=== PATIENT | male | born 1945 | race Caucasian/White ===

== ENCOUNTER → 2017-04-14 09:03 | Outpatient (CLI) | payer MEDICARE, SELFPAY ==
[2017-04-14 15:55] LABS: T3 Total - Triiodothyronine 0.78 ng/mL (0.6-1.81)
[2017-04-14 15:56] LABS: Ferritin 54 ng/mL (26-388); Iron 58 ug/dL (65-175); T4 Free Direct 1.14 ng/dL (0.76-1.46); Thyroid Stim Hormone (TSH) 1.95 uIU/mL (0.358-3.74)
== END ==
PROVIDERS: Family Provider Family Medicine; PCP Family Medicine; Visit Provider Family Medicine
DX: E03.9 Hypothyroidism, unspecified (principal); D64.9 Anemia, unspecified
CPT/HCPCS: 36415; 82728; 83540; 84439; 84443; 84480

== ENCOUNTER → 2017-04-21 09:16 | Outpatient (CLI) | payer MEDICARE, SELFPAY ==
--- NOTE | 2017-04-21 09:22 | RAD_ITS ---
STUDY: X-RAY - ABDOMEN/PELVIS REASON FOR EXAM: Male, 71 years old. COLITIS, HX T4 PARAPLEGIC TECHNIQUE: Single AP view of the abdomen / pelvis. COMPARISON: None. FINDINGS: Normal visualized lung bases. There is a moderate amount of colonic fecal material. There is no demonstrated free abdominal air. Large amount of stool in the rectal vault can suggest constipation. The visualized liver, spleen and kidneys are grossly normal in size and morphology. Normal soft tissue structures. Normal visualized osseous structures. RAD/Abdomen Single View IMPRESSION: CONSTIPATION Electronically Signed: Prince Reveles MD at 16:48 EDT , Service support ,
== END ==
PROVIDERS: Family Provider Family Medicine; PCP Family Medicine; Visit Provider Family Medicine
DX: K52.9 Noninfective gastroenteritis and colitis, unspecified (principal)
CPT/HCPCS: 74018

== ENCOUNTER → 2017-05-12 15:45 | Outpatient (CLI) | payer MEDICARE, SELFPAY ==
--- NOTE | 2017-05-12 15:50 | RAD_ITS ---
STUDY: X-RAY - ABDOMEN/PELVIS REASON FOR EXAM: Male, 71 years old. Worsening constipation. Paraplegic. TECHNIQUE: Single AP view of the abdomen / pelvis. COMPARISON: 04/21/2017. FINDINGS: Normal visualized lung bases. There is no definite bowel obstruction, but there is prominent diffuse fecal retention and increasing air and fecal material throughout all bowel loops. No definitely distended loops of bowel. There is no demonstrated free abdominal air. The visualized liver, spleen and kidneys are grossly normal in size and morphology. Normal soft tissue structures. There are diffuse degenerative changes of the visualized lumbar spine. Marked deformities throughout the hips and pubic bones. These are stable. RAD/Abdomen Single View IMPRESSION: Increasing bowel gas and fecal material throughout the GI tract. Electronically Signed: Kalin Curry MD at 11:00 EDT , Service support ,
== END ==
PROVIDERS: Family Provider Family Medicine; PCP Family Medicine; Visit Provider Family Medicine
DX: K59.00 Constipation, unspecified (principal)
CPT/HCPCS: 74018

== ENCOUNTER → 2017-06-05 08:32 | Outpatient (CLI) | payer MEDICARE, SELFPAY ==
[2017-06-05 09:54] LABS: Mean Corp Hgb Conc 32.4 g/gl (32-36); Mean Corpuscular Hgb 28.4 pg (27.0-32.0); Mean Corpuscular Volume 87.5 fL (80-94); Mean Platelet Vol. 9.4 fl (6.2-12.0); Platelet Count 226 K/mm3 (150-450); RBC Distribution Width SD 44.1 fl (35.1-43.9); Red Blood Count 4.23 M/mm3 (4.6-6.2); White Blood Count 6.4 K/mm3 (4.4-11.0)
[2017-06-05 10:00] LABS: Scan Indicated on CBC? Y/N NO
[2017-06-05 10:24] LABS: Hemoglobin A1c 9.2 % (4.2-6.3)
== END ==
PROVIDERS: Family Provider Family Medicine; PCP Family Medicine; Visit Provider Surgery
DX: E11.8 Type 2 diabetes mellitus with unspecified complications (principal); K92.1 Melena
CPT/HCPCS: 36415; 83036; 85027

== ENCOUNTER 2017-06-18 09:10 | Observation (INO) | payer MEDICARE, SELFPAY ==
[2017-06-18 10:09] VITALS: BMI 22.4
[2017-06-18 10:15] VITALS: BP 102/63; PULSE 65; RESP 16; TEMP 36.5; O2SAT 97
[2017-06-18 11:15] LABS: Bedside Glucose 181 mg/dL (70-110)
[2017-06-18 11:28] LABS: Hematocrit 34.7 % (40-54); Hemoglobin 11.6 g/dl (13.0-16.5); Mean Corp Hgb Conc 33.4 g/gl (32-36); Mean Corpuscular Hgb 28.9 pg (27.0-32.0); Mean Corpuscular Volume 86.3 fL (80-94); Mean Platelet Vol. 9.2 fl (6.2-12.0); Platelet Count 200 K/mm3 (150-450); RBC Distribution Width CV 13.7 % (11.6-14.6); RBC Distribution Width SD 42.3 fl (35.1-43.9); Red Blood Count 4.02 M/mm3 (4.6-6.2); Scan Indicated on CBC? Y/N NO; White Blood Count 7.4 K/mm3 (4.4-11.0)
[2017-06-18] MEDS: Electrolyte Solution/Peg's 4000 ML PO (12:16)
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
--- NOTE | 2017-06-18 14:27 | NURSING ---
wound photo: sacrum
--- NOTE | 2017-06-18 14:28 | NURSING ---
wound photo: francesco-rectal area
--- NOTE | 2017-06-18 14:28 | NURSING ---
wound photo: left lateral ankle
[2017-06-18 14:35] VITALS: BP 129/65; PULSE 83; RESP 16; TEMP 36.6; O2SAT 98
[2017-06-18 15:55] LABS: Bedside Glucose 158 mg/dL (70-110)
[2017-06-18 20:27] VITALS: BP 153/66; PULSE 84; RESP 18; TEMP 36.6; O2SAT 100
[2017-06-18 20:50] VITALS: BP 153/66; PULSE 84
[2017-06-18] MEDS: Metoprolol Tartrate 25 MG Tablet PO (20:50)
[2017-06-18] MEDS: Pravastatin 40 MG Tablet PO (20:51)
[2017-06-18 23:16] LABS: Bedside Glucose 156 mg/dL (70-110)
[2017-06-19] VITALS (11 sets, daily range): BP systolic 117–135; BP diastolic 54–78; PULSE 82–106; RESP 16–18; TEMP 36.6–37.3; O2SAT 97–100
--- NOTE | 2017-06-19 | GASB_PTH ---
PATIENT: LUIS CEDILLO LOC: MS3 U#:[id number] AGE/SX: 71/M [place]OM: [facility] [place]18/[address]: Dr. Katherin Isidro MD : 1945 BED: 1 DIS: 06/20/2017 SPEC #: [id number] RECD: 06/19/17 15:00 STATUS: ACE JHONY #: [id number] CLIFFORD: 06/19/17 00:[address]: Katherin Isidro DEPT: SURGICAL PATHOLOGY RECD BY: Thaddeus Khan ENTERED: 06/19/17 15:01 SP TYPE: Gastric Bx OTHR DR: Dr. Angelina Caceres DO Tissues: A - Gastric mucous membrane B - Gastric mucous membrane Procedures: Special Stain Group II Surgery Specimen Level IV Alcian Blue/PAS (control) HEADER OPERATION: EGD PRE-OP DIAGNOSIS: GERD, epigastric pain, chronic diarrhea TISSUE SUBMITTED: A ? Antral biopsy for histo and H. pylori, B ? GE junction biopsy MICROSCOPIC DIAGNOSIS A. Antral biopsy: Mild gastritis. B. GE junction, biopsy: Fragment of gastric mucosa with mild chronic inflammation. Negative for intestinal metaplasia (goblet cell metaplasia). SJ:eda 06/20/17 COMMENT A. The results of immunohistochemistry for Helicobacter pylori will be reported separately ([id number]). B. Alcian blue/PAS stain with matched control is used in the evaluation of the specimen. MICROSCOPIC DESCRIPTION Slides are reviewed. A. The specimen shows fragments of gastric mucosa with chronic inflammatory cell infiltrates in the lamina propria consisting of lymphocytes and plasma cells, consistent with mild chronic gastritis. GROSS DESCRIPTION A - Received in fixative is one container labeled with the patient's name and designated antral biopsy. The specimen consists of one irregular fragment of light duncan soft tissue that measures 0.6 x 0.3 x 0.1 cm. The specimen is totally submitted in one cassette. B - Received in fixative is one container labeled with the patient's name and designated GE junction. The specimen consists of one irregular fragment of light duncan soft tissue that measures 0.5 x 0.3 x 0.1 cm. The specimen is totally submitted in one cassette. / AM:eda 06/19/17 TC:3 CPT: 93475 x2, 59580
--- NOTE | 2017-06-19 | IMM_PTH ---
PATIENT: LUIS CEDILLO LOC: MS3 U#:[id number] AGE/SX: 71/M ROOM: [facility] RE06/18/[address]: Dr. Katherin Isidro MD : 1945 BED: 1 DIS: 06/20/2017 SPEC #: [id number] RECD: 06/20/17 10:40 STATUS: ACE REQ #: [id number] CLIFFORD: 06/19/17 00:[address]: Katherin Isidro DEPT: IMMUNOHISTOCHEMISTRY RECD BY: Evie Engel ENTERED: 06/20/17 10:41 SP TYPE: IMMUNO OTHR DR: Dr. Angelian Caceres, DO Tissues: A - Stomach, NOS Procedures: H Pylori (initial) PHYSICIAN & INSTITUTION [place] [address] SPECIMEN INFORMATION: Tissue Source: A ? Antral biopsy Clinical Info: GERD, epigastric pain, chronic diarrhea Specimen Number: [id number] CPT code: 28812 METHODOLOGY: Deparaffinized sections of prefer/formalin-fixed tissue or PAP/DQ stained slides are incubated with monoclonal/polyclonal antibodies/oligonucleotide probes. Localization is made via biotin free immunoperoxidase method. Appropriate controls are performed and reacted as expected. Results on target cell population are indicated in the following table: RESULTS: ANTIBODY / CLONE RESULT Block A H Pylori (polyclonal) negative These tests were developed and their performance characteristics determined by [facility]. They may not have been cleared or approved by the U.S. Food and Drug Administration. The FDA has determined that such clearance or approval is not necessary. INTERPRETATION: A. Antral biopsy: Negative for Helicobacter pylori organisms. SJ:eda 06/23/17
[2017-06-19] MEDS: 0.9% NaCl Peripheral Flush Adult/Peds IV ×2 (02:40→20:08)
[2017-06-19] MEDS: Bisacodyl 5 MG Tablet 10 MG PO ×2 (02:41→08:39)
[2017-06-19] MEDS: Magnesium Citrate 300 ML 150 ML PO (03:45)
--- NOTE | 2017-06-19 05:38 | EKG12_ITS ---
Test Reason : AM EKG Blood Pressure : / mmHG Vent. Rate : 095 BPM Atrial Rate : 095 BPM P-R Int : 146 ms QRS Dur : 074 ms QT Int : 330 ms P-R-T Axes : 083 017 077 degrees QTc Int : 414 ms Normal sinus rhythm Nonspecific T wave abnormality Abnormal ECG When compared with ECG of 20-NOV-2016 06:18, No significant change was found Confirmed by EROS ALFONSO, PRABHA ([id number]), science editor JAIDEN KRISHNAMURTHY ([id number]) on 06/27/2017 3:02:12 PM Referred By: Katherin Isidro Confirmed By:PRABHA COONEY MD
[2017-06-19 06:45] LABS: Anion Gap 11 (5-15); BUN 27 mg/dL (7-18); Calcium,Total 8.2 mg/dL (8.5-10.1); Chloride 112 mmol/L (98-107); Creatinine, Serum 0.61 mg/dL (0.70-1.30); EST Glomerular Filtration Rate 137 mL/min (>60); Est Glom Filt Rate - Afr Amer 165 mL/min (>60); Estimated Creatinine Clearance 67.09 ml/min; Glucose 170 mg/dL (74-106); Potassium 4.3 mmol/L (3.5-5.1); Sodium Level 139 mmol/L (136-145)
[2017-06-19 06:48] LABS: International Normalized Ratio 1.1; Prothrombin Time (Protime)PT. 13.8 SECONDS (11.7-14.9)
[2017-06-19 06:49] LABS: Absolute Lymphocyte Count 1.06 X10^3/ul (0.83-4.51); Absolute Neutrophil Count 7.3 X10^3/uL (2.0-7.7); Basophil# 0.01 X10^3/uL; Basophil% 0.1 % (0-1); Eosinophil# 0.09 X10^3/uL; Hematocrit 33.9 % (40-54); Hemoglobin 11.1 g/dl (13.0-16.5); Lymphocyte # 1.06 X10^3/ul (4.0); Lymphocyte % 11.6 % (19-41); Mean Corp Hgb Conc 32.7 g/gl (32-36); Mean Corpuscular Hgb 28.5 pg (27.0-32.0); Mean Corpuscular Volume 87.1 fL (80-94); Mean Platelet Vol. 9.1 fl (6.2-12.0); Monocyte% 7.6 % (0-10); Neutrophil % 79.6 % (47-70); Partial Thromboplast Time 32.6 Seconds (24.1-36.2); Platelet Count 196 K/mm3 (150-450); RBC Distribution Width CV 13.9 % (11.6-14.6); RBC Distribution Width SD 43.1 fl (35.1-43.9); Red Blood Count 3.89 M/mm3 (4.6-6.2); White Blood Count 9.2 K/mm3 (4.4-11.0)
[2017-06-19] MEDS: Levothyroxine 25 MCG TABLET PO (06:52)
[2017-06-19 06:54] LABS: POSITIVE COUNT NO; POSITIVE DIFFERENTIAL NO; POSITIVE MORPHOLOGY NO
[2017-06-19 07:06] LABS: AST(SGOT) 8 U/L (15-37); Alanine Aminotransfer ALT/SGPT 11 U/L (16-61); Albumin, Serum 2.6 g/dL (3.2-5.0); Alkaline Phosphatase 89 U/L (45-117); Bilirubin, Direct 0.07 mg/dL (0.00-0.30); Globulin 3.5 g/dL (2.2-4.2); Protein, Total 6.1 g/dL (6.4-8.2)
[2017-06-19 07:06] LABS: Bedside Glucose 172 mg/dL (70-110)
[2017-06-19] MEDS: Pantoprazole Sodium 40 MG Tablet PO (07:54)
[2017-06-19] MEDS: Metoprolol Tartrate 25 MG Tablet PO (07:54)
[2017-06-19 11:05] LABS: Bedside Glucose 220 mg/dL (70-110)
--- NOTE | 2017-06-19 11:44 | NURSING ---
Report called to Jessa PEDROZA.
--- NOTE | 2017-06-19 13:57 | PCM.OPRPT ---
Report of Operation Date of Procedure: 06/19/17 Pre-Operative Diagnosis: GERD, Epigastric pain, chronic diarrhea Post-Operative Diagnosis: Gastritis/GERD, incomplete colonoscopy due to poor prep only able to get to the sigmoid with very poor visibility Surgery/Procedure Performed:: EGD with biopsy, flexible sigmoidoscopy Type of Anesthesia:: MAC Anesthesiologist: Sampson Faith Specimen's removed: 1. Antrum 2. GE junction Estimated Blood Loss (mL): Minimal Description of Procedure: Procedure: EGD with biopsy After obtaining informed consent, the endoscope was passed under direct visualization. Throughout the procedure, patient's blood pressure, pulse, oxygen saturations were monitored continuously by anesthesia. The endoscope was introduced through the mouth and advanced to the 2nd part of the duodenum. The upper GI endoscopy was accomplished without difficulty. Patient tolerated procedure well. Findings: Small hiatal hernia was present. Erythematous mucosa found gastric body and antrum. There is also mucosal change at the GE junction biopsy with cold forceps was taken of this area as well Biopsies were taken with cold biopsy for histology. Estimated blood loss was minimal. The duodenum was normal. Impression: 1. Small hiatal hernia 2. Erythematous mucosa in the body and antrum. Biopsied. 3. Normal examined duodenum Recommendations: -Await biopsies -Continue PPI -Will start Carafate 1 g p.o. 4 times daily once he finishes his repeat bowel prep for his colonoscopy Procedure: Flexible sigmoidoscopy After reviewing the risks benefits, the patient was deemed in satisfactory condition to undergo procedure. After obtaining informed consent, the scope was passed under direct visualization. Throughout the procedure, the patient's blood pressure pulse and position saturations were monitored continuously anesthesia. The colonoscope was introduced through the anus there is still solid stool as well as thick brown liquid stool. The patient tolerated procedure well. Quality of bowel prep was poor unable to complete colonoscopy. Findings: The perianal and digital rectal exam internal hemorrhoids due to lack sphincter due to his paraplegia There is solid stool as well as thick brown/duncan liquid stool unable to visualize well and only able to get to the proximal sigmoid colon. Impression: 1. Poor prep need to repeat colonoscopy after reprepping Recommendations: Will give the patient Dulcolax and magnesium citrate to reprepped and see if he is having clear stools at that time if not will continue the bowel prep.
[2017-06-19] MEDS: Bisacodyl 5 MG Tablet 20 MG PO (14:36)
[2017-06-19] MEDS: Magnesium Citrate 300 ML PO (16:36)
[2017-06-19 16:45] LABS: Bedside Glucose 134 mg/dL (70-110)
[2017-06-19] MEDS: Ondansetron 4 MG/2 ML Vial IV (20:08)
[2017-06-19 22:11] LABS: Bedside Glucose 153 mg/dL (70-110)
[2017-06-20] VITALS (11 sets, daily range): BP systolic 115–153; BP diastolic 53–80; PULSE 82–110; RESP 14–20; TEMP 36.6–37.3; O2SAT 97–100; BMI 22.4
--- NOTE | 2017-06-20 | COLBX_PTH ---
PATIENT: LUIS CEDILLO LOC: MS3 U#:[id number] AGE/SX: 71/M ROOM: [facility] [place] RE06/18/[address]: Dr. Katherin Isidro MD : 1945 BED: 1 DIS: 06/20/2017 SPEC #: [id number] RECD: 06/20/17 14:36 STATUS: ACE REDenzel #: [id number] CLIFFORD: 06/20/17 00:[address]: Katherin Isidro DEPT: SURGICAL PATHOLOGY RECD BY: Thaddeus Khan ENTERED: 06/20/17 14:38 SP TYPE: COLON BX PAIGE DR: Dr. Angelina Caceres DO Tissues: A - Descending colon B - Sigmoid colon biopsy C - Sigmoid colon biopsy D - Rectum, NOS Procedures: Surgery Specimen Level IV HEADER OPERATION: Colonoscopy PRE-OP DIAGNOSIS: Diarrhea TISSUE SUBMITTED: A ? Descending colon biopsy at 50 cm, B ? Sigmoid colon biopsy, C ? Distal sigmoid colon biopsy at 20 cm, D ? Rectal biopsy MICROSCOPIC DIAGNOSIS A. Descending colon at 50 cm, biopsy: Fragments of colonic mucosa, no pathologic diagnosis. B. Sigmoid colon, biopsy: Fragment of colonic mucosa, no pathologic diagnosis. C. Distal sigmoid colon at 20 cm, biopsy: Fragments of colonic mucosa, no pathologic diagnosis. D. Rectal biopsy: Fragments of colonic mucosa, no pathologic diagnosis. SJ:eda 06/23/17 MICROSCOPIC DESCRIPTION Slides are reviewed. GROSS DESCRIPTION A - Received in fixative is one container labeled with the patient's name and designated descending colon biopsy. The specimen consists of two irregular fragments of light duncan soft tissue that in aggregate measure 0.3 x 0.2 x 0.1 cm. The specimen is totally submitted in one cassette. B - Received in fixative is one container labeled with the patient's name and designated sigmoid colon biopsy. The specimen consists of one irregular fragment of light duncan soft tissue that measures 0.6 x 0.3 x 0.1 cm. The specimen is totally submitted in one cassette. C - Received in fixative is one container labeled with the patient's name and designated distal sigmoid. The specimen consists of two irregular fragments of light duncan soft tissue that in aggregate measure 0.5 x 0.5 x 0.2 cm. The specimen is totally submitted in one cassette. D - Received in fixative is one container labeled with the patient's name and designated rectal biopsy. The specimen consists of one irregular fragment of light duncan soft tissue that measures 0.3 x 0.2 x 0.1 cm. The specimen is totally submitted in one cassette. / AM:eda 06/20/17 TC:4 CPT: 34275 x4
--- NOTE | 2017-06-20 00:50 | NURSING ---
This RN notified primary RN that patient started having bile vomit of at least 200mls+. Stool remains watery graining brown color. Patient stated he felt dizzy and didnt feel right, sweaty, BG was 148 when checked. PRN zofran not available to give until 0200.
--- NOTE | 2017-06-20 00:52 | NURSING ---
Patient states that since he vomitied he does feel better.
[2017-06-20 01:00] LABS: Bedside Glucose 148 mg/dL (70-110)
--- NOTE | 2017-06-20 01:14 | NURSING ---
Made aware by SOO & YOVANY Moctezuma that pt became light-headed and sweaty. Blood sugar was checked and came back at 148. Pt then vomited around 200ml of bile. Pt states feels much better after he vomited & does not need any nausea meds at this time. Pt was cleaned up and repositioned in bed. Will continue to monitor.
[2017-06-20] MEDS: Ondansetron 4 MG/2 ML Vial IV (04:02)
[2017-06-20] MEDS: 0.9% NaCl Peripheral Flush Adult/Peds IV (04:02)
--- NOTE | 2017-06-20 04:10 | NURSING ---
Pt had another episode of getting sweaty and then vomited about 100ml of green bile. denies dizziness this time. Pt states feels better, Zofran was given. Denies abd pain. Abd soft, bowel sounds present. Will make MD aware. INJECTION MOLDING ENGINEER states stools are still liquid brown.
--- NOTE | 2017-06-20 05:30 | NURSING ---
Soap suds enema given per MD orders.
[2017-06-20 06:46] LABS: Anion Gap 11 (5-15); BUN 24 mg/dL (7-18); BUN/Creat Ratio 38.2 RATIO (10-20); Calcium,Total 8.3 mg/dL (8.5-10.1); Chloride 113 mmol/L (98-107); Creatinine, Serum 0.63 mg/dL (0.70-1.30); EST Glomerular Filtration Rate 133 mL/min (>60); Est Glom Filt Rate - Afr Amer 161 mL/min (>60); Estimated Creatinine Clearance 67.09 ml/min; Glucose 158 mg/dL (74-106); Potassium 5.3 mmol/L (3.5-5.1); Sodium Level 140 mmol/L (136-145)
[2017-06-20 07:04] LABS: Magnesium 2.4 mg/dL (1.6-2.6)
[2017-06-20] MEDS: 0.9% Normal Saline 1,000 ML 125 ML IV (07:25)
--- NOTE | 2017-06-20 07:51 | NURSING ---
Pt is scheduled for a repeat colonoscopy today since prep was not effective enough yesterday. will monitor wounds. difficult to keep areas clean d/t prep.
--- NOTE | 2017-06-20 08:04 | NURSING ---
called report to Julio C PEDROZA.
[2017-06-20 09:02] LABS: Potassium 5.2 mmol/L (3.5-5.1)
--- NOTE | 2017-06-20 09:09 | PCM.PN.SRG ---
Subjective: +n/v with the bowel prep, stool is liquid yellow - Physical Exam General: Alert, Oriented x3, Cooperative, No apparent distress Lungs: Normal air movement Cardiovascular: Regular rate Abdomen: Soft, Non Tender, Distended - mild, Hernia - ventral hernia- reducible, - - no guarding/rebound, urostomy pink Vital Signs Temp Pulse Resp BP Pulse Ox 98.1 F 94 14 137/60 H 100 06/20/17 08:38 06/20/17 08:38 06/20/17 08:38 06/20/17 08:38 06/20/17 08:38 Oxygen Delivery Method Room Air Weight: 158 lb 15.253 oz Body Mass Index (BMI) 22.4 Intake and Output for Last 24 Hours 06/18/17 06/19/17 06/20/17 23:59 23:59 23:59 Intake Total 3050 / 3050 4323 / 4323 2044 / 2044 Output Total 700 / 700 1900 / 1900 1000 / 1000 Balance 2350 / 2350 2423 / 2423 1044 / 1044 Laboratory Tests Past 24 Hrs 06/20/17 06/20/17 06/20/17 06:16 06:20 08:05 Sodium 140 Potassium 5.3 H 5.2 H Chloride 113 H Carbon Dioxide 16.0 L Anion Gap 11 BUN 24 H Creatinine 0.63 L Estim Creat Clear Calc 67.09 Est GFR (MDRD) Af Amer 161 Est GFR (MDRD) Non-Af 133 BUN/Creatinine Ratio 38.2 H Glucose 158 H Calcium 8.3 L Magnesium 2.4 POC Glucose 06/20/17 06/19/17 06/19/17 00:47 22:00 16:34 POC Glucose 148 H 153 H 134 H 06/19/17 10:58 POC Glucose 220 H Medical Necessity - Tobacco Use Smoking Status: Never smoker Assessment/Plan 71-year-old male with GERD and chronic diarrhea 1.. Pt had some n/v with the additional bowel prep yesterday, but stool is yellow liquid currently. Plan for colonoscopy today. due to pt chronic diarrhea will take random biopsies to look for etiology of diarrhea, but EGD did show gastritis which could also cause diarrhea- await biopsies. Katherin Isidro M.D. Pager: [phone] [facility] [address] [place] [address], [facility], [address] [place] [address] Office: [phone]
--- NOTE | 2017-06-20 09:13 | PN.SURG_ITS ---
Subjective: +n/v with the bowel prep, stool is liquid yellow - Physical Exam General: Alert, Oriented x3, Cooperative, No apparent distress Lungs: Normal air movement Cardiovascular: Regular rate Abdomen: Soft, Non Tender, Distended - mild, Hernia - ventral hernia- reducible , - - no guarding/rebound, urostomy pink Vital Signs Temp Pulse Resp BP Pulse Ox 98.1 F 94 14 137/60 H 100 06/20/17 08:38 06/20/17 08:38 06/20/17 08:38 06/20/17 08:38 06/20/17 08:38 Oxygen Delivery Method Room Air Weight: 158 lb 15.253 oz Body Mass Index (BMI) 22.4 Intake and Output for Last 24 Hours 06/18/17 06/19/17 06/20/17 23:59 23:59 23:59 Intake Total 3050 / 3050 4323 / 4323 2044 / 2044 Output Total 700 / 700 1900 / 1900 1000 / 1000 Balance 2350 / 2350 2423 / 2423 1044 / 1044 Laboratory Tests Past 24 Hrs 06/20/17 06/20/17 06/20/17 06:16 06:20 08:05 Sodium 140 Potassium 5.3 H 5.2 H Chloride 113 H Carbon Dioxide 16.0 L Anion Gap 11 BUN 24 H Creatinine 0.63 L Estim Creat Clear Calc 67.09 Est GFR (MDRD) Af Amer 161 Est GFR (MDRD) Non-Af 133 BUN/Creatinine Ratio 38.2 H Glucose 158 H Calcium 8.3 L Magnesium 2.4 POC Glucose 06/20/17 06/19/17 06/19/17 00:47 22:00 16:34 POC Glucose 148 H 153 H 134 H 06/19/17 10:58 POC Glucose 220 H Medical Necessity - Tobacco Use Smoking Status: Never smoker Assessment/Plan 71-year-old male with GERD and chronic diarrhea 1.. Pt had some n/v with the additional bowel prep yesterday, but stool is yellow liquid currently. Plan for colonoscopy today. due to pt chronic diarrhea will take random biopsies to look for etiology of diarrhea, but EGD did show gastritis which could also cause diarrhea- await biopsies. Katherin Isidro M.D. Pager: [phone] [facility] [address] [place] [address], [facility], [address] [place] [address] Office: [phone]
--- NOTE | 2017-06-20 10:47 | OP.PCM_ITS ---
Report of Operation Date of Procedure: 06/20/17 Pre-Operative Diagnosis: chronic diarrhea Post-Operative Diagnosis: incomplete colonoscopy due to poor prep only able to get to the sigmoid with very poor visibility- random biopsies taken of descending/sigmoid/rectum Surgery/Procedure Performed:: flexible sigmoidoscopy with biopsy Type of Anesthesia:: MAC Anesthesiologist: Kaden Jiménez Specimen's removed: 1. Descending colon, 2. Sigmoid colon, 3. Distal sigmoid colon, 4. Rectum Estimated Blood Loss (mL): Minimal Description of Procedure: Procedure: Repeat flexible sigmoidoscopy with biopsies After reviewing the risks benefits, the patient was deemed in satisfactory condition to undergo procedure. After obtaining informed consent, the scope was passed under direct visualization. Throughout the procedure, the patient's blood pressure pulse and position saturations were monitored continuously anesthesia. The colonoscope was introduced through the anus and advanced to the descending colon unable to proceed further due to solid stool with fibrous material. The tong of the sigmoid and descending colon also were kicked with fibrous material that was unable to be removed even with syringe irrigation. Quality of the prep was poor. The patient tolerated procedure well. Findings: The perianal and digital rectal exam revealed internal hemorrhoids and pressure ulcers in his upper gluteal cleft as well as the base of his scrotum. Due to poor prep and solid fibrous stool along with fibrous material caked on the colonic mucosa unable to be removed with syringe irrigation there was poor visibility. Did attempt to wash off some of the mucosa and take random biopsies of the descending, sigmoid, distal sigmoid colon, rectum due to patient 's chronic diarrhea Retroflexed view of the distal rectum and anal verge revealed internal hemorrhoids. Impression: 1. Poor visibility due to prep, random biopsies were taken of the descending, sigmoid, distal sigmoid colon and rectum 2. The distal rectal and anal verge revealed internal hemorrhoids. 3. Pressure ulcers will refer patient to wound center Recommendations: Await biopsies were also have patient start Carafate for his gastritis to see if that makes any difference for his chronic diarrhea but as evidenced by his colonoscopy prep he does not just have chronic diarrhea as he may also have a factor of slow motility. Patient is unable to tolerate the repeat prep yesterday patient will need a repeat colonoscopy in the future would likely be required to be on clears for at least a week prior to trying any prep. He initially was on clears for a day and had GoLSTUARTLY, 4 Dulcolax tabs and half a bottle of mag citrate which still had a poor prep then the following day he was still on clears and had 4 more Dulcolax tabs and a bottle of mag citrate and was unable to tolerate any other prep due to nausea and vomiting. On exam he still had solid fibrous stool. Did discuss with patient that due to his issues with diarrhea unable unable to keep the area clean and his pressure ulcers he may require diverting colostomy. Patient is agreeable to see colorectal surgeon to have this done as he has had multiple abdominal surgeries and also has a urostomy currently in place. He was interested in seeing anyone who specializes with paraplegia as to if his colon motility could be related to that. Will check at [facility]. - Complications none
--- NOTE | 2017-06-20 10:48 | PCM.DC.GS ---
Discharge Diet: Light diet - advance as tolerated Discharge Activity: Return to Normal Activity Allergies/Adverse Reactions: Allergies codeine Adverse Reaction (Verified 05/28/17 13:10) heavy sweats prednisone Adverse Reaction (Verified 05/28/17 13:10) headache, heavy sweats Medications to take at Discharge Metformin HCl 1,000 mg PO BID 05/26/14 Ascorbic Acid [C-1000] 1,000 mg PO DAILY 01/02/15 Glimepiride [Amaryl] 4 mg PO DAILY 01/02/15 Levothyroxine [Synthroid] 25 mcg PO DAILY 01/02/15 Metoprolol Tartrate [Lopressor (beta jose)] 25 mg PO BID 01/02/15 Cholecalciferol (Vitamin D3) [Vitamin D3] 1,000 unit PO DAILY 04/05/16 colestipol 1 gram tablet 1 g PO ONCE 05/28/17 omeprazole 40 mg capsule,delayed release 40 mg PO QDAY 05/28/17 pravastatin 10 mg tablet 40 mg PO QHS tab 05/28/17 zinc 50 mg tablet 50 mg PO QDAY 05/28/17 Ferrous Gluconate [Iron] 236 mg PO DAILY 06/18/17 Sucralfate [Carafate] 1 gm PO 4X/DAY #120 tab 06/20/17 The following prescriptions were given: Sucralfate [Carafate] 1 gm PO 4X/DAY #120 tab Primary Care Physician: Angelina Caceres DO [Primary Care Provider] - Please follow up with your Primary Care Physician in: wound care Proposed Discharge Date: 06/20/17
--- NOTE | 2017-06-20 11:01 | DS.PCM_ITS ---
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 Patient was admitted for bowel prep for a EGD and colonoscopy due to GERD epigastric pain and chronic diarrhea. When he was admitted the nurses did note that he had pressure wounds to his sacrum as well as his left lower extremity laterally. Wound care was consulted however due to his diarrhea for the prep is difficult to keep dressings on his sacrum currently. Patient initially underwent a bowel prep with GoLYTELY, 4 Dulcolax and half bottle of mag citrate however that was insufficient and he still had solid stool was in able to visualize his colon and was only able to get to his sigmoid colon. Patient again was kept on clears and attempted to be reprepped with 4 Dulcolax and mag citrate however he did have nausea and vomiting was unable to tolerate anymore and he did have a soapsuds enema as well as a tap water enema however on exam he still had solid fibrous stool along with fibrous debris caking his sigmoid and descending colon unable to proceed any further with the exam he did get random biopsies done of this area with hopes of getting etiology for his chronic diarrhea. However due to needing to different preps he obviously does not just have chronic diarrhea he may have colonic motility issue related with his paraplegia. On discharge will have patient set up with wound care and hopefully some additional home health as he only has someone come see him once a week which is currently does not appear to be sufficient. And he has not seen the wound center in about a year. She is also interested in talking with colorectal surgeon at [facility]-- or [facility] depending on when he can get in--about the possibility of having diverting her permanent colostomy as this is currently not been manageable for him as well as allowing the wounds to heal. Discharge Diet: Light diet - advance as tolerated Discharge Activity: Return to Normal Activity Home Medications: Medications to take at Discharge Metformin HCl 1,000 mg PO BID 05/26/14 Ascorbic Acid [C-1000] 1,000 mg PO DAILY 01/02/15 Glimepiride [Amaryl] 4 mg PO DAILY 01/02/15 Levothyroxine [Synthroid] 25 mcg PO DAILY 01/02/15 Metoprolol Tartrate [Lopressor (beta jose)] 25 mg PO BID 01/02/15 Cholecalciferol (Vitamin D3) [Vitamin D3] 1,000 unit PO DAILY 04/05/16 colestipol 1 gram tablet 1 g PO ONCE 05/28/17 omeprazole 40 mg capsule,delayed release 40 mg PO QDAY 05/28/17 pravastatin 10 mg tablet 40 mg PO QHS tab 05/28/17 zinc 50 mg tablet 50 mg PO QDAY 05/28/17 Ferrous Gluconate [Iron] 236 mg PO DAILY 06/18/17 Sucralfate [Carafate] 1 gm PO 4X/DAY #120 tab 06/20/17 Following Prescrptions Were Given to Patient: Sucralfate [Carafate] 1 gm PO 4X/DAY #120 tab Primary Care Physician: Angelina Caceres DO [Primary Care Provider] - Please follow up with your Primary Care Physician in: wound care Medical Necessity - Tobacco Use Smoking Status: Never smoker Meaningful Use Info Meaningful Use Diagnoses (Choose all that apply): None applicable
--- NOTE | 2017-06-20 11:26 | CASEMGMT ---
YOVANY LUNA received update from Dr. Gunter that patient is requiring more assistance. YOVANY LUNA discussed discharge needs. Patient states that he has aides that assist with care but was agreeable to [facility] to assist and monitor wound care. Patient prefers [facility], referral sent and awaiting call back. YOVANY LUNA will continue to follow this patient and plan for a safe discharge.
[2017-06-20] MEDS: Pantoprazole Sodium 40 MG Tablet PO (11:34)
[2017-06-20] MEDS: Metoprolol Tartrate 25 MG Tablet PO (11:34)
[2017-06-20 12:05] LABS: Bedside Glucose 163 mg/dL (70-110)
[2017-06-20 13:15] LABS: Bedside Glucose 154 mg/dL (70-110)
== END 2017-06-20 15:22 | disposition home health service (06) ==
PROVIDERS: Anesthesiology; Admitting Provider Surgery; Family Provider Family Medicine; PCP Family Medicine; Visit Provider Surgery
PROC: 0DJD8ZZ Inspection of Lower Intestinal Tract, Via Natural or Artificial Opening Endoscopic (ICD-10-PCS; CPT 45378; principal; 2017-06-19 12:55)
DX: K52.9 Noninfective gastroenteritis and colitis, unspecified (principal); G82.20 Paraplegia, unspecified; Z89.611 Acquired absence of right leg above knee; E78.5 Hyperlipidemia, unspecified; K29.70 Gastritis, unspecified, without bleeding; K21.9 Gastro-esophageal reflux disease without esophagitis; R10.13 Epigastric pain; K44.9 Diaphragmatic hernia without obstruction or gangrene; K64.8 Other hemorrhoids; L89.159 Pressure ulcer of sacral region, unspecified stage; L89.899 Pressure ulcer of other site, unspecified stage; K43.9 Ventral hernia without obstruction or gangrene; R11.2 Nausea with vomiting, unspecified; E11.22 Type 2 diabetes mellitus with diabetic chronic kidney disease; I12.9 Hypertensive chronic kidney disease with stage 1 through stage 4 chronic kidney disease, or unspecified chronic kidney disease; N18.9 Chronic kidney disease, unspecified
CPT/HCPCS: 43239; 45330; 45331; 36415; 80048; 80076; 82962; 83036; 83735; 84132; 85025; 85027; 85610; 85730; 88305; 88313; 88342; 93005; 96361; 96374; 96376; 99218; J7030; J7120; A4216; G0378; G0379; J2405

== ENCOUNTER 2017-07-09 10:30 | Outpatient (RCR) | payer MEDICARE, SELFPAY ==
[2017-07-02 09:32] VITALS: BP 135/71; PULSE 98; RESP 18; TEMP 36.4; BMI 22.6
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
[2017-07-09 10:42] VITALS: BP 124/74; PULSE 95; RESP 16; TEMP 36.2; BMI 22.6
--- NOTE | 2017-07-09 13:31 | PCM.WC.PN ---
(1) Pressure ulcer of sacral region, stage 3 Status: Acute Current Visit: Yes Code(s): L89.153 - Pressure ulcer of sacral region, stage 3 (2) Diabetes mellitus Status: Chronic Current Visit: Yes Qualifiers: Code(s): E11.9 - Type 2 diabetes mellitus without complications (3) Paraplegia Status: Chronic Current Visit: Yes Code(s): G82.20 - Paraplegia, unspecified (4) Pressure ulcer of buttock Status: Resolved Current Visit: No (5) Pressure ulcer of perianal region Status: Resolved Current Visit: Yes Code(s): L89.159 - Pressure ulcer of sacral region, unspecified stage (6) Scrotal ulcer Status: Acute Current Visit: Yes Code(s): N50.89 - Other specified disorders of the male genital organs Type of Wound Date of Service: 07/09/17 Chief Complaint: Pressure ulcer to the perineal region History of Wound: Mr. Small is a 71yo with past medical history of diabetes mellitus type 2 and paraplegia who presents here with decubitus ulcer. He has been seen here several locations due to similar ulcers. Said episode was said to started about 2-3 weeks ago during an period of diarrhea. He is managed by his home health in his to foam applied to the wound daily without significant improvement. He feels well otherwise and denies chills, fever, nausea or vomiting. Progress of Wound: Mr Small presents with worsening perineal and new scrotal ulcers. He has had significant diarrhea and due to his debility/ paralysis without help, was sitting in his fecal content for an extended period of time. He also has a new left ankle wound which per patient has been present for weeks but was covered with a band aid on hospital discharge. He denies any known history of trauma. - Physical Exam Vital Signs Temp Pulse Resp BP 97.1 F L 95 16 124/74 H 07/09/17 10:42 07/09/17 10:42 07/09/17 10:42 07/09/17 10:42 General: Alert, Oriented x3, Cooperative, No apparent distress HEENT: Atraumatic, Normocephalic Oral: Moist Mucosa Neck: Supple Lungs: Normal air movement Abdomen: Non Tender Extremities: No cyanosis Skin: Ulcer/ Wound Wound Measurements and Assessment WC - Nurse 1 - General Ulcer Measurement Start: 07/02/17 09:32 Freq: Status: Active Protocol: Activity Type Activity Date Activity User E-Sign Co-Sign Detail Recorded Client Recorded Date Recorded By Document 07/09/17 10:42 JARRED [id number] 07/09/17 11:12 JARRED 07/09/17 10:42 Wound Center Nurse 1 [Ulcer Assessment] #10 LEFT LATERAL MALEOLLUS -Combined with other wound No -Current Size (cm) - Length 2.9 -Current Size (cm) - Width 2.0 -Current Size (cm) - Depth 0.2 -Total Square Cm 5.80 -Date of Last Picture (Recall this 07/09/17 field) -Photo Taken Yes -Epithelialization None Present -Tunneling No -Undermining/Tunneling No -Circular Undermining No -Classification - Thickness Full Thickness without Exposed Support Structure -Exudate Amt Medium (34-66%) -Exudate Type Serosanguineous -Wound Margin Distinct, Outline Attached -Granulation Amt None Present (0 %) -Granulation Quality N/A -Slough/Fibrin Yes -Necrosis Amt Small (1-33%) -Necrotic Tissue Type Adherent Slough -Structure Exposed None/Limited to Skin Breakdown -Texture (Rachel-wound Skin Appearance) Friable -Moisture (Rachel-wound Skin Appearance Maceration ) -Color (Rachel-wound Skin Appearance) No Abnormality -Temperature (Rachel-wound Skin Cool/Cold Appearance) -Tenderness on Palpation (Rachel-wound No Skin Appearance) -Ulcer Cleansing Rinsed/ Irrigated with Saline -Foul Odor after Cleansing No #9 RACHEL-ANAL -Current Size (cm) - Length 3.4 -Current Size (cm) - Width 4.4 -Current Size (cm) - Depth 0.1 -Total Square Cm 14.96 -Date of Last Picture (Recall this 07/02/17 field) -Photo Taken No -Epithelialization None Present -Tunneling No -Undermining/Tunneling No -Circular Undermining No -Classification - Thickness Full Thickness without Exposed Support Structure -Classification - Pressure Ulcer Stage 1 -Exudate Amt Medium (34-66%) -Exudate Type Serous -Wound Margin Distinct, Outline Attached -Granulation Amt None Present (0 %) -Granulation Quality N/A -Slough/Fibrin Yes -Necrosis Amt None Present (0 %) -Necrotic Tissue Type Adherent Slough -Structure Exposed None/Limited to Skin Breakdown -Texture (Rachel-wound Skin Appearance) No Abnormality -Moisture (Rachel-wound Skin Appearance No Abnormality ) -Color (Rachel-wound Skin Appearance) No Abnormality -Temperature (Rachel-wound Skin No Abnormality Appearance) (Pt Warm) -Tenderness on Palpation (Rachel-wound No Skin Appearance) -Ulcer Cleansing Rinsed/ Irrigated with Saline -Foul Odor after Cleansing No #8 SACRUM -Combined with other wound No -Current Size (cm) - Length 2.0 -Current Size (cm) - Width 0.9 -Current Size (cm) - Depth 0.3 -Total Square Cm 1.80 -Date of Last Picture (Recall this 07/02/17 field) -Photo Taken No -Epithelialization Small 1-33% -Tunneling No -Undermining/Tunneling No -Circular Undermining No -Classification - Thickness Full Thickness without Exposed Support Structure -Classification - Pressure Ulcer Stage 1 -Exudate Amt Small (1-33%) -Exudate Type Serosanguineous -Wound Margin Distinct, Outline Attached -Granulation Amt None Present (0 %) -Granulation Quality N/A -Slough/Fibrin Yes -Necrosis Amt None Present (0 %) -Necrotic Tissue Type Adherent Slough -Structure Exposed N/A -Texture (Rachel-wound Skin Appearance) No Abnormality -Moisture (Rachel-wound Skin Appearance No Abnormality ) -Color (Rachel-wound Skin Appearance) No Abnormality -Temperature (Rachel-wound Skin No Abnormality Appearance) (Pt Warm) -Tenderness on Palpation (Rachel-wound No Skin Appearance) -Ulcer Cleansing Rinsed/ Irrigated with Saline -Foul Odor after Cleansing No [Edema Assessment] -Lower Limb Edema Present No WC - Nurse 2 - General Ulcer CM Notes Start: 07/02/17 09:32 Freq: Status: Active Protocol: Activity Type Activity Date Activity User E-Sign Co-Sign Detail Recorded Client Recorded Date Recorded By Document 07/09/17 12:11 DV [id number] 07/09/17 12:19 DV 07/09/17 12:11 Wound Center Nurse 2 [Procedure/Treatment] #10 LEFT LATERAL MALEOLLUS -Time 12:13 -Correct Patient Yes -Correct Side, Site, Position Yes -Correct Procedure Yes -Procedure Performed Yes -Type of Procedure Debridement -Clinical Debridement Subcutaneous -Post Debridement Size (cm) - Length 2.8 -Post Debridement Size (cm) - Width 2.0 -Post Debridement Size (cm) - Depth 0.1 -Total Square Cm 5.60 -Wound/Ulcer Outcome Not Healed -Ulcer Cleansing Rinsed/ Irrigated with Saline -Foul Odor after Cleansing No -Bioengineered Tissue No -Bleeding Controlled with Pressure -Treatment Response Procedure Tolerated Well #9 RACHEL-ANAL -Time 12:15 -Correct Patient Yes -Correct Side, Site, Position Yes -Correct Procedure Yes -Procedure Performed Yes -Type of Procedure Debridement -Clinical Debridement Subcutaneous -Post Debridement Size (cm) - Length 3.5 -Post Debridement Size (cm) - Width 4.6 -Post Debridement Size (cm) - Depth 0.1 -Total Square Cm 16.10 -Wound/Ulcer Outcome Not Healed -Ulcer Cleansing Rinsed/ Irrigated with Saline -Foul Odor after Cleansing No -Bioengineered Tissue No -Bleeding Controlled with Pressure -Treatment Response Procedure Tolerated Well #8 SACRUM -Time 12:15 -Correct Patient Yes -Correct Side, Site, Position Yes -Correct Procedure Yes -Procedure Performed Yes -Type of Procedure Debridement -Clinical Debridement Subcutaneous -Post Debridement Size (cm) - Length 2.1 -Post Debridement Size (cm) - Width 0.8 -Post Debridement Size (cm) - Depth 0.8 -Total Square Cm 1.68 -Wound/Ulcer Outcome Not Healed -Ulcer Cleansing Rinsed/ Irrigated with Saline -Foul Odor after Cleansing No -Bioengineered Tissue No -Bleeding Controlled with Pressure -Treatment Response Procedure Tolerated Well [See Physician Procedure note for Specifics] Pain Scale: 0-10 Numeric [Pain] -Is Patient Pain Free? Yes Neurological: Cranial nerves II-XII grossly intact Psych/Mental Status: Normal Affect Debridement Note Post-Debridement Measurements/Treatment WC - Nurse 2 - General Ulcer CM Notes Start: 07/02/17 09:32 Freq: Status: Active Protocol: Activity Type Activity Date Activity User E-Sign Co-Sign Detail Recorded Client Recorded Date Recorded By Document 07/02/17 10:43 DV [id number] 07/02/17 10:55 DV Document 07/09/17 12:11 DV [id number] 07/09/17 12:19 DV 07/02/17 07/09/17 10:43 12:11 Wound Center Nurse 2 #10 LEFT LATERAL MALEOLLUS -Time 12:13 -Correct Patient Yes -Correct Side, Site, Position Yes -Correct Procedure Yes -Procedure Performed Yes -Type of Procedure Debridement -Clinical Debridement Subcutaneous -Post Debridement Size (cm) - Length 2.8 -Post Debridement Size (cm) - Width 2.0 -Post Debridement Size (cm) - Depth 0.1 -Total Square Cm 5.60 -Wound/Ulcer Outcome Not Healed -Ulcer Cleansing Rinsed/ Irrigated with Saline -Foul Odor after Cleansing No -Bioengineered Tissue No -Bleeding Controlled with Pressure -Treatment Response Procedure Tolerated Well #9 RACHEL-ANAL -Time 10:49 12:15 -Correct Patient Yes Yes -Correct Side, Site, Position Yes Yes -Correct Procedure Yes Yes -Procedure Performed Yes Yes -Type of Procedure Debridement Debridement -Clinical Debridement Subcutaneous Subcutaneous -Post Debridement Size (cm) - Length 1.9 3.5 -Post Debridement Size (cm) - Width 1.6 4.6 -Post Debridement Size (cm) - Depth 0.1 0.1 -Total Square Cm 3.04 16.10 -Wound/Ulcer Outcome Not Healed Not Healed -Ulcer Cleansing Rinsed/ Rinsed/ Irrigated with Irrigated with Saline Saline -Foul Odor after Cleansing No No -Bioengineered Tissue No No -Bleeding Controlled with Pressure Pressure -Treatment Response Procedure Procedure Tolerated Well Tolerated Well #8 SACRUM -Time 10:48 12:15 -Correct Patient Yes Yes -Correct Side, Site, Position Yes Yes -Correct Procedure Yes Yes -Procedure Performed Yes Yes -Type of Procedure Debridement Debridement -Clinical Debridement Subcutaneous Subcutaneous -Post Debridement Size (cm) - Length 2.4 2.1 -Post Debridement Size (cm) - Width 0.9 0.8 -Post Debridement Size (cm) - Depth 0.7 0.8 -Total Square Cm 2.16 1.68 -Wound/Ulcer Outcome Not Healed Not Healed -Ulcer Cleansing Rinsed/ Rinsed/ Irrigated with Irrigated with Saline Saline -Foul Odor after Cleansing No No -Bioengineered Tissue No No -Bleeding Controlled with Pressure Pressure -Treatment Response Procedure Procedure Tolerated Well Tolerated Well Pain Scale: 0-10 Numeric Is Patient Pain Free? Yes Yes Wound debrided: Left ankle ulcer Wound Grade/Stage: Stage II Type of Debridement: Excisional debridement Depth: Down to and including healthy tissue, in the subcutaneous layer Percentage of wound debrided: 100 Instrument Used: 5mm curette Tissue Removed: Biofilm and devitalized tissue Severity: Fat Layer Exposed Amount of bleeding with debridement: Mild Bleeding Controlled with: Pressure Patient tolerated procedure well - Additional Wound Wound debrided: Sacral Ulcer Wound Grade/Stage: Stage II Type of Debridement: Excisional debridement Anesthesia Used: 4% Lidocaine Solution Depth: Down to and including healthy tissue, in the subcutaneous layer Percentage of wound debrided: 100 Instrument Used: 5mm curette Tissue Removed: Slough and devitalized tissue Severity: Fat Layer Exposed Amount of bleeding with debridement: Mild Bleeding Controlled with: Pressure Patient tolerated procedure: Patient tolerated procedure well - Additional Wound Wound debrided: Perineal ulcer Wound Grade/Stage: Stage III Type of Debridement: Excisional debridement Anesthesia Used: 4% Lidocaine Solution Depth: Down to and including healthy tissue, in the subcutaneous layer Percentage of wound debrided: 100 Instrument Used: 5mm curette Tissue Removed: Slough, Biofilm and devitalized tissue Severity: Fat Layer Exposed Amount of bleeding with debridement: Mild Bleeding Controlled with: Pressure Patient tolerated procedure: Patient tolerated procedure well Assessment/Plan Active Problems Pressure ulcer of sacral region, stage 3 (Acute) Scrotal ulcer (Acute) Paraplegia (Chronic) Diabetes mellitus (Chronic) Assessment: Stage III pressure ulcer ( Sacrum ). Stage III pressure ulcer ( perineal ). Scrotal Ulcer. Left ankle Ulcer. Paraplegia. Type II DM Plan: Mr. Small presents new scrotal and left ankle ulcers. He has had problems with diarrhea and has not been able to care for himself due to his paralysis. He has home helath come in infrequently and so icreased contact of the wound with fecal matter. Significant worsening of the perineal ulcer in the past week. Debridement done as documented above. Procedure was well tolerated. Started on Abx per culture/ sensitivity. Apply Callie daily to all but the scrotal ulcer with adaptic overtop. Santyl to scrotal ulcer. Change daily. Zinc oxide cream to the periwound area. Gel cushions and low loss air mattress. Reposition often. Patient states that he is willing to get a private aide o help with his wound care than go in a NH. He was encouraged to. Optimal blood sugar control is encouraged. Patient is advised to follow up with his PCP closely to monitor. He will be a good candidate for a skin sub considering also his good response in the past however, will hold off until there is no significant risk of infection or contamination. Follow up in 1 week. This note was generated with [employer] software. It may contain incorrect words, spelling, and punctuation that were not noted in checking the note before signing.
== END 2017-07-10 23:59 ==
LOC: WC 10:30
PROVIDERS: Family Provider Family Medicine; PCP Family Medicine; Visit Provider Internal Medicine
DX: L89.153 Pressure ulcer of sacral region, stage 3 (principal); L89.892 Pressure ulcer of other site, stage 2; L97.322 Non-pressure chronic ulcer of left ankle with fat layer exposed; N50.89 Other specified disorders of the male genital organs; E11.9 Type 2 diabetes mellitus without complications; G82.20 Paraplegia, unspecified; E78.00 Pure hypercholesterolemia, unspecified; I10 Essential (primary) hypertension; E03.9 Hypothyroidism, unspecified
CPT/HCPCS: 11042; 11045; 87070; 87075; 87077; 87186; 87205; 99213; G0463

== ENCOUNTER 2017-07-30 10:30 | Outpatient (RCR) | payer MEDICARE, SELFPAY ==
[2017-07-11 01:08] VITALS: BP 124/74; PULSE 95; RESP 16; TEMP 36.2
[2017-07-23 11:12] VITALS: BP 156/70; PULSE 77; RESP 16; TEMP 36.3
--- NOTE | 2017-07-23 19:07 | PCM.WC.PN ---
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 Small is a 71yo with past medical history of diabetes mellitus type 2 and paraplegia who presents here with decubitus ulcer. He has been seen here several locations due to similar ulcers. Said episode was said to started about 2-3 weeks ago during an period of diarrhea. He is managed by his home health in his to foam applied to the wound daily without significant improvement. He feels well otherwise and denies chills, fever, nausea or vomiting. Progress of Wound: Stable. No new complaints at this time. - Physical Exam Vital Signs Temp Pulse Resp BP 97.3 F L 77 16 156/70 H 07/23/17 11:12 07/23/17 11:12 07/23/17 11:12 07/23/17 11:12 General: Alert, Oriented x3, Cooperative, No apparent distress HEENT: Atraumatic, TM's Clear Oral: Moist Mucosa Neck: Supple Abdomen: Non Tender Skin: Ulcer/ Wound Wound Measurements and Assessment WC - Nurse 1 - General Ulcer Measurement Start: 07/23/17 11:12 Freq: Status: Active Protocol: Activity Type Activity Date Activity User E-Sign Co-Sign Detail Recorded Client Recorded Date Recorded By Document 07/23/17 11:12 JARRED [id number] 07/23/17 11:29 07/23/17 11:12 Wound Center Nurse 1 [Ulcer Assessment] #11 SCROTUM- POSTERIOR -Combined with other wound No -Current Size (cm) - Length 6.5 -Current Size (cm) - Width 4.0 -Current Size (cm) - Depth 0.1 -Total Square Cm 26.00 -Photo Taken No -Tunneling No -Undermining/Tunneling No -Circular Undermining No -Exudate Amt Small (1-33%) -Exudate Type Serosanguineous -Wound Margin Distinct, Outline Attached -Granulation Amt Small (1-33%) -Granulation Quality Pale [place] -Slough/Fibrin Yes -Necrosis Amt None Present (0 %) -Necrotic Tissue Type Adherent Slough -Structure Exposed None/Limited to Skin Breakdown -Texture (Rachel-wound Skin Appearance) No Abnormality -Moisture (Rachel-wound Skin Appearance No Abnormality ) -Color (Rachel-wound Skin Appearance) No Abnormality -Temperature (Rachel-wound Skin No Abnormality Appearance) (Pt Warm) -Tenderness on Palpation (Rachel-wound No Skin Appearance) -Ulcer Cleansing barrier cream cloth -Foul Odor after Cleansing No #10 LEFT LATERAL MALEOLLUS -Combined with other wound No -Current Size (cm) - Length 2.5 -Current Size (cm) - Width 1.8 -Current Size (cm) - Depth 0.1 -Total Square Cm 4.50 -Date of Last Picture (Recall this 07/09/17 field) -Photo Taken No -Epithelialization None Present -Tunneling No -Undermining/Tunneling No -Circular Undermining No -Exudate Amt Small (1-33%) -Exudate Type Serosanguineous -Wound Margin Distinct, Outline Attached -Granulation Amt None Present (0 %) -Necrosis Amt Large (67-100%) -Necrotic Tissue Type Eschar -Structure Exposed N/A -Texture (Rachel-wound Skin Appearance) No Abnormality -Moisture (Rachel-wound Skin Appearance No Abnormality ) -Color (Rachel-wound Skin Appearance) No Abnormality -Temperature (Rachel-wound Skin No Abnormality Appearance) (Pt Warm) -Tenderness on Palpation (Rachel-wound No Skin Appearance) -Ulcer Cleansing Rinsed/ Irrigated with Saline -Foul Odor after Cleansing No #9 RACHEL-ANAL -Current Size (cm) - Length 2.0 -Current Size (cm) - Width 2.7 -Current Size (cm) - Depth 0.1 -Total Square Cm 5.40 -Photo Taken No -Epithelialization Small 1-33% -Tunneling No -Undermining/Tunneling No -Circular Undermining No -Classification - Thickness Full Thickness without Exposed Support Structure -Classification - Pressure Ulcer Stage 1 -Exudate Amt Small (1-33%) -Exudate Type Serosanguineous -Wound Margin Distinct, Outline Attached -Granulation Amt Small (1-33%) -Granulation Quality Pale [place] -Slough/Fibrin Yes -Necrosis Amt None Present (0 %) -Necrotic Tissue Type Adherent Slough -Structure Exposed None/Limited to Skin Breakdown -Texture (Rachel-wound Skin Appearance) No Abnormality -Moisture (Rachel-wound Skin Appearance No Abnormality ) -Color (Rachel-wound Skin Appearance) No Abnormality -Temperature (Rachel-wound Skin No Abnormality Appearance) (Pt Warm) -Tenderness on Palpation (Rachel-wound No Skin Appearance) -Ulcer Cleansing barrier cream cloth -Foul Odor after Cleansing No #8 SACRUM -Combined with other wound No -Current Size (cm) - Length 2.0 -Current Size (cm) - Width 0.8 -Current Size (cm) - Depth 0.3 -Total Square Cm 1.60 -Photo Taken No -Epithelialization None Present -Tunneling No -Undermining/Tunneling No -Circular Undermining No -Classification - Thickness Full Thickness without Exposed Support Structure -Classification - Pressure Ulcer Stage 2 -Change in Wound Grade/Stage Yes Query Text:If change please identify the Stage/Grade in the comment (ie. S2 G3) -Exudate Amt Small (1-33%) -Exudate Type Serosanguineous -Wound Margin Distinct, Outline Attached -Granulation Amt None Present (0 %) -Granulation Quality N/A -Slough/Fibrin Yes -Necrosis Amt None Present (0 %) -Necrotic Tissue Type Adherent Slough -Structure Exposed N/A -Texture (Rachel-wound Skin Appearance) No Abnormality -Moisture (Rachel-wound Skin Appearance No Abnormality ) -Color (Rachel-wound Skin Appearance) No Abnormality -Temperature (Rachel-wound Skin No Abnormality Appearance) (Pt Warm) -Tenderness on Palpation (Rachel-wound No Skin Appearance) -Ulcer Cleansing barrier cream cloth -Foul Odor after Cleansing No WC - Nurse 2 - General Ulcer CM Notes Start: 07/23/17 11:12 Freq: Status: Active Protocol: Activity Type Activity Date Activity User E-Sign Co-Sign Detail Recorded Client Recorded Date Recorded By Document 07/23/17 12:03 DV [id number] 07/23/17 12:23 DV 07/23/17 12:03 Wound Center Nurse 2 [Procedure/Treatment] #13 Right Buttock -Time 12:19 -Correct Patient Yes -Correct Side, Site, Position Yes -Correct Procedure Yes -Procedure Performed Yes -Type of Procedure Debridement -Clinical Debridement Subcutaneous -Post Debridement Size (cm) - Length 1.5 -Post Debridement Size (cm) - Width 0.6 -Post Debridement Size (cm) - Depth 0.1 -Total Square Cm 0.90 -Wound/Ulcer Outcome Not Healed -Ulcer Cleansing Rinsed/ Irrigated with Saline -Foul Odor after Cleansing No -Bioengineered Tissue No -Bleeding Controlled with Pressure -Treatment Response Procedure Tolerated Well #12 Left buttock -Time 12:18 -Correct Patient Yes -Procedure Performed No -Post Debridement Size (cm) - Length 0 -Post Debridement Size (cm) - Width 0 -Post Debridement Size (cm) - Depth 0 -Total Square Cm 0 -Wound/Ulcer Outcome Healed- Epithelialized #11 SCROTUM- POSTERIOR -Time 12:09 -Correct Patient Yes -Correct Side, Site, Position Yes -Correct Procedure Yes -Procedure Performed Yes -Type of Procedure Debridement -Clinical Debridement Subcutaneous -Post Debridement Size (cm) - Length 7.5 -Post Debridement Size (cm) - Width 2.8 -Post Debridement Size (cm) - Depth 0.2 -Total Square Cm 21.00 -Wound/Ulcer Outcome Not Healed -Ulcer Cleansing Rinsed/ Irrigated with Saline -Bleeding Controlled with Pressure -Treatment Response Procedure Tolerated Well #10 LEFT LATERAL MALEOLLUS -Time 12:11 -Correct Patient Yes -Correct Side, Site, Position Yes -Correct Procedure Yes -Procedure Performed Yes -Type of Procedure Debridement -Clinical Debridement Subcutaneous -Post Debridement Size (cm) - Length 2.5 -Post Debridement Size (cm) - Width 2.1 -Post Debridement Size (cm) - Depth 0.2 -Total Square Cm 5.25 -Wound/Ulcer Outcome Not Healed -Ulcer Cleansing Rinsed/ Irrigated with Saline -Foul Odor after Cleansing No -Bioengineered Tissue No -Bleeding Controlled with Pressure -Treatment Response Procedure Tolerated Well #9 RACHEL-ANAL -Time 12:13 -Correct Patient Yes -Correct Side, Site, Position Yes -Correct Procedure Yes -Procedure Performed Yes -Type of Procedure Debridement -Clinical Debridement Subcutaneous -Post Debridement Size (cm) - Length 2.0 -Post Debridement Size (cm) - Width 2.5 -Post Debridement Size (cm) - Depth 0.1 -Total Square Cm 5.00 -Wound/Ulcer Outcome Not Healed -Ulcer Cleansing Rinsed/ Irrigated with Saline -Foul Odor after Cleansing No -Bioengineered Tissue No -Bleeding Controlled with Pressure -Treatment Response Procedure Tolerated Well #8 SACRUM -Time 12:14 -Correct Patient Yes -Correct Side, Site, Position Yes -Correct Procedure Yes -Procedure Performed Yes -Type of Procedure Debridement -Clinical Debridement Subcutaneous -Post Debridement Size (cm) - Length 1.5 -Post Debridement Size (cm) - Width 1.3 -Post Debridement Size (cm) - Depth 0.4 -Total Square Cm 1.95 -Wound/Ulcer Outcome Not Healed -Ulcer Cleansing Rinsed/ Irrigated with Saline -Foul Odor after Cleansing No -Bioengineered Tissue No -Bleeding Controlled with Pressure -Treatment Response Procedure Tolerated Well [See Physician Procedure note for Specifics] Pain Scale: 0-10 Numeric [Pain] -Is Patient Pain Free? Yes Neurological: Cranial nerves II-XII grossly intact Psych/Mental Status: Normal Affect Debridement Note Post-Debridement Measurements/Treatment WC - Nurse 2 - General Ulcer CM Notes Start: 07/23/17 11:12 Freq: Status: Active Protocol: Activity Type Activity Date Activity User E-Sign Co-Sign Detail Recorded Client Recorded Date Recorded By Document 07/23/17 12:03 DV [id number] 07/23/17 12:23 DV 07/23/17 12:03 Wound Center Nurse 2 #13 Right Buttock -Time 12:19 -Correct Patient Yes -Correct Side, Site, Position Yes -Correct Procedure Yes -Procedure Performed Yes -Type of Procedure Debridement -Clinical Debridement Subcutaneous -Post Debridement Size (cm) - Length 1.5 -Post Debridement Size (cm) - Width 0.6 -Post Debridement Size (cm) - Depth 0.1 -Total Square Cm 0.90 -Wound/Ulcer Outcome Not Healed -Ulcer Cleansing Rinsed/ Irrigated with Saline -Foul Odor after Cleansing No -Bioengineered Tissue No -Bleeding Controlled with Pressure -Treatment Response Procedure Tolerated Well #12 Left buttock -Time 12:18 -Correct Patient Yes -Procedure Performed No -Post Debridement Size (cm) - Length 0 -Post Debridement Size (cm) - Width 0 -Post Debridement Size (cm) - Depth 0 -Total Square Cm 0 -Wound/Ulcer Outcome Healed- Epithelialized #11 SCROTUM- POSTERIOR -Time 12:09 -Correct Patient Yes -Correct Side, Site, Position Yes -Correct Procedure Yes -Procedure Performed Yes -Type of Procedure Debridement -Clinical Debridement Subcutaneous -Post Debridement Size (cm) - Length 7.5 -Post Debridement Size (cm) - Width 2.8 -Post Debridement Size (cm) - Depth 0.2 -Total Square Cm 21.00 -Wound/Ulcer Outcome Not Healed -Ulcer Cleansing Rinsed/ Irrigated with Saline -Bleeding Controlled with Pressure -Treatment Response Procedure Tolerated Well #10 LEFT LATERAL MALEOLLUS -Time 12:11 -Correct Patient Yes -Correct Side, Site, Position Yes -Correct Procedure Yes -Procedure Performed Yes -Type of Procedure Debridement -Clinical Debridement Subcutaneous -Post Debridement Size (cm) - Length 2.5 -Post Debridement Size (cm) - Width 2.1 -Post Debridement Size (cm) - Depth 0.2 -Total Square Cm 5.25 -Wound/Ulcer Outcome Not Healed -Ulcer Cleansing Rinsed/ Irrigated with Saline -Foul Odor after Cleansing No -Bioengineered Tissue No -Bleeding Controlled with Pressure -Treatment Response Procedure Tolerated Well #9 RACHEL-ANAL -Time 12:13 -Correct Patient Yes -Correct Side, Site, Position Yes -Correct Procedure Yes -Procedure Performed Yes -Type of Procedure Debridement -Clinical Debridement Subcutaneous -Post Debridement Size (cm) - Length 2.0 -Post Debridement Size (cm) - Width 2.5 -Post Debridement Size (cm) - Depth 0.1 -Total Square Cm 5.00 -Wound/Ulcer Outcome Not Healed -Ulcer Cleansing Rinsed/ Irrigated with Saline -Foul Odor after Cleansing No -Bioengineered Tissue No -Bleeding Controlled with Pressure -Treatment Response Procedure Tolerated Well #8 SACRUM -Time 12:14 -Correct Patient Yes -Correct Side, Site, Position Yes -Correct Procedure Yes -Procedure Performed Yes -Type of Procedure Debridement -Clinical Debridement Subcutaneous -Post Debridement Size (cm) - Length 1.5 -Post Debridement Size (cm) - Width 1.3 -Post Debridement Size (cm) - Depth 0.4 -Total Square Cm 1.95 -Wound/Ulcer Outcome Not Healed -Ulcer Cleansing Rinsed/ Irrigated with Saline -Foul Odor after Cleansing No -Bioengineered Tissue No -Bleeding Controlled with Pressure -Treatment Response Procedure Tolerated Well Pain Scale: 0-10 Numeric Is Patient Pain Free? Yes Wound debrided: Left ankle Wound Grade/Stage: Stage III Type of Debridement: Excisional debridement Anesthesia Used: 4% Lidocaine Solution Depth: Down to and including healthy tissue, in the subcutaneous layer Percentage of wound debrided: 100 Instrument Used: 5mm curette, #15 blade, Forceps Tissue Removed: Eschar/Necrotic tissue, slough Severity: Fat Layer Exposed Amount of bleeding with debridement: Mild Bleeding Controlled with: Pressure Patient tolerated procedure well - Additional Wound Wound debrided: Sacral ulcer Wound Grade/Stage: Stage III Type of Debridement: Excisional debridement Anesthesia Used: 4% Lidocaine Solution Depth: Down to and including healthy tissue, in the subcutaneous layer Percentage of wound debrided: 100 Instrument Used: 5mm curette Tissue Removed: Slough and devitalized tissue Severity: Fat Layer Exposed Amount of bleeding with debridement: Mild Bleeding Controlled with: Pressure Patient tolerated procedure: Patient tolerated procedure well - Additional Wound Wound debrided: Right Buttock Wound Grade/Stage: Stage II Type of Debridement: Excisional debridement Anesthesia Used: 4% Lidocaine Solution Depth: Down to and including healthy tissue, in the subcutaneous layer Percentage of wound debrided: 100 Instrument Used: 5mm curette Tissue Removed: Slough and devitalized tissue Severity: Fat Layer Exposed Amount of bleeding with debridement: Mild Bleeding Controlled with: Pressure Patient tolerated procedure: Patient tolerated procedure well - Additional Wound Wound debrided: Perineal ulcer Wound Grade/Stage: StageII Type of Debridement: Excisional debridement Anesthesia Used: 4% Lidocaine Solution Depth: Down to and including healthy tissue, in the subcutaneous layer Percentage of wound debrided: 100 Instrument Used: 5mm curette Tissue Removed: Slough and devitalized tissue Severity: Fat Layer Exposed Amount of bleeding with debridement: Mild Bleeding Controlled with: Pressure Patient tolerated procedure: Patient tolerated procedure well - Additional Wound Wound debrided: Scrotal ulcer Wound Grade/Stage: Stage III Type of Debridement: Excisional debridement Anesthesia Used: 4% Lidocaine Solution Depth: Down to and including healthy tissue, in the subcutaneous layer Percentage of wound debrided: 100 Instrument Used: 5mm curette Tissue Removed: Slough and devitalized tissue Severity: Fat Layer Exposed Amount of bleeding with debridement: Mild Bleeding Controlled with: Pressure Patient tolerated procedure: Patient tolerated procedure well Assessment/Plan Active Problems Pressure ulcer of sacral region, stage 3 (Acute) Scrotal ulcer (Acute) 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 Stage III pressure ulcer ( perineal ). Scrotal Ulcer. Left ankle Ulcer. Paraplegia. Type II DM Plan: Currently resides in a custodial until bowel movements are better. Recently started on Metamucil to help with that. Some improvement noted in the ulcers. Debridement done as documented above. Procedure was well tolerated. Continue Santyl to scrotal and left ankle ulcers and Callie to all other ulcers. Zinc oxide cream to the periwound area. Gel cushions and low loss air mattress. Reposition often. Optimal blood sugar control encouraged. He will be a good candidate for a skin sub considering also his good response in the past however, will hold off until there is no significant risk of infection or contamination. Follow up in 1 week. This note was generated with [employer] dictation software. It may contain incorrect words, spelling, and punctuation that were not noted in checking the note before signing.
[2017-07-30 10:41] VITALS: BP 139/60; PULSE 78; RESP 16; TEMP 36.6
--- NOTE | 2017-07-30 12:44 | PCM.WC.PN ---
(1) Pressure ulcer of sacral region, stage 3 Status: Acute Current Visit: Yes Code(s): L89.153 - Pressure ulcer of sacral region, stage 3 (2) Scrotal ulcer Status: Acute Current Visit: Yes Code(s): N50.89 - Other specified disorders of the male genital organs (3) Paraplegia Status: Chronic Current Visit: Yes Code(s): G82.20 - Paraplegia, unspecified (4) Pressure ulcer of buttock Status: Resolved Current Visit: Yes (5) Pressure ulcer of perianal region Status: Resolved Current Visit: Yes Code(s): L89.159 - Pressure ulcer of sacral region, unspecified stage (6) 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 Status: Acute Current Visit: Yes Code(s): L97.322 - Non-pressure chronic ulcer of left ankle with fat layer exposed Type of Wound Date of Service: 07/30/17 Chief Complaint: Pressure ulcer to the perineal region History of Wound: Mr. Small is a 71yo with past medical history of diabetes mellitus type 2 and paraplegia who presents here with decubitus ulcer. He has been seen here several locations due to similar ulcers. Said episode was said to started about 2-3 weeks ago during an period of diarrhea. He is managed by his home health in his to foam applied to the wound daily without significant improvement. He feels well otherwise and denies chills, fever, nausea or vomiting. Progress of Wound: Stable. No new complaints at this time. - Physical Exam Vital Signs Temp Pulse Resp BP 97.8 F 78 16 139/60 H 07/30/17 10:41 07/30/17 10:41 07/30/17 10:41 07/30/17 10:41 General: Alert, Oriented x3, Cooperative, No apparent distress HEENT: Atraumatic Oral: Moist Mucosa Neck: Supple Lungs: Normal air movement Extremities: No cyanosis Skin: Ulcer/ Wound Wound Measurements and Assessment WC - Nurse 1 - General Ulcer Measurement Start: 07/23/17 11:12 Freq: Status: Active Protocol: Activity Type Activity Date Activity User E-Sign Co-Sign Detail Recorded Client Recorded Date Recorded By Document 07/30/17 10:41 [facility] [id number] 07/30/17 11:06 [facility] 07/30/17 10:41 Wound Center Nurse 1 [Ulcer Assessment] #13 Right Buttock -Combined with other wound No -Current Size (cm) - Length 1.1 -Current Size (cm) - Width 0.4 -Current Size (cm) - Depth 0.1 -Total Square Cm 0.44 -Photo Taken No -Epithelialization Small 1-33% -Tunneling No -Undermining/Tunneling No -Circular Undermining No -Exudate Amt Small (1-33%) -Exudate Type Serosanguineous -Wound Margin Distinct, Outline Attached -Granulation Amt Small (1-33%) -Granulation Quality Red -Slough/Fibrin Yes -Necrosis Amt Medium (34-66%) -Necrotic Tissue Type Adherent Slough -Structure Exposed None/Limited to Skin Breakdown -Texture (Rachel-wound Skin Appearance) Scarring -Moisture (Rachel-wound Skin Appearance Assessed ) -Color (Rachel-wound Skin Appearance) Assessed -Temperature (Rachel-wound Skin No Abnormality Appearance) (Pt Warm) -Tenderness on Palpation (Rachel-wound No Skin Appearance) -Ulcer Cleansing Wound Cleanser -Foul Odor after Cleansing No -Anesthetic Used 4% Lidocaine Solution #11 SCROTUM- POSTERIOR -Combined with other wound No -Current Size (cm) - Length 5.8 -Current Size (cm) - Width 3.8 -Current Size (cm) - Depth 0.2 -Total Square Cm 22.04 -Photo Taken No -Epithelialization None Present -Tunneling No -Undermining/Tunneling No -Circular Undermining No -Exudate Amt Small (1-33%) -Exudate Type Serosanguineous -Wound Margin Distinct, Outline Attached -Granulation Amt Large (67-100%) -Granulation Quality [employer] -Slough/Fibrin No -Necrosis Amt Small (1-33%) -Necrotic Tissue Type Adherent Slough -Structure Exposed None/Limited to Skin Breakdown -Texture (Rachel-wound Skin Appearance) Scarring -Moisture (Rachel-wound Skin Appearance Assessed ) -Color (Rachel-wound Skin Appearance) Assessed -Temperature (Rachel-wound Skin No Abnormality Appearance) (Pt Warm) -Tenderness on Palpation (Rachel-wound No Skin Appearance) -Ulcer Cleansing Wound Cleanser -Foul Odor after Cleansing No -Anesthetic Used 4% Lidocaine Solution #10 LEFT LATERAL MALEOLLUS -Combined with other wound No -Current Size (cm) - Length 2.3 -Current Size (cm) - Width 2 -Current Size (cm) - Depth 0.2 -Total Square Cm 4.6 -Photo Taken No -Epithelialization None Present -Tunneling No -Undermining/Tunneling No -Circular Undermining No -Exudate Amt Small (1-33%) -Exudate Type Serosanguineous -Wound Margin Distinct, Outline Attached -Granulation Amt Small (1-33%) -Granulation Quality Red -Slough/Fibrin Yes -Necrosis Amt Large (67-100%) -Necrotic Tissue Type Adherent Slough -Structure Exposed N/A -Texture (Rachel-wound Skin Appearance) Scarring -Moisture (Rachel-wound Skin Appearance Dry/Scaly ) -Color (Rachel-wound Skin Appearance) Erythema -Temperature (Rachel-wound Skin No Abnormality Appearance) (Pt Warm) -Tenderness on Palpation (Rachel-wound No Skin Appearance) -Ulcer Cleansing Rinsed/ Irrigated with Saline -Foul Odor after Cleansing No -Anesthetic Used 4% Lidocaine Solution #9 RACHEL-ANAL -Combined with other wound No -Current Size (cm) - Length 1.8 -Current Size (cm) - Width 2.9 -Current Size (cm) - Depth 0.1 -Total Square Cm 5.22 -Photo Taken No -Epithelialization Small 1-33% -Tunneling No -Undermining/Tunneling No -Circular Undermining No -Exudate Amt Small (1-33%) -Exudate Type Serosanguineous -Wound Margin Distinct, Outline Attached -Granulation Amt Large (67-100%) -Granulation Quality [employer] -Slough/Fibrin Yes -Necrosis Amt Small (1-33%) -Necrotic Tissue Type Adherent Slough -Structure Exposed None/Limited to Skin Breakdown -Texture (Rachel-wound Skin Appearance) Scarring -Moisture (Rachel-wound Skin Appearance Assessed ) -Color (Rachel-wound Skin Appearance) Assessed -Temperature (Rachel-wound Skin No Abnormality Appearance) (Pt Warm) -Tenderness on Palpation (Rachel-wound No Skin Appearance) -Ulcer Cleansing Wound Cleanser -Foul Odor after Cleansing No -Anesthetic Used 4% Lidocaine Solution #8 SACRUM -Combined with other wound No -Current Size (cm) - Length 1.3 -Current Size (cm) - Width 0.8 -Current Size (cm) - Depth 0.3 -Total Square Cm 1.04 -Photo Taken No -Epithelialization None Present -Tunneling No -Undermining/Tunneling No -Circular Undermining No -Exudate Amt Small (1-33%) -Exudate Type Serosanguineous -Wound Margin Distinct, Outline Attached -Granulation Amt Small (1-33%) -Granulation Quality [employer] Red -Slough/Fibrin Yes -Necrosis Amt Large (67-100%) -Necrotic Tissue Type Adherent Slough -Structure Exposed N/A -Texture (Rachel-wound Skin Appearance) Scarring -Moisture (Rachel-wound Skin Appearance Assessed ) -Color (Rachel-wound Skin Appearance) Assessed -Temperature (Rachel-wound Skin No Abnormality Appearance) (Pt Warm) -Tenderness on Palpation (Rachel-wound No Skin Appearance) -Ulcer Cleansing Wound Cleanser -Foul Odor after Cleansing No -Anesthetic Used 4% Lidocaine Solution WC - Nurse 2 - General Ulcer CM Notes Start: 07/23/17 11:12 Freq: Status: Active Protocol: Activity Type Activity Date Activity User E-Sign Co-Sign Detail Recorded Client Recorded Date Recorded By Document 07/30/17 11:18 [id number] 07/30/17 11:33 07/30/17 11:18 Wound Center Nurse 2 [Procedure/Treatment] #13 Right Buttock -Time 11:18 -Correct Patient Yes -Correct Side, Site, Position Yes -Correct Procedure Yes -Procedure Performed Yes -Type of Procedure Debridement -Clinical Debridement Subcutaneous -Post Debridement Size (cm) - Length 0.6 -Post Debridement Size (cm) - Width 0.1 -Post Debridement Size (cm) - Depth 0.1 -Total Square Cm 0.06 -Wound/Ulcer Outcome Not Healed -Ulcer Cleansing Rinsed/ Irrigated with Saline -Foul Odor after Cleansing No -Bioengineered Tissue No -Bleeding Controlled with Pressure -Treatment Response Procedure Tolerated Well #11 SCROTUM- POSTERIOR -Time 11:29 -Correct Patient Yes -Correct Side, Site, Position Yes -Correct Procedure Yes -Procedure Performed Yes -Type of Procedure Debridement -Clinical Debridement Subcutaneous -Post Debridement Size (cm) - Length 6.0 -Post Debridement Size (cm) - Width 3.0 -Post Debridement Size (cm) - Depth 0.1 -Total Square Cm 18.00 -Wound/Ulcer Outcome Not Healed -Ulcer Cleansing Rinsed/ Irrigated with Saline -Foul Odor after Cleansing No -Bioengineered Tissue No -Bleeding Controlled with Pressure -Treatment Response Procedure Tolerated Well #10 LEFT LATERAL MALEOLLUS -Time 11:20 -Correct Patient Yes -Correct Side, Site, Position Yes -Correct Procedure Yes -Procedure Performed Yes -Type of Procedure Debridement -Clinical Debridement Subcutaneous -Post Debridement Size (cm) - Length 2.5 -Post Debridement Size (cm) - Width 2.5 -Post Debridement Size (cm) - Depth 0.1 -Total Square Cm 6.25 -Wound/Ulcer Outcome Not Healed -Ulcer Cleansing Rinsed/ Irrigated with Saline -Foul Odor after Cleansing No -Bioengineered Tissue No -Bleeding Controlled with Pressure -Treatment Response Procedure Tolerated Well #9 RACHEL-ANAL -Time 11:30 -Correct Patient Yes -Correct Side, Site, Position Yes -Correct Procedure Yes -Procedure Performed Yes -Type of Procedure Debridement -Clinical Debridement Subcutaneous -Post Debridement Size (cm) - Length 2.0 -Post Debridement Size (cm) - Width 1.7 -Post Debridement Size (cm) - Depth 0.1 -Total Square Cm 3.40 -Wound/Ulcer Outcome Not Healed -Ulcer Cleansing Rinsed/ Irrigated with Saline -Foul Odor after Cleansing No -Bioengineered Tissue No -Bleeding Controlled with Pressure -Treatment Response Procedure Tolerated Well #8 SACRUM -Time 11:30 -Correct Patient Yes -Correct Side, Site, Position Yes -Correct Procedure Yes -Procedure Performed Yes -Type of Procedure Debridement -Clinical Debridement Subcutaneous -Post Debridement Size (cm) - Length 1.1 -Post Debridement Size (cm) - Width 0.9 -Post Debridement Size (cm) - Depth 0.3 -Total Square Cm 0.99 -Wound/Ulcer Outcome Not Healed -Ulcer Cleansing Rinsed/ Irrigated with Saline -Foul Odor after Cleansing No -Bioengineered Tissue No -Bleeding Controlled with Pressure -Treatment Response Procedure Tolerated Well [See Physician Procedure note for Specifics] Pain Scale: 0-10 Numeric [Pain] -Is Patient Pain Free? Yes Musculoskeletal: No Muscle Wasting Neurological: Cranial nerves II-XII grossly intact Psych/Mental Status: Normal Affect Debridement Note Post-Debridement Measurements/Treatment WC - Nurse 2 - General Ulcer CM Notes Start: 07/23/17 11:12 Freq: Status: Active Protocol: Activity Type Activity Date Activity User E-Sign Co-Sign Detail Recorded Client Recorded Date Recorded By Document 07/23/17 12:03 DV [id number] 07/23/17 12:23 DV Document 07/30/17 11:18 CS [id number] 07/30/17 11:33 CS 07/23/17 07/30/17 12:03 11:18 Wound Center Nurse 2 #13 Right Buttock -Time 12:19 11:18 -Correct Patient Yes Yes -Correct Side, Site, Position Yes Yes -Correct Procedure Yes Yes -Procedure Performed Yes Yes -Type of Procedure Debridement Debridement -Clinical Debridement Subcutaneous Subcutaneous -Post Debridement Size (cm) - Length 1.5 0.6 -Post Debridement Size (cm) - Width 0.6 0.1 -Post Debridement Size (cm) - Depth 0.1 0.1 -Total Square Cm 0.90 0.06 -Wound/Ulcer Outcome Not Healed Not Healed -Ulcer Cleansing Rinsed/ Rinsed/ Irrigated with Irrigated with Saline Saline -Foul Odor after Cleansing No No -Bioengineered Tissue No No -Bleeding Controlled with Pressure Pressure -Treatment Response Procedure Procedure Tolerated Well Tolerated Well #12 Left buttock -Time 12:18 -Correct Patient Yes -Procedure Performed No -Post Debridement Size (cm) - Length 0 -Post Debridement Size (cm) - Width 0 -Post Debridement Size (cm) - Depth 0 -Total Square Cm 0 -Wound/Ulcer Outcome Healed- Epithelialized #11 SCROTUM- POSTERIOR -Time 12:09 11:29 -Correct Patient Yes Yes -Correct Side, Site, Position Yes Yes -Correct Procedure Yes Yes -Procedure Performed Yes Yes -Type of Procedure Debridement Debridement -Clinical Debridement Subcutaneous Subcutaneous -Post Debridement Size (cm) - Length 7.5 6.0 -Post Debridement Size (cm) - Width 2.8 3.0 -Post Debridement Size (cm) - Depth 0.2 0.1 -Total Square Cm 21.00 18.00 -Wound/Ulcer Outcome Not Healed Not Healed -Ulcer Cleansing Rinsed/ Rinsed/ Irrigated with Irrigated with Saline Saline -Foul Odor after Cleansing No -Bioengineered Tissue No -Bleeding Controlled with Pressure Pressure -Treatment Response Procedure Procedure Tolerated Well Tolerated Well #10 LEFT LATERAL MALEOLLUS -Time 12:11 11:20 -Correct Patient Yes Yes -Correct Side, Site, Position Yes Yes -Correct Procedure Yes Yes -Procedure Performed Yes Yes -Type of Procedure Debridement Debridement -Clinical Debridement Subcutaneous Subcutaneous -Post Debridement Size (cm) - Length 2.5 2.5 -Post Debridement Size (cm) - Width 2.1 2.5 -Post Debridement Size (cm) - Depth 0.2 0.1 -Total Square Cm 5.25 6.25 -Wound/Ulcer Outcome Not Healed Not Healed -Ulcer Cleansing Rinsed/ Rinsed/ Irrigated with Irrigated with Saline Saline -Foul Odor after Cleansing No No -Bioengineered Tissue No No -Bleeding Controlled with Pressure Pressure -Treatment Response Procedure Procedure Tolerated Well Tolerated Well #9 RACHEL-ANAL -Time 12:13 11:30 -Correct Patient Yes Yes -Correct Side, Site, Position Yes Yes -Correct Procedure Yes Yes -Procedure Performed Yes Yes -Type of Procedure Debridement Debridement -Clinical Debridement Subcutaneous Subcutaneous -Post Debridement Size (cm) - Length 2.0 2.0 -Post Debridement Size (cm) - Width 2.5 1.7 -Post Debridement Size (cm) - Depth 0.1 0.1 -Total Square Cm 5.00 3.40 -Wound/Ulcer Outcome Not Healed Not Healed -Ulcer Cleansing Rinsed/ Rinsed/ Irrigated with Irrigated with Saline Saline -Foul Odor after Cleansing No No -Bioengineered Tissue No No -Bleeding Controlled with Pressure Pressure -Treatment Response Procedure Procedure Tolerated Well Tolerated Well #8 SACRUM -Time 12:14 11:30 -Correct Patient Yes Yes -Correct Side, Site, Position Yes Yes -Correct Procedure Yes Yes -Procedure Performed Yes Yes -Type of Procedure Debridement Debridement -Clinical Debridement Subcutaneous Subcutaneous -Post Debridement Size (cm) - Length 1.5 1.1 -Post Debridement Size (cm) - Width 1.3 0.9 -Post Debridement Size (cm) - Depth 0.4 0.3 -Total Square Cm 1.95 0.99 -Wound/Ulcer Outcome Not Healed Not Healed -Ulcer Cleansing Rinsed/ Rinsed/ Irrigated with Irrigated with Saline Saline -Foul Odor after Cleansing No No -Bioengineered Tissue No No -Bleeding Controlled with Pressure Pressure -Treatment Response Procedure Procedure Tolerated Well Tolerated Well Pain Scale: 0-10 Numeric Is Patient Pain Free? Yes Yes Wound debrided: Left lateral ankle Wound Grade/Stage: Stage III Type of Debridement: Excisional debridement Anesthesia Used: 4% Lidocaine Solution Depth: Down to and including healthy tissue, in the subcutaneous layer Percentage of wound debrided: 100 Instrument Used: 5mm curette Tissue Removed: SLough and devitalized tissue Severity: Fat Layer Exposed Amount of bleeding with debridement: Mild Bleeding Controlled with: Pressure Patient tolerated procedure well - Additional Wound Wound debrided: Sacral Ulcer Wound Grade/Stage: Stage III Type of Debridement: Excisional debridement Anesthesia Used: 4% Lidocaine Solution Depth: Down to and including healthy tissue, in the subcutaneous layer Percentage of wound debrided: 100 Instrument Used: 5mm curette Tissue Removed: Slough and devitalized tissue Severity: Fat Layer Exposed Amount of bleeding with debridement: Mild Bleeding Controlled with: Pressure Patient tolerated procedure: Patient tolerated procedure well - Additional Wound Wound debrided: Perineal ulcer Wound Grade/Stage: Stage II Type of Debridement: Excisional debridement Anesthesia Used: 4% Lidocaine Solution Depth: Down to and including healthy tissue, in the subcutaneous layer Percentage of wound debrided: 100 Instrument Used: 5mm curette Tissue Removed: Slough adn devitalized tisue Severity: Fat Layer Exposed Amount of bleeding with debridement: Mild Bleeding Controlled with: Pressure - Additional Wound Wound debrided: Left Buttock ( superior ) Wound Grade/Stage: Stage II Type of Debridement: Excisional debridement Anesthesia Used: 4% Lidocaine Solution Depth: Down to and including healthy tissue, in the subcutaneous layer Percentage of wound debrided: 100 Instrument Used: 5mm curette Tissue Removed: slough and devitalized tissue Severity: Fat Layer Exposed Amount of bleeding with debridement: Mild Bleeding Controlled with: Pressure Patient tolerated procedure: Patient tolerated procedure well - Additional Wound Wound debrided: Scrotal ulcer Wound Grade/Stage: Stage III Type of Debridement: Excisional debridement Anesthesia Used: 4% Lidocaine Solution Depth: Down to and including healthy tissue, in the subcutaneous layer Instrument Used: 5mm curette Tissue Removed: Slough and devitalized tissue Severity: Fat Layer Exposed Amount of bleeding with debridement: Mild Bleeding Controlled with: Pressure Patient tolerated procedure: Patient tolerated procedure well Assessment/Plan Active Problems Pressure ulcer of sacral region, stage 3 (Acute) Scrotal ulcer (Acute) 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 Stage III pressure ulcer ( perineal ). Scrotal Ulcer. Left ankle Ulcer. Paraplegia. Type II DM Plan: Decubitus and scrotal ulcers with some improvement however, left ankel ulcer did not show any. Debridement done as documented above. Procedure was well tolerated. Continue Santyl to left ankle ulcers and Callie to all other ulcers. Zinc oxide cream to the periwound area. Left heel with a stage 1 ulcer. Strongly advised on adquate pressure support and off loading. Gel cushions and low loss air mattress. Reposition often. Optimal blood sugar control encouraged. He will be a good candidate for a skin sub considering also his good response in the past however, will hold off until there is no significant risk of infection or contamination. Follow up in 2 weeks. This note was generated with [employer] dictation software. It may contain incorrect words, spelling, and punctuation that were not noted in checking the note before signing.
== END 2017-08-09 23:59 ==
LOC: WC 10:30
PROVIDERS: Family Provider Family Medicine; PCP Family Medicine; Visit Provider Internal Medicine
DX: E11.622 Type 2 diabetes mellitus with other skin ulcer (principal); L89.153 Pressure ulcer of sacral region, stage 3; L89.312 Pressure ulcer of right buttock, stage 2; L89.892 Pressure ulcer of other site, stage 2; L97.322 Non-pressure chronic ulcer of left ankle with fat layer exposed; G82.20 Paraplegia, unspecified; N50.89 Other specified disorders of the male genital organs
CPT/HCPCS: 11042; 11045

== ENCOUNTER 2017-08-21 11:00 | Outpatient (RCR) | payer MEDICARE, SELFPAY ==
[2017-08-10 00:57] VITALS: BP 139/60; PULSE 78; RESP 16; TEMP 36.6
[2017-08-14 11:33] VITALS: BP 155/79; PULSE 84; RESP 16; TEMP 36.5
--- NOTE | 2017-08-14 12:37 | PN.PCM_ITS ---
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 Status: Acute Current Visit: Yes Code(s): L97.322 - Non-pressure chronic ulcer of left ankle with fat layer exposed (2) Pressure ulcer of sacral region, stage 3 Status: Acute Current Visit: Yes Code(s): L89.153 - Pressure ulcer of sacral region, stage 3 (3) Scrotal ulcer Status: Acute Current Visit: Yes Code(s): N50.89 - Other specified disorders of the male genital organs (4) Diabetes mellitus Status: Chronic Current Visit: Yes Qualifiers: Code(s): E11.9 - Type 2 diabetes mellitus without complications (5) Paraplegia Status: Chronic Current Visit: Yes Code(s): G82.20 - Paraplegia, unspecified (6) Pressure ulcer of buttock Status: Resolved Current Visit: Yes (7) Pressure ulcer of perianal region Status: Resolved Current Visit: Yes Code(s): L89.159 - Pressure ulcer of sacral region, unspecified stage Type of Wound Date of Service: 08/14/17 Chief Complaint: Pressure ulcer to the perineal region History of Wound: Mr. Small is a 71yo with past medical history of diabetes mellitus type 2 and paraplegia who presents here with decubitus ulcer. He has been seen here several locations due to similar ulcers. Said episode was said to started about 2-3 weeks ago during an period of diarrhea. He is managed by his home health in his to foam applied to the wound daily without significant improvement. He feels well otherwise and denies chills, fever, nausea or vomiting. Progress of Wound: Stable. No new complaints at this time. - Physical Exam Vital Signs Temp Pulse Resp BP 97.7 F L 84 16 155/79 H 08/14/17 11:33 08/14/17 11:33 08/14/17 11:33 08/14/17 11:33 General: Alert, Oriented x3, Cooperative, No apparent distress HEENT: Atraumatic Oral: Moist Mucosa Neck: Supple Lungs: Normal air movement Abdomen: Non Tender Extremities: No cyanosis Skin: Ulcer/ Wound Wound Measurements and Assessment WC - Nurse 1 - General Ulcer Measurement Start: 08/14/17 11:33 Freq: Status: Active Protocol: Activity Type Activity Date Activity User E-Sign Co-Sign Detail Recorded Client Recorded Date Recorded By Document 08/14/17 11:33 [id number] 08/14/17 11:52 08/14/17 11:33 Wound Center Nurse 1 [Ulcer Assessment] #13 Right Buttock -Combined with other wound No -Current Size (cm) - Length 0 -Current Size (cm) - Width 0 -Current Size (cm) - Depth 0 -Total Square Cm 0 -Photo Taken Yes -Epithelialization Large 67-100% #11 SCROTUM- POSTERIOR -Combined with other wound No -Current Size (cm) - Length 1.5 -Current Size (cm) - Width 4.5 -Current Size (cm) - Depth 0.1 -Total Square Cm 6.75 -Photo Taken No -Epithelialization Small 1-33% -Tunneling No -Undermining/Tunneling No -Circular Undermining No -Exudate Amt Small (1-33%) -Exudate Type Serosanguineous -Wound Margin Flat & Intact -Granulation Amt Medium (34-66%) -Granulation Quality Red -Slough/Fibrin Yes -Necrosis Amt Large (67-100%) -Necrotic Tissue Type Adherent Slough -Structure Exposed N/A -Texture (Rachel-wound Skin Appearance) Assessed Scarring -Moisture (Rachel-wound Skin Appearance Assessed ) Dry/Scaly -Color (Rachel-wound Skin Appearance) Assessed -Temperature (Rachel-wound Skin No Abnormality Appearance) (Pt Warm) -Tenderness on Palpation (Rachel-wound No Skin Appearance) -Ulcer Cleansing Rinsed/ Irrigated with Saline -Foul Odor after Cleansing No -Anesthetic Used 5% Lidocaine Gel #10 LEFT LATERAL MALEOLLUS -Combined with other wound No -Current Size (cm) - Length 2.2 -Current Size (cm) - Width 2.0 -Current Size (cm) - Depth 0.2 -Total Square Cm 4.40 -Photo Taken No -Epithelialization Small 1-33% -Tunneling No -Undermining/Tunneling No -Circular Undermining No -Exudate Amt Small (1-33%) -Exudate Type Serosanguineous -Wound Margin Flat & Intact -Granulation Amt Small (1-33%) -Granulation Quality Red -Slough/Fibrin Yes -Necrosis Amt Large (67-100%) -Necrotic Tissue Type Adherent Slough -Structure Exposed N/A -Texture (Rachel-wound Skin Appearance) Assessed -Moisture (Rachel-wound Skin Appearance Assessed ) Dry/Scaly -Color (Rachel-wound Skin Appearance) Assessed -Temperature (Rachel-wound Skin No Abnormality Appearance) (Pt Warm) -Tenderness on Palpation (Rachel-wound No Skin Appearance) -Ulcer Cleansing Wound Cleanser -Foul Odor after Cleansing No -Anesthetic Used 5% Lidocaine Gel #9 RACHEL-ANAL -Combined with other wound No -Current Size (cm) - Length 1.0 -Current Size (cm) - Width 1.8 -Current Size (cm) - Depth 0.1 -Total Square Cm 1.80 -Photo Taken No -Epithelialization Medium 34-66% -Tunneling No -Undermining/Tunneling No -Circular Undermining No -Exudate Amt Small (1-33%) -Exudate Type Serosanguineous -Wound Margin Flat & Intact -Granulation Amt Medium (34-66%) -Granulation Quality [place] -Slough/Fibrin Yes -Necrosis Amt Small (1-33%) -Necrotic Tissue Type Adherent Slough -Structure Exposed N/A -Texture (Rachel-wound Skin Appearance) Assessed Scarring -Moisture (Rachel-wound Skin Appearance Assessed ) Dry/Scaly -Color (Rachel-wound Skin Appearance) Assessed -Temperature (Rachel-wound Skin No Abnormality Appearance) (Pt Warm) -Tenderness on Palpation (Rachel-wound No Skin Appearance) -Ulcer Cleansing Wound Cleanser -Foul Odor after Cleansing No -Anesthetic Used 5% Lidocaine Gel #8 SACRUM -Combined with other wound No -Current Size (cm) - Length 1.0 -Current Size (cm) - Width 0.8 -Current Size (cm) - Depth 0.2 -Total Square Cm 0.80 -Photo Taken No -Epithelialization Small 1-33% -Tunneling No -Undermining/Tunneling No -Circular Undermining No -Exudate Amt Small (1-33%) -Exudate Type Serosanguineous -Wound Margin Flat & Intact -Granulation Amt Medium (34-66%) -Granulation Quality Red -Slough/Fibrin Yes -Necrosis Amt Medium (34-66%) -Necrotic Tissue Type Adherent Slough -Structure Exposed N/A -Texture (Rachel-wound Skin Appearance) Assessed Scarring -Moisture (Rachel-wound Skin Appearance Assessed ) Dry/Scaly -Color (Rachel-wound Skin Appearance) Assessed -Temperature (Rachel-wound Skin No Abnormality Appearance) (Pt Warm) -Tenderness on Palpation (Rachel-wound No Skin Appearance) -Ulcer Cleansing Wound Cleanser -Foul Odor after Cleansing No -Anesthetic Used 5% Lidocaine Gel [Edema Assessment] -Lower Limb Edema Present NA WC - Nurse 2 - General Ulcer CM Notes Start: 08/14/17 11:33 Freq: Status: Active Protocol: Activity Type Activity Date Activity User E-Sign Co-Sign Detail Recorded Client Recorded Date Recorded By Document 08/14/17 12:20 JARRED [id number] 08/14/17 12:26 JARRED 08/14/17 12:20 Wound Center Nurse 2 [Procedure/Treatment] #13 Right Buttock -Time 12:20 -Correct Patient Yes -Correct Side, Site, Position Yes -Correct Procedure Yes -Procedure Performed No -Post Debridement Size (cm) - Length 0 -Post Debridement Size (cm) - Width 0 -Post Debridement Size (cm) - Depth 0 -Total Square Cm 0 -Wound/Ulcer Outcome Healed- Epithelialized #11 SCROTUM- POSTERIOR -Time 12:22 -Correct Patient Yes -Correct Side, Site, Position Yes -Correct Procedure Yes -Procedure Performed Yes -Type of Procedure Debridement -Clinical Debridement Subcutaneous -Post Debridement Size (cm) - Length 5.5 -Post Debridement Size (cm) - Width 2.3 -Post Debridement Size (cm) - Depth 0.1 -Total Square Cm 12.65 -Wound/Ulcer Outcome Not Healed -Ulcer Cleansing Rinsed/ Irrigated with Saline -Foul Odor after Cleansing No -Bioengineered Tissue No -Bleeding Controlled with NA -Treatment Response Procedure Tolerated Well #10 LEFT LATERAL MALEOLLUS -Time 12:23 -Correct Patient Yes -Correct Side, Site, Position Yes -Correct Procedure Yes -Procedure Performed Yes -Type of Procedure Debridement -Clinical Debridement Subcutaneous -Post Debridement Size (cm) - Length 1.8 -Post Debridement Size (cm) - Width 1.8 -Post Debridement Size (cm) - Depth 0.3 -Total Square Cm 3.24 -Wound/Ulcer Outcome Not Healed -Ulcer Cleansing Rinsed/ Irrigated with Saline -Foul Odor after Cleansing No -Bioengineered Tissue No -Bleeding Controlled with NA -Treatment Response Procedure Tolerated Well #9 RACHEL-ANAL -Time 12:24 -Correct Patient Yes -Correct Side, Site, Position Yes -Correct Procedure Yes -Procedure Performed Yes -Type of Procedure Debridement -Clinical Debridement Subcutaneous -Post Debridement Size (cm) - Length 1.0 -Post Debridement Size (cm) - Width 2.5 -Post Debridement Size (cm) - Depth 0.1 -Total Square Cm 2.50 -Wound/Ulcer Outcome Not Healed -Ulcer Cleansing Rinsed/ Irrigated with Saline -Foul Odor after Cleansing No -Bioengineered Tissue No -Bleeding Controlled with NA -Treatment Response Procedure Tolerated Well #8 SACRUM -Time 12:25 -Correct Patient Yes -Correct Side, Site, Position Yes -Correct Procedure Yes -Procedure Performed Yes -Type of Procedure Debridement -Clinical Debridement Subcutaneous -Post Debridement Size (cm) - Length 0.7 -Post Debridement Size (cm) - Width 0.6 -Post Debridement Size (cm) - Depth 0.1 -Total Square Cm 0.42 -Wound/Ulcer Outcome Not Healed -Ulcer Cleansing Rinsed/ Irrigated with Saline -Foul Odor after Cleansing No -Bioengineered Tissue No -Bleeding Controlled with NA -Treatment Response Procedure Tolerated Well [See Physician Procedure note for Specifics] Neurological: Cranial nerves II-XII grossly intact Psych/Mental Status: Normal Affect Debridement Note Post-Debridement Measurements/Treatment WC - Nurse 2 - General Ulcer CM Notes Start: 08/14/17 11:33 Freq: Status: Active Protocol: Activity Type Activity Date Activity User E-Sign Co-Sign Detail Recorded Client Recorded Date Recorded By Document 08/14/17 12:20 JARRED [id number] 08/14/17 12:26 JARRED 08/14/17 12:20 Wound Center Nurse 2 #13 Right Buttock -Time 12:20 -Correct Patient Yes -Correct Side, Site, Position Yes -Correct Procedure Yes -Procedure Performed No -Post Debridement Size (cm) - Length 0 -Post Debridement Size (cm) - Width 0 -Post Debridement Size (cm) - Depth 0 -Total Square Cm 0 -Wound/Ulcer Outcome Healed- Epithelialized #11 SCROTUM- POSTERIOR -Time 12:22 -Correct Patient Yes -Correct Side, Site, Position Yes -Correct Procedure Yes -Procedure Performed Yes -Type of Procedure Debridement -Clinical Debridement Subcutaneous -Post Debridement Size (cm) - Length 5.5 -Post Debridement Size (cm) - Width 2.3 -Post Debridement Size (cm) - Depth 0.1 -Total Square Cm 12.65 -Wound/Ulcer Outcome Not Healed -Ulcer Cleansing Rinsed/ Irrigated with Saline -Foul Odor after Cleansing No -Bioengineered Tissue No -Bleeding Controlled with NA -Treatment Response Procedure Tolerated Well #10 LEFT LATERAL MALEOLLUS -Time 12:23 -Correct Patient Yes -Correct Side, Site, Position Yes -Correct Procedure Yes -Procedure Performed Yes -Type of Procedure Debridement -Clinical Debridement Subcutaneous -Post Debridement Size (cm) - Length 1.8 -Post Debridement Size (cm) - Width 1.8 -Post Debridement Size (cm) - Depth 0.3 -Total Square Cm 3.24 -Wound/Ulcer Outcome Not Healed -Ulcer Cleansing Rinsed/ Irrigated with Saline -Foul Odor after Cleansing No -Bioengineered Tissue No -Bleeding Controlled with NA -Treatment Response Procedure Tolerated Well #9 RACHEL-ANAL -Time 12:24 -Correct Patient Yes -Correct Side, Site, Position Yes -Correct Procedure Yes -Procedure Performed Yes -Type of Procedure Debridement -Clinical Debridement Subcutaneous -Post Debridement Size (cm) - Length 1.0 -Post Debridement Size (cm) - Width 2.5 -Post Debridement Size (cm) - Depth 0.1 -Total Square Cm 2.50 -Wound/Ulcer Outcome Not Healed -Ulcer Cleansing Rinsed/ Irrigated with Saline -Foul Odor after Cleansing No -Bioengineered Tissue No -Bleeding Controlled with NA -Treatment Response Procedure Tolerated Well #8 SACRUM -Time 12:25 -Correct Patient Yes -Correct Side, Site, Position Yes -Correct Procedure Yes -Procedure Performed Yes -Type of Procedure Debridement -Clinical Debridement Subcutaneous -Post Debridement Size (cm) - Length 0.7 -Post Debridement Size (cm) - Width 0.6 -Post Debridement Size (cm) - Depth 0.1 -Total Square Cm 0.42 -Wound/Ulcer Outcome Not Healed -Ulcer Cleansing Rinsed/ Irrigated with Saline -Foul Odor after Cleansing No -Bioengineered Tissue No -Bleeding Controlled with NA -Treatment Response Procedure Tolerated Well Wound debrided: Coccygeal Wound Grade/Stage: Stage III Type of Debridement: Excisional debridement Anesthesia Used: 4% Lidocaine Solution Depth: Down to and including healthy tissue, in the subcutaneous layer Percentage of wound debrided: 100 Instrument Used: 5mm curette Tissue Removed: Slough and devitalized tissue Severity: Fat Layer Exposed Amount of bleeding with debridement: Mild Bleeding Controlled with: Pressure Patient tolerated procedure well - Additional Wound Wound debrided: Perineal Wound Grade/Stage: Stage II Type of Debridement: Excisional debridement Anesthesia Used: 4% Lidocaine Solution Depth: Down to and including healthy tissue, in the subcutaneous layer Percentage of wound debrided: 100 Instrument Used: 5mm curette Tissue Removed: Slough and devitalized tissue Severity: Fat Layer Exposed Amount of bleeding with debridement: Mild Bleeding Controlled with: Pressure Patient tolerated procedure: Patient tolerated procedure well - Additional Wound Wound debrided: Scrotal ulcer Wound Grade/Stage: Stage III Type of Debridement: Excisional debridement Anesthesia Used: 4% Lidocaine Solution Depth: Down to and including healthy tissue, in the subcutaneous layer Percentage of wound debrided: 100 Instrument Used: 5mm curette Tissue Removed: Slough and devitalized tissue Severity: Fat Layer Exposed Amount of bleeding with debridement: Mild Bleeding Controlled with: Pressure Patient tolerated procedure: Patient tolerated procedure well - Additional Wound Wound debrided: Left ankle. 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 Stage III pressure ulcer ( perineal ). Scrotal Ulcer. Left ankle Ulcer. Paraplegia. Type II DM Plan: Stable ulcers. No new complaints at this time. Debridement done as documented above. Procedure was well tolerated. Continue Santyl to left ankle ulcers and Callie to all other ulcers. Zinc oxide cream to the periwound area. Continue adquate pressure support and off loading of left heel. Gel cushions and low loss air mattress. Reposition often. Optimal blood sugar control encouraged. He will be a good candidate for a skin sub considering also his good response in the past. Follow up in 1 week. This note was generated with [employer] software. It may contain incorrect words, spelling, and punctuation that were not noted in checking the note before signing.
== END 2017-09-09 23:59 ==
LOC: WC 11:00
PROVIDERS: Family Provider Family Medicine; PCP Family Medicine; Visit Provider Internal Medicine
DX: E11.622 Type 2 diabetes mellitus with other skin ulcer (principal); G82.20 Paraplegia, unspecified; L89.153 Pressure ulcer of sacral region, stage 3; L89.893 Pressure ulcer of other site, stage 3; L97.322 Non-pressure chronic ulcer of left ankle with fat layer exposed; N50.89 Other specified disorders of the male genital organs
CPT/HCPCS: 11042

== ENCOUNTER 2017-08-21 11:01 | Inpatient (IN) | payer MEDICARE, SELFPAY ==
[2017-08-21] VITALS (22 sets, daily range): BP systolic 69–126; BP diastolic 40–90; PULSE 83–125; RESP 12–86; TEMP 36.8; O2SAT 95–100; BMI 22.6; BMI 22.7
--- NOTE | 2017-08-21 11:22 | CT_ITS ---
STUDY: CT ABDOMEN AND PELVIS WITHOUT CONTRAST REASON FOR EXAM: Male, 71 years old. Abdominal distention. RADIATION DOSAGE (If Supplied By Facility): CTDIvol = ( 16.93 ) mGy, DLP = ( 917.80 ) mGycm TECHNIQUE: Transaxial images were obtained from the dome of the diaphragm to the symphysis pubis without oral contrast, and without intravenous contrast. Sagittal and coronal images were reconstructed. Individualized dose optimization techniques were used for this CT. COMPARISON: November 25, 2016 FINDINGS: The visualized lung bases are unremarkable. The visualized portions of the heart are within normal limits. Normal liver. There are gallstones within a contracted gallbladder. Normal spleen. Normal pancreas. Normal bilateral adrenal glands. Normal right kidney. There is significant stable left renal atrophy. There is stable left-sided hydroureteronephrosis. There are stable left renal cysts present as well. Normal visualized stomach. Normal small intestine. There is a large amount of stool within the descending and sigmoid colon as well as within the rectum. There is non-visualization of the appendix. There is diffuse atherosclerotic calcification of the abdominal aorta, without a demonstrated aneurysm. Normal inferior vena cava. Normal retroperitoneum. The urinary bladder is not visualized. There are surgical clips within the pelvis. There is an ostomy within the lower abdomen right of midline. The bones are diffusely demineralized. There are degenerative changes of the lumbar spine. There is soft tissue fullness dorsal to the coccyx which is stable.. CT/Abdomen/Pelvis without Cont IMPRESSION: Large amount of stool throughout the descending and sigmoid colon as well as the rectum. Stable left-sided hydronephrosis associated with stable renal atrophy. Atherosclerosis. Cholelithiasis. Electronically Signed: Mimi Romero MD at 12:16 EDT Tel , Service support ,
--- NOTE | 2017-08-21 11:26 | ED.VISSUMM ---
- ER Visit Summary Date of Service: 08/21/17 Chief Complaint: Abdominal pain History of Present Illness: The patient is a 71 M who is a paraplegic status post trauma in the right leg amputee presents with abdominal pain and nausea. He has had some chronic diarrhea over the past few months but the pain started yesterday, his abdomen has distended more. No fever or chills. He has an ileostomy in his urine output has been similar. Most of his pain is diffusely throughout the abdomen, it is crampy. Physical Examination: Patient does appear in distress. He is tachycardic. His heart and lungs are clear. He has abdominal distention, decreased bowel sounds and diffuse tenderness without any guarding or rebound. Ileostomy site is clean dry and intact. Emergency Department Course and Treatment: Patient is found to have constipation on his CT, he also has a urinary tract infection. He is quite in a lot of pain requiring multiple doses of opiate analgesics, he has gluteal ulcers which do not appear infected but I am worried about them getting infected especially with the amount of diarrhea, the diarrhea is likely secondary to the constipation and the only stool but is able to come out. He will need treatment but he lives by himself and is quite weak and cannot care for himself. I will admit him for further workup. Antibiotics were given for the urinary tract infection Disposition: Admit to the hospital in stable condition Impression: Constipation Gluteal ulcer Urinary tract infection This note was generated with [employer] dictation software. It may contain incorrect words, spelling, and punctuation that were not noted in review of the chart prior to signing ED Disposition - Plan for ED Patient: Chief Complaint: Abd Pain Referrals: Angelina Caceres DO [Primary Care Provider] -
--- NOTE | 2017-08-21 11:30 | ED.RN ---
LACTIC 3.3 PER LAB, RN AND MD NOTIFIED
[2017-08-21] MEDS: 0.9% Normal Saline 1,000 ML 1000 ML IV (11:36)
[2017-08-21] MEDS: Morphine 4 MG/ML Syringe IV (11:37)
[2017-08-21] MEDS: Ondansetron 4 MG/2 ML Vial IV ×4 (11:38→23:54)
[2017-08-21 11:55] LABS: Mucous, Urine 0 SEEN /hpf (<or=2+)
[2017-08-21 11:58] LABS: Color, Urine Yellow (Yellow); Glucose, Dipstick Normal (Normal); Ketone-Dipstick 5 mg/dl (Negative); Leukocyte Esterase-Dipstick 500 /ul (Negative); Nitrite-Dipstick Negative (Negative); Occult Blood-Urine 50 /ul (Negative); Protein-Dipstick 30 mg/dl (Negative); Urine Bilirubin Dipstick 1 mg/dL (Negative); Urine Clarity Sl. Cloudy (Clear); Urine Urobilinogen 4 mg/dl (Normal); Urine pH 6.5 (5.0 - 8.0)
[2017-08-21 12:04] LABS: Bacteria 2+ /hpf (None Seen); Red Blood Cells-Urine 0-5 SEEN /hpf (0-5); Squamous Epithelial Cells - UA 0-5 SEEN /hpf (0-5); White Blood Cells 25-50 SEEN /hpf (0-5)
[2017-08-21 12:06] LABS: ALB/GLOB Ratio 0.7 RATIO (0.9-2.4); AST(SGOT) 9 U/L (15-37); Alanine Aminotransfer ALT/SGPT 18 U/L (16-61); Albumin, Serum 2.5 g/dL (3.2-5.0); Alkaline Phosphatase 140 U/L (45-117); Anion Gap 13 (5-15); BUN 32 mg/dL (7-18); BUN/Creat Ratio 32.6 RATIO (10-20); Calcium,Total 7.8 mg/dL (8.5-10.1); Chloride 107 mmol/L (98-107); Creatinine, Serum 0.98 mg/dL (0.70-1.30); EST Glomerular Filtration Rate 79 mL/min (>60); Est Glom Filt Rate - Afr Amer 96 mL/min (>60); Estimated Creatinine Clearance 68.05 ml/min; Globulin 3.8 g/dL (2.2-4.2); Glucose 254 mg/dL (74-106); Lipase 82 U/L (73-393); Potassium 4.9 mmol/L (3.5-5.1); Protein, Total 6.3 g/dL (6.4-8.2); Sodium Level 139 mmol/L (136-145)
[2017-08-21 12:15] LABS: Lactic Acid 3.3 mmol/L (0.4-2.0)
[2017-08-21] MEDS: HYDROmorphone 1 MG/ML Syringe IV (13:05)
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
[2017-08-21] MEDS: 0.9% Normal Saline 1,000 ML 999 ML IV ×2 (14:23→18:30)
[2017-08-21] MEDS: 0.9% Normal Saline 1,000 ML 75 ML IV (15:20)
[2017-08-21 15:35] LABS: Reflex Lactate? Y
--- NOTE | 2017-08-21 15:49 | NURSING ---
wound photo: left heel
--- NOTE | 2017-08-21 15:50 | NURSING ---
wound photo: left lateral malleolus
--- NOTE | 2017-08-21 15:51 | NURSING ---
wound photo: francesco-anal
--- NOTE | 2017-08-21 15:51 | NURSING ---
wound photo: scrotum
--- NOTE | 2017-08-21 15:52 | NURSING ---
wound photo: sacrum
--- NOTE | 2017-08-21 16:07 | PCA ---
Placed call to [employer] regarding pt low air loss mattress, spoke with Caty who placed the call out for deliver. Confirmation number [id number]
[2017-08-21] MEDS: Ibuprofen 600 MG Tablet PO (17:46)
[2017-08-21] MEDS: Dicyclomine 10 MG Capsule PO (17:47)
[2017-08-21] MEDS: Sucralfate 1 GM Tablet PO (17:48)
--- NOTE | 2017-08-21 17:48 | PCA ---
[employer] inventory representative here to deliver pt mattress.
[2017-08-21 18:15] LABS: Bedside Glucose 129 mg/dL (70-110)
--- NOTE | 2017-08-21 18:20 | PCM.PN.BLA ---
Progress Note Lactic acid of 3.3 noted. Continue ceftriaxone for complicated cystitis IV fluid bolus and maintenance IV fluids. Urine culture and blood culture pending.
[2017-08-21 18:23] LABS: Lactic Acid 7.5 mmol/L (0.4-2.0)
--- NOTE | 2017-08-21 20:00 | NURSING ---
Patient's b/p returned to being low and repeat lactic acid was >7. Doctor notified by YOVANY Travis and ordered for patient to be sent to ICU. YOVANY Travis called report and patient was transported by Thaddeus and this RN to ICU directly. Patient's family with him- notified them of same prior to transport.
--- NOTE | 2017-08-21 20:02 | PCM.RX.CS ---
Consult Pharmacy has been consulted to manage selected antiobiotic: Vancomycin Type of Consult: New start Suspected Infection: Skin/Soft tissue Prior Doses of Antibiotics Received/Current Regimen: MEROPENEM 1GM Q8H METRONIDAZOLE 500MG Q8H Labs: Sodium 139 mmol/L (136-145) 08/21/17 11:30 Potassium 4.9 mmol/L (3.5-5.1) 08/21/17 11:30 Chloride 107 mmol/L (98-107) 08/21/17 11:30 Carbon Dioxide 19.0 mmol/L (21.0-32.0) L 08/21/17 11:30 Anion Gap 13 (5-15) 08/21/17 11:30 BUN 32 mg/dL (7-18) H 08/21/17 11:30 Creatinine 0.98 mg/dL (0.70-1.30) 08/21/17 11:30 Est GFR (MDRD) Af Amer 96 mL/min (>60) 08/21/17 11:30 Est GFR (MDRD) Non-Af 79 mL/min (>60) 08/21/17 11:30 BUN/Creatinine Ratio 32.6 RATIO (10-20) H 08/21/17 11:30 Glucose 254 mg/dL (74-106) H 08/21/17 11:30 Weight used for dosin lb 13.616 oz Estimated Creatinine Clearance: 68 ML/MIN Goal Trough: 10-15 mcg/mL Pharmacy Plan for Drug Dosing: Pharmacy Service will continue to monitor and adjust dosing as required. Follow-Up Labs: Trough Vancomycin Labs to be done on [date and time ordered]: 08/23 0900
[2017-08-21 20:09] LABS: Absolute Lymphocyte Count 0.74 X10^3/ul (0.83-4.51); Absolute Neutrophil Count 8.2 X10^3/uL (2.0-7.7); Basophil# 0.01 X10^3/uL; Basophil% 0.1 % (0-1); Eosinophil# 0.03 X10^3/uL; Eosinophils% 0.3 % (0-5); Hematocrit 35.5 % (40-54); Hemoglobin 10.3 g/dl (13.0-16.5); Lymphocyte # 0.74 X10^3/ul (4.0); Lymphocyte % 7.6 % (19-41); Mean Corpuscular Hgb 26.3 pg (27.0-32.0); Mean Corpuscular Volume 90.8 fL (80-94); Mean Platelet Vol. 9.5 fl (6.2-12.0); Monocyte# 0.67 X10^3/uL; Monocyte% 6.9 % (0-10); Neutrophil # 8.21 X10^3/uL (2.7-7.7); Neutrophil % 84.9 % (47-70); Platelet Count 205 K/mm3 (150-450); RBC Distribution Width CV 15.8 % (11.6-14.6); RBC Distribution Width SD 52.1 fl (35.1-43.9); Red Blood Count 3.91 M/mm3 (4.6-6.2); White Blood Count 9.7 K/mm3 (4.4-11.0)
[2017-08-21 20:12] LABS: POSITIVE COUNT NO; POSITIVE DIFFERENTIAL NO; POSITIVE MORPHOLOGY NO
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
--- NOTE | 2017-08-21 20:38 | PCM.OPRPT ---
Problem List (1) Abdominal pain Status: Acute Qualifiers: Abdominal location: right lower quadrant Qualified Code(s): R10.31 - Right lower quadrant pain (2) Septic shock Status: Acute Report of Operation Date of Procedure: 08/21/17 Pre-Operative Diagnosis: Need for central venous access for pressor support Post-Operative Diagnosis: Same Surgery/Procedure Performed:: Right IJ ultrasound-guided central line placement Description of Procedure: After informed consent was obtained the patient was placed in Trendelenburg position and his head was facing left. The right neck was prepped and draped in the usual sterile fashion. Ultrasound was used to localize the right internal jugular vein. Next using a 16-gauge needle the right IJ was punctured and dark venous blood was aspirated. A guidewire was placed through this without resistance. Next an 11 blade scalpel was used to make a small tatum over the needle and the needle was removed. A dilator was placed over the guidewire and then removed. The central line was then placed over the guidewire and the guidewire was removed. A cap was placed over this port on the central line and blood was drawn back. The blood was nonpulsatile and dark. Next all 3 ports were tested and blood drawn back and flushed with saline. The central line was then sutured to the skin with 3-0 silk suture provided in the kit. A chlorhexidine dressing was then applied. Chest x-ray will be obtained. The patient tolerated the procedure well. Grafts/Implants Used: Triple-lumen central line
--- NOTE | 2017-08-21 20:45 | RAD_ITS ---
STUDY: X-RAY CHEST REASON FOR EXAM: Male, 71 years old. Central line placement TECHNIQUE: Single AP portable view of the chest. COMPARISON: 11/20/2016 FINDINGS: Right IJ central venous catheter with tip in the mid SVC. No pneumothorax The lungs are clear and expanded. There is no demonstrated pleural abnormality. Normal size heart. Normal mediastinum and galdino. Normal visualized pulmonary arteries. Normal visualized aortic arch and descending thoracic aorta. Normal visualized thoracic spine. Normal visualized ribs, clavicles, and shoulders. There is no demonstrated abnormality of the visualized soft tissue structures of the upper abdomen. RAD/CXR for Line Placement IMPRESSION: No acute finding Electronically Signed: Barber Gupta DO at 21:01 EDT Tel , Service support ,
[2017-08-21] MEDS: Vancomycin IV 1,000 MG/200 ML BAG 200 MG IV (21:30)
[2017-08-21] MEDS: Menthol/Lanolin/Calamine/Znox 113 GM Tube 1 APPLIC TOPICAL (21:33)
--- NOTE | 2017-08-21 23:07 | PCM.PN.BLA ---
Progress Note Septic Shock follow up Note: Patient continues to have hypotension with systolic blood pressure in the 70s-80s and map in 50s. Patient was transferred to the ICU. Lactic acid increased from 3.3 to 7.8. The patient is alert and oriented S1, S2 present. No murmur, gallops or rubs. Lungs are clear to auscultate Abdomen nondistended, tender at left lower quadrants. Assessment and plan Septic shock Likely etiology of his septic shock is not clear at this time. Differential diagnoses include septic shock due to complicated cystitis, wound infection, C-diff, bacteremia or other. Patient was was evaluated by surgery due to his abdominal pain. However patient has no abdominal distention and his abdomen is soft at this time. Indeed he had multiple large stools. Presently patient is not a surgical candidate at this time. However we will keep patient n.p.o. for now. Patient has received 30 mL's per kilogram of IV fluids per septic protocol The patient is started on broad-spectrum antibiotics: vancomycin, meropenem and Flagyl. Levophed started. Repeat lactate until less than 2. Blood cultures are pending C. difficile test ordered Wound cultures ordered [employer] consult.
--- NOTE | 2017-08-21 23:18 | PN_ITS ---
Progress Note Septic Shock follow up Note: Patient continues to have hypotension with systolic blood pressure in the 70s- 80s and map in 50s. Patient was transferred to the ICU. Lactic acid increased from 3.3 to 7.8. The patient is alert and oriented S1, S2 present. No murmur, gallops or rubs. Lungs are clear to auscultate Abdomen nondistended, tender at left lower quadrants. Assessment and plan Septic shock Likely etiology of his septic shock is not clear at this time. Differential diagnoses include septic shock due to complicated cystitis, wound infection, C-diff, bacteremia or other. Patient was was evaluated by surgery due to his abdominal pain. However patient has no abdominal distention and his abdomen is soft at this time. Indeed he had multiple large stools. Presently patient is not a surgical candidate at this time. However we will keep patient n.p.o. for now. Patient has received 30 mL's per kilogram of IV fluids per septic protocol The patient is started on broad-spectrum antibiotics: vancomycin, meropenem and Flagyl. Levophed started. Repeat lactate until less than 2. Blood cultures are pending C. difficile test ordered Wound cultures ordered Lean Manager consult.
[2017-08-22] VITALS (70 sets, daily range): BP systolic 70–143; BP diastolic 37–97; PULSE 103–123; RESP 15–25; TEMP 36.3–36.9; O2SAT 97–100
[2017-08-22 00:02] LABS: International Normalized Ratio 1.8; Partial Thromboplast Time 34.3 Seconds (24.1-36.2); Prothrombin Time (Protime)PT. 20.5 SECONDS (11.7-14.9)
[2017-08-22 00:06] LABS: Bedside Glucose 125 mg/dL (70-110)
[2017-08-22 00:35] LABS: M R Staph aureus DNA By PCR POSITIVE (Negative); Probe Check PASS
[2017-08-22 00:48] LABS: Lactic Acid 8.3 mmol/L (0.4-2.0)
[2017-08-22 04:06] LABS: Reflex Lactate? Y
[2017-08-22 04:37] LABS: Absolute Lymphocyte Count 1.21 X10^3/ul (0.83-4.51); Absolute Neutrophil Count 12.9 X10^3/uL (2.0-7.7); Basophil# 0.01 X10^3/uL; Basophil% 0.1 % (0-1); Hemoglobin 10.9 g/dl (13.0-16.5); Lymphocyte # 1.21 X10^3/ul (4.0); Lymphocyte % 7.9 % (19-41); Mean Corp Hgb Conc 29.5 g/gl (32-36); Mean Corpuscular Hgb 26.8 pg (27.0-32.0); Mean Corpuscular Volume 90.9 fL (80-94); Mean Platelet Vol. 9.5 fl (6.2-12.0); Monocyte# 1.18 X10^3/uL; Monocyte% 7.7 % (0-10); Neutrophil # 12.89 X10^3/uL (2.7-7.7); Neutrophil % 84.1 % (47-70); Platelet Count 290 K/mm3 (150-450); RBC Distribution Width CV 15.8 % (11.6-14.6); RBC Distribution Width SD 52.8 fl (35.1-43.9); Red Blood Count 4.07 M/mm3 (4.6-6.2); White Blood Count 15.3 K/mm3 (4.4-11.0)
[2017-08-22 04:40] LABS: Differential Indicated SCAN CRITERIA MET; POSITIVE COUNT NO; POSITIVE DIFFERENTIAL NO; POSITIVE MORPHOLOGY YES
[2017-08-22 04:45] LABS: Anion Gap 22 (5-15); BUN 41 mg/dL (7-18); BUN/Creat Ratio 29.3 RATIO (10-20); Calcium,Total 6.3 mg/dL (8.5-10.1); Chloride 114 mmol/L (98-107); EST Glomerular Filtration Rate 53 mL/min (>60); Est Glom Filt Rate - Afr Amer 64 mL/min (>60); Estimated Creatinine Clearance 47.59 ml/min; Glucose 157 mg/dL (74-106); Potassium 5.5 mmol/L (3.5-5.1); Sodium Level 144 mmol/L (136-145)
[2017-08-22 04:47] LABS: Lactic Acid 6.5 mmol/L (0.4-2.0)
[2017-08-22 04:52] LABS: Differential Comment SCANNED
--- NOTE | 2017-08-22 05:24 | PCA ---
Patients weight is off this a.m. patient is now on a speciality bed. new weight not obtained after placed on new bed.
[2017-08-22 05:31] LABS: Bedside Glucose 137 mg/dL (70-110)
[2017-08-22] MEDS: CHLORHEXIDINE GLUC 2% CLOTH 1 EACH TOWELETTE TOPICAL (06:07)
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
[2017-08-22 07:51] LABS: Allen Test POS; Base Excess -25 mmol/L (-2 to +2); Blood Gas Specimen Type ART; O2 Delivery Device Room Air; PO2 115 mmHG (75-100); SITE R Radial; SO2 97 % (95-99); Time Given 634; Total Carbon Dioxide < 5 mmol/L; pCO2 11.8 mmHg (35-45); pH 7.14 (7.35-7.45)
[2017-08-22 07:56] LABS: Reflex Lactate? Y
--- NOTE | 2017-08-22 07:58 | PCM.PN.SRG ---
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 He had another large bowel movement overnight. He is having no nausea or vomiting. He does say he is having some chills. - Physical Exam General: Alert, Oriented x3, Cooperative HEENT: Atraumatic Neck: No JVD Lungs: Normal air movement Cardiovascular: Regular rate, Regular Rhythm Abdomen: Soft, Non Tender, Non-Distended, - - Stoma is pink with urine output. Skin: No rashes Neurological: Cranial nerves II-XII grossly intact Psych/Mental Status: Normal Affect Vital Signs Temp Pulse Resp BP Pulse Ox 97.9 F 111 H 17 143/55 H 100 08/22/17 04:00 08/22/17 07:00 08/22/17 07:00 08/22/17 07:15 08/22/17 07:00 Oxygen Delivery Method Room Air Weight: 207 lb 0.225 oz Body Mass Index (BMI) 22.6 Intake and Output for Last 24 Hours 08/20/17 08/21/17 08/22/17 23:59 23:59 23:59 Intake Total 2704.5 / 2704.5 Output Total 300 / 300 Balance 2404.5 / 2404.5 Microbiology Past 72 Hours 08/21/17 19:30 C. difficile DNA Amplification - Final Stool Laboratory Tests Past 24 Hrs 08/21/17 08/21/17 08/21/17 15:48 17:34 19:05 WBC 9.7 RBC 3.91 L Hgb 10.3 L Hct 35.5 L MCV 90.8 MCH 26.3 L MCHC 29.0 L RDW 15.8 H RDW Differential 52.1 H Plt Count 205 MPV 9.5 Immature Gran % (Auto) 0.200 Neut % (Auto) 84.9 H Lymph % (Auto) 7.6 L [place] % (Auto) 6.9 Eos % (Auto) 0.3 Baso % (Auto) 0.1 Absolute Neuts (auto) 8.2 H Absolute Lymphs (auto) 0.74 L Total Counted Not Reportable Differential Comment PT INR APTT Specimen Type Sample Site pH Bicarbonate Actual POC Total CO2 Base Excess O2 Saturation ABG pCO2 ABG pO2 Darrius Test O2 Delivery Device Blood Gas Notified Whom Blood Gas Notified Time Sodium Potassium Chloride Carbon Dioxide Anion Gap BUN Creatinine Estim Creat Clear Calc Est GFR (MDRD) Af Amer Est GFR (MDRD) Non-Af BUN/Creatinine Ratio Glucose Lactic Acid Cancelled 7.5 H* Calcium MRSA (PCR) 08/21/17 08/21/17 08/21/17 19:30 23:45 23:55 WBC RBC Hgb Hct MCV MCH MCHC RDW RDW Differential Plt Count MPV Immature Gran % (Auto) Neut % (Auto) Lymph % (Auto) [place] % (Auto) Eos % (Auto) Baso % (Auto) Absolute Neuts (auto) Absolute Lymphs (auto) Total Counted Differential Comment PT 20.5 H INR 1.8 APTT 34.3 Specimen Type Sample Site pH Bicarbonate Actual POC Total CO2 Base Excess O2 Saturation ABG pCO2 ABG pO2 Darrius Test O2 Delivery Device Blood Gas Notified Whom Blood Gas Notified Time Sodium Potassium Chloride Carbon Dioxide Anion Gap BUN Creatinine Estim Creat Clear Calc Est GFR (MDRD) Af Amer Est GFR (MDRD) Non-Af BUN/Creatinine Ratio Glucose Lactic Acid 8.3 H* Calcium MRSA (PCR) POSITIVE H 08/22/17 08/22/17 08/22/17 03:50 03:50 03:50 WBC 15.3 H RBC 4.07 L Hgb 10.9 L Hct 37.0 L MCV 90.9 MCH 26.8 L MCHC 29.5 L RDW 15.8 H RDW Differential 52.8 H Plt Count 290 MPV 9.5 Immature Gran % (Auto) 0.200 Neut % (Auto) 84.1 H Lymph % (Auto) 7.9 L [place] % (Auto) 7.7 Eos % (Auto) 0.0 Baso % (Auto) 0.1 Absolute Neuts (auto) 12.9 H Absolute Lymphs (auto) 1.21 Total Counted Not Reportable Differential Comment SCANNED PT INR APTT Specimen Type Sample Site pH Bicarbonate Actual POC Total CO2 Base Excess O2 Saturation ABG pCO2 ABG pO2 Darrius Test O2 Delivery Device Blood Gas Notified Whom Blood Gas Notified Time Sodium 144 Potassium 5.5 H Chloride 114 H Carbon Dioxide 8.0 L* Anion Gap 22 H BUN 41 H Creatinine 1.40 H Estim Creat Clear Calc 47.59 Est GFR (MDRD) Af Amer 64 Est GFR (MDRD) Non-Af 53 L BUN/Creatinine Ratio 29.3 H Glucose 157 H Lactic Acid 6.5 H* Calcium 6.3 L* MRSA (PCR) 08/22/17 06:36 WBC RBC Hgb Hct MCV MCH MCHC RDW RDW Differential Plt Count MPV Immature Gran % (Auto) Neut % (Auto) Lymph % (Auto) [place] % (Auto) Eos % (Auto) Baso % (Auto) Absolute Neuts (auto) Absolute Lymphs (auto) Total Counted Differential Comment PT INR APTT Specimen Type ART Sample Site R Radial pH 7.14 L* Bicarbonate Actual 4.0 L POC Total CO2 < 5 Base Excess -25 L O2 Saturation 97 ABG pCO2 11.8 L* ABG pO2 115 H Darirus Test POS O2 Delivery Device Room Air Blood Gas Notified Whom ICU Blood Gas Notified Time 634 Sodium Potassium Chloride Carbon Dioxide Anion Gap BUN Creatinine Estim Creat Clear Calc Est GFR (MDRD) Af Amer Est GFR (MDRD) Non-Af BUN/Creatinine Ratio Glucose Lactic Acid Calcium MRSA (PCR) POC Glucose 08/22/17 08/21/17 08/21/17 05:12 23:57 18:11 POC Glucose 137 H 125 H 129 H Medical Necessity - Tobacco Use Smoking Status: Never smoker Assessment/Plan All Active Problems Abdominal pain (Acute) History of right above knee amputation (Acute) Septic shock (Acute) Pressure ulcer of sacral region, stage 3 (Acute) Scrotal ulcer (Acute) 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 The patient is having sepsis and his lactic acid is starting to improve. His pressor requirements have gone up. His abdominal pain has resolved and I would suspect that if this was coming from his abdomen he would at least have some abdominal pain as he did have abdominal pain yesterday that has resolved. His abdomen is soft, nontender, nondistended and his CT was normal besides fecal load. He is having several bowel movements since then. 2. Continue broad-spectrum antibiotics and pressor support. Blood cultures pending. If things change CT can be repeated but there are currently no surgical indications or signs or symptoms pointing to the abdomen. Nikolai Anguiano MD Pager: [facility] [address] [place] [address], [address] [place] [phone] Office:
--- NOTE | 2017-08-22 08:01 | PN.SURG_ITS ---
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 He had another large bowel movement overnight. He is having no nausea or vomiting. He does say he is having some chills. - Physical Exam General: Alert, Oriented x3, Cooperative HEENT: Atraumatic Neck: No JVD Lungs: Normal air movement Cardiovascular: Regular rate, Regular Rhythm Abdomen: Soft, Non Tender, Non-Distended, - - Stoma is pink with urine output. Skin: No rashes Neurological: Cranial nerves II-XII grossly intact Psych/Mental Status: Normal Affect Vital Signs Temp Pulse Resp BP Pulse Ox 97.9 F 111 H 17 143/55 H 100 08/22/17 04:00 08/22/17 07:00 08/22/17 07:00 08/22/17 07:15 08/22/17 07:00 Oxygen Delivery Method Room Air Weight: 207 lb 0.225 oz Body Mass Index (BMI) 22.6 Intake and Output for Last 24 Hours 08/20/17 08/21/17 08/22/17 23:59 23:59 23:59 Intake Total 2704.5 / 2704.5 Output Total 300 / 300 Balance 2404.5 / 2404.5 Microbiology Past 72 Hours 08/21/17 19:30 C. difficile DNA Amplification - Final Stool Laboratory Tests Past 24 Hrs 08/21/17 08/21/17 08/21/17 15:48 17:34 19:05 WBC 9.7 RBC 3.91 L Hgb 10.3 L Hct 35.5 L MCV 90.8 MCH 26.3 L MCHC 29.0 L RDW 15.8 H RDW Differential 52.1 H Plt Count 205 MPV 9.5 Immature Gran % (Auto) 0.200 Neut % (Auto) 84.9 H Lymph % (Auto) 7.6 L Douglas % (Auto) 6.9 Eos % (Auto) 0.3 Baso % (Auto) 0.1 Absolute Neuts (auto) 8.2 H Absolute Lymphs (auto) 0.74 L Total Counted Not Reportable Differential Comment PT INR APTT Specimen Type Sample Site pH Bicarbonate Actual POC Total CO2 Base Excess O2 Saturation ABG pCO2 ABG pO2 Darrius Test O2 Delivery Device Blood Gas Notified Whom Blood Gas Notified Time Sodium Potassium Chloride Carbon Dioxide Anion Gap BUN Creatinine Estim Creat Clear Calc Est GFR (MDRD) Af Amer Est GFR (MDRD) Non-Af BUN/Creatinine Ratio Glucose Lactic Acid Cancelled 7.5 H* Calcium MRSA (PCR) 08/21/17 08/21/17 08/21/17 19:30 23:45 23:55 WBC RBC Hgb Hct MCV MCH MCHC RDW RDW Differential Plt Count MPV Immature Gran % (Auto) Neut % (Auto) Lymph % (Auto) Douglas % (Auto) Eos % (Auto) Baso % (Auto) Absolute Neuts (auto) Absolute Lymphs (auto) Total Counted Differential Comment PT 20.5 H INR 1.8 APTT 34.3 Specimen Type Sample Site pH Bicarbonate Actual POC Total CO2 Base Excess O2 Saturation ABG pCO2 ABG pO2 Darrius Test O2 Delivery Device Blood Gas Notified Whom Blood Gas Notified Time Sodium Potassium Chloride Carbon Dioxide Anion Gap BUN Creatinine Estim Creat Clear Calc Est GFR (MDRD) Af Amer Est GFR (MDRD) Non-Af BUN/Creatinine Ratio Glucose Lactic Acid 8.3 H* Calcium MRSA (PCR) POSITIVE H 08/22/17 08/22/17 08/22/17 03:50 03:50 03:50 WBC 15.3 H RBC 4.07 L Hgb 10.9 L Hct 37.0 L MCV 90.9 MCH 26.8 L MCHC 29.5 L RDW 15.8 H RDW Differential 52.8 H Plt Count 290 MPV 9.5 Immature Gran % (Auto) 0.200 Neut % (Auto) 84.1 H Lymph % (Auto) 7.9 L Douglas % (Auto) 7.7 Eos % (Auto) 0.0 Baso % (Auto) 0.1 Absolute Neuts (auto) 12.9 H Absolute Lymphs (auto) 1.21 Total Counted Not Reportable Differential Comment SCANNED PT INR APTT Specimen Type Sample Site pH Bicarbonate Actual POC Total CO2 Base Excess O2 Saturation ABG pCO2 ABG pO2 Darrius Test O2 Delivery Device Blood Gas Notified Whom Blood Gas Notified Time Sodium 144 Potassium 5.5 H Chloride 114 H Carbon Dioxide 8.0 L* Anion Gap 22 H BUN 41 H Creatinine 1.40 H Estim Creat Clear Calc 47.59 Est GFR (MDRD) Af Amer 64 Est GFR (MDRD) Non-Af 53 L BUN/Creatinine Ratio 29.3 H Glucose 157 H Lactic Acid 6.5 H* Calcium 6.3 L* MRSA (PCR) 08/22/17 06:36 WBC RBC Hgb Hct MCV MCH MCHC RDW RDW Differential Plt Count MPV Immature Gran % (Auto) Neut % (Auto) Lymph % (Auto) Douglas % (Auto) Eos % (Auto) Baso % (Auto) Absolute Neuts (auto) Absolute Lymphs (auto) Total Counted Differential Comment PT INR APTT Specimen Type ART Sample Site R Radial pH 7.14 L* Bicarbonate Actual 4.0 L POC Total CO2 < 5 Base Excess -25 L O2 Saturation 97 ABG pCO2 11.8 L* ABG pO2 115 H Darrius Test POS O2 Delivery Device Room Air Blood Gas Notified Whom ICU Blood Gas Notified Time 634 Sodium Potassium Chloride Carbon Dioxide Anion Gap BUN Creatinine Estim Creat Clear Calc Est GFR (MDRD) Af Amer Est GFR (MDRD) Non-Af BUN/Creatinine Ratio Glucose Lactic Acid Calcium MRSA (PCR) POC Glucose 08/22/17 08/21/17 08/21/17 05:12 23:57 18:11 POC Glucose 137 H 125 H 129 H Medical Necessity - Tobacco Use Smoking Status: Never smoker Assessment/Plan All Active Problems Abdominal pain (Acute) History of right above knee amputation (Acute) Septic shock (Acute) Pressure ulcer of sacral region, stage 3 (Acute) Scrotal ulcer (Acute) 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 The patient is having sepsis and his lactic acid is starting to improve. His pressor requirements have gone up. His abdominal pain has resolved and I would suspect that if this was coming from his abdomen he would at least have some abdominal pain as he did have abdominal pain yesterday that has resolved. His abdomen is soft, nontender, nondistended and his CT was normal besides fecal load. He is having several bowel movements since then. 2. Continue broad-spectrum antibiotics and pressor support. Blood cultures pending. If things change CT can be repeated but there are currently no surgical indications or signs or symptoms pointing to the abdomen. Nikolai Anguiano MD Pager: [facility] [address] [place] [address], [address] [place] [phone] Office:
[2017-08-22] MEDS: Ondansetron 4 MG/2 ML Vial IV ×2 (08:40→18:16)
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
[2017-08-22] MEDS: Menthol/Lanolin/Calamine/Znox 113 GM Tube 1 APPLIC TOPICAL ×2 (10:24→21:52)
[2017-08-22] MEDS: Enoxaparin 40 MG/0.4 ML Syringe SC (10:25)
[2017-08-22] MEDS: Vancomycin IV 500 MG/100 ML BAG 100 MG IV ×2 (10:29→21:52)
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
[2017-08-22 11:18] LABS: Lactic Acid 5.6 mmol/L (0.4-2.0)
[2017-08-22 11:50] LABS: Bedside Glucose 122 mg/dL (70-110)
[2017-08-22] MEDS: Lactated Ringers 1,000 ML 999 ML IV (13:33)
--- NOTE | 2017-08-22 16:57 | CHAPLAIN ---
Type of Pastoral Visit _x__ Initial Visit ___ Follow-up Visit ___ On-call Visit ___ General Patient Visit ___ Spiritual Assessment ___ Family Conference ___ Bereavement ___ Rapid Response ___ Code Blue ___ Other (describe below) Pastoral Care Referral From _x__ Patient ___ Family ___ Nurse ___ Physician ___ Surveillance Sensor Officer ___ Home Management Supervisor ___ Other (describe below) Sacrament/Intervention ___ Active listening ___ Anointing ___ Religious ___ Bereavement ___ Communion ___ Love exploration ___ ___ Life review ___ Prayer ___ Reconciliation ___ Sacrament of Sick _x__ Supportive presence ___ Wedding ___ Other (describe below) Pastoral Comments patient was asleep; family members at bedside; offered support and future care as desired
[2017-08-22 18:21] LABS: Bedside Glucose 93 mg/dL (70-110)
[2017-08-23] VITALS (44 sets, daily range): BP systolic 89–159; BP diastolic 35–70; PULSE 105–154; RESP 15–29; TEMP 36.6–36.9; O2SAT 21–100
[2017-08-23] LABS: Bedside Glucose 107 mg/dL (70-110)
[2017-08-23 04:19] LABS: Hematocrit 30.6 % (40-54); Hemoglobin 9.8 g/dl (13.0-16.5); Mean Corpuscular Hgb 27.1 pg (27.0-32.0); Mean Corpuscular Volume 84.5 fL (80-94); Mean Platelet Vol. 8.9 fl (6.2-12.0); Platelet Count 271 K/mm3 (150-450); RBC Distribution Width CV 15.7 % (11.6-14.6); RBC Distribution Width SD 47.6 fl (35.1-43.9); Red Blood Count 3.62 M/mm3 (4.6-6.2); White Blood Count 7.5 K/mm3 (4.4-11.0)
[2017-08-23 04:20] LABS: POSITIVE COUNT NO; POSITIVE DIFFERENTIAL NO; POSITIVE MORPHOLOGY YES
[2017-08-23 04:31] LABS: ALB/GLOB Ratio 0.6 RATIO (0.9-2.4); AST(SGOT) 11 U/L (15-37); Alanine Aminotransfer ALT/SGPT 14 U/L (16-61); Albumin, Serum 1.7 g/dL (3.2-5.0); Alkaline Phosphatase 158 U/L (45-117); Anion Gap 16 (5-15); BUN 57 mg/dL (7-18); BUN/Creat Ratio 28.8 RATIO (10-20); Calcium,Total 6.6 mg/dL (8.5-10.1); Chloride 116 mmol/L (98-107); Creatinine, Serum 1.98 mg/dL (0.70-1.30); EST Glomerular Filtration Rate 35 mL/min (>60); Est Glom Filt Rate - Afr Amer 43 mL/min (>60); Estimated Creatinine Clearance 34.31 ml/min; Globulin 2.9 g/dL (2.2-4.2); Glucose 119 mg/dL (74-106); Potassium 4.6 mmol/L (3.5-5.1); Protein, Total 4.6 g/dL (6.4-8.2); Sodium Level 144 mmol/L (136-145)
[2017-08-23 04:43] LABS: Lactic Acid 1.4 mmol/L (0.4-2.0)
[2017-08-23] MEDS: CHLORHEXIDINE GLUC 2% CLOTH 1 EACH TOWELETTE TOPICAL (05:20)
[2017-08-23 05:23] LABS: Differential Indicated MANUAL DIFF
[2017-08-23 05:24] LABS: Lymphocyte 12 % (19-41); Metamyelocyte 1 % (0-1); Neutrophil-Band 28 % (0-5); Neutrophil-Segmented 52 % (47-70); Total Cells Counted 100 (MANUAL DIFF)
[2017-08-23 05:26] LABS: Burr Cells 2+; Differential Comment SCANNED; Monocyte 7 % (0-10); Tear Drop Cell RARE
[2017-08-23 05:28] LABS: Platelet Estimate ADEQUATE (ADEQ)
[2017-08-23 05:36] LABS: Bedside Glucose 109 mg/dL (70-110)
--- NOTE | 2017-08-23 06:25 | PN_ITS ---
Subjective: Patient did well overnight. Patient continues to have dry heaves and bowel movements. No significant diarrhea has been reported. Patient denies any pain at this time. Patient has been on Levophed overnight to maintain adequate blood pressures. Nursing did report a spontaneous SVT of approximately 160 that resolved without intervention. General: Alert, Oriented x3, Cooperative, No apparent distress, - - Speaking in full sentences. HEENT: Atraumatic, PERRLA, EOMI, Normocephalic, - - No scleral icterus or injection noted. Oral: Moist Mucosa, No Gingival or Mucosal Lesions/ Ulcerations Neck: Supple, No JVD, No Nodes, Trachea Midline, - - IJ is clean, dry and intact. Lungs: No rhonchi, No wheeze, No rales, Diminished, - - Symmetric expansion. No dullness to percussion. Cardiovascular: Normal S1, Normal S2, No murmurs, No rub noted, No Gallop, Tachycardic Abdomen: Bowel Sounds Present, Soft, Distended, Obese, - - No guarding or rebound noted. Extremities: No clubbing, No cyanosis, Edema, Peripheral Pulses Normal Skin: - - No significant change from previous Musculoskeletal: No Tenderness to Palpation of Joints or Extremities Lymphatic: No Cervical, Supraclavicular, or Inguinal Adenopathy Neurological: Neuro grossly intact - No change from previous Psych/Mental Status: Normal Affect, Appropriate Vital Signs Temp Pulse Resp BP Pulse Ox 36.9 C 115 H 19 H 115/47 L 99 08/23/17 04:00 08/23/17 06:00 08/23/17 06:00 08/23/17 06:00 08/23/17 06:00 Oxygen Delivery Method Room Air Weight: 94.4 kg Body Mass Index (BMI) 22.6 Intake and Output for Last 24 Hours 08/21/17 08/22/17 08/23/17 23:59 23:59 23:59 Intake Total 4020.5 / 4020.5 208.1 / 208.1 Output Total 525 / 525 175 / 175 Balance 3495.5 / 3495.5 33.1 / 33.1 Labs (Last 48 Hours) 08/21/17 08/21/17 08/21/17 15:48 17:34 18:11 WBC RBC Hgb Hct MCV MCH MCHC RDW RDW Differential Plt Count MPV Immature Gran % (Auto) Neut % (Auto) Lymph % (Auto) [place] % (Auto) Eos % (Auto) Baso % (Auto) Absolute Neuts (auto) Absolute Lymphs (auto) Total Counted Neutrophils % (Manual) Band Neutrophils % Lymphocytes % (Manual) Monocytes % (Manual) Metamyelocytes % Differential Comment Diff Path Review Platelet Estimate Tear Drop Cells [place] Cells PT INR APTT Specimen Type Sample Site pH Bicarbonate Actual POC Total CO2 Base Excess O2 Saturation ABG pCO2 ABG pO2 Darrius Test O2 Delivery Device Blood Gas Notified Whom Blood Gas Notified Time Sodium Potassium Chloride Carbon Dioxide Anion Gap BUN Creatinine Estim Creat Clear Calc Est GFR (MDRD) Af Amer Est GFR (MDRD) Non-Af BUN/Creatinine Ratio Glucose Lactic Acid Cancelled 7.5 H* Calcium Total Bilirubin AST ALT Alkaline Phosphatase Total Protein Albumin Globulin Albumin/Globulin Ratio MRSA (PCR) POC Glucose 129 H 08/21/17 08/21/17 08/21/17 19:05 19:30 23:45 WBC 9.7 RBC 3.91 L Hgb 10.3 L Hct 35.5 L MCV 90.8 MCH 26.3 L MCHC 29.0 L RDW 15.8 H RDW Differential 52.1 H Plt Count 205 MPV 9.5 Immature Gran % (Auto) 0.200 Neut % (Auto) 84.9 H Lymph % (Auto) 7.6 L [place] % (Auto) 6.9 Eos % (Auto) 0.3 Baso % (Auto) 0.1 Absolute Neuts (auto) 8.2 H Absolute Lymphs (auto) 0.74 L Total Counted Not Reportable Neutrophils % (Manual) Band Neutrophils % Lymphocytes % (Manual) Monocytes % (Manual) Metamyelocytes % Differential Comment Diff Path Review Platelet Estimate Tear Drop Cells [place] Cells PT 20.5 H INR 1.8 APTT 34.3 Specimen Type Sample Site pH Bicarbonate Actual POC Total CO2 Base Excess O2 Saturation ABG pCO2 ABG pO2 Darrius Test O2 Delivery Device Blood Gas Notified Whom Blood Gas Notified Time Sodium Potassium Chloride Carbon Dioxide Anion Gap BUN Creatinine Estim Creat Clear Calc Est GFR (MDRD) Af Amer Est GFR (MDRD) Non-Af BUN/Creatinine Ratio Glucose Lactic Acid Calcium Total Bilirubin AST ALT Alkaline Phosphatase Total Protein Albumin Globulin Albumin/Globulin Ratio MRSA (PCR) POSITIVE H POC Glucose 08/21/17 08/21/17 08/22/17 23:55 23:57 03:50 WBC 15.3 H RBC 4.07 L Hgb 10.9 L Hct 37.0 L MCV 90.9 MCH 26.8 L MCHC 29.5 L RDW 15.8 H RDW Differential 52.8 H Plt Count 290 MPV 9.5 Immature Gran % (Auto) 0.200 Neut % (Auto) 84.1 H Lymph % (Auto) 7.9 L [place] % (Auto) 7.7 Eos % (Auto) 0.0 Baso % (Auto) 0.1 Absolute Neuts (auto) 12.9 H Absolute Lymphs (auto) 1.21 Total Counted Not Reportable Neutrophils % (Manual) Band Neutrophils % Lymphocytes % (Manual) Monocytes % (Manual) Metamyelocytes % Differential Comment SCANNED Diff Path Review Platelet Estimate Tear Drop Cells [place] Cells PT INR APTT Specimen Type Sample Site pH Bicarbonate Actual POC Total CO2 Base Excess O2 Saturation ABG pCO2 ABG pO2 Darrius Test O2 Delivery Device Blood Gas Notified Whom Blood Gas Notified Time Sodium Potassium Chloride Carbon Dioxide Anion Gap BUN Creatinine Estim Creat Clear Calc Est GFR (MDRD) Af Amer Est GFR (MDRD) Non-Af BUN/Creatinine Ratio Glucose Lactic Acid 8.3 H* Calcium Total Bilirubin AST ALT Alkaline Phosphatase Total Protein Albumin Globulin Albumin/Globulin Ratio MRSA (PCR) POC Glucose 125 H 08/22/17 08/22/17 08/22/17 03:50 03:50 05:12 WBC RBC Hgb Hct MCV MCH MCHC RDW RDW Differential Plt Count MPV Immature Gran % (Auto) Neut % (Auto) Lymph % (Auto) [place] % (Auto) Eos % (Auto) Baso % (Auto) Absolute Neuts (auto) Absolute Lymphs (auto) Total Counted Neutrophils % (Manual) Band Neutrophils % Lymphocytes % (Manual) Monocytes % (Manual) Metamyelocytes % Differential Comment Diff Path Review Platelet Estimate Tear Drop Cells [place] Cells PT INR APTT Specimen Type Sample Site pH Bicarbonate Actual POC Total CO2 Base Excess O2 Saturation ABG pCO2 ABG pO2 Darrius Test O2 Delivery Device Blood Gas Notified Whom Blood Gas Notified Time Sodium 144 Potassium 5.5 H Chloride 114 H Carbon Dioxide 8.0 L* Anion Gap 22 H BUN 41 H Creatinine 1.40 H Estim Creat Clear Calc 47.59 Est GFR (MDRD) Af Amer 64 Est GFR (MDRD) Non-Af 53 L BUN/Creatinine Ratio 29.3 H Glucose 157 H Lactic Acid 6.5 H* Calcium 6.3 L* Total Bilirubin AST ALT Alkaline Phosphatase Total Protein Albumin Globulin Albumin/Globulin Ratio MRSA (PCR) POC Glucose 137 H 08/22/17 08/22/17 08/22/17 06:36 10:40 11:48 WBC RBC Hgb Hct MCV MCH MCHC RDW RDW Differential Plt Count MPV Immature Gran % (Auto) Neut % (Auto) Lymph % (Auto) [place] % (Auto) Eos % (Auto) Baso % (Auto) Absolute Neuts (auto) Absolute Lymphs (auto) Total Counted Neutrophils % (Manual) Band Neutrophils % Lymphocytes % (Manual) Monocytes % (Manual) Metamyelocytes % Differential Comment Diff Path Review Platelet Estimate Tear Drop Cells [place] Cells PT INR APTT Specimen Type ART Sample Site R Radial pH 7.14 L* Bicarbonate Actual 4.0 L POC Total CO2 < 5 Base Excess -25 L O2 Saturation 97 ABG pCO2 11.8 L* ABG pO2 115 H Darrius Test POS O2 Delivery Device Room Air Blood Gas Notified Whom ICU MD Blood Gas Notified Time 634 Sodium Potassium Chloride Carbon Dioxide Anion Gap BUN Creatinine Estim Creat Clear Calc Est GFR (MDRD) Af Amer Est GFR (MDRD) Non-Af BUN/Creatinine Ratio Glucose Lactic Acid 5.6 H* Calcium Total Bilirubin AST ALT Alkaline Phosphatase Total Protein Albumin Globulin Albumin/Globulin Ratio MRSA (PCR) POC Glucose 122 H 08/22/17 08/22/17 08/23/17 18:14 23:51 04:00 WBC 7.5 RBC 3.62 L Hgb 9.8 L Hct 30.6 L MCV 84.5 MCH 27.1 MCHC 32.0 RDW 15.7 H RDW Differential 47.6 H Plt Count 271 MPV 8.9 Immature Gran % (Auto) HOSPICE PATIENT CARE SECRETARY Neut % (Auto) HOSPICE PATIENT CARE SECRETARY Lymph % (Auto) HOSPICE PATIENT CARE SECRETARY [place] % (Auto) HOSPICE PATIENT CARE SECRETARY Eos % (Auto) HOSPICE PATIENT CARE SECRETARY Baso % (Auto) HOSPICE PATIENT CARE SECRETARY Absolute Neuts (auto) 6.0 Absolute Lymphs (auto) 0.90 Total Counted 100 Neutrophils % (Manual) 52 Band Neutrophils % 28 H Lymphocytes % (Manual) 12 L Monocytes % (Manual) 7 Metamyelocytes % 1 Differential Comment SCANNED Diff Path Review May foll Platelet Estimate ADEQUATE Tear Drop Cells RARE [place] Cells 2+ PT INR APTT Specimen Type Sample Site pH Bicarbonate Actual POC Total CO2 Base Excess O2 Saturation ABG pCO2 ABG pO2 Darrius Test O2 Delivery Device Blood Gas Notified Whom Blood Gas Notified Time Sodium Potassium Chloride Carbon Dioxide Anion Gap BUN Creatinine Estim Creat Clear Calc Est GFR (MDRD) Af Amer Est GFR (MDRD) Non-Af BUN/Creatinine Ratio Glucose Lactic Acid Calcium Total Bilirubin AST ALT Alkaline Phosphatase Total Protein Albumin Globulin Albumin/Globulin Ratio MRSA (PCR) POC Glucose 93 107 08/23/17 08/23/17 08/23/17 04:00 04:00 05:16 WBC RBC Hgb Hct MCV MCH MCHC RDW RDW Differential Plt Count MPV Immature Gran % (Auto) Neut % (Auto) Lymph % (Auto) [place] % (Auto) Eos % (Auto) Baso % (Auto) Absolute Neuts (auto) Absolute Lymphs (auto) Total Counted Neutrophils % (Manual) Band Neutrophils % Lymphocytes % (Manual) Monocytes % (Manual) Metamyelocytes % Differential Comment Diff Path Review Platelet Estimate Tear Drop Cells [place] Cells PT INR APTT Specimen Type Sample Site pH Bicarbonate Actual POC Total CO2 Base Excess O2 Saturation ABG pCO2 ABG pO2 Darrius Test O2 Delivery Device Blood Gas Notified Whom Blood Gas Notified Time Sodium 144 Potassium 4.6 Chloride 116 H Carbon Dioxide 12.0 L Anion Gap 16 H BUN 57 H Creatinine 1.98 H Estim Creat Clear Calc 34.31 Est GFR (MDRD) Af Amer 43 L Est GFR (MDRD) Non-Af 35 L BUN/Creatinine Ratio 28.8 H Glucose 119 H Lactic Acid 1.4 Calcium 6.6 L Total Bilirubin 0.30 AST 11 L ALT 14 L Alkaline Phosphatase 158 H Total Protein 4.6 L Albumin 1.7 L Globulin 2.9 Albumin/Globulin Ratio 0.6 L MRSA (PCR) POC Glucose 109 Microbiology 08/21/17 23:00 Wound - Buttock Gram Stain - Final 08/21/17 23:00 Wound - Buttock Wound Culture - Preliminary GNR 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 difficile DNA Amplification - Final Medical Necessity - Tobacco Use Smoking Status: Never smoker Assessment/Plan All Active Problems Abdominal pain (Acute) History of right above knee amputation (Acute) Septic shock (Acute) Pressure ulcer of sacral region, stage 3 (Acute) Scrotal ulcer (Acute) 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 (Acute) Complicated UTI (urinary tract infection) (Acute) Constipation (Acute) Pressure ulcer of perianal region (Resolved) Pressure ulcer of buttock (Resolved) UTI (urinary tract infection) (Acute) RECOMMENDATIONS: 1. Wean pressors as tolerated 2. Continue current antibiotics until cultures resulted 3. Fluid boluses as necessary 4. Titrate Levophed to keep map greater than 65 5. Consult wound team 6. BiPAP rescue if shows respiratory muscle fatigue IMPRESSIONS: 1. Suspected septic shock of unclear etiology Unclear source of septic shock at this time. Patient is growing a gram- negative selwyn on wound culture. This is likely the source of patient's decompensation. Levophed has stabilized. Patient does not have a leukocytosis , but significant bandemia is noted. Patient remains on room air. Will continue to wean Levophed as tolerated to avoid complications with SVT. Wound team following. 2. Severe lactic acidosis/anion gap metabolic acidosis Patient with significant lactic acidosis that appears to be improving with the use of pressor agents. Patient's respiratory status has significantly improved compared to previous. Bicarbonate is improving along with anion gap. Lactate was within normal limits at this time. Patient does have some increase in creatinine and may be developing a non-anion gap metabolic acidosis from renal failure. Will need to watch closely. 3. Constipation Patient did present with Lomotil and constipation. Unclear if patient had issues with bowel ischemia secondary to constipation. Patient is having bowel movements at this time. Lomotil is been discontinued. Continue to monitor closely. 4. Acute kidney injury/hyperkalemia/hypocalcemia Likely secondary to septic shock. Patient's creatinine is not very impressive as an individual value, but given paraplegia, baseline creatinine is approximately 0.6. Patient did receive a fluid bolus yesterday secondary to decreased urine output with some response. We will continue to bolus with fluids if necessary. P.o. intake per surgery. Corrected calcium is acceptable at this time. 5. Diabetes mellitus type 2/hypothyroidism/T4 paraplegia/poor history Complicates care, management, recovery and prognosis. Blood sugars well controlled on current regimen. TIME: 35 minutes of critical care time spent addressing patient's septic shock, acute kidney injury, review of all data and collaboration with care team. (5: 30 AM to 6:30 AM) Code Visit [id number]: [id number] Critical care first hour
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
--- NOTE | 2017-08-23 08:53 | PCM.PN.SRG ---
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5 F 106 H 17 119/63 99 08/23/17 04:00 08/23/17 08:00 08/23/17 08:00 08/23/17 08:00 08/23/17 08:00 Oxygen Delivery Method Room Air Weight: 208 lb 1.862 oz Body Mass Index (BMI) 22.6 Intake and Output for Last 24 Hours 08/21/17 08/22/17 08/23/17 23:59 23:59 23:59 Intake Total 4020.5 / 4020.5 208.1 / 208.1 Output Total 525 / 525 175 / 175 Balance 3495.5 / 3495.5 33.1 / 33.1 Microbiology Past 72 Hours 08/21/17 23:00 Gram Stain - Final Wound - Buttock Wound Culture - Preliminary GNR lactose coat repair inspector 08/21/17 19:30 C. difficile DNA Amplification - Final Stool Laboratory Tests Past 24 Hrs 08/22/17 08/23/17 08/23/17 10:40 04:00 04:00 WBC 7.5 RBC 3.62 L Hgb 9.8 L Hct 30.6 L MCV 84.5 MCH 27.1 MCHC 32.0 RDW 15.7 H RDW Differential 47.6 H Plt Count 271 MPV 8.9 Immature Gran % (Auto) HULL GRINDER Neut % (Auto) HULL GRINDER Lymph % (Auto) HULL GRINDER [facility] % (Auto) HULL GRINDER Eos % (Auto) HULL GRINDER Baso % (Auto) HULL GRINDER Absolute Neuts (auto) 6.0 Absolute Lymphs (auto) 0.90 Total Counted 100 Neutrophils % (Manual) 52 Band Neutrophils % 28 H Lymphocytes % (Manual) 12 L Monocytes % (Manual) 7 Metamyelocytes % 1 Differential Comment SCANNED Diff Path Review May foll Platelet Estimate ADEQUATE Tear Drop Cells RARE Tiffanie Cells 2+ Sodium 144 Potassium 4.6 Chloride 116 H Carbon Dioxide 12.0 L Anion Gap 16 H BUN 57 H Creatinine 1.98 H Estim Creat Clear Calc 34.31 Est GFR (MDRD) Af Amer 43 L Est GFR (MDRD) Non-Af 35 L BUN/Creatinine Ratio 28.8 H Glucose 119 H Lactic Acid 5.6 H* Calcium 6.6 L Total Bilirubin 0.30 AST 11 L ALT 14 L Alkaline Phosphatase 158 H Total Protein 4.6 L Albumin 1.7 L Globulin 2.9 Albumin/Globulin Ratio 0.6 L 08/23/17 04:00 WBC RBC Hgb Hct MCV MCH MCHC RDW RDW Differential Plt Count MPV Immature Gran % (Auto) Neut % (Auto) Lymph % (Auto) [facility] % (Auto) Eos % (Auto) Baso % (Auto) Absolute Neuts (auto) Absolute Lymphs (auto) Total Counted Neutrophils % (Manual) Band Neutrophils % Lymphocytes % (Manual) Monocytes % (Manual) Metamyelocytes % Differential Comment Diff Path Review Platelet Estimate Tear Drop Cells [place] Cells Sodium Potassium Chloride Carbon Dioxide Anion Gap BUN Creatinine Estim Creat Clear Calc Est GFR (MDRD) Af Amer Est GFR (MDRD) Non-Af BUN/Creatinine Ratio Glucose Lactic Acid 1.4 Calcium Total Bilirubin AST ALT Alkaline Phosphatase Total Protein Albumin Globulin Albumin/Globulin Ratio POC Glucose 08/23/17 08/22/17 08/22/17 05:16 23:51 18:14 POC Glucose 109 107 93 08/22/17 11:48 POC Glucose 122 H Medical Necessity - Tobacco Use Smoking Status: Never smoker Assessment/Plan All Active Problems Abdominal pain (Acute) History of right above knee amputation (Acute) Septic shock (Acute) Pressure ulcer of sacral region, stage 3 (Acute) Scrotal ulcer (Acute) 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 The patient is having sepsis and his lactic acid is within normal limits. His pressor requirements have stabilized/decreased slightly. His abdomen is soft, nontender, nondistended. He has had several bowel movements since the increased fecal load on CT abdomen pelvis and the pain has subsided, do not think that his abdomen is a source of his sepsis. 2. Continue broad-spectrum antibiotics and pressor support per pain medicine physician. Blood cultures pending. If things change CT can be repeated but there are currently no surgical indications or signs or symptoms pointing to the abdomen. Katherin Isidro M.D. Pager: [phone] [facility] [address] [place] [address], [address] [place] [address] Office: [phone]
--- NOTE | 2017-08-23 08:56 | PN.SURG_ITS ---
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5 F 106 H 17 119/63 99 08/23/17 04:00 08/23/17 08:00 08/23/17 08:00 08/23/17 08:00 08/23/17 08:00 Oxygen Delivery Method Room Air Weight: 208 lb 1.862 oz Body Mass Index (BMI) 22.6 Intake and Output for Last 24 Hours 08/21/17 08/22/17 08/23/17 23:59 23:59 23:59 Intake Total 4020.5 / 4020.5 208.1 / 208.1 Output Total 525 / 525 175 / 175 Balance 3495.5 / 3495.5 33.1 / 33.1 Microbiology Past 72 Hours 08/21/17 23:00 Gram Stain - Final Wound - Buttock Wound Culture - Preliminary GNR lactose public health technician 08/21/17 19:30 C. difficile DNA Amplification - Final Stool Laboratory Tests Past 24 Hrs 08/22/17 08/23/17 08/23/17 10:40 04:00 04:00 WBC 7.5 RBC 3.62 L Hgb 9.8 L Hct 30.6 L MCV 84.5 MCH 27.1 MCHC 32.0 RDW 15.7 H RDW Differential 47.6 H Plt Count 271 MPV 8.9 Immature Gran % (Auto) PRINCIPAL SOFTWARE ENGINEER Neut % (Auto) PRINCIPAL SOFTWARE ENGINEER Lymph % (Auto) PRINCIPAL SOFTWARE ENGINEER Lamb % (Auto) PRINCIPAL SOFTWARE ENGINEER Eos % (Auto) PRINCIPAL SOFTWARE ENGINEER Baso % (Auto) PRINCIPAL SOFTWARE ENGINEER Absolute Neuts (auto) 6.0 Absolute Lymphs (auto) 0.90 Total Counted 100 Neutrophils % (Manual) 52 Band Neutrophils % 28 H Lymphocytes % (Manual) 12 L Monocytes % (Manual) 7 Metamyelocytes % 1 Differential Comment SCANNED Diff Path Review May foll Platelet Estimate ADEQUATE Tear Drop Cells RARE Tiffanie Cells 2+ Sodium 144 Potassium 4.6 Chloride 116 H Carbon Dioxide 12.0 L Anion Gap 16 H BUN 57 H Creatinine 1.98 H Estim Creat Clear Calc 34.31 Est GFR (MDRD) Af Amer 43 L Est GFR (MDRD) Non-Af 35 L BUN/Creatinine Ratio 28.8 H Glucose 119 H Lactic Acid 5.6 H* Calcium 6.6 L Total Bilirubin 0.30 AST 11 L ALT 14 L Alkaline Phosphatase 158 H Total Protein 4.6 L Albumin 1.7 L Globulin 2.9 Albumin/Globulin Ratio 0.6 L 08/23/17 04:00 WBC RBC Hgb Hct MCV MCH MCHC RDW RDW Differential Plt Count MPV Immature Gran % (Auto) Neut % (Auto) Lymph % (Auto) Lamb % (Auto) Eos % (Auto) Baso % (Auto) Absolute Neuts (auto) Absolute Lymphs (auto) Total Counted Neutrophils % (Manual) Band Neutrophils % Lymphocytes % (Manual) Monocytes % (Manual) Metamyelocytes % Differential Comment Diff Path Review Platelet Estimate Tear Drop Cells [place] Cells Sodium Potassium Chloride Carbon Dioxide Anion Gap BUN Creatinine Estim Creat Clear Calc Est GFR (MDRD) Af Amer Est GFR (MDRD) Non-Af BUN/Creatinine Ratio Glucose Lactic Acid 1.4 Calcium Total Bilirubin AST ALT Alkaline Phosphatase Total Protein Albumin Globulin Albumin/Globulin Ratio POC Glucose 08/23/17 08/22/17 08/22/17 05:16 23:51 18:14 POC Glucose 109 107 93 08/22/17 11:48 POC Glucose 122 H Medical Necessity - Tobacco Use Smoking Status: Never smoker Assessment/Plan All Active Problems Abdominal pain (Acute) History of right above knee amputation (Acute) Septic shock (Acute) Pressure ulcer of sacral region, stage 3 (Acute) Scrotal ulcer (Acute) 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 The patient is having sepsis and his lactic acid is within normal limits. His pressor requirements have stabilized/decreased slightly. His abdomen is soft, nontender, nondistended. He has had several bowel movements since the increased fecal load on CT abdomen pelvis and the pain has subsided, do not think that his abdomen is a source of his sepsis. 2. Continue broad-spectrum antibiotics and pressor support per acid correction hand. Blood cultures pending. If things change CT can be repeated but there are currently no surgical indications or signs or symptoms pointing to the abdomen. Katherin Isidro M.D. Pager: [phone] [facility] [address] [place] [address], [address] [place] [address] Office: [phone]
[2017-08-23] MEDS: 0.9% Normal Saline 1,000 ML 100 ML IV (09:47)
[2017-08-23] MEDS: Vancomycin IV 500 MG/100 ML BAG 100 MG IV (09:48)
[2017-08-23] MEDS: Menthol/Lanolin/Calamine/Znox 113 GM Tube 1 APPLIC TOPICAL ×2 (09:49→21:19)
--- NOTE | 2017-08-23 10:02 | US_ITS ---
STUDY: RENAL ULTRASOUND - LIMITED REASON FOR EXAM: Male, 71 years old. Acute renal failure TECHNIQUE: Transverse and longitudinal imaging of the kidneys was performed using real-time ultrasound. COMPARISON: CT abdomen and pelvis dated August 21, 2017; renal ultrasound dated June 10, 2011 FINDINGS: RIGHT KIDNEY: The right kidney is normal in location. The right kidney measures 13.2 x 5.8 x 6.4 cm. The renal cortex is normal in appearance. The renal cortex measures 6.9 mm (obtained in the sagittal plane mid pole from the capsule to the pyramid- normal is greater than or equal to 6 mm). There is at least one cyst shown in the upper pole of the right kidney measuring 1.4 cm. There is no dilatation of the collecting system. LEFT KIDNEY: The left kidney is normal in location. The left kidney measures 9.8 x 5.3 x 5.0 cm. There is cortical thinning. The renal cortex measures 4.9 mm (obtained in the sagittal plane mid pole from the capsule to the pyramid- normal is greater than or equal to 6 mm). At least three cysts are shown in the left kidney measuring up to 2.7 cm in size. There is mild dilatation of the collecting system. US/Kidney and Bladder IMPRESSION: There is atrophy of the left kidney with hydronephrosis, as demonstrated on the recent CT. The right kidney is normal in size and echogenicity without hydronephrosis. Electronically Signed: Bell Kapoor MD at 20:08 EDT Tel Direct: [phone], Service support ,
--- NOTE | 2017-08-23 10:32 | CASEMGMT ---
SW participated in ICU rounds this morning, it is anticipated pt will stay in ICU today. Pt is sleeping at present, SW will attempt to speak w/pt later today. ARELI Ward, PSYCHIATRIC ARNP
--- NOTE | 2017-08-23 10:58 | CASEMGMT ---
Addendum entered by Radha Heath 08/23/17 11:16: RN spoke w/physician, she will come up to speak w/pt and daughter, RN let pt and daughter know. If needed, pt is okay w/being transferred to another hospital. SW will continue to follow. ARELI Ward, BORDER PATROL OFFICER Original Note: Pt's daughter Ivone is here now, pt is awake, alert and oriented. As per Ivone and pt, pt had been home just since last Friday(08/15) from [facility]. As per pt, he was at [facility] for about 7 weeks. Daughter and pt state pt was doing okay and all felt pt was okay to return home. Pt has home care and private hire aides, pt's has dementia as per daughter and lives in assisted living. Daughter states she does believe she is POA, though pt is alert and oriented. Pt asked about a gastro doctor coming to see him. SW explained does not know about this, will ask RN. RN is paging physician about it. If SNF needed, [facility] states pt was okay w/[facility], but would rather go home if possible. SW explained will continue to follow for potential skilled nursing placement and support to pt and daughter. ARELI Ward, BORDER PATROL OFFICER
[2017-08-23 12:21] LABS: Bedside Glucose 146 mg/dL (70-110)
--- NOTE | 2017-08-23 12:28 | CASEMGMT ---
In-Network Tertiary Care Facilities: [facility]
--- NOTE | 2017-08-23 13:18 | PCM.PN.BLA ---
Progress Note Information given to me by nursing staff to speak to patient's daughter, Ivone Warren [phone], who had expressed frustration about the current state of her father and especially with regards to the chronicity of his abdominal discomfort and constipation since November 2016. I called the patient at 1:20 PM, left a voice message.
--- NOTE | 2017-08-23 14:16 | PCM.RX.CS ---
Consult Pharmacy has been consulted to manage selected antiobiotic: Vancomycin Type of Consult: Follow-up Suspected Infection: Skin/Soft tissue Prior Doses of Antibiotics Received/Current Regimen: patient currently on vancomycin 500mg iv q12h Labs: Sodium 144 mmol/L (136-145) 08/23/17 04:00 Potassium 4.6 mmol/L (3.5-5.1) 08/23/17 04:00 Chloride 116 mmol/L (98-107) H 08/23/17 04:00 Carbon Dioxide 12.0 mmol/L (21.0-32.0) L 08/23/17 04:00 Anion Gap 16 (5-15) H 08/23/17 04:00 BUN 57 mg/dL (7-18) H 08/23/17 04:00 Creatinine 1.98 mg/dL (0.70-1.30) H 08/23/17 04:00 Est GFR (MDRD) Af Amer 43 mL/min (>60) L 08/23/17 04:00 Est GFR (MDRD) Non-Af 35 mL/min (>60) L 08/23/17 04:00 BUN/Creatinine Ratio 28.8 RATIO (10-20) H 08/23/17 04:00 Glucose 119 mg/dL (74-106) H 08/23/17 04:00 Vancomycin Trough 22.0 ug/mL (5.0-15.0) H 08/23/17 09:30 Microbiology: Microbiology 08/21/17 23:00 Wound - Buttock Gram Stain - Final 08/21/17 23:00 Wound - Buttock Wound Culture - Preliminary GNR lactose jewel hole driller Gram negative selwyn Alpha hemolytic organism 08/21/17 19:30 Urine, Catheterized Urine Culture - Preliminary Culture exhibits no growth. 08/21/17 19:30 Stool C. difficile DNA Amplification - Final Weight used for dosin.6 kg Estimated Creatinine Clearance: 34 ml/min Goal Trough: 10-15 mcg/mL Pharmacy Plan for Drug Dosing: Patient's vancomycin trough 08.23.14 @0930 was 22 (goal 10-15) Renal status has changed from Cr 0.98 to 1.98. Will hold vancomycin till random level gotten in AM on 08.24.17. Will review and determine dosage and freq at that time. Pharmacy Service will continue to monitor and adjust dosing as required. Follow-Up Labs: Trough Vancomycin - 7.15.18 @4925
--- NOTE | 2017-08-23 14:27 | PHA.PHARE_ITS ---
Consult Pharmacy has been consulted to manage selected antiobiotic: Vancomycin Type of Consult: Follow-up Suspected Infection: Skin/Soft tissue Prior Doses of Antibiotics Received/Current Regimen: patient currently on vancomycin 500mg iv q12h Labs: Sodium 144 mmol/L (136-145) 08/23/17 04:00 Potassium 4.6 mmol/L (3.5-5.1) 08/23/17 04:00 Chloride 116 mmol/L (98-107) H 08/23/17 04:00 Carbon Dioxide 12.0 mmol/L (21.0-32.0) L 08/23/17 04:00 Anion Gap 16 (5-15) H 08/23/17 04:00 BUN 57 mg/dL (7-18) H 08/23/17 04:00 Creatinine 1.98 mg/dL (0.70-1.30) H 08/23/17 04:00 Est GFR (MDRD) Af Amer 43 mL/min (>60) L 08/23/17 04:00 Est GFR (MDRD) Non-Af 35 mL/min (>60) L 08/23/17 04:00 BUN/Creatinine Ratio 28.8 RATIO (10-20) H 08/23/17 04:00 Glucose 119 mg/dL (74-106) H 08/23/17 04:00 Vancomycin Trough 22.0 ug/mL (5.0-15.0) H 08/23/17 09:30 Microbiology: Microbiology 08/21/17 23:00 Wound - Buttock Gram Stain - Final 08/21/17 23:00 Wound - Buttock Wound Culture - Preliminary GNR lactose lead tank mechanic Gram negative selwyn Alpha hemolytic organism 08/21/17 19:30 Urine, Catheterized Urine Culture - Preliminary Culture exhibits no growth. 08/21/17 19:30 Stool C. difficile DNA Amplification - Final Weight used for dosin.6 kg Estimated Creatinine Clearance: 34 ml/min Goal Trough: 10-15 mcg/mL Pharmacy Plan for Drug Dosing: Patient's vancomycin trough 08.23.14 @0930 was 22 (goal 10-15) Renal status has changed from Cr 0.98 to 1.98. Will hold vancomycin till random level gotten in AM on 08.24.17. Will review and determine dosage and freq at that time. Pharmacy Service will continue to monitor and adjust dosing as required. Follow-Up Labs: Trough Vancomycin - 7.15.18 @8013
[2017-08-23 17:46] LABS: Bedside Glucose 116 mg/dL (70-110)
[2017-08-23] MEDS: Pravastatin 40 MG Tablet PO (21:19)
[2017-08-23] MEDS: Sucralfate 1 GM Tablet PO (21:19)
[2017-08-23] MEDS: Adenosine 6 MG/2 ML Syringe IV (21:54)
[2017-08-23] MEDS: 0.9% NaCl Peripheral Flush Adult/Peds IV (21:54)
--- NOTE | 2017-08-23 22:34 | EKG12_ITS ---
Test Reason : SVT Blood Pressure : / mmHG Vent. Rate : 101 BPM Atrial Rate : 101 BPM P-R Int : 122 ms QRS Dur : 074 ms QT Int : 324 ms P-R-T Axes : 059 005 048 degrees QTc Int : 420 ms Sinus tachycardia Otherwise normal ECG When compared with ECG of 23-AUG-2017 21:37, MANUAL COMPARISON REQUIRED, DATA IS UNCONFIRMED Confirmed by EROS ALFONSO, PRABHA ([id number]), senior technical editor JAIDEN KRISHNAMURTHY ([id number]) on 08/26/2017 3:08:17 PM Referred By: SATHISH Confirmed By:PRABHA COONEY MD
--- NOTE | 2017-08-23 22:34 | EKG12_ITS ---
Test Reason : SVT Blood Pressure : / mmHG Vent. Rate : 153 BPM Atrial Rate : 038 BPM P-R Int : 000 ms QRS Dur : 070 ms QT Int : 336 ms P-R-T Axes : 000 -12 082 degrees QTc Int : 536 ms Supraventricular tachycardia Low voltage QRS Inferior infarct , age undetermined Abnormal ECG When compared with ECG of 19-JUN-2017 05:58, Vent. rate has increased BY 58 BPM Inferior infarct is now Present Confirmed by EROS ALFONSO, PRABHA ([id number]), social media editor JAIDEN KRISHNAMURTHY ([id number]) on 08/26/2017 3:08:25 PM Referred By: KIKI Confirmed By:PRABHA COONEY MD
[2017-08-24] VITALS (34 sets, daily range): BP systolic 77–124; BP diastolic 45–67; PULSE 91–148; RESP 14–28; TEMP 36.2–36.9; O2SAT 95–100
[2017-08-24 00:46] LABS: Bedside Glucose 143 mg/dL (70-110)
[2017-08-24 04:11] LABS: Absolute Neutrophil Count 4.7 X10^3/uL (2.0-7.7); Basophil# 0.01 X10^3/uL; Basophil% 0.2 % (0-1); Differential Indicated SCAN CRITERIA MET; Eosinophil# 0.04 X10^3/uL; Eosinophils% 0.7 % (0-5); Hematocrit 27.5 % (40-54); Hemoglobin 8.8 g/dl (13.0-16.5); Lymphocyte % 11.8 % (19-41); Mean Corpuscular Hgb 26.8 pg (27.0-32.0); Mean Corpuscular Volume 83.8 fL (80-94); Monocyte# 0.49 X10^3/uL; Monocyte% 8.2 % (0-10); Neutrophil % 78.9 % (47-70); POSITIVE COUNT NO; POSITIVE DIFFERENTIAL NO; POSITIVE MORPHOLOGY YES; Platelet Count 195 K/mm3 (150-450); RBC Distribution Width CV 16.2 % (11.6-14.6); RBC Distribution Width SD 49.7 fl (35.1-43.9); Red Blood Count 3.28 M/mm3 (4.6-6.2)
[2017-08-24 04:28] LABS: Anion Gap 14 (5-15); BUN 60 mg/dL (7-18); BUN/Creat Ratio 26.5 RATIO (10-20); Calcium,Total 6.2 mg/dL (8.5-10.1); Chloride 116 mmol/L (98-107); Creatinine, Serum 2.26 mg/dL (0.70-1.30); EST Glomerular Filtration Rate 30 mL/min (>60); Est Glom Filt Rate - Afr Amer 37 mL/min (>60); Estimated Creatinine Clearance 30.06 ml/min; Glucose 151 mg/dL (74-106); Potassium 3.5 mmol/L (3.5-5.1); Sodium Level 143 mmol/L (136-145)
[2017-08-24 04:42] LABS: Phosphorus 4.6 mg/dL (2.5-4.9)
[2017-08-24 04:43] LABS: Magnesium 1.7 mg/dL (1.6-2.6)
[2017-08-24] MEDS: 0.9% NaCl Peripheral Flush Adult/Peds IV ×2 (05:12→06:29)
[2017-08-24 05:16] LABS: Differential Comment SCANNED
[2017-08-24 05:20] LABS: Bedside Glucose 145 mg/dL (70-110)
--- NOTE | 2017-08-24 05:44 | ECHOD_ITS ---
Reason For Study: ARRYTHMIA Procedure This was a 2D Doppler, Color Flow transthoracic echocardiogram. Exam performed portable in patient room. Left Ventricle Normal LV size. Left ventricular systolic function is normal. The estimated ejection fraction is 65 %. Transmitral diastolic flow velocities suggest mild (stage 1) diastolic dysfunction (reversed pattern). No regional wall motion abnormalities noted. Right Ventricle Normal RV size. Normal systolic function. Atria Normal left atrium. Normal right atrium. Mitral Valve Normal mitral valve. Tricuspid Valve Normal tricuspid valve. Mild tricuspid valve insufficiency. Pulmonary artery systolic pressure is 20 mmHg. Aortic Valve Normal aortic valve. Trisinus/trileaflet aortic valve. Pulmonic Valve Normal pulmonic valve. Great Vessels Normal aortic root. The pulmonary artery is normal size. Normal inferior vena cava. Pericardium/Pleural No pericardial effusion. MMode/2D Measurements & Calculations LVIDd: 4.4 cm IVSd: 1.1 cm Ao root diam: 3.8 cm LVIDs: 2.8 cm LVPWd: 1.0 cm LA dimension: 2.9 cm RVDd: 3.0 cm FS: 35.8 % LAV(MOD-sp4): 26.7 ml LVAd ap4: 30.2 cm2 SV(MOD-sp4): 57.1 ml EDV(MOD-sp4): 98.7 ml EDV(sp4-el): 104.3 ml LVAs ap4: 17.0 cm2 ESV(MOD-sp4): 41.6 ml ESV(sp4-el): 41.5 ml EF(MOD-sp4): 57.9 % EF(sp4-el): 60.2 % SV(sp4-el): 62.8 ml LA A4 area: 11.9 cm2 RA A4 area: 12.3 cm2 Time Measurements MV dec time: 0.22 sec Doppler Measurements & Calculations MV E max cliff: 70.4 cm/sec Lat Peak E' Cliff: 7.6 cm/sec Med Peak E' Cliff: 6.4 cm/sec MV A max cliff: 92.5 cm/sec E/E' lat: 9.2 E/E' med: 11.0 MV E/A: 0.76 Ao V2 max: 121.0 cm/sec LV V1 max: 109.7 cm/sec PA V2 max: 110.4 cm/sec Ao max P.9 mmHg LV V1 max P.8 mmHg TR max cliff: 211.6 cm/sec TR max P.9 mmHg Interpretation Summary Normal LV size. Left ventricular systolic function is normal. The estimated ejection fraction is 65 %. Transmitral diastolic flow velocities suggest mild (stage 1) diastolic dysfunction (reversed pattern). Mild tricuspid valve insufficiency. Ordering Physician: Yoav Alexandre Referring Physician: NANCY FOX Performed By: Meghan Rico RDCS
--- NOTE | 2017-08-24 06:16 | PCM.PN.INT ---
Subjective: Patient with issues overnight. Patient had been able to come down on Levophed, but episodes of SVT were noted. Patient was given 6 mg of adenosine and there was some concern for a flutter with 2-1 block. This was monitored until patient had to go back on Levophed therapy. Patient was then placed on amiodarone with some improvement. Patient reports improvement in nausea. Patient continues to have decreased urine output per nursing. No obvious signs of blood loss are reported. Patient remains on a clear diet per surgery recommendations. General: Alert, Oriented x3, Cooperative, No apparent distress, - - Speaking in full sentences. HEENT: Atraumatic, PERRLA, EOMI, Normocephalic, - - No scleral icterus or injection noted. Oral: Moist Mucosa, No Gingival or Mucosal Lesions/ Ulcerations Neck: Supple, No JVD, No Nodes, Trachea Midline Lungs: No rhonchi, No wheeze, No rales, Diminished, - - Symmetric expansion. No dullness to percussion. Cardiovascular: Normal S1, Normal S2, No murmurs, No rub noted, No Gallop, Tachycardic Abdomen: Bowel Sounds Present, Soft, Non Tender, Distended - Slightly, Obese Extremities: No clubbing, No cyanosis, No edema Skin: - - No significant change compared to previous Musculoskeletal: No Tenderness to Palpation of Joints or Extremities Lymphatic: No Cervical, Supraclavicular, or Inguinal Adenopathy Neurological: - - No significant change compared to previous. T4 paraplegia Psych/Mental Status: Normal Affect, Appropriate Vital Signs Temp Pulse Resp BP Pulse Ox 36.7 C 107 H 19 H 119/48 L 95 08/24/17 00:00 08/24/17 06:00 08/24/17 06:00 08/24/17 06:00 08/24/17 06:00 Oxygen Delivery Method Room Air Weight: 95.9 kg Body Mass Index (BMI) 22.6 Intake and Output for Last 24 Hours 08/22/17 08/23/17 08/24/17 23:59 23:59 23:59 Intake Total 4020.5 / 4020.5 2932.1 / 2932.1 205.5 / 205.5 Output Total 525 / 525 800 / 800 150 / 150 Balance 3495.5 / 3495.5 2132.1 / 2132.1 55.5 / 55.5 Labs (Last 48 Hours) 08/22/17 08/22/17 08/22/17 06:36 10:40 11:48 WBC RBC Hgb Hct MCV MCH MCHC RDW RDW Differential Plt Count MPV Immature Gran % (Auto) Neut % (Auto) Lymph % (Auto) [place] % (Auto) Eos % (Auto) Baso % (Auto) Absolute Neuts (auto) Absolute Lymphs (auto) Total Counted Neutrophils % (Manual) Band Neutrophils % Lymphocytes % (Manual) Monocytes % (Manual) Metamyelocytes % Differential Comment Diff Path Review Platelet Estimate Tear Drop Cells [place] Cells Specimen Type ART Sample Site R Radial pH 7.14 L* Bicarbonate Actual 4.0 L POC Total CO2 < 5 Base Excess -25 L O2 Saturation 97 ABG pCO2 11.8 L* ABG pO2 115 H Darrius Test POS O2 Delivery Device Room Air Blood Gas Notified Whom ICU MD Blood Gas Notified Time 634 Sodium Potassium Chloride Carbon Dioxide Anion Gap BUN Creatinine Estim Creat Clear Calc Est GFR (MDRD) Af Amer Est GFR (MDRD) Non-Af BUN/Creatinine Ratio Glucose Lactic Acid 5.6 H* Calcium Phosphorus Magnesium Total Bilirubin AST ALT Alkaline Phosphatase Troponin I Total Protein Albumin Globulin Albumin/Globulin Ratio Vancomycin Trough POC Glucose 122 H 08/22/17 08/22/17 08/23/17 18:14 23:51 04:00 WBC 7.5 RBC 3.62 L Hgb 9.8 L Hct 30.6 L MCV 84.5 MCH 27.1 MCHC 32.0 RDW 15.7 H RDW Differential 47.6 H Plt Count 271 MPV 8.9 Immature Gran % (Auto) DIE HOLDER Neut % (Auto) DIE HOLDER Lymph % (Auto) DIE HOLDER [place] % (Auto) DIE HOLDER Eos % (Auto) DIE HOLDER Baso % (Auto) DIE HOLDER Absolute Neuts (auto) 6.0 Absolute Lymphs (auto) 0.90 Total Counted 100 Neutrophils % (Manual) 52 Band Neutrophils % 28 H Lymphocytes % (Manual) 12 L Monocytes % (Manual) 7 Metamyelocytes % 1 Differential Comment SCANNED Diff Path Review May foll Platelet Estimate ADEQUATE Tear Drop Cells RARE [place] Cells 2+ Specimen Type Sample Site pH Bicarbonate Actual POC Total CO2 Base Excess O2 Saturation ABG pCO2 ABG pO2 Darrius Test O2 Delivery Device Blood Gas Notified Whom Blood Gas Notified Time Sodium Potassium Chloride Carbon Dioxide Anion Gap BUN Creatinine Estim Creat Clear Calc Est GFR (MDRD) Af Amer Est GFR (MDRD) Non-Af BUN/Creatinine Ratio Glucose Lactic Acid Calcium Phosphorus Magnesium Total Bilirubin AST ALT Alkaline Phosphatase Troponin I Total Protein Albumin Globulin Albumin/Globulin Ratio Vancomycin Trough POC Glucose 93 107 08/23/17 08/23/17 08/23/17 04:00 04:00 05:16 WBC RBC Hgb Hct MCV MCH MCHC RDW RDW Differential Plt Count MPV Immature Gran % (Auto) Neut % (Auto) Lymph % (Auto) [place] % (Auto) Eos % (Auto) Baso % (Auto) Absolute Neuts (auto) Absolute Lymphs (auto) Total Counted Neutrophils % (Manual) Band Neutrophils % Lymphocytes % (Manual) Monocytes % (Manual) Metamyelocytes % Differential Comment Diff Path Review Platelet Estimate Tear Drop Cells [place] Cells Specimen Type Sample Site pH Bicarbonate Actual POC Total CO2 Base Excess O2 Saturation ABG pCO2 ABG pO2 Darrius Test O2 Delivery Device Blood Gas Notified Whom Blood Gas Notified Time Sodium 144 Potassium 4.6 Chloride 116 H Carbon Dioxide 12.0 L Anion Gap 16 H BUN 57 H Creatinine 1.98 H Estim Creat Clear Calc 34.31 Est GFR (MDRD) Af Amer 43 L Est GFR (MDRD) Non-Af 35 L BUN/Creatinine Ratio 28.8 H Glucose 119 H Lactic Acid 1.4 Calcium 6.6 L Phosphorus Magnesium Total Bilirubin 0.30 AST 11 L ALT 14 L Alkaline Phosphatase 158 H Troponin I Total Protein 4.6 L Albumin 1.7 L Globulin 2.9 Albumin/Globulin Ratio 0.6 L Vancomycin Trough POC Glucose 109 08/23/17 08/23/17 08/23/17 09:30 12:18 17:24 WBC RBC Hgb Hct MCV MCH MCHC RDW RDW Differential Plt Count MPV Immature Gran % (Auto) Neut % (Auto) Lymph % (Auto) [place] % (Auto) Eos % (Auto) Baso % (Auto) Absolute Neuts (auto) Absolute Lymphs (auto) Total Counted Neutrophils % (Manual) Band Neutrophils % Lymphocytes % (Manual) Monocytes % (Manual) Metamyelocytes % Differential Comment Diff Path Review Platelet Estimate Tear Drop Cells [place] Cells Specimen Type Sample Site pH Bicarbonate Actual POC Total CO2 Base Excess O2 Saturation ABG pCO2 ABG pO2 Darrius Test O2 Delivery Device Blood Gas Notified Whom Blood Gas Notified Time Sodium Potassium Chloride Carbon Dioxide Anion Gap BUN Creatinine Estim Creat Clear Calc Est GFR (MDRD) Af Amer Est GFR (MDRD) Non-Af BUN/Creatinine Ratio Glucose Lactic Acid Calcium Phosphorus Magnesium Total Bilirubin AST ALT Alkaline Phosphatase Troponin I Total Protein Albumin Globulin Albumin/Globulin Ratio Vancomycin Trough 22.0 H POC Glucose 146 H 116 H 08/24/17 08/24/17 08/24/17 00:36 00:40 03:40 WBC RBC Hgb Hct MCV MCH MCHC RDW RDW Differential Plt Count MPV Immature Gran % (Auto) Neut % (Auto) Lymph % (Auto) [place] % (Auto) Eos % (Auto) Baso % (Auto) Absolute Neuts (auto) Absolute Lymphs (auto) Total Counted Neutrophils % (Manual) Band Neutrophils % Lymphocytes % (Manual) Monocytes % (Manual) Metamyelocytes % Differential Comment Diff Path Review Platelet Estimate Tear Drop Cells [place] Cells Specimen Type Sample Site pH Bicarbonate Actual POC Total CO2 Base Excess O2 Saturation ABG pCO2 ABG pO2 Darrius Test O2 Delivery Device Blood Gas Notified Whom Blood Gas Notified Time Sodium Potassium Chloride Carbon Dioxide Anion Gap BUN Creatinine Estim Creat Clear Calc Est GFR (MDRD) Af Amer Est GFR (MDRD) Non-Af BUN/Creatinine Ratio Glucose Lactic Acid Calcium Phosphorus Magnesium 1.7 Total Bilirubin AST ALT Alkaline Phosphatase Troponin I 0.018 < 0.015 Total Protein Albumin Globulin Albumin/Globulin Ratio Vancomycin Trough POC Glucose 143 H 08/24/17 08/24/17 08/24/17 03:45 03:45 03:45 WBC 6.0 RBC 3.28 L Hgb 8.8 L Hct 27.5 L MCV 83.8 MCH 26.8 L MCHC 32.0 RDW 16.2 H RDW Differential 49.7 H Plt Count 195 MPV 9.0 Immature Gran % (Auto) 0.200 Neut % (Auto) 78.9 H Lymph % (Auto) 11.8 L [place] % (Auto) 8.2 Eos % (Auto) 0.7 Baso % (Auto) 0.2 Absolute Neuts (auto) 4.7 Absolute Lymphs (auto) 0.70 L Total Counted Not Reportable Neutrophils % (Manual) Band Neutrophils % Lymphocytes % (Manual) Monocytes % (Manual) Metamyelocytes % Differential Comment SCANNED Diff Path Review Platelet Estimate Tear Drop Cells [place] Cells Specimen Type Sample Site pH Bicarbonate Actual POC Total CO2 Base Excess O2 Saturation ABG pCO2 ABG pO2 Darrius Test O2 Delivery Device Blood Gas Notified Whom Blood Gas Notified Time Sodium 143 Potassium 3.5 Chloride 116 H Carbon Dioxide 13.0 L Anion Gap 14 BUN 60 H Creatinine 2.26 H Estim Creat Clear Calc 30.06 Est GFR (MDRD) Af Amer 37 L Est GFR (MDRD) Non-Af 30 L BUN/Creatinine Ratio 26.5 H Glucose 151 H Lactic Acid Calcium 6.2 L* Phosphorus 4.6 Magnesium Total Bilirubin AST ALT Alkaline Phosphatase Troponin I Total Protein Albumin Globulin Albumin/Globulin Ratio Vancomycin Trough POC Glucose 08/24/17 08/24/17 05:09 06:40 WBC RBC Hgb Hct MCV MCH MCHC RDW RDW Differential Plt Count MPV Immature Gran % (Auto) Neut % (Auto) Lymph % (Auto) [place] % (Auto) Eos % (Auto) Baso % (Auto) Absolute Neuts (auto) Absolute Lymphs (auto) Total Counted Neutrophils % (Manual) Band Neutrophils % Lymphocytes % (Manual) Monocytes % (Manual) Metamyelocytes % Differential Comment Diff Path Review Platelet Estimate Tear Drop Cells [place] Cells Specimen Type Sample Site pH Bicarbonate Actual POC Total CO2 Base Excess O2 Saturation ABG pCO2 ABG pO2 Darrius Test O2 Delivery Device Blood Gas Notified Whom Blood Gas Notified Time Sodium Potassium Chloride Carbon Dioxide Anion Gap BUN Creatinine Estim Creat Clear Calc Est GFR (MDRD) Af Amer Est GFR (MDRD) Non-Af BUN/Creatinine Ratio Glucose Lactic Acid Calcium Phosphorus Magnesium Cancelled Total Bilirubin AST ALT Alkaline Phosphatase Troponin I Cancelled Total Protein Albumin Globulin Albumin/Globulin Ratio Vancomycin Trough POC Glucose 145 H Microbiology 08/21/17 23:00 Wound - Buttock Gram Stain - Final 08/21/17 23:00 Wound - Buttock Wound Culture - Preliminary GNR lactose dinkey operator slate Gram negative selwyn Alpha hemolytic organism 08/21/17 19:30 Urine, Catheterized Urine Culture - Preliminary Culture exhibits no growth. Clinical Impression(s) from Imaging Studies Renal Ultrasound 08/23/17 10:02 IMPRESSION: There is atrophy of the left kidney with hydronephrosis, as demonstrated on the recent CT. The right kidney is normal in size and echogenicity without hydronephrosis. 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 Wean pressors as tolerated 2. Continue current antibiotics until cultures resulted 3. Fluid boluses as necessary 4. Titrate Levophed to keep map greater than 65 5. Consult wound team 6. Cardiology consultation 7. Possible renal consultation IMPRESSIONS: 1. Suspected septic shock secondary to gram-negative wound infection Patient's wound culture is growing a gram-negative selwyn. This is likely the source of patient's decompensation. Patient was off of Levophed therapy for a short time overnight. However, SVT appears to be problematic leading to reinitiation of low-dose. Will attempt to give a fluid bolus. Patient is currently on amiodarone. 2. Severe lactic acidosis/anion gap metabolic acidosis Patient with significant lactic acidosis that appears to be improving with the use of pressor agents. Patient's respiratory status has significantly improved compared to previous. Lactates have normalized. Patient does not have any anion gap at this time, but renal function continues to worsen. 3. Constipation Patient did present with Lomotil and constipation. Unclear if patient had issues with bowel ischemia secondary to constipation. Patient is having liquid bowel movements at this time. Surgery is currently following. Continue to monitor closely. 4. Acute kidney injury/hyperkalemia/hypocalcemia Likely secondary to septic shock versus contrast induced nephropathy. Patient's creatinine is not very impressive as an individual value, but given paraplegia, baseline creatinine is approximately 0.6. Patient did receive a fluid bolus yesterday secondary to decreased urine output with some response. We will continue to bolus with fluids if necessary. P.o. intake per surgery. Patient did receive a CT of the abdomen with contrast will hypotensive to evaluate for possible GI source. 5. Diabetes mellitus type 2/hypothyroidism/T4 paraplegia/poor history Complicates care, management, recovery and prognosis. Blood sugars well controlled on current regimen. 6. Paroxysmal SVT Patient has been in sinus tachycardia most of the time. However, periodic episodes of SVT with rates in the 150s have been noted. Clinical concern for a flutter with 2-1 block. Will obtain an echocardiogram and a cardiology consult. Patient currently on amiodarone, but it is unclear if this needs to be continued. Electrolytes are unremarkable when corrected for albumin. Troponin series was negative. TIME: 33 minutes of critical care time spent addressing patient's septic shock, acute kidney injury, review of all data and collaboration with care team. (5:30 AM to 6:30 AM) Code Visit [id number]: [id number] Critical care first hour
--- NOTE | 2017-08-24 06:26 | PN_ITS ---
Subjective: Patient with issues overnight. Patient had been able to come down on Levophed, but episodes of SVT were noted. Patient was given 6 mg of adenosine and there was some concern for a flutter with 2-1 block. This was monitored until patient had to go back on Levophed therapy. Patient was then placed on amiodarone with some improvement. Patient reports improvement in nausea. Patient continues to have decreased urine output per nursing. No obvious signs of blood loss are reported. Patient remains on a clear diet per surgery recommendations. General: Alert, Oriented x3, Cooperative, No apparent distress, - - Speaking in full sentences. HEENT: Atraumatic, PERRLA, EOMI, Normocephalic, - - No scleral icterus or injection noted. Oral: Moist Mucosa, No Gingival or Mucosal Lesions/ Ulcerations Neck: Supple, No JVD, No Nodes, Trachea Midline Lungs: No rhonchi, No wheeze, No rales, Diminished, - - Symmetric expansion. No dullness to percussion. Cardiovascular: Normal S1, Normal S2, No murmurs, No rub noted, No Gallop, Tachycardic Abdomen: Bowel Sounds Present, Soft, Non Tender, Distended - Slightly, Obese Extremities: No clubbing, No cyanosis, No edema Skin: - - No significant change compared to previous Musculoskeletal: No Tenderness to Palpation of Joints or Extremities Lymphatic: No Cervical, Supraclavicular, or Inguinal Adenopathy Neurological: - - No significant change compared to previous. T4 paraplegia Psych/Mental Status: Normal Affect, Appropriate Vital Signs Temp Pulse Resp BP Pulse Ox 36.7 C 107 H 19 H 119/48 L 95 08/24/17 00:00 08/24/17 06:00 08/24/17 06:00 08/24/17 06:00 08/24/17 06:00 Oxygen Delivery Method Room Air Weight: 95.9 kg Body Mass Index (BMI) 22.6 Intake and Output for Last 24 Hours 08/22/17 08/23/17 08/24/17 23:59 23:59 23:59 Intake Total 4020.5 / 4020.5 2932.1 / 2932.1 205.5 / 205.5 Output Total 525 / 525 800 / 800 150 / 150 Balance 3495.5 / 3495.5 2132.1 / 2132.1 55.5 / 55.5 Labs (Last 48 Hours) 08/22/17 08/22/17 08/22/17 06:36 10:40 11:48 WBC RBC Hgb Hct MCV MCH MCHC RDW RDW Differential Plt Count MPV Immature Gran % (Auto) Neut % (Auto) Lymph % (Auto) [place] % (Auto) Eos % (Auto) Baso % (Auto) Absolute Neuts (auto) Absolute Lymphs (auto) Total Counted Neutrophils % (Manual) Band Neutrophils % Lymphocytes % (Manual) Monocytes % (Manual) Metamyelocytes % Differential Comment Diff Path Review Platelet Estimate Tear Drop Cells [place] Cells Specimen Type ART Sample Site R Radial pH 7.14 L* Bicarbonate Actual 4.0 L POC Total CO2 < 5 Base Excess -25 L O2 Saturation 97 ABG pCO2 11.8 L* ABG pO2 115 H Darrius Test POS O2 Delivery Device Room Air Blood Gas Notified Whom ICU MD Blood Gas Notified Time 634 Sodium Potassium Chloride Carbon Dioxide Anion Gap BUN Creatinine Estim Creat Clear Calc Est GFR (MDRD) Af Amer Est GFR (MDRD) Non-Af BUN/Creatinine Ratio Glucose Lactic Acid 5.6 H* Calcium Phosphorus Magnesium Total Bilirubin AST ALT Alkaline Phosphatase Troponin I Total Protein Albumin Globulin Albumin/Globulin Ratio Vancomycin Trough POC Glucose 122 H 08/22/17 08/22/17 08/23/17 18:14 23:51 04:00 WBC 7.5 RBC 3.62 L Hgb 9.8 L Hct 30.6 L MCV 84.5 MCH 27.1 MCHC 32.0 RDW 15.7 H RDW Differential 47.6 H Plt Count 271 MPV 8.9 Immature Gran % (Auto) [employer]IEF [employer]UTION ARCHITECT Neut % (Auto) CHIEF SOLUTION ARCHITECT Lymph % (Auto) CHIEF SOLUTION ARCHITECT [place] % (Auto) CHIEF SOLUTION ARCHITECT Eos % (Auto) CHIEF SOLUTION ARCHITECT Baso % (Auto) CHIEF SOLUTION ARCHITECT Absolute Neuts (auto) 6.0 Absolute Lymphs (auto) 0.90 Total Counted 100 Neutrophils % (Manual) 52 Band Neutrophils % 28 H Lymphocytes % (Manual) 12 L Monocytes % (Manual) 7 Metamyelocytes % 1 Differential Comment SCANNED Diff Path Review May foll Platelet Estimate ADEQUATE Tear Drop Cells RARE [place] Cells 2+ Specimen Type Sample Site pH Bicarbonate Actual POC Total CO2 Base Excess O2 Saturation ABG pCO2 ABG pO2 Darrius Test O2 Delivery Device Blood Gas Notified Whom Blood Gas Notified Time Sodium Potassium Chloride Carbon Dioxide Anion Gap BUN Creatinine Estim Creat Clear Calc Est GFR (MDRD) Af Amer Est GFR (MDRD) Non-Af BUN/Creatinine Ratio Glucose Lactic Acid Calcium Phosphorus Magnesium Total Bilirubin AST ALT Alkaline Phosphatase Troponin I Total Protein Albumin Globulin Albumin/Globulin Ratio Vancomycin Trough POC Glucose 93 107 08/23/17 08/23/17 08/23/17 04:00 04:00 05:16 WBC RBC Hgb Hct MCV MCH MCHC RDW RDW Differential Plt Count MPV Immature Gran % (Auto) Neut % (Auto) Lymph % (Auto) [place] % (Auto) Eos % (Auto) Baso % (Auto) Absolute Neuts (auto) Absolute Lymphs (auto) Total Counted Neutrophils % (Manual) Band Neutrophils % Lymphocytes % (Manual) Monocytes % (Manual) Metamyelocytes % Differential Comment Diff Path Review Platelet Estimate Tear Drop Cells [place] Cells Specimen Type Sample Site pH Bicarbonate Actual POC Total CO2 Base Excess O2 Saturation ABG pCO2 ABG pO2 Darrius Test O2 Delivery Device Blood Gas Notified Whom Blood Gas Notified Time Sodium 144 Potassium 4.6 Chloride 116 H Carbon Dioxide 12.0 L Anion Gap 16 H BUN 57 H Creatinine 1.98 H Estim Creat Clear Calc 34.31 Est GFR (MDRD) Af Amer 43 L Est GFR (MDRD) Non-Af 35 L BUN/Creatinine Ratio 28.8 H Glucose 119 H Lactic Acid 1.4 Calcium 6.6 L Phosphorus Magnesium Total Bilirubin 0.30 AST 11 L ALT 14 L Alkaline Phosphatase 158 H Troponin I Total Protein 4.6 L Albumin 1.7 L Globulin 2.9 Albumin/Globulin Ratio 0.6 L Vancomycin Trough POC Glucose 109 08/23/17 08/23/17 08/23/17 09:30 12:18 17:24 WBC RBC Hgb Hct MCV MCH MCHC RDW RDW Differential Plt Count MPV Immature Gran % (Auto) Neut % (Auto) Lymph % (Auto) [place] % (Auto) Eos % (Auto) Baso % (Auto) Absolute Neuts (auto) Absolute Lymphs (auto) Total Counted Neutrophils % (Manual) Band Neutrophils % Lymphocytes % (Manual) Monocytes % (Manual) Metamyelocytes % Differential Comment Diff Path Review Platelet Estimate Tear Drop Cells [place] Cells Specimen Type Sample Site pH Bicarbonate Actual POC Total CO2 Base Excess O2 Saturation ABG pCO2 ABG pO2 Darrius Test O2 Delivery Device Blood Gas Notified Whom Blood Gas Notified Time Sodium Potassium Chloride Carbon Dioxide Anion Gap BUN Creatinine Estim Creat Clear Calc Est GFR (MDRD) Af Amer Est GFR (MDRD) Non-Af BUN/Creatinine Ratio Glucose Lactic Acid Calcium Phosphorus Magnesium Total Bilirubin AST ALT Alkaline Phosphatase Troponin I Total Protein Albumin Globulin Albumin/Globulin Ratio Vancomycin Trough 22.0 H POC Glucose 146 H 116 H 08/24/17 08/24/17 08/24/17 00:36 00:40 03:40 WBC RBC Hgb Hct MCV MCH MCHC RDW RDW Differential Plt Count MPV Immature Gran % (Auto) Neut % (Auto) Lymph % (Auto) [place] % (Auto) Eos % (Auto) Baso % (Auto) Absolute Neuts (auto) Absolute Lymphs (auto) Total Counted Neutrophils % (Manual) Band Neutrophils % Lymphocytes % (Manual) Monocytes % (Manual) Metamyelocytes % Differential Comment Diff Path Review Platelet Estimate Tear Drop Cells [place] Cells Specimen Type Sample Site pH Bicarbonate Actual POC Total CO2 Base Excess O2 Saturation ABG pCO2 ABG pO2 Darrius Test O2 Delivery Device Blood Gas Notified Whom Blood Gas Notified Time Sodium Potassium Chloride Carbon Dioxide Anion Gap BUN Creatinine Estim Creat Clear Calc Est GFR (MDRD) Af Amer Est GFR (MDRD) Non-Af BUN/Creatinine Ratio Glucose Lactic Acid Calcium Phosphorus Magnesium 1.7 Total Bilirubin AST ALT Alkaline Phosphatase Troponin I 0.018 < 0.015 Total Protein Albumin Globulin Albumin/Globulin Ratio Vancomycin Trough POC Glucose 143 H 08/24/17 08/24/17 08/24/17 03:45 03:45 03:45 WBC 6.0 RBC 3.28 L Hgb 8.8 L Hct 27.5 L MCV 83.8 MCH 26.8 L MCHC 32.0 RDW 16.2 H RDW Differential 49.7 H Plt Count 195 MPV 9.0 Immature Gran % (Auto) 0.200 Neut % (Auto) 78.9 H Lymph % (Auto) 11.[address] [place] % (Auto) 8.2 Eos % (Auto) 0.7 Baso % (Auto) 0.2 Absolute Neuts (auto) 4.7 Absolute Lymphs (auto) 0.70 L Total Counted Not Reportable Neutrophils % (Manual) Band Neutrophils % Lymphocytes % (Manual) Monocytes % (Manual) Metamyelocytes % Differential Comment SCANNED Diff Path Review Platelet Estimate Tear Drop Cells [place] Cells Specimen Type Sample Site pH Bicarbonate Actual POC Total CO2 Base Excess O2 Saturation ABG pCO2 ABG pO2 Darrius Test O2 Delivery Device Blood Gas Notified Whom Blood Gas Notified Time Sodium 143 Potassium 3.5 Chloride 116 H Carbon Dioxide 13.0 L Anion Gap 14 BUN 60 H Creatinine 2.26 H Estim Creat Clear Calc 30.06 Est GFR (MDRD) Af Amer 37 L Est GFR (MDRD) Non-Af 30 L BUN/Creatinine Ratio 26.5 H Glucose 151 H Lactic Acid Calcium 6.2 L* Phosphorus 4.6 Magnesium Total Bilirubin AST ALT Alkaline Phosphatase Troponin I Total Protein Albumin Globulin Albumin/Globulin Ratio Vancomycin Trough POC Glucose 08/24/17 08/24/17 05:09 06:40 WBC RBC Hgb Hct MCV MCH MCHC RDW RDW Differential Plt Count MPV Immature Gran % (Auto) Neut % (Auto) Lymph % (Auto) [place] % (Auto) Eos % (Auto) Baso % (Auto) Absolute Neuts (auto) Absolute Lymphs (auto) Total Counted Neutrophils % (Manual) Band Neutrophils % Lymphocytes % (Manual) Monocytes % (Manual) Metamyelocytes % Differential Comment Diff Path Review Platelet Estimate Tear Drop Cells [place] Cells Specimen Type Sample Site pH Bicarbonate Actual POC Total CO2 Base Excess O2 Saturation ABG pCO2 ABG pO2 Darrius Test O2 Delivery Device Blood Gas Notified Whom Blood Gas Notified Time Sodium Potassium Chloride Carbon Dioxide Anion Gap BUN Creatinine Estim Creat Clear Calc Est GFR (MDRD) Af Amer Est GFR (MDRD) Non-Af BUN/Creatinine Ratio Glucose Lactic Acid Calcium Phosphorus Magnesium Cancelled Total Bilirubin AST ALT Alkaline Phosphatase Troponin I Cancelled Total Protein Albumin Globulin Albumin/Globulin Ratio Vancomycin Trough POC Glucose 145 H Microbiology 08/21/17 23:00 Wound - Buttock Gram Stain - Final 08/21/17 23:00 Wound - Buttock Wound Culture - Preliminary GNR lactose hand splitter Gram negative selwyn Alpha hemolytic organism 08/21/17 19:30 Urine, Catheterized Urine Culture - Preliminary Culture exhibits no growth. Clinical Impression(s) from Imaging Studies Renal Ultrasound 08/23/17 10:02 IMPRESSION: There is atrophy of the left kidney with hydronephrosis, as demonstrated on the recent CT. The right kidney is normal in size and echogenicity without hydronephrosis. Electronically Signed: Bell Kapoor MD at 20:08 EDT Tel Direct: [phone], Service support , Medical Necessity - Tobacco Use Smoking Status: Never smoker Assessment/Plan All Active Problems Abdominal pain (Acute) History of right above knee amputation (Acute) Septic shock (Acute) Pressure ulcer of sacral region, stage 3 (Acute) Scrotal ulcer (Acute) 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 (Acute) Complicated UTI (urinary tract infection) (Acute) Constipation (Acute) Pressure ulcer of perianal region (Resolved) Pressure ulcer of buttock (Resolved) UTI (urinary tract infection) (Acute) RECOMMENDATIONS: 1. Wean pressors as tolerated 2. Continue current antibiotics until cultures resulted 3. Fluid boluses as necessary 4. Titrate Levophed to keep map greater than 65 5. Consult wound team 6. Cardiology consultation 7. Possible renal consultation IMPRESSIONS: 1. Suspected septic shock secondary to gram-negative wound infection Patient's wound culture is growing a gram-negative selwyn. This is likely the source of patient's decompensation. Patient was off of Levophed therapy for a short time overnight. However, SVT appears to be problematic leading to reinitiation of low-dose. Will attempt to give a fluid bolus. Patient is currently on amiodarone. 2. Severe lactic acidosis/anion gap metabolic acidosis Patient with significant lactic acidosis that appears to be improving with the use of pressor agents. Patient's respiratory status has significantly improved compared to previous. Lactates have normalized. Patient does not have any anion gap at this time, but renal function continues to worsen. 3. Constipation Patient did present with Lomotil and constipation. Unclear if patient had issues with bowel ischemia secondary to constipation. Patient is having liquid bowel movements at this time. Surgery is currently following. Continue to monitor closely. 4. Acute kidney injury/hyperkalemia/hypocalcemia Likely secondary to septic shock versus contrast induced nephropathy. Patient's creatinine is not very impressive as an individual value, but given paraplegia, baseline creatinine is approximately 0.6. Patient did receive a fluid bolus yesterday secondary to decreased urine output with some response. We will continue to bolus with fluids if necessary. P.o. intake per surgery. Patient did receive a CT of the abdomen with contrast will hypotensive to evaluate for possible GI source. 5. Diabetes mellitus type 2/hypothyroidism/T4 paraplegia/poor history Complicates care, management, recovery and prognosis. Blood sugars well controlled on current regimen. 6. Paroxysmal SVT Patient has been in sinus tachycardia most of the time. However, periodic episodes of SVT with rates in the 150s have been noted. Clinical concern for a flutter with 2-1 block. Will obtain an echocardiogram and a cardiology consult. Patient currently on amiodarone, but it is unclear if this needs to be continued. Electrolytes are unremarkable when corrected for albumin. Troponin series was negative. TIME: 33 minutes of critical care time spent addressing patient's septic shock, acute kidney injury, review of all data and collaboration with care team. (5: 30 AM to 6:30 AM) Code Visit [id number]: [id number] Critical care first hour
[2017-08-24] MEDS: Levothyroxine 25 MCG TABLET PO (06:29)
[2017-08-24] MEDS: Lactated Ringers 1,000 ML 999 ML IV (06:29)
[2017-08-24] MEDS: Sucralfate 1 GM Tablet PO ×3 (06:29→22:06)
[2017-08-24] MEDS: Dicyclomine 10 MG Capsule PO ×2 (06:29→10:32)
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
--- NOTE | 2017-08-24 09:18 | PCM.PN.SRG ---
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 (Acute) Complicated UTI (urinary tract infection) (Acute) Constipation (Acute) Subjective: Tolerating clears, last night's events of SVT noted, still having positive bowel function yesterday, diarrhea - Physical Exam General: Alert, Oriented x3, Cooperative, No apparent distress Abdomen: Soft, Non Tender, Non-Distended, - - No guarding or rebound, urostomy pink, reducible ventral hernia Vital Signs Temp Pulse Resp BP Pulse Ox 98.4 F 103 H 23 H 108/64 99 08/24/17 08:59 08/24/17 08:59 08/24/17 08:59 08/24/17 08:59 08/24/17 08:59 Oxygen Delivery Method Room Air Weight: 211 lb 6.773 oz Body Mass Index (BMI) 22.6 Intake and Output for Last 24 Hours 08/22/17 08/23/17 08/24/17 23:59 23:59 23:59 Intake Total 4020.5 / 4020.5 2932.1 / 2932.1 205.5 / 205.5 Output Total 525 / 525 800 / 800 150 / 150 Balance 3495.5 / 3495.5 2132.1 / 2132.1 55.5 / 55.5 Microbiology Past 72 Hours 08/21/17 23:00 Gram Stain - Final Wound - Buttock Wound Culture - Preliminary GNR lactose cement finisher Gram negative selwyn Alpha hemolytic organism 08/21/17 19:30 Urine Culture - Preliminary Urine, Catheterized Culture exhibits no growth. 08/21/17 19:30 C. difficile DNA Amplification - Final Stool Laboratory Tests Past 24 Hrs 08/23/17 08/24/17 08/24/17 09:30 00:40 03:40 WBC RBC Hgb Hct MCV MCH MCHC RDW RDW Differential Plt Count MPV Immature Gran % (Auto) Neut % (Auto) Lymph % (Auto) [place] % (Auto) Eos % (Auto) Baso % (Auto) Absolute Neuts (auto) Absolute Lymphs (auto) Total Counted Differential Comment Sodium Potassium Chloride Carbon Dioxide Anion Gap BUN Creatinine Estim Creat Clear Calc Est GFR (MDRD) Af Amer Est GFR (MDRD) Non-Af BUN/Creatinine Ratio Glucose Calcium Phosphorus Magnesium 1.7 Troponin I 0.018 < 0.015 Vancomycin Trough 22.0 H 08/24/17 08/24/17 08/24/17 03:45 03:45 03:45 WBC 6.0 RBC 3.28 L Hgb 8.8 L Hct 27.5 L MCV 83.8 MCH 26.8 L MCHC 32.0 RDW 16.2 H RDW Differential 49.7 H Plt Count 195 MPV 9.0 Immature Gran % (Auto) 0.200 Neut % (Auto) 78.9 H Lymph % (Auto) 11.8 L [place] % (Auto) 8.2 Eos % (Auto) 0.7 Baso % (Auto) 0.2 Absolute Neuts (auto) 4.7 Absolute Lymphs (auto) 0.70 L Total Counted Not Reportable Differential Comment SCANNED Sodium 143 Potassium 3.5 Chloride 116 H Carbon Dioxide 13.0 L Anion Gap 14 BUN 60 H Creatinine 2.26 H Estim Creat Clear Calc 30.06 Est GFR (MDRD) Af Amer 37 L Est GFR (MDRD) Non-Af 30 L BUN/Creatinine Ratio 26.5 H Glucose 151 H Calcium 6.2 L* Phosphorus 4.6 Magnesium Troponin I Vancomycin Trough 08/24/17 06:40 WBC RBC Hgb Hct MCV MCH MCHC RDW RDW Differential Plt Count MPV Immature Gran % (Auto) Neut % (Auto) Lymph % (Auto) [place] % (Auto) Eos % (Auto) Baso % (Auto) Absolute Neuts (auto) Absolute Lymphs (auto) Total Counted Differential Comment Sodium Potassium Chloride Carbon Dioxide Anion Gap BUN Creatinine Estim Creat Clear Calc Est GFR (MDRD) Af Amer Est GFR (MDRD) Non-Af BUN/Creatinine Ratio Glucose Calcium Phosphorus Magnesium Cancelled Troponin I Cancelled Vancomycin Trough POC Glucose 08/24/17 08/24/17 08/23/17 05:09 00:36 17:24 POC Glucose 145 H 143 H 116 H 08/23/17 12:18 POC Glucose 146 H Medical Necessity - Tobacco Use Smoking Status: Never smoker Assessment/Plan All Active Problems Abdominal pain (Acute) History of right above knee amputation (Acute) Acute kidney injury (Acute) Septic shock (Acute) Pressure ulcer of sacral region, stage 3 (Acute) Scrotal ulcer (Acute) 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 The patient is having sepsis and his lactic acid is within normal limits. His pressor requirements were off yesterday until his episode of SVT currently on low-dose. His abdomen is soft, nontender, nondistended. He has had several bowel movements and the pain has subsided, do not think that his abdomen is a source of his sepsis. 2. Continue broad-spectrum antibiotics and pressor support per health data analyst. Blood cultures pending. If things change CT can be repeated but there are currently no surgical indications or signs or symptoms pointing to the abdomen. 3. Continue clears --if patient is medically stabilized would consider trying to repeat his colonoscopy from last June, which was not successful even after 2 day prep if the patient is agreeable and able to be prepped. However if patient is septic from his infected sacral wound and he continues to have diarrhea and we are unable to control this diarrhea he could possibly benefit from a diverting/permanent colostomy this has also previously been discussed with the patient last June. --attempted to also d/w his daughter, Ivone- however only got her VM. Katherin Isidro M.D. Pager: [phone] [facility] [address] [place] [address], [facility], [address] [place] [address] Office: [phone]
--- NOTE | 2017-08-24 09:22 | PN.SURG_ITS ---
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 (Acute) Complicated UTI (urinary tract infection) (Acute) Constipation (Acute) Subjective: Tolerating clears, last night's events of SVT noted, still having positive bowel function yesterday, diarrhea - Physical Exam General: Alert, Oriented x3, Cooperative, No apparent distress Abdomen: Soft, Non Tender, Non-Distended, - - No guarding or rebound, urostomy pink, reducible ventral hernia Vital Signs Temp Pulse Resp BP Pulse Ox 98.4 F 103 H 23 H 108/64 99 08/24/17 08:59 08/24/17 08:59 08/24/17 08:59 08/24/17 08:59 08/24/17 08:59 Oxygen Delivery Method Room Air Weight: 211 lb 6.773 oz Body Mass Index (BMI) 22.6 Intake and Output for Last 24 Hours 08/22/17 08/23/17 08/24/17 23:59 23:59 23:59 Intake Total 4020.5 / 4020.5 2932.1 / 2932.1 205.5 / 205.5 Output Total 525 / 525 800 / 800 150 / 150 Balance 3495.5 / 3495.5 2132.1 / 2132.1 55.5 / 55.5 Microbiology Past 72 Hours 08/21/17 23:00 Gram Stain - Final Wound - Buttock Wound Culture - Preliminary GNR lactose college or university faculty member Gram negative selwyn Alpha hemolytic organism 08/21/17 19:30 Urine Culture - Preliminary Urine, Catheterized Culture exhibits no growth. 08/21/17 19:30 C. difficile DNA Amplification - Final Stool Laboratory Tests Past 24 Hrs 08/23/17 08/24/17 08/24/17 09:30 00:40 03:40 WBC RBC Hgb Hct MCV MCH MCHC RDW RDW Differential Plt Count MPV Immature Gran % (Auto) Neut % (Auto) Lymph % (Auto) [place] % (Auto) Eos % (Auto) Baso % (Auto) Absolute Neuts (auto) Absolute Lymphs (auto) Total Counted Differential Comment Sodium Potassium Chloride Carbon Dioxide Anion Gap BUN Creatinine Estim Creat Clear Calc Est GFR (MDRD) Af Amer Est GFR (MDRD) Non-Af BUN/Creatinine Ratio Glucose Calcium Phosphorus Magnesium 1.7 Troponin I 0.018 < 0.015 Vancomycin Trough 22.0 H 08/24/17 08/24/17 08/24/17 03:45 03:45 03:45 WBC 6.0 RBC 3.28 L Hgb 8.8 L Hct 27.5 L MCV 83.8 MCH 26.8 L MCHC 32.0 RDW 16.2 H RDW Differential 49.7 H Plt Count 195 MPV 9.0 Immature Gran % (Auto) 0.200 Neut % (Auto) 78.9 H Lymph % (Auto) 11.[address] [place] % (Auto) 8.2 Eos % (Auto) 0.7 Baso % (Auto) 0.2 Absolute Neuts (auto) 4.7 Absolute Lymphs (auto) 0.70 L Total Counted Not Reportable Differential Comment SCANNED Sodium 143 Potassium 3.5 Chloride 116 H Carbon Dioxide 13.0 L Anion Gap 14 BUN 60 H Creatinine 2.26 H Estim Creat Clear Calc 30.06 Est GFR (MDRD) Af Amer 37 L Est GFR (MDRD) Non-Af 30 L BUN/Creatinine Ratio 26.5 H Glucose 151 H Calcium 6.2 L* Phosphorus 4.6 Magnesium Troponin I Vancomycin Trough 08/24/17 06:40 WBC RBC Hgb Hct MCV MCH MCHC RDW RDW Differential Plt Count MPV Immature Gran % (Auto) Neut % (Auto) Lymph % (Auto) [place] % (Auto) Eos % (Auto) Baso % (Auto) Absolute Neuts (auto) Absolute Lymphs (auto) Total Counted Differential Comment Sodium Potassium Chloride Carbon Dioxide Anion Gap BUN Creatinine Estim Creat Clear Calc Est GFR (MDRD) Af Amer Est GFR (MDRD) Non-Af BUN/Creatinine Ratio Glucose Calcium Phosphorus Magnesium Cancelled Troponin I Cancelled Vancomycin Trough POC Glucose 08/24/17 08/24/17 08/23/17 05:09 00:36 17:24 POC Glucose 145 H 143 H 116 H 08/23/17 12:18 POC Glucose 146 H Medical Necessity - Tobacco Use Smoking Status: Never smoker Assessment/Plan All Active Problems Abdominal pain (Acute) History of right above knee amputation (Acute) Acute kidney injury (Acute) Septic shock (Acute) Pressure ulcer of sacral region, stage 3 (Acute) Scrotal ulcer (Acute) 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 The patient is having sepsis and his lactic acid is within normal limits. His pressor requirements were off yesterday until his episode of SVT currently on low-dose. His abdomen is soft, nontender, nondistended. He has had several bowel movements and the pain has subsided, do not think that his abdomen is a source of his sepsis. 2. Continue broad-spectrum antibiotics and pressor support per office machine servicer. Blood cultures pending. If things change CT can be repeated but there are currently no surgical indications or signs or symptoms pointing to the abdomen. 3. Continue clears --if patient is medically stabilized would consider trying to repeat his colonoscopy from last June, which was not successful even after 2 day prep if the patient is agreeable and able to be prepped. However if patient is septic from his infected sacral wound and he continues to have diarrhea and we are unable to control this diarrhea he could possibly benefit from a diverting/permanent colostomy this has also previously been discussed with the patient last June. --attempted to also d/w his daughter, Ivone- however only got her VM. Katherin Isidro M.D. Pager: [phone] [facility] [address] [place] [address], [facility], [address] [place] [address] Office: [phone]
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
[2017-08-24] MEDS: CHLORHEXIDINE GLUC 2% CLOTH 1 EACH TOWELETTE TOPICAL (10:30)
[2017-08-24] MEDS: Menthol/Lanolin/Calamine/Znox 113 GM Tube 1 APPLIC TOPICAL ×2 (10:30→22:05)
[2017-08-24] MEDS: Enoxaparin 40 MG/0.4 ML Syringe SC (10:32)
[2017-08-24] MEDS: Pantoprazole Sodium 40 MG Tablet PO (10:32)
[2017-08-24] MEDS: Ascorbic Acid 500 MG Tablet 1000 MG PO (10:32)
[2017-08-24 11:41] LABS: Vancomycin, Random Level 17.8 ug/mL (0.0-15.0)
[2017-08-24 12:06] LABS: Bedside Glucose 174 mg/dL (70-110)
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
--- NOTE | 2017-08-24 17:00 | PCM.RX.CS ---
Consult Pharmacy has been consulted to manage selected antiobiotic: Vancomycin Type of Consult: Follow-up Suspected Infection: Sepsis Labs: Sodium 143 mmol/L (136-145) 08/24/17 03:45 Potassium 3.5 mmol/L (3.5-5.1) 08/24/17 03:45 Chloride 116 mmol/L (98-107) H 08/24/17 03:45 Carbon Dioxide 13.0 mmol/L (21.0-32.0) L 08/24/17 03:45 Anion Gap 14 (5-15) 08/24/17 03:45 BUN 60 mg/dL (7-18) H 08/24/17 03:45 Creatinine 2.26 mg/dL (0.70-1.30) H 08/24/17 03:45 Est GFR (MDRD) Af Amer 37 mL/min (>60) L 08/24/17 03:45 Est GFR (MDRD) Non-Af 30 mL/min (>60) L 08/24/17 03:45 BUN/Creatinine Ratio 26.5 RATIO (10-20) H 08/24/17 03:45 Glucose 151 mg/dL (74-106) H 08/24/17 03:45 Vancomycin Trough 22.0 ug/mL (5.0-15.0) H 08/23/17 09:30 Random Vancomycin 17.8 ug/mL (0.0-15.0) H 08/24/17 10:50 Microbiology: Microbiology 08/21/17 23:00 Wound - Buttock Gram Stain - Final 08/21/17 23:00 Wound - Buttock Wound Culture - Preliminary GNR lactose tire layer GNR lactose tire layer#2 Gram negative selwyn Gram positive selwyn 08/21/17 19:30 Urine, Catheterized Urine Culture - Final Culture exhibits no growth. 08/21/17 19:30 Stool C. difficile DNA Amplification - Final Weight used for dosin.6 kg Estimated Creatinine Clearance: 30 ML/MIN Goal Trough: 10-15 mcg/mL Pharmacy Plan for Drug Dosing: Review of labs shows Cr increasing from 1.98 to 2.26 on 08.24.17. Vancomycin random level 17.8 this AM (goal 10-15). Will decrease vancomycin to 500mg iv q24h and get another random level 7.16.18 @0930. Pharmacy Service will continue to monitor and adjust dosing as required.
--- NOTE | 2017-08-24 17:05 | PHA.PHARE_ITS ---
Consult Pharmacy has been consulted to manage selected antiobiotic: Vancomycin Type of Consult: Follow-up Suspected Infection: Sepsis Labs: Sodium 143 mmol/L (136-145) 08/24/17 03:45 Potassium 3.5 mmol/L (3.5-5.1) 08/24/17 03:45 Chloride 116 mmol/L (98-107) H 08/24/17 03:45 Carbon Dioxide 13.0 mmol/L (21.0-32.0) L 08/24/17 03:45 Anion Gap 14 (5-15) 08/24/17 03:45 BUN 60 mg/dL (7-18) H 08/24/17 03:45 Creatinine 2.26 mg/dL (0.70-1.30) H 08/24/17 03:45 Est GFR (MDRD) Af Amer 37 mL/min (>60) L 08/24/17 03:45 Est GFR (MDRD) Non-Af 30 mL/min (>60) L 08/24/17 03:45 BUN/Creatinine Ratio 26.5 RATIO (10-20) H 08/24/17 03:45 Glucose 151 mg/dL (74-106) H 08/24/17 03:45 Vancomycin Trough 22.0 ug/mL (5.0-15.0) H 08/23/17 09:30 Random Vancomycin 17.8 ug/mL (0.0-15.0) H 08/24/17 10:50 Microbiology: Microbiology 08/21/17 23:00 Wound - Buttock Gram Stain - Final 08/21/17 23:00 Wound - Buttock Wound Culture - Preliminary GNR lactose unit leader GNR lactose unit leader#2 Gram negative selwyn Gram positive selwyn 08/21/17 19:30 Urine, Catheterized Urine Culture - Final Culture exhibits no growth. 08/21/17 19:30 Stool C. difficile DNA Amplification - Final Weight used for dosin.6 kg Estimated Creatinine Clearance: 30 ML/MIN Goal Trough: 10-15 mcg/mL Pharmacy Plan for Drug Dosing: Review of labs shows Cr increasing from 1.98 to 2.26 on 08.24.17. Vancomycin random level 17.8 this AM (goal 10-15). Will decrease vancomycin to 500mg iv q24h and get another random level 7.16.18 @0930. Pharmacy Service will continue to monitor and adjust dosing as required.
[2017-08-24 18:10] LABS: Hematocrit 26.3 % (40-54); Hemoglobin 8.4 g/dl (13.0-16.5)
[2017-08-24 18:17] LABS: International Normalized Ratio 1.3; Prothrombin Time (Protime)PT. 16.2 SECONDS (11.7-14.9)
[2017-08-24 18:18] LABS: Partial Thromboplast Time 47.9 Seconds (24.1-36.2)
[2017-08-24 18:56] LABS: Bedside Glucose 137 mg/dL (70-110)
[2017-08-24] MEDS: Pravastatin 40 MG Tablet PO (22:08)
[2017-08-25] VITALS (13 sets, daily range): BP systolic 112–135; BP diastolic 56–78; PULSE 84–105; RESP 12–22; TEMP 36.2–37.1; O2SAT 96–99
[2017-08-25 00:16] LABS: Bedside Glucose 124 mg/dL (70-110)
[2017-08-25 04:50] LABS: Absolute Neutrophil Count 4.1 X10^3/uL (2.0-7.7); Basophil# 0.01 X10^3/uL; Basophil% 0.2 % (0-1); Eosinophil# 0.22 X10^3/uL; Eosinophils% 3.7 % (0-5); Hematocrit 28.9 % (40-54); Hemoglobin 9.7 g/dl (13.0-16.5); Mean Corp Hgb Conc 33.6 g/gl (32-36); Mean Corpuscular Hgb 27.8 pg (27.0-32.0); Mean Corpuscular Volume 82.8 fL (80-94); Monocyte# 0.51 X10^3/uL; Monocyte% 8.7 % (0-10); Neutrophil # 4.11 X10^3/uL (2.7-7.7); Neutrophil % 69.7 % (47-70); Platelet Count 220 K/mm3 (150-450); RBC Distribution Width CV 15.5 % (11.6-14.6); RBC Distribution Width SD 46.1 fl (35.1-43.9); Red Blood Count 3.49 M/mm3 (4.6-6.2); White Blood Count 5.9 K/mm3 (4.4-11.0)
[2017-08-25 04:58] LABS: Differential Indicated SCAN CRITERIA MET; POSITIVE COUNT NO; POSITIVE DIFFERENTIAL NO; POSITIVE MORPHOLOGY YES
[2017-08-25 05:10] LABS: Albumin, Serum 1.4 g/dL (3.2-5.0); BUN 55 mg/dL (7-18); Chloride 110 mmol/L (98-107); Creatinine, Serum 2.04 mg/dL (0.70-1.30); EST Glomerular Filtration Rate 34 mL/min (>60); Est Glom Filt Rate - Afr Amer 41 mL/min (>60); Glucose 142 mg/dL (74-106); Phosphorus 3.6 mg/dL (2.5-4.9); Potassium 3.1 mmol/L (3.5-5.1); Sodium Level 143 mmol/L (136-145)
[2017-08-25 05:37] LABS: Differential Comment SCANNED
--- NOTE | 2017-08-25 05:55 | EKG12_ITS ---
Test Reason : SVT Blood Pressure : / mmHG Vent. Rate : 097 BPM Atrial Rate : 097 BPM P-R Int : 146 ms QRS Dur : 084 ms QT Int : 364 ms P-R-T Axes : 080 -02 070 degrees QTc Int : 462 ms Normal sinus rhythm Inferior infarct , age undetermined Abnormal ECG When compared with ECG of 23-AUG-2017 21:51, MANUAL COMPARISON REQUIRED, DATA IS UNCONFIRMED Confirmed by EROS ALFONSO, PRABHA ([id number]), online content editor JAIDEN KRISHNAMURTHY ([id number]) on 08/26/2017 3:08:06 PM Referred By: SATHISH Confirmed By:PRABHA COONEY MD
[2017-08-25] MEDS: Sucralfate 1 GM Tablet PO ×4 (06:07→21:15)
[2017-08-25] MEDS: Dicyclomine 10 MG Capsule PO (06:09)
[2017-08-25] MEDS: Levothyroxine 25 MCG TABLET PO (06:09)
[2017-08-25] MEDS: 0.9% NaCl Peripheral Flush Adult/Peds IV (06:10)
[2017-08-25] MEDS: CHLORHEXIDINE GLUC 2% CLOTH 1 EACH TOWELETTE TOPICAL (06:10)
[2017-08-25 06:21] LABS: Bedside Glucose 140 mg/dL (70-110)
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
--- NOTE | 2017-08-25 06:29 | PCM.PN.INT ---
Subjective: The patient was seen and examined at the bedside this morning. Events from the last 24 hours have been reviewed. The patient is currently afebrile, hemodynamically stable and maintaining appropriate oxygen saturations on room air. The patient's main concern this morning is for that of loose bowel movements. The patient has been off of vasopressor support since 11 AM yesterday. Objective: The patient's most recent lab work, culture data and imaging studies have all been personally reviewed. Wound culture dated August 21 was polymicrobial in nature with E. coli, Klebsiella, and Providencia identified. Blood and urine cultures have shown no growth to date. C. difficile was negative. General: Alert, Cooperative, No apparent distress HEENT: Atraumatic, PERRLA, Normocephalic Oral: No Gingival or Mucosal Lesions/ Ulcerations Neck: Supple, No Nodes, Trachea Midline Lungs: No rhonchi, No wheeze, No rales, Diminished Cardiovascular: Regular rate, Regular Rhythm, Normal S1, Normal S2, No murmurs Abdomen: Bowel Sounds Present, Soft, Non Tender, Non-Distended Extremities: No clubbing, No cyanosis, No edema, - - Right above-knee amputation Skin: - - Baseline decubitus ulcers involving the buttocks and perineum. Musculoskeletal: No Muscle Wasting Lymphatic: No Cervical, Supraclavicular, or Inguinal Adenopathy Neurological: - - Baseline paraplegia Psych/Mental Status: Normal Affect, Appropriate Vital Signs Temp Pulse Resp BP Pulse Ox 97.5 F L 93 15 130/62 H 99 08/25/17 06:00 08/25/17 06:00 08/25/17 06:00 08/25/17 06:00 08/25/17 06:00 Oxygen Delivery Method Room Air Weight: 216 lb 7.903 oz Body Mass Index (BMI) 22.6 Intake and Output for Last 24 Hours 08/23/17 08/24/17 08/25/17 23:59 23:59 23:59 Intake Total 2932.1 / 2932.1 2533.5 / 2533.5 1366 / 1366 Output Total 800 / 800 700 / 700 300 / 300 Balance 2132.1 / 2132.1 1833.5 / 1833.5 1066 / 1066 Labs (Last 48 Hours) 08/23/17 08/23/17 08/23/17 09:30 12:18 17:24 WBC RBC Hgb Hct MCV MCH MCHC RDW RDW Differential Plt Count MPV Immature Gran % (Auto) Neut % (Auto) Lymph % (Auto) [place] % (Auto) Eos % (Auto) Baso % (Auto) Absolute Neuts (auto) Absolute Lymphs (auto) Total Counted Differential Comment PT INR APTT Sodium Potassium Chloride Carbon Dioxide Anion Gap BUN Creatinine Estim Creat Clear Calc Est GFR (MDRD) Af Amer Est GFR (MDRD) Non-Af BUN/Creatinine Ratio Glucose Calcium Phosphorus Magnesium Troponin I Albumin Vancomycin Trough 22.0 H Random Vancomycin POC Glucose 146 H 116 H Blood Type Antibody Screen Crossmatch 08/24/17 08/24/17 08/24/17 00:36 00:40 03:40 WBC RBC Hgb Hct MCV MCH MCHC RDW RDW Differential Plt Count MPV Immature Gran % (Auto) Neut % (Auto) Lymph % (Auto) [place] % (Auto) Eos % (Auto) Baso % (Auto) Absolute Neuts (auto) Absolute Lymphs (auto) Total Counted Differential Comment PT INR APTT Sodium Potassium Chloride Carbon Dioxide Anion Gap BUN Creatinine Estim Creat Clear Calc Est GFR (MDRD) Af Amer Est GFR (MDRD) Non-Af BUN/Creatinine Ratio Glucose Calcium Phosphorus Magnesium 1.7 Troponin I 0.018 < 0.015 Albumin Vancomycin Trough Random Vancomycin POC Glucose 143 H Blood Type Antibody Screen Crossmatch 08/24/17 08/24/17 08/24/17 03:45 03:45 03:45 WBC 6.0 RBC 3.28 L Hgb 8.8 L Hct 27.5 L MCV 83.8 MCH 26.8 L MCHC 32.0 RDW 16.2 H RDW Differential 49.7 H Plt Count 195 MPV 9.0 Immature Gran % (Auto) 0.200 Neut % (Auto) 78.9 H Lymph % (Auto) 11.8 L [place] % (Auto) 8.2 Eos % (Auto) 0.7 Baso % (Auto) 0.2 Absolute Neuts (auto) 4.7 Absolute Lymphs (auto) 0.70 L Total Counted Not Reportable Differential Comment SCANNED PT INR APTT Sodium 143 Potassium 3.5 Chloride 116 H Carbon Dioxide 13.0 L Anion Gap 14 BUN 60 H Creatinine 2.26 H Estim Creat Clear Calc 30.06 Est GFR (MDRD) Af Amer 37 L Est GFR (MDRD) Non-Af 30 L BUN/Creatinine Ratio 26.5 H Glucose 151 H Calcium 6.2 L* Phosphorus 4.6 Magnesium Troponin I Albumin Vancomycin Trough Random Vancomycin POC Glucose Blood Type Antibody Screen Crossmatch 08/24/17 08/24/17 08/24/17 05:09 06:40 10:50 WBC RBC Hgb Hct MCV MCH MCHC RDW RDW Differential Plt Count MPV Immature Gran % (Auto) Neut % (Auto) Lymph % (Auto) [place] % (Auto) Eos % (Auto) Baso % (Auto) Absolute Neuts (auto) Absolute Lymphs (auto) Total Counted Differential Comment PT INR APTT Sodium Potassium Chloride Carbon Dioxide Anion Gap BUN Creatinine Estim Creat Clear Calc Est GFR (MDRD) Af Amer Est GFR (MDRD) Non-Af BUN/Creatinine Ratio Glucose Calcium Phosphorus Magnesium Cancelled Troponin I Cancelled Albumin Vancomycin Trough Random Vancomycin 17.8 H POC Glucose 145 H Blood Type Antibody Screen Crossmatch 08/24/17 08/24/17 08/24/17 12:02 18:00 18:00 WBC RBC Hgb 8.4 L Hct 26.3 L MCV MCH MCHC RDW RDW Differential Plt Count MPV Immature Gran % (Auto) Neut % (Auto) Lymph % (Auto) [place] % (Auto) Eos % (Auto) Baso % (Auto) Absolute Neuts (auto) Absolute Lymphs (auto) Total Counted Differential Comment PT 16.2 H INR 1.3 APTT 47.9 H Sodium Potassium Chloride Carbon Dioxide Anion Gap BUN Creatinine Estim Creat Clear Calc Est GFR (MDRD) Af Amer Est GFR (MDRD) Non-Af BUN/Creatinine Ratio Glucose Calcium Phosphorus Magnesium Troponin I Albumin Vancomycin Trough Random Vancomycin POC Glucose 174 H Blood Type Antibody Screen Crossmatch 08/24/17 08/24/17 08/25/17 18:30 18:50 00:11 WBC RBC Hgb Hct MCV MCH MCHC RDW RDW Differential Plt Count MPV Immature Gran % (Auto) Neut % (Auto) Lymph % (Auto) [place] % (Auto) Eos % (Auto) Baso % (Auto) Absolute Neuts (auto) Absolute Lymphs (auto) Total Counted Differential Comment PT INR APTT Sodium Potassium Chloride Carbon Dioxide Anion Gap BUN Creatinine Estim Creat Clear Calc Est GFR (MDRD) Af Amer Est GFR (MDRD) Non-Af BUN/Creatinine Ratio Glucose Calcium Phosphorus Magnesium Troponin I Albumin Vancomycin Trough Random Vancomycin POC Glucose 137 H 124 H Blood Type A POSITIVE Antibody Screen NEGATIVE Crossmatch See Detail 08/25/17 08/25/17 08/25/17 04:40 04:40 06:04 WBC 5.9 RBC 3.49 L Hgb 9.7 L Hct 28.9 L MCV 82.8 MCH 27.8 MCHC 33.6 RDW 15.5 H RDW Differential 46.1 H Plt Count 220 MPV 9.0 Immature Gran % (Auto) 0.700 Neut % (Auto) 69.7 Lymph % (Auto) 17.0 L [place] % (Auto) 8.7 Eos % (Auto) 3.7 Baso % (Auto) 0.2 Absolute Neuts (auto) 4.1 Absolute Lymphs (auto) 1.00 Total Counted Not Reportable Differential Comment SCANNED PT INR APTT Sodium 143 Potassium 3.1 L Chloride 110 H Carbon Dioxide 21.0 Anion Gap BUN 55 H Creatinine 2.04 H Estim Creat Clear Calc 33.30 Est GFR (MDRD) Af Amer 41 L Est GFR (MDRD) Non-Af 34 L BUN/Creatinine Ratio 27.0 H Glucose 142 H Calcium 6.0 L* Phosphorus 3.6 Magnesium Troponin I Albumin 1.4 L Vancomycin Trough Random Vancomycin POC Glucose 140 H Blood Type Antibody Screen Crossmatch Microbiology 08/21/17 23:00 Wound - Buttock Gram Stain - Final 08/21/17 23:00 Wound - Buttock Wound Culture - Preliminary GNR lactose composition floor setter GNR lactose composition floor setter#2 Gram negative selwyn Gram positive selwyn 08/21/17 19:30 Urine, Catheterized Urine Culture - Final Culture exhibits no growth. Clinical Impression(s) from Imaging Studies Abdomen/Pelvis CT 08/21/17 11:22 IMPRESSION: Large amount of stool throughout the descending and sigmoid colon as well as the rectum. Stable left-sided hydronephrosis associated with stable renal atrophy. Atherosclerosis. Cholelithiasis. Electronically Signed: Mimi Romero MD at 12:16 EDT Tel , Service support , Chest X-Ray 08/21/17 20:45 IMPRESSION: No acute finding Electronically Signed: Barber Gupta DO at 21:01 EDT Tel , Service support , Renal Ultrasound 08/23/17 10:02 IMPRESSION: There is atrophy of the left kidney with hydronephrosis, as demonstrated on the recent CT. The right kidney is normal in size and echogenicity without hydronephrosis. Electronically Signed: Bell Kapoor MD at 20:08 EDT Tel Direct: [phone], Service support , Medical Necessity - Tobacco Use Smoking Status: Never smoker Assessment/Plan All Active Problems Abdominal pain (Acute) History of right above knee amputation (Acute) Acute kidney injury (Acute) Septic shock (Acute) Pressure ulcer of sacral region, stage 3 (Acute) Scrotal ulcer (Acute) 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 (Acute) Complicated UTI (urinary tract infection) (Acute) Constipation (Acute) Pressure ulcer of perianal region (Resolved) Pressure ulcer of buttock (Resolved) UTI (urinary tract infection) (Acute) RECOMMENDATIONS: 1. Continue antibiotics. Vancomycin can likely be discontinued. 2. Continue local wound care 3. Continue supplemental IV fluid hydration per nephrology recommendations. 4. Advance diet as tolerated 5. Outpatient gastroenterology follow-up 6. Continue Lovenox and Protonix for prophylaxis 7. The patient is medically stable for transfer out of the intensive care unit. 8. Additional electrolyte repletion as indicated IMPRESSIONS: 1. Suspected septic shock secondary to gram-negative wound infection Patient's wound culture is growing a gram-negative selwyn. This is likely the source of patient's decompensation. The patient will remain on antibiotics accordingly. Vasopressor support has been weaned off as of yesterday. The patient remains hemodynamically stable. The patient supplemental IV fluid hydration will be continued per nephrology recommendations. 2. Chronic diarrhea Etiology is unclear. The patient underwent colonoscopy in June which was not successful despite a 2-day bowel prep. If the patient's chronic sacral wounds continue to become infected from diarrhea may need to consider diverting/permanent colostomy. However, at this time, the patient is wishing to obtain a second opinion from a GI provider following recovery from his acute illness. Surgery continues to follow accordingly. 3. Acute kidney injury/hypokalemia/hypocalcemia Likely secondary to septic shock and subsequent ischemic ATN. The patient's hemodynamics have been stabilized at this time. Nephrology is following. Continue to monitor urine output closely. No acute indication for renal replacement therapy. Continue bicarbonate containing supplemental IV fluids per nephrology recommendations. 4. Paroxysmal SVT Patient has been in sinus tachycardia most of the time. However, periodic episodes of SVT with rates in the 150s have been noted. Cardiology is following with echocardiogram pending. Continue amiodarone for now. 5. Diabetes mellitus type 2/hypothyroidism/T4 paraplegia/poor history Complicates care, management, recovery and prognosis. Continue Synthroid per home regimen. Advance diet as tolerated. This note was generated with [employer] dictation software. It may contain incorrect words, spelling, and punctuation that were not noted in checking the note before signing. Code Visit Inpatient E&M: 53819 [facility] Hosp L3
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
[2017-08-25 07:12] LABS: Magnesium 1.7 mg/dL (1.6-2.6)
[2017-08-25] MEDS: Ascorbic Acid 500 MG Tablet 1000 MG PO (09:19)
[2017-08-25] MEDS: Amiodarone 200 MG Tablet PO (09:20)
[2017-08-25] MEDS: Pantoprazole Sodium 40 MG Tablet PO (09:20)
[2017-08-25] MEDS: Enoxaparin 40 MG/0.4 ML Syringe SC (09:20)
[2017-08-25] MEDS: Calcium Carbonate 500 MG Tablet PO ×2 (09:41→16:25)
[2017-08-25] MEDS: Menthol/Lanolin/Calamine/Znox 113 GM Tube 1 APPLIC TOPICAL ×2 (09:42→21:14)
[2017-08-25] MEDS: Vancomycin IV 500 MG/100 ML BAG 100 MG IV (09:42)
[2017-08-25 09:54] LABS: Vitamin D,25 Hydroxy 14.9 ng/mL (29.95-100.01)
--- NOTE | 2017-08-25 10:10 | PCM.PN.SRG ---
Patient Problems: Active and Suspected Problems Abdominal pain (Acute) History of right above knee amputation (Acute) Acute kidney injury (Acute) Complicated UTI (urinary tract infection) (Acute) Constipation (Acute) Subjective: denies abd pain - Physical Exam General: Alert, Oriented x3, No apparent distress Abdomen: Soft, Non Tender, Distended - mild, - - no PS Vital Signs Temp Pulse Resp BP Pulse Ox 97.5 F L 84 12 114/76 99 08/25/17 06:00 08/25/17 08:30 08/25/17 07:00 08/25/17 07:00 08/25/17 07:00 Oxygen Delivery Method Room Air Weight: 216 lb 7.903 oz Body Mass Index (BMI) 22.6 Intake and Output for Last 24 Hours 08/23/17 08/24/17 08/25/17 23:59 23:59 23:59 Intake Total 2932.1 / 2932.1 2533.5 / 2533.5 1366 / 1366 Output Total 800 / 800 700 / 700 300 / 300 Balance 2132.1 / 2132.1 1833.5 / 1833.5 1066 / 1066 Microbiology Past 72 Hours 08/21/17 23:00 Gram Stain - Final Wound - Buttock Wound Culture - Final Escherichia coli Klebsiella pneumoniae sp pneum Providencia alcalifaciens Lactobacillus hilgardii 08/21/17 18:54 Blood Culture - Preliminary Blood Culture (Wb) - Left Hand No growth in 48 hours. 08/21/17 18:54 Blood Culture - Preliminary Blood Culture (Wb) - Anticubital Left No growth in 48 hours. 08/21/17 19:30 Urine Culture - Final Urine, Catheterized Culture exhibits no growth. Laboratory Tests Past 24 Hrs 08/24/17 08/24/17 08/24/17 10:50 18:00 18:00 WBC RBC Hgb 8.4 L Hct 26.3 L MCV MCH MCHC RDW RDW Differential Plt Count MPV Immature Gran % (Auto) Neut % (Auto) Lymph % (Auto) Davis % (Auto) Eos % (Auto) Baso % (Auto) Absolute Neuts (auto) Absolute Lymphs (auto) Total Counted Differential Comment PT 16.2 H INR 1.3 APTT 47.9 H Sodium Potassium Chloride Carbon Dioxide BUN Creatinine Estim Creat Clear Calc Est GFR (MDRD) Af Amer Est GFR (MDRD) Non-Af BUN/Creatinine Ratio Glucose Calcium Phosphorus Magnesium Albumin Vitamin D 25-Hydroxy Vit D 1,25-Dihydroxy Random Vancomycin 17.8 H Blood Type Antibody Screen Crossmatch 08/24/17 08/25/17 08/25/17 18:30 04:40 04:40 WBC 5.9 RBC 3.49 L Hgb 9.7 L Hct 28.9 L MCV 82.8 MCH 27.8 MCHC 33.6 RDW 15.5 H RDW Differential 46.1 H Plt Count 220 MPV 9.0 Immature Gran % (Auto) 0.700 Neut % (Auto) 69.7 Lymph % (Auto) 17.0 L Davis % (Auto) 8.7 Eos % (Auto) 3.7 Baso % (Auto) 0.2 Absolute Neuts (auto) 4.1 Absolute Lymphs (auto) 1.00 Total Counted Not Reportable Differential Comment SCANNED PT INR APTT Sodium 143 Potassium 3.1 L Chloride 110 H Carbon Dioxide 21.0 BUN 55 H Creatinine 2.04 H Estim Creat Clear Calc 33.30 Est GFR (MDRD) Af Amer 41 L Est GFR (MDRD) Non-Af 34 L BUN/Creatinine Ratio 27.0 H Glucose 142 H Calcium 6.0 L* Phosphorus 3.6 Magnesium Albumin 1.4 L Vitamin D 25-Hydroxy Vit D 1,25-Dihydroxy Random Vancomycin Blood Type A POSITIVE Antibody Screen NEGATIVE Crossmatch See Detail 08/25/17 08/25/17 08/25/17 04:40 08:05 08:05 WBC RBC Hgb Hct MCV MCH MCHC RDW RDW Differential Plt Count MPV Immature Gran % (Auto) Neut % (Auto) Lymph % (Auto) Davis % (Auto) Eos % (Auto) Baso % (Auto) Absolute Neuts (auto) Absolute Lymphs (auto) Total Counted Differential Comment PT INR APTT Sodium Potassium Chloride Carbon Dioxide BUN Creatinine Estim Creat Clear Calc Est GFR (MDRD) Af Amer Est GFR (MDRD) Non-Af BUN/Creatinine Ratio Glucose Calcium Phosphorus Magnesium 1.7 Albumin Vitamin D 25-Hydroxy 14.9 L Vit D 1,25-Dihydroxy Pending Random Vancomycin Blood Type Antibody Screen Crossmatch POC Glucose 08/25/17 08/25/17 08/24/17 06:04 00:11 18:50 POC Glucose 140 H 124 H 137 H 08/24/17 12:02 POC Glucose 174 H Medical Necessity - Tobacco Use Smoking Status: Never smoker Assessment/Plan All Active Problems Abdominal pain (Acute) History of right above knee amputation (Acute) Acute kidney injury (Acute) Septic shock (Acute) Pressure ulcer of sacral region, stage 3 (Acute) Scrotal ulcer (Acute) 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 The patient is having sepsis and his lactic acid is within normal limits. His pressor requirements were off yesterday until his episode of SVT currently on low-dose. His abdomen is soft, nontender, nondistended. sepsis likely from sacral wound 2. Continue broad-spectrum antibiotics per hooker laster. Blood cultures pending. If things change CT can be repeated but there are currently no surgical indications or signs or symptoms pointing to the abdomen. 3. D/w Dr. Leggett and Dr. Cavazos-- would not do the bowel prep currently with the improving ARF; recommend patient go to SNF to recover and can continue to get wound care until he is able to get appt with GI for 2nd opinion for diarrhea/scope, if GI is unable to come up with an etiology of diarrhea recommend diverting versus permanent colostomy at tertiary care facility. Katherin Isidro M.D. Pager: [phone] [facility] [address] [place] [address], [facility], [address] [place] [address] Office: [phone] Code Visit Inpatient E&M: [id number] Subs Hosp L1
--- NOTE | 2017-08-25 10:16 | PN.SURG_ITS ---
Patient Problems: Active and Suspected Problems Abdominal pain (Acute) History of right above knee amputation (Acute) Acute kidney injury (Acute) Complicated UTI (urinary tract infection) (Acute) Constipation (Acute) Subjective: denies abd pain - Physical Exam General: Alert, Oriented x3, No apparent distress Abdomen: Soft, Non Tender, Distended - mild, - - no PS Vital Signs Temp Pulse Resp BP Pulse Ox 97.5 F L 84 12 114/76 99 08/25/17 06:00 08/25/17 08:30 08/25/17 07:00 08/25/17 07:00 08/25/17 07:00 Oxygen Delivery Method Room Air Weight: 216 lb 7.903 oz Body Mass Index (BMI) 22.6 Intake and Output for Last 24 Hours 08/23/17 08/24/17 08/25/17 23:59 23:59 23:59 Intake Total 2932.1 / 2932.1 2533.5 / 2533.5 1366 / 1366 Output Total 800 / 800 700 / 700 300 / 300 Balance 2132.1 / 2132.1 1833.5 / 1833.5 1066 / 1066 Microbiology Past 72 Hours 08/21/17 23:00 Gram Stain - Final Wound - Buttock Wound Culture - Final Escherichia coli Klebsiella pneumoniae sp pneum Providencia alcalifaciens Lactobacillus hilgardii 08/21/17 18:54 Blood Culture - Preliminary Blood Culture (Wb) - Left Hand No growth in 48 hours. 08/21/17 18:54 Blood Culture - Preliminary Blood Culture (Wb) - Anticubital Left No growth in 48 hours. 08/21/17 19:30 Urine Culture - Final Urine, Catheterized Culture exhibits no growth. Laboratory Tests Past 24 Hrs 08/24/17 08/24/17 08/24/17 10:50 18:00 18:00 WBC RBC Hgb 8.4 L Hct 26.3 L MCV MCH MCHC RDW RDW Differential Plt Count MPV Immature Gran % (Auto) Neut % (Auto) Lymph % (Auto) [place] % (Auto) Eos % (Auto) Baso % (Auto) Absolute Neuts (auto) Absolute Lymphs (auto) Total Counted Differential Comment PT 16.2 H INR 1.3 APTT 47.9 H Sodium Potassium Chloride Carbon Dioxide BUN Creatinine Estim Creat Clear Calc Est GFR (MDRD) Af Amer Est GFR (MDRD) Non-Af BUN/Creatinine Ratio Glucose Calcium Phosphorus Magnesium Albumin Vitamin D 25-Hydroxy Vit D 1,25-Dihydroxy Random Vancomycin 17.8 H Blood Type Antibody Screen Crossmatch 08/24/17 08/25/17 08/25/17 18:30 04:40 04:40 WBC 5.9 RBC 3.49 L Hgb 9.7 L Hct 28.9 L MCV 82.8 MCH 27.8 MCHC 33.6 RDW 15.5 H RDW Differential 46.1 H Plt Count 220 MPV 9.0 Immature Gran % (Auto) 0.700 Neut % (Auto) 69.7 Lymph % (Auto) 17.0 L [place] % (Auto) 8.7 Eos % (Auto) 3.7 Baso % (Auto) 0.2 Absolute Neuts (auto) 4.1 Absolute Lymphs (auto) 1.00 Total Counted Not Reportable Differential Comment SCANNED PT INR APTT Sodium 143 Potassium 3.1 L Chloride 110 H Carbon Dioxide 21.0 BUN 55 H Creatinine 2.04 H Estim Creat Clear Calc 33.30 Est GFR (MDRD) Af Amer 41 L Est GFR (MDRD) Non-Af 34 L BUN/Creatinine Ratio 27.0 H Glucose 142 H Calcium 6.0 L* Phosphorus 3.6 Magnesium Albumin 1.4 L Vitamin D 25-Hydroxy Vit D 1,25-Dihydroxy Random Vancomycin Blood Type A POSITIVE Antibody Screen NEGATIVE Crossmatch See Detail 08/25/17 08/25/17 08/25/17 04:40 08:05 08:05 WBC RBC Hgb Hct MCV MCH MCHC RDW RDW Differential Plt Count MPV Immature Gran % (Auto) Neut % (Auto) Lymph % (Auto) [place] % (Auto) Eos % (Auto) Baso % (Auto) Absolute Neuts (auto) Absolute Lymphs (auto) Total Counted Differential Comment PT INR APTT Sodium Potassium Chloride Carbon Dioxide BUN Creatinine Estim Creat Clear Calc Est GFR (MDRD) Af Amer Est GFR (MDRD) Non-Af BUN/Creatinine Ratio Glucose Calcium Phosphorus Magnesium 1.7 Albumin Vitamin D 25-Hydroxy 14.9 L Vit D 1,25-Dihydroxy Pending Random Vancomycin Blood Type Antibody Screen Crossmatch POC Glucose 08/25/17 08/25/17 08/24/17 06:04 00:11 18:50 POC Glucose 140 H 124 H 137 H 08/24/17 12:02 POC Glucose 174 H Medical Necessity - Tobacco Use Smoking Status: Never smoker Assessment/Plan All Active Problems Abdominal pain (Acute) History of right above knee amputation (Acute) Acute kidney injury (Acute) Septic shock (Acute) Pressure ulcer of sacral region, stage 3 (Acute) Scrotal ulcer (Acute) 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 The patient is having sepsis and his lactic acid is within normal limits. His pressor requirements were off yesterday until his episode of SVT currently on low-dose. His abdomen is soft, nontender, nondistended. sepsis likely from sacral wound 2. Continue broad-spectrum antibiotics per janitorial assistant. Blood cultures pending. If things change CT can be repeated but there are currently no surgical indications or signs or symptoms pointing to the abdomen. 3. D/w Dr. Leggett and Dr. Cavazos-- would not do the bowel prep currently with the improving ARF; recommend patient go to SNF to recover and can continue to get wound care until he is able to get appt with GI for 2nd opinion for diarrhea /scope, if GI is unable to come up with an etiology of diarrhea recommend diverting versus permanent colostomy at tertiary care facility. Katherin Isidro M.D. Pager: [phone] [facility] [address] [place] [address], [facility], [address] [place] [address] Office: [phone] Code Visit Inpatient E&M: 52713 Subs Hosp L1
--- NOTE | 2017-08-25 10:20 | RAD_ITS ---
STUDY: X-RAY - ABDOMEN/PELVIS REASON FOR EXAM: Male, 71 years old. Abdominal distention. The patient is paraplegic. TECHNIQUE: Two AP supine views of the abdomen and pelvis. COMPARISON: Comparison is made with prior study dated May 12, 2017. FINDINGS: There is elevation of the right hemidiaphragm. Blunting of the left costophrenic angle with findings suggestive of left lower lobe atelectasis. There is gaseous distention of the entire colon most likely representing a ileus of the colon. The visualized liver, spleen and kidneys are grossly normal in size and morphology. Normal soft tissue structures. Normal visualized osseous structures. RAD/Abdomen Single View (Portable) IMPRESSION: Distended colon. This is suggestive of ileus of the colon. Follow-up is recommended. Electronically Signed: Hayder Cisneros MD at 13:29 EDT Tel [phone], Service support ,
--- NOTE | 2017-08-25 11:20 | PN.RENAL_ITS ---
Patient Problems: Active and Suspected Problems Abdominal pain (Acute) History of right above knee amputation (Acute) Acute kidney injury (Acute) Complicated UTI (urinary tract infection) (Acute) Constipation (Acute) Subjective: Patient is doing fine. He is complaining of diarrhea . No nausea No vomiting No SOB No CP - Physical Exam General: Oriented x3 HEENT: Atraumatic Oral: Moist Mucosa Neck: Supple, No JVD Lungs: Clear to auscultation, Normal air movement, No rhonchi, No wheeze Cardiovascular: Regular rate, Regular Rhythm, Normal S1, Normal S2 Abdomen: Bowel Sounds Present, Non Tender, Hyperactive Bowel Sounds, Distended Extremities: No clubbing, No cyanosis, - - AKA of the right leg. + 1 soni of LLE Skin: No rashes Neurological: Cranial nerves II-XII grossly intact, Neuro grossly intact Psych/Mental Status: Normal Affect Vital Signs Temp Pulse Resp BP Pulse Ox 98.3 F 84 12 116/57 L 99 08/25/17 08:00 08/25/17 08:30 08/25/17 08:00 08/25/17 08:00 08/25/17 08:00 Oxygen Delivery Method Room Air Weight: 98.2 kg Body Mass Index (BMI) 22.6 Intake and Output for Last 24 Hours 08/23/17 08/24/17 08/25/17 23:59 23:59 23:59 Intake Total 2932.1 / 2932.1 2533.5 / 2533.5 1366 / 1366 Output Total 800 / 800 700 / 700 300 / 300 Balance 2132.1 / 2132.1 1833.5 / 1833.5 1066 / 1066 Microbiology Past 72 Hours 08/21/17 23:00 Gram Stain - Final Wound - Buttock Wound Culture - Final Escherichia coli Klebsiella pneumoniae sp pneum Providencia alcalifaciens Lactobacillus hilgardii 08/21/17 18:54 Blood Culture - Preliminary Blood Culture (Wb) - Left Hand No growth in 48 hours. 08/21/17 18:54 Blood Culture - Preliminary Blood Culture (Wb) - Anticubital Left No growth in 48 hours. 08/21/17 19:30 Urine Culture - Final Urine, Catheterized Culture exhibits no growth. Laboratory Tests Past 24 Hrs 08/24/17 08/24/17 08/24/17 10:50 18:00 18:00 WBC RBC Hgb 8.4 L Hct 26.3 L MCV MCH MCHC RDW RDW Differential Plt Count MPV Immature Gran % (Auto) Neut % (Auto) Lymph % (Auto) [place] % (Auto) Eos % (Auto) Baso % (Auto) Absolute Neuts (auto) Absolute Lymphs (auto) Total Counted Differential Comment PT 16.2 H INR 1.3 APTT 47.9 H Sodium Potassium Chloride Carbon Dioxide BUN Creatinine Estim Creat Clear Calc Est GFR (MDRD) Af Amer Est GFR (MDRD) Non-Af BUN/Creatinine Ratio Glucose Calcium Phosphorus Magnesium Albumin Vitamin D 25-Hydroxy Vit D 1,25-Dihydroxy Random Vancomycin 17.8 H Blood Type Antibody Screen Crossmatch 08/24/17 08/25/17 08/25/17 18:30 04:40 04:40 WBC 5.9 RBC 3.49 L Hgb 9.7 L Hct 28.9 L MCV 82.8 MCH 27.8 MCHC 33.6 RDW 15.5 H RDW Differential 46.1 H Plt Count 220 MPV 9.0 Immature Gran % (Auto) 0.700 Neut % (Auto) 69.7 Lymph % (Auto) 17.0 L [place] % (Auto) 8.7 Eos % (Auto) 3.7 Baso % (Auto) 0.2 Absolute Neuts (auto) 4.1 Absolute Lymphs (auto) 1.00 Total Counted Not Reportable Differential Comment SCANNED PT INR APTT Sodium 143 Potassium 3.1 L Chloride 110 H Carbon Dioxide 21.0 BUN 55 H Creatinine 2.04 H Estim Creat Clear Calc 33.30 Est GFR (MDRD) Af Amer 41 L Est GFR (MDRD) Non-Af 34 L BUN/Creatinine Ratio 27.0 H Glucose 142 H Calcium 6.0 L* Phosphorus 3.6 Magnesium Albumin 1.4 L Vitamin D 25-Hydroxy Vit D 1,25-Dihydroxy Random Vancomycin Blood Type A POSITIVE Antibody Screen NEGATIVE Crossmatch See Detail 08/25/17 08/25/17 08/25/17 04:40 08:05 08:05 WBC RBC Hgb Hct MCV MCH MCHC RDW RDW Differential Plt Count MPV Immature Gran % (Auto) Neut % (Auto) Lymph % (Auto) [place] % (Auto) Eos % (Auto) Baso % (Auto) Absolute Neuts (auto) Absolute Lymphs (auto) Total Counted Differential Comment PT INR APTT Sodium Potassium Chloride Carbon Dioxide BUN Creatinine Estim Creat Clear Calc Est GFR (MDRD) Af Amer Est GFR (MDRD) Non-Af BUN/Creatinine Ratio Glucose Calcium Phosphorus Magnesium 1.7 Albumin Vitamin D 25-Hydroxy 14.9 L Vit D 1,25-Dihydroxy Pending Random Vancomycin Blood Type Antibody Screen Crossmatch POC Glucose 08/25/17 08/25/17 08/24/17 06:04 00:11 18:50 POC Glucose 140 H 124 H 137 H 08/24/17 12:02 POC Glucose 174 H Medical Necessity - Tobacco Use Smoking Status: Never smoker Assessment/Plan All Active Problems Abdominal pain (Acute) History of right above knee amputation (Acute) Acute kidney injury (Acute) Septic shock (Acute) Pressure ulcer of sacral region, stage 3 (Acute) Scrotal ulcer (Acute) 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 non oliguric URSZULA is most probably ATN induced by ischemia CT showed chronic left hydronephrosis with left atrophic kidney Cr is improving Non oliguric. UOP 800 cc in the 24 hours No indication for HD Keep MAP >65 Check BMP in am 2- high anion gap acidosis. resolved. Will continue NaHc03 drip since the patient has diarrhea 3- Septic shock due to infected DU . Better. Off BP pressors. On Abx as per primary/ICU service 4- Diarrhea . as per the primary service Will continue to follow ALAN JACOBSON MD
[2017-08-25 13:00] LABS: Bedside Glucose 243 mg/dL (70-110)
--- NOTE | 2017-08-25 14:11 | CHAPLAIN ---
Type of Pastoral Visit ___ Initial Visit ___ Follow-up Visit ___ On-call Visit ___ General Patient Visit ___ Spiritual Assessment ___ Family Conference ___ Bereavement ___ Rapid Response ___ Code Blue _x__ Other (describe below) Pastoral Care Referral From _x__ Patient ___ Family ___ Nurse ___ Physician ___ Manager Of Hospital ___ Lion Tamer ___ Other (describe below) Sacrament/Intervention ___ Active listening ___ Anointing ___ Yazidi ___ Bereavement ___ Communion ___ Love exploration ___ ___ Life review ___ Prayer ___ Reconciliation ___ Sacrament of Sick ___ Supportive presence ___ Wedding _x__ Other (describe below) Pastoral Comments patient is sleeping; a calling card is left at bedside
[2017-08-25 17:41] LABS: Bedside Glucose 180 mg/dL (70-110)
[2017-08-25] MEDS: Pravastatin 40 MG Tablet PO (21:15)
[2017-08-26 00:16] LABS: Bedside Glucose 156 mg/dL (70-110)
[2017-08-26 02:22] VITALS: BP 137/70; PULSE 93; RESP 18; TEMP 37.4; O2SAT 100
[2017-08-26] MEDS: Sucralfate 1 GM Tablet PO ×4 (06:06→21:45)
[2017-08-26] MEDS: Levothyroxine 25 MCG TABLET PO (06:06)
[2017-08-26 06:15] LABS: Bedside Glucose 141 mg/dL (70-110)
[2017-08-26 07:00] LABS: Albumin, Serum 1.2 g/dL (3.2-5.0); BUN 42 mg/dL (7-18); BUN/Creat Ratio 24.9 RATIO (10-20); Calcium,Total 6.4 mg/dL (8.5-10.1); Chloride 104 mmol/L (98-107); Creatinine, Serum 1.69 mg/dL (0.70-1.30); EST Glomerular Filtration Rate 42 mL/min (>60); Est Glom Filt Rate - Afr Amer 51 mL/min (>60); Glucose 147 mg/dL (74-106); Phosphorus 2.6 mg/dL (2.5-4.9); Potassium 2.5 mmol/L (3.5-5.1); Sodium Level 138 mmol/L (136-145)
--- NOTE | 2017-08-26 07:39 | PCM.PROGNOTE ---
Patient Problems: Active and Suspected Problems Abdominal pain (Acute) History of right above knee amputation (Acute) Acute kidney injury (Acute) Complicated UTI (urinary tract infection) (Acute) Constipation (Acute) Subjective: The patient was seen and examined at the bedside this morning. Events from the last 24 hours have been reviewed. The patient currently has a low-grade fever, but remains hemodynamically stable and is maintaining appropriate oxygen saturations on room air. The patient is currently overall net +10.5 L for the admission. Creatinine has improved to 1.69 this morning. Potassium is low at 2.5. Improvement in diarrhea has been noted. Objective: The patient's most recent lab work, culture data and imaging studies have all been personally reviewed. Wound culture dated August 21 was polymicrobial in nature with E. coli, Klebsiella, and Providencia identified. Blood and urine cultures have shown no growth to date. C. difficile was negative. Stool for occult blood was positive. Surface echocardiogram revealed normal LV size and function with an ejection fraction of 65% and evidence of stage I diastolic dysfunction. - Physical Exam General: Alert, Cooperative, No apparent distress HEENT: Atraumatic, PERRLA, Normocephalic Oral: No Gingival or Mucosal Lesions/ Ulcerations Neck: Supple, No Nodes, Trachea Midline Lungs: No rhonchi, No wheeze, No rales, Diminished Cardiovascular: Regular rate, Regular Rhythm, Normal S1, Normal S2, No murmurs Abdomen: Bowel Sounds Present, Soft, Non Tender Extremities: No clubbing, No cyanosis, No edema, - - Right AKA Skin: - - No significant change from previous. Musculoskeletal: No Muscle Wasting Lymphatic: No Cervical, Supraclavicular, or Inguinal Adenopathy Neurological: - - Baseline paraplegia Psych/Mental Status: Normal Affect, Appropriate Vital Signs Temp Pulse Resp BP Pulse Ox 99.3 F H 93 18 137/70 H 100 08/26/17 02:22 08/26/17 02:22 08/26/17 02:22 08/26/17 02:22 08/26/17 02:22 Oxygen Delivery Method Room Air Weight: 217 lb 6.012 oz Body Mass Index (BMI) 22.6 Intake and Output for Last 24 Hours 08/24/17 08/25/17 08/26/17 23:59 23:59 23:59 Intake Total 2533.5 / 2533.5 1965 2858 / 2858 Output Total 700 / 700 1000 / 1000 775 / 775 Balance 1833.5 / 1833.5 966 / 966 208 / 2083 Microbiology Past 72 Hours 08/25/17 15:30 C. difficile DNA Amplification - Final Stool 08/25/17 15:30 Stool Occult Blood (DWAYNE) - Final Stool Occult Blood Positive 08/21/17 23:00 Gram Stain - Final Wound - Buttock Wound Culture - Final Escherichia coli Klebsiella pneumoniae sp pneum Providencia alcalifaciens Lactobacillus hilgardii 08/21/17 18:54 Blood Culture - Preliminary Blood Culture (Wb) - Left Hand No growth in 48 hours. 08/21/17 18:54 Blood Culture - Preliminary Blood Culture (Wb) - Anticubital Left No growth in 48 hours. 08/21/17 19:30 Urine Culture - Final Urine, Catheterized Culture exhibits no growth. Laboratory Tests Past 24 Hrs 08/25/17 08/25/17 08/26/17 08:05 08:05 05:55 Sodium 138 Potassium 2.5 L* Chloride 104 Carbon Dioxide 22.0 BUN 42 H Creatinine 1.69 H Estim Creat Clear Calc 40.20 Est GFR (MDRD) Af Amer 51 L Est GFR (MDRD) Non-Af 42 L BUN/Creatinine Ratio 24.9 H Glucose 147 H Calcium 6.4 L* Phosphorus 2.6 Albumin 1.2 L Vitamin D 25-Hydroxy 14.9 L Vit D 1,25-Dihydroxy Pending POC Glucose 08/26/17 08/26/17 08/25/17 06:05 00:03 17:38 POC Glucose 141 H 156 H 180 H 08/25/17 12:57 POC Glucose 243 H Clinical Impression(s) from Imaging Studies Abdomen/Pelvis CT 08/21/17 11:22 IMPRESSION: Large amount of stool throughout the descending and sigmoid colon as well as the rectum. Stable left-sided hydronephrosis associated with stable renal atrophy. Atherosclerosis. Cholelithiasis. Electronically Signed: Mimi Romero MD at 12:16 EDT Tel , Service support , Chest X-Ray 08/21/17 20:45 IMPRESSION: No acute finding Electronically Signed: Barber Gupta DO at 21:01 EDT Tel , Service support , Renal Ultrasound 08/23/17 10:02 IMPRESSION: There is atrophy of the left kidney with hydronephrosis, as demonstrated on the recent CT. The right kidney is normal in size and echogenicity without hydronephrosis. Electronically Signed: Bell Kapoor MD at 20:08 EDT Tel Direct: [phone], Service support , KUB X-Ray 08/25/17 10:20 IMPRESSION: Distended colon. This is suggestive of ileus of the colon. Follow-up is recommended. 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 Continue antibiotics. Vancomycin can likely be discontinued. 2. Continue local wound care 3. Continue supplemental IV fluid hydration per nephrology recommendations. 4. Advance diet as tolerated 5. Outpatient gastroenterology follow-up 6. Continue Lovenox and Protonix for prophylaxis 7. Aggressive electrolyte repletion. Check serum magnesium level. IMPRESSIONS: 1. Suspected septic shock secondary to gram-negative wound infection Patient's wound culture is growing a gram-negative selwyn. This is possibly the source of patient's decompensation. The patient will remain on antibiotics accordingly. Vasopressor support has been weaned off and the patient remains hemodynamically stable. The patient supplemental IV fluid hydration will be continued per nephrology recommendations. 2. Chronic diarrhea Etiology is unclear. The patient underwent colonoscopy in June which was not successful despite a 2-day bowel prep. If the patient's chronic sacral wounds continue to become infected from diarrhea may need to consider diverting/permanent colostomy. However, at this time, the patient is wishing to obtain a second opinion from a GI provider following recovery from his acute illness. Surgery continues to follow accordingly. This will likely require outpatient gastroenterology follow-up. 3. Acute kidney injury/hypokalemia/hypocalcemia Likely secondary to septic shock and subsequent ischemic ATN. The patient's hemodynamics have been stabilized at this time. Nephrology is following. Continue to monitor urine output closely. No acute indication for renal replacement therapy. Continue bicarbonate containing supplemental IV fluids per nephrology recommendations. Aggressive electrolyte repletion. Check serum magnesium level. 4. Paroxysmal SVT Patient has been in sinus tachycardia most of the time. However, periodic episodes of SVT with rates in the 150s have been noted. Cardiology is following to assist with medical management. 5. Diabetes mellitus type 2/hypothyroidism/T4 paraplegia/poor history Complicates care, management, recovery and prognosis. Continue Synthroid per home regimen. Advance diet as tolerated. This note was generated with [employer] dictation software. It may contain incorrect words, spelling, and punctuation that were not noted in checking the note before signing. Code Visit Inpatient E&M: 77726 Subs Hosp L2
--- NOTE | 2017-08-26 07:42 | PN_ITS ---
Patient Problems: Active and Suspected Problems Abdominal pain (Acute) History of right above knee amputation (Acute) Acute kidney injury (Acute) Complicated UTI (urinary tract infection) (Acute) Constipation (Acute) Subjective: The patient was seen and examined at the bedside this morning. Events from the last 24 hours have been reviewed. The patient currently has a low-grade fever, but remains hemodynamically stable and is maintaining appropriate oxygen saturations on room air. The patient is currently overall net +10.5 L for the admission. Creatinine has improved to 1.69 this morning. Potassium is low at 2.5. Improvement in diarrhea has been noted. Objective: The patient's most recent lab work, culture data and imaging studies have all been personally reviewed. Wound culture dated August 21 was polymicrobial in nature with E. coli, Klebsiella, and Providencia identified. Blood and urine cultures have shown no growth to date. C. difficile was negative. Stool for occult blood was positive. Surface echocardiogram revealed normal LV size and function with an ejection fraction of 65% and evidence of stage I diastolic dysfunction. - Physical Exam General: Alert, Cooperative, No apparent distress HEENT: Atraumatic, PERRLA, Normocephalic Oral: No Gingival or Mucosal Lesions/ Ulcerations Neck: Supple, No Nodes, Trachea Midline Lungs: No rhonchi, No wheeze, No rales, Diminished Cardiovascular: Regular rate, Regular Rhythm, Normal S1, Normal S2, No murmurs Abdomen: Bowel Sounds Present, Soft, Non Tender Extremities: No clubbing, No cyanosis, No edema, - - Right AKA Skin: - - No significant change from previous. Musculoskeletal: No Muscle Wasting Lymphatic: No Cervical, Supraclavicular, or Inguinal Adenopathy Neurological: - - Baseline paraplegia Psych/Mental Status: Normal Affect, Appropriate Vital Signs Temp Pulse Resp BP Pulse Ox 99.3 F H 93 18 137/70 H 100 08/26/17 02:22 08/26/17 02:22 08/26/17 02:22 08/26/17 02:22 08/26/17 02:22 Oxygen Delivery Method Room Air Weight: 217 lb 6.012 oz Body Mass Index (BMI) 22.6 Intake and Output for Last 24 Hours 08/24/17 08/25/17 08/26/17 23:59 23:59 23:59 Intake Total 2533.5 / 2533.5 1965 2858 / 2858 Output Total 700 / 700 1000 / 1000 775 / 775 Balance 1833.5 / 1833.5 966 / 966 208 / 2083 Microbiology Past 72 Hours 08/25/17 15:30 C. difficile DNA Amplification - Final Stool 08/25/17 15:30 Stool Occult Blood (DWYANE) - Final Stool Occult Blood Positive 08/21/17 23:00 Gram Stain - Final Wound - Buttock Wound Culture - Final Escherichia coli Klebsiella pneumoniae sp pneum Providencia alcalifaciens Lactobacillus hilgardii 08/21/17 18:54 Blood Culture - Preliminary Blood Culture (Wb) - Left Hand No growth in 48 hours. 08/21/17 18:54 Blood Culture - Preliminary Blood Culture (Wb) - Anticubital Left No growth in 48 hours. 08/21/17 19:30 Urine Culture - Final Urine, Catheterized Culture exhibits no growth. Laboratory Tests Past 24 Hrs 08/25/17 08/25/17 08/26/17 08:05 08:05 05:55 Sodium 138 Potassium 2.5 L* Chloride 104 Carbon Dioxide 22.0 BUN 42 H Creatinine 1.69 H Estim Creat Clear Calc 40.20 Est GFR (MDRD) Af Amer 51 L Est GFR (MDRD) Non-Af 42 L BUN/Creatinine Ratio 24.9 H Glucose 147 H Calcium 6.4 L* Phosphorus 2.6 Albumin 1.2 L Vitamin D 25-Hydroxy 14.9 L Vit D 1,25-Dihydroxy Pending POC Glucose 08/26/17 08/26/17 08/25/17 06:05 00:03 17:38 POC Glucose 141 H 156 H 180 H 08/25/17 12:57 POC Glucose 243 H Clinical Impression(s) from Imaging Studies Abdomen/Pelvis CT 08/21/17 11:22 IMPRESSION: Large amount of stool throughout the descending and sigmoid colon as well as the rectum. Stable left-sided hydronephrosis associated with stable renal atrophy. Atherosclerosis. Cholelithiasis. Electronically Signed: Mimi Romero MD at 12:16 EDT Tel , Service support , Chest X-Ray 08/21/17 20:45 IMPRESSION: No acute finding Electronically Signed: Barber Gupta DO at 21:01 EDT Tel , Service support , Renal Ultrasound 08/23/17 10:02 IMPRESSION: There is atrophy of the left kidney with hydronephrosis, as demonstrated on the recent CT. The right kidney is normal in size and echogenicity without hydronephrosis. Electronically Signed: Bell Kapoor MD at 20:08 EDT Tel Direct: [phone], Service support , KUB X-Ray 08/25/17 10:20 IMPRESSION: Distended colon. This is suggestive of ileus of the colon. Follow-up is recommended. 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 Continue antibiotics. Vancomycin can likely be discontinued. 2. Continue local wound care 3. Continue supplemental IV fluid hydration per nephrology recommendations. 4. Advance diet as tolerated 5. Outpatient gastroenterology follow-up 6. Continue Lovenox and Protonix for prophylaxis 7. Aggressive electrolyte repletion. Check serum magnesium level. IMPRESSIONS: 1. Suspected septic shock secondary to gram-negative wound infection Patient's wound culture is growing a gram-negative selwyn. This is possibly the source of patient's decompensation. The patient will remain on antibiotics accordingly. Vasopressor support has been weaned off and the patient remains hemodynamically stable. The patient supplemental IV fluid hydration will be continued per nephrology recommendations. 2. Chronic diarrhea Etiology is unclear. The patient underwent colonoscopy in June which was not successful despite a 2-day bowel prep. If the patient's chronic sacral wounds continue to become infected from diarrhea may need to consider diverting/ permanent colostomy. However, at this time, the patient is wishing to obtain a second opinion from a GI provider following recovery from his acute illness. Surgery continues to follow accordingly. This will likely require outpatient gastroenterology follow-up. 3. Acute kidney injury/hypokalemia/hypocalcemia Likely secondary to septic shock and subsequent ischemic ATN. The patient's hemodynamics have been stabilized at this time. Nephrology is following. Continue to monitor urine output closely. No acute indication for renal replacement therapy. Continue bicarbonate containing supplemental IV fluids per nephrology recommendations. Aggressive electrolyte repletion. Check serum magnesium level. 4. Paroxysmal SVT Patient has been in sinus tachycardia most of the time. However, periodic episodes of SVT with rates in the 150s have been noted. Cardiology is following to assist with medical management. 5. Diabetes mellitus type 2/hypothyroidism/T4 paraplegia/poor history Complicates care, management, recovery and prognosis. Continue Synthroid per home regimen. Advance diet as tolerated. This note was generated with [employer] dictation software. It may contain incorrect words, spelling, and punctuation that were not noted in checking the note before signing. Code Visit Inpatient E&M: 12356 Subs Hosp L2
--- NOTE | 2017-08-26 07:45 | PN.CARD_ITS ---
Subjectve: Patient seen and evaluated. Objective: Vital Signs Temp Pulse Resp BP Pulse Ox 99.3 F H 93 18 137/70 H 100 08/26/17 02:22 08/26/17 02:22 08/26/17 02:22 08/26/17 02:22 08/26/17 02:22 Oxygen Delivery Method Room Air Weight: 217 lb 6.012 oz Body Mass Index (BMI) 22.6 Intake and Output for Last 24 Hours 08/24/17 08/25/17 08/26/17 23:59 23:59 23:59 Intake Total 2533.5 / 2533.5 1965 / 1965 2858 / 2858 Output Total 700 / 700 1000 / 1000 775 / 775 Balance 1833.5 / 1833.5 966 / 966 2082 / 2082 General: Awake, Alert, Oriented x 3 HEENT: PERRL, EOMI, Sclera Non Icteric Neck: Supple, Good ROM, No Lymph Node Enlargement Lungs: Clear to auscultation Cardiovascular: Regular Rhythm, Normal S1, Normal S2, No Murmurs, No Rubs, No Gallops Vascular: No Carotid Bruits, Normal Femoral Pulses, Normal Radial Pulses, Normal Dorsalis Pedal Pulse, Normal Posterior Tibial Pulses Abdomen: Bowel Sounds Present, Soft, Non Tender, No HSM, No Organomegaly Extremities: No Cyanosis, No Clubbing, No edema Neurological: No Focal Motor or Sensory Deficit 08/26/17 05:55: Sodium 138, Potassium 2.5 L*, Chloride 104, Carbon Dioxide 22.0 , BUN 42 H, Creatinine 1.69 H, Est GFR (MDRD) Af Amer 51 L, Est GFR (MDRD) Non- Af 42 L, BUN/Creatinine Ratio 24.9 H, Glucose 147 H, Calcium 6.4 L*, Phosphorus 2.6 Rhythm: EKG: ECHO: Stress Test: Cardiac Cath: PCI: CT Surgery: Holter monitor: EPS: PPM: CXR: Chest CT Scan: Medical Necessity - Tobacco Use Smoking Status: Never smoker Assessment/Plan 1. Sinus tachycardia. The above appears to have resolved. His sepsis is also under control. My recommendation at this time will be to discontinue the amiodarone and put him on a beta-jose with low-dose Lopressor 25 mg twice a day. We will sign off for now. Thank you for allowing me to participate in the care of your patient. Please don't hesitate to call if any issues arise
[2017-08-26 08:20] VITALS: BP 138/68; PULSE 86; RESP 16; TEMP 37; O2SAT 100
[2017-08-26 08:29] LABS: Magnesium 1.3 mg/dL (1.6-2.6)
[2017-08-26] MEDS: Calcium Carbonate 500 MG Tablet PO ×2 (08:51→17:14)
[2017-08-26 09:40] LABS: Pathologist Review Reviewed
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
--- NOTE | 2017-08-26 11:08 | CASEMGMT ---
Social Work Note SW met with pt as SNF is being recommended at discharge. SW introduced self and role at [facility]. Pt is alert and orientated x3. SW informed pt that SNF is being recommended for pt at discharge for rehabilitation. Pt states that he wishes to discharge home as he has home health care, home health nurse and home health aide that assists him. Pt also states that he has friends to help him at home. SW informed pt that Doctor Dirk and PT/OT are recommending SNF at discharge. Pt once again states that he wishes to discharge home. Pt states that he was at [facility] in the past and didn't like it. SW asked pt if this worker can provide list of in network facilities for pt. Pt agreeable to being provided list of in network facilities. Pt states that he will need to talk to his family today about SNF and that his family will be in later today. Pt denied wanting this worker to call his family and once again states his family will be in later today and this worker can talk to him and his family when they arrive. SW provided pt with list of in network facilities. SW encouraged pt to pick out a facility today so that this worker can send a referral today. Pt states understanding. Pt denied additional needs or concerns at this time. SW will check back in with pt later today when his family arrives. Plan: SNF pending acceptance and pre-cert Bela Isaac [employer], MANAGER [employer]MI[employer]
[2017-08-26 11:13] VITALS: PULSE 86
[2017-08-26] MEDS: Metoprolol Tartrate 25 MG Tablet PO ×2 (11:13→21:45)
[2017-08-26] MEDS: Pantoprazole Sodium 40 MG Tablet PO (11:14)
[2017-08-26] MEDS: Ascorbic Acid 500 MG Tablet 1000 MG PO (11:14)
[2017-08-26] MEDS: Menthol/Lanolin/Calamine/Znox 113 GM Tube 1 APPLIC TOPICAL ×2 (11:30→21:46)
[2017-08-26] MEDS: CHLORHEXIDINE GLUC 2% CLOTH 1 EACH TOWELETTE TOPICAL (11:33)
--- NOTE | 2017-08-26 11:33 | MRI_ITS ---
STUDY: MRI LEFT ANKLE WITHOUT CONTRAST REASON FOR EXAM: Male, 71 years old. Septic shock. Nonhealing wound. Please. TECHNIQUE: Standardized fat and water weighted pulse sequences were obtained in all 3 orthogonal planes. COMPARISON: None. FINDINGS: There is soft tissue swelling of the lower leg with skin thickening on the lateral aspect. There is marrow edema and T2 signal hyperintensity of the lateral malleolus consistent with osteomyelitis, series 5 image . There is spurring of the medial malleolus with fragmentation. Normal posterior tibialis tendon. Normal flexor digitorum longus tendon. Normal flexor hallucis longus tendon. Normal peroneus longus and brevis tendons. Normal tibialis anterior tendon. Normal extensor hallucis longus tendon. Normal extensor digitorum longus tendons. Normal Achilles tendon and teno-osseous insertion. Normal plantar fascia. Normal plantar calcaneal tubercles. Normal intrinsic muscles of the rearfoot. Normal distal tibiofibular syndesmotic ligamentous complex. Normal lateral ligamentous complex. Normal subtalar ligaments and sinus tarsi. Normal deltoid ligamentous complexes. Normal plantar calcaneonavicular (spring) ligament. Mild spurring of the tibiotalar articulation. Normal talar dome. Normal subtalar articulations. Normal talonavicular articulation. Normal calcaneocuboid articulation. Normal navicular-cuneiform articulations. MRI/Lower Ext Joint Only (Routine) IMPRESSION: Marrow edema with contiguous spread osteomyelitis of the lateral malleolus. Electronically Signed: Roldan Mattson MD at 20:57 EDT , Service support ,
--- NOTE | 2017-08-26 11:40 | PCM.PN.REN ---
Patient Problems: Active and Suspected Problems Abdominal pain (Acute) History of right above knee amputation (Acute) Acute kidney injury (Acute) Complicated UTI (urinary tract infection) (Acute) Constipation (Acute) Subjective: She still complaining of diarrhea. Potassium level is low at 2.5. Magnesium level is low at 1.3. Patient is receiving IV potassium and IV magnesium this morning. No acute event No vomiting. No nausea - Physical Exam General: Alert, Oriented x3 HEENT: Atraumatic Oral: Moist Mucosa Neck: Supple, No JVD Lungs: Clear to auscultation, Normal air movement, No rhonchi, No wheeze Cardiovascular: Regular rate, Regular Rhythm, Normal S1, Normal S2 Abdomen: Bowel Sounds Present, Non Tender, Distended Extremities: No clubbing, No cyanosis, - - 1 edema of the left lower extremity Skin: No rashes Neurological: Cranial nerves II-XII grossly intact, Neuro grossly intact Psych/Mental Status: Normal Affect Vital Signs Temp Pulse Resp BP Pulse Ox 98.6 F 86 16 138/68 H 100 08/26/17 08:20 08/26/17 11:13 08/26/17 08:20 08/26/17 08:20 08/26/17 08:20 Oxygen Delivery Method Room Air Weight: 98.6 kg Body Mass Index (BMI) 22.6 Intake and Output for Last 24 Hours 08/24/17 08/25/17 08/26/17 23:59 23:59 23:59 Intake Total 2533.5 / 2533.5 1965 / 1965 2858 / 2858 Output Total 700 / 700 1000 / 1000 775 / 775 Balance 1833.5 / 1833.5 966 / 966 2083 / 2083 Microbiology Past 72 Hours 08/25/17 15:30 C. difficile DNA Amplification - Final Stool 08/25/17 15:30 Stool Occult Blood (DWAYNE) - Final Stool Occult Blood Positive 08/21/17 23:00 Gram Stain - Final Wound - Buttock Wound Culture - Final Escherichia coli Klebsiella pneumoniae sp pneum Providencia alcalifaciens Lactobacillus hilgardii 08/21/17 18:54 Blood Culture - Preliminary Blood Culture (Wb) - Left Hand No growth in 48 hours. 08/21/17 18:54 Blood Culture - Preliminary Blood Culture (Wb) - Anticubital Left No growth in 48 hours. 08/21/17 19:30 Urine Culture - Final Urine, Catheterized Culture exhibits no growth. Laboratory Tests Past 24 Hrs 08/23/17 08/26/17 08/26/17 04:00 05:55 05:55 Diff [address] Review Reviewed Sodium 138 Potassium 2.5 L* Chloride 104 Carbon Dioxide 22.0 BUN 42 H Creatinine 1.69 H Estim Creat Clear Calc 40.20 Est GFR (MDRD) Af Amer 51 L Est GFR (MDRD) Non-Af 42 L BUN/Creatinine Ratio 24.9 H Glucose 147 H Calcium 6.4 L* Phosphorus 2.6 Magnesium 1.3 L Albumin 1.2 L POC Glucose 08/26/17 08/26/17 08/25/17 06:05 00:03 17:38 POC Glucose 141 H 156 H 180 H 08/25/17 12:57 POC Glucose 243 H Medical Necessity - Tobacco Use Smoking Status: Never smoker Assessment/Plan All Active Problems Abdominal pain (Acute) History of right above knee amputation (Acute) Acute kidney injury (Acute) Septic shock (Acute) Pressure ulcer of sacral region, stage 3 (Acute) Scrotal ulcer (Acute) 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 non oliguric URSZULA is most probably ATN induced by ischemia CT showed chronic left hydronephrosis with left atrophic kidney Cr is improving. Last Cr trend 2.0>1.6 mg/dL Non oliguric. UOP 1000 cc in the 24 hours Continue IVF at 100 cc/hour No indication for HD Keep MAP >65 Check BMP in am 2- high anion gap acidosis. resolved. Will d/c NAHCO3 drip due to hypoakelmia. Will change fluid to Ns at 100 cc/hour 3- hypokalemia: Most probably related to GI Na loss . is being replaced IV. Check K at 3 pm 4- hypomagnesemia: being replaced IV. Check Mg at 3 pm 5- Septic shock due to infected DU . Better. Off BP pressors. On Abx as per primary/ICU service 6- Diarrhea . Might need diverting colostomy as per the primary service/ surgical team Will continue to follow ALAN JACOBSON MD
--- NOTE | 2017-08-26 12:13 | NURSING ---
wound photo: left lateral malleolus
--- NOTE | 2017-08-26 12:14 | NURSING ---
wound photo: francesco-anal/scrotal
--- NOTE | 2017-08-26 12:14 | NURSING ---
wound photo: sacrum
[2017-08-26] MEDS: LORazepam 0.5 MG Tablet PO (12:38)
[2017-08-26 12:50] LABS: Bedside Glucose 191 mg/dL (70-110)
[2017-08-26 14:20] VITALS: BP 150/81; PULSE 90; RESP 16; TEMP 37.3; O2SAT 99
--- NOTE | 2017-08-26 14:25 | CHAPLAIN ---
Type of Pastoral Visit _x__ Initial Visit ___ Follow-up Visit ___ On-call Visit ___ General Patient Visit ___ Spiritual Assessment ___ Family Conference ___ Bereavement ___ Rapid Response ___ Code Blue ___ Other (describe below) Pastoral Care Referral From _x__ Patient ___ Family ___ Nurse ___ Physician ___ Soap Chipper ___ Carroter ___ Other (describe below) Sacrament/Intervention _x__ Active listening ___ Anointing ___ Holiness ___ Bereavement ___ Communion _x__ Love exploration ___ ___ Life review _x__ Prayer ___ Reconciliation ___ Sacrament of Sick _x__ Supportive presence ___ Wedding ___ Other (describe below) Pastoral Comments patient goal is to have answers for cause of his illness
--- NOTE | 2017-08-26 14:39 | CASEMGMT ---
Social Work Note SONIA met with pt again to confirm discharge plans. Pt states that he has been talking to his daughter about discharge plans and nothing is confirmed yet. SW once again informed pt that SNF is being recommended for rehabilitation and for wound care. Pt gave this worker permission to call his daughter Ivone. SW placed a call to pt's daughter Ivone. Ivone states that she has been talking to pt about discharge plans. Ivone states that pt really wants to go home as pt didn't have a good experience at [facility]. Ivone states that pt has nurses everyday to come into his home and change dressing changes and to turn pt. Ivone also states that she and a family friend Lexi also takes care of pt. SW informed Ivone that the recommendation is for pt to go to SNF for rehabilitation and wound care. Ivone states understanding. SONIA provided verbal list of in network facilities including [facility] and [facility]. Ivone states that she will be in to [facility] later today and will continue to discuss discharge plans with pt. SONIA provided [facility] with this worker's direct number. SONIA will continue to follow and assist with discharge planning. Plan: SNF pending acceptance and pre-cert vs. Home with resumption of services Bela Isaac DECK ENGINE OPERATOR, SANDBLASTER STONE
[2017-08-26 15:27] LABS: Albumin, Serum 1.4 g/dL (3.2-5.0); BUN 46 mg/dL (7-18); BUN/Creat Ratio 27.9 RATIO (10-20); Calcium,Total 6.5 mg/dL (8.5-10.1); Chloride 104 mmol/L (98-107); Creatinine, Serum 1.65 mg/dL (0.70-1.30); EST Glomerular Filtration Rate 44 mL/min (>60); Est Glom Filt Rate - Afr Amer 53 mL/min (>60); Estimated Creatinine Clearance 41.17 ml/min; Glucose 134 mg/dL (74-106); Magnesium 1.5 mg/dL (1.6-2.6); Phosphorus 2.3 mg/dL (2.5-4.9); Potassium 3.2 mmol/L (3.5-5.1); Sodium Level 138 mmol/L (136-145)
[2017-08-26 17:35] LABS: Bedside Glucose 150 mg/dL (70-110)
[2017-08-26 20:25] VITALS: BP 140/67; PULSE 95; RESP 16; TEMP 36.7; O2SAT 98
[2017-08-26 21:45] VITALS: PULSE 95
[2017-08-26] MEDS: Pravastatin 40 MG Tablet PO (21:45)
[2017-08-26] MEDS: 0.9% NaCl Peripheral Flush Adult/Peds IV (22:14)
[2017-08-27 00:35] LABS: Bedside Glucose 162 mg/dL (70-110)
[2017-08-27 02:25] VITALS: BP 124/59; PULSE 91; RESP 18; TEMP 36.8; O2SAT 97
[2017-08-27] MEDS: 0.9% NaCl Peripheral Flush Adult/Peds IV (06:06)
[2017-08-27] MEDS: Levothyroxine 25 MCG TABLET PO (06:07)
[2017-08-27] MEDS: Sucralfate 1 GM Tablet PO ×4 (06:08→20:57)
[2017-08-27 06:20] LABS: Bedside Glucose 138 mg/dL (70-110)
[2017-08-27 06:25] LABS: Albumin, Serum 1.4 g/dL (3.2-5.0); Anion Gap 8 (5-15); BUN 44 mg/dL (7-18); BUN/Creat Ratio 30.1 RATIO (10-20); Calcium,Total 6.7 mg/dL (8.5-10.1); Chloride 107 mmol/L (98-107); Creatinine, Serum 1.46 mg/dL (0.70-1.30); EST Glomerular Filtration Rate 50 mL/min (>60); Est Glom Filt Rate - Afr Amer 61 mL/min (>60); Estimated Creatinine Clearance 46.53 ml/min; Glucose 136 mg/dL (74-106); Magnesium 2.1 mg/dL (1.6-2.6); Phosphorus 2.1 mg/dL (2.5-4.9); Potassium 3.4 mmol/L (3.5-5.1); Sodium Level 141 mmol/L (136-145)
--- NOTE | 2017-08-27 07:09 | PCM.PROGNOTE ---
Patient Problems: Active and Suspected Problems Abdominal pain (Acute) History of right above knee amputation (Acute) Acute kidney injury (Acute) Complicated UTI (urinary tract infection) (Acute) Constipation (Acute) Subjective: The patient was seen and examined at the bedside this morning. Events from the last 24 hours have been reviewed. The patient is currently afebrile, hemodynamically stable and maintaining appropriate oxygen saturations on room air. MRI of the patient's left ankle yesterday did reveal continuous spread osteomyelitis of the lateral malleolus. This morning, the patient reports that, in general, he does not feel as well as he did previously. He reports the presence of an upset stomach, along with scrotal discomfort due to swelling. He did report an episode of diarrhea this morning. Objective: The patient's most recent lab work, culture data and imaging studies have all been personally reviewed. Wound culture dated August 21 was polymicrobial in nature with E. coli, Klebsiella, and Providencia identified. Blood and urine cultures have shown no growth to date. C. difficile was negative. Stool for occult blood was positive. Surface echocardiogram revealed normal LV size and function with an ejection fraction of 65% and evidence of stage I diastolic dysfunction. - Physical Exam General: Alert, Cooperative, No apparent distress HEENT: Atraumatic, PERRLA, Normocephalic Oral: Moist Mucosa Neck: Supple, No Nodes, Trachea Midline, - - Right IJ central venous catheter remains in place. Lungs: No rhonchi, No wheeze, No rales, Diminished Cardiovascular: Regular rate, Regular Rhythm, Normal S1, Normal S2, No murmurs, No rub noted, No Gallop Abdomen: Bowel Sounds Present, Soft, Non Tender Extremities: No clubbing, No cyanosis, No edema, - - Right AKA Skin: - - No significant change from previous. Musculoskeletal: No Muscle Wasting Lymphatic: No Cervical, Supraclavicular, or Inguinal Adenopathy Neurological: - - Baseline paraplegia. No focal deficits. Psych/Mental Status: Flat Affect Vital Signs Temp Pulse Resp BP Pulse Ox 98.3 F 91 18 124/59 H 97 08/27/17 02:25 08/27/17 02:25 08/27/17 02:25 08/27/17 02:25 08/27/17 02:25 Oxygen Delivery Method Room Air Weight: 223 lb 5.252 oz Body Mass Index (BMI) 22.6 Intake and Output for Last 24 Hours 08/25/17 08/26/17 08/27/17 23:59 23:59 23:59 Intake Total 1965 / 1965 4057 / 4057 847 / 847 Output Total 1000 / 1000 1525 / 1525 575 / 575 Balance 966 / 966 2532 / 2532 272 / 272 Microbiology Past 72 Hours 08/26/17 17:10 Stool Lactoferrin - Final Stool 08/25/17 15:30 C. difficile DNA Amplification - Final Stool 08/25/17 15:30 Stool Occult Blood (DWAYNE) - Final Stool Occult Blood Positive 08/21/17 23:00 Gram Stain - Final Wound - Buttock Wound Culture - Final Escherichia coli Klebsiella pneumoniae sp pneum Providencia alcalifaciens Lactobacillus hilgardii 08/21/17 18:54 Blood Culture - Preliminary Blood Culture (Wb) - Left Hand No growth in 48 hours. 08/21/17 18:54 Blood Culture - Preliminary Blood Culture (Wb) - Anticubital Left No growth in 48 hours. 08/21/17 19:30 Urine Culture - Final Urine, Catheterized Culture exhibits no growth. Laboratory Tests Past 24 Hrs 08/23/17 08/26/17 08/26/17 04:00 05:55 15:00 Diff Path Review Reviewed Sodium 138 Potassium 3.2 L Chloride 104 Carbon Dioxide 25.0 Anion Gap BUN 46 H Creatinine 1.65 H Estim Creat Clear Calc 41.17 Est GFR (MDRD) Af Amer 53 L Est GFR (MDRD) Non-Af 44 L BUN/Creatinine Ratio 27.9 H Glucose 134 H Calcium 6.5 L* Phosphorus 2.3 L Magnesium 1.3 L 1.5 L Albumin 1.4 L 08/27/17 05:35 Diff Path Review Sodium 141 Potassium 3.4 L Chloride 107 Carbon Dioxide 26.0 Anion Gap 8 BUN 44 H Creatinine 1.46 H Estim Creat Clear Calc 46.53 Est GFR (MDRD) Af Amer 61 Est GFR (MDRD) Non-Af 50 L BUN/Creatinine Ratio 30.1 H Glucose 136 H Calcium 6.7 L Phosphorus 2.1 L Magnesium 2.1 Albumin 1.4 L POC Glucose 08/27/17 08/27/17 08/26/17 06:06 00:27 17:12 POC Glucose 138 H 162 H 150 H 08/26/17 12:48 POC Glucose 191 H Clinical Impression(s) from Imaging Studies Abdomen/Pelvis CT 08/21/17 11:22 IMPRESSION: Large amount of stool throughout the descending and sigmoid colon as well as the rectum. Stable left-sided hydronephrosis associated with stable renal atrophy. Atherosclerosis. Cholelithiasis. Electronically Signed: Mimi Romero MD at 12:16 EDT Tel , Service support , Chest X-Ray 08/21/17 20:45 IMPRESSION: No acute finding Electronically Signed: Barber Gupta DO at 21:01 EDT Tel , Service support , Renal Ultrasound 08/23/17 10:02 IMPRESSION: There is atrophy of the left kidney with hydronephrosis, as demonstrated on the recent CT. The right kidney is normal in size and echogenicity without hydronephrosis. Electronically Signed: Bell Kapoor MD at 20:08 EDT Tel Direct: [phone], Service support , KUB X-Ray 08/25/17 10:20 IMPRESSION: Distended colon. This is suggestive of ileus of the colon. Follow-up is recommended. Electronically Signed: Hayder Cisneros MD at 13:29 EDT Tel [phone], Service support , Lower Extremity MRI 08/26/17 11:33 IMPRESSION: Marrow edema with contiguous spread osteomyelitis of the lateral malleolus. 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 Continue antibiotics. ID consultation is pending. 2. Continue local wound care 3. Advance diet as tolerated 4. Outpatient gastroenterology follow-up 5. Continue Lovenox and Protonix for prophylaxis 6. Additional electrolyte repletion. IMPRESSIONS: 1. Transient distributive shock of unclear etiology Patient's wound culture is growing a gram-negative selwyn. However, the patient's wounds do not appear to be acutely infected. The remainder of the patient's infectious workup has been negative to date. Nevertheless, he continues on antibiotics and coverage for the pathogens isolated from his wound culture. MRI of the patient's left ankle did reveal evidence of osteomyelitis, for which an infectious disease consultation is currently pending. 2. Osteomyelitis of left lateral malleolus Await input from infectious diseases regarding management. 3. Chronic diarrhea Etiology is unclear. The patient underwent colonoscopy in June which was not successful despite a 2-day bowel prep. If the patient's chronic sacral wounds continue to become infected from diarrhea may need to consider diverting/permanent colostomy. However, at this time, the patient is wishing to obtain a second opinion from a GI provider following recovery from his acute illness. Surgery continues to follow accordingly. This will likely require outpatient gastroenterology follow-up. 4. Acute kidney injury/hypokalemia/hypocalcemia Improving. Likely secondary to transient hemodynamic instability and subsequent ischemic ATN. The patient's hemodynamics have been stabilized at this time. Nephrology is following. Continue to monitor urine output closely. No acute indication for renal replacement therapy. Additional potassium repletion as ordered. 5. Paroxysmal SVT Patient has been in sinus tachycardia most of the time. However, periodic episodes of SVT with rates in the 150s have been noted. Cardiology is following to assist with medical management. Maintain a potassium greater than 4 and magnesium greater than 2. 6. Diabetes mellitus type 2/hypothyroidism/T4 paraplegia/poor history Complicates care, management, recovery and prognosis. Continue Synthroid per home regimen. Advance diet as tolerated. This note was generated with atVenuation software. It may contain incorrect words, spelling, and punctuation that were not noted in checking the note before signing. Code Visit Inpatient E&M: 37633 Subs Hosp L2
--- NOTE | 2017-08-27 07:16 | PN_ITS ---
Patient Problems: Active and Suspected Problems Abdominal pain (Acute) History of right above knee amputation (Acute) Acute kidney injury (Acute) Complicated UTI (urinary tract infection) (Acute) Constipation (Acute) Subjective: The patient was seen and examined at the bedside this morning. Events from the last 24 hours have been reviewed. The patient is currently afebrile, hemodynamically stable and maintaining appropriate oxygen saturations on room air. MRI of the patient's left ankle yesterday did reveal continuous spread osteomyelitis of the lateral malleolus. This morning, the patient reports that , in general, he does not feel as well as he did previously. He reports the presence of an upset stomach, along with scrotal discomfort due to swelling. He did report an episode of diarrhea this morning. Objective: The patient's most recent lab work, culture data and imaging studies have all been personally reviewed. Wound culture dated August 21 was polymicrobial in nature with E. coli, Klebsiella, and Providencia identified. Blood and urine cultures have shown no growth to date. C. difficile was negative. Stool for occult blood was positive. Surface echocardiogram revealed normal LV size and function with an ejection fraction of 65% and evidence of stage I diastolic dysfunction. - Physical Exam General: Alert, Cooperative, No apparent distress HEENT: Atraumatic, PERRLA, Normocephalic Oral: Moist Mucosa Neck: Supple, No Nodes, Trachea Midline, - - Right IJ central venous catheter remains in place. Lungs: No rhonchi, No wheeze, No rales, Diminished Cardiovascular: Regular rate, Regular Rhythm, Normal S1, Normal S2, No murmurs, No rub noted, No Gallop Abdomen: Bowel Sounds Present, Soft, Non Tender Extremities: No clubbing, No cyanosis, No edema, - - Right AKA Skin: - - No significant change from previous. Musculoskeletal: No Muscle Wasting Lymphatic: No Cervical, Supraclavicular, or Inguinal Adenopathy Neurological: - - Baseline paraplegia. No focal deficits. Psych/Mental Status: Flat Affect Vital Signs Temp Pulse Resp BP Pulse Ox 98.3 F 91 18 124/59 H 97 08/27/17 02:25 08/27/17 02:25 08/27/17 02:25 08/27/17 02:25 08/27/17 02:25 Oxygen Delivery Method Room Air Weight: 223 lb 5.252 oz Body Mass Index (BMI) 22.6 Intake and Output for Last 24 Hours 08/25/17 08/26/17 08/27/17 23:59 23:59 23:59 Intake Total 1965 / 1965 4057 / 4057 847 / 847 Output Total 1000 / 1000 1525 / 1525 575 / 575 Balance 966 / 966 2532 / 2532 272 / 272 Microbiology Past 72 Hours 08/26/17 17:10 Stool Lactoferrin - Final Stool 08/25/17 15:30 C. difficile DNA Amplification - Final Stool 08/25/17 15:30 Stool Occult Blood (DWAYNE) - Final Stool Occult Blood Positive 08/21/17 23:00 Gram Stain - Final Wound - Buttock Wound Culture - Final Escherichia coli Klebsiella pneumoniae sp pneum Providencia alcalifaciens Lactobacillus hilgardii 08/21/17 18:54 Blood Culture - Preliminary Blood Culture (Wb) - Left Hand No growth in 48 hours. 08/21/17 18:54 Blood Culture - Preliminary Blood Culture (Wb) - Anticubital Left No growth in 48 hours. 08/21/17 19:30 Urine Culture - Final Urine, Catheterized Culture exhibits no growth. Laboratory Tests Past 24 Hrs 08/23/17 08/26/17 08/26/17 04:00 05:55 15:00 Diff Path Review Reviewed Sodium 138 Potassium 3.2 L Chloride 104 Carbon Dioxide 25.0 Anion Gap BUN 46 H Creatinine 1.65 H Estim Creat Clear Calc 41.17 Est GFR (MDRD) Af Amer 53 L Est GFR (MDRD) Non-Af 44 L BUN/Creatinine Ratio 27.9 H Glucose 134 H Calcium 6.5 L* Phosphorus 2.3 L Magnesium 1.3 L 1.5 L Albumin 1.4 L 08/27/17 05:35 Diff Path Review Sodium 141 Potassium 3.4 L Chloride 107 Carbon Dioxide 26.0 Anion Gap 8 BUN 44 H Creatinine 1.46 H Estim Creat Clear Calc 46.53 Est GFR (MDRD) Af Amer 61 Est GFR (MDRD) Non-Af 50 L BUN/Creatinine Ratio 30.1 H Glucose 136 H Calcium 6.7 L Phosphorus 2.1 L Magnesium 2.1 Albumin 1.4 L POC Glucose 08/27/17 08/27/17 08/26/17 06:06 00:27 17:12 POC Glucose 138 H 162 H 150 H 08/26/17 12:48 POC Glucose 191 H Clinical Impression(s) from Imaging Studies Abdomen/Pelvis CT 08/21/17 11:22 IMPRESSION: Large amount of stool throughout the descending and sigmoid colon as well as the rectum. Stable left-sided hydronephrosis associated with stable renal atrophy. Atherosclerosis. Cholelithiasis. Electronically Signed: Mimi Romero MD at 12:16 EDT Tel , Service support , Chest X-Ray 08/21/17 20:45 IMPRESSION: No acute finding Electronically Signed: Barber Gupta DO at 21:01 EDT Tel , Service support , Renal Ultrasound 08/23/17 10:02 IMPRESSION: There is atrophy of the left kidney with hydronephrosis, as demonstrated on the recent CT. The right kidney is normal in size and echogenicity without hydronephrosis. Electronically Signed: Bell Kapoor MD at 20:08 EDT Tel Direct: [phone], Service support , KUB X-Ray 08/25/17 10:20 IMPRESSION: Distended colon. This is suggestive of ileus of the colon. Follow-up is recommended. Electronically Signed: Hayder Cisneros MD at 13:29 EDT Tel [phone], Service support , Lower Extremity MRI 08/26/17 11:33 IMPRESSION: Marrow edema with contiguous spread osteomyelitis of the lateral malleolus. 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 Continue antibiotics. ID consultation is pending. 2. Continue local wound care 3. Advance diet as tolerated 4. Outpatient gastroenterology follow-up 5. Continue Lovenox and Protonix for prophylaxis 6. Additional electrolyte repletion. IMPRESSIONS: 1. Transient distributive shock of unclear etiology Patient's wound culture is growing a gram-negative selwyn. However, the patient's wounds do not appear to be acutely infected. The remainder of the patient's infectious workup has been negative to date. Nevertheless, he continues on antibiotics and coverage for the pathogens isolated from his wound culture. MRI of the patient's left ankle did reveal evidence of osteomyelitis, for which an infectious disease consultation is currently pending. 2. Osteomyelitis of left lateral malleolus Await input from infectious diseases regarding management. 3. Chronic diarrhea Etiology is unclear. The patient underwent colonoscopy in June which was not successful despite a 2-day bowel prep. If the patient's chronic sacral wounds continue to become infected from diarrhea may need to consider diverting/ permanent colostomy. However, at this time, the patient is wishing to obtain a second opinion from a GI provider following recovery from his acute illness. Surgery continues to follow accordingly. This will likely require outpatient gastroenterology follow-up. 4. Acute kidney injury/hypokalemia/hypocalcemia Improving. Likely secondary to transient hemodynamic instability and subsequent ischemic ATN. The patient's hemodynamics have been stabilized at this time. Nephrology is following. Continue to monitor urine output closely. No acute indication for renal replacement therapy. Additional potassium repletion as ordered. 5. Paroxysmal SVT Patient has been in sinus tachycardia most of the time. However, periodic episodes of SVT with rates in the 150s have been noted. Cardiology is following to assist with medical management. Maintain a potassium greater than 4 and magnesium greater than 2. 6. Diabetes mellitus type 2/hypothyroidism/T4 paraplegia/poor history Complicates care, management, recovery and prognosis. Continue Synthroid per home regimen. Advance diet as tolerated. This note was generated with Leap.itation software. It may contain incorrect words, spelling, and punctuation that were not noted in checking the note before signing. Code Visit Inpatient E&M: 31552 Subs Hosp L2
[2017-08-27 08:06] LABS: Bedside Glucose 137 mg/dL (70-110)
[2017-08-27] MEDS: Menthol/Lanolin/Calamine/Znox 113 GM Tube 1 APPLIC TOPICAL ×2 (09:15→21:00)
[2017-08-27] MEDS: Calcium Carbonate 500 MG Tablet PO ×2 (09:16→18:21)
[2017-08-27] MEDS: Pantoprazole Sodium 40 MG Tablet PO (09:17)
[2017-08-27] MEDS: Ascorbic Acid 500 MG Tablet 1000 MG PO (09:17)
[2017-08-27] MEDS: Enoxaparin 40 MG/0.4 ML Syringe SC (09:17)
[2017-08-27 09:21] VITALS: PULSE 103
[2017-08-27] MEDS: Metoprolol Tartrate 25 MG Tablet PO ×2 (09:21→20:57)
[2017-08-27 09:25] VITALS: BP 129/74; PULSE 103; RESP 16; TEMP 37.1; O2SAT 98
--- NOTE | 2017-08-27 09:59 | CASEMGMT ---
Addendum entered by Bela Isaac 08/27/17 10:51: Dr. Cavazos states that wounds look good and pt should be able to return home at discharge. Original Note: Social Work Note SW met with pt to confirm discharge plans. Pt states that he hasn't had the opportunity to talk to his daughter about SNF. Pt is alert and orientated and is adamant about going home at discharge. Per previous notes pt has HHC and private hire aides and his daughter and family friend Lexi are able to help pt at home. Pt confirms this. Pt states I have help at home and want to go home at discharge. Pt denied wanting to go to SNF and states that he will be returning home at discharge. Pt states that now he has to have surgery on his foot and the doctor is trying to get him set up with a gastrologist. Pt adamant about returning home at discharge with resumption of HHC and private aides. Plan: Pt wishes to return home at discharge with resumption of HHC, private hire aides, and help from his daughter Ivone and family friend Lexi Isaac GLUE MIXER, REMOTE MORTGAGE UNDERWRITER
--- NOTE | 2017-08-27 11:41 | PCM.PN.REN ---
Patient Problems: Active and Suspected Problems Abdominal pain (Acute) History of right above knee amputation (Acute) Acute kidney injury (Acute) Complicated UTI (urinary tract infection) (Acute) Constipation (Acute) Subjective: Patient said he feels slightly better today. He still have diarrhea. Still has leg edema and scrotum edema. Patient is receiving IV potassium this morning. No nausea no vomiting. No shortness of breath. No chest pain - Physical Exam General: Alert, Oriented x3 HEENT: Atraumatic Oral: Moist Mucosa Neck: Supple, No JVD Lungs: Clear to auscultation, Normal air movement, No rhonchi, No wheeze Cardiovascular: Regular rate, Regular Rhythm, Normal S1, Normal S2 Abdomen: Bowel Sounds Present, Non Tender, Distended Extremities: No clubbing, No cyanosis, - - +1 edema of the left lower extremity. Right AKA Musculoskeletal: No Tenderness to Palpation of Joints or Extremities Lymphatic: No Cervical, Supraclavicular, or Inguinal Adenopathy Neurological: Cranial nerves II-XII grossly intact, Neuro grossly intact Psych/Mental Status: Normal Affect Vital Signs Temp Pulse Resp BP Pulse Ox 98.3 F 103 H 18 124/59 H 97 08/27/17 02:25 08/27/17 09:21 08/27/17 02:25 08/27/17 02:25 08/27/17 02:25 Oxygen Delivery Method Room Air Weight: 101.3 kg Body Mass Index (BMI) 22.6 Intake and Output for Last 24 Hours 08/25/17 08/26/17 08/27/17 23:59 23:59 23:59 Intake Total 1966 / 1966 4057 / 4057 847 / 847 Output Total 1000 / 1000 1525 / 1525 575 / 575 Balance 966 / 966 2532 / 2532 272 / 272 Microbiology Past 72 Hours 08/26/17 17:10 Enteric Bacteriology - Final Stool 08/21/17 18:54 Blood Culture - Final Blood Culture (Wb) - Left Hand No growth in 5 days. 08/21/17 18:54 Blood Culture - Final Blood Culture (Wb) - Anticubital Left No growth in 5 days. 08/26/17 17:10 Stool Lactoferrin - Final Stool 08/25/17 15:30 C. difficile DNA Amplification - Final Stool 08/25/17 15:30 Stool Occult Blood (DWAYNE) - Final Stool Occult Blood Positive 08/21/17 23:00 Gram Stain - Final Wound - Buttock Wound Culture - Final Escherichia coli Klebsiella pneumoniae sp pneum Providencia alcalifaciens Lactobacillus hilgardii 08/21/17 19:30 Urine Culture - Final Urine, Catheterized Culture exhibits no growth. Laboratory Tests Past 24 Hrs 08/26/17 08/27/17 15:00 05:35 Sodium 138 141 Potassium 3.2 L 3.4 L Chloride 104 107 Carbon Dioxide 25.0 26.0 Anion Gap 8 BUN 46 H 44 H Creatinine 1.65 H 1.46 H Estim Creat Clear Calc 41.17 46.53 Est GFR (MDRD) Af Amer 53 L 61 Est GFR (MDRD) Non-Af 44 L 50 L BUN/Creatinine Ratio 27.9 H 30.1 H Glucose 134 H 136 H Calcium 6.5 L* 6.7 L Phosphorus 2.3 L 2.1 L Magnesium 1.5 L 2.1 Albumin 1.4 L 1.4 L POC Glucose 08/27/17 08/27/17 08/27/17 08:01 06:06 00:27 POC Glucose 137 H 138 H 162 H 08/26/17 08/26/17 17:12 12:48 POC Glucose 150 H 191 H Medical Necessity - Tobacco Use Smoking Status: Never smoker Assessment/Plan All Active Problems Abdominal pain (Acute) History of right above knee amputation (Acute) Acute kidney injury (Acute) Septic shock (Acute) Pressure ulcer of sacral region, stage 3 (Acute) Scrotal ulcer (Acute) 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 non oliguric URSZULA is most probably ATN induced by ischemia CT showed chronic left hydronephrosis with left atrophic kidney Cr is improving. Last Cr trends 2.0>1.6>1.46 mg/dL Non oliguric. UOP 1000 cc in the 24 hours I encouraged p.o. intake Keep MAP >65 Check BMP in am 2- high anion gap acidosis. resolved. 3- hypokalemia: Most probably related to GI Na loss . He is receiving IV potassium replacement. I will start the patient on potassium chloride 40 medical 1 p.o. daily .check K in am 4- hypomagnesemia: Resolved with replacement. 5- Septic shock due to infected DU . Better. Off BP pressors. On Abx as per primary/ICU service 6- Diarrhea . Rule is positive for white cell. C. difficile is negative. Management as per the primary physician might need diverting colostomy as per the primary service/ surgical team Will continue to follow D/W Dr. Dirk JACOBSON MD
[2017-08-27] MEDS: CHLORHEXIDINE GLUC 2% CLOTH 1 EACH TOWELETTE TOPICAL (12:52)
[2017-08-27] MEDS: Na Biphos/Potassium Phosphate PACKET 1 PACKET PO (12:53)
--- NOTE | 2017-08-27 13:12 | NURSING ---
page out for dr castro for clarification on kriders.
[2017-08-27 13:20] LABS: Bedside Glucose 170 mg/dL (70-110)
--- NOTE | 2017-08-27 14:28 | NURSING ---
did not receive call back from dr castro at this time. spoke with dr wagner to clarify kriders. orders to adm 1 more 10 meq krider (total of 3)as this nurse had already spiked the 3rd bag.
--- NOTE | 2017-08-27 15:17 | PCM.HP.ID ---
Problem List (1) Septic shock Status: Acute Reason for Consult: osteo Consulted by: Dr. Cavazos History of Present Illness: The patient is a 71 year old M with paraplegia who presented with diarrhea, weakness. Reports continual diarrhea for several months. He banged L ankle about 2 months ago with chronic wound since then, has not noticed drainage. Came to ED, admitted to icu with septic shock. Given vanc, meropenem. Came off pressors, out of icu now, abx narrowed to unasyn 08/26 based on sacral cx results. L ankle imaging now shows osteo. Full ROS performed and neg except as noted above. - Medical History Past Medical History (Chronic Problems): Chronic Problems Hypercholesterolemia (Chronic) Paraplegia (Chronic) Hyperlipemia (Chronic) Hypertension (Chronic) History of urostomy (Chronic) Kidney failure (Chronic) 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) Hypothyroidism (Chronic) Diabetes mellitus (Chronic) Allergies/Adverse Reactions: Allergies codeine Adverse Reaction (Verified 08/21/17 11:39) heavy sweats prednisone Adverse Reaction (Verified 08/21/17 11:39) headache, heavy sweats Home Medications: Ambulatory Orders Medication Instructions Recorded Metformin HCl 1,000 mg PO BID #0 05/26/14 Ascorbic Acid [C-1000] 1,000 mg PO DAILY 01/02/15 Glimepiride [Amaryl] 4 mg PO DAILY 01/02/15 Levothyroxine [Synthroid] 25 mcg PO DAILY 01/02/15 Metoprolol Tartrate [Lopressor 25 mg PO BID 01/02/15 (beta jose)] colestipol 1 gram tablet 4 gm PO DAILY 05/28/17 omeprazole 40 mg capsule,delayed 40 mg PO QDAY 05/28/17 release pravastatin 10 mg tablet 40 mg PO QHS tab 05/28/17 zinc 50 mg tablet 50 mg PO DAILY 05/28/17 Sucralfate [Carafate] 1 gm PO 4X/DAY #120 tab 06/20/17 Diphenoxylate HCl/Atropine 1 each PO DAILY PRN PRN 08/21/17 [Lomotil 2.5-0.025 mg Tablet] - Social History SMOKING STATUS:: Never smoker Vital Signs Temp Pulse Resp BP Pulse Ox 98.7 F 103 H 16 129/74 H 98 08/27/17 09:25 08/27/17 09:25 08/27/17 09:25 08/27/17 09:25 08/27/17 09:25 Oxygen Delivery Method Room Air Weight: 101.3 kg Body Mass Index (BMI) 22.6 Microbiology Past 72 Hours 08/26/17 17:10 Enteric Bacteriology - Final Stool 08/21/17 18:54 Blood Culture - Final Blood Culture (Wb) - Left Hand No growth in 5 days. 08/21/17 18:54 Blood Culture - Final Blood Culture (Wb) - Anticubital Left No growth in 5 days. 08/26/17 17:10 Stool Lactoferrin - Final Stool 08/25/17 15:30 C. difficile DNA Amplification - Final Stool 08/25/17 15:30 Stool Occult Blood (DWAYNE) - Final Stool Occult Blood Positive 08/21/17 23:00 Gram Stain - Final Wound - Buttock Wound Culture - Final Escherichia coli Klebsiella pneumoniae sp pneum Providencia alcalifaciens Lactobacillus hilgardii Laboratory Tests Past 24 Hrs 08/26/17 08/27/17 15:00 05:35 Sodium 138 141 Potassium 3.2 L 3.4 L Chloride 104 107 Carbon Dioxide 25.0 26.0 Anion Gap 8 BUN 46 H 44 H Creatinine 1.65 H 1.46 H Estim Creat Clear Calc 41.17 46.53 Est GFR (MDRD) Af Amer 53 L 61 Est GFR (MDRD) Non-Af 44 L 50 L BUN/Creatinine Ratio 27.9 H 30.1 H Glucose 134 H 136 H Calcium 6.5 L* 6.7 L Phosphorus 2.3 L 2.1 L Magnesium 1.5 L 2.1 Albumin 1.4 L 1.4 L - Other Studies Radiology: [] reviewed Other Studies: [] Route of nutrition/ use of supplements: [] Nutritional Intake: [] IV Site: [] Lozano Catheter: [] - Physical Exam General: Alert, Oriented x3, Cooperative, No apparent distress HEENT: Atraumatic, PERRLA, EOMI Neck: Supple, No Nodes Lungs: Clear to auscultation, Normal air movement Cardiovascular: Regular rate, Regular Rhythm Abdomen: Soft, Non Tender, Non-Distended Extremities: Edema, - - R aka Skin: Ulcer/ Wound - reviewed photos of L ankle ulcer, sacral wound, scrotal swelling and breakdown IV Site: Central Line, without redness Neurological: Cranial nerves II-XII grossly intact - Assessment/Plan Antibiotics: [] Assessment/Plan: [] Active and Suspected Problems Abdominal pain (Acute) History of right above knee amputation (Acute) Acute kidney injury (Acute) Complicated UTI (urinary tract infection) (Acute) Constipation (Acute) septic shock due to L ankle osteo - no osteo of pelvis seen on CT on admission. Sacral cx with ecoli, kpneumo, lactobacillus, and providencia. Overall much improved, now on unasyn. Recommend podiatry consult for debridement of L ankle. Will order wound cx and mrsa pcr of L ankle. Will order picc; ok for cvc removal once picc is in place. Plan will be for 6 week course of iv abx. chronic diarrhea - enteric pathogen panel neg, cdiff neg. Thank you, will follow, d/w Dr. Cavazos.
[2017-08-27 15:27] VITALS: BP 137/67; PULSE 98; RESP 16; TEMP 37.2; O2SAT 99
--- NOTE | 2017-08-27 17:47 | NURSING ---
corn grower called, aware of order for PICC line. Will call back with a time.
[2017-08-27 18:36] LABS: Bedside Glucose 210 mg/dL (70-110)
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
--- NOTE | 2017-08-27 19:45 | NURSING ---
voice studies director called and spoke with Simran PEDROZA. They will be here around 2200 and 2300 to insert PICC.
--- NOTE | 2017-08-27 20:23 | NURSING ---
Rhianna from taxicab dispatcher called and stated that she had an emergency in [place] and wouldn't be here until after 2300. Wondered if the pt currently had access and if it would be ok for her to come tomorrow. Checked with Angelina PEDROZA who is caring for pt and she stated he had current access with an IJ. Advised Rhianna that tomorrow morning would probably be ok. She advised that someone would be here around 0900 and 1000 on 08/28/17.
[2017-08-27 20:47] VITALS: BP 143/75; PULSE 109; RESP 15; TEMP 37.3; O2SAT 97
[2017-08-27 20:57] VITALS: BP 143/75; PULSE 109
[2017-08-27] MEDS: Pravastatin 40 MG Tablet PO (20:57)
--- NOTE | 2017-08-27 21:30 | RAD_ITS ---
STUDY: X-RAY - LEFT ANKLE REASON FOR EXAM: Male, 71 years old. Left ankle wound to the bottom of the foot. TECHNIQUE: 3 view(s) of the ankle. COMPARISON: None. FINDINGS: Diffuse demineralization of the distal tibia and fibula. Old ossicle versus injury of the medial malleolus is present. Normal tibiotalar articulation and ankle mortise. Diffuse demineralization of the talus and calcaneus. Chronic degenerative subtalar, talonavicular, calcaneocuboid and tarsal articulations are normal. The soft tissue structures are unremarkable. RAD/Ankle min 3 Views IMPRESSION: Diffuse dilatation mineralization and noted degenerative changes above. No evidence of focal erosion to suggest definitive osteomyelitis within the region of the heel. If high clinical suspicion of infection recommend MRI imaging. Electronically Signed: Saw Verdugo DO at 22:00 EDT , Service support ,
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
[2017-08-27 22:31] LABS: Bedside Glucose 288 mg/dL (70-110)
[2017-08-28] VITALS (8 sets, daily range): BP systolic 129–154; BP diastolic 65–71; PULSE 80–104; RESP 15–18; TEMP 36.7–37.4; O2SAT 97–99
[2017-08-28] MEDS: Levothyroxine 25 MCG TABLET PO (06:30)
[2017-08-28] MEDS: Sucralfate 1 GM Tablet PO ×4 (06:30→21:38)
[2017-08-28] MEDS: 0.9% NaCl Peripheral Flush Adult/Peds IV ×3 (06:33→17:57)
[2017-08-28 06:46] LABS: Erythrocyte Sedimentation Rate 16 mm/hr (0-20)
[2017-08-28 07:01] LABS: Bedside Glucose 191 mg/dL (70-110)
--- NOTE | 2017-08-28 07:04 | PCM.PROGNOTE ---
Patient Problems: Active and Suspected Problems Abdominal pain (Acute) History of right above knee amputation (Acute) Acute kidney injury (Acute) Osteomyelitis of left ankle (Acute) Malnutrition (Acute) Vascular disease, peripheral (Suspected) Complicated UTI (urinary tract infection) (Acute) Constipation (Acute) Subjective: The patient was seen and examined at the bedside this morning. Events from the last 24 hours have been reviewed. The patient is currently afebrile, hemodynamically stable and maintaining appropriate oxygen saturations on room air. The patient was evaluated by both infectious diseases and podiatry yesterday. There are plans for debridement in the OR followed by PICC line placement and antibiotics. The patient does report that he feels as if his diarrhea has gotten worse. Objective: The patient's most recent lab work, culture data and imaging studies have all been personally reviewed. Wound culture dated August 21 was polymicrobial in nature with E. coli, Klebsiella, and Providencia identified. Blood and urine cultures have shown no growth to date. C. difficile was negative. Stool for occult blood was positive. Surface echocardiogram revealed normal LV size and function with an ejection fraction of 65% and evidence of stage I diastolic dysfunction. Enteric pathogen panel was negative. Stool was positive for fecal leukocytes. Ova and parasites is pending. - Physical Exam General: Alert, Cooperative, No apparent distress HEENT: Atraumatic, PERRLA, Normocephalic Oral: Moist Mucosa, No Gingival or Mucosal Lesions/ Ulcerations Neck: Supple, No Nodes, Trachea Midline, - - Right IJ central venous catheter in place Lungs: No rhonchi, No wheeze, No rales, Diminished Cardiovascular: Regular rate, Regular Rhythm, Normal S1, Normal S2, No murmurs, No rub noted, No Gallop Abdomen: Bowel Sounds Present, Soft, Non Tender Extremities: No clubbing, No cyanosis, No edema, Diminished Peripheral Pulses, - - Right AKA Skin: - - No significant change from previous. Musculoskeletal: No Muscle Wasting Lymphatic: No Cervical, Supraclavicular, or Inguinal Adenopathy Neurological: - - Baseline paraplegia without focal deficits Psych/Mental Status: Normal Affect, Appropriate Vital Signs Temp Pulse Resp BP Pulse Ox 98.1 F 104 H 15 129/65 H 98 08/28/17 02:50 08/28/17 02:50 08/28/17 02:50 08/28/17 02:50 08/28/17 02:50 Oxygen Delivery Method Room Air Weight: 223 lb 5.252 oz Body Mass Index (BMI) 22.6 Intake and Output for Last 24 Hours 08/26/17 08/27/17 08/28/17 23:59 23:59 23:59 Intake Total 4057 / 4057 2564 / 2564 323 / 323 Output Total 1525 / 1525 1500 / 1500 300 / 300 Balance 2532 / 2532 1064 / 1064 23 / 23 Microbiology Past 72 Hours 08/26/17 17:10 Enteric Bacteriology - Final Stool 08/21/17 18:54 Blood Culture - Final Blood Culture (Wb) - Left Hand No growth in 5 days. 08/21/17 18:54 Blood Culture - Final Blood Culture (Wb) - Anticubital Left No growth in 5 days. 08/26/17 17:10 Stool Lactoferrin - Final Stool 08/25/17 15:30 C. difficile DNA Amplification - Final Stool 08/25/17 15:30 Stool Occult Blood (DWAYNE) - Final Stool Occult Blood Positive 08/21/17 23:00 Gram Stain - Final Wound - Buttock Wound Culture - Final Escherichia coli Klebsiella pneumoniae sp pneum Providencia alcalifaciens Lactobacillus hilgardii Laboratory Tests Past 24 Hrs 08/28/17 08/28/17 05:43 05:43 ESR 16 C-React Prot Ext Range 24.60 H POC Glucose 08/28/17 08/27/17 08/27/17 06:37 21:59 18:32 POC Glucose 191 H 288 H 210 H 08/27/17 08/27/17 13:02 08:01 POC Glucose 170 H 137 H Clinical Impression(s) from Imaging Studies Abdomen/Pelvis CT 08/21/17 11:22 IMPRESSION: Large amount of stool throughout the descending and sigmoid colon as well as the rectum. Stable left-sided hydronephrosis associated with stable renal atrophy. Atherosclerosis. Cholelithiasis. Electronically Signed: Mimi Romero MD at 12:16 EDT Tel , Service support , Chest X-Ray 08/21/17 20:45 IMPRESSION: No acute finding Electronically Signed: Barber Gupta DO at 21:01 EDT Tel , Service support , Renal Ultrasound 08/23/17 10:02 IMPRESSION: There is atrophy of the left kidney with hydronephrosis, as demonstrated on the recent CT. The right kidney is normal in size and echogenicity without hydronephrosis. Electronically Signed: Bell Kapoor MD at 20:08 EDT Tel Direct: [phone], Service support , KUB X-Ray 08/25/17 10:20 IMPRESSION: Distended colon. This is suggestive of ileus of the colon. Follow-up is recommended. Electronically Signed: Hayder Cisneros MD at 13:29 EDT Tel [phone], Service support , Lower Extremity MRI 08/26/17 11:33 IMPRESSION: Marrow edema with contiguous spread osteomyelitis of the lateral malleolus. Electronically Signed: Roldan Mattson MD at 20:57 EDT , Service support , Ankle X-Ray 08/27/17 21:30 IMPRESSION: Diffuse dilatation mineralization and noted degenerative changes above. No evidence of focal erosion to suggest definitive osteomyelitis within the region of the heel. If high clinical suspicion of infection recommend MRI imaging. Electronically Signed: Saw Verdugo DO at 22:00 EDT , Service support , Medical Necessity - Tobacco Use Smoking Status: Never smoker Assessment/Plan All Active Problems Abdominal pain (Acute) History of right above knee amputation (Acute) Acute kidney injury (Acute) Osteomyelitis of left ankle (Acute) Malnutrition (Acute) Septic shock (Acute) Pressure ulcer of sacral region, stage 3 (Acute) Scrotal ulcer (Acute) 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 (Acute) Complicated UTI (urinary tract infection) (Acute) Constipation (Acute) Pressure ulcer of perianal region (Resolved) Pressure ulcer of buttock (Resolved) UTI (urinary tract infection) (Acute) RECOMMENDATIONS: 1. Continue antibiotics, per ID recommendations. 2. Place PICC line and remove central venous catheter. 3. Continue local wound care. 4. Upcoming planned surgical debridement by podiatry. 5. Outpatient gastroenterology follow-up 6. Continue Lovenox and Protonix for prophylaxis IMPRESSIONS: 1. Transient distributive shock of unclear etiology Patient's wound culture is growing a gram-negative selwyn. However, the patient's wounds do not appear to be acutely infected. The remainder of the patient's infectious workup has been negative to date. Nevertheless, he continues on antibiotics in coverage for the pathogens isolated from his wound culture. MRI of the patient's left ankle did reveal evidence of osteomyelitis, for which there are tentative plans for surgical debridement by podiatry, which will then be followed by PICC line placement and prolonged antibiotics, managed by infectious diseases. 2. Osteomyelitis of left lateral malleolus Tentative plans for surgical debridement tomorrow by podiatry. 3. Chronic diarrhea Etiology is unclear. The patient underwent colonoscopy in June which was not successful despite a 2-day bowel prep. If the patient's chronic sacral wounds continue to become infected from diarrhea may need to consider diverting/permanent colostomy. However, at this time, the patient is wishing to obtain a second opinion from a GI provider following recovery from his acute illness. Surgery continues to follow accordingly. This will likely require outpatient gastroenterology follow-up. 4. Acute kidney injury/hypokalemia/hypocalcemia Improving. Likely secondary to transient hemodynamic instability and subsequent ischemic ATN. The patient's hemodynamics have been stabilized at this time. Nephrology is following. Continue to monitor urine output closely. No acute indication for renal replacement therapy. 5. Paroxysmal SVT Patient has been in sinus tachycardia most of the time. However, periodic episodes of SVT with rates in the 150s have been noted. Cardiology is following to assist with medical management. Maintain a potassium greater than 4 and magnesium greater than 2. 6. Diabetes mellitus type 2/hypothyroidism/T4 paraplegia/poor history Complicates care, management, recovery and prognosis. Continue Synthroid per home regimen. This note was generated with [employer] software. It may contain incorrect words, spelling, and punctuation that were not noted in checking the note before signing. DISPOSITION: Given the lack of ongoing ICU/pulmonary needs, will sign off. Please call with any additional questions. Code Visit Inpatient E&M: 04199 Subs Hosp L2
--- NOTE | 2017-08-28 07:11 | PN_ITS ---
Patient Problems: Active and Suspected Problems Abdominal pain (Acute) History of right above knee amputation (Acute) Acute kidney injury (Acute) Osteomyelitis of left ankle (Acute) Malnutrition (Acute) Vascular disease, peripheral (Suspected) Complicated UTI (urinary tract infection) (Acute) Constipation (Acute) Subjective: The patient was seen and examined at the bedside this morning. Events from the last 24 hours have been reviewed. The patient is currently afebrile, hemodynamically stable and maintaining appropriate oxygen saturations on room air. The patient was evaluated by both infectious diseases and podiatry yesterday. There are plans for debridement in the OR followed by PICC line placement and antibiotics. The patient does report that he feels as if his diarrhea has gotten worse. Objective: The patient's most recent lab work, culture data and imaging studies have all been personally reviewed. Wound culture dated August 21 was polymicrobial in nature with E. coli, Klebsiella, and Providencia identified. Blood and urine cultures have shown no growth to date. C. difficile was negative. Stool for occult blood was positive. Surface echocardiogram revealed normal LV size and function with an ejection fraction of 65% and evidence of stage I diastolic dysfunction. Enteric pathogen panel was negative. Stool was positive for fecal leukocytes. Ova and parasites is pending. - Physical Exam General: Alert, Cooperative, No apparent distress HEENT: Atraumatic, PERRLA, Normocephalic Oral: Moist Mucosa, No Gingival or Mucosal Lesions/ Ulcerations Neck: Supple, No Nodes, Trachea Midline, - - Right IJ central venous catheter in place Lungs: No rhonchi, No wheeze, No rales, Diminished Cardiovascular: Regular rate, Regular Rhythm, Normal S1, Normal S2, No murmurs, No rub noted, No Gallop Abdomen: Bowel Sounds Present, Soft, Non Tender Extremities: No clubbing, No cyanosis, No edema, Diminished Peripheral Pulses, - - Right AKA Skin: - - No significant change from previous. Musculoskeletal: No Muscle Wasting Lymphatic: No Cervical, Supraclavicular, or Inguinal Adenopathy Neurological: - - Baseline paraplegia without focal deficits Psych/Mental Status: Normal Affect, Appropriate Vital Signs Temp Pulse Resp BP Pulse Ox 98.1 F 104 H 15 129/65 H 98 08/28/17 02:50 08/28/17 02:50 08/28/17 02:50 08/28/17 02:50 08/28/17 02:50 Oxygen Delivery Method Room Air Weight: 223 lb 5.252 oz Body Mass Index (BMI) 22.6 Intake and Output for Last 24 Hours 08/26/17 08/27/17 08/28/17 23:59 23:59 23:59 Intake Total 4057 / 4057 2564 / 2564 323 / 323 Output Total 1525 / 1525 1500 / 1500 300 / 300 Balance 2532 / 2532 1064 / 1064 23 / 23 Microbiology Past 72 Hours 08/26/17 17:10 Enteric Bacteriology - Final Stool 08/21/17 18:54 Blood Culture - Final Blood Culture (Wb) - Left Hand No growth in 5 days. 08/21/17 18:54 Blood Culture - Final Blood Culture (Wb) - Anticubital Left No growth in 5 days. 08/26/17 17:10 Stool Lactoferrin - Final Stool 08/25/17 15:30 C. difficile DNA Amplification - Final Stool 08/25/17 15:30 Stool Occult Blood (DWAYNE) - Final Stool Occult Blood Positive 08/21/17 23:00 Gram Stain - Final Wound - Buttock Wound Culture - Final Escherichia coli Klebsiella pneumoniae sp pneum Providencia alcalifaciens Lactobacillus hilgardii Laboratory Tests Past 24 Hrs 08/28/17 08/28/17 05:43 05:43 ESR 16 C-React Prot Ext Range 24.60 H POC Glucose 08/28/17 08/27/17 08/27/17 06:37 21:59 18:32 POC Glucose 191 H 288 H 210 H 08/27/17 08/27/17 13:02 08:01 POC Glucose 170 H 137 H Clinical Impression(s) from Imaging Studies Abdomen/Pelvis CT 08/21/17 11:22 IMPRESSION: Large amount of stool throughout the descending and sigmoid colon as well as the rectum. Stable left-sided hydronephrosis associated with stable renal atrophy. Atherosclerosis. Cholelithiasis. Electronically Signed: Mimi Romero MD at 12:16 EDT Tel , Service support , Chest X-Ray 08/21/17 20:45 IMPRESSION: No acute finding Electronically Signed: Barber Gupta DO at 21:01 EDT Tel , Service support , Renal Ultrasound 08/23/17 10:02 IMPRESSION: There is atrophy of the left kidney with hydronephrosis, as demonstrated on the recent CT. The right kidney is normal in size and echogenicity without hydronephrosis. Electronically Signed: Bell Kapoor MD at 20:08 EDT Tel Direct: [phone], Service support , KUB X-Ray 08/25/17 10:20 IMPRESSION: Distended colon. This is suggestive of ileus of the colon. Follow-up is recommended. Electronically Signed: Hayder Cisneros MD at 13:29 EDT Tel [phone], Service support , Lower Extremity MRI 08/26/17 11:33 IMPRESSION: Marrow edema with contiguous spread osteomyelitis of the lateral malleolus. Electronically Signed: Roldan Mattson MD at 20:57 EDT , Service support , Ankle X-Ray 08/27/17 21:30 IMPRESSION: Diffuse dilatation mineralization and noted degenerative changes above. No evidence of focal erosion to suggest definitive osteomyelitis within the region of the heel. If high clinical suspicion of infection recommend MRI imaging. Electronically Signed: Saw Verdugo DO at 22:00 EDT , Service support , Medical Necessity - Tobacco Use Smoking Status: Never smoker Assessment/Plan All Active Problems Abdominal pain (Acute) History of right above knee amputation (Acute) Acute kidney injury (Acute) Osteomyelitis of left ankle (Acute) Malnutrition (Acute) Septic shock (Acute) Pressure ulcer of sacral region, stage 3 (Acute) Scrotal ulcer (Acute) 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 (Acute) Complicated UTI (urinary tract infection) (Acute) Constipation (Acute) Pressure ulcer of perianal region (Resolved) Pressure ulcer of buttock (Resolved) UTI (urinary tract infection) (Acute) RECOMMENDATIONS: 1. Continue antibiotics, per ID recommendations. 2. Place PICC line and remove central venous catheter. 3. Continue local wound care. 4. Upcoming planned surgical debridement by podiatry. 5. Outpatient gastroenterology follow-up 6. Continue Lovenox and Protonix for prophylaxis IMPRESSIONS: 1. Transient distributive shock of unclear etiology Patient's wound culture is growing a gram-negative selwyn. However, the patient's wounds do not appear to be acutely infected. The remainder of the patient's infectious workup has been negative to date. Nevertheless, he continues on antibiotics in coverage for the pathogens isolated from his wound culture. MRI of the patient's left ankle did reveal evidence of osteomyelitis, for which there are tentative plans for surgical debridement by podiatry, which will then be followed by PICC line placement and prolonged antibiotics, managed by infectious diseases. 2. Osteomyelitis of left lateral malleolus Tentative plans for surgical debridement tomorrow by podiatry. 3. Chronic diarrhea Etiology is unclear. The patient underwent colonoscopy in June which was not successful despite a 2-day bowel prep. If the patient's chronic sacral wounds continue to become infected from diarrhea may need to consider diverting/ permanent colostomy. However, at this time, the patient is wishing to obtain a second opinion from a GI provider following recovery from his acute illness. Surgery continues to follow accordingly. This will likely require outpatient gastroenterology follow-up. 4. Acute kidney injury/hypokalemia/hypocalcemia Improving. Likely secondary to transient hemodynamic instability and subsequent ischemic ATN. The patient's hemodynamics have been stabilized at this time. Nephrology is following. Continue to monitor urine output closely. No acute indication for renal replacement therapy. 5. Paroxysmal SVT Patient has been in sinus tachycardia most of the time. However, periodic episodes of SVT with rates in the 150s have been noted. Cardiology is following to assist with medical management. Maintain a potassium greater than 4 and magnesium greater than 2. 6. Diabetes mellitus type 2/hypothyroidism/T4 paraplegia/poor history Complicates care, management, recovery and prognosis. Continue Synthroid per home regimen. This note was generated with [employer] software. It may contain incorrect words, spelling, and punctuation that were not noted in checking the note before signing. DISPOSITION: Given the lack of ongoing ICU/pulmonary needs, will sign off. Please call with any additional questions. Code Visit Inpatient E&M: 00438 Subs Hosp L2
[2017-08-28 07:29] LABS: Anion Gap 7 (5-15); BUN 39 mg/dL (7-18); BUN/Creat Ratio 25.8 RATIO (10-20); Calcium,Total 6.8 mg/dL (8.5-10.1); Chloride 108 mmol/L (98-107); Creatinine, Serum 1.51 mg/dL (0.70-1.30); EST Glomerular Filtration Rate 48 mL/min (>60); Est Glom Filt Rate - Afr Amer 58 mL/min (>60); Estimated Creatinine Clearance 44.99 ml/min; Glucose 187 mg/dL (74-106); Potassium 3.7 mmol/L (3.5-5.1); Sodium Level 139 mmol/L (136-145)
[2017-08-28] MEDS: Calcium Carbonate 500 MG Tablet PO ×2 (08:53→17:57)
[2017-08-28] MEDS: Menthol/Lanolin/Calamine/Znox 113 GM Tube 1 APPLIC TOPICAL ×2 (09:30→21:38)
--- NOTE | 2017-08-28 10:56 | PCM.PN.REN ---
Patient Problems: Active and Suspected Problems Abdominal pain (Acute) History of right above knee amputation (Acute) Acute kidney injury (Acute) Osteomyelitis of left ankle (Acute) Malnutrition (Acute) Vascular disease, peripheral (Suspected) Complicated UTI (urinary tract infection) (Acute) Constipation (Acute) Subjective: Still complaining of diarrhea. No nausea No vomiting. No SOB - Physical Exam General: Alert, Oriented x3 HEENT: Atraumatic Oral: Moist Mucosa Neck: Supple, No JVD Lungs: Clear to auscultation, Normal air movement, No rhonchi, No wheeze Cardiovascular: Regular rate, Regular Rhythm, Normal S1, Normal S2 Abdomen: Bowel Sounds Present, Non Tender, Distended Extremities: No clubbing, No cyanosis, - - +1 edema of LLE Musculoskeletal: No Tenderness to Palpation of Joints or Extremities Psych/Mental Status: Normal Affect Vital Signs Temp Pulse Resp BP Pulse Ox 98.1 F 95 18 136/69 H 97 08/28/17 09:07 08/28/17 09:07 08/28/17 09:07 08/28/17 09:07 08/28/17 09:07 Oxygen Delivery Method Room Air Weight: 101.2 kg Body Mass Index (BMI) 22.6 Intake and Output for Last 24 Hours 08/26/17 08/27/17 08/28/17 23:59 23:59 23:59 Intake Total 4057 / 4057 2564 / 2564 323 / 323 Output Total 1525 / 1525 1500 / 1500 300 / 300 Balance 2532 / 2532 1064 / 1064 23 / 23 Microbiology Past 72 Hours 08/26/17 17:10 Enteric Bacteriology - Final Stool 08/21/17 18:54 Blood Culture - Final Blood Culture (Wb) - Left Hand No growth in 5 days. 08/21/17 18:54 Blood Culture - Final Blood Culture (Wb) - Anticubital Left No growth in 5 days. 08/26/17 17:10 Stool Lactoferrin - Final Stool 08/25/17 15:30 C. difficile DNA Amplification - Final Stool 08/25/17 15:30 Stool Occult Blood (DWAYNE) - Final Stool Occult Blood Positive 08/21/17 23:00 Gram Stain - Final Wound - Buttock Wound Culture - Final Escherichia coli Klebsiella pneumoniae sp pneum Providencia alcalifaciens Lactobacillus hilgardii Laboratory Tests Past 24 Hrs 08/28/17 08/28/17 08/28/17 05:43 05:43 05:43 ESR 16 Sodium 139 Potassium 3.7 Chloride 108 H Carbon Dioxide 24.0 Anion Gap 7 BUN 39 H Creatinine 1.51 H Estim Creat Clear Calc 44.99 Est GFR (MDRD) Af Amer 58 L Est GFR (MDRD) Non-Af 48 L BUN/Creatinine Ratio 25.8 H Glucose 187 H Calcium 6.8 L C-React Prot Ext Range 24.60 H S.aureus Protein A PCR MRSA (PCR) 08/28/17 09:05 ESR Sodium Potassium Chloride Carbon Dioxide Anion Gap BUN Creatinine Estim Creat Clear Calc Est GFR (MDRD) Af Amer Est GFR (MDRD) Non-Af BUN/Creatinine Ratio Glucose Calcium C-React Prot Ext Range S.aureus Protein A PCR Pending MRSA (PCR) Pending POC Glucose 08/28/17 08/27/17 08/27/17 06:37 21:59 18:32 POC Glucose 191 H 288 H 210 H 08/27/17 13:02 POC Glucose 170 H Medical Necessity - Tobacco Use Smoking Status: Never smoker Assessment/Plan All Active Problems Abdominal pain (Acute) History of right above knee amputation (Acute) Acute kidney injury (Acute) Osteomyelitis of left ankle (Acute) Malnutrition (Acute) Septic shock (Acute) Pressure ulcer of sacral region, stage 3 (Acute) Scrotal ulcer (Acute) 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 non oliguric URSZULA is most probably ATN induced by ischemia CT showed chronic left hydronephrosis with left atrophic kidney Cr is stable for the last 24 hours at 1.5 mg/dL. Patient is still has significant diarrhea. Patient has low albumin level at 1.4. I will give the patient 2 doses of IV albumin 25 I encouraged p.o. intake Keep MAP >65 Check BMP in am 2- high anion gap acidosis. resolved. 3- hypokalemia: Most probably related to GI Na loss . Received multiple replacement IV and PO. Continue PO K supplements check K in am 4- hypomagnesemia: Resolved with replacement.Check Mg in am 5- Septic shock due to infected DU . Better. Off BP pressors. On Abx as per primary/ICU service 6- Diarrhea . Rule is positive for white cell. C. difficile is negative. Management as per the primary physician might need diverting colostomy as per the primary service/ surgical team Will continue to follow D/W Dr. Dirk JACOBSON MD
[2017-08-28] MEDS: Ascorbic Acid 500 MG Tablet 1000 MG PO (11:00)
[2017-08-28] MEDS: Pantoprazole Sodium 40 MG Tablet PO (11:00)
[2017-08-28] MEDS: Metoprolol Tartrate 25 MG Tablet PO ×2 (11:00→21:38)
[2017-08-28] MEDS: Enoxaparin 40 MG/0.4 ML Syringe SC (11:01)
[2017-08-28 11:21] LABS: M R Staph aureus DNA By PCR POSITIVE (Negative); Probe Check PASS; Staph aureus DNA By PCR POSITIVE (Negative)
--- NOTE | 2017-08-28 11:33 | PCM.PROGNOTE ---
Patient Problems: Active and Suspected Problems Abdominal pain (Acute) History of right above knee amputation (Acute) Acute kidney injury (Acute) Osteomyelitis of left ankle (Acute) Malnutrition (Acute) Vascular disease, peripheral (Suspected) Complicated UTI (urinary tract infection) (Acute) Constipation (Acute) Subjective: This 71 year old male was seen bedside. He denies pain, fever, chills, nausea, vomiting. He had his vascular studies and other tests completed. He also asked for help trimming his elongated toenails today because he does not feel safe performing this on his own. - Physical Exam General: Alert, Oriented x3, Cooperative Extremities: No cyanosis, No Calf Tenderness, Diminished Peripheral Pulses, - Skin: Ulcer/ Wound - Fibrous wound with partially adhered distal eschar. There is no purulence odor erythema or fluctuance on palpation. Deeper tissue just overlying the bone is noted and there is no positive probe to bone however it is in anatomic close approximation., - - The skin is atrophic. The nails are elongated with mild thickening and dystrophy bilateral lower extremities Musculoskeletal: No Tenderness to Palpation of Joints or Extremities, Muscle Wasting, - - No pain with wound manipulation. Paraplegia noted Neurological: - - Lack of epicritic sensation light touch left lower extremity Psych/Mental Status: Normal Affect, Appropriate Vital Signs Temp Pulse Resp BP Pulse Ox 98.1 F 80 18 136/69 H 97 08/28/17 09:07 08/28/17 11:00 08/28/17 09:07 08/28/17 09:07 08/28/17 09:07 Oxygen Delivery Method Room Air Weight: 101.2 kg Body Mass Index (BMI) 22.6 Intake and Output for Last 24 Hours 08/26/17 08/27/17 08/28/17 23:59 23:59 23:59 Intake Total 4057 / 4057 2564 / 2564 323 / 323 Output Total 1525 / 1525 1500 / 1500 300 / 300 Balance 2532 / 2532 1064 / 1064 Microbiology Past 72 Hours 08/26/17 17:10 Enteric Bacteriology - Final Stool 08/21/17 18:54 Blood Culture - Final Blood Culture (Wb) - Left Hand No growth in 5 days. 08/21/17 18:54 Blood Culture - Final Blood Culture (Wb) - Anticubital Left No growth in 5 days. 08/26/17 17:10 Stool Lactoferrin - Final Stool 08/25/17 15:30 C. difficile DNA Amplification - Final Stool 08/25/17 15:30 Stool Occult Blood (DWAYNE) - Final Stool Occult Blood Positive 08/21/17 23:00 Gram Stain - Final Wound - Buttock Wound Culture - Final Escherichia coli Klebsiella pneumoniae sp pneum Providencia alcalifaciens Lactobacillus hilgardii Laboratory Tests Past 24 Hrs 08/28/17 08/28/17 08/28/17 05:43 05:43 05:43 ESR 16 Sodium 139 Potassium 3.7 Chloride 108 H Carbon Dioxide 24.0 Anion Gap 7 BUN 39 H Creatinine 1.51 H Estim Creat Clear Calc 44.99 Est GFR (MDRD) Af Amer 58 L Est GFR (MDRD) Non-Af 48 L BUN/Creatinine Ratio 25.8 H Glucose 187 H Calcium 6.8 L C-React Prot Ext Range 24.60 H S.aureus Protein A PCR MRSA (PCR) 08/28/17 09:05 ESR Sodium Potassium Chloride Carbon Dioxide Anion Gap BUN Creatinine Estim Creat Clear Calc Est GFR (MDRD) Af Amer Est GFR (MDRD) Non-Af BUN/Creatinine Ratio Glucose Calcium C-React Prot Ext Range S.aureus Protein A PCR POSITIVE H MRSA (PCR) POSITIVE H POC Glucose 08/28/17 08/27/17 08/27/17 06:37 21:59 18:32 POC Glucose 191 H 288 H 210 H 08/27/17 13:02 POC Glucose 170 H Medical Necessity - Tobacco Use Smoking Status: Never smoker Assessment/Plan All Active Problems Abdominal pain (Acute) History of right above knee amputation (Acute) Acute kidney injury (Acute) Osteomyelitis of left ankle (Acute) Malnutrition (Acute) Septic shock (Acute) Pressure ulcer of sacral region, stage 3 (Acute) Scrotal ulcer (Acute) 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 (Acute) Complicated UTI (urinary tract infection) (Acute) Constipation (Acute) Pressure ulcer of perianal region (Resolved) Pressure ulcer of buttock (Resolved) UTI (urinary tract infection) (Acute) Left lateral ankle chronic ulcer concern for osteomyelitis of the distal fibula and rule out as potential source of recent sepsis; positive MRSA Diabetes with neuropathy Lower extremity edema Malnutrition Paralysis Peripheral vascular disease Recent acute kidney injury Other comorbidities I reviewed and discussed the case with the patient. I reviewed all of his diagnostic data. He demonstrated white blood cell count of 5.9, ESR 16 and C-reactive protein 24.6. He had negative blood cultures. His C. difficile exam was negative. His left ankle cultures including MRSA screening were positive and the Gram stain and final culture result is still pending. Left ankle x-rays were reviewed without clear osseous destruction, soft tissue emphysema, foreign body, or acute injury. A recent MRI of the ankle demonstrates some increased hyperintensity in T2 to the distal lateral fibula with some trabecular edema. There is some questionable hypointensity on T1 and this corresponds at this location as well and osteomyelitis cannot be ruled out at this time. He continues on IV antibiotics and infectious disease on consultation. Vanco was added due to positive MRSA PCR. A bone biopsy will be obtained of the distal fibula to guide further treatment; this will be done in a minimally invasive manner. His noninvasive vascular studies also demonstrate monophasic waveforms the left ankle with 0.4 KATHERIN. I recommend vascular surgery consultation. His foot is still warm to touch each however his pulses are nonpalpable and it is noted he has delayed wound healing of approximately 2 months to the ankle level. Vascular surgery will be consulted when available this upcoming week in the outpatient setting. I also recommend strict offloading his pillows will be adjusted to float his ulcer site in the air. I recommend a donut pillow. To continue proper glycemic control nutritional supplementation (Alan ) to optimize healing. I recommend daily dressing changes with Santyl. The distal wound necrotic eschar was excised via sharp excisional debridement with a 15 blade today to remove devitalized subcutaneous, fibers, biofilm, slough tissue. Scant hematogenous drainage was noted and pressure was applied. The wound was redressed. We will plan on obtaining the bone biopsy tomorrow in the operating room with debridement of non viable tissue. Application will be considered in the future once his local MRSA bacterial infection is treated. The preoperative indications, planned procedure, benefits, risks, anticipated healing time is were discussed in detail the patient. He understands and elects to proceed with surgery. The surgery is scheduled for tomorrow afternoon. Surgical consent will be signed. It is okay for him to continue anticoagulation medication during the perioperative procedure. N.p.o. order will be placed. All of the patient's questions were answered. This plan was discussed with the medical team who is encouraging bone biopsy due to inability to find definitive infectious source of his recent sepsis episode. He understands he is at risk for limb loss and continued illness. Medical management, preoperative optimization, and DVT prophylaxis per primary team is appreciated. His toenails will be trimmed in house once appropriate instruments are available and he has stabilized. I will continue to follow him closely while in house. Lety Berry DPM, [facility] [phone]
[2017-08-28 12:15] LABS: Bedside Glucose 171 mg/dL (70-110)
[2017-08-28] MEDS: Loperamide 2 MG Capsule PO (12:39)
--- NOTE | 2017-08-28 16:32 | PCM.PN.ID ---
Patient Problems: Active and Suspected Problems Abdominal pain (Acute) History of right above knee amputation (Acute) Acute kidney injury (Acute) Osteomyelitis of left ankle (Acute) Malnutrition (Acute) Vascular disease, peripheral (Suspected) Complicated UTI (urinary tract infection) (Acute) Constipation (Acute) Subjective: Feeling worse, more chills. No abd pain. - Physical Exam General: Cooperative, No apparent distress Lungs: Clear to auscultation, Normal air movement Cardiovascular: Regular rate, Regular Rhythm Abdomen: Soft, Non Tender, Non-Distended Skin: Ulcer/ Wound - L ankle wrapped Vital Signs Temp Pulse Resp BP Pulse Ox 98.2 F 86 18 140/67 H 99 08/28/17 15:37 08/28/17 15:37 08/28/17 15:37 08/28/17 15:37 08/28/17 15:37 Oxygen Delivery Method Room Air Weight: 101.2 kg Body Mass Index (BMI) 22.6 Intake and Output for Last 24 Hours 08/26/17 08/27/17 08/28/17 23:59 23:59 23:59 Intake Total 4057 / 4057 2564 / 2564 723 / 723 Output Total 1525 / 1525 1500 / 1500 500 / 500 Balance 2532 / 2532 1064 / 1064 223 / 223 Microbiology Past 72 Hours 08/28/17 09:05 Gram Stain - Final Wound - Aerobic & Anaerobic Swabs 08/26/17 17:10 Enteric Bacteriology - Final Stool 08/21/17 18:54 Blood Culture - Final Blood Culture (Wb) - Left Hand No growth in 5 days. 08/21/17 18:54 Blood Culture - Final Blood Culture (Wb) - Anticubital Left No growth in 5 days. 08/26/17 17:10 Stool Lactoferrin - Final Stool 08/25/17 15:30 C. difficile DNA Amplification - Final Stool 08/25/17 15:30 Stool Occult Blood (DWAYNE) - Final Stool Occult Blood Positive Laboratory Tests Past 24 Hrs 08/28/17 08/28/17 08/28/17 05:43 05:43 05:43 ESR 16 Sodium 139 Potassium 3.7 Chloride 108 H Carbon Dioxide 24.0 Anion Gap 7 BUN 39 H Creatinine 1.51 H Estim Creat Clear Calc 44.99 Est GFR (MDRD) Af Amer 58 L Est GFR (MDRD) Non-Af 48 L BUN/Creatinine Ratio 25.8 H Glucose 187 H Calcium 6.8 L C-React Prot Ext Range 24.60 H S.aureus Protein A PCR MRSA (PCR) 08/28/17 09:05 ESR Sodium Potassium Chloride Carbon Dioxide Anion Gap BUN Creatinine Estim Creat Clear Calc Est GFR (MDRD) Af Amer Est GFR (MDRD) Non-Af BUN/Creatinine Ratio Glucose Calcium C-React Prot Ext Range S.aureus Protein A PCR POSITIVE H MRSA (PCR) POSITIVE H POC Glucose 08/28/17 08/28/17 08/27/17 12:12 06:37 21:59 POC Glucose 171 H 191 H 288 H 08/27/17 18:32 POC Glucose 210 H Medical Necessity - Tobacco Use Smoking Status: Never smoker Route of nutrition/ use of supplements: [] Nutritional Intake: [] IV Site: [] Lozano Catheter: [] - Assessment/Plan Antibiotics: [] Assessment/Plan: [] Active and Suspected Problems Abdominal pain (Acute) History of right above knee amputation (Acute) Acute kidney injury (Acute) Complicated UTI (urinary tract infection) (Acute) Constipation (Acute) septic shock with L ankle osteo - no osteo of pelvis seen on CT on admission. Sacral cx with ecoli, kpneumo, lactobacillus, and providencia. Overall much improved, now on unasyn. Dr. Berry following, bone bx planned. Ankle mrsa pcr (+). Pt c/o more chills and feeling worse, this may correspond with him being off vanc for a few days now. Will restart. chronic diarrhea - enteric pathogen panel neg, cdiff neg. Will follow, d/w Dr. Cavazos.
[2017-08-28 16:40] LABS: Bedside Glucose 241 mg/dL (70-110)
[2017-08-28] MEDS: Vancomycin IV 500 MG/100 ML BAG 100 MG IV (18:56)
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
[2017-08-28] MEDS: Pravastatin 40 MG Tablet PO (21:38)
[2017-08-28] MEDS: metroNIDAZOLE 500 MG Tablet PO (21:38)
[2017-08-29] VITALS (13 sets, daily range): BP systolic 128–151; BP diastolic 62–69; PULSE 72–92; RESP 16–18; TEMP 36.4–37.3; O2SAT 96–100; BMI 32.1
[2017-08-29] MEDS: Levothyroxine 25 MCG TABLET PO (06:05)
[2017-08-29] MEDS: Sucralfate 1 GM Tablet PO ×3 (06:05→20:56)
[2017-08-29] MEDS: metroNIDAZOLE 500 MG Tablet PO ×3 (06:05→20:55)
[2017-08-29 06:15] LABS: Hematocrit 28.5 % (40-54); Mean Corp Hgb Conc 31.6 g/gl (32-36); Mean Corpuscular Hgb 26.9 pg (27.0-32.0); Mean Corpuscular Volume 85.1 fL (80-94); Mean Platelet Vol. 9.3 fl (6.2-12.0); Platelet Count 200 K/mm3 (150-450); RBC Distribution Width CV 15.4 % (11.6-14.6); RBC Distribution Width SD 48.1 fl (35.1-43.9); Red Blood Count 3.35 M/mm3 (4.6-6.2); White Blood Count 5.6 K/mm3 (4.4-11.0)
[2017-08-29 06:17] LABS: Hemoglobin A1c 8.5 % (4.2-6.3)
[2017-08-29 06:19] LABS: Thyroid Stim Hormone (TSH) 3.38 uIU/mL (0.358-3.74)
[2017-08-29 06:20] LABS: Scan Indicated on CBC? Y/N NO
--- NOTE | 2017-08-29 06:39 | PCM.RX.CS ---
Consult Pharmacy has been consulted to manage selected antiobiotic: Vancomycin Type of Consult: Follow-up Suspected Infection: Skin/Soft tissue Labs: Sodium 139 mmol/L (136-145) 08/28/17 05:43 Potassium 3.7 mmol/L (3.5-5.1) 08/28/17 05:43 Chloride 108 mmol/L (98-107) H 08/28/17 05:43 Carbon Dioxide 24.0 mmol/L (21.0-32.0) 08/28/17 05:43 Anion Gap 7 (5-15) 08/28/17 05:43 BUN 39 mg/dL (7-18) H 08/28/17 05:43 Creatinine 1.51 mg/dL (0.70-1.30) H 08/28/17 05:43 Est GFR (MDRD) Af Amer 58 mL/min (>60) L 08/28/17 05:43 Est GFR (MDRD) Non-Af 48 mL/min (>60) L 08/28/17 05:43 BUN/Creatinine Ratio 25.8 RATIO (10-20) H 08/28/17 05:43 Glucose 187 mg/dL (74-106) H 08/28/17 05:43 Vancomycin Trough 22.0 ug/mL (5.0-15.0) H 08/23/17 09:30 Random Vancomycin 17.8 ug/mL (0.0-15.0) H 08/24/17 10:50 Microbiology: Microbiology 08/28/17 09:05 Wound - Aerobic & Anaerobic Swabs Gram Stain - Final 08/26/17 17:10 Stool Enteric Bacteriology - Final 08/21/17 18:54 Blood Culture (Wb) - Left Hand Blood Culture - Final No growth in 5 days. 08/21/17 18:54 Blood Culture (Wb) - Anticubital Left Blood Culture - Final No growth in 5 days. 08/26/17 17:10 Stool Stool Lactoferrin - Final 08/25/17 15:30 Stool C. difficile DNA Amplification - Final 08/25/17 15:30 Stool Stool Occult Blood (DWAYNE) - Final Occult Blood Positive 08/21/17 23:00 Wound - Buttock Gram Stain - Final 08/21/17 23:00 Wound - Buttock Wound Culture - Final Escherichia coli Klebsiella pneumoniae sp pneum Providencia alcalifaciens Lactobacillus hilgardii 08/21/17 19:30 Urine, Catheterized Urine Culture - Final Culture exhibits no growth. 08/21/17 19:30 Stool C. difficile DNA Amplification - Final Weight used for dosin kg Estimated Creatinine Clearance: 45 mL/min Goal Trough: 15-20 mcg/mL Pharmacy Plan for Drug Dosing: Vancomycin re-started last night, 500mg IV q24h. Check trough prior to dose on 08/30/17. Pharmacy Service will continue to monitor and adjust dosing as required. Follow-Up Labs: Trough Vancomycin - 08/30/17 @ 1730
[2017-08-29 07:00] LABS: Bedside Glucose 266 mg/dL (70-110)
[2017-08-29 08:16] LABS: Vitamin D 1,25-Dihydroxy 48.8 pg/mL (19.9-79.3)
[2017-08-29] MEDS: Pantoprazole Sodium 40 MG Tablet PO (09:21)
[2017-08-29] MEDS: Glimepiride 1 MG Tablet PO (09:21)
[2017-08-29] MEDS: Metoprolol Tartrate 25 MG Tablet PO ×2 (09:23→20:55)
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
[2017-08-29] MEDS: CHLORHEXIDINE GLUC 2% CLOTH 1 EACH TOWELETTE TOPICAL (10:55)
--- NOTE | 2017-08-29 12:26 | PCM.PN.REN ---
Patient Problems: Active and Suspected Problems Abdominal pain (Acute) History of right above knee amputation (Acute) Acute kidney injury (Acute) Osteomyelitis of left ankle (Acute) Malnutrition (Acute) Vascular disease, peripheral (Suspected) Complicated UTI (urinary tract infection) (Acute) Constipation (Acute) Subjective: Following for URSZULA. Pt denies CP, SOB at rest, Feels more thirsty. Still has loose BM. - Physical Exam General: Alert, Oriented x3 HEENT: Atraumatic Oral: Dry Mucosa Neck: Supple Lungs: Clear to auscultation - anteriorly Cardiovascular: Normal S1, Normal S2 Abdomen: Bowel Sounds Present, Soft, Non Tender Extremities: No clubbing, No cyanosis, Edema - trace Vital Signs Temp Pulse Resp BP Pulse Ox 98.1 F 72 18 146/69 H 98 08/29/17 09:29 08/29/17 09:30 08/29/17 09:29 08/29/17 09:29 08/29/17 09:29 Oxygen Delivery Method Room Air Weight: 101.5 kg Body Mass Index (BMI) 32.1 Intake and Output for Last 24 Hours 08/27/17 08/28/17 08/29/17 23:59 23:59 23:59 Intake Total 2564 / 2564 1534 / 1534 1340 / 1340 Output Total 1500 / 1500 1225 / 1225 1100 / 1100 Balance 1064 / 1064 309 / 309 240 / 240 Microbiology Past 72 Hours 08/28/17 09:05 Gram Stain - Final Wound - Aerobic & Anaerobic Swabs Wound Culture - Preliminary Gram positive organism Gram positive organism#2 08/26/17 17:10 Enteric Bacteriology - Final Stool 08/21/17 18:54 Blood Culture - Final Blood Culture (Wb) - Left Hand No growth in 5 days. 08/21/17 18:54 Blood Culture - Final Blood Culture (Wb) - Anticubital Left No growth in 5 days. 08/26/17 17:10 Stool Lactoferrin - Final Stool Laboratory Tests Past 24 Hrs 08/25/17 08/29/17 08/29/17 08:05 05:38 05:38 WBC 5.6 RBC 3.35 L Hgb 9.0 L Hct 28.5 L MCV 85.1 MCH 26.9 L MCHC 31.6 L RDW 15.4 H RDW Differential 48.1 H Plt Count 200 MPV 9.3 Hemoglobin A1c Vit D 1,25-Dihydroxy 48.8 TSH 3.38 08/29/17 05:38 WBC RBC Hgb Hct MCV MCH MCHC RDW RDW Differential Plt Count MPV Hemoglobin A1c 8.5 H Vit D 1,25-Dihydroxy TSH POC Glucose 08/29/17 08/28/17 06:54 16:18 POC Glucose 266 H 241 H Medical Necessity - Tobacco Use Smoking Status: Never smoker Assessment/Plan All Active Problems Abdominal pain (Acute) History of right above knee amputation (Acute) Acute kidney injury (Acute) Osteomyelitis of left ankle (Acute) Malnutrition (Acute) Septic shock (Acute) Pressure ulcer of sacral region, stage 3 (Acute) Scrotal ulcer (Acute) 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 non oliguric URSZULA is most probably ATN induced by ischemia CT showed chronic left hydronephrosis with left atrophic kidney Cr is stable for the last 24 hours at 1.5 mg/dL (on 08/28). Cr pending today. Patient is still has significant diarrhea. Patient has low albumin level at 1.4. Was given 2 doses of IV albumin 25 g on 08/28 as well. Continue present treatment. Recheck Cr again in am. I encouraged p.o. intake Keep MAP >65 2- high anion gap acidosis. resolved. 3- hypokalemia: Most probably related to GI Na loss . Received multiple replacement IV and PO. Continue PO K supplements check K in am 4- hypomagnesemia: Resolved with replacement. Check Mg in am 5- Septic shock due to infected DU . Better. Off BP pressors. On Abx as per primary/ICU service 6- Diarrhea . Rule is positive for white cell. C. difficile is negative. Management as per the primary physician might need diverting colostomy as per the primary service/ surgical team Will continue to follow D/W Dr. Cavazos
[2017-08-29] MEDS: 0.9% NaCl Peripheral Flush Adult/Peds IV (12:36)
--- NOTE | 2017-08-29 14:00 | RAD_ITS ---
STUDY: X-RAY - LEFT ANKLE REASON FOR EXAM: Male, 71 years old. Left ankle bone biopsy TECHNIQUE: 1 view(s) of the ankle. COMPARISON: Prior study of 08/27/2017 FINDINGS: A device consistent with bone biopsy needle is seen, with the tip overlying the distal fibula. RAD/Ankle 2 Views IMPRESSION: Device consistent with bone biopsy noted, with tip overlying the distal fibular tip. A total of 5 seconds of fluoroscopy time was used. Electronically Signed: Joe Dunn MD at 16:57 EDT , Service support ,
[2017-08-29 14:11] LABS: Bedside Glucose 285 mg/dL (70-110)
--- NOTE | 2017-08-29 14:15 | BONBX_PTH ---
PATIENT: LUIS CEDILLO LOC: MS3 U#:[id number] AGE/SX: 71/M ROOM: [facility] RE08/21/[address]: Dr. Xavier Miller DO : 1945 BED: 1 DIS: 09/03/2017 SPEC #: [id number] RECD: 08/29/17 15:55 STATUS: ACE REQ #: [id number] CLIFFORD: 08/29/17 14:[address]: Lety Berry DEPT: SURGICAL PATHOLOGY RECD BY: Jose Daniel Lowery ENTERED: 09/01/17 11:50 SP TYPE: Bone OTHR DR: MD Dr. Nikolai Pete MD Dr. Arshad Rehan, MD Dr. Bruce Arthur, MD Dr. Joseph Agyepong, MD Dr. Jeanna Fascione, DPM DO Dr. Xavier Waters DO Dr. Robert Leininger, MD Tissues: Bone of lower extremity, NOS Procedures: Decalcification bone/plaque Surgery Specimen Level III Comments: @ Ordering doctor for DEC edited from to @ by KEANU at 09/01/17 1540 @ Ordering doctor for SUV edited from to @ by KEANU at 09/01/17 1540 @ Submitting doctor edited from to DR.JFASCI Kimberly COLUNGA at 09/01/17 1540 HEADER OPERATION: Bone biopsy, ankle PRE-OP DIAGNOSIS: Osteomyelitis, left foot TISSUE SUBMITTED: Bone left fibula MICROSCOPIC DIAGNOSIS Bone, left fibula, biopsy: Pieces of bone, negative for acute osteomyelitis. [place] 09/03/17 MICROSCOPIC DESCRIPTION Slides are reviewed. GROSS DESCRIPTION Received in fixative is one container labeled with the patient's name and designated left fibula bone biopsy. The specimen consists of multiple fragments of duncan bone that in aggregate measure 1 x 0.2 x 0.1 cm. The entire specimen is submitted in one cassette after short decalcification. / KENNY:eda 09/01/17 TC:5 CPT: 18438, 36860
--- NOTE | 2017-08-29 15:10 | PCM.IMDPSTOP ---
Problem List (1) Ulcer of left lower extremity with fat layer exposed Status: Chronic (2) Osteomyelitis of left ankle Status: Acute (3) Malnutrition Status: Acute (4) Paraplegia Status: Chronic (5) Vascular disease, peripheral Status: Suspected (6) Type 2 diabetes mellitus with diabetic polyneuropathy Status: Chronic Immediate Post-Op Note Date of Procedure: 08/21/17 - surgeon: Rita Berry DPM. assistant manager quality management: Alycia Walton PGY3 Primary Surgeon/Physician: Lety Berry DPM specimen accessioner: none Pre-Operative Diagnosis: rule out osteomyelitis distal fibula, left Post-Operative Diagnosis: rule out osteomyelitis distal fibula, left Surgery/Procedure Performed:: bone biopsy left distal fibula. debridement left ulcer Description of Surgical Findings:: hemostasis controlled see detailed operation report The patient tolerated the procedure and anesthesia well. He was transported to the PACU with vitals stable and vascular status intact. Intra operative xray was used to confirm proper biopsy site. Post operative orders were entered electronically. Estimated Blood Loss: <30 mL Specimen's removed: bone distal fibula sent to pathology. bone distal fibula sent to microbiology (aerobic, anearobic, acid fast, fungal, MRSA PCR) Type of Anesthesia:: None - Admit VTE Documentation VTE Present on Admission: No
--- NOTE | 2017-08-29 15:16 | OP.PN_ITS ---
Problem List (1) Ulcer of left lower extremity with fat layer exposed Status: Chronic (2) Osteomyelitis of left ankle Status: Acute (3) Malnutrition Status: Acute (4) Paraplegia Status: Chronic (5) Vascular disease, peripheral Status: Suspected (6) Type 2 diabetes mellitus with diabetic polyneuropathy Status: Chronic Immediate Post-Op Note Date of Procedure: 08/21/17 - surgeon: Rita Berry DPM. staffing assistant: Alycia Watlon PGY3 Primary Surgeon/Physician: Lety Berry DPM e learning developer: none Pre-Operative Diagnosis: rule out osteomyelitis distal fibula, left Post-Operative Diagnosis: rule out osteomyelitis distal fibula, left Surgery/Procedure Performed:: bone biopsy left distal fibula. debridement left ulcer Description of Surgical Findings:: hemostasis controlled see detailed operation report The patient tolerated the procedure and anesthesia well. He was transported to the PACU with vitals stable and vascular status intact. Intra operative xray was used to confirm proper biopsy site. Post operative orders were entered electronically. Estimated Blood Loss: <30 mL Specimen's removed: bone distal fibula sent to pathology. bone distal fibula sent to microbiology (aerobic, anearobic, acid fast, fungal, MRSA PCR) Type of Anesthesia:: None - Admit VTE Documentation VTE Present on Admission: No
--- NOTE | 2017-08-29 16:14 | PCM.PN.ID ---
Patient Problems: Active and Suspected Problems Abdominal pain (Acute) History of right above knee amputation (Acute) Acute kidney injury (Acute) Osteomyelitis of left ankle (Acute) Malnutrition (Acute) Vascular disease, peripheral (Suspected) Complicated UTI (urinary tract infection) (Acute) Constipation (Acute) Subjective: Feeling ok, still diarrhea, no fever - Physical Exam General: Alert, Cooperative, No apparent distress Lungs: Clear to auscultation, Normal air movement Cardiovascular: Regular rate, Regular Rhythm Abdomen: Soft, Non Tender, Non-Distended Skin: Ulcer/ Wound - leg wrapped Vital Signs Temp Pulse Resp BP Pulse Ox 99.1 F 79 16 132/65 H 99 08/29/17 15:20 08/29/17 15:20 08/29/17 15:20 08/29/17 15:20 08/29/17 15:20 Oxygen Delivery Method Room Air Weight: 101.5 kg Body Mass Index (BMI) 32.1 Intake and Output for Last 24 Hours 08/27/17 08/28/17 08/29/17 23:59 23:59 23:59 Intake Total 2564 / 2564 1534 / 1534 2218 / 2218 Output Total 1500 / 1500 1225 / 1225 1425 / 1425 Balance 1064 / 1064 309 / 309 793 / 793 Microbiology Past 72 Hours 08/28/17 09:05 Gram Stain - Final Wound - Aerobic & Anaerobic Swabs Wound Culture - Preliminary Gram positive organism Gram positive organism#2 08/26/17 17:10 Enteric Bacteriology - Final Stool 08/21/17 18:54 Blood Culture - Final Blood Culture (Wb) - Left Hand No growth in 5 days. 08/21/17 18:54 Blood Culture - Final Blood Culture (Wb) - Anticubital Left No growth in 5 days. 08/26/17 17:10 Stool Lactoferrin - Final Stool Laboratory Tests Past 24 Hrs 08/25/17 08/29/17 08/29/17 08:05 05:38 05:38 WBC 5.6 RBC 3.35 L Hgb 9.0 L Hct 28.5 L MCV 85.1 MCH 26.9 L MCHC 31.6 L RDW 15.4 H RDW Differential 48.1 H Plt Count 200 MPV 9.3 Hemoglobin A1c Vit D 1,25-Dihydroxy 48.8 TSH 3.38 08/29/17 05:38 WBC RBC Hgb Hct MCV MCH MCHC RDW RDW Differential Plt Count MPV Hemoglobin A1c 8.5 H Vit D 1,25-Dihydroxy TSH POC Glucose 08/29/17 08/29/17 08/28/17 14:04 06:54 16:18 POC Glucose 285 H 266 H 241 H Medical Necessity - Tobacco Use Smoking Status: Never smoker Route of nutrition/ use of supplements: [] Nutritional Intake: [] IV Site: [] Lozano Catheter: [] - Assessment/Plan Antibiotics: [] Assessment/Plan: [] Active and Suspected Problems Abdominal pain (Acute) History of right above knee amputation (Acute) Acute kidney injury (Acute) Complicated UTI (urinary tract infection) (Acute) Constipation (Acute) septic shock with L ankle osteo - no osteo of pelvis seen on CT on admission. Sacral cx with ecoli, kpneumo, lactobacillus, and providencia. Overall much improved.. Dr. Berry following, bone bx done 08/29. Ankle mrsa pcr (+) and wound cx now with GPC x2. Pt c/o more chills and feeling worse, this may correspond with him being off vanc for a few days now, so restarted vanc 08/28. chronic diarrhea - enteric pathogen panel neg, cdiff neg. Flagyl added by primary team. Would recommend GI referral outpt. Will follow, d/w Dr. Cavazos.
--- NOTE | 2017-08-29 16:47 | RAD_ITS ---
STUDY: X-RAY CHEST REASON FOR EXAM: Male, 71 years old. Postop shortness of breath TECHNIQUE: Single AP portable view of the chest. COMPARISON: Prior study of 08/21/2017 FINDINGS: There is a right-sided central venous line with tip in the region of the distal SVC. There is a limited inspiration. There is right basilar infiltrate and/or atelectasis. There is no demonstrated pleural abnormality. Normal size heart. Normal mediastinum and galdino. Normal visualized pulmonary arteries. Normal visualized aortic arch and descending thoracic aorta. Normal visualized thoracic spine. There are degenerative changes of the left shoulder joint. There is no demonstrated abnormality of the visualized soft tissue structures of the upper abdomen. RAD/Chest 1 View (Portable) IMPRESSION: 1. Increased density of the medial right lower lung field consistent with infiltrate and/or atelectasis. This is new in the interval. 2. Limited inspiration. 3. Right-sided central venous line with tip in the region of the distal SVC. 4. Degenerative changes of the left shoulder joint. Electronically Signed: Joe Dunn MD at 17:22 EDT , Service support ,
[2017-08-29] MEDS: Loperamide 2 MG Capsule PO ×2 (16:50→20:56)
[2017-08-29 17:01] LABS: Bedside Glucose 212 mg/dL (70-110)
[2017-08-29] MEDS: Calcium Carbonate 500 MG Tablet PO (17:02)
[2017-08-29] MEDS: Vancomycin IV 500 MG/100 ML BAG 100 MG IV (18:33)
--- NOTE | 2017-08-29 18:59 | PCM.OPRPT ---
Problem List (1) Osteomyelitis of left ankle Status: Suspected (2) Ulcer of left lower extremity with fat layer exposed Status: Chronic (3) Malnutrition Status: Acute (4) Paraplegia Status: Chronic (5) Vascular disease, peripheral Status: Suspected (6) Type 2 diabetes mellitus with diabetic polyneuropathy Status: Chronic Report of Operation Date of Procedure: 08/21/17 - surgeon: Rita Berry DPM. aquatics assistant department head: Alycia Walton PGY3 Pre-Operative Diagnosis: rule out osteomyelitis distal fibula, left Post-Operative Diagnosis: rule out osteomyelitis distal fibula, left Surgery/Procedure Performed:: bone biopsy left distal fibula. debridement left ulcer Description of Surgical Findings:: hemostasis: No tourniquet utilized. Anatomic dissection. Materials: 3-0 nylon, Adaptic Complications: None network relay tester: none Type of Anesthesia:: None Specimen's removed: bone distal fibula sent to pathology. bone distal fibula sent to microbiology (aerobic, anearobic, acid fast, fungal, MRSA PCR) Estimated Blood Loss (mL): <30 mL Description of Procedure: Indications: This 71-year-old male with significant past medical history of paraplegia at T4 level, hypercholesteremia, hyperlipidemia, hypertension, urostomy placement, history of kidney failure, hypothyroidism, diabetes, peripheral vascular disease, previous right above-knee amputation was recently admitted and has been treated for septic shock, urinary tract infections sacral and scrotal ulcers and diarrhea. He also has a chronic wound to the lateral aspect of his left ankle that has been present for approximately 2 months. He was recently seen in the wound care center and has undergone conservative care. The source of the sepsis has not been definitively identified. He recently had a culture of his wound which grew MRSA and now gram-negative bacteria. He understands his wound is chronic and there is concern of osteomyelitis deep to the wound due to the close proximity of the distal fibula. An MRI does demonstrate increased hyperintensity on T2 adjacent to the ulcer site with questionable hypointensity to the same region on T1. His labs are reviewed and he is no longer having leukocytosis. Strict offloading and nutritional supplementation have been implemented. The preoperative indications, planned procedure, possible benefits, risks, complications, anticipated healing time is were discussed in detail with patient. No guarantees were made. He understands and elects to proceed with surgery at this time. He understands he is at significant risk for continued limb loss and additional amputation. The surgical consent and surgical limb were signed. His preoperative medical history and diagnostic data were reviewed including labs, ankle x-rays, noninvasive vascular studies which demonstrate monophasic waveform and an KATHERIN of 0.4, and ankle MRI were reviewed. The medical team has preoperatively optimized him. I answered all his questions. Procedure in detail: The patient was transported to the operating room via cart and placed on the operating table in supine position. Final verification of the patient, surgery, and limb designation was performed via the timeout procedure. No local MAC or general anesthesia was performed to decrease his risk with the procedure. Is also noted he is a paraplegic and he does not have any sensation to the site. His leg was carefully bumped and elevated to allow good surgical exposure. The left lower extremity was prepped and draped in the usual aseptic manner. No tourniquet was utilized. Attention was first directed to the lateral posterior aspect of the ankle in which a less than 1 cm linear incision was made adjacent to the wound site through the skin. Blunt dissection was performed down directly to the lateral posterior aspect of the fibula in orientation to the concerning aspect identified on the MRI. A [employer] bone biopsy trocar was entered into the suspected osteomyelitis site of the fibula and was carefully maneuvered to remove a sample of bone. The sample was sent to pathology as well as microbiology for aerobic, anaerobic, acid-fast, and fungal and MRSA testing. Care was taken to identify, protect, retract all neurovascular bundles and tendinous structures throughout the entire procedure. Pressure was applied to maintain hemostasis. A curette was used to gently debride the wound bed. The wound was copiously irrigated with normal saline and pressure was applied to maintain hemostasis. No pulsatile bleeding was noted and capillary fill time remain consistent with the preoperative status during and after this procedure. Adaptic was applied and additional gauze, abdominal pad, and Kerlix wrap was used to cover the wound. It is noted that intraoperative fluoroscopy was utilized to confirm proper placement of the biopsy trocar. After procedure: The patient tolerated the procedure and anesthesia well. He was transferred to the PACU with vital signs stable and vascular status intact to left lower extremity. He will be transferred back to the regular medicine floor upon continued stability. He will continue on IV antibiotics under the management of infectious disease. A PICC line has been placed. Strict offloading was recommended. His microbiology and pathology specimens were sent and the results are pending. He will keep the dressing clean, dry, and intact. I will continue to follow him close while in house. Medical management and DVT prophylaxis per primary team is appreciated. Lety Berry DPM, [facility]
--- NOTE | 2017-08-29 19:10 | OP.PCM_ITS ---
Problem List (1) Osteomyelitis of left ankle Status: Suspected (2) Ulcer of left lower extremity with fat layer exposed Status: Chronic (3) Malnutrition Status: Acute (4) Paraplegia Status: Chronic (5) Vascular disease, peripheral Status: Suspected (6) Type 2 diabetes mellitus with diabetic polyneuropathy Status: Chronic Report of Operation Date of Procedure: 08/21/17 - surgeon: Rita Berry DPM. assistant teacher primary: Alycia Walton PGY3 Pre-Operative Diagnosis: rule out osteomyelitis distal fibula, left Post-Operative Diagnosis: rule out osteomyelitis distal fibula, left Surgery/Procedure Performed:: bone biopsy left distal fibula. debridement left ulcer Description of Surgical Findings:: hemostasis: No tourniquet utilized. Anatomic dissection. Materials: 3-0 nylon, Adaptic Complications: None boating safety officer: none Type of Anesthesia:: None Specimen's removed: bone distal fibula sent to pathology. bone distal fibula sent to microbiology (aerobic, anearobic, acid fast, fungal, MRSA PCR) Estimated Blood Loss (mL): <30 mL Description of Procedure: Indications: This 71-year-old male with significant past medical history of paraplegia at T4 level, hypercholesteremia, hyperlipidemia, hypertension, urostomy placement, history of kidney failure, hypothyroidism, diabetes, peripheral vascular disease , previous right above-knee amputation was recently admitted and has been treated for septic shock, urinary tract infections sacral and scrotal ulcers and diarrhea. He also has a chronic wound to the lateral aspect of his left ankle that has been present for approximately 2 months. He was recently seen in the wound care center and has undergone conservative care. The source of the sepsis has not been definitively identified. He recently had a culture of his wound which grew MRSA and now gram-negative bacteria. He understands his wound is chronic and there is concern of osteomyelitis deep to the wound due to the close proximity of the distal fibula. An MRI does demonstrate increased hyperintensity on T2 adjacent to the ulcer site with questionable hypointensity to the same region on T1. His labs are reviewed and he is no longer having leukocytosis. Strict offloading and nutritional supplementation have been implemented. The preoperative indications, planned procedure, possible benefits , risks, complications, anticipated healing time is were discussed in detail with patient. No guarantees were made. He understands and elects to proceed with surgery at this time. He understands he is at significant risk for continued limb loss and additional amputation. The surgical consent and surgical limb were signed. His preoperative medical history and diagnostic data were reviewed including labs, ankle x-rays, noninvasive vascular studies which demonstrate monophasic waveform and an KATHERIN of 0.4, and ankle MRI were reviewed. The medical team has preoperatively optimized him. I answered all his questions. Procedure in detail: The patient was transported to the operating room via cart and placed on the operating table in supine position. Final verification of the patient, surgery , and limb designation was performed via the timeout procedure. No local MAC or general anesthesia was performed to decrease his risk with the procedure. Is also noted he is a paraplegic and he does not have any sensation to the site. His leg was carefully bumped and elevated to allow good surgical exposure. The left lower extremity was prepped and draped in the usual aseptic manner. No tourniquet was utilized. Attention was first directed to the lateral posterior aspect of the ankle in which a less than 1 cm linear incision was made adjacent to the wound site through the skin. Blunt dissection was performed down directly to the lateral posterior aspect of the fibula in orientation to the concerning aspect identified on the MRI. A [employer] bone biopsy trocar was entered into the suspected osteomyelitis site of the fibula and was carefully maneuvered to remove a sample of bone. The sample was sent to pathology as well as microbiology for aerobic, anaerobic, acid-fast, and fungal and MRSA testing. Care was taken to identify, protect, retract all neurovascular bundles and tendinous structures throughout the entire procedure. Pressure was applied to maintain hemostasis. A curette was used to gently debride the wound bed. The wound was copiously irrigated with normal saline and pressure was applied to maintain hemostasis. No pulsatile bleeding was noted and capillary fill time remain consistent with the preoperative status during and after this procedure. Adaptic was applied and additional gauze, abdominal pad, and Kerlix wrap was used to cover the wound. It is noted that intraoperative fluoroscopy was utilized to confirm proper placement of the biopsy trocar. After procedure: The patient tolerated the procedure and anesthesia well. He was transferred to the PACU with vital signs stable and vascular status intact to left lower extremity. He will be transferred back to the regular medicine floor upon continued stability. He will continue on IV antibiotics under the management of infectious disease. A PICC line has been placed. Strict offloading was recommended. His microbiology and pathology specimens were sent and the results are pending. He will keep the dressing clean, dry, and intact. I will continue to follow him close while in house. Medical management and DVT prophylaxis per primary team is appreciated. Lety Berry DPM, [facility]
[2017-08-29] MEDS: Pravastatin 40 MG Tablet PO (20:55)
[2017-08-29] MEDS: Menthol/Lanolin/Calamine/Znox 113 GM Tube 1 APPLIC TOPICAL (20:56)
[2017-08-30] VITALS (7 sets, daily range): BP systolic 124–157; BP diastolic 59–74; PULSE 87–91; RESP 16–20; TEMP 36.6–36.9; O2SAT 98–99
[2017-08-30] MEDS: Levothyroxine 25 MCG TABLET PO (06:07)
[2017-08-30] MEDS: Sucralfate 1 GM Tablet PO ×4 (06:07→21:28)
[2017-08-30] MEDS: metroNIDAZOLE 500 MG Tablet PO ×3 (06:07→21:28)
[2017-08-30] MEDS: 0.9% NaCl Peripheral Flush Adult/Peds IV (06:11)
--- NOTE | 2017-08-30 06:30 | NURSING ---
[facility] lab off pt's central line from the blue port without difficulty ,unable to flush the brown port.
[2017-08-30 06:36] LABS: Absolute Lymphocyte Count 0.99 X10^3/ul (0.83-4.51); Absolute Neutrophil Count 3.8 X10^3/uL (2.0-7.7); Basophil# 0.02 X10^3/uL; Basophil% 0.4 % (0-1); Eosinophil# 0.27 X10^3/uL; Eosinophils% 4.8 % (0-5); Hematocrit 27.7 % (40-54); Hemoglobin 8.8 g/dl (13.0-16.5); Lymphocyte # 0.99 X10^3/ul (4.0); Lymphocyte % 17.6 % (19-41); Mean Corp Hgb Conc 31.8 g/gl (32-36); Mean Corpuscular Hgb 27.2 pg (27.0-32.0); Mean Corpuscular Volume 85.8 fL (80-94); Mean Platelet Vol. 9.4 fl (6.2-12.0); Monocyte# 0.48 X10^3/uL; Monocyte% 8.5 % (0-10); Neutrophil # 3.77 X10^3/uL (2.7-7.7); Neutrophil % 67.1 % (47-70); Platelet Count 226 K/mm3 (150-450); RBC Distribution Width SD 45.6 fl (35.1-43.9); Red Blood Count 3.23 M/mm3 (4.6-6.2); White Blood Count 5.6 K/mm3 (4.4-11.0)
[2017-08-30 06:40] LABS: POSITIVE COUNT NO; POSITIVE DIFFERENTIAL NO; POSITIVE MORPHOLOGY NO
[2017-08-30 06:43] LABS: International Normalized Ratio 1.4; Prothrombin Time (Protime)PT. 16.8 SECONDS (11.7-14.9)
[2017-08-30 07:11] LABS: Bedside Glucose 225 mg/dL (70-110)
[2017-08-30 07:19] LABS: ALB/GLOB Ratio 0.6 RATIO (0.9-2.4); AST(SGOT) 8 U/L (15-37); Alanine Aminotransfer ALT/SGPT < 6 U/L (16-61); Albumin, Serum 1.6 g/dL (3.2-5.0); Alkaline Phosphatase 58 U/L (45-117); Anion Gap 8 (5-15); BUN 38 mg/dL (7-18); BUN/Creat Ratio 28.6 RATIO (10-20); Chloride 111 mmol/L (98-107); Creatinine, Serum 1.33 mg/dL (0.70-1.30); EST Glomerular Filtration Rate 56 mL/min (>60); Est Glom Filt Rate - Afr Amer 68 mL/min (>60); Estimated Creatinine Clearance 51.08 ml/min; Globulin 2.6 g/dL (2.2-4.2); Glucose 226 mg/dL (74-106); Magnesium 1.2 mg/dL (1.6-2.6); Phosphorus 1.9 mg/dL (2.5-4.9); Potassium 3.2 mmol/L (3.5-5.1); Protein, Total 4.2 g/dL (6.4-8.2); Sodium Level 141 mmol/L (136-145)
[2017-08-30] MEDS: Ascorbic Acid 500 MG Tablet 1000 MG PO (09:46)
[2017-08-30] MEDS: Calcium Carbonate 500 MG Tablet PO ×2 (09:47→17:27)
[2017-08-30] MEDS: Loperamide 2 MG Capsule PO ×2 (09:47→21:25)
[2017-08-30] MEDS: Metoprolol Tartrate 25 MG Tablet PO ×2 (09:47→21:29)
[2017-08-30] MEDS: Pantoprazole Sodium 40 MG Tablet PO (09:47)
[2017-08-30] MEDS: Glimepiride 1 MG Tablet PO (09:48)
[2017-08-30] MEDS: Menthol/Lanolin/Calamine/Znox 113 GM Tube 1 APPLIC TOPICAL ×2 (09:51→21:25)
[2017-08-30] MEDS: Enoxaparin 40 MG/0.4 ML Syringe SC (09:51)
[2017-08-30] MEDS: CHLORHEXIDINE GLUC 2% CLOTH 1 EACH TOWELETTE TOPICAL (09:52)
--- NOTE | 2017-08-30 14:45 | PN_ITS ---
Patient Problems: Active and Suspected Problems Abdominal pain (Acute) History of right above knee amputation (Acute) Acute kidney injury (Acute) Osteomyelitis of left ankle (Suspected) Malnutrition (Acute) Vascular disease, peripheral (Suspected) Complicated UTI (urinary tract infection) (Acute) Constipation (Acute) Subjective: This 71-year-old male with multiple comorbidities was seen bedside today postoperative day #1 left distal fibula bone biopsy for workup of osteomyelitis adjacent to a chronic wound that has MRSA contamination. It is noted he has had recent sepsis and the source of the infection is not confirmed at this time. He is also undergoing a diarrhea workup and this is still in process. He denies fever, nausea, vomiting. He does have continued chills. - Physical Exam General: Alert, Oriented x3, Cooperative Extremities: No cyanosis, Capillary Refill Less than 3 Seconds - All toes left foot, No Calf Tenderness - Negative Silvestre sign and Nicolás however it is noted that he has paralysis, Diminished Peripheral Pulses - Nonpalpable left DP PT pulses, Edema - Mild left lower extremity, - - Right lower extremity amputation Skin: Ulcer/ Wound - Status post bone biopsy site has [address] adjacent to the wound posteriorly. The wound that also has improved granulation tissue with central fibrous tissue noted there is no direct probe to bone. There is no erythema odor streaking or stevie necrosis noted., - - The adjacent skin is hairless and atrophic Musculoskeletal: No Tenderness to Palpation of Joints or Extremities, Muscle Wasting Neurological: - - Lack of epicritic sensation light touch left lower extremity Psych/Mental Status: Normal Affect, Appropriate Vital Signs Temp Pulse Resp BP Pulse Ox 98.1 F 87 16 157/74 H 99 08/30/17 09:44 08/30/17 09:47 08/30/17 09:44 08/30/17 09:44 08/30/17 09:44 Oxygen Delivery Method Room Air Weight: 101.4 kg Body Mass Index (BMI) 32.1 Intake and Output for Last 24 Hours 08/28/17 08/29/17 08/30/17 23:59 23:59 23:59 Intake Total 1534 / 1534 2618 / 2618 1370 / 1370 Output Total 1225 / 1225 1974 / 1974 800 / 800 Balance 309 / 309 643 / 643 570 / 570 Microbiology Past 72 Hours 08/29/17 15:27 Gram Stain - Final Biopsy - Other Wound Culture - Preliminary No growth-Final to follow 08/28/17 09:05 Gram Stain - Final Wound - Aerobic & Anaerobic Swabs Wound Culture - Preliminary Gram positive selwyn Staphylococcus aureus Laboratory Tests Past 24 Hrs 08/30/17 08/30/17 08/30/17 06:15 06:15 06:15 WBC 5.6 RBC 3.23 L Hgb 8.8 L Hct 27.7 L MCV 85.8 MCH 27.2 MCHC 31.8 L RDW 15.0 H RDW Differential 45.6 H Plt Count 226 MPV 9.4 Immature Gran % (Auto) 1.600 H Neut % (Auto) 67.1 Lymph % (Auto) 17.6 L Moffat % (Auto) 8.5 Eos % (Auto) 4.8 Baso % (Auto) 0.4 Absolute Neuts (auto) 3.8 Absolute Lymphs (auto) 0.99 Total Counted Not Reportable PT INR Sodium 141 Potassium 3.2 L Chloride 111 H Carbon Dioxide 22.0 Anion Gap 8 BUN 38 H Creatinine 1.33 H Estim Creat Clear Calc 51.08 Est GFR (MDRD) Af Amer 68 Est GFR (MDRD) Non-Af 56 L BUN/Creatinine Ratio 28.6 H Glucose 226 H Calcium 7.0 L Phosphorus 1.9 L Magnesium 1.2 L Total Bilirubin 0.20 AST 8 L ALT < 6 L Alkaline Phosphatase 58 Total Protein 4.2 L Albumin 1.6 L Globulin 2.6 Albumin/Globulin Ratio 0.6 L Endomysial IgA Ab Pending 08/30/17 06:15 WBC RBC Hgb Hct MCV MCH MCHC RDW RDW Differential Plt Count MPV Immature Gran % (Auto) Neut % (Auto) Lymph % (Auto) Moffat % (Auto) Eos % (Auto) Baso % (Auto) Absolute Neuts (auto) Absolute Lymphs (auto) Total Counted PT 16.8 H INR 1.4 Sodium Potassium Chloride Carbon Dioxide Anion Gap BUN Creatinine Estim Creat Clear Calc Est GFR (MDRD) Af Amer Est GFR (MDRD) Non-Af BUN/Creatinine Ratio Glucose Calcium Phosphorus Magnesium Total Bilirubin AST ALT Alkaline Phosphatase Total Protein Albumin Globulin Albumin/Globulin Ratio Endomysial IgA Ab POC Glucose 08/30/17 08/29/17 07:02 16:38 POC Glucose 225 H 212 H Medical Necessity - Tobacco Use Smoking Status: Never smoker Assessment/Plan All Active Problems Abdominal pain (Acute) History of right above knee amputation (Acute) Acute kidney injury (Acute) Malnutrition (Acute) Septic shock (Acute) Pressure ulcer of sacral region, stage 3 (Acute) Scrotal ulcer (Acute) 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 (Acute) Complicated UTI (urinary tract infection) (Acute) Constipation (Acute) Pressure ulcer of perianal region (Resolved) Pressure ulcer of buttock (Resolved) UTI (urinary tract infection) (Acute) Left lateral ankle chronic ulcer concern for osteomyelitis of the distal fibula and rule out as potential source of recent sepsis; positive MRSA -now POD #1 distal fibula bone biopsy Diabetes with neuropathy Lower extremity edema Malnutrition Paralysis Peripheral vascular disease Recent acute kidney injury Diarrhea workup in process Other comorbidities I reviewed and discussed the case with the patient. I reviewed all of his diagnostic data. He does not have leukocytosis. A bone biopsy was obtained yesterday and surgery and is negative for bacterial growth so far. The pathology report is also still pending. His previous wound culture growth demonstrates MRSA. He continues on Unasyn, vancomycin, and Flagyl. A PICC line was placed and infectious disease is on consult which is greatly appreciated. His noninvasive vascular studies also demonstrate monophasic waveforms the left ankle with 0.4 KATHERIN. I recommend vascular surgery consultation. His foot is still warm to touch each however his pulses are nonpalpable and it is noted he has delayed wound healing of approximately 2 months to the ankle level. He will follow-up with vascular surgeon, Dr. Alarcon, in the outpatient setting. I also recommend strict offloading his pillows will be adjusted to float his ulcer site in the air. I recommend a donut pillow. To continue proper glycemic control nutritional supplementation (Alan ) to optimize healing. The wound was evaluated and redressed today with [employer]. I will continue to follow him close while in house. Medical management and DVT prophylaxis per primary team is appreciated. Please do not hesitate to call if you have any questions. Lety Berry DPM, [facility] [phone]
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
[2017-08-30] MEDS: Vancomycin IV 500 MG/100 ML BAG 100 MG IV (17:27)
[2017-08-30 18:08] LABS: Vancomycin, Trough Level 8.5 ug/mL (5.0-15.0)
[2017-08-30 18:50] LABS: Bedside Glucose 224 mg/dL (70-110)
--- NOTE | 2017-08-30 21:00 | PN.RENAL_ITS ---
Patient Problems: Active and Suspected Problems Abdominal pain (Acute) History of right above knee amputation (Acute) Acute kidney injury (Acute) Osteomyelitis of left ankle (Suspected) Malnutrition (Acute) Vascular disease, peripheral (Suspected) Complicated UTI (urinary tract infection) (Acute) Constipation (Acute) Subjective: Following for URSZULA. Pt denies CP, SOB or nausea. Diarrhea continues. - Physical Exam General: Alert, Oriented x3 HEENT: Atraumatic, TM's Clear Oral: Moist Mucosa Neck: Supple, No JVD Lungs: Clear to auscultation Cardiovascular: Normal S1, Normal S2, No murmurs Abdomen: Bowel Sounds Present, Soft, Non Tender Extremities: No edema Vital Signs Temp Pulse Resp BP Pulse Ox 98.3 F 87 16 150/72 H 98 08/30/17 17:34 08/30/17 15:23 08/30/17 15:23 08/30/17 15:23 08/30/17 15:23 Oxygen Delivery Method Room Air Weight: 101.4 kg Body Mass Index (BMI) 32.1 Intake and Output for Last 24 Hours 08/28/17 08/29/17 08/30/17 23:59 23:59 23:59 Intake Total 1534 / 1534 2618 / 2618 2761 / 2761 Output Total 1225 / 1225 1974 / 1974 1925 / 1925 Balance 309 / 309 643 / 643 836 / 836 Microbiology Past 72 Hours 08/28/17 09:05 Gram Stain - Final Wound - Aerobic & Anaerobic Swabs Wound Culture - Preliminary Gram positive selwyn Staphylococcus aureus Anaerobic Culture - Preliminary Checking for anaerobes, further studies to follow. 08/29/17 15:27 Gram Stain - Final Biopsy - Other Wound Culture - Preliminary No growth-Final to follow Laboratory Tests Past 24 Hrs 08/30/17 08/30/17 08/30/17 06:15 06:15 06:15 WBC 5.6 RBC 3.23 L Hgb 8.8 L Hct 27.7 L MCV 85.8 MCH 27.2 MCHC 31.8 L RDW 15.0 H RDW Differential 45.6 H Plt Count 226 MPV 9.4 Immature Gran % (Auto) 1.600 H Neut % (Auto) 67.1 Lymph % (Auto) 17.6 L [place] % (Auto) 8.5 Eos % (Auto) 4.8 Baso % (Auto) 0.4 Absolute Neuts (auto) 3.8 Absolute Lymphs (auto) 0.99 Total Counted Not Reportable PT INR Sodium 141 Potassium 3.2 L Chloride 111 H Carbon Dioxide 22.0 Anion Gap 8 BUN 38 H Creatinine 1.33 H Estim Creat Clear Calc 51.08 Est GFR (MDRD) Af Amer 68 Est GFR (MDRD) Non-Af 56 L BUN/Creatinine Ratio 28.6 H Glucose 226 H Calcium 7.0 L Phosphorus 1.9 L Magnesium 1.2 L Total Bilirubin 0.20 AST 8 L ALT < 6 L Alkaline Phosphatase 58 Total Protein 4.2 L Albumin 1.6 L Globulin 2.6 Albumin/Globulin Ratio 0.6 L Vancomycin Trough Endomysial IgA Ab Pending 08/30/17 08/30/17 06:15 17:25 WBC RBC Hgb Hct MCV MCH MCHC RDW RDW Differential Plt Count MPV Immature Gran % (Auto) Neut % (Auto) Lymph % (Auto) [place] % (Auto) Eos % (Auto) Baso % (Auto) Absolute Neuts (auto) Absolute Lymphs (auto) Total Counted PT 16.8 H INR 1.4 Sodium Potassium Chloride Carbon Dioxide Anion Gap BUN Creatinine Estim Creat Clear Calc Est GFR (MDRD) Af Amer Est GFR (MDRD) Non-Af BUN/Creatinine Ratio Glucose Calcium Phosphorus Magnesium Total Bilirubin AST ALT Alkaline Phosphatase Total Protein Albumin Globulin Albumin/Globulin Ratio Vancomycin Trough 8.5 Endomysial IgA Ab POC Glucose 08/30/17 08/30/17 18:44 07:02 POC Glucose 224 H 225 H Medical Necessity - Tobacco Use Smoking Status: Never smoker Assessment/Plan All Active Problems Abdominal pain (Acute) History of right above knee amputation (Acute) Acute kidney injury (Acute) Malnutrition (Acute) Septic shock (Acute) Pressure ulcer of sacral region, stage 3 (Acute) Scrotal ulcer (Acute) 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 non oliguric. Resolving. URSZULA is secondary to ischemic ATN. CT showed chronic left hydronephrosis with left atrophic kidney Cr is improving. Continue to encourage oral intake. Continue present treatment. Recheck Cr again in am. 2- hypokalemia: 2/2 GI loss. Agree with replacement (got extra dose of 40 mEq KCl today). Recheck K in am. 3- hypomagnesemia: Also likely due to GI oss. Mg 1.2. Will replace IV to avoid exacerbation of diarrhea. 4- L ankle osteomyelitis. Better. On Abx as per primary/ID services. Podiatry following. 5- Diarrhea . C. difficile is negative. Management as per the primary physician Will continue to follow
[2017-08-30] MEDS: Pravastatin 40 MG Tablet PO (21:28)
[2017-08-30 22:26] LABS: Bedside Glucose 240 mg/dL (70-110)
[2017-08-31] VITALS (8 sets, daily range): BP systolic 132–149; BP diastolic 64–80; PULSE 80–91; RESP 16–18; TEMP 36.6–36.9; O2SAT 97–99
[2017-08-31] MEDS: 0.9% NaCl Peripheral Flush Adult/Peds IV ×2 (05:19→09:22)
[2017-08-31] MEDS: Levothyroxine 25 MCG TABLET PO (05:24)
[2017-08-31] MEDS: metroNIDAZOLE 500 MG Tablet PO ×3 (05:24→21:32)
[2017-08-31 06:03] LABS: Absolute Lymphocyte Count 0.97 X10^3/ul (0.83-4.51); Absolute Neutrophil Count 4.3 X10^3/uL (2.0-7.7); Basophil# 0.01 X10^3/uL; Basophil% 0.2 % (0-1); Eosinophil# 0.25 X10^3/uL; Eosinophils% 4.2 % (0-5); Hematocrit 28.3 % (40-54); Hemoglobin 8.7 g/dl (13.0-16.5); Lymphocyte # 0.97 X10^3/ul (4.0); Lymphocyte % 16.3 % (19-41); Mean Corp Hgb Conc 30.7 g/gl (32-36); Mean Corpuscular Hgb 26.4 pg (27.0-32.0); Mean Platelet Vol. 9.7 fl (6.2-12.0); Monocyte# 0.39 X10^3/uL; Monocyte% 6.5 % (0-10); Neutrophil # 4.25 X10^3/uL (2.7-7.7); Neutrophil % 71.3 % (47-70); Platelet Count 224 K/mm3 (150-450); RBC Distribution Width SD 46.1 fl (35.1-43.9); Red Blood Count 3.29 M/mm3 (4.6-6.2)
[2017-08-31 06:04] LABS: POSITIVE COUNT NO; POSITIVE DIFFERENTIAL NO; POSITIVE MORPHOLOGY NO
[2017-08-31 06:22] LABS: Anion Gap 8 (5-15); BUN 30 mg/dL (7-18); BUN/Creat Ratio 24.8 RATIO (10-20); Chloride 111 mmol/L (98-107); Creatinine, Serum 1.21 mg/dL (0.70-1.30); EST Glomerular Filtration Rate 62 mL/min (>60); Est Glom Filt Rate - Afr Amer 75 mL/min (>60); Estimated Creatinine Clearance 56.14 ml/min; Glucose 211 mg/dL (74-106); Magnesium 1.8 mg/dL (1.6-2.6); Potassium 3.4 mmol/L (3.5-5.1); Sodium Level 140 mmol/L (136-145)
[2017-08-31 06:45] LABS: Bedside Glucose 185 mg/dL (70-110)
[2017-08-31] MEDS: Sucralfate 1 GM Tablet PO ×4 (06:57→21:32)
--- NOTE | 2017-08-31 07:02 | PCM.RX.CS ---
Consult Pharmacy has been consulted to manage selected antiobiotic: Vancomycin Type of Consult: Follow-up Labs: Sodium 140 mmol/L (136-145) 08/31/17 05:10 Potassium 3.4 mmol/L (3.5-5.1) L 08/31/17 05:10 Chloride 111 mmol/L (98-107) H 08/31/17 05:10 Carbon Dioxide 21.0 mmol/L (21.0-32.0) 08/31/17 05:10 Anion Gap 8 (5-15) 08/31/17 05:10 BUN 30 mg/dL (7-18) H 08/31/17 05:10 Creatinine 1.21 mg/dL (0.70-1.30) 08/31/17 05:10 Est GFR (MDRD) Af Amer 75 mL/min (>60) 08/31/17 05:10 Est GFR (MDRD) Non-Af 62 mL/min (>60) 08/31/17 05:10 BUN/Creatinine Ratio 24.8 RATIO (10-20) H 08/31/17 05:10 Glucose 211 mg/dL (74-106) H 08/31/17 05:10 Vancomycin Trough 8.5 ug/mL (5.0-15.0) 08/30/17 17:25 Random Vancomycin 17.8 ug/mL (0.0-15.0) H 08/24/17 10:50 Microbiology: Microbiology 08/28/17 09:05 Wound - Aerobic & Anaerobic Swabs Gram Stain - Final 08/28/17 09:05 Wound - Aerobic & Anaerobic Swabs Wound Culture - Preliminary Gram positive selwyn Staphylococcus aureus 08/28/17 09:05 Wound - Aerobic & Anaerobic Swabs Anaerobic Culture - Preliminary Checking for anaerobes, further studies to follow. 08/29/17 15:27 Biopsy - Other Gram Stain - Final 08/29/17 15:27 Biopsy - Other Wound Culture - Preliminary No growth-Final to follow 08/26/17 17:10 Stool Enteric Bacteriology - Final 08/21/17 18:54 Blood Culture (Wb) - Left Hand Blood Culture - Final No growth in 5 days. 08/21/17 18:54 Blood Culture (Wb) - Anticubital Left Blood Culture - Final No growth in 5 days. 08/26/17 17:10 Stool Stool Lactoferrin - Final 08/25/17 15:30 Stool C. difficile DNA Amplification - Final 08/25/17 15:30 Stool Stool Occult Blood (DWAYNE) - Final Occult Blood Positive 08/21/17 23:00 Wound - Buttock Gram Stain - Final 08/21/17 23:00 Wound - Buttock Wound Culture - Final Escherichia coli Klebsiella pneumoniae sp pneum Providencia alcalifaciens Lactobacillus hilgardii 08/21/17 19:30 Urine, Catheterized Urine Culture - Final Culture exhibits no growth. 08/21/17 19:30 Stool C. difficile DNA Amplification - Final Goal Trough: 15-20 mcg/mL Pharmacy Plan for Drug Dosing: Pharmacy Service will continue to monitor and adjust dosing as required. Medications Vancomycin HCl (Vancomycin) 1,000 mg in 200 mls @ 200 mls/hr IV Q24H [facility] Follow-Up Labs: Trough Vancomycin Labs to be done on [date and time ordered]: 09/02 @1800
[2017-08-31] MEDS: Ascorbic Acid 500 MG Tablet 1000 MG PO (09:22)
[2017-08-31] MEDS: Metoprolol Tartrate 25 MG Tablet PO ×2 (09:22→21:32)
[2017-08-31] MEDS: Pantoprazole Sodium 40 MG Tablet PO (09:22)
[2017-08-31] MEDS: Enoxaparin 40 MG/0.4 ML Syringe SC (09:22)
[2017-08-31] MEDS: Loperamide 2 MG Capsule PO ×2 (09:23→21:32)
[2017-08-31] MEDS: Glimepiride 1 MG Tablet PO (09:23)
[2017-08-31] MEDS: Calcium Carbonate 500 MG Tablet PO ×2 (09:23→17:32)
[2017-08-31] MEDS: Menthol/Lanolin/Calamine/Znox 113 GM Tube 1 APPLIC TOPICAL ×2 (09:25→21:44)
--- NOTE | 2017-08-31 10:17 | PCM.PN.SRG ---
Patient Problems: Active and Suspected Problems Abdominal pain (Acute) History of right above knee amputation (Acute) Acute kidney injury (Acute) Osteomyelitis of left ankle (Suspected) Malnutrition (Acute) Vascular disease, peripheral (Suspected) Complicated UTI (urinary tract infection) (Acute) Constipation (Acute) Subjective: Patient has had no change in his loose stools. Not complaining of any abdominal pain. Objective: Abdomen is soft obese and obtuse - Physical Exam Vital Signs Temp Pulse Resp BP Pulse Ox 97.8 F 84 18 149/72 H 99 08/31/17 09:37 08/31/17 09:37 08/31/17 09:37 08/31/17 09:37 08/31/17 09:37 Oxygen Delivery Method Room Air Weight: 258 lb 9.636 oz Body Mass Index (BMI) 32.1 Intake and Output for Last 24 Hours 08/29/17 08/30/17 08/31/17 23:59 23:59 23:59 Intake Total 2618 / 2618 2761 / 2761 1265 / 1265 Output Total 1974 / 1974 1925 / 1925 1050 / 1050 Balance 643 / 643 836 / 836 215 / 215 Microbiology Past 72 Hours 08/28/17 09:05 Gram Stain - Final Wound - Aerobic & Anaerobic Swabs Wound Culture - Final Corynebacterium striatum Meth. resistant Staph. aureus Anaerobic Culture - Preliminary Checking for anaerobes, further studies to follow. 08/29/17 15:27 Gram Stain - Final Biopsy - Other Wound Culture - Preliminary No growth-Final to follow Laboratory Tests Past 24 Hrs 08/30/17 08/31/17 08/31/17 17:25 05:10 05:10 WBC 6.0 RBC 3.29 L Hgb 8.7 L Hct 28.3 L MCV 86.0 MCH 26.4 L MCHC 30.7 L RDW 15.0 H RDW Differential 46.1 H Plt Count 224 MPV 9.7 Immature Gran % (Auto) 1.500 H Neut % (Auto) 71.3 H Lymph % (Auto) 16.3 L [place] % (Auto) 6.5 Eos % (Auto) 4.2 Baso % (Auto) 0.2 Absolute Neuts (auto) 4.3 Absolute Lymphs (auto) 0.97 Total Counted Not Reportable Sodium 140 Potassium 3.4 L Chloride 111 H Carbon Dioxide 21.0 Anion Gap 8 BUN 30 H Creatinine 1.21 Estim Creat Clear Calc 56.14 Est GFR (MDRD) Af Amer 75 Est GFR (MDRD) Non-Af 62 BUN/Creatinine Ratio 24.8 H Glucose 211 H Calcium 7.0 L Magnesium 1.8 Vancomycin Trough 8.5 POC Glucose 08/31/17 08/30/17 08/30/17 06:42 22:14 18:44 POC Glucose 185 H 240 H 224 H Medical Necessity - Tobacco Use Smoking Status: Never smoker Assessment/Plan All Active Problems Abdominal pain (Acute) History of right above knee amputation (Acute) Acute kidney injury (Acute) Malnutrition (Acute) Septic shock (Acute) Pressure ulcer of sacral region, stage 3 (Acute) Scrotal ulcer (Acute) 

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
--- NOTE | 2017-08-31 11:24 | PCM.PROGNOTE ---
Patient Problems: Active and Suspected Problems Abdominal pain (Acute) History of right above knee amputation (Acute) Acute kidney injury (Acute) Osteomyelitis of left ankle (Suspected) Malnutrition (Acute) Vascular disease, peripheral (Suspected) Complicated UTI (urinary tract infection) (Acute) Constipation (Acute) - Physical Exam General: Alert, Oriented x3, Cooperative Extremities: No cyanosis, Capillary Refill Less than 3 Seconds - All digits left foot, No Calf Tenderness, Diminished Peripheral Pulses - Left nonpalpable PT and DP pulses, - - Paralysis lower extremity Skin: Ulcer/ Wound - No purulence, erythema, streaking, odor, infection. The wound is fibrous and granular. There is new dusky pressure change noted to the adjacent to the proximal aspect of the wound. The incision site has [address] to look stable. There is no purulence on expression. There is no odor., - - The adjacent skin is atrophic. Left foot 1, 2, 3, 4, 5 are long and mildly thickened with subungual debris Musculoskeletal: No Tenderness to Palpation of Joints or Extremities, Muscle Wasting Neurological: - - Lack of epicritic sensation light touch Psych/Mental Status: Normal Affect, Appropriate Vital Signs Temp Pulse Resp BP Pulse Ox 97.8 F 84 18 149/72 H 99 08/31/17 09:37 08/31/17 09:37 08/31/17 09:37 08/31/17 09:37 08/31/17 09:37 Oxygen Delivery Method Room Air Weight: 117.3 kg Body Mass Index (BMI) 32.1 Intake and Output for Last 24 Hours 08/29/17 08/30/17 08/31/17 23:59 23:59 23:59 Intake Total 2618 / 2618 2761 / 2761 1265 / 1265 Output Total 1974 / 1974 1925 / 192 1050 / 1050 Balance 643 / 643 836 / 836 215 / 215 Microbiology Past 72 Hours 08/28/17 09:05 Gram Stain - Final Wound - Aerobic & Anaerobic Swabs Wound Culture - Final Corynebacterium striatum Meth. resistant Staph. aureus Anaerobic Culture - Preliminary Checking for anaerobes, further studies to follow. 08/29/17 15:27 Gram Stain - Final Biopsy - Other Wound Culture - Preliminary No growth-Final to follow Laboratory Tests Past 24 Hrs 08/30/17 08/31/17 08/31/17 17:25 05:10 05:10 WBC 6.0 RBC 3.29 L Hgb 8.7 L Hct 28.3 L MCV 86.0 MCH 26.4 L MCHC 30.7 L RDW 15.0 H RDW Differential 46.1 H Plt Count 224 MPV 9.7 Immature Gran % (Auto) 1.500 H Neut % (Auto) 71.3 H Lymph % (Auto) 16.3 L [place] % (Auto) 6.5 Eos % (Auto) 4.2 Baso % (Auto) 0.2 Absolute Neuts (auto) 4.3 Absolute Lymphs (auto) 0.97 Total Counted Not Reportable Sodium 140 Potassium 3.4 L Chloride 111 H Carbon Dioxide 21.0 Anion Gap 8 BUN 30 H Creatinine 1.21 Estim Creat Clear Calc 56.14 Est GFR (MDRD) Af Amer 75 Est GFR (MDRD) Non-Af 62 BUN/Creatinine Ratio 24.8 H Glucose 211 H Calcium 7.0 L Magnesium 1.8 Vancomycin Trough 8.5 POC Glucose 08/31/17 08/30/17 08/30/17 06:42 22:14 18:44 POC Glucose 185 H 240 H 224 H Medical Necessity - Tobacco Use Smoking Status: Never smoker Assessment/Plan All Active Problems Abdominal pain (Acute) History of right above knee amputation (Acute) Acute kidney injury (Acute) Malnutrition (Acute) Septic shock (Acute) Pressure ulcer of sacral region, stage 3 (Acute) Scrotal ulcer (Acute) 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 (Acute) Complicated UTI (urinary tract infection) (Acute) Constipation (Acute) Pressure ulcer of perianal region (Resolved) Pressure ulcer of buttock (Resolved) UTI (urinary tract infection) (Acute) Left lateral ankle chronic ulcer concern for osteomyelitis of the distal fibula and rule out as potential source of recent sepsis; positive MRSA -now POD #2 distal fibula bone biopsy Diabetes with neuropathy Lower extremity edema Malnutrition Paralysis Peripheral vascular disease Other comorbidities I reviewed and discussed the case with the patient. I reviewed all of his diagnostic data. A bone biopsy was obtained on 08.29.17 and is negative for bacterial growth so far. The pathology report is also still pending. His previous wound culture growth demonstrates MRSA. He continues on Unasyn, vancomycin, and Flagyl. A PICC line was placed and infectious disease is on consult which is greatly appreciated. His noninvasive vascular studies also demonstrate monophasic waveforms the left ankle with 0.4 KATHERIN. I recommend vascular surgery consultation. His foot is still warm to touch each however his pulses are nonpalpable and it is noted he has delayed wound healing of approximately 2 months to the ankle level. He will follow-up with vascular surgeon, Dr. Alarcon, in the outpatient setting. I also recommend strict offloading his pillows will be adjusted to float his ulcer site in the air. She has some additional pressure changes suggesting that this is not being fully offloaded while he is resting. I recommend a donut offloading pillow; this order will be included in his d/c podiatry document so he can obtain this at [employer]. To continue proper glycemic control nutritional supplementation (Alan ) to optimize healing. The wound was evaluated and redressed today with [employer] [facility] [employer]. Upon discharge home it is okay to change dressing daily with Santyl applied in nickel thickness. His toenails were trimmed in length and thickness to the left foot including toes 1, 2, 3, 4, 5 with a nail nipper. This is performed to reduce pressure or wound formation. He tolerated this well without incident. I will continue to follow him close while in house. Medical management and DVT prophylaxis per primary team is appreciated. Okay to discharge from a podiatric standpoint. I recommend he follows up at the wound care center next week. Please do not hesitate to call if you have any questions. Lety Berry DPM, [facility] [phone]
--- NOTE | 2017-08-31 11:30 | PCM.DC.POD ---
Weight Bearing Status: No weight bearing Keep extremity elevated above heart level: Left Leg Call your doctor if your incision/area has: Continuous Slow Oozing, Sudden Increased Bleeding, Increased Pain/ Swelling, Increased Redness, Foul Smelling Discharge, Swelling at the incision site Call your doctor if you observe: Fever of 101 or Higher Cleanse incision/area with: - - Change dressing the left lateral ankle with Santyl applied in nickel thickness daily cover with gauze and padded well. Additional Instructions: Obtain offloading donut pillow for left lower extremity to reduce pressure to left lateral ankle ulcer with fat layer exposed. This may be obtained from [employer]. Allergies/Adverse Reactions: Allergies codeine Adverse Reaction (Verified 08/21/17 11:39) heavy sweats prednisone Adverse Reaction (Verified 08/21/17 11:39) headache, heavy sweats Medications to take at Discharge Metformin HCl 1,000 mg PO BID #0 05/26/14 Ascorbic Acid [C-1000] 1,000 mg PO DAILY 01/02/15 Glimepiride [Amaryl] 4 mg PO DAILY 01/02/15 Levothyroxine [Synthroid] 25 mcg PO DAILY 01/02/15 Metoprolol Tartrate [Lopressor (beta jose)] 25 mg PO BID 01/02/15 colestipol 1 gram tablet 4 gm PO DAILY 05/28/17 omeprazole 40 mg capsule,delayed release 40 mg PO QDAY 05/28/17 pravastatin 10 mg tablet 40 mg PO QHS tab 05/28/17 zinc 50 mg tablet 50 mg PO DAILY 05/28/17 Sucralfate [Carafate] 1 gm PO 4X/DAY #120 tab 06/20/17 Diphenoxylate HCl/Atropine [Lomotil 2.5-0.025 mg Tablet] 1 each PO DAILY PRN PRN 08/21/17 Primary Care Physician: Angelina Caceres DO [Primary Care Provider] - Test Results: Test results from this visit will be discussed in further detail at your follow-up appointment, if applicable. Please Follow Up With: Dr. Bashir or Kristi When: [facility]
[2017-08-31 17:20] LABS: Bedside Glucose 255 mg/dL (70-110)
[2017-08-31] MEDS: Vancomycin IV 1,000 MG/200 ML BAG 200 MG IV (17:32)
[2017-08-31] MEDS: Pravastatin 40 MG Tablet PO (21:33)
[2017-09-01] VITALS (7 sets, daily range): BP systolic 131–158; BP diastolic 69–82; PULSE 86–96; RESP 16–19; TEMP 36.6–36.8; O2SAT 96–100
[2017-09-01] MEDS: 0.9% NaCl Peripheral Flush Adult/Peds IV (05:00)
[2017-09-01] MEDS: Levothyroxine 25 MCG TABLET PO (05:00)
[2017-09-01] MEDS: metroNIDAZOLE 500 MG Tablet PO (05:00)
[2017-09-01 05:23] LABS: Magnesium 1.4 mg/dL (1.6-2.6)
[2017-09-01 06:26] LABS: Bedside Glucose 183 mg/dL (70-110)
[2017-09-01] MEDS: Sucralfate 1 GM Tablet PO ×2 (06:36→18:38)
[2017-09-01] MEDS: Collagenase 30gm Tube 1 APPLIC TOPICAL (08:14)
[2017-09-01] MEDS: Enoxaparin 40 MG/0.4 ML Syringe SC (08:39)
[2017-09-01] MEDS: Menthol/Lanolin/Calamine/Znox 113 GM Tube 1 APPLIC TOPICAL ×2 (08:39→22:56)
[2017-09-01] MEDS: Loperamide 2 MG Capsule PO ×2 (08:39→22:55)
[2017-09-01] MEDS: Ascorbic Acid 500 MG Tablet 1000 MG PO (08:40)
[2017-09-01] MEDS: Pantoprazole Sodium 40 MG Tablet PO (08:52)
[2017-09-01] MEDS: Metoprolol Tartrate 25 MG Tablet PO ×2 (08:52→22:55)
[2017-09-01] MEDS: Glimepiride 1 MG Tablet PO (08:53)
[2017-09-01] MEDS: Calcium Carbonate 500 MG Tablet PO ×2 (08:53→18:37)
--- NOTE | 2017-09-01 09:42 | NURSING ---
wound photo: left lateral malleolus
--- NOTE | 2017-09-01 11:13 | CASEMGMT ---
Addendum entered by Bela Isaac 09/01/17 13:52: SW updated RN CHERYL Arora that pt will need set up with IV antibiotics at discharge. Original Note: Social Work Note SW met with pt to confirm discharge plans. Pt is alert and orientated. Pt confirms that he wishes to discharge home and adamently refuses SNF placement. SW informed pt that it is sounding like he will be on IV antibiotics for six weeks. Pt states that he had a port put in his arm and he feels confident that he is able to take care of himself at home with the help from his HHC, aides, daughter and family friend Lexi. SW will update RN CM of this as IV antibiotics will need to be set up for pt. Plan: Pt wishes to discharge home with resumption of HHC, aides, and support from his daughter and family friend. Bela Isaac [employer], TROUBLE DISPATCHER
[2017-09-01 13:51] LABS: Bedside Glucose 285 mg/dL (70-110)
--- NOTE | 2017-09-01 14:36 | PCM.PN.REN ---
Patient Problems: Active and Suspected Problems Abdominal pain (Acute) History of right above knee amputation (Acute) Acute kidney injury (Acute) Osteomyelitis of left ankle (Suspected) Malnutrition (Acute) Vascular disease, peripheral (Suspected) Complicated UTI (urinary tract infection) (Acute) Constipation (Acute) Subjective: no new complaints - Physical Exam General: Alert, Oriented x3, Cooperative HEENT: Atraumatic, PERRLA, EOMI, Normocephalic Neck: Supple, No JVD, Negative Carotid Bruits Lungs: Clear to auscultation, Normal air movement Cardiovascular: Regular rate, No murmurs Abdomen: Bowel Sounds Present, Soft, Non Tender Extremities: No edema, Capillary Refill Less than 3 Seconds Skin: No rashes, No breakdown Musculoskeletal: No Tenderness to Palpation of Joints or Extremities Neurological: Cranial nerves II-XII grossly intact Psych/Mental Status: Normal Affect, Appropriate Vital Signs Temp Pulse Resp BP Pulse Ox 97.9 F 88 18 145/82 H 100 09/01/17 09:01 09/01/17 09:01 09/01/17 09:01 09/01/17 09:01 09/01/17 09:01 Oxygen Delivery Method Room Air Weight: 103.3 kg Body Mass Index (BMI) 32.1 Intake and Output for Last 24 Hours 08/30/17 08/31/17 09/01/17 23:59 23:59 23:59 Intake Total 2761 / 2761 2748 / 2748 995 / 995 Output Total 1925 / 1925 1974 / 1974 1325 / 1325 Balance 836 / 836 773 / 773 -330 / -330 Microbiology Past 72 Hours 08/28/17 09:05 Gram Stain - Final Wound - Aerobic & Anaerobic Swabs Wound Culture - Final Corynebacterium striatum Meth. resistant Staph. aureus Anaerobic Culture - Final No anaerobic bacteria isolated. 08/29/17 15:27 Gram Stain - Final Biopsy - Other Wound Culture - Preliminary No growth-Final to follow Laboratory Tests Past 24 Hrs 09/01/17 04:47 Magnesium 1.4 L POC Glucose 09/01/17 09/01/17 08/31/17 13:30 06:21 17:17 POC Glucose 285 H 183 H 255 H Medical Necessity - Tobacco Use Smoking Status: Never smoker Assessment/Plan All Active Problems Type 2 diabetes mellitus with diabetic polyneuropathy (Acute) Abdominal pain (Acute) History of right above knee amputation (Acute) Acute kidney injury (Acute) Malnutrition (Acute) Septic shock (Acute) Pressure ulcer of sacral region, stage 3 (Acute) Scrotal ulcer (Acute) 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 non oliguric. Resolving. URSZULA is secondary to ischemic ATN. CT showed chronic left hydronephrosis with left atrophic kidney (old finding) Cr is improving. 2- hypokalemia: 2/2 GI loss. better 3- hypomagnesemia: Also likely due to GI oss. Mg 1.2. better 4- L ankle osteomyelitis. Better. On Abx as per primary/ID services. Podiatry following. 5- Diarrhea . C. difficile is negative. 6- scrotal edema. he has significant scrotal edema. most likely dependent edema. difficult to give large amounts of diuretics as he has significant diarrhea but will start low dose lasix for now. may need more K supplements.
--- NOTE | 2017-09-01 15:25 | CPS ---
Patient reported just having done PEP therapy x 15 min.
--- NOTE | 2017-09-01 15:31 | PCM.PN.ID ---
Patient Problems: Active and Suspected Problems Abdominal pain (Acute) History of right above knee amputation (Acute) Acute kidney injury (Acute) Osteomyelitis of left ankle (Suspected) Malnutrition (Acute) Vascular disease, peripheral (Suspected) Complicated UTI (urinary tract infection) (Acute) Constipation (Acute) Subjective: Feeling ok, still having diarrhea, no fever - Physical Exam General: Alert, Cooperative, No apparent distress Lungs: Clear to auscultation, Normal air movement Cardiovascular: Regular rate, Regular Rhythm Abdomen: Soft, Non Tender, Non-Distended Skin: No rashes, Ulcer/ Wound - bandaged Vital Signs Temp Pulse Resp BP Pulse Ox 97.9 F 88 18 145/82 H 98 09/01/17 09:01 09/01/17 09:01 09/01/17 09:01 09/01/17 09:01 09/01/17 15:00 Oxygen Delivery Method Room Air Weight: 103.3 kg Body Mass Index (BMI) 32.1 Intake and Output for Last 24 Hours 08/30/17 08/31/17 09/01/17 23:59 23:59 23:59 Intake Total 2761 / 2761 2748 / 2748 995 / 995 Output Total 1925 / 1925 1974 / 1974 1325 / 1325 Balance 836 / 836 773 / 773 -330 / -330 Microbiology Past 72 Hours 08/29/17 15:27 Gram Stain - Final Biopsy - Other Wound Culture - Preliminary No growth-Final to follow Anaerobic Culture - Preliminary No growth in 48 hours. 08/28/17 09:05 Gram Stain - Final Wound - Aerobic & Anaerobic Swabs Wound Culture - Final Corynebacterium striatum Meth. resistant Staph. aureus Anaerobic Culture - Final No anaerobic bacteria isolated. Laboratory Tests Past 24 Hrs 09/01/17 04:47 Magnesium 1.4 L POC Glucose 09/01/17 09/01/17 08/31/17 13:30 06:21 17:17 POC Glucose 285 H 183 H 255 H Medical Necessity - Tobacco Use Smoking Status: Never smoker Route of nutrition/ use of supplements: [] Nutritional Intake: [] IV Site: [] Lozano Catheter: [] - Assessment/Plan Antibiotics: [] Assessment/Plan: [] Active and Suspected Problems Abdominal pain (Acute) History of right above knee amputation (Acute) Acute kidney injury (Acute) Complicated UTI (urinary tract infection) (Acute) Constipation (Acute) septic shock with L ankle osteo - no osteo of pelvis seen on CT on admission. Sacral cx with ecoli, kpneumo, lactobacillus, and providencia. Overall much improved. Dr. Berry following, bone bx done 08/29. Ankle mrsa pcr (+) and wound cx now with staph and diphtheroids. Plan on at least 6 week course of iv vanc, stop date 10/09/17. Weekly bmp, cbc, esr, vanc trough. Will stop unasyn. chronic diarrhea - enteric pathogen panel neg, cdiff neg. No improvement with 5 days of flagyl. Will stop. Would recommend GI referral outpt. Will follow, d/w therapeutic case manager. Rx for labs and abx written.
--- NOTE | 2017-09-01 15:49 | NURSING ---
Dr. Llamas in this afternoon to see pt and this nurse was in the room at the same time. This nurse showed him the Severe edema to Scrotum and penis.
--- NOTE | 2017-09-01 16:36 | CASEMGMT ---
YOVANY LUNA Note: Prescription received for home IV antibiotics from Dr. Grove. YOVANY LUNA called to pt's [facility] [employer] [employer] . They cannot staff development manager for IV antibiotics. Will need to find another [employer] OPERATOR. -Call to Cindy Conroy LPN with [facility]. If infusion is done through [facility], [facility] will check to see if they can do IV antibiotics. They will contact YOVANY Smith CM tomorrow Am. Radhames IYERN YOVANY ACM
--- NOTE | 2017-09-01 17:28 | CASEMGMT ---
RN CM Note. Referral faxed to [facility].Call to [facility] to notify and Call back for Sarah given for tomorrow. Radhames PEREIRA RN ACM
[2017-09-01] MEDS: Vancomycin IV 1,000 MG/200 ML BAG 200 MG IV (18:38)
[2017-09-01 19:01] LABS: Bedside Glucose 255 mg/dL (70-110)
--- NOTE | 2017-09-01 20:35 | PN_ITS ---
Patient Problems: Active and Suspected Problems Abdominal pain (Acute) History of right above knee amputation (Acute) Acute kidney injury (Acute) Osteomyelitis of left ankle (Suspected) Malnutrition (Acute) Vascular disease, peripheral (Suspected) Complicated UTI (urinary tract infection) (Acute) Constipation (Acute) Subjective: Patient seen and examined today. Currently awaiting approval for home antibiotics. Still complaining of diarrhea. - Physical Exam General: Alert, Oriented x3, Cooperative, No apparent distress, Well developed HEENT: Atraumatic, PERRLA, EOMI, Normocephalic Oral: Moist Mucosa Neck: Supple, No JVD, Trachea Midline, Thyroid Normal Size and Texture Lungs: Clear to auscultation, Normal air movement, No rhonchi, No wheeze, No rales Cardiovascular: Regular rate, Regular Rhythm, Normal S1, Normal S2, No murmurs, No Ectopic Activity, PMI Normal, No rub noted, No Gallop Abdomen: Bowel Sounds Present, Soft, Non Tender, Non-Distended, No hernias noted , - - Ileal conduit is present Extremities: No edema, Capillary Refill Less than 3 Seconds, - - Right leg above -knee amputation, left lateral ankle chronic ulceration Skin: - - Patient has stage II pressure ulcerations of his buttocks Musculoskeletal: No Tenderness to Palpation of Joints or Extremities Neurological: Cranial nerves II-XII grossly intact, - - Patient is paraplegic Psych/Mental Status: Normal Affect, Appropriate, Alert and oriented to time, place, person, mood and affect Vital Signs Temp Pulse Resp BP Pulse Ox 98.2 F 86 18 155/78 H 97 09/01/17 18:45 09/01/17 18:45 09/01/17 18:45 09/01/17 18:45 09/01/17 18:45 Oxygen Delivery Method Room Air Weight: 103.3 kg Body Mass Index (BMI) 32.1 Intake and Output for Last 24 Hours 08/30/17 08/31/17 09/01/17 23:59 23:59 23:59 Intake Total 2761 / 2761 2748 / 2748 1503 / 1503 Output Total 1924 / 1924 1974 / 1974 1675 / 1675 Balance 836 / 836 773 / 773 -172 / -172 Microbiology Past 72 Hours 08/29/17 15:27 Gram Stain - Final Biopsy - Other Wound Culture - Preliminary No growth-Final to follow Anaerobic Culture - Preliminary No growth in 48 hours. 08/28/17 09:05 Gram Stain - Final Wound - Aerobic & Anaerobic Swabs Wound Culture - Final Corynebacterium striatum Meth. resistant Staph. aureus Anaerobic Culture - Final No anaerobic bacteria isolated. 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 (Acute) Complicated UTI (urinary tract infection) (Acute) Constipation (Acute) Pressure ulcer of perianal region (Resolved) Pressure ulcer of buttock (Resolved) UTI (urinary tract infection) (Acute) #1 septic shock from left distal fibula osteomyelitis-bone biopsy was negative for bacterial growth but suspect MRSA and diphtheroids #2 acute kidney injury secondary to ATN-resolved #3 Hypomagnesemia-magnesium replacement was given #4 type 2 diabetes #5 paraplegia #6 diarrhea-etiology unclear, I have decided to place the patient on Bentyl and attempt to slow down his bowel movements #7 hypothyroidism #8 hyperlipidemia #9 pressure injury left lateral malleolus Code Visit Inpatient E&M: 91558 Subs Hosp L2
[2017-09-01] MEDS: Dicyclomine 10 MG Capsule 20 MG PO (22:55)
[2017-09-01] MEDS: Pravastatin 40 MG Tablet PO (22:55)
[2017-09-01] MEDS: Insulin Lispro 100 UNIT/ML INSULN.PEN SC (22:55)
[2017-09-01 23:31] LABS: Bedside Glucose 247 mg/dL (70-110)
[2017-09-02] VITALS (7 sets, daily range): BP systolic 109–151; BP diastolic 66–74; PULSE 90–93; RESP 16–18; TEMP 36.8–36.9; O2SAT 98–99
[2017-09-02] MEDS: Levothyroxine 25 MCG TABLET PO (05:54)
[2017-09-02] MEDS: Insulin Lispro 100 UNIT/ML INSULN.PEN SC ×4 (05:54→22:00)
[2017-09-02] MEDS: Dicyclomine 10 MG Capsule 20 MG PO ×3 (05:54→16:40)
[2017-09-02 06:01] LABS: Magnesium 1.3 mg/dL (1.6-2.6)
[2017-09-02 07:26] LABS: Bedside Glucose 161 mg/dL (70-110)
[2017-09-02] MEDS: Furosemide 20 MG Tablet PO (08:35)
[2017-09-02] MEDS: Loperamide 2 MG Capsule PO ×2 (08:36→22:01)
[2017-09-02] MEDS: Enoxaparin 40 MG/0.4 ML Syringe SC (08:36)
[2017-09-02] MEDS: Pantoprazole Sodium 40 MG Tablet PO (08:37)
[2017-09-02] MEDS: Glimepiride 4 MG Tablet PO (08:38)
[2017-09-02] MEDS: Metoprolol Tartrate 25 MG Tablet PO ×2 (08:40→22:01)
[2017-09-02] MEDS: Calcium Carbonate 500 MG Tablet PO ×2 (08:44→17:01)
[2017-09-02] MEDS: Menthol/Lanolin/Calamine/Znox 113 GM Tube 1 APPLIC TOPICAL ×2 (09:13→22:00)
[2017-09-02 11:41] LABS: Bedside Glucose 178 mg/dL (70-110)
--- NOTE | 2017-09-02 12:41 | PCM.PN.REN ---
Patient Problems: Active and Suspected Problems Abdominal pain (Acute) History of right above knee amputation (Acute) Acute kidney injury (Acute) Osteomyelitis of left ankle (Suspected) Malnutrition (Acute) Vascular disease, peripheral (Suspected) Complicated UTI (urinary tract infection) (Acute) Constipation (Acute) Subjective: no new complaints diarrhea somewhat better - Physical Exam General: Alert, Oriented x3, Cooperative HEENT: Atraumatic, PERRLA, EOMI, Normocephalic Neck: Supple, No JVD, Negative Carotid Bruits Lungs: Clear to auscultation, Normal air movement Cardiovascular: Regular rate, No murmurs Abdomen: Bowel Sounds Present, Soft, Non Tender Extremities: No edema, Capillary Refill Less than 3 Seconds Skin: No rashes, No breakdown Musculoskeletal: No Tenderness to Palpation of Joints or Extremities Neurological: Cranial nerves II-XII grossly intact Psych/Mental Status: Normal Affect, Appropriate Vital Signs Temp Pulse Resp BP Pulse Ox 98.5 F 90 16 148/74 H 98 09/02/17 08:47 09/02/17 08:56 09/02/17 08:47 09/02/17 08:47 09/02/17 08:47 Oxygen Delivery Method Room Air Weight: 101.5 kg Body Mass Index (BMI) 32.1 Intake and Output for Last 24 Hours 08/31/17 09/01/17 09/02/17 23:59 23:59 23:59 Intake Total 2748 / 2748 1503 / 1503 1259 / 1259 Output Total 1974 / 1974 1675 / 1675 800 / 800 Balance 773 / 773 -172 / -172 459 / 459 Microbiology Past 72 Hours 08/29/17 15:27 Gram Stain - Final Biopsy - Other Wound Culture - Final No growth aerobically. Anaerobic Culture - Preliminary No growth in 48 hours. 08/28/17 09:05 Gram Stain - Final Wound - Aerobic & Anaerobic Swabs Wound Culture - Final Corynebacterium striatum Meth. resistant Staph. aureus Anaerobic Culture - Final No anaerobic bacteria isolated. Laboratory Tests Past 24 Hrs 09/02/17 09/02/17 05:40 11:50 Magnesium 1.3 L Vancomycin Trough Pending POC Glucose 09/02/17 09/02/17 09/01/17 11:16 05:53 22:43 POC Glucose 178 H 161 H 247 H 09/01/17 09/01/17 18:41 13:30 POC Glucose 255 H 285 H Medical Necessity - Tobacco Use Smoking Status: Never smoker Assessment/Plan All Active Problems Type 2 diabetes mellitus with diabetic polyneuropathy (Acute) Abdominal pain (Acute) History of right above knee amputation (Acute) Acute kidney injury (Acute) Malnutrition (Acute) Septic shock (Acute) Pressure ulcer of sacral region, stage 3 (Acute) Scrotal ulcer (Acute) 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 non oliguric. Resolving. URSZULA is secondary to ischemic ATN. CT showed chronic left hydronephrosis with left atrophic kidney (old finding) Cr is improving. 2- hypokalemia: 2/2 GI loss. better. continue oral supplements 3- hypomagnesemia: Also likely due to GI oss. Mg 1.2. better 4- L ankle osteomyelitis. Better. On Abx as per primary/ID services. Podiatry following. 5- Diarrhea . C. difficile is negative. 6- scrotal edema. he has significant scrotal edema. most likely dependent edema. continue lasix for now. repeat BMP tomorrow. Increase K supplements if needed .
[2017-09-02 13:04] LABS: Vancomycin, Trough Level 16.5 ug/mL (5.0-15.0)
[2017-09-02] MEDS: Collagenase 30gm Tube 1 APPLIC TOPICAL (13:24)
[2017-09-02] MEDS: Vancomycin IV 1,000 MG/200 ML BAG 200 MG IV (13:25)
--- NOTE | 2017-09-02 13:29 | CASEMGMT ---
YOVANY LUNA discussed discharge plan with the patient. Patient is adamant that his wants to go home with [facility] and IV ATB and refuses to go to SNF. Patient states that he will have a friend staying with him / while he is receiving IV ATBs and wound care and that his friend is teachable. Patient states that his friend will not be here from [place] till tomorrow and does not feel comfortable discharging before his friend arrives. YOVANY LUNA discussed with patient that [facility] is not able to continue services due to IV ATB, patient agreeable to [facility] and they are willing to accept the patient. [facility] updated regarding IV ATB and provided [facility] with patient's cell phone number. Plan is for patient to safely discharge home with [facility] tomorrow for a smooth transition of care. CM will continue to follow this patient and plan for a safe discharge.
--- NOTE | 2017-09-02 13:38 | NURSING ---
In to change patient's urostomy appliance. patient had brought his supplies in from home since he prefers to use the [employer] appliances. there was a large amount of urine noted in the appliance and it was actually beginning to leak. Pt states that he changes his appliance once a week. patient has some purple discoloration noted to the peristomal skin. this is most likely from prolonged periods of moisture. recommended that patient change appliance every 4-5 days rather than just once a week. patient states understanding. cleansed peristomal skin with soap and water. pat dry. applied patient new pre-cut [employer] 1 piece appliance. pt tolerated well. denies further needs at this time.
[2017-09-02 17:00] LABS: Bedside Glucose 279 mg/dL (70-110)
--- NOTE | 2017-09-02 19:51 | PN_ITS ---
Subjective: Patient was seen and examined today, he states his loose stools are improved, patient's magnesium was low again today at 1.3, replacement was given - Physical Exam General: Alert, Oriented x3, Cooperative, No apparent distress, Well developed HEENT: Atraumatic, PERRLA, EOMI, Normocephalic Oral: Moist Mucosa Neck: Supple, No JVD, No Nuchal Rigidity, Trachea Midline, Thyroid Normal Size and Texture Lungs: Clear to auscultation, Normal air movement, No rhonchi, No wheeze, No rales Cardiovascular: Regular rate, Regular Rhythm, Normal S1, Normal S2, No murmurs, No Ectopic Activity, PMI Normal, No rub noted, No Gallop Abdomen: Bowel Sounds Present, Soft, Non Tender, Non-Distended, No hernias noted Extremities: Edema - Severe penile and scrotal edema is noted, - - Right above- the-knee amputation is noted Skin: No rashes Neurological: Cranial nerves II-XII grossly intact, - - Paraplegia is noted Psych/Mental Status: Normal Affect, Appropriate, Alert and oriented to time, place, person, mood and affect Vital Signs Temp Pulse Resp BP Pulse Ox 98.3 F 90 18 109/66 99 09/02/17 14:37 09/02/17 14:37 09/02/17 14:37 09/02/17 14:37 09/02/17 14:37 Oxygen Delivery Method Room Air Weight: 101.5 kg Body Mass Index (BMI) 32.1 Intake and Output for Last 24 Hours 08/31/17 09/01/17 09/02/17 23:59 23:59 23:59 Intake Total 2748 / 2748 1503 / 1503 1759 / 1759 Output Total 1974 1675 / 1675 1845 / 1845 Balance 773 / 773 -172 / -172 -86 / -86 Microbiology Past 72 Hours 08/29/17 15:27 Gram Stain - Final Biopsy - Other Wound Culture - Final No growth aerobically. Anaerobic Culture - Preliminary No growth in 48 hours. 08/28/17 09:05 Gram Stain - Final Wound - Aerobic & Anaerobic Swabs Wound Culture - Final Corynebacterium striatum Meth. resistant Staph. aureus Anaerobic Culture - Final No anaerobic bacteria isolated. 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 (Acute) Complicated UTI (urinary tract infection) (Acute) Constipation (Acute) Pressure ulcer of perianal region (Resolved) Pressure ulcer of buttock (Resolved) UTI (urinary tract infection) (Acute) #1 septic shock from left distal fibula osteomyelitis-bone biopsy was negative for bacterial growth but suspect MRSA and diphtheroids continue present antibiotic coverage per ID #2 acute kidney injury secondary to ATN-resolved #3 Hypomagnesemia-magnesium replacement was given #4 type 2 diabetes #5 paraplegia #6 diarrhea-etiology unclear, continue Bentyl #7 hypothyroidism #8 hyperlipidemia #9 pressure injury left lateral malleolus- continue present care #10 scrotal and penile edema-Lasix will continue, I feel this is secondary to fluid administration during this hospitalization #11 stage IV pressure ulceration sacral area-currently stage 2- continue present wound care Code Visit Inpatient E&M: [id number] Subs Hosp L2
[2017-09-02] MEDS: Pravastatin 40 MG Tablet PO (22:01)
[2017-09-02 22:51] LABS: Bedside Glucose 192 mg/dL (70-110)
[2017-09-03 03:19] VITALS: BP 138/67; PULSE 91; RESP 16; TEMP 37; O2SAT 95
[2017-09-03] MEDS: Levothyroxine 25 MCG TABLET PO (06:15)
[2017-09-03] MEDS: Dicyclomine 10 MG Capsule 20 MG PO ×2 (06:15→12:00)
[2017-09-03] MEDS: 0.9% NaCl Peripheral Flush Adult/Peds IV (06:34)
[2017-09-03 07:08] LABS: Anion Gap 6 (5-15); BUN 22 mg/dL (7-18); BUN/Creat Ratio 23.8 RATIO (10-20); Calcium,Total 7.4 mg/dL (8.5-10.1); Chloride 112 mmol/L (98-107); Creatinine, Serum 0.93 mg/dL (0.70-1.30); EST Glomerular Filtration Rate 85 mL/min (>60); Est Glom Filt Rate - Afr Amer 103 mL/min (>60); Estimated Creatinine Clearance 73.04 ml/min; Glucose 112 mg/dL (74-106); Potassium 4.1 mmol/L (3.5-5.1); Sodium Level 142 mmol/L (136-145)
[2017-09-03 07:11] LABS: Bedside Glucose 122 mg/dL (70-110)
[2017-09-03] MEDS: Pantoprazole Sodium 40 MG Tablet PO (09:03)
[2017-09-03] MEDS: Loperamide 2 MG Capsule PO (09:04)
[2017-09-03] MEDS: Calcium Carbonate 500 MG Tablet PO (09:04)
[2017-09-03 09:05] VITALS: PULSE 83
[2017-09-03] MEDS: Enoxaparin 40 MG/0.4 ML Syringe SC (09:05)
[2017-09-03] MEDS: Metoprolol Tartrate 25 MG Tablet PO (09:05)
[2017-09-03] MEDS: Menthol/Lanolin/Calamine/Znox 113 GM Tube 1 APPLIC TOPICAL (09:06)
[2017-09-03] MEDS: Glimepiride 4 MG Tablet PO (09:07)
[2017-09-03 09:10] VITALS: PULSE 80
[2017-09-03] MEDS: Collagenase 30gm Tube 1 APPLIC TOPICAL (09:22)
--- NOTE | 2017-09-03 09:39 | NURSING ---
wound photo: left lateral malleolus
--- NOTE | 2017-09-03 09:40 | NURSING ---
wound photo: sacrum/francesco-anal
[2017-09-03] MEDS: Furosemide 20 MG Tablet PO (12:00)
[2017-09-03] MEDS: Insulin Lispro 100 UNIT/ML INSULN.PEN SC (12:01)
[2017-09-03 12:16] LABS: Bedside Glucose 164 mg/dL (70-110)
[2017-09-03] MEDS: Vancomycin IV 1,000 MG/200 ML BAG 200 MG IV (12:52)
--- NOTE | 2017-09-03 13:34 | PCM.PN.ID ---
Patient Problems: Active and Suspected Problems Abdominal pain (Acute) Acute kidney injury (Acute) Osteomyelitis of left ankle (Suspected) Malnutrition (Acute) Vascular disease, peripheral (Suspected) Complicated UTI (urinary tract infection) (Acute) Constipation (Acute) Subjective: Feeling better, diarrhea improved, no fever - Physical Exam General: Alert, Cooperative, No apparent distress Lungs: Clear to auscultation, Normal air movement Cardiovascular: Regular rate, Regular Rhythm Abdomen: Soft, Non Tender, Non-Distended Skin: Ulcer/ Wound - L ankle wrapped Vital Signs Temp Pulse Resp BP Pulse Ox 98.6 F 80 16 138/67 H 95 09/03/17 03:19 09/03/17 09:10 09/03/17 03:19 09/03/17 03:19 09/03/17 03:19 Oxygen Delivery Method Room Air Weight: 104 kg Body Mass Index (BMI) 32.1 Intake and Output for Last 24 Hours 09/01/17 09/02/17 09/03/17 23:59 23:59 23:59 Intake Total 1503 / 1503 1759 / 1759 1257 / 1257 Output Total 1675 / 1675 1845 / 1845 625 / 625 Balance -172 / -172 -86 / -86 632 / 632 Microbiology Past 72 Hours 08/29/17 15:27 Gram Stain - Final Biopsy - Other Wound Culture - Final No growth aerobically. Anaerobic Culture - Preliminary No growth in 48 hours. 08/28/17 09:05 Gram Stain - Final Wound - Aerobic & Anaerobic Swabs Wound Culture - Final Corynebacterium striatum Meth. resistant Staph. aureus Anaerobic Culture - Final No anaerobic bacteria isolated. Laboratory Tests Past 24 Hrs 09/03/17 06:20 Sodium 142 Potassium 4.1 Chloride 112 H Carbon Dioxide 24.0 Anion Gap 6 BUN 22 H Creatinine 0.93 Estim Creat Clear Calc 73.04 Est GFR (MDRD) Af Amer 103 Est GFR (MDRD) Non-Af 85 BUN/Creatinine Ratio 23.8 H Glucose 112 H Calcium 7.4 L POC Glucose 09/03/17 09/03/17 09/02/17 11:55 06:46 21:58 POC Glucose 164 H 122 H 192 H 09/02/17 16:35 POC Glucose 279 H Medical Necessity - Tobacco Use Smoking Status: Never smoker Route of nutrition/ use of supplements: [] Nutritional Intake: [] IV Site: [] Lozano Catheter: [] - Assessment/Plan Antibiotics: [] Assessment/Plan: [] Active and Suspected Problems Abdominal pain (Acute) History of right above knee amputation (Acute) Acute kidney injury (Acute) Complicated UTI (urinary tract infection) (Acute) Constipation (Acute) septic shock with L ankle osteo - no osteo of pelvis seen on CT on admission. Sacral cx with ecoli, kpneumo, lactobacillus, and providencia. Overall much improved. Dr. Berry following, bone bx done 08/29. Ankle mrsa pcr (+) and wound cx now with staph and diphtheroids. Plan on at least 6 week course of iv vanc, stop date 10/09/17. Weekly bmp, cbc, esr, vanc trough. chronic diarrhea - enteric pathogen panel neg, cdiff neg. No improvement with 5 days of flagyl. Improving now that abx have been weaned. Would recommend GI referral outpt if diarrhea does not completely resolve. Will follow. Rx for labs and abx written.
--- NOTE | 2017-09-03 14:05 | PCM.DC ---
- Discharge Diagnoses Current Active Problems: Current Active and Chronic Problems Abdominal pain (Acute) Acute kidney injury (Acute) Ulcer of left lower extremity with 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) Malnutrition (Acute) Type 2 diabetes mellitus with diabetic polyneuropathy (Chronic) Complicated UTI (urinary tract infection) (Acute) Constipation (Acute) You will use the following diet at home:: Calorie/Carbohydrate Controlled (specify 1200, 1400, etc) - 1800 nesha Your food should be the consistency of: Regular Your liquids should be the consistency of: Regular/Thin Discharge Activity: Return to Normal Activity Weight Bearing Status: No weight bearing Keep extremity elevated above heart level: Left Leg Call your doctor if your incision/area has: Continuous Slow Oozing, Sudden Increased Bleeding, Increased Pain/ Swelling, Increased Redness, Foul Smelling Discharge, Swelling at the incision site Call your doctor if you observe: Fever of 101 or Higher Cleanse incision/area with: - - Change dressing the left lateral ankle with Santyl applied in nickel thickness daily cover with gauze and padded well. Additional Instructions: apply Calmoseptine twice a day to buttocks, Santyl daily to left lateral ankle-small amount, offload left ankle Allergies/Adverse Reactions: Allergies codeine Adverse Reaction (Verified 08/21/17 11:39) heavy sweats prednisone Adverse Reaction (Verified 08/21/17 11:39) headache, heavy sweats Medications to take at Discharge Glimepiride [Amaryl] 4 mg PO DAILY 01/02/15 Levothyroxine [Synthroid] 25 mcg PO DAILY 01/02/15 Metoprolol Tartrate [Lopressor (beta jose)] 25 mg PO BID 01/02/15 omeprazole 40 mg capsule,delayed release 40 mg PO QDAY 05/28/17 pravastatin 10 mg tablet 40 mg PO QHS tab 05/28/17 zinc 50 mg tablet 50 mg PO DAILY 05/28/17 Vancomycin IV [Vancomycin] 1,000 mg IV Q24H 38 Days #38 bag 09/01/17 Acetaminophen [Tylenol Tablet] 650 mg PO Q6H PRN PRN tablet 09/03/17 Calcium Carbonate/Vitamin D3 [Os-Nesha 500+D3 Caplet] 1 each PO BID #1 tablet 09/03/17 Collagenase [Santyl] 1 applic TOPICAL DAILY tube 09/03/17 Dicyclomine HCl [Bentyl] 20 mg PO UD #180 cap 09/03/17 Diphenoxylate HCl/Atropine [Lomotil 2.5-0.025 mg Tablet] 1 - 2 each PO Q6H PRN PRN #30 tablet 09/03/17 Furosemide [Lasix] 40 mg PO DAILY #60 tab 09/03/17 Lactobacillus Acidophilus [Acidophilus] 1 tablet PO BID tablet 09/03/17 Magnesium Oxide [Mag-Ox 400] 400 mg PO DAILY #1 tablet 09/03/17 Menthol/Lanolin/Calamine/Znox [Calmoseptine Ointment] 1 applic TOPICAL BID tube 09/03/17 Potassium Chloride [K-Dur] 20 meq PO DAILYCM #30 tab 09/03/17 The following prescriptions were given: Diphenoxylate HCl/Atropine [Lomotil 2.5-0.025 mg Tablet] 1 - 2 each PO Q6H PRN PRN #30 tablet PRN Reason: Diarrhea Dicyclomine HCl [Bentyl] 20 mg PO UD #180 cap Furosemide [Lasix] 40 mg PO DAILY #60 tab Magnesium Oxide [Mag-Ox 400] 400 mg PO DAILY #1 tablet Potassium Chloride [K-Dur] 20 meq PO DAILYCM #30 tab Vancomycin IV [Vancomycin] 1,000 mg IV Q24H 38 Days #38 bag Calcium Carbonate/Vitamin D3 [Os-Nesha 500+D3 Caplet] 1 each PO BID #1 tablet Primary Care Physician: Angelina Caceres DO [Primary Care Provider] - Please follow up with your Primary Care Physician in: in 2 weeks Test Results: Test results from this visit will be discussed in further detail at your follow-up appointment, if applicable. Please Follow Up With: Dr. Bashir or Kristi When: [facility]
--- NOTE | 2017-09-03 14:14 | DCINST_ITS ---
- Discharge Diagnoses Current Active Problems: Current Active and Chronic Problems Abdominal pain (Acute) Acute kidney injury (Acute) Ulcer of left lower extremity with 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) Malnutrition (Acute) Type 2 diabetes mellitus with diabetic polyneuropathy (Chronic) Complicated UTI (urinary tract infection) (Acute) Constipation (Acute) You will use the following diet at home:: Calorie/Carbohydrate Controlled ( specify 1200, 1400, etc) - 1800 nesha Your food should be the consistency of: Regular Your liquids should be the consistency of: Regular/Thin Discharge Activity: Return to Normal Activity Weight Bearing Status: No weight bearing Keep extremity elevated above heart level: Left Leg Call your doctor if your incision/area has: Continuous Slow Oozing, Sudden Increased Bleeding, Increased Pain/ Swelling, Increased Redness, Foul Smelling Discharge, Swelling at the incision site Call your doctor if you observe: Fever of 101 or Higher Cleanse incision/area with: - - Change dressing the left lateral ankle with Santyl applied in nickel thickness daily cover with gauze and padded well. Additional Instructions: apply Calmoseptine twice a day to buttocks, Santyl daily to left lateral ankle-small amount, offload left ankle Allergies/Adverse Reactions: Allergies codeine Adverse Reaction (Verified 08/21/17 11:39) heavy sweats prednisone Adverse Reaction (Verified 08/21/17 11:39) headache, heavy sweats Medications to take at Discharge Glimepiride [Amaryl] 4 mg PO DAILY 01/02/15 Levothyroxine [Synthroid] 25 mcg PO DAILY 01/02/15 Metoprolol Tartrate [Lopressor (beta jose)] 25 mg PO BID 01/02/15 omeprazole 40 mg capsule,delayed release 40 mg PO QDAY 05/28/17 pravastatin 10 mg tablet 40 mg PO QHS tab 05/28/17 zinc 50 mg tablet 50 mg PO DAILY 05/28/17 Vancomycin IV [Vancomycin] 1,000 mg IV Q24H 38 Days #38 bag 09/01/17 Acetaminophen [Tylenol Tablet] 650 mg PO Q6H PRN PRN tablet 09/03/17 Calcium Carbonate/Vitamin D3 [Os-Nesha 500+D3 Caplet] 1 each PO BID #1 tablet Collagenase [Santyl] 1 applic TOPICAL DAILY tube 09/03/17 Dicyclomine HCl [Bentyl] 20 mg PO UD #180 cap 09/03/17 Diphenoxylate HCl/Atropine [Lomotil 2.5-0.025 mg Tablet] 1 - 2 each PO Q6H PRN PRN #30 tablet 09/03/17 Furosemide [Lasix] 40 mg PO DAILY #60 tab 09/03/17 Lactobacillus Acidophilus [Acidophilus] 1 tablet PO BID tablet 09/03/17 Magnesium Oxide [Mag-Ox 400] 400 mg PO DAILY #1 tablet 09/03/17 Menthol/Lanolin/Calamine/Znox [Calmoseptine Ointment] 1 applic TOPICAL BID tube 09/03/17 Potassium Chloride [K-Dur] 20 meq PO DAILYCM #30 tab 09/03/17 The following prescriptions were given: Diphenoxylate HCl/Atropine [Lomotil 2.5-0.025 mg Tablet] 1 - 2 each PO Q6H PRN PRN #30 tablet PRN Reason: Diarrhea Dicyclomine HCl [Bentyl] 20 mg PO UD #180 cap Furosemide [Lasix] 40 mg PO DAILY #60 tab Magnesium Oxide [Mag-Ox 400] 400 mg PO DAILY #1 tablet Potassium Chloride [K-Dur] 20 meq PO DAILYCM #30 tab Vancomycin IV [Vancomycin] 1,000 mg IV Q24H 38 Days #38 bag Calcium Carbonate/Vitamin D3 [Os-Nesha 500+D3 Caplet] 1 each PO BID #1 tablet Primary Care Physician: Angelina Caceres DO [Primary Care Provider] - Please follow up with your Primary Care Physician in: in 2 weeks Test Results: Test results from this visit will be discussed in further detail at your follow- up appointment, if applicable. Please Follow Up With: Dr. Bashir or Kristi When: [facility]
[2017-09-03 14:47] LABS: Endomysial Antibody IgA Negative (Negative)
[2017-09-03 14:48] VITALS: BP 141/66; PULSE 85; RESP 17; TEMP 36.9; O2SAT 99
--- NOTE | 2017-09-03 19:17 | PCM.HOSP.N ---
Hospitalist Note I signed a prescription today for a semi-electric bed with half rails as well as an alternating pressure pad for the patient for home use. Patient requires these medical devices to accomplish pressure-relief and offloading for pressure wounds. This is necessary due to the patient's paraplegia and left ankle ulceration as well as his pressure ulcers of his sacral region. Patient is unable to adjust his position in bed without this equipment and his left ankle ulceration and sacral ulceration will not heal appropriately without these aids. Patient has long-term paraplegia.
--- NOTE | 2017-09-04 07:34 | CASEMGMT ---
YOVANY LUNA NOTE: Spoke with pt 09/03/17 prior to discharge re: hospital bed and pressure relieving mattress. Pt states is not sure if he wants either yet and that he will decide once he returns home. Pt stated he will contact [facility] if he decides he wants them. Scripts and clinical information faxed to [facility]. Maryanne PEREIRA RN CM
--- NOTE | 2017-09-04 09:03 | PCM.DC.SUM ---
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- #12 cystitis was ruled out - Secondary Discharge Diagnosis Chronic Problems Type 2 diabetes mellitus with diabetic polyneuropathy (Chronic) Ulcer of left lower extremity with 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) Type 2 diabetes mellitus with diabetic polyneuropathy (Chronic) Hypercholesterolemia (Chronic) Paraplegia (Chronic) Hyperlipemia (Chronic) Hypertension (Chronic) History of urostomy (Chronic) Kidney failure (Chronic) 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) Hypothyroidism (Chronic) Diabetes mellitus (Chronic) Hospital Course and Treatment Consultations 08/21/17 15:22 Consult: Onc/Wound/make up artist Routine Comment: Pressure ulcer on coccyx. Operations: - - Bone biopsy left distal fibula, debridement of pressure ulceration left distal fibula Procedures: 2-D Echocardiogram Summary of Care Provided: The patient is a 71 year old M who was seen in the emergency room at [facility] with a chief complaint of abdominal pain, CT of the abdomen and pelvis was obtained which showed the patient have constipation, urinalysis was obtained which showed 25-50 WBCs and +2 bacteria, he was felt to have a urinary tract infection, white blood cell count was normal at 9.7, patient was noted to be hypotensive and IV fluid boluses were administered. Patient was initially admitted to [facility] but his lactic acid was found to be elevated and he was hypotensive and he was felt to be in septic shock and transferred to the intensive care unit, a central line was placed by surgery and vasopressors were instituted to raise patient's blood pressure. Cultures were obtained, patient had a large amount of stool output, he was seen in consultation by cardiology for tachycardia and was seen by infectious diseases and nephrology. In addition, patient was seen by podiatry and cultures were obtained on the patient's left lateral ankle area where a pressure ulceration was located and finally patient was taken to surgery for bone biopsy. Cultures of the left ankle grew out diphtheroids and MRSA, antibiotics were adjusted by infectious diseases. Patient was transferred to a medical floor, he declined to be placed in a [facility] facility for care and instead opted to go home with home nursing. Patient's urine culture grew out no bacteria, it was felt that the patient went into septic shock from left ankle osteomyelitis. However, patient's bone biopsy did not grow out any organisms. On 09/03/17, patient was seen and examined and felt to be in stable condition for discharge home Discharge Activity: Return to Normal Activity Weight Bearing Status: No weight bearing Keep extremity elevated above heart level: Left Leg Call your doctor if your incision/area has: Continuous Slow Oozing, Sudden Increased Bleeding, Increased Pain/ Swelling, Increased Redness, Foul Smelling Discharge, Swelling at the incision site Call your doctor if you observe: Fever of 101 or Higher Cleanse incision/area with: - - Change dressing the left lateral ankle with Santyl applied in nickel thickness daily cover with gauze and padded well. Home Medications: Medications to take at Discharge Glimepiride [Amaryl] 4 mg PO DAILY 01/02/15 Levothyroxine [Synthroid] 25 mcg PO DAILY 01/02/15 Metoprolol Tartrate [Lopressor (beta jose)] 25 mg PO BID 01/02/15 omeprazole 40 mg capsule,delayed release 40 mg PO QDAY 05/28/17 pravastatin 10 mg tablet 40 mg PO QHS tab 05/28/17 zinc 50 mg tablet 50 mg PO DAILY 05/28/17 Vancomycin IV [Vancomycin] 1,000 mg IV Q24H 38 Days #38 bag 09/01/17 Acetaminophen [Tylenol Tablet] 650 mg PO Q6H PRN PRN tablet 09/03/17 Calcium Carbonate/Vitamin D3 [Os-David 500+D3 Caplet] 1 each PO BID #1 tablet 09/03/17 Collagenase [Santyl] 1 applic TOPICAL DAILY tube 09/03/17 Dicyclomine HCl [Bentyl] 20 mg PO UD #180 cap 09/03/17 Diphenoxylate HCl/Atropine [Lomotil 2.5-0.025 mg Tablet] 1 - 2 each PO Q6H PRN PRN #30 tablet 09/03/17 Furosemide [Lasix] 40 mg PO DAILY #60 tab 09/03/17 Lactobacillus Acidophilus [Acidophilus] 1 tablet PO BID tablet 09/03/17 Magnesium Oxide [Mag-Ox 400] 400 mg PO DAILY #1 tablet 09/03/17 Menthol/Lanolin/Calamine/Znox [Calmoseptine Ointment] 1 applic TOPICAL BID tube 09/03/17 Potassium Chloride [K-Dur] 20 meq PO DAILYCM #30 tab 09/03/17 Following Prescrptions Were Given to Patient: Diphenoxylate HCl/Atropine [Lomotil 2.5-0.025 mg Tablet] 1 - 2 each PO Q6H PRN PRN #30 tablet PRN Reason: Diarrhea Dicyclomine HCl [Bentyl] 20 mg PO UD #180 cap Furosemide [Lasix] 40 mg PO DAILY #60 tab Magnesium Oxide [Mag-Ox 400] 400 mg PO DAILY #1 tablet Potassium Chloride [K-Dur] 20 meq PO DAILYCM #30 tab Vancomycin IV [Vancomycin] 1,000 mg IV Q24H 38 Days #38 bag Calcium Carbonate/Vitamin D3 [Os-David 500+D3 Caplet] 1 each PO BID #1 tablet Primary Care Physician: Angelina Caceres DO [Primary Care Provider] - Please follow up with your Primary Care Physician in: in 2 weeks Please Follow Up With: Dr. Bashir or Kristi When: [facility] Additional Instructions: Obtain offloading donut pillow for left lower extremity to reduce pressure to left lateral ankle ulcer with fat layer exposed. This may be obtained from [employer]. Disposition: Home with Home Health Minutes spent on discharge:: 35 Patient Condition:: Stable Medical Necessity - Tobacco Use Smoking Status: Never smoker Meaningful Use Info Meaningful Use Diagnoses (Choose all that apply): None applicable Code Visit Inpatient E&M: 33540 Disch Hosp
--- NOTE | 2017-09-04 09:31 | DS.PCM_ITS ---
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- #12 cystitis was ruled out - Secondary Discharge Diagnosis Chronic Problems Type 2 diabetes mellitus with diabetic polyneuropathy (Chronic) Ulcer of left lower extremity with 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) Type 2 diabetes mellitus with diabetic polyneuropathy (Chronic) Hypercholesterolemia (Chronic) Paraplegia (Chronic) Hyperlipemia (Chronic) Hypertension (Chronic) History of urostomy (Chronic) Kidney failure (Chronic) 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) Hypothyroidism (Chronic) Diabetes mellitus (Chronic) Hospital Course and Treatment Consultations 08/21/17 15:22 Consult: Onc/Wound/outreach associate Routine Comment: Pressure ulcer on coccyx. Operations: - - Bone biopsy left distal fibula, debridement of pressure ulceration left distal fibula Procedures: 2-D Echocardiogram Summary of Care Provided: The patient is a 71 year old M who was seen in the emergency room at [facility] with a chief complaint of abdominal pain, CT of the abdomen and pelvis was obtained which showed the patient have constipation, urinalysis was obtained which showed 25-50 WBCs and +2 bacteria, he was felt to have a urinary tract infection, white blood cell count was normal at 9.7, patient was noted to be hypotensive and IV fluid boluses were administered. Patient was initially admitted to [facility] but his lactic acid was found to be elevated and he was hypotensive and he was felt to be in septic shock and transferred to the intensive care unit, a central line was placed by surgery and vasopressors were instituted to raise patient's blood pressure. Cultures were obtained, patient had a large amount of stool output, he was seen in consultation by cardiology for tachycardia and was seen by infectious diseases and nephrology. In addition , patient was seen by podiatry and cultures were obtained on the patient's left lateral ankle area where a pressure ulceration was located and finally patient was taken to surgery for bone biopsy. Cultures of the left ankle grew out diphtheroids and MRSA, antibiotics were adjusted by infectious diseases. Patient was transferred to a medical floor, he declined to be placed in a [facility] facility for care and instead opted to go home with home nursing. Patient's urine culture grew out no bacteria, it was felt that the patient went into septic shock from left ankle osteomyelitis. However, patient' s bone biopsy did not grow out any organisms. On 09/03/17, patient was seen and examined and felt to be in stable condition for discharge home Discharge Activity: Return to Normal Activity Weight Bearing Status: No weight bearing Keep extremity elevated above heart level: Left Leg Call your doctor if your incision/area has: Continuous Slow Oozing, Sudden Increased Bleeding, Increased Pain/ Swelling, Increased Redness, Foul Smelling Discharge, Swelling at the incision site Call your doctor if you observe: Fever of 101 or Higher Cleanse incision/area with: - - Change dressing the left lateral ankle with Santyl applied in nickel thickness daily cover with gauze and padded well. Home Medications: Medications to take at Discharge Glimepiride [Amaryl] 4 mg PO DAILY 01/02/15 Levothyroxine [Synthroid] 25 mcg PO DAILY 01/02/15 Metoprolol Tartrate [Lopressor (beta jose)] 25 mg PO BID 01/02/15 omeprazole 40 mg capsule,delayed release 40 mg PO QDAY 05/28/17 pravastatin 10 mg tablet 40 mg PO QHS tab 05/28/17 zinc 50 mg tablet 50 mg PO DAILY 05/28/17 Vancomycin IV [Vancomycin] 1,000 mg IV Q24H 38 Days #38 bag 09/01/17 Acetaminophen [Tylenol Tablet] 650 mg PO Q6H PRN PRN tablet 09/03/17 Calcium Carbonate/Vitamin D3 [Os-David 500+D3 Caplet] 1 each PO BID #1 tablet Collagenase [Santyl] 1 applic TOPICAL DAILY tube 09/03/17 Dicyclomine HCl [Bentyl] 20 mg PO UD #180 cap 09/03/17 Diphenoxylate HCl/Atropine [Lomotil 2.5-0.025 mg Tablet] 1 - 2 each PO Q6H PRN PRN #30 tablet 09/03/17 Furosemide [Lasix] 40 mg PO DAILY #60 tab 09/03/17 Lactobacillus Acidophilus [Acidophilus] 1 tablet PO BID tablet 09/03/17 Magnesium Oxide [Mag-Ox 400] 400 mg PO DAILY #1 tablet 09/03/17 Menthol/Lanolin/Calamine/Znox [Calmoseptine Ointment] 1 applic TOPICAL BID tube 09/03/17 Potassium Chloride [K-Dur] 20 meq PO DAILYCM #30 tab 09/03/17 Following Prescrptions Were Given to Patient: Diphenoxylate HCl/Atropine [Lomotil 2.5-0.025 mg Tablet] 1 - 2 each PO Q6H PRN PRN #30 tablet PRN Reason: Diarrhea Dicyclomine HCl [Bentyl] 20 mg PO UD #180 cap Furosemide [Lasix] 40 mg PO DAILY #60 tab Magnesium Oxide [Mag-Ox 400] 400 mg PO DAILY #1 tablet Potassium Chloride [K-Dur] 20 meq PO DAILYCM #30 tab Vancomycin IV [Vancomycin] 1,000 mg IV Q24H 38 Days #38 bag Calcium Carbonate/Vitamin D3 [Os-David 500+D3 Caplet] 1 each PO BID #1 tablet Primary Care Physician: Angelina Caceres DO [Primary Care Provider] - Please follow up with your Primary Care Physician in: in 2 weeks Please Follow Up With: Dr. Bashir or Kristi When: [facility] Additional Instructions: Obtain offloading donut pillow for left lower extremity to reduce pressure to left lateral ankle ulcer with fat layer exposed. This may be obtained from [employer]. Disposition: Home with Home Health Minutes spent on discharge:: 35 Patient Condition:: Stable Medical Necessity - Tobacco Use Smoking Status: Never smoker Meaningful Use Info Meaningful Use Diagnoses (Choose all that apply): None applicable Code Visit Inpatient E&M: 02569 Disch Hosp
--- NOTE | 2017-09-04 15:48 | CASEMGMT ---
YOVANY LUNA Discharge Follow-up Phone Call: SUMAYA: 13 Strata: 4 Call Date: 09/04/17 Discharge Date: 09/03/17 Time of Call: 1545 Duration: 3 minutes Admitting Diagnosis: Cystitis and constipation YOVANY LUNA completed follow-up phone call after recent hospitalization. Patient states that he is doing fine. Patient states that home health care is at his home currently and IV antibiotics were delivered without any problems. Patient states that he had no further questions or concerns regarding discharge instructions. Patient aware of follow-up appts to be scheduled with PCP and wound center.
--- NOTE | 2017-09-10 08:28 | LEAS ---
Arterial Study - Arterial Study Arterial Study: Date: 08/28/2017. Interpreting physician Dr. Heredia History patient with nonhealing ulcer with history of right leg amputation. He is paraplegic. Interpretation: Right lower extremity not evaluated with a amputation on this leg. Next Left lower extremity with waveform noted from the thigh through the calf down to the ankle flattened at the digits. Duplex shows monophasic flow of both vessels at the ankle. The PVR is diminished waveform or flow noted at the low thigh with with segmental pressure 0.75 decreased 0.41 at the calf PT 0.4 DP 0.32 and digit 0.24. Impression: 1. Patient with a history of right leg amputation. 2. 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
== END 2017-09-03 16:00 | disposition home or self-care (01) | DRG 853 ==
LOC: ED 12:12 → MS2 13:51 → ICU 18:52 → MS3 08-25 10:35
PROVIDERS: Anesthesiology; Family Medicine; Internal Medicine; Internal Medicine Critical Care Medicine; Internal Medicine Infectious Disease; Internal Medicine Nephrology; Podiatrist; Student in an Organized Health Care Education/Training Program; Surgery; Admitting Provider Hospitalist; Emergency Provider Emergency Medicine; Family Provider Family Medicine; PCP Family Medicine; Visit Provider Internal Medicine
PROC: 0QBK0ZX Excision of Left Fibula, Open Approach, Diagnostic (ICD-10-PCS; principal; 2017-08-29 14:00)
DX: A41.9 Sepsis, unspecified organism (principal); L89.154 Pressure ulcer of sacral region, stage 4; L89.524 Pressure ulcer of left ankle, stage 4; R65.21 Severe sepsis with septic shock; N17.9 Acute kidney failure, unspecified; M86.8X7 Other osteomyelitis, ankle and foot; G82.20 Paraplegia, unspecified; E87.3 Alkalosis; I47.1 Supraventricular tachycardia; N13.30 Unspecified hydronephrosis; B95.8 Unspecified staphylococcus as the cause of diseases classified elsewhere; B96.89 Other specified bacterial agents as the cause of diseases classified elsewhere; E83.42 Hypomagnesemia; E11.40 Type 2 diabetes mellitus with diabetic neuropathy, unspecified; R19.7 Diarrhea, unspecified; E78.5 Hyperlipidemia, unspecified; E03.9 Hypothyroidism, unspecified; N50.89 Other specified disorders of the male genital organs; N48.89 Other specified disorders of penis; L89.622 Pressure ulcer of left heel, stage 2; L89.892 Pressure ulcer of other site, stage 2; B96.20 Unspecified Escherichia coli [E. coli] as the cause of diseases classified elsewhere; A49.8 Other bacterial infections of unspecified site; B99.8 Other infectious disease; R05 Cough; I73.9 Peripheral vascular disease, unspecified; R19.5 Other fecal abnormalities; E87.6 Hypokalemia; D64.9 Anemia, unspecified; E55.9 Vitamin D deficiency, unspecified; N26.1 Atrophy of kidney (terminal); Z93.6 Other artificial openings of urinary tract status; K59.00 Constipation, unspecified; Z89.611 Acquired absence of right leg above knee; Z93.2 Ileostomy status; I10 Essential (primary) hypertension; E66.9 Obesity, unspecified; Z68.22 Body mass index [BMI] 22.0-22.9, adult; Z79.84 Long term (current) use of oral hypoglycemic drugs; Z79.899 Other long term (current) drug therapy
CPT/HCPCS: 36415; 36569; 36600; 71045; 73600; 73610; 73721; 74018; 74176; 76000; 76770; 80048; 80053; 80069; 80202; 81001; 82274; 82306; 82652; 82803; 82962; 83036; 83605; 83630; 83690; 83735; 84100; 84443; 84484; 85014; 85018; 85025; 85027; 85610; 85652; 85730; 86140; 86255; 86850; 86900; 86920; 86922; 87015; 87040; 87070; 87075; 87077; 87086; 87102; 87116; 87177; 87186; 87205; 87206; 87209; 87493; 87506; 87640; 87641; 88304; 88307; 88311; 93005; 93306; 93923; 94667; 94668; 97110; 97163; 97165; 97530; 97802; 99284; J2185; J7030; J7040; J7120; P9016; P9047; A4216; C1751; J0153; J0295; J2405

== ENCOUNTER 2017-09-08 16:15 | Outpatient (RCR) | payer MEDICARE, SELFPAY ==
[2017-09-08 18:38] LABS: Anion Gap 9 (5-15); BUN 15 mg/dL (7-18); BUN/Creat Ratio 13.3 RATIO (10-20); Calcium,Total 7.5 mg/dL (8.5-10.1); Chloride 105 mmol/L (98-107); Creatinine, Serum 1.13 mg/dL (0.70-1.30); EST Glomerular Filtration Rate 68 mL/min (>60); Est Glom Filt Rate - Afr Amer 82 mL/min (>60); Glucose 126 mg/dL (74-106); Potassium 4.1 mmol/L (3.5-5.1); Sodium Level 141 mmol/L (136-145)
[2017-09-08 18:42] LABS: Vancomycin, Trough Level 21.7 ug/mL (5.0-15.0)
[2017-09-08 18:49] LABS: Hematocrit 27.8 % (40-54); Hemoglobin 8.6 g/dl (13.0-16.5); Mean Corp Hgb Conc 30.9 g/gl (32-36); Mean Corpuscular Hgb 26.8 pg (27.0-32.0); Mean Corpuscular Volume 86.6 fL (80-94); Mean Platelet Vol. 9.8 fl (6.2-12.0); Platelet Count 273 K/mm3 (150-450); RBC Distribution Width CV 15.7 % (11.6-14.6); RBC Distribution Width SD 48.2 fl (35.1-43.9); Red Blood Count 3.21 M/mm3 (4.6-6.2); Scan Indicated on CBC? Y/N NO; White Blood Count 5.2 K/mm3 (4.4-11.0)
[2017-09-08 19:06] LABS: Erythrocyte Sedimentation Rate 65 mm/hr (0-20)
== END 2017-09-09 23:59 ==
LOC: LABSPEC 16:15
PROVIDERS: Family Provider Family Medicine; PCP Family Medicine; Visit Provider Internal Medicine Infectious Disease
DX: A49.02 Methicillin resistant Staphylococcus aureus infection, unspecified site (principal); M86.9 Osteomyelitis, unspecified
CPT/HCPCS: 80048; 80202; 85027; 85652

== ENCOUNTER 2017-09-22 14:45 | Outpatient (RCR) | payer MEDICARE, SELFPAY ==
[2017-09-15 14:50] LABS: Erythrocyte Sedimentation Rate 43 mm/hr (0-20)
[2017-09-15 14:53] LABS: Hematocrit 27.1 % (40-54); Hemoglobin 8.3 g/dl (13.0-16.5); Mean Corp Hgb Conc 30.6 g/gl (32-36); Mean Corpuscular Hgb 25.9 pg (27.0-32.0); Mean Corpuscular Volume 84.7 fL (80-94); Mean Platelet Vol. 8.9 fl (6.2-12.0); Platelet Count 322 K/mm3 (150-450); RBC Distribution Width CV 15.4 % (11.6-14.6); RBC Distribution Width SD 48.1 fl (35.1-43.9); White Blood Count 6.4 K/mm3 (4.4-11.0)
[2017-09-15 14:56] LABS: Scan Indicated on CBC? Y/N NO
[2017-09-15 15:06] LABS: Anion Gap 9 (5-15); BUN 15 mg/dL (7-18); BUN/Creat Ratio 13.2 RATIO (10-20); Calcium,Total 7.7 mg/dL (8.5-10.1); Chloride 106 mmol/L (98-107); Creatinine, Serum 1.14 mg/dL (0.70-1.30); EST Glomerular Filtration Rate 67 mL/min (>60); Est Glom Filt Rate - Afr Amer 81 mL/min (>60); Glucose 191 mg/dL (74-106); Potassium 3.9 mmol/L (3.5-5.1); Sodium Level 138 mmol/L (136-145)
[2017-09-15 15:09] LABS: Vancomycin, Trough Level 22.4 ug/mL (5.0-15.0)
[2017-09-22 15:07] LABS: Hematocrit 26.8 % (40-54); Hemoglobin 8.2 g/dl (13.0-16.5); Mean Corp Hgb Conc 30.6 g/gl (32-36); Mean Corpuscular Hgb 25.3 pg (27.0-32.0); Mean Corpuscular Volume 82.7 fL (80-94); Platelet Count 332 K/mm3 (150-450); RBC Distribution Width CV 15.5 % (11.6-14.6); RBC Distribution Width SD 47.2 fl (35.1-43.9); Red Blood Count 3.24 M/mm3 (4.6-6.2); Scan Indicated on CBC? Y/N NO; White Blood Count 9.4 K/mm3 (4.4-11.0)
[2017-09-22 15:16] LABS: Erythrocyte Sedimentation Rate 84 mm/hr (0-20)
[2017-09-22 15:24] LABS: Vancomycin, Trough Level 13.4 ug/mL (5.0-15.0)
[2017-09-22 15:45] LABS: Anion Gap 10 (5-15); BUN 22 mg/dL (7-18); BUN/Creat Ratio 17.7 RATIO (10-20); Calcium,Total 8.1 mg/dL (8.5-10.1); Chloride 103 mmol/L (98-107); Creatinine, Serum 1.24 mg/dL (0.70-1.30); EST Glomerular Filtration Rate 61 mL/min (>60); Est Glom Filt Rate - Afr Amer 73 mL/min (>60); Glucose 244 mg/dL (74-106); Potassium 4.4 mmol/L (3.5-5.1); Sodium Level 133 mmol/L (136-145)
== END 2017-10-10 23:59 ==
LOC: HHLAB 14:45
PROVIDERS: Family Provider Family Medicine; PCP Family Medicine; Visit Provider Internal Medicine Infectious Disease
DX: E11.621 Type 2 diabetes mellitus with foot ulcer (principal); L97.312 Non-pressure chronic ulcer of right ankle with fat layer exposed; E11.69 Type 2 diabetes mellitus with other specified complication; M86.171 Other acute osteomyelitis, right ankle and foot; B95.62 Methicillin resistant Staphylococcus aureus infection as the cause of diseases classified elsewhere; L89.153 Pressure ulcer of sacral region, stage 3; Z45.2 Encounter for adjustment and management of vascular access device
CPT/HCPCS: 80048; 80202; 85027; 85652

== ENCOUNTER 2017-09-24 16:36 | Inpatient (IN) | payer MEDICARE, SELFPAY ==
[2017-09-24] VITALS (11 sets, daily range): BP systolic 90–135; BP diastolic 43–96; PULSE 104–120; RESP 16–22; TEMP 36.8; O2SAT 100; BMI 24.5; BMI 24.3
[2017-09-24] MEDS: 0.9% Normal Saline 1,000 ML 1000 ML IV (17:18)
[2017-09-24 17:39] LABS: ALB/GLOB Ratio 0.4 RATIO (0.9-2.4); AST(SGOT) 126 U/L (15-37); Alanine Aminotransfer ALT/SGPT 76 U/L (16-61); Albumin, Serum 1.8 g/dL (3.2-5.0); Alkaline Phosphatase 175 U/L (45-117); Anion Gap 11 (5-15); BUN 26 mg/dL (7-18); BUN/Creat Ratio 22.4 RATIO (10-20); Chloride 105 mmol/L (98-107); Creatinine, Serum 1.16 mg/dL (0.70-1.30); EST Glomerular Filtration Rate 65 mL/min (>60); Est Glom Filt Rate - Afr Amer 79 mL/min (>60); Estimated Creatinine Clearance 58.56 ml/min; Globulin 4.4 g/dL (2.2-4.2); Glucose 175 mg/dL (74-106); Potassium 4.1 mmol/L (3.5-5.1); Protein, Total 6.2 g/dL (6.4-8.2); Sodium Level 132 mmol/L (136-145)
[2017-09-24 18:00] LABS: Absolute Lymphocyte Count 1.58 X10^3/ul (0.83-4.51); Absolute Neutrophil Count 7.3 X10^3/uL (2.0-7.7); Basophil# 0.02 X10^3/uL; Basophil% 0.2 % (0-1); Eosinophil# 0.22 X10^3/uL; Eosinophils% 2.1 % (0-5); Hematocrit 25.4 % (40-54); Lymphocyte # 1.58 X10^3/ul (4.0); Lymphocyte % 15.4 % (19-41); Mean Corp Hgb Conc 31.5 g/gl (32-36); Mean Corpuscular Hgb 25.6 pg (27.0-32.0); Mean Corpuscular Volume 81.2 fL (80-94); Mean Platelet Vol. 9.2 fl (6.2-12.0); Monocyte# 1.07 X10^3/uL; Monocyte% 10.4 % (0-10); Neutrophil % 71.4 % (47-70); Platelet Count 324 K/mm3 (150-450); RBC Distribution Width CV 15.4 % (11.6-14.6); RBC Distribution Width SD 46.2 fl (35.1-43.9); Red Blood Count 3.13 M/mm3 (4.6-6.2); White Blood Count 10.2 K/mm3 (4.4-11.0)
[2017-09-24 18:02] LABS: POSITIVE COUNT NO; POSITIVE DIFFERENTIAL NO; POSITIVE MORPHOLOGY NO
[2017-09-24 19:08] LABS: Mucous, Urine 0 SEEN /hpf (<or=2+); Red Blood Cells-Urine 0 SEEN /hpf (0-5); Squamous Epithelial Cells - UA 0 SEEN /hpf (0-5)
[2017-09-24 19:15] LABS: Color, Urine Yellow (Yellow); Glucose, Dipstick Normal (Normal); Ketone-Dipstick Negative (Negative); Leukocyte Esterase-Dipstick 100 /ul (Negative); Nitrite-Dipstick Negative (Negative); Occult Blood-Urine 10 /ul (Negative); Protein-Dipstick 30 mg/dl (Negative); Urine Bilirubin Dipstick Negative (Negative); Urine Clarity Clear (Clear); Urine Urobilinogen Normal (Normal); Urine pH 6.5 (5.0 - 8.0)
[2017-09-24 19:21] LABS: White Blood Cells 0-5 SEEN /hpf (0-5)
[2017-09-24 19:22] LABS: Bacteria 3+ /hpf (None Seen)
[2017-09-24 20:02] LABS: Lactic Acid 0.6 mmol/L (0.4-2.0)
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
--- NOTE | 2017-09-24 20:58 | ED.VISSUMM ---
- ER Visit Summary Date of Service: 09/24/17 Chief Complaint: Low blood pressure and high blood sugar History of Present Illness: The patient is a 71 M who presents with low blood pressure and elevated blood sugars that was noticed today at the wound care center. Patient states he has been having some elevated blood sugars over the past several days. Patient states he was admitted to the hospital recently and had his metformin stopped while he was in the hospital. Patient was not restarted on his metformin when he was discharged. Patient states his blood sugars have been in the 300s at home. Patient states he did take a dose of metformin last night. Patient states his blood pressure was low at the wound care center today and he was referred here for evaluation. Physical Examination: Vital signs showed a blood pressure of 90/45 heart rate of 120. There is also mild tachypnea of 22. Patient is afebrile. Patient is in no acute distress. Oral mucosa is pink and moist. Neck is supple. Trachea is midline. There is no JVD noted. Heart was regular and tachycardic. Lungs are clear and equal bilateral. Abdomen is soft. Bowel sounds are normal. There is no tenderness, rebound, or guarding noted. Cranial nerves II through XII are intact. There are no focal motor or sensory deficits noted. The remaining physical exam is within normal limits. Test Results: Chest x-ray shows bibasilar atelectasis but no acute infiltrate. EKG showed sinus tachycardia with a rate of 108. There are no acute ST or T-wave changes noted. CBC shows an anemia with a hemoglobin of 8.0. This is stable compared to previous results. Comprehensive metabolic profile showed CO2 was low at 16. Sodium was slightly low at 132. Glucose was only 175. BUN was elevated at 26. Serum ketones were negative. Urinalysis shows leukocyte esterase of 100 with 3+ bacteria. There were 0-5 white blood cells however. Lactate was obtained was normal at 0.6. Emergency Department Course and Treatment: Patient was given IV fluids here. Patient's blood pressure improved. After the IV fluids had infused patient's blood pressure did fall back down again to 95/51. Case was discussed with the hospitalist. Patient will be started on Levaquin for possible urinary tract infection and sepsis. Patient will be admitted to ICU. Patient understood and was agreeable with the plan. All questions were answered. Disposition: Admit to ICU Impression: Hypotension, sepsis This note was generated with [employer] dictation software. It may contain incorrect words, spelling, and punctuation that were not noted in review of the chart prior to signing ED Disposition - Plan for ED Patient: Disposition: Acute Care [facility] Chief Complaint: Hypotension Diagnosis: Hypotension, History of urostomy
--- NOTE | 2017-09-24 21:35 | NURSING ---
[id number] Called [facility] charge nursed[facility] to send patient to the floor.
[2017-09-24] MEDS: 0.9% Normal Saline 1,000 ML IV.SOLN. 2326.92 ML IV (21:43)
[2017-09-24] MEDS: levoFLOXacin IV 750 MG/150 ML BAG 100 MG IV (21:55)
[2017-09-24] MEDS: Pravastatin 40 MG Tablet PO (23:16)
[2017-09-24] MEDS: Dicyclomine 10 MG Capsule PO (23:16)
[2017-09-24] MEDS: Heparin Injection (Vial) 5,000 UNIT/ML VIAL 5000 UNIT SC (23:17)
[2017-09-24] MEDS: 0.9% Normal Saline 1,000 ML 100 ML IV (23:17)
[2017-09-24] MEDS: Insulin Lispro 100 UNIT/ML INSULN.PEN SQ (23:35)
[2017-09-24 23:51] LABS: Bedside Glucose 169 mg/dL (70-110)
[2017-09-25] VITALS (22 sets, daily range): BP systolic 100–161; BP diastolic 46–78; PULSE 84–117; RESP 15–24; TEMP 36.3–37.7; O2SAT 94–100
[2017-09-25 00:37] LABS: Lactic Acid 0.6 mmol/L (0.4-2.0)
[2017-09-25] MEDS: 0.9% NaCl PICC Flush IV ×2 (00:57→04:43)
[2017-09-25 04:58] LABS: Hematocrit 22.4 % (40-54); Mean Corp Hgb Conc 31.3 g/gl (32-36); Mean Corpuscular Volume 83.3 fL (80-94); Mean Platelet Vol. 8.8 fl (6.2-12.0); Platelet Count 329 K/mm3 (150-450); RBC Distribution Width CV 14.9 % (11.6-14.6); RBC Distribution Width SD 44.1 fl (35.1-43.9); Red Blood Count 2.69 M/mm3 (4.6-6.2); White Blood Count 7.4 K/mm3 (4.4-11.0)
[2017-09-25 04:59] LABS: Scan Indicated on CBC? Y/N NO
[2017-09-25 05:11] LABS: Anion Gap 13 (5-15); BUN 21 mg/dL (7-18); BUN/Creat Ratio 22.4 RATIO (10-20); Calcium,Total 7.3 mg/dL (8.5-10.1); Chloride 113 mmol/L (98-107); Creatinine, Serum 0.94 mg/dL (0.70-1.30); EST Glomerular Filtration Rate 84 mL/min (>60); Est Glom Filt Rate - Afr Amer 101 mL/min (>60); Estimated Creatinine Clearance 72.27 ml/min; Glucose 183 mg/dL (74-106); Potassium 3.9 mmol/L (3.5-5.1); Sodium Level 140 mmol/L (136-145)
[2017-09-25] MEDS: Ceftriaxone 1 GM/50 ML BAG IV (05:13)
[2017-09-25] MEDS: Levothyroxine 25 MCG TABLET PO (05:13)
[2017-09-25] MEDS: Heparin Injection (Vial) 5,000 UNIT/ML VIAL 5000 UNIT SC ×3 (05:13→21:18)
--- NOTE | 2017-09-25 05:26 | PCM.RX.CS ---
Consult Pharmacy has been consulted to manage selected antiobiotic: Vancomycin Type of Consult: New start Suspected Infection: Sepsis Labs: Sodium 140 mmol/L (136-145) 09/25/17 04:40 Potassium 3.9 mmol/L (3.5-5.1) 09/25/17 04:40 Chloride 113 mmol/L (98-107) H 09/25/17 04:40 Carbon Dioxide 14.0 mmol/L (21.0-32.0) L 09/25/17 04:40 Anion Gap 13 (5-15) 09/25/17 04:40 BUN 21 mg/dL (7-18) H 09/25/17 04:40 Creatinine 0.94 mg/dL (0.70-1.30) 09/25/17 04:40 Est GFR (MDRD) Af Amer 101 mL/min (>60) 09/25/17 04:40 Est GFR (MDRD) Non-Af 84 mL/min (>60) 09/25/17 04:40 BUN/Creatinine Ratio 22.4 RATIO (10-20) H 09/25/17 04:40 Glucose 183 mg/dL (74-106) H 09/25/17 04:40 Estimated Creatinine Clearance: 58.56 Goal Trough: 15-20 mcg/mL Pharmacy Plan for Drug Dosing: Pharmacy Service will continue to monitor and adjust dosing as required. Medications Vancomycin HCl 750 mg/ Sodium (Chloride) 265 mls @ 250 mls/hr IV Q12H BITA Discontinued Medications Vancomycin HCl 1,250 mg/ (Sodium Chloride) 275 mls @ 167 mls/hr IV X1 ONE Stop: 09/25/17 00:38 Last Admin: 09/24/17 23:18 Dose: 167 mls/hr Follow-Up Labs: Trough Vancomycin Labs to be done on [date and time ordered]: 09/26 @ 1100
[2017-09-25] MEDS: Insulin Lispro 100 UNIT/ML INSULN.PEN SQ ×4 (09:53→21:18)
[2017-09-25] MEDS: Pantoprazole Sodium 40 MG Tablet PO (09:54)
[2017-09-25] MEDS: Dicyclomine 10 MG Capsule PO ×2 (09:54→21:17)
[2017-09-25] MEDS: Glimepiride 4 MG Tablet PO (09:54)
[2017-09-25] MEDS: Collagenase 30gm Tube 1 APPLIC TOPICAL (09:54)
[2017-09-25] MEDS: Glucerna Shake 120 ML LIQUID PO ×3 (09:54→21:17)
--- NOTE | 2017-09-25 10:17 | PCM.HP.ID ---
Problem List (1) Hypotension Status: Acute Reason for Consult: hypotension Consulted by: Dr. Banuelos History of Present Illness: The patient is a 71 year old M with paraplegia and recent admission for septic shock. Discharged on 6 weeks iv vanc via picc for L ankle osteo with MRSA. Had been doing fine, follows with wound care. No issues with picc. Did notice some dizziness with getting up for past few years. Also with some white discharge from penis for a few weeks as well. No fever, no chest pain, no SOB or cough. Ankle healing. Found to have SBP in 80s, sent to ED from wound care. cxs sent, vanc, ceftriaxone, fluc started. Feeling ok this AM, family at bedside. Full ROS performed and neg except as noted above. - Medical History Past Medical History (Chronic Problems): Chronic Problems (Last Reviewed 09/24/17 @ 22:20 by Sascha Hadley MD) Type 2 diabetes mellitus with diabetic polyneuropathy (Chronic) Ulcer of left lower extremity with 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) Type 2 diabetes mellitus with diabetic polyneuropathy (Chronic) Hypercholesterolemia (Chronic) Paraplegia (Chronic) Hyperlipemia (Chronic) Hypertension (Chronic) History of urostomy (Chronic) Kidney failure (Chronic) 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) Hypothyroidism (Chronic) Diabetes mellitus (Chronic) Allergies/Adverse Reactions: Allergies codeine Adverse Reaction (Verified 09/24/17 16:40) heavy sweats prednisone Adverse Reaction (Verified 09/24/17 16:40) headache, heavy sweats Home Medications: Ambulatory Orders Medication Instructions Recorded Glimepiride [Amaryl] 4 mg PO DAILY 01/02/15 Levothyroxine [Synthroid] 25 mcg PO DAILY 01/02/15 omeprazole 40 mg capsule,delayed 40 mg PO QDAY 05/28/17 release zinc 50 mg tablet 50 mg PO DAILY 05/28/17 Collagenase [Santyl] 1 applic TOPICAL DAILY tube 09/03/17 Dicyclomine HCl [Bentyl] 10 mg PO BID 09/24/17 Diphenoxylate/Atrop [Lomotil] 1 - 2 tab PO Q6H PRN PRN 09/24/17 Furosemide [Lasix] 40 mg PO DAILY 09/24/17 Metoprolol Tartrate 25 mg PO BID 09/24/17 Potassium Chloride [Klor-Con M20] 20 meq PO DAILY 09/24/17 Pravastatin Sodium [Pravastatin 40 mg PO QHS 09/24/17 Sodium] Vital Signs Temp Pulse Resp BP Pulse Ox 98.1 F 104 H 20 H 142/74 H 96 09/25/17 09:57 09/25/17 09:57 09/25/17 09:57 09/25/17 09:57 09/25/17 09:57 Oxygen Delivery Method Room Air Weight: 76.748 kg Body Mass Index (BMI) 24.3 Laboratory Tests Past 24 Hrs 09/25/17 09/25/17 09/25/17 00:05 04:40 04:40 WBC 7.4 RBC 2.69 L Hgb 7.0 L Hct 22.4 L MCV 83.3 MCH 26.0 L MCHC 31.3 L RDW 14.9 H RDW Differential 44.1 H Plt Count 329 MPV 8.8 Sodium 140 Potassium 3.9 Chloride 113 H Carbon Dioxide 14.0 L Anion Gap 13 BUN 21 H Creatinine 0.94 Estim Creat Clear Calc 72.27 Est GFR (MDRD) Af Amer 101 Est GFR (MDRD) Non-Af 84 BUN/Creatinine Ratio 22.4 H Glucose 183 H Lactic Acid 0.6 Calcium 7.3 L Blood Type Antibody Screen Crossmatch 09/25/17 08:20 WBC RBC Hgb Hct MCV MCH MCHC RDW RDW Differential Plt Count MPV Sodium Potassium Chloride Carbon Dioxide Anion Gap BUN Creatinine Estim Creat Clear Calc Est GFR (MDRD) Af Amer Est GFR (MDRD) Non-Af BUN/Creatinine Ratio Glucose Lactic Acid Calcium Blood Type A POSITIVE Antibody Screen NEGATIVE Crossmatch See Detail - Other Studies Radiology: [] reviewed Other Studies: [] Route of nutrition/ use of supplements: [] Nutritional Intake: [] IV Site: [] Lozano Catheter: [] - Physical Exam General: Alert, Oriented x3, Cooperative, No apparent distress HEENT: Atraumatic, PERRLA, EOMI Neck: Supple, No Nodes Lungs: Clear to auscultation, Normal air movement Cardiovascular: Regular rate, Regular Rhythm, No murmurs Abdomen: Bowel Sounds Present, Soft, Non Tender, Non-Distended Extremities: No edema Skin: Ulcer/ Wound - Over R hip. L ankle wrapped. Reviewed photo. IV Site: PICC, without redness Neurological: Cranial nerves II-XII grossly intact - Assessment/Plan Antibiotics: [] Assessment/Plan: [] Active and Suspected Problems (Last Reviewed 09/24/17 @ 22:20 by Sascha Hadley MD) Blister of left leg without infection (Acute) Hypotension (Acute) Probable sepsis (Acute) Malnutrition (Acute) Vascular disease, peripheral (Suspected) Hypotension of unclear cause. On iv vanc for L ankle mrsa osteo. Normal wbc, no fever, feeling ok other than a few weeks of orthostasis at home. New R hip skin breakdown, but does not appear infection. Cxs pending, CT abd pending. Cont vanc, ceftriaxone, fluc for now for empiric coverage. Overall feels well, this may be noninfectious in cause. Will follow, thank you.
--- NOTE | 2017-09-25 10:21 | NURSING ---
wound photo: left medial foot/ankle
--- NOTE | 2017-09-25 10:22 | NURSING ---
wound photo: left lateral ankle/lower leg
--- NOTE | 2017-09-25 10:23 | NURSING ---
wound photo: right hip
--- NOTE | 2017-09-25 10:23 | NURSING ---
wound photo: sacrum
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
[2017-09-25 11:36] LABS: Bedside Glucose 171 mg/dL (70-110)
[2017-09-25 11:56] LABS: Bedside Glucose 227 mg/dL (70-110)
--- NOTE | 2017-09-25 13:12 | NURSING ---
Urostomy appliance intact. pt states he will have family being in supplies from home since pt prefers to use his own appliances. will assist patient as needed.
--- NOTE | 2017-09-25 13:13 | NURSING ---
Low air loss mattress ordered for patient at this time.
--- NOTE | 2017-09-25 13:48 | CASEMGMT ---
Face to Face with patient for initial transition planning/care coordination assessment. RN CM introduced self and role at [facility], pt voices understanding and consents to assessment at this time. Pt is lying in bed in no distress at this time. Pt is A/O x4 at this time and answers all questions appropriately at this time. Care providers, pharmacy, and demographics verified. See attached link. Pt voices no further concerns/needs at this time. Advised pt to ask for CM if any further questions/concerns/needs arise, voices understanding. CM to follow for any further discharge planning/needs. PLAN: TBD SStiain RN CHERYL
--- NOTE | 2017-09-25 14:58 | CASEMGMT ---
RN CHERYL told SW patient would be willing to go to TCU. Unfortunately TCU does not take patient's insurance. SONIA printed a list of in network facilities. SONIA spoke with patient and told him about TCU not being in network. SONIA told him some of the other facilities that are in network. He said he probably will just go home as he won't go to any of the places SONIA named. SONIA told him SW will leave the list with him so he can look over it. SW to follow in case patient changes his mind and wants to go to another SNF. Luann ALLEN BACK PAD INSPECTOR
[2017-09-25 15:12] LABS: Hematocrit 25.9 % (40-54); Hemoglobin 8.1 g/dl (13.0-16.5)
--- NOTE | 2017-09-25 15:42 | CASEMGMT ---
Patient asked SW about ratings for some of the other facilities. SW printed ratings for 3 of the facilities and gave them to patient. Patient also asked about a hospital bed for home and a special off loading mattress if he would go home. SW told him we could check on this. Luann WARE
[2017-09-25] MEDS: 0.9% Normal Saline 1,000 ML 100 ML IV ×2 (16:51→22:33)
[2017-09-25 17:25] LABS: Bedside Glucose 198 mg/dL (70-110)
[2017-09-25] MEDS: Pravastatin 40 MG Tablet PO (21:17)
[2017-09-25] MEDS: Metoprolol Tartrate 25 MG Tablet PO (21:18)
[2017-09-25 21:25] LABS: Bedside Glucose 227 mg/dL (70-110)
[2017-09-26] VITALS (14 sets, daily range): BP systolic 132–174; BP diastolic 67–78; PULSE 77–99; RESP 16–20; TEMP 36.5–37.8; O2SAT 97–100
[2017-09-26] MEDS: Acetaminophen 325 MG Tablet 650 MG PO (00:08)
[2017-09-26] MEDS: Levothyroxine 25 MCG TABLET PO (04:49)
[2017-09-26] MEDS: Heparin Injection (Vial) 5,000 UNIT/ML VIAL 5000 UNIT SC ×3 (04:50→22:19)
[2017-09-26 05:58] LABS: Absolute Lymphocyte Count 1.27 X10^3/ul (0.83-4.51); Absolute Neutrophil Count 3.7 X10^3/uL (2.0-7.7); Basophil# 0.01 X10^3/uL; Basophil% 0.2 % (0-1); Eosinophil# 0.35 X10^3/uL; Eosinophils% 5.8 % (0-5); Hematocrit 25.3 % (40-54); Hemoglobin 7.9 g/dl (13.0-16.5); Lymphocyte # 1.27 X10^3/ul (4.0); Mean Corp Hgb Conc 31.2 g/gl (32-36); Mean Corpuscular Hgb 25.9 pg (27.0-32.0); Mean Platelet Vol. 8.9 fl (6.2-12.0); Monocyte# 0.67 X10^3/uL; Monocyte% 11.1 % (0-10); Neutrophil # 3.69 X10^3/uL (2.7-7.7); Neutrophil % 60.9 % (47-70); Platelet Count 296 K/mm3 (150-450); RBC Distribution Width CV 14.9 % (11.6-14.6); Red Blood Count 3.05 M/mm3 (4.6-6.2); White Blood Count 6.1 K/mm3 (4.4-11.0)
[2017-09-26 06:03] LABS: Anion Gap 9 (5-15); BUN 16 mg/dL (7-18); BUN/Creat Ratio 18.1 RATIO (10-20); Calcium,Total 7.5 mg/dL (8.5-10.1); Chloride 116 mmol/L (98-107); Creatinine, Serum 0.88 mg/dL (0.70-1.30); EST Glomerular Filtration Rate 90 mL/min (>60); Est Glom Filt Rate - Afr Amer 108 mL/min (>60); Estimated Creatinine Clearance 77.19 ml/min; Glucose 176 mg/dL (74-106); Potassium 3.9 mmol/L (3.5-5.1); Sodium Level 142 mmol/L (136-145)
[2017-09-26 06:07] LABS: POSITIVE COUNT NO; POSITIVE DIFFERENTIAL NO; POSITIVE MORPHOLOGY NO
[2017-09-26 07:06] LABS: Bedside Glucose 163 mg/dL (70-110)
[2017-09-26] MEDS: Metoprolol Tartrate 25 MG Tablet PO ×2 (08:41→22:20)
[2017-09-26] MEDS: Insulin Lispro 100 UNIT/ML INSULN.PEN SQ ×4 (08:41→22:19)
[2017-09-26] MEDS: Ceftriaxone 1 GM/50 ML BAG IV (08:42)
[2017-09-26] MEDS: Dicyclomine 10 MG Capsule PO ×2 (08:42→22:21)
[2017-09-26] MEDS: Pantoprazole Sodium 40 MG Tablet PO (08:42)
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
[2017-09-26] MEDS: Glucerna Shake 120 ML LIQUID PO ×3 (10:45→16:51)
[2017-09-26 11:22] LABS: Vancomycin, Trough Level 23.3 ug/mL (5.0-15.0)
[2017-09-26] MEDS: Collagenase 30gm Tube 1 APPLIC TOPICAL (11:32)
[2017-09-26 11:41] LABS: Bedside Glucose 238 mg/dL (70-110)
--- NOTE | 2017-09-26 12:43 | PCM.RX.CS ---
Consult Pharmacy has been consulted to manage selected antiobiotic: Vancomycin Type of Consult: Follow-up Suspected Infection: Sepsis Prior Doses of Antibiotics Received/Current Regimen: VANCOMYCIN 1250MG IV X1 09/24 @2318 VANCOMYCIN 750MG IV Q12HR: 09/25 @1400, 09/25 @2233 Labs: Sodium 142 mmol/L (136-145) 09/26/17 05:40 Potassium 3.9 mmol/L (3.5-5.1) 09/26/17 05:40 Chloride 116 mmol/L (98-107) H 09/26/17 05:40 Carbon Dioxide 17.0 mmol/L (21.0-32.0) L 09/26/17 05:40 Anion Gap 9 (5-15) 09/26/17 05:40 BUN 16 mg/dL (7-18) 09/26/17 05:40 Creatinine 0.88 mg/dL (0.70-1.30) 09/26/17 05:40 Est GFR (MDRD) Af Amer 108 mL/min (>60) 09/26/17 05:40 Est GFR (MDRD) Non-Af 90 mL/min (>60) 09/26/17 05:40 BUN/Creatinine Ratio 18.1 RATIO (10-20) 09/26/17 05:40 Glucose 176 mg/dL (74-106) H 09/26/17 05:40 Vancomycin Trough 23.3 ug/mL (5.0-15.0) H 09/26/17 10:20 Microbiology: Microbiology 09/24/17 23:40 Urine, Nephrostomy Urine Culture - Preliminary Culture exhibits no growth. Weight used for dosin.7 kg Goal Trough: 15-20 mcg/mL Pharmacy Plan for Drug Dosing: The patient had a trough drawn which resulted in a value of 23.3 (12hrs from last dose given). The patient did not get a dose this morning. Will plan on restarting vancomycin this evening (24hrs from last dose given) and reduce the dose. Will draw a trough prior to the 4th dose of new regimen. PLAN/RECOMMENDATIONS 1. Start vancomycin 500mg IV Q12hrs 09/26 @2300 2. Trough scheduled for 09/28/17 @1030 3. Pharmacy Service will continue to monitor and adjust dosing as required.
--- NOTE | 2017-09-26 12:49 | PCM.PN.ID ---
Patient Problems: Active and Suspected Problems (Last Reviewed 09/24/17 @ 22:20 by Sascha Hadley MD) Blister of left leg without infection (Acute) Hypotension (Acute) Probable sepsis (Acute) Malnutrition (Acute) Vascular disease, peripheral (Suspected) Subjective: Feeling fine, no fever, dizziness/weakness improved. - Physical Exam General: Alert, Cooperative, No apparent distress Lungs: Clear to auscultation, Normal air movement Cardiovascular: Regular rate, Regular Rhythm Abdomen: Soft, Non Tender, Non-Distended Skin: Ulcer/ Wound - L ankle wrapped Vital Signs Temp Pulse Resp BP Pulse Ox 98.2 F 84 17 143/67 H 100 09/26/17 08:38 09/26/17 10:59 09/26/17 08:38 09/26/17 08:38 09/26/17 08:38 Oxygen Delivery Method Room Air Weight: 76.748 kg Body Mass Index (BMI) 24.3 Intake and Output for Last 24 Hours 09/24/17 09/25/17 09/26/17 23:59 23:59 23:59 Intake Total 8190 / 8190 1386 / 1386 Output Total 3550 / 3550 675 / 675 Balance 4640 / 4640 711 / 711 Microbiology Past 72 Hours 09/24/17 23:40 Urine Culture - Preliminary Urine, Nephrostomy Culture exhibits no growth. Laboratory Tests Past 24 Hrs 09/25/17 09/25/17 09/26/17 08:20 14:50 05:40 WBC 6.1 RBC 3.05 L Hgb 8.1 L 7.9 L Hct 25.9 L 25.3 L MCV 83.0 MCH 25.9 L MCHC 31.2 L RDW 14.9 H RDW Differential 44.0 H Plt Count 296 MPV 8.9 Immature Gran % (Auto) 1.000 H Neut % (Auto) 60.9 Lymph % (Auto) 21.0 [place] % (Auto) 11.1 H Eos % (Auto) 5.8 H Baso % (Auto) 0.2 Absolute Neuts (auto) 3.7 Absolute Lymphs (auto) 1.27 Total Counted Not Reportable Sodium Potassium Chloride Carbon Dioxide Anion Gap BUN Creatinine Estim Creat Clear Calc Est GFR (MDRD) Af Amer Est GFR (MDRD) Non-Af BUN/Creatinine Ratio Glucose Calcium Vancomycin Trough Crossmatch See Detail 09/26/17 09/26/17 05:40 10:20 WBC RBC Hgb Hct MCV MCH MCHC RDW RDW Differential Plt Count MPV Immature Gran % (Auto) Neut % (Auto) Lymph % (Auto) [place] % (Auto) Eos % (Auto) Baso % (Auto) Absolute Neuts (auto) Absolute Lymphs (auto) Total Counted Sodium 142 Potassium 3.9 Chloride 116 H Carbon Dioxide 17.0 L Anion Gap 9 BUN 16 Creatinine 0.88 Estim Creat Clear Calc 77.19 Est GFR (MDRD) Af Amer 108 Est GFR (MDRD) Non-Af 90 BUN/Creatinine Ratio 18.1 Glucose 176 H Calcium 7.5 L Vancomycin Trough 23.3 H Crossmatch POC Glucose 09/26/17 09/26/17 09/25/17 11:30 07:03 21:15 POC Glucose 238 H 163 H 227 H 09/25/17 16:49 POC Glucose 198 H Medical Necessity - Tobacco Use Smoking Status: Never smoker Tobacco Use: Non-smoker Route of nutrition/ use of supplements: [] Nutritional Intake: [] IV Site: [] Lozano Catheter: [] - Assessment/Plan Antibiotics: [] Assessment/Plan: [] Active and Suspected Problems (Last Reviewed 09/24/17 @ 22:20 by Sascha Hadley MD) Blister of left leg without infection (Acute) Hypotension (Acute) Probable sepsis (Acute) Malnutrition (Acute) Vascular disease, peripheral (Suspected) Hypotension of unclear cause. On iv vanc for L ankle mrsa osteo. Normal wbc, no fever, feeling ok other than a few weeks of orthostasis at home. New R hip skin breakdown, but does not appear to have new infection. Ucx with enterobacter, but it's hard to say if this is pathogen vs colonization given nephrostomy tube and lack of inflammation on UA. Bcx so far are neg at about 36 hours. Continue iv vanc as planned with stop date 10/09. Changed fluc to po, stop date 09/30/17 while cx is pending. Changed ceftriaxone to omnicef, stop date 09/30/17. Will follow. Ok for discharge from my perspective.
--- NOTE | 2017-09-26 13:27 | CASEMGMT ---
SW spoke with patient and he said he did not know what he wanted to do. He was thinking about [facility]. SONIA told him SW will fax a referral to [facility] and if they say no that will give him his answer. He was in agreement with this plan. SONIA called Liset at [facility] with referral as well as faxed over information. Await response. Patient will require insurance authorization prior to leaving. Luann ALLEN MSW
[2017-09-26] MEDS: 0.9% Normal Saline 1,000 ML 100 ML IV (14:42)
--- NOTE | 2017-09-26 15:06 | CASEMGMT ---
SONIA spoke with Liset at [facility] and they can take patient. She submitted for pre-cert. SONIA let patient know this information. Plan: [facility] pending insurance approval. Luann WARE
[2017-09-26 17:01] LABS: Bedside Glucose 268 mg/dL (70-110)
[2017-09-26] MEDS: Menthol/Lanolin/Calamine/Znox 113 GM Tube 1 APPLIC TOPICAL (22:20)
[2017-09-26] MEDS: Pravastatin 40 MG Tablet PO (22:21)
[2017-09-26] MEDS: Vancomycin IV 500 MG/100 ML BAG 100 MG IV (22:24)
[2017-09-26 23:00] LABS: Bedside Glucose 324 mg/dL (70-110)
[2017-09-27] VITALS (9 sets, daily range): BP systolic 155–180; BP diastolic 70–82; PULSE 76–90; RESP 16–18; TEMP 36.8–37.5; O2SAT 97–100
[2017-09-27 06:18] LABS: Absolute Lymphocyte Count 1.42 X10^3/ul (0.83-4.51); Basophil# 0.02 X10^3/uL; Basophil% 0.4 % (0-1); Eosinophil# 0.41 X10^3/uL; Eosinophils% 7.6 % (0-5); Hematocrit 24.1 % (40-54); Hemoglobin 7.7 g/dl (13.0-16.5); Lymphocyte # 1.42 X10^3/ul (4.0); Lymphocyte % 26.2 % (19-41); Mean Corpuscular Hgb 26.5 pg (27.0-32.0); Mean Corpuscular Volume 82.8 fL (80-94); Mean Platelet Vol. 8.7 fl (6.2-12.0); Monocyte% 9.2 % (0-10); Neutrophil # 3.02 X10^3/uL (2.7-7.7); Neutrophil % 55.9 % (47-70); Platelet Count 287 K/mm3 (150-450); RBC Distribution Width CV 14.9 % (11.6-14.6); RBC Distribution Width SD 44.2 fl (35.1-43.9); Red Blood Count 2.91 M/mm3 (4.6-6.2); White Blood Count 5.4 K/mm3 (4.4-11.0)
[2017-09-27 06:19] LABS: POSITIVE COUNT NO; POSITIVE DIFFERENTIAL NO; POSITIVE MORPHOLOGY NO
[2017-09-27] MEDS: Heparin Injection (Vial) 5,000 UNIT/ML VIAL 5000 UNIT SC ×2 (06:19→21:15)
[2017-09-27] MEDS: Levothyroxine 25 MCG TABLET PO (06:19)
[2017-09-27 07:05] LABS: Bedside Glucose 191 mg/dL (70-110)
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
[2017-09-27] MEDS: Dicyclomine 10 MG Capsule PO ×2 (08:49→21:20)
[2017-09-27] MEDS: Ferrous Sulfate 325 MG Tablet PO (08:49)
[2017-09-27] MEDS: Ascorbic Acid 500 MG Tablet PO (08:49)
[2017-09-27] MEDS: Metoprolol Tartrate 25 MG Tablet PO ×2 (08:49→21:20)
[2017-09-27] MEDS: Pantoprazole Sodium 40 MG Tablet PO (08:49)
[2017-09-27] MEDS: Cefdinir 300 MG Capsule PO ×3 (08:49→21:20)
[2017-09-27] MEDS: Insulin Lispro 100 UNIT/ML INSULN.PEN SQ ×4 (08:50→21:39)
[2017-09-27] MEDS: Fluconazole 100 MG Tablet PO (08:50)
[2017-09-27] MEDS: Menthol/Lanolin/Calamine/Znox 113 GM Tube 1 APPLIC TOPICAL ×2 (08:51→21:30)
[2017-09-27 09:01] LABS: Ferritin 415 ng/mL (26-388); Iron 13 ug/dL (65-175)
[2017-09-27 09:48] LABS: ALB/GLOB Ratio 0.4 RATIO (0.9-2.4); AST(SGOT) 46 U/L (15-37); Alanine Aminotransfer ALT/SGPT 72 U/L (16-61); Albumin, Serum 1.4 g/dL (3.2-5.0); Alkaline Phosphatase 149 U/L (45-117); Anion Gap 9 (5-15); BUN 15 mg/dL (7-18); BUN/Creat Ratio 15.5 RATIO (10-20); Calcium,Total 7.5 mg/dL (8.5-10.1); Chloride 110 mmol/L (98-107); Creatinine, Serum 0.97 mg/dL (0.70-1.30); EST Glomerular Filtration Rate 81 mL/min (>60); Est Glom Filt Rate - Afr Amer 98 mL/min (>60); Estimated Creatinine Clearance 70.03 ml/min; Globulin 3.8 g/dL (2.2-4.2); Glucose 258 mg/dL (74-106); Iron Binding Capacity,Total 136 ug/dL (250-450); LDH 150 U/L (87-241); Potassium 3.9 mmol/L (3.5-5.1); Protein, Total 5.2 g/dL (6.4-8.2); Sodium Level 136 mmol/L (136-145)
[2017-09-27] MEDS: Collagenase 30gm Tube 1 APPLIC TOPICAL (12:33)
[2017-09-27] MEDS: Vancomycin IV 500 MG/100 ML BAG 100 MG IV ×2 (12:33→23:48)
[2017-09-27 12:45] LABS: Bedside Glucose 233 mg/dL (70-110)
[2017-09-27 16:50] LABS: Bedside Glucose 278 mg/dL (70-110)
[2017-09-27] MEDS: Glucerna Shake 120 ML LIQUID PO (21:19)
[2017-09-27] MEDS: Pravastatin 40 MG Tablet PO (21:20)
[2017-09-28 00:21] LABS: Bedside Glucose 241 mg/dL (70-110)
[2017-09-28] MEDS: Heparin Injection (Vial) 5,000 UNIT/ML VIAL 5000 UNIT SC ×3 (05:02→21:11)
[2017-09-28] MEDS: 0.9% NaCl PICC Flush IV ×4 (05:02→16:10)
[2017-09-28] MEDS: Levothyroxine 25 MCG TABLET PO (05:02)
[2017-09-28 05:15] VITALS: BP 126/62; PULSE 73; RESP 17; TEMP 36.7; O2SAT 98
[2017-09-28 06:31] LABS: Absolute Lymphocyte Count 1.26 X10^3/ul (0.83-4.51); Absolute Neutrophil Count 3.8 X10^3/uL (2.0-7.7); Basophil# 0.01 X10^3/uL; Basophil% 0.2 % (0-1); Eosinophil# 0.52 X10^3/uL; Eosinophils% 8.5 % (0-5); Hematocrit 25.1 % (40-54); Hemoglobin 7.8 g/dl (13.0-16.5); Lymphocyte # 1.26 X10^3/ul (4.0); Lymphocyte % 20.6 % (19-41); Mean Corp Hgb Conc 31.1 g/gl (32-36); Mean Corpuscular Hgb 25.5 pg (27.0-32.0); Mean Platelet Vol. 8.8 fl (6.2-12.0); Monocyte% 8.2 % (0-10); Neutrophil # 3.82 X10^3/uL (2.7-7.7); Neutrophil % 62.2 % (47-70); Platelet Count 264 K/mm3 (150-450); RBC Distribution Width CV 15.4 % (11.6-14.6); RBC Distribution Width SD 46.2 fl (35.1-43.9); Red Blood Count 3.06 M/mm3 (4.6-6.2); White Blood Count 6.1 K/mm3 (4.4-11.0)
[2017-09-28 06:44] LABS: POSITIVE COUNT NO; POSITIVE DIFFERENTIAL NO; POSITIVE MORPHOLOGY NO
[2017-09-28 07:21] LABS: Bedside Glucose 260 mg/dL (70-110)
[2017-09-28 07:58] LABS: Haptoglobin 479 mg/dL (34-200)
[2017-09-28] MEDS: Alteplase 2 MG/2 ML Vial IV (08:39)
--- NOTE | 2017-09-28 09:18 | NURSING ---
PICC DRESSING CHANGED BY Kike BULLOCK. CATH FLOW GIVEN BY Nuzhat PRADHAN. CATH FLOW REASSESSED AT 0910. BETO BACK 10 ML OF BLOOD AND FLUSHED WITH 10 ML NS.
[2017-09-28] MEDS: Insulin Lispro 100 UNIT/ML INSULN.PEN SQ ×4 (09:48→21:11)
[2017-09-28 10:08] VITALS: BP 118/65; PULSE 76; RESP 16; TEMP 37.5; O2SAT 97
[2017-09-28] MEDS: Pantoprazole Sodium 40 MG Tablet PO (10:09)
[2017-09-28] MEDS: Dicyclomine 10 MG Capsule PO ×2 (10:09→21:12)
[2017-09-28] MEDS: Ferrous Sulfate 325 MG Tablet PO ×2 (10:09→16:10)
[2017-09-28] MEDS: Ascorbic Acid 500 MG Tablet PO (10:09)
[2017-09-28] MEDS: Fluconazole 100 MG Tablet PO (10:11)
[2017-09-28 10:14] VITALS: PULSE 76
[2017-09-28] MEDS: Cefdinir 300 MG Capsule PO ×2 (10:14→21:12)
[2017-09-28] MEDS: Metoprolol Tartrate 25 MG Tablet PO ×2 (10:14→21:12)
[2017-09-28] MEDS: Collagenase 30gm Tube 1 APPLIC TOPICAL (10:15)
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
[2017-09-28 11:41] LABS: Bedside Glucose 228 mg/dL (70-110)
[2017-09-28 12:08] LABS: Vancomycin, Trough Level 21.8 ug/mL (5.0-15.0)
[2017-09-28] MEDS: Vancomycin IV 500 MG/100 ML BAG 100 MG IV (12:46)
[2017-09-28] MEDS: Menthol/Lanolin/Calamine/Znox 113 GM Tube 1 APPLIC TOPICAL ×2 (12:48→21:10)
--- NOTE | 2017-09-28 14:29 | PHA.PHARE_ITS ---
Consult Pharmacy has been consulted to manage selected antiobiotic: Vancomycin Type of Consult: Follow-up Suspected Infection: Sepsis Prior Doses of Antibiotics Received/Current Regimen: Currently on vancomycin 500mg IV q12h with doses given last night at 23:48 and today 09/28/17 at 12:46. Labs: Sodium 136 mmol/L (136-145) 09/27/17 08:30 Potassium 3.9 mmol/L (3.5-5.1) 09/27/17 08:30 Chloride 110 mmol/L (98-107) H 09/27/17 08:30 Carbon Dioxide 17.0 mmol/L (21.0-32.0) L 09/27/17 08:30 Anion Gap 9 (5-15) 09/27/17 08:30 BUN 15 mg/dL (7-18) 09/27/17 08:30 Creatinine 0.97 mg/dL (0.70-1.30) 09/27/17 08:30 Est GFR (MDRD) Af Amer 98 mL/min (>60) 09/27/17 08:30 Est GFR (MDRD) Non-Af 81 mL/min (>60) 09/27/17 08:30 BUN/Creatinine Ratio 15.5 RATIO (10-20) 09/27/17 08:30 Glucose 258 mg/dL (74-106) H 09/27/17 08:30 Vancomycin Trough 21.8 ug/mL (5.0-15.0) H 09/28/17 11:12 Microbiology: Microbiology 09/24/17 23:40 Urine, Nephrostomy Urine Culture - Final Whitney albicans 09/24/17 21:43 Blood Culture (Wb) - Arm Right Bacteria Detection (PCR) - Final Staphylococcus epidermidis mecA Resistance Marker 09/24/17 21:43 Blood Culture (Wb) - Arm Right Blood Culture - Preliminary Staphylococcus epidermidis 09/26/17 00:10 Stool Stool Occult Blood (DWAYNE) - Final Goal Trough: 15-20 mcg/mL Pharmacy Plan for Drug Dosing: Trough obtained today at 11:12 was 21.8 (taken about 11 hours after previous dose). Even though the dose had been decreased from 750mg IV q12h to 500mg IV q12h after the previous trough of 23.3, 21.8 is still above goal range of 15-20 , and per policy, any more doses should be held until the level is <20 mg/L. Given that a dose was given today after the trough was drawn, we will obtain a random level tomorrow morning and dose from there. The patient may benefit from a larger dose but at a 24-hr frequency to allow more time for the drug to clear. Pharmacy Service will continue to monitor and adjust dosing as required. Follow-Up Labs: Trough Vancomycin - random Labs to be done on [date and time ordered]: 09/29/17 06:00
[2017-09-28 16:06] VITALS: BP 152/66; PULSE 83; RESP 16; TEMP 37.2; O2SAT 100
[2017-09-28 16:36] LABS: Bedside Glucose 250 mg/dL (70-110)
[2017-09-28 21:07] VITALS: BP 163/73; PULSE 85; RESP 16; TEMP 37.4; O2SAT 99
[2017-09-28] MEDS: Glucerna Shake 120 ML LIQUID PO (21:10)
[2017-09-28 21:12] VITALS: PULSE 85
[2017-09-28] MEDS: Pravastatin 40 MG Tablet PO (21:12)
[2017-09-28 21:21] LABS: Bedside Glucose 323 mg/dL (70-110)
[2017-09-29 00:35] VITALS: BP 149/79; PULSE 90; RESP 16; TEMP 37.2; O2SAT 99
[2017-09-29 04:58] VITALS: BP 123/63; PULSE 87; RESP 16; TEMP 37.2; O2SAT 97
[2017-09-29] MEDS: Levothyroxine 25 MCG TABLET PO (05:00)
[2017-09-29] MEDS: Heparin Injection (Vial) 5,000 UNIT/ML VIAL 5000 UNIT SC ×2 (05:00→14:29)
[2017-09-29 06:38] LABS: Absolute Lymphocyte Count 1.35 X10^3/ul (0.83-4.51); Absolute Neutrophil Count 3.5 X10^3/uL (2.0-7.7); Basophil# 0.02 X10^3/uL; Basophil% 0.3 % (0-1); Eosinophil# 0.65 X10^3/uL; Eosinophils% 10.9 % (0-5); Hematocrit 24.9 % (40-54); Hemoglobin 7.7 g/dl (13.0-16.5); Lymphocyte # 1.35 X10^3/ul (4.0); Lymphocyte % 22.5 % (19-41); Mean Corp Hgb Conc 30.9 g/gl (32-36); Mean Corpuscular Hgb 25.6 pg (27.0-32.0); Mean Corpuscular Volume 82.7 fL (80-94); Mean Platelet Vol. 9.2 fl (6.2-12.0); Monocyte# 0.47 X10^3/uL; Monocyte% 7.8 % (0-10); Neutrophil # 3.47 X10^3/uL (2.7-7.7); POSITIVE COUNT NO; POSITIVE DIFFERENTIAL NO; POSITIVE MORPHOLOGY NO; Platelet Count 317 K/mm3 (150-450); RBC Distribution Width CV 15.5 % (11.6-14.6); RBC Distribution Width SD 47.2 fl (35.1-43.9); Red Blood Count 3.01 M/mm3 (4.6-6.2)
[2017-09-29 06:59] LABS: Vancomycin, Random Level 20.1 ug/mL (0.0-15.0)
[2017-09-29 07:05] LABS: Bedside Glucose 274 mg/dL (70-110)
[2017-09-29] MEDS: Ascorbic Acid 500 MG Tablet PO (08:11)
[2017-09-29] MEDS: Insulin Lispro 100 UNIT/ML INSULN.PEN SQ ×3 (08:11→16:29)
[2017-09-29] MEDS: Ferrous Sulfate 325 MG Tablet PO ×2 (08:11→16:28)
--- NOTE | 2017-09-29 08:47 | CASEMGMT ---
Updates faxed to Lexi Ramos. Plan: [facility] pending pre-cert Luann ALLEN MSW
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
[2017-09-29] MEDS: Cefdinir 300 MG Capsule PO (10:59)
[2017-09-29] MEDS: Pantoprazole Sodium 40 MG Tablet PO (10:59)
[2017-09-29] MEDS: Menthol/Lanolin/Calamine/Znox 113 GM Tube 1 APPLIC TOPICAL (10:59)
[2017-09-29] MEDS: Dicyclomine 10 MG Capsule PO (10:59)
[2017-09-29] MEDS: Fluconazole 100 MG Tablet PO (10:59)
[2017-09-29 11:00] VITALS: BP 144/65; PULSE 87; RESP 18; TEMP 37.1; O2SAT 99
[2017-09-29] MEDS: Metoprolol Tartrate 25 MG Tablet PO (11:00)
[2017-09-29] MEDS: Glucerna Shake 120 ML LIQUID PO (11:00)
--- NOTE | 2017-09-29 11:18 | PCM.RX.CS ---
Consult Pharmacy has been consulted to manage selected antiobiotic: Vancomycin Type of Consult: Follow-up Suspected Infection: Osteomyelitis Labs: Sodium 136 mmol/L (136-145) 09/27/17 08:30 Potassium 3.9 mmol/L (3.5-5.1) 09/27/17 08:30 Chloride 110 mmol/L (98-107) H 09/27/17 08:30 Carbon Dioxide 17.0 mmol/L (21.0-32.0) L 09/27/17 08:30 Anion Gap 9 (5-15) 09/27/17 08:30 BUN 15 mg/dL (7-18) 09/27/17 08:30 Creatinine 0.97 mg/dL (0.70-1.30) 09/27/17 08:30 Est GFR (MDRD) Af Amer 98 mL/min (>60) 09/27/17 08:30 Est GFR (MDRD) Non-Af 81 mL/min (>60) 09/27/17 08:30 BUN/Creatinine Ratio 15.5 RATIO (10-20) 09/27/17 08:30 Glucose 258 mg/dL (74-106) H 09/27/17 08:30 Vancomycin Trough 21.8 ug/mL (5.0-15.0) H 09/28/17 11:12 Random Vancomycin 20.1 ug/mL (0.0-15.0) H 09/29/17 05:20 Microbiology: Microbiology 09/28/17 16:30 Stool C. difficile DNA Amplification - Final 09/24/17 23:40 Urine, Nephrostomy Urine Culture - Final Whitney albicans 09/24/17 21:43 Blood Culture (Wb) - Arm Right Bacteria Detection (PCR) - Final Staphylococcus epidermidis mecA Resistance Marker 09/24/17 21:43 Blood Culture (Wb) - Arm Right Blood Culture - Preliminary Staphylococcus epidermidis 09/26/17 00:10 Stool Stool Occult Blood (DWAYNE) - Final Pharmacy Plan for Drug Dosing: The patient had a random vancomycin trough level drawn which resulted in a value of 20.1 (this morning ~18 hours from last dose given). Discussed case with ID, and will resume vancomycin to treat his MRSA osteo 09/30/17 at a 24hr interval. Patient is anticipated to be discharged tomorrow, will not reorder a trough at this time. If the patient is not discharged tomorrow, will plan on getting a trough prior to the 3rd dose of new regimen. PLAN/RECOMMENDATIONS 1. Vancomycin 1000mg IV Q24hrs to start 09/30/17 @1000 2. No trough at this time. If not discharged, will recheck 10/01 prior to dose being given 3. Pharmacy Service will continue to monitor and adjust dosing as required.
[2017-09-29 12:11] LABS: Bedside Glucose 316 mg/dL (70-110)
--- NOTE | 2017-09-29 12:18 | PCM.PN.ID ---
Patient Problems: Active and Suspected Problems (Last Reviewed 09/24/17 @ 22:20 by Sascha Hadley MD) Hypotension (Acute) Probable sepsis (Acute) Subjective: Feeling ok, no fever, no abd pain. - Physical Exam General: Alert, Cooperative, No apparent distress Lungs: Clear to auscultation, Normal air movement Cardiovascular: Regular rate, Regular Rhythm Abdomen: Soft, Non Tender, Non-Distended, - - urostomy in place Skin: Ulcer/ Wound - R hip. Vital Signs Temp Pulse Resp BP Pulse Ox 98.9 F 87 16 144/65 H 97 09/29/17 04:58 09/29/17 11:00 09/29/17 04:58 09/29/17 11:00 09/29/17 04:58 Oxygen Delivery Method Room Air Weight: 76.748 kg Body Mass Index (BMI) 24.3 Intake and Output for Last 24 Hours 09/27/17 09/28/17 09/29/17 23:59 23:59 23:59 Intake Total 940 / 940 3073 / 3073 138 / 138 Output Total 1650 / 1650 3250 / 3250 350 / 350 Balance -710 / -710 -177 / -177 -212 / -212 Microbiology Past 72 Hours 09/28/17 16:30 C. difficile DNA Amplification - Final Stool 09/24/17 23:40 Urine Culture - Final Urine, Nephrostomy Whitney albicans 09/24/17 21:43 Bacteria Detection (PCR) - Final Blood Culture (Wb) - Arm Right Staphylococcus epidermidis mecA Resistance Marker Blood Culture - Preliminary Staphylococcus epidermidis 09/26/17 00:10 Stool Occult Blood (DWAYNE) - Final Stool Laboratory Tests Past 24 Hrs 09/29/17 09/29/17 05:20 05:20 WBC 6.0 RBC 3.01 L Hgb 7.7 L Hct 24.9 L MCV 82.7 MCH 25.6 L MCHC 30.9 L RDW 15.5 H RDW Differential 47.2 H Plt Count 317 MPV 9.2 Immature Gran % (Auto) 0.500 Neut % (Auto) 58.0 Lymph % (Auto) 22.5 [place] % (Auto) 7.8 Eos % (Auto) 10.9 H Baso % (Auto) 0.3 Absolute Neuts (auto) 3.5 Absolute Lymphs (auto) 1.35 Total Counted Not Reportable Random Vancomycin 20.1 H POC Glucose 09/29/17 09/29/17 09/28/17 12:07 06:48 21:01 POC Glucose 316 H 274 H 323 H 09/28/17 16:16 POC Glucose 250 H Medical Necessity - Tobacco Use Smoking Status: Never smoker Tobacco Use: Non-smoker Route of nutrition/ use of supplements: [] Nutritional Intake: [] IV Site: [] Lozano Catheter: [] - Assessment/Plan Antibiotics: [] Assessment/Plan: [] Active and Suspected Problems (Last Reviewed 09/24/17 @ 22:20 by Sascha Hadley MD) Blister of left leg without infection (Acute) Hypotension (Acute) Probable sepsis (Acute) Malnutrition (Acute) Vascular disease, peripheral (Suspected) Hypotension of unclear cause. On iv vanc for L ankle mrsa osteo. Overall improved. Ucx with enterobacter and c.alb, but it's hard to say if this is pathogen vs colonization given nephrostomy tube and lack of inflammation on UA. Bcx with single (+) for CoNS, consistent with contaminant. Continue iv vanc as planned with stop date 10/09. Weekly bmp, cbc, and vanc trough, fax to [phone]. Changed fluc to po, stop date 09/30/17. Changed ceftriaxone to omnicef, stop date 09/30/17. Will follow. Ok for discharge from my perspective. D/w pharmacy.
--- NOTE | 2017-09-29 13:45 | CASEMGMT ---
SONIA spoke with Liset from [facility]. She said patient is in his co-pay days so he would have to pay $150 per day. They would want a check up front for 30 days which would be around $4500. SONIA told her will check with patient and get back to her. SW spoke with patient about this and he said that is fine. SONIA told him we are just waiting on insurance to approve. SONIA called Liset back and let her know patient will pay the money up front. She will let her business office know this and they will also check to see if insurance has an answer yet. Plan: Lexi Ramos pending insurance approval. Luann WARE
--- NOTE | 2017-09-29 15:42 | CASEMGMT ---
Received insurance authorization for patient to go to [facility]. Faxed orders to [facility]. Set up transport with [facility] for 6p via cot. [facility] needed some time to get his bed set up with special mattress. Completed convalescent on HENS. SONIA notified patient, RN, and executive secretary social welfare of transport time. Liset at [facility] was already aware SONIA was arranging transport for 6p. Plan: d/c to [facility] under skilled level of care on a convalescent stay. [facility] transported via cot. Luann ALLEN NAT INSTRUCTOR
--- NOTE | 2017-09-29 15:45 | PCM.TXEXTCAR ---
- Diet 09/24/17 21:43 Diet: Cardiac/Low Cholesterol Food consistency:: Regular Liquid Consistency:: Regular/Thin - Wound(s) Left buttocks Wound Type: Stasis Ulcer Right BKA Wound Type: Stasis Ulcer left ankle Wound Type: Stasis Ulcer Left ankle upper Wound Type: Stasis Ulcer left anteromedial foot/ankle Wound Type: abrasion from wrap Dressing Change: Dry Sterile Dressing left lateral malleolus Wound Type: Pressure Injury Dressing Change: Santyl left lateral lower leg Wound Type: Pressure Injury Dressing Change: Dry Sterile Dressing right hip Wound Type: Pressure Injury Dressing Change: Mepilex sacrum Wound Type: Pressure Injury left buttock Wound Type: cluster of healed pressure injuries - Suggestions for Active Care Change Position every (hours): 2 - Allergies/Procedures Done in Hospital Allergies/Adverse Reactions: Allergies codeine Adverse Reaction (Verified 09/24/17 16:40) heavy sweats prednisone Adverse Reaction (Verified 09/24/17 16:40) headache, heavy sweats Procedures: None - Type of Care/Length of Stay Estimated LOS: Convalescent Care Less Than 30 days Type of Care Needed: Skilled Rehab Potential: Good Prognosis: Good - Additional Orders/Day of Discharge Day of Discharge: 09/29/17 - Dietary and Speech Recommendations Dietitian Recommendations/Changes: Rec diet change to CHO controlled, low sodium. - Follow Up Care Primary Care Physician: Angelina Caceres DO [Primary Care Provider] - Please follow up with your Primary Care Physician in: 3-5 days after discharge
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
[2017-09-29 16:24] VITALS: BP 170/69; PULSE 73; RESP 16; TEMP 37; O2SAT 100
[2017-09-29 16:51] LABS: Bedside Glucose 266 mg/dL (70-110)
--- NOTE | 2017-09-29 17:40 | NURSING ---
Report given to Nurse, Catherine, at [facility]. Pt being picked up by [facility] for transport.
[2017-09-29 17:50] VITALS: BP 132/64; PULSE 98; RESP 18; TEMP 37.1; O2SAT 100
== END 2017-09-29 18:10 | disposition skilled nursing facility (03) | DRG 872 ==
LOC: ED 21:08 → PCU 22:01
PROVIDERS: Admitting Provider Hospitalist; Emergency Provider Emergency Medicine; Family Provider Family Medicine; PCP Family Medicine; Visit Provider Family Medicine
DX: A41.9 Sepsis, unspecified organism (principal); G82.20 Paraplegia, unspecified; M86.8X7 Other osteomyelitis, ankle and foot; N39.0 Urinary tract infection, site not specified; L97.922 Non-pressure chronic ulcer of unspecified part of left lower leg with fat layer exposed; E46 Unspecified protein-calorie malnutrition; Z89.611 Acquired absence of right leg above knee; B95.62 Methicillin resistant Staphylococcus aureus infection as the cause of diseases classified elsewhere; E03.9 Hypothyroidism, unspecified; E78.5 Hyperlipidemia, unspecified; Z79.899 Other long term (current) drug therapy; E11.42 Type 2 diabetes mellitus with diabetic polyneuropathy; I10 Essential (primary) hypertension; Z93.6 Other artificial openings of urinary tract status; D63.8 Anemia in other chronic diseases classified elsewhere; Z79.84 Long term (current) use of oral hypoglycemic drugs; K52.9 Noninfective gastroenteritis and colitis, unspecified; I73.9 Peripheral vascular disease, unspecified; B96.89 Other specified bacterial agents as the cause of diseases classified elsewhere; Z68.24 Body mass index [BMI] 24.0-24.9, adult
CPT/HCPCS: 11042; 36415; 71045; 80048; 80053; 80202; 81001; 82009; 82274; 82728; 82962; 83010; 83540; 83550; 83605; 83615; 84484; 85014; 85018; 85025; 85027; 85652; 86850; 86900; 86920; 86922; 87040; 87077; 87086; 87088; 87101; 87106; 87149; 87186; 87493; 93005; 94762; 97110; 97166; 97602; 97802; 99282; J2997; J7030; J7040; J7050; P9016; A4216

== ENCOUNTER 2017-10-03 16:00 | Outpatient (RCR) | payer MEDICARE, SELFPAY ==
[2017-09-10 00:55] VITALS: BP 155/79; PULSE 84; RESP 16; TEMP 36.5
[2017-09-17 13:53] VITALS: BP 111/76; PULSE 106; RESP 20; TEMP 37
--- NOTE | 2017-09-17 16:45 | PCM.WC.PN ---
(1) Ulcer of left lower extremity with fat layer exposed Status: Chronic Current Visit: Yes Code(s): L97.922 - Non-pressure chronic ulcer of unspecified part of left lower leg with fat layer exposed (2) Type 2 diabetes mellitus with diabetic polyneuropathy Status: Chronic Current Visit: Yes Code(s): E11.42 - Type 2 diabetes mellitus with diabetic polyneuropathy (3) Malnutrition Status: Acute Current Visit: Yes Code(s): E46 - Unspecified protein-calorie malnutrition (4) Vascular disease, peripheral Status: Suspected Current Visit: Yes Code(s): I73.9 - Peripheral vascular disease, unspecified (5) Type 2 diabetes mellitus with diabetic polyneuropathy Status: Chronic Current Visit: Yes Code(s): E11.42 - Type 2 diabetes mellitus with diabetic polyneuropathy (6) Paraplegia Status: Chronic Current Visit: Yes Code(s): G82.20 - Paraplegia, unspecified Type of Wound Date of Service: 09/18/17 Chief Complaint: Pressure ulcer to left ankle and he is also status post bone biopsy History of Wound: Mr. Small is a 71 year old with past medical history of diabetes mellitus type 2 and paraplegia who presents here with decubitus ulcer to the left ankle. This is been chronic and he was previously seen by Dr. Bashir at the wound healing center. He is also well-known to me because I provided care for him while he was admitted to [facility]. Evaluated him for wound devitalization and performed a fibula bone biopsy to the distal aspect in the operating room. We previously reviewed these pathology reports as negative for osteomyelitis. The wound culture that was obtained prior to bone biopsy did grow MRSA and he has since been treated via IV for this. His case was managed by infectious disease during his hospital admission he denies redness, odor, fever, chill, nausea, vomiting. He did not follow-up with vascular surgeon, Dr. Alarcon, as advised during his last admission. Progress of Wound: Improving - Physical Exam Vital Signs Temp Pulse Resp BP 98.6 F 106 H 20 H 111/76 09/17/17 13:53 09/17/17 13:53 09/17/17 13:53 09/17/17 13:53 General: Alert, Oriented x3, Cooperative HEENT: Atraumatic Extremities: No Calf Tenderness, Diminished Peripheral Pulses, Edema - Mild left lower extremity, - - Capillary refill time less than 4 seconds to all digits of the left lower extremity Skin: Ulcer/ Wound - No purulence, erythema, streaking, odor, necrosis, exposed bone, acute signs of infection left lower extremity. Bone biopsy site suture removal was performed today and this is fully epithelialized. There is mainly a granular base with scant central fibrous tissue noted. The peripheral skin is very atrophic., - - There is no skin discontinuity to the heel left. There is some ecchymosis to the anterior ankle without any skin discontinuity or infection or blister. Wound Measurements and Assessment WC - Nurse 1 - General Ulcer Measurement Start: 09/17/17 10:41 Freq: Status: Active Protocol: Activity Type Activity Date Activity User E-Sign Co-Sign Detail Recorded Client Recorded Date Recorded By Document 09/17/17 13:53 DL [id number] 09/17/17 14:00 DL 09/17/17 13:53 Wound Center Nurse 1 [Ulcer Assessment] #10 LEFT LATERAL MALEOLLUS -Current Size (cm) - Length 2.6 -Current Size (cm) - Width 1.5 -Current Size (cm) - Depth 0.2 -Total Square Cm 3.90 -Photo Taken No -Exudate Amt Small (1-33%) -Exudate Type Serosanguineous -Wound Margin Distinct, Outline Attached -Granulation Amt Small (1-33%) -Granulation Quality Red -Necrosis Amt Medium (34-66%) -Necrotic Tissue Type Adherent Slough -Structure Exposed N/A -Texture (Itzel-wound Skin Appearance) Scarring -Moisture (Itzel-wound Skin Appearance No Abnormality ) -Color (Itzel-wound Skin Appearance) Hemosiderin Staining Mottled -Temperature (Itzel-wound Skin No Abnormality Appearance) (Pt Warm) -Tenderness on Palpation (Itzel-wound No Skin Appearance) -Ulcer Cleansing Rinsed/ Irrigated with Saline -Foul Odor after Cleansing No -Anesthetic Used 4% Lidocaine Solution - Nurse 2 - General Ulcer CM Notes Start: 09/17/17 10:41 Freq: Status: Active Protocol: Activity Type Activity Date Activity User E-Sign Co-Sign Detail Recorded Client Recorded Date Recorded By Document 09/17/17 14:25 MW [id number] 09/17/17 14:33 MW 09/17/17 14:25 Wound Center Nurse 2 [Procedure/Treatment] -Time 14:29 -Correct Patient Yes -Correct Side, Site, Position Yes -Correct Procedure Yes -Procedure Performed Yes -Type of Procedure Debridement -Clinical Debridement Subcutaneous -Post Debridement Size (cm) - Length 2.7 -Post Debridement Size (cm) - Width 1.6 -Post Debridement Size (cm) - Depth 0.2 -Total Square Cm 4.32 -Wound/Ulcer Outcome Not Healed -Ulcer Cleansing Rinsed/ Irrigated with Saline -Foul Odor after Cleansing No -Bioengineered Tissue No -Bleeding Controlled with Pressure -Treatment Response Procedure Tolerated Well [See Physician Procedure note for Specifics] Pain Scale: 0-10 Numeric [Pain] -Is Patient Pain Free? Yes Musculoskeletal: No Tenderness to Palpation of Joints or Extremities, Muscle Wasting - Paralysis noted left lower extremity. He presents in a wheelchair, - - Left above-knee amputation is noted Neurological: - - Lack of epicritic sensation light touch left lower extremity Psych/Mental Status: Normal Affect, Appropriate Debridement Note Post-Debridement Measurements/Treatment WC - Nurse 2 - General Ulcer CM Notes Start: 09/17/17 10:41 Freq: Status: Active Protocol: Activity Type Activity Date Activity User E-Sign Co-Sign Detail Recorded Client Recorded Date Recorded By Document 09/17/17 14:25 MW [id number] 09/17/17 14:33 MW 09/17/17 14:25 Wound Center Nurse 2 #10 LEFT LATERAL MALEOLLUS -Time 14:29 -Correct Patient Yes -Correct Side, Site, Position Yes -Correct Procedure Yes -Procedure Performed Yes -Type of Procedure Debridement -Clinical Debridement Subcutaneous -Post Debridement Size (cm) - Length 2.7 -Post Debridement Size (cm) - Width 1.6 -Post Debridement Size (cm) - Depth 0.2 -Total Square Cm 4.32 -Wound/Ulcer Outcome Not Healed -Ulcer Cleansing Rinsed/ Irrigated with Saline -Foul Odor after Cleansing No -Bioengineered Tissue No -Bleeding Controlled with Pressure -Treatment Response Procedure Tolerated Well Pain Scale: 0-10 Numeric Is Patient Pain Free? Yes Wound debrided: lateral ankle Laterality: Left Wound Grade/Stage: grade 1 Type of Debridement: Excisional debridement Anesthesia Used: 4% Lidocaine Solution Depth: in the subcutaneous layer Percentage of wound debrided: 100 Instrument Used: #15 blade Tissue Removed: fibrous, devitalized subcutaneous, biofilm, slough Amount of bleeding with debridement: Mild Bleeding Controlled with: Pressure Patient tolerated procedure well Assessment/Plan Active Problems Type 2 diabetes mellitus with diabetic polyneuropathy (Chronic) Ulcer of left lower extremity with 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) Malnutrition (Acute) Type 2 diabetes mellitus with diabetic polyneuropathy (Chronic) Paraplegia (Chronic) Assessment: Left lateral ankle ulcer with resolved MRSA infection; no osteomyelitis (etiology is arterial). Peripheral vascular disease. Diabetes with neuropathy. Gait impairments with wheelchair Plan: I reviewed and discussed his care plan today. His previous diagnostic data from his most recent hospital admission was also reviewed. Excisional subcutaneous debridement was performed as noted in the clinical panel. I recommend changing the site daily with Santyl applied in nickel thickness; he has been doing this. To continue strict offloading. He has an offloading pillow ring noted and his wound quality has improved since his hospital admission. He was reassured no local or systemic signs of illness are noted. It is noted he completed a course of antibiotics under the management of infectious disease for this condition. To continue nutritional supplementation as advised. He was not able tolerate Alan and does not like this. It is okay to resume his other protein supplementation. He is abnormal noninvasive vascular studies and a referral was previously provided to see Dr. Alarcon. The wound care center nursing staff will help facilitate this. He understands he is at risk for continued limb loss. Answered all his questions.
[2017-09-24 15:43] VITALS: BP 87/46; PULSE 121; RESP 18; TEMP 37
--- NOTE | 2017-09-24 19:28 | PCM.WC.PN ---
(1) Ulcer of left lower extremity with fat layer exposed Status: Chronic Current Visit: Yes Code(s): L97.922 - Non-pressure chronic ulcer of unspecified part of left lower leg with fat layer exposed (2) Type 2 diabetes mellitus with diabetic polyneuropathy Status: Chronic Current Visit: Yes Code(s): E11.42 - Type 2 diabetes mellitus with diabetic polyneuropathy (3) Malnutrition Status: Acute Current Visit: Yes Code(s): E46 - Unspecified protein-calorie malnutrition (4) Vascular disease, peripheral Status: Suspected Current Visit: Yes Code(s): I73.9 - Peripheral vascular disease, unspecified (5) Type 2 diabetes mellitus with diabetic polyneuropathy Status: Chronic Current Visit: Yes Code(s): E11.42 - Type 2 diabetes mellitus with diabetic polyneuropathy (6) Paraplegia Status: Chronic Current Visit: Yes Code(s): G82.20 - Paraplegia, unspecified (7) Blister of left leg without infection Status: Acute Current Visit: Yes Qualifiers: Encounter type: initial encounter Qualified Code(s): S80.822A - Blister (nonthermal), left lower leg, initial encounter Code(s): S80.822A - Blister (nonthermal), left lower leg, initial encounter Type of Wound Date of Service: 09/24/17 Chief Complaint: Pressure ulcer to left ankle and he is also status post bone biopsy History of Wound: Mr. Small is a 71 year old with past medical history of diabetes mellitus type 2 and paraplegia who presents here with decubitus ulcer to the left ankle. I performed a fibula bone biopsy to the distal aspect in the operating room. We previously reviewed these pathology reports as negative for osteomyelitis. The wound culture that was obtained prior to bone biopsy did grow MRSA and he has since been treated via IV for this. His case was managed by infectious disease during his hospital admission he denies redness, odor, fever, chill, nausea, vomiting. He did not follow-up with vascular surgeon as advised after his last admission. He now has a follow-up session scheduled with vascular surgery this upcoming week. He has a new blister to his left leg in which she does not recall a trauma. His caregiver denies that his offloading device presses on the site. The patient denies pain or odor or redness coming from the site. Patient also relates he has a buttock wound. He also reports that he has been hyperglycemic with blood sugars ranging in the 400s. He also relates he feels very fatigued because he is not set up in 4 days and he is hypotensive this afternoon. His caregiver reports this is not consistent with his baseline and is concerned. His prior authorization for advanced wound care product, epi fix, is still pending. Progress of Wound: Improving lateral ankle wound. Left leg blister. Status change - Physical Exam Vital Signs Temp Pulse Resp BP 98.6 F 121 H 18 87/46 L 09/24/17 15:43 09/24/17 15:43 09/24/17 15:43 09/24/17 15:43 General: Alert, Oriented x3, Cooperative HEENT: Atraumatic Extremities: No cyanosis, Capillary Refill Less than 3 Seconds, No Calf Tenderness - No pain with wound manipulation. Negative Nicolás and Silvestre sign left. Paralysis left lower extremity. Right above-knee amputation noted., Diminished Peripheral Pulses, Edema - Mild left lower extremity Skin: Ulcer/ Wound - There is no purulence, erythema, streaking, odor, or acute infection noted from the left lower extremity. His peripheral skin is atrophic and hairless. He does have a serous filled bullet to the lateral left mid leg with no deep tissue exposed after drainage noted; the skin was left intact as a biologic dressing. No deep tissue necrosis noted. The lateral distal fibula wound has improved granulation tissue and no exposed capsular bone. Wound Measurements and Assessment WC - Nurse 1 - General Ulcer Measurement Start: 09/17/17 10:41 Freq: Status: Active Protocol: Activity Type Activity Date Activity User E-Sign Co-Sign Detail Recorded Client Recorded Date Recorded By Document 09/24/17 15:43 [place] [id number] 09/24/17 15:50 MT 09/24/17 15:43 Wound Center Nurse 1 [Ulcer Assessment] #11 SCROTUM- POSTERIOR -Combined with other wound No -Photo Taken No -Tunneling No -Undermining/Tunneling No -Circular Undermining No #10 LEFT LATERAL MALEOLLUS -Combined with other wound No -Current Size (cm) - Length 2.5 -Current Size (cm) - Width 1 -Current Size (cm) - Depth 0.2 -Total Square Cm 2.5 -Photo Taken No -Tunneling No -Undermining/Tunneling No -Circular Undermining No -Classification - Thickness Full Thickness without Exposed Support Structure -Exudate Amt Small (1-33%) -Exudate Type Serosanguineous -Wound Margin Thickened & Rolled Under -Granulation Amt Medium (34-66%) -Granulation Quality Gate -Slough/Fibrin Yes -Necrosis Amt Medium (34-66%) -Necrotic Tissue Type Adherent Slough -Structure Exposed N/A -Texture (Itzel-wound Skin Appearance) Assessed -Moisture (Itzel-wound Skin Appearance Assessed ) Maceration -Color (Itzel-wound Skin Appearance) Assessed -Temperature (Itzel-wound Skin No Abnormality Appearance) (Pt Warm) -Tenderness on Palpation (Itzel-wound No Skin Appearance) -Ulcer Cleansing Rinsed/ Irrigated with Saline -Foul Odor after Cleansing No -Anesthetic Used 4% Lidocaine Solution WC - Nurse 2 - General Ulcer CM Notes Start: 09/17/17 10:41 Freq: Status: Active Protocol: Activity Type Activity Date Activity User E-Sign Co-Sign Detail Recorded Client Recorded Date Recorded By Document 09/24/17 15:58 [id number] 09/24/17 16:04 09/24/17 15:58 Wound Center Nurse 2 [Procedure/Treatment] -Time 16:01 -Correct Patient Yes -Correct Side, Site, Position Yes -Correct Procedure Yes -Procedure Performed Yes -Type of Procedure Debridement -Clinical Debridement Subcutaneous -Post Debridement Size (cm) - Length 2.6 -Post Debridement Size (cm) - Width 1.1 -Post Debridement Size (cm) - Depth 0.2 -Total Square Cm 2.86 -Wound/Ulcer Outcome Not Healed -Ulcer Cleansing Rinsed/ Irrigated with Saline -Foul Odor after Cleansing No -Bioengineered Tissue No -Topical Lidocaine (%) 4 -Bleeding Controlled with Pressure -Treatment Response Procedure Tolerated Well [See Physician Procedure note for Specifics] Pain Scale: 0-10 Numeric [Pain] -Is Patient Pain Free? Yes Musculoskeletal: No Tenderness to Palpation of Joints or Extremities, Cachexia, Muscle Wasting, - - No knee contracture left lower extremity. Ambulation with wheelchair noted. Neurological: - - Lack of epicritic sensation light touch left lower extremity Psych/Mental Status: Normal Affect, Appropriate Debridement Note Post-Debridement Measurements/Treatment WC - Nurse 2 - General Ulcer CM Notes Start: 09/17/17 10:41 Freq: Status: Active Protocol: Activity Type Activity Date Activity User E-Sign Co-Sign Detail Recorded Client Recorded Date Recorded By Document 09/17/17 14:25 MW [id number] 09/17/17 14:33 MW Document 09/24/17 15:58 TM [id number] 09/24/17 16:04 TM 09/17/17 09/24/17 14:25 15:58 Wound Center Nurse 2 #10 LEFT LATERAL MALEOLLUS -Time 14:29 16:01 -Correct Patient Yes Yes -Correct Side, Site, Position Yes Yes -Correct Procedure Yes Yes -Procedure Performed Yes Yes -Type of Procedure Debridement Debridement -Clinical Debridement Subcutaneous Subcutaneous -Post Debridement Size (cm) - Length 2.7 2.6 -Post Debridement Size (cm) - Width 1.6 1.1 -Post Debridement Size (cm) - Depth 0.2 0.2 -Total Square Cm 4.32 2.86 -Wound/Ulcer Outcome Not Healed Not Healed -Ulcer Cleansing Rinsed/ Rinsed/ Irrigated with Irrigated with Saline Saline -Foul Odor after Cleansing No No -Bioengineered Tissue No No -Topical Lidocaine (%) 4 -Bleeding Controlled with Pressure Pressure -Treatment Response Procedure Procedure Tolerated Well Tolerated Well Pain Scale: 0-10 Numeric Is Patient Pain Free? Yes Yes Wound debrided: lateral ankle Laterality: Left Wound Grade/Stage: grade 1 Type of Debridement: Excisional debridement Anesthesia Used: 4% Lidocaine Solution Depth: in the subcutaneous layer Percentage of wound debrided: 100 Instrument Used: #15 blade Tissue Removed: fibrous, devitalized subcutaneous, biofilm, slough Severity: Fat Layer Exposed Amount of bleeding with debridement: Mild Bleeding Controlled with: Pressure Patient tolerated procedure well Assessment/Plan Active Problems Blister of left leg without infection (Acute) Type 2 diabetes mellitus with diabetic polyneuropathy (Chronic) Ulcer of left lower extremity with 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) Malnutrition (Acute) Type 2 diabetes mellitus with diabetic polyneuropathy (Chronic) Paraplegia (Chronic) Assessment: Left lateral ankle ulcer with resolved MRSA infection; no osteomyelitis (etiology is arterial). Left leg blister. Status change with hypotension and hyperglycemia. Buttock wound. Peripheral vascular disease. Diabetes with neuropathy. Gait impairments with wheelchair Plan: I reviewed and discussed his care plan today. His previous diagnostic data from his most recent hospital admission was also reviewed. Excisional subcutaneous debridement was performed as noted in the clinical panel. I recommend changing the site daily with Santyl applied in nickel thickness; he has been doing this. To continue strict offloading. He has an offloading pillow ring noted and his wound quality has improved since his hospital admission. He was reassured no local or systemic signs of illness are noted. It is noted he completed a course of antibiotics under the management of infectious disease for this condition. To continue nutritional supplementation as advised. He was not able tolerate Alan and does not like this. It is okay to resume his other protein supplementation. He is abnormal noninvasive vascular studies and a referral was previously provided to see vascular surgery and this has been scheduled. He understands he is at risk for continued limb loss. Prior authorization for advanced wound care product, epi fix, still pending. To avoid pressure on his recently identified blister site. This was cleaned after alcohol preparation with a 15 blade and the skin was left intact and the biological barrier. He is reassured no signs of infection noted to the limb. And concerned about his hypotension and reported symptoms; he will go to the emergency room for evaluation at this time. I discussed the case with the emergency room physician including his behavioral changes, lack of signs of infection lower extremity, and new buttock wound. I recommend he follow-up at the wound care center with a wound center provider that can follow him for both his buttock wound is well his extremity wound. The patient is amenable to this plan. Answered all his questions and he will return the wound healing center next week.
[2017-10-03 16:32] VITALS: BP 136/63; PULSE 107; RESP 18; TEMP 36
--- NOTE | 2017-10-03 20:01 | PCM.WC.PN ---
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 Current Visit: Yes Qualifiers: Laterality: right Qualified Code(s): L89.313 - Pressure ulcer of right buttock, stage 3 Code(s): L89.303 - Pressure ulcer of unspecified buttock, stage 3 (2) Stage III pressure ulcer of ankle Status: Chronic Current Visit: Yes Qualifiers: Laterality: left Qualified Code(s): L89.523 - Pressure ulcer of left ankle, stage 3 Code(s): L89.503 - Pressure ulcer of unspecified ankle, stage 3 (3) Pressure ulcer of left leg, stage 3 Status: Chronic Current Visit: Yes Code(s): L89.893 - Pressure ulcer of other site, stage 3 (4) Type 2 diabetes mellitus with diabetic polyneuropathy Status: Chronic Current Visit: Yes Qualifiers: Diabetes mellitus [facility] insulin use: 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 Qualified Code(s): E11.42 - Type 2 diabetes mellitus with diabetic polyneuropathy Code(s): E11.42 - Type 2 diabetes mellitus with diabetic polyneuropathy (5) History of right above knee amputation Status: Inactive Current Visit: Yes Code(s): Z89.611 - Acquired absence of right leg above knee (6) Ulcer of left lower extremity with fat layer exposed Status: Chronic Current Visit: Yes Code(s): L97.922 - Non-pressure chronic ulcer of unspecified part of left lower leg with fat layer exposed (7) Osteomyelitis of left ankle Status: Suspected Current Visit: Yes Qualifiers: Osteomyelitis type: other chronic Qualified Code(s): M86.672 - Other chronic osteomyelitis, left ankle and foot Code(s): M86.9 - Osteomyelitis, unspecified (8) Vascular disease, peripheral Status: Chronic Current Visit: Yes Code(s): I73.9 - Peripheral vascular disease, unspecified (9) 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 Status: Chronic Current Visit: Yes Code(s): L97.322 - Non-pressure chronic ulcer of left ankle with fat layer exposed (10) Paraplegia Status: Chronic Current Visit: Yes Code(s): G82.20 - Paraplegia, unspecified Type of Wound Date of Service: 10/03/17 Chief Complaint: Multiple nonhealing wounds to left lower leg and nonhealing wound to right buttock History of Wound: Mr. Small is a 71 year old with past medical history of diabetes mellitus type 2 and paraplegia who presents here with decubitus ulcer to the left ankle. Bone biopsy to the distal aspect of his fibula was performed by Dr. Berry and was negative for osteomyelitis. The wound culture that was obtained prior to bone biopsy did grow MRSA and he has since been treated via IV for this. His case was managed by infectious disease during his hospital admission. He denies fever, chill, nausea, vomiting. He did not follow-up with vascular surgeon yet as he has been in and out of the hospital and nursing facility. He has a new blister to his left leg on the medial aspect in which he does not recall a trauma. Patient also relates he has a buttock wound on his right buttock/hip area that has been present for several weeks and has not been treated by wound care staff at the SNF where he has been. Progress of Wound: Eric was hospitalized after his last visit for possible sepsis and was sent to [facility], [facility]. He has had drainage from the area on his right buttock/hip for the last 2 days and there has been no treatment to this area at the SNF and he has not been seen by the wound nurse there. He also has a new blistered area on the medial aspect of his left foot. There has also been worsening to the new area that was evaluated by Dr. Berry at his last visit. He remains on IV Vancomycin. He denies fevers or chills and reports that he anticipates to be discharged home in the coming week. He has been trying to offload his right buttock. - Physical Exam Vital Signs Temp Pulse Resp BP 96.8 F L 107 H 18 136/63 H 10/03/17 16:32 10/03/17 16:32 10/03/17 16:32 10/03/17 16:32 General: Alert, Oriented x3, Cooperative, No apparent distress HEENT: Atraumatic, Normocephalic Oral: Moist Mucosa Extremities: Edema Skin: Ulcer/ Wound Wound Measurements and Assessment WC - Nurse 1 - General Ulcer Measurement Start: 09/17/17 10:41 Freq: Status: Active Protocol: Activity Type Activity Date Activity User E-Sign Co-Sign Detail Recorded Client Recorded Date Recorded By Document 10/03/17 16:32 [id number] 10/03/17 16:37 CS Document 10/03/17 18:12 TM [id number] 10/03/17 18:39 TM 10/03/17 10/03/17 16:32 18:12 Wound Center Nurse 1 [Ulcer Assessment] #17 STAGE III PRESSURE ULCER LEFT LATERAL LE -Combined with other wound No -Current Size (cm) - Length 2.3 -Current Size (cm) - Width 2.4 -Current Size (cm) - Depth 0.2 -Total Square Cm 5.52 -Date of Last Picture (Recall this 10/03/17 field) -Photo Taken Yes -Epithelialization None Present -Tunneling No -Undermining/Tunneling No -Circular Undermining No -Classification - Thickness Full Thickness without Exposed Support Structure -Classification - Pressure Ulcer Stage 3 -Exudate Amt Medium (34-66%) -Exudate Type Serosanguineous -Wound Margin Distinct, Outline Attached -Granulation Amt Medium (34-66%) -Granulation Quality Red -Slough/Fibrin Yes -Necrosis Amt Medium (34-66%) -Necrotic Tissue Type Adherent Slough -Structure Exposed Fascia Fat Layer Exposed -Texture (Itzel-wound Skin Appearance) Assessed Friable -Moisture (Itzel-wound Skin Appearance No Abnormality ) Assessed -Color (Itzel-wound Skin Appearance) Assessed Erythema -Temperature (Itzel-wound Skin No Abnormality Appearance) (Pt Warm) -Tenderness on Palpation (Itzel-wound No Skin Appearance) -Ulcer Cleansing Rinsed/ Irrigated with Saline -Foul Odor after Cleansing No -Anesthetic Used 5% Lidocaine Gel # 16 STAGE III PRESSURE ULCER LEFT MEDIAL MALLEOLUS -Combined with other wound No -Current Size (cm) - Length 1.7 -Current Size (cm) - Width 1.5 -Current Size (cm) - Depth 0.1 -Total Square Cm 2.55 -Date of Last Picture (Recall this 10/03/17 field) -Photo Taken Yes -Epithelialization None Present -Tunneling No -Undermining/Tunneling No -Circular Undermining No -Classification - Thickness Full Thickness without Exposed Support Structure -Classification - Pressure Ulcer Stage 3 -Exudate Amt Small (1-33%) -Exudate Type Serosanguineous -Wound Margin Distinct, Outline Attached -Granulation Amt None Present (0 %) -Granulation Quality N/A -Slough/Fibrin Yes -Necrosis Amt Large (67-100%) -Necrotic Tissue Type Adherent Slough -Structure Exposed Fascia Fat Layer Exposed -Texture (Itzel-wound Skin Appearance) Assessed Excoriation Friable Scarring -Moisture (Itzel-wound Skin Appearance No Abnormality ) Assessed -Color (Itzel-wound Skin Appearance) Assessed Erythema -Temperature (Itzel-wound Skin No Abnormality Appearance) (Pt Warm) -Tenderness on Palpation (Itzel-wound No Skin Appearance) -Ulcer Cleansing Rinsed/ Irrigated with Saline -Foul Odor after Cleansing No -Anesthetic Used 5% Lidocaine Gel #15 STAGE III PRESSURE ULCER RIGHT LATERAL GLUTEOUS -Combined with other wound No No -Current Size (cm) - Length 9.2 9.4 -Current Size (cm) - Width 10.4 10.5 -Current Size (cm) - Depth 0.1 0.1 -Total Square Cm 95.68 98.70 -Date of Last Picture (Recall this 10/03/17 10/03/17 field) -Photo Taken Yes Yes -Epithelialization None Present None Present -Tunneling No No -Undermining/Tunneling No No -Circular Undermining No No -Classification - Thickness Unclassifiable (Eschar Covered ) -Classification - Pressure Ulcer Unstageable -Exudate Amt Large (67-100%) Large (67-100%) -Exudate Type Serosanguineous Serous -Wound Margin Distinct, Distinct, Outline Outline Attached Attached -Granulation Amt None Present (0 None Present (0 %) %) -Granulation Quality N/A N/A -Slough/Fibrin Yes Yes -Necrosis Amt None Present (0 Large (67-100%) %) -Necrotic Tissue Type Adherent Slough Eschar -Texture (Itzel-wound Skin Appearance) Assessed Excoriation Friable -Moisture (Itzel-wound Skin Appearance No Abnormality ) Assessed -Color (Itzel-wound Skin Appearance) Assessed Ecchymosis Erythema -Temperature (Itzel-wound Skin No Abnormality No Abnormality Appearance) (Pt Warm) (Pt Warm) -Tenderness on Palpation (Itzel-wound No No Skin Appearance) -Ulcer Cleansing Wound Cleanser Rinsed/ Irrigated with Saline -Foul Odor after Cleansing No No -Anesthetic Used 4% Lidocaine Solution #14 LEFT LATERAL MALEOLLUS -Combined with other wound No No -Current Size (cm) - Length 1.5 2.6 -Current Size (cm) - Width 1.5 2.4 -Current Size (cm) - Depth 0.1 0.2 -Total Square Cm 2.25 6.24 -Photo Taken No No -Epithelialization None Present Small 1-33% -Tunneling No No -Undermining/Tunneling No No -Circular Undermining No No -Classification - Thickness Full Thickness without Exposed Support Structure -Exudate Amt Small (1-33%) -Exudate Type Serosanguineous -Wound Margin Distinct, Outline Attached -Granulation Amt Medium (34-66%) -Granulation Quality Red -Slough/Fibrin Yes -Necrosis Amt None Present (0 Small (1-33%) %) -Necrotic Tissue Type Adherent Slough -Structure Exposed Fascia Fat Layer Exposed -Texture (Itzel-wound Skin Appearance) Assessed Scarring -Moisture (Itzel-wound Skin Appearance No Abnormality ) Assessed -Color (Itzel-wound Skin Appearance) Assessed Hemosiderin Staining -Temperature (Itzel-wound Skin No Abnormality No Abnormality Appearance) (Pt Warm) (Pt Warm) -Tenderness on Palpation (Itzel-wound No No Skin Appearance) -Ulcer Cleansing Rinsed/ Rinsed/ Irrigated with Irrigated with Saline Saline -Foul Odor after Cleansing No No -Anesthetic Used 5% Lidocaine Gel [Edema Assessment] -Lower Limb Edema Present NA No WC - Nurse 2 - General Ulcer CM Notes Start: 09/17/17 10:41 Freq: Status: Active Protocol: Activity Type Activity Date Activity User E-Sign Co-Sign Detail Recorded Client Recorded Date Recorded By Document 10/03/17 18:12 [id number] 10/03/17 18:39 10/03/17 18:12 Wound Center Nurse 2 [Procedure/Treatment] #17 STAGE III PRESSURE ULCER LEFT LATERAL LE -Time 18:31 -Correct Patient Yes -Correct Side, Site, Position Yes -Correct Procedure Yes -Procedure Performed Yes -Type of Procedure Debridement -Clinical Debridement Muscle -Post Debridement Size (cm) - Length 2.4 -Post Debridement Size (cm) - Width 2.4 -Post Debridement Size (cm) - Depth 0.2 -Total Square Cm 5.76 -Ulcer Cleansing Rinsed/ Irrigated with Saline -Foul Odor after Cleansing No -Bioengineered Tissue No -Topical Lidocaine (%) 5 -Bleeding Controlled with Pressure -Treatment Response Procedure Tolerated Well # 16 STAGE III PRESSURE ULCER LEFT MEDIAL MALLEOLUS -Time 18:30 -Correct Patient Yes -Correct Side, Site, Position Yes -Correct Procedure Yes -Procedure Performed Yes -Type of Procedure Debridement -Clinical Debridement Muscle -Post Debridement Size (cm) - Length 1.8 -Post Debridement Size (cm) - Width 1.8 -Post Debridement Size (cm) - Depth 0.2 -Total Square Cm 3.24 -Wound/Ulcer Outcome Not Healed -Ulcer Cleansing Rinsed/ Irrigated with Saline -Foul Odor after Cleansing No -Bioengineered Tissue No -Topical Lidocaine (%) 5 -Bleeding Controlled with Pressure -Treatment Response Procedure Tolerated Well #15 STAGE III PRESSURE ULCER RIGHT LATERAL GLUTEOUS -Time 18:28 -Correct Patient Yes -Correct Side, Site, Position Yes -Correct Procedure Yes -Procedure Performed Yes -Type of Procedure Debridement -Clinical Debridement Muscle -Post Debridement Size (cm) - Length 9.5 -Post Debridement Size (cm) - Width 10.5 -Post Debridement Size (cm) - Depth 0.6 -Total Square Cm 99.75 -Wound/Ulcer Outcome Not Healed -Ulcer Cleansing Rinsed/ Irrigated with Saline -Foul Odor after Cleansing No -Bioengineered Tissue No -Topical Lidocaine (%) 4 -Bleeding Controlled with Pressure -Treatment Response Procedure Tolerated Well #14 LEFT LATERAL MALEOLLUS -Time 18:28 -Correct Patient Yes -Correct Side, Site, Position Yes -Correct Procedure Yes -Procedure Performed Yes -Type of Procedure Debridement -Clinical Debridement Subcutaneous -Post Debridement Size (cm) - Length 2.7 -Post Debridement Size (cm) - Width 2.5 -Post Debridement Size (cm) - Depth 0.2 -Total Square Cm 6.75 -Wound/Ulcer Outcome Not Healed -Ulcer Cleansing Rinsed/ Irrigated with Saline -Foul Odor after Cleansing No -Bioengineered Tissue Yes -Type of bioengineered Tissue EPIFIX -Expiration Date 06/10/22 -Product Lot Number [id number] -Percent Used 100 -Saline Lot Number [id number] -Topical Lidocaine (%) 5 -Bleeding Controlled with Pressure -Treatment Response Procedure Tolerated Well [See Physician Procedure note for Specifics] Pain Scale: 0-10 Numeric [Pain] -Is Patient Pain Free? Yes Psych/Mental Status: Normal Affect, Appropriate Debridement Note Post-Debridement Measurements/Treatment WC - Nurse 2 - General Ulcer CM Notes Start: 09/17/17 10:41 Freq: Status: Active Protocol: Activity Type Activity Date Activity User E-Sign Co-Sign Detail Recorded Client Recorded Date Recorded By Document 09/17/17 14:25 MW [id number] 09/17/17 14:33 MW Document 09/24/17 15:58 TM [id number] 09/24/17 16:04 TM Document 10/03/17 18:12 TM [id number] 10/03/17 18:39 TM 09/17/17 09/24/17 10/03/17 14:25 15:58 18:12 Wound Center Nurse 2 #17 STAGE III PRESSURE ULCER LEFT LATERAL LE -Time 18:31 -Correct Patient Yes -Correct Side, Site, Position Yes -Correct Procedure Yes -Procedure Performed Yes -Type of Procedure Debridement -Clinical Debridement Muscle -Post Debridement Size (cm) - Length 2.4 -Post Debridement Size (cm) - Width 2.4 -Post Debridement Size (cm) - Depth 0.2 -Total Square Cm 5.76 -Ulcer Cleansing Rinsed/ Irrigated with Saline -Foul Odor after Cleansing No -Bioengineered Tissue No -Topical Lidocaine (%) 5 -Bleeding Controlled with Pressure -Treatment Response Procedure Tolerated Well # 16 STAGE III PRESSURE ULCER LEFT MEDIAL MALLEOLUS -Time 18:30 -Correct Patient Yes -Correct Side, Site, Position Yes -Correct Procedure Yes -Procedure Performed Yes -Type of Procedure Debridement -Clinical Debridement Muscle -Post Debridement Size (cm) - Length 1.8 -Post Debridement Size (cm) - Width 1.8 -Post Debridement Size (cm) - Depth 0.2 -Total Square Cm 3.24 -Wound/Ulcer Outcome Not Healed -Ulcer Cleansing Rinsed/ Irrigated with Saline -Foul Odor after Cleansing No -Bioengineered Tissue No -Topical Lidocaine (%) 5 -Bleeding Controlled with Pressure -Treatment Response Procedure Tolerated Well #15 STAGE III PRESSURE ULCER RIGHT LATERAL GLUTEOUS -Time 18:28 -Correct Patient Yes -Correct Side, Site, Position Yes -Correct Procedure Yes -Procedure Performed Yes -Type of Procedure Debridement -Clinical Debridement Muscle -Post Debridement Size (cm) - Length 9.5 -Post Debridement Size (cm) - Width 10.5 -Post Debridement Size (cm) - Depth 0.6 -Total Square Cm 99.75 -Wound/Ulcer Outcome Not Healed -Ulcer Cleansing Rinsed/ Irrigated with Saline -Foul Odor after Cleansing No -Bioengineered Tissue No -Topical Lidocaine (%) 4 -Bleeding Controlled with Pressure -Treatment Response Procedure Tolerated Well #14 LEFT LATERAL MALEOLLUS -Time 14:29 16:01 18:28 -Correct Patient Yes Yes Yes -Correct Side, Site, Position Yes Yes Yes -Correct Procedure Yes Yes Yes -Procedure Performed Yes Yes Yes -Type of Procedure Debridement Debridement Debridement -Clinical Debridement Subcutaneous Subcutaneous Subcutaneous -Post Debridement Size (cm) - Length 2.7 2.6 2.7 -Post Debridement Size (cm) - Width 1.6 1.1 2.5 -Post Debridement Size (cm) - Depth 0.2 0.2 0.2 -Total Square Cm 4.32 2.86 6.75 -Wound/Ulcer Outcome Not Healed Not Healed Not Healed -Ulcer Cleansing Rinsed/ Rinsed/ Rinsed/ Irrigated with Irrigated with Irrigated with Saline Saline Saline -Foul Odor after Cleansing No No No -Bioengineered Tissue No No Yes -Type of bioengineered Tissue EPIFIX -Expiration Date 06/10/22 -Product Lot Number [id number] -Percent Used 100 -Saline Lot Number [id number] -Topical Lidocaine (%) 4 5 -Bleeding Controlled with Pressure Pressure Pressure -Treatment Response Procedure Procedure Procedure Tolerated Well Tolerated Well Tolerated Well Pain Scale: 0-10 Numeric Is Patient Pain Free? Yes Yes Yes Wound debrided: stage III pressure ulcer left lateral LE Laterality: Left Wound Grade/Stage: stage III Type of Debridement: Excisional debridement Anesthesia Used: 4% Lidocaine Solution Depth: Down to and including healthy tissue, in the subcutaneous layer Percentage of wound debrided: 100 Instrument Used: #15 blade, Forceps Tissue Removed: devitalized tissue, slough Severity: Fat Layer Exposed Amount of bleeding with debridement: Mild Bleeding Controlled with: Compression and gauze Patient tolerated procedure well - Additional Wound Wound debrided: stage III pressure ulcer left medial malleolus Laterality: Left Wound Grade/Stage: stage III Type of Debridement: Excisional debridement Anesthesia Used: 4% Lidocaine Solution Depth: Down to and including healthy tissue, in the subcutaneous layer Percentage of wound debrided: 100 Instrument Used: #15 blade, Forceps Tissue Removed: devitalized tissue, slough Severity: Fat Layer Exposed Amount of bleeding with debridement: Mild Bleeding Controlled with: Compression and gauze Patient tolerated procedure: Patient tolerated procedure well - Additional Wound Wound debrided: stage III pressure ulcer right lateral gluteus Laterality: Right Wound Grade/Stage: stage III Type of Debridement: Excisional debridement Anesthesia Used: 4% Lidocaine Solution Depth: Down to and including healthy tissue, in the subcutaneous layer Percentage of wound debrided: 100 Instrument Used: #15 blade, Forceps Tissue Removed: devitalized tissue, slough Severity: Fat Layer Exposed Amount of bleeding with debridement: Mild Bleeding Controlled with: Compression and gauze Patient tolerated procedure: Patient tolerated procedure well - Additional Wound Wound debrided: left lateral malleolus Laterality: Left Wound Grade/Stage: stage III Type of Debridement: Excisional debridement Anesthesia Used: 4% Lidocaine Solution Depth: Down to and including healthy tissue, in the subcutaneous layer Percentage of wound debrided: 100 Instrument Used: #15 blade, Forceps Tissue Removed: devitalized tissue, slough Severity: Fat Layer Exposed Amount of bleeding with debridement: Mild Bleeding Controlled with: Compression and gauze Patient tolerated procedure: Patient tolerated procedure well Assessment/Plan Active Problems (Last Reviewed 09/24/17 @ 22:20 by Sascha Hadley MD) Stage III pressure ulcer of buttock (Chronic) Stage III pressure ulcer of ankle (Chronic) Pressure ulcer of left leg, stage 3 (Chronic) Type 2 diabetes mellitus with diabetic polyneuropathy (Chronic) Ulcer of left lower extremity with 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) Vascular disease, peripheral (Chronic) 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) Paraplegia (Chronic) Assessment: Left lateral ankle ulcer with resolved MRSA infection; no osteomyelitis (etiology is arterial). Left lateral leg stage III pressure ulcer. left medial ankle ulcer stage III pressure ulcer. Right buttock stage III pressure ulcer. Peripheral vascular disease. Diabetes with neuropathy. Gait impairments with wheelchair Plan: I reviewed and discussed his care plan today. His previous diagnostic data from his most recent hospital admission was also reviewed. Excisional debridement was performed with significant debridement to right buttock wound. The right buttock wound had significant odor and some purulence expressed upon debridement. Flagyl was added to treat for anaerobic bacteria. If no improvement in odor next week will perform wound culture. An xray was ordered to r/o osteomyelitis of the right hip. Epifix was prepared and applied to his left lateral ankle wound per clinical informatics strategist guidelines. Dressing will remain intact x 1 week. Recommended to continue strict offloading of his multiple wounds. He will continue Vancomycin IV as prescribed by ID. Encouraged to continue nutritional protein supplementation as advised. He had abnormal noninvasive vascular studies and a referral was previously provided to see vascular surgery and this has been scheduled. He understands he is at risk for continued limb loss. His left medial malleolus and lower leg and right buttock wounds will be dressed with Aquacel Ag and covered with optifoam to offload pressure. F/U in 1 week.
== END 2017-10-10 23:59 ==
LOC: WC 16:00
PROVIDERS: Family Provider Family Medicine; PCP Family Medicine; Visit Provider Family Medicine
DX: E11.622 Type 2 diabetes mellitus with other skin ulcer (principal); E11.42 Type 2 diabetes mellitus with diabetic polyneuropathy; E11.51 Type 2 diabetes mellitus with diabetic peripheral angiopathy without gangrene; G82.20 Paraplegia, unspecified; R60.0 Localized edema; L89.523 Pressure ulcer of left ankle, stage 3; L89.313 Pressure ulcer of right buttock, stage 3; Z89.611 Acquired absence of right leg above knee
CPT/HCPCS: 11042; 11043; 11046; 15271; 97602; 99214; Q4131; G0463

== ENCOUNTER 2017-12-02 16:23 | Outpatient (RCR) | payer MEDICARE, SELFPAY ==
[2017-12-02 16:40] LABS: Absolute Lymphocyte Count 1.82 X10^3/ul (0.83-4.51); Absolute Neutrophil Count 5.3 X10^3/uL (2.0-7.7); Basophil# 0.04 X10^3/uL; Basophil% 0.5 % (0-1); Eosinophil# 0.89 X10^3/uL; Eosinophils% 10.2 % (0-5); Hematocrit 30.7 % (40-54); Hemoglobin 9.3 g/dl (13.0-16.5); Lymphocyte # 1.82 X10^3/ul (4.0); Lymphocyte % 20.8 % (19-41); Mean Corp Hgb Conc 30.3 g/gl (32-36); Mean Corpuscular Hgb 26.1 pg (27.0-32.0); Mean Platelet Vol. 9.2 fl (6.2-12.0); Monocyte# 0.71 X10^3/uL; Monocyte% 8.1 % (0-10); Neutrophil # 5.25 X10^3/uL (2.7-7.7); Neutrophil % 60.1 % (47-70); Platelet Count 427 K/mm3 (150-450); RBC Distribution Width CV 16.6 % (11.6-14.6); RBC Distribution Width SD 52.7 fl (35.1-43.9); Red Blood Count 3.57 M/mm3 (4.6-6.2); White Blood Count 8.7 K/mm3 (4.4-11.0)
[2017-12-02 16:43] LABS: POSITIVE COUNT NO; POSITIVE DIFFERENTIAL NO; POSITIVE MORPHOLOGY NO
[2017-12-02 16:44] LABS: Creatinine, Serum 1.08 mg/dL (0.70-1.30); EST Glomerular Filtration Rate 71 mL/min (>60); Est Glom Filt Rate - Afr Amer 86 mL/min (>60)
[2017-12-02 16:46] LABS: Vancomycin, Random Level 20.2 ug/mL (0.0-15.0)
== END 2017-12-10 23:59 ==
LOC: HHLAB 16:23
DX: M86.651 Other chronic osteomyelitis, right thigh (principal); B95.62 Methicillin resistant Staphylococcus aureus infection as the cause of diseases classified elsewhere; B96.89 Other specified bacterial agents as the cause of diseases classified elsewhere; B96.1 Klebsiella pneumoniae [K. pneumoniae] as the cause of diseases classified elsewhere; Z47.81 Encounter for orthopedic aftercare following surgical amputation
CPT/HCPCS: 80202; 82565; 85025; 86140

== ENCOUNTER → 2017-12-05 10:52 | Outpatient (CLI) | payer MEDICARE, SELFPAY ==
[2017-12-05 11:13] VITALS: BP 153/74; PULSE 95; RESP 16; O2SAT 98; BMI 22.9
== END ==
PROVIDERS: Family Provider Family Medicine; PCP Family Medicine
DX: Z45.2 Encounter for adjustment and management of vascular access device (principal)
CPT/HCPCS: 36569

== ENCOUNTER → 2017-12-09 17:50 | Outpatient (CLI) | payer MEDICARE, SELFPAY ==
[2017-12-09 18:03] LABS: Absolute Lymphocyte Count 2.05 X10^3/ul (0.83-4.51); Absolute Neutrophil Count 3.6 X10^3/uL (2.0-7.7); Basophil# 0.02 X10^3/uL; Basophil% 0.3 % (0-1); Eosinophil# 0.91 X10^3/uL; Eosinophils% 12.6 % (0-5); Hematocrit 30.8 % (40-54); Hemoglobin 9.4 g/dl (13.0-16.5); Lymphocyte # 2.05 X10^3/ul (4.0); Lymphocyte % 28.4 % (19-41); Mean Corp Hgb Conc 30.5 g/gl (32-36); Mean Corpuscular Hgb 25.8 pg (27.0-32.0); Mean Corpuscular Volume 84.4 fL (80-94); Mean Platelet Vol. 9.1 fl (6.2-12.0); Monocyte# 0.61 X10^3/uL; Monocyte% 8.5 % (0-10); Neutrophil # 3.59 X10^3/uL (2.7-7.7); Neutrophil % 49.8 % (47-70); Platelet Count 392 K/mm3 (150-450); RBC Distribution Width CV 16.3 % (11.6-14.6); RBC Distribution Width SD 50.6 fl (35.1-43.9); Red Blood Count 3.65 M/mm3 (4.6-6.2); White Blood Count 7.2 K/mm3 (4.4-11.0)
[2017-12-09 18:08] LABS: POSITIVE COUNT NO; POSITIVE DIFFERENTIAL NO; POSITIVE MORPHOLOGY NO
[2017-12-09 18:27] LABS: Creatinine, Serum 1.19 mg/dL (0.70-1.30); EST Glomerular Filtration Rate 64 mL/min (>60); Est Glom Filt Rate - Afr Amer 77 mL/min (>60)
[2017-12-09 18:29] LABS: Vancomycin, Trough Level 15.5 ug/mL (5.0-15.0)
== END ==
PROVIDERS: Family Provider Family Medicine; PCP Family Medicine
DX: M86.9 Osteomyelitis, unspecified (principal)
CPT/HCPCS: 80202; 82565; 85025; 86140

== ENCOUNTER 2017-12-23 15:58 | Outpatient (RCR) | payer MEDICARE, SELFPAY ==
[2017-12-16 17:22] LABS: Absolute Neutrophil Count 3.8 X10^3/uL (2.0-7.7); Basophil# 0.02 X10^3/uL; Basophil% 0.3 % (0-1); Eosinophil# 1.05 X10^3/uL; Eosinophils% 13.5 % (0-5); Hematocrit 30.7 % (40-54); Hemoglobin 9.4 g/dl (13.0-16.5); Mean Corp Hgb Conc 30.6 g/gl (32-36); Mean Corpuscular Hgb 25.9 pg (27.0-32.0); Mean Corpuscular Volume 84.6 fL (80-94); Mean Platelet Vol. 9.6 fl (6.2-12.0); Monocyte# 0.78 X10^3/uL; Neutrophil # 3.82 X10^3/uL (2.7-7.7); Neutrophil % 48.9 % (47-70); POSITIVE COUNT NO; POSITIVE DIFFERENTIAL NO; POSITIVE MORPHOLOGY NO; Platelet Count 267 K/mm3 (150-450); RBC Distribution Width CV 16.8 % (11.6-14.6); RBC Distribution Width SD 52.2 fl (35.1-43.9); Red Blood Count 3.63 M/mm3 (4.6-6.2); White Blood Count 7.8 K/mm3 (4.4-11.0)
[2017-12-16 17:30] LABS: Vancomycin, Trough Level 24.6 ug/mL (5.0-15.0)
[2017-12-16 17:32] LABS: Creatinine, Serum 1.26 mg/dL (0.70-1.30); EST Glomerular Filtration Rate 60 mL/min (>60); Est Glom Filt Rate - Afr Amer 72 mL/min (>60)
[2017-12-23 17:27] LABS: Creatinine, Serum 1.48 mg/dL (0.70-1.30); EST Glomerular Filtration Rate 49 mL/min (>60); Est Glom Filt Rate - Afr Amer 60 mL/min (>60)
[2017-12-23 17:28] LABS: Vancomycin, Trough Level 19.5 ug/mL (5.0-15.0)
[2017-12-23 17:33] LABS: Absolute Lymphocyte Count 1.99 X10^3/ul (0.83-4.51); Absolute Neutrophil Count 4.6 X10^3/uL (2.0-7.7); Basophil# 0.02 X10^3/uL; Basophil% 0.2 % (0-1); Eosinophil# 1.32 X10^3/uL; Eosinophils% 14.9 % (0-5); Hematocrit 30.8 % (40-54); Hemoglobin 9.7 g/dl (13.0-16.5); Lymphocyte # 1.99 X10^3/ul (4.0); Lymphocyte % 22.5 % (19-41); Mean Corp Hgb Conc 31.5 g/gl (32-36); Mean Corpuscular Hgb 26.5 pg (27.0-32.0); Mean Corpuscular Volume 84.2 fL (80-94); Monocyte# 0.88 X10^3/uL; Neutrophil % 52.2 % (47-70); Platelet Count 232 K/mm3 (150-450); RBC Distribution Width CV 16.9 % (11.6-14.6); Red Blood Count 3.66 M/mm3 (4.6-6.2); White Blood Count 8.8 K/mm3 (4.4-11.0)
[2017-12-23 17:34] LABS: POSITIVE COUNT NO; POSITIVE DIFFERENTIAL NO; POSITIVE MORPHOLOGY NO
== END 2018-01-09 23:59 ==
LOC: HHLAB 15:58
PROVIDERS: Family Provider Family Medicine; PCP Family Medicine
DX: E11.621 Type 2 diabetes mellitus with foot ulcer (principal); L97.312 Non-pressure chronic ulcer of right ankle with fat layer exposed; E11.69 Type 2 diabetes mellitus with other specified complication; M86.171 Other acute osteomyelitis, right ankle and foot; B95.62 Methicillin resistant Staphylococcus aureus infection as the cause of diseases classified elsewhere; Z51.81 Encounter for therapeutic drug level monitoring
CPT/HCPCS: 80202; 82565; 85025; 86140

== ENCOUNTER → 2018-03-17 14:44 | Outpatient (CLI) | payer MEDICARE, SELFPAY ==
[2018-03-16 14:24] VITALS: BMI 22.9
--- NOTE | 2018-03-17 15:15 | RAD_ITS ---
STUDY: X-RAY - RIGHT HIP REASON FOR EXAM: Male, 72 years old. Paraplegia, right hip ulcer TECHNIQUE: 2 views of the hip. AP pelvis. COMPARISON: None. FINDINGS: Disarticulation of the right hip is new since prior abdomen x-ray of 08/25/2017. There are severe degenerative changes of the left hip. Deformity of the bilateral obturator rings similar since prior CT of 08/21/2017. Penile implants are noted. There are surgical clips of left side of the pelvis. Soft tissue swelling of the right hip identified but no soft tissue gas. RAD/Hip 1 view with Pelvis IMPRESSION: 1. No obvious bony erosion. Right hip soft tissue swelling. 2. Right hip disarticulation/amputation. 3. Chronic and degenerative changes of the pelvis and left hip similar since prior CT of 08/21/2017 Electronically Signed: Truman Perez MD at 8:46 EST , Service support ,
[2018-03-17 16:23] LABS: Absolute Lymphocyte Count 1.59 X10^3/ul (0.83-4.51); Absolute Neutrophil Count 5.4 X10^3/uL (2.0-7.7); Basophil# 0.03 X10^3/uL; Basophil% 0.4 % (0-1); Eosinophil# 0.85 X10^3/uL; Hematocrit 25.5 % (40-54); Hemoglobin 7.6 g/dl (13.0-16.5); Lymphocyte # 1.59 X10^3/ul (4.0); Lymphocyte % 18.7 % (19-41); Mean Corp Hgb Conc 29.8 g/gl (32-36); Mean Corpuscular Hgb 25.3 pg (27.0-32.0); Mean Platelet Vol. 9.6 fl (6.2-12.0); Monocyte# 0.58 X10^3/uL; Monocyte% 6.8 % (0-10); Neutrophil % 63.4 % (47-70); Platelet Count 359 K/mm3 (150-450); RBC Distribution Width CV 16.2 % (11.6-14.6); White Blood Count 8.5 K/mm3 (4.4-11.0)
[2018-03-17 16:27] LABS: POSITIVE COUNT NO; POSITIVE DIFFERENTIAL NO; POSITIVE MORPHOLOGY NO
[2018-03-17 18:20] LABS: ALB/GLOB Ratio 0.4 RATIO (0.9-2.4); AST(SGOT) 23 U/L (15-37); Alanine Aminotransfer ALT/SGPT 50 U/L (16-61); Albumin, Serum 1.9 g/dL (3.2-5.0); Alkaline Phosphatase 154 U/L (45-117); Anion Gap 10 (5-15); BUN 54 mg/dL (7-18); Chloride 110 mmol/L (98-107); Creatinine, Serum 1.59 mg/dL (0.70-1.30); EST Glomerular Filtration Rate 45 mL/min (>60); Est Glom Filt Rate - Afr Amer 55 mL/min (>60); Globulin 4.3 g/dL (2.2-4.2); Glucose 204 mg/dL (74-106); Potassium 6.2 mmol/L (3.5-5.1); Prealbumin 11.7 mg/dL (20.0-40.0); Protein, Total 6.2 g/dL (6.4-8.2); Sodium Level 135 mmol/L (136-145)
== END ==
PROVIDERS: Family Provider Family Medicine; PCP Family Medicine; Referring Provider Surgery; Visit Provider Surgery
DX: L97.929 Non-pressure chronic ulcer of unspecified part of left lower leg with unspecified severity (principal); Z89.621 Acquired absence of right hip joint
CPT/HCPCS: 36415; 73501; 80053; 84134; 85025

== ENCOUNTER 2018-03-20 11:30 | Emergency (ER) | payer MEDICARE, SELFPAY ==
[2018-03-16 14:24] VITALS: BMI 22.9
[2018-03-20 11:32] VITALS: BP 116/68; PULSE 97; RESP 16; TEMP 36.5; O2SAT 100; BMI 23.8
[2018-03-20 11:36] VITALS: BP 166/68; PULSE 90; RESP 16; TEMP 36.5; O2SAT 100
--- NOTE | 2018-03-20 11:59 | EKG12_ITS ---
Test Reason : ABN LABS Blood Pressure : / mmHG Vent. Rate : 090 BPM Atrial Rate : 090 BPM P-R Int : 140 ms QRS Dur : 082 ms QT Int : 344 ms P-R-T Axes : 082 037 072 degrees QTc Int : 420 ms Normal sinus rhythm Normal ECG Confirmed by EROS ALFONSO, PRABHA ([id number]), international editorial producer JAIDEN KRISHNAMURTHY ([id number]) on 03/23/2018 10:12:37 AM Referred By: ASAF Confirmed By:PRABHA COONEY MD
[2018-03-20 12:25] LABS: Basophil# 0.03 X10^3/uL; Basophil% 0.3 % (0-1); Eosinophil# 0.36 X10^3/uL; Eosinophils% 3.3 % (0-5); Hematocrit 22.9 % (40-54); Lymphocyte % 13.9 % (19-41); Mean Corp Hgb Conc 30.6 g/gl (32-36); Mean Corpuscular Hgb 26.2 pg (27.0-32.0); Mean Corpuscular Volume 85.8 fL (80-94); Mean Platelet Vol. 9.2 fl (6.2-12.0); Monocyte# 0.84 X10^3/uL; Monocyte% 7.8 % (0-10); Neutrophil # 7.99 X10^3/uL (2.7-7.7); Neutrophil % 73.8 % (47-70); Platelet Count 397 K/mm3 (150-450); RBC Distribution Width CV 16.4 % (11.6-14.6); RBC Distribution Width SD 49.3 fl (35.1-43.9); Red Blood Count 2.67 M/mm3 (4.6-6.2); White Blood Count 10.8 K/mm3 (4.4-11.0)
[2018-03-20 12:28] LABS: POSITIVE COUNT NO; POSITIVE DIFFERENTIAL NO; POSITIVE MORPHOLOGY NO
[2018-03-20 12:44] LABS: AST(SGOT) 64 U/L (15-37); Alanine Aminotransfer ALT/SGPT 79 U/L (16-61); Albumin, Serum 1.8 g/dL (3.2-5.0); Alkaline Phosphatase 187 U/L (45-117); Anion Gap 9 (5-15); BUN 54 mg/dL (7-18); BUN/Creat Ratio 33.1 RATIO (10-20); Bilirubin, Direct 0.05 mg/dL (0.00-0.30); Calcium,Total 8.9 mg/dL (8.5-10.1); Chloride 112 mmol/L (98-107); Creatinine, Serum 1.63 mg/dL (0.70-1.30); EST Glomerular Filtration Rate 44 mL/min (>60); Est Glom Filt Rate - Afr Amer 53 mL/min (>60); Estimated Creatinine Clearance 42.35 ml/min; Globulin 4.7 g/dL (2.2-4.2); Glucose 144 mg/dL (74-106); Lipase 195 U/L (73-393); Potassium 5.7 mmol/L (3.5-5.1); Protein, Total 6.5 g/dL (6.4-8.2); Sodium Level 135 mmol/L (136-145)
[2018-03-20] MEDS: Ondansetron 4 MG/2 ML Vial IV (13:35)
[2018-03-20] MEDS: 0.9% Normal Saline 1,000 ML 150 ML IV (13:35)
[2018-03-20] MEDS: Acetaminophen 500 MG Tablet 1000 MG PO (13:35)
[2018-03-20 13:36] VITALS: BP 134/72; PULSE 85; RESP 16; O2SAT 100
[2018-03-20 13:47] LABS: Bacteria 0 SEEN /hpf (None Seen); Mucous, Urine 0 SEEN /hpf (<or=2+); Squamous Epithelial Cells - UA 0 SEEN /hpf (0-5)
[2018-03-20 13:49] LABS: Color, Urine Yellow (Yellow); Glucose, Dipstick Normal (Normal); Ketone-Dipstick Negative (Negative); Leukocyte Esterase-Dipstick Negative /ul (Negative); Nitrite-Dipstick Negative (Negative); Occult Blood-Urine 10 /ul (Negative); Protein-Dipstick 30 mg/dl (Negative); Urine Bilirubin Dipstick Negative (Negative); Urine Clarity Clear (Clear); Urine Urobilinogen Normal (Normal)
[2018-03-20 13:56] LABS: White Blood Cells 0-5 SEEN /hpf (0-5)
[2018-03-20 13:57] LABS: Red Blood Cells-Urine 0-5 SEEN /hpf (0-5); Renal Epithelial Cells 0-5 SEEN /hpf (0-5)
[2018-03-20] MEDS: Vancomycin IV 1,000 MG/200 ML BAG 200 MG IV (14:28)
[2018-03-20 15:04] VITALS: BP 120/53
[2018-03-20 16:15] VITALS: BP 149/98; PULSE 87; RESP 18; O2SAT 98
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
--- NOTE | 2018-03-20 16:28 | ED.DEP ---
ED Disposition - Plan for ED Patient: Disposition: Home or Assisted Living Instructions: ED Ulcer Decubitus Prescriptions: Doxycycline 100 mg PO BID #20 capsule Referrals: Angelina Caceres DO [Primary Care Provider] - 3-5 Days Additional Instructions: Follow-up with Wound Center early next week. Return for fever, chills, worsening symptoms, or any other concerns.
--- NOTE | 2018-03-20 16:35 | NURSING ---
CALLED [facility] FOR TRANSPORT HOME. ETA IS 20 TO 25 MIN
== END 2018-03-20 17:00 | disposition home or self-care (01) ==
PROVIDERS: Emergency Provider Emergency Medicine; Family Provider Family Medicine; PCP Family Medicine
DX: L89.219 Pressure ulcer of right hip, unspecified stage (principal); G82.20 Paraplegia, unspecified; Z93.6 Other artificial openings of urinary tract status; Z89.611 Acquired absence of right leg above knee; E11.9 Type 2 diabetes mellitus without complications; I10 Essential (primary) hypertension; Z79.84 Long term (current) use of oral hypoglycemic drugs; Z79.899 Other long term (current) drug therapy
CPT/HCPCS: 80048; 80076; 81001; 82274; 83690; 85025; 87040; 93005; 96361; 96365; 96367; 96375; 99285; J7030; J7040; J2405

== ENCOUNTER → 2018-03-25 08:10 | Outpatient (CLI) | payer MEDICARE, SELFPAY ==
[2018-03-24 10:14] VITALS: BMI 23.8
[2018-03-25] VITALS (12 sets, daily range): BP systolic 105–144; BP diastolic 47–67; PULSE 86–95; RESP 16–18; TEMP 36.3–36.9; O2SAT 97–100; BMI 24.2
== END ==
PROVIDERS: Family Provider Family Medicine; PCP Family Medicine; Referring Provider Family Medicine; Visit Provider Family Medicine
DX: D50.9 Iron deficiency anemia, unspecified (principal)
CPT/HCPCS: 36430; 86850; 86900; 86920; 86922; J7040; P9016; A4216

== ENCOUNTER → 2018-03-27 10:58 | Outpatient (CLI) | payer MEDICARE, SELFPAY ==
[2018-03-25 09:00] VITALS: BMI 24.2
[2018-03-27 11:07] VITALS: BP 116/60; PULSE 102; RESP 16; TEMP 36.2; O2SAT 100; BMI 23.8
== END ==
PROVIDERS: Family Provider Family Medicine; PCP Family Medicine; Referring Provider Family Medicine; Visit Provider Family Medicine
DX: K90.9 Intestinal malabsorption, unspecified (principal); D50.9 Iron deficiency anemia, unspecified
CPT/HCPCS: 96365; J1756; J7050; A4216

== ENCOUNTER 2018-03-30 15:00 | Outpatient (RCR) | payer MEDICARE, SELFPAY ==
[2017-10-11 01:02] VITALS: BP 136/63; PULSE 107; RESP 18; TEMP 36
[2017-12-05 11:13] VITALS: BMI 22.9
[2018-03-16 14:24] VITALS: BP 98/64; PULSE 93; RESP 18; TEMP 35.7; BMI 22.9
[2018-03-16 14:46] LABS: Bedside Glucose 150 mg/dL (70-110)
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
[2018-03-17 17:16] LABS: M R Staph aureus DNA By PCR POSITIVE (Negative); Probe Check PASS; Staph aureus DNA By PCR POSITIVE (Negative)
[2018-03-23 15:03] VITALS: BP 69/37; PULSE 119; RESP 16; TEMP 36; BMI 22.9
[2018-03-23 15:17] LABS: Bedside Glucose 167 mg/dL (70-110)
--- NOTE | 2018-03-23 15:44 | PCM.WC.HP ---
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 Caceres, was notified. Patient was informed to follow-up with his primary care physician in terms of management of his pre-existing medical problems. Since this patient was seen 1 week ago, he was evaluated in the Emergency Department at [facility] on March 20, 2018. He presented with headache, shortness of breath, and anemia. Labs were repeated, with results as follows: White blood count 10.8, hemoglobin 7.0, hematocrit 22.9, platelets 397,000, sodium 135, potassium 5.7, chloride 112, BUN 54, creatinine 1.63, glucose 144, globin A1c 8.5, calcium 8.9, total protein 6.5, albumin 1.8. An x-ray of the right hip, performed on March 17, 2018, revealed chronic degenerative changes, but no obvious bony erosion. Soft tissue swelling of the right hip was noted. Plan: I reviewed and discussed his care plan today. It has been recommended to the patient, and his caregivers, that he be repositioned hourly. It appears as though he has proper cushioning on his wheelchair in his bed. The patient is to remain on doxycycline 100 mg p.o. twice daily until completion. With respect to the tunneled wound, we are to continue the use of Aquacel silver rope, which will be changed daily. Elsewhere, collagenase Santyl will be used topically on wounds/ulcerations of the left lower extremity. The patient has once again been advised to collaborate with his primary care physician in terms of his other medical problems and abnormal laboratory results. We are to seek consultation with Dr. 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 A noninvasive lower extremity arterial study will be performed of the left lower extremity to assess the patient's arterial status. We are to recruit the assistance of home health nursing care to assure proper management in the home environment. The patient has been advised to optimize his nutritional intake. Nutritional supplements such as Alan have been recommended. Optimization of his glycemic status has also been recommended. The patient is to return in 1 week for reassessment. Overall, considering the patient's multiple pre-existing medical problems, prognosis would be judged to be poor. Patient weighs 171 pounds. His height is 5 feet 10 inches tall. His BMI is 24.5, which may be inaccurate due to the patient's lower extremity amputation. He appears to be obese, and optimizing his weight has been recommended. The patient is not a smoker. Influenza vaccine was not administered today.
[2018-03-30 16:08] VITALS: BP 112/59; PULSE 102; RESP 16; TEMP 35.9; BMI 22.9
--- NOTE | 2018-03-30 17:18 | PCM.WC.HP ---
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 layer Percentage of wound debrided: 100 Instrument Used: 5mm curette Severity: Fat Layer Exposed Amount of bleeding with debridement: Mild Bleeding Controlled with: Compression and gauze Patient tolerated procedure well - Additional Wound Laterality: Left - Lower extremity, multiple ulcerations of the lateral calf and left lateral malleolus Type of Debridement: Excisional debridement Anesthesia Used: 5% Lidocaine Gel Depth: Down to and including healthy tissue, in the subcutaneous layer, to muscle Percentage of wound debrided: 100 Instrument Used: 5mm curette Severity: Fat Layer Exposed Amount of bleeding with debridement: Mild Bleeding Controlled with: Compression and gauze Patient tolerated procedure: Patient tolerated procedure well Assessment/Plan Active Problems (Last Reviewed 09/24/17 @ 22:20 by Sascha Hadley MD) Stage III pressure ulcer of ankle (Chronic) Pressure ulcer of left leg, stage 3 (Chronic) Debility (Chronic) Pressure ulcer of right hip, stage 3 (Chronic) Pressure ulcer of left leg, stage 3 (Chronic) Obesity (Chronic) Renal insufficiency (Chronic) Anemia (Chronic) 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) Ulcer of left lower extremity with 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) Malnutrition (Chronic) 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 He has a right above-knee amputation near hip level, and has recently undergone excision of underlying bone in the right hip due to osteomyelitis, with a flap reconstruction of the area. Unfortunately, this has failed to heal appropriately. He presented with several pressure ulcerations in this area, and a tunneled wound which is infected, and cultures are positive for MRSA. The patient has been started on doxycycline 100 mg p.o. twice daily. It appears as though the patient is not being repositioned as frequently as necessary, which has resulted in his current pressure ulcerations, which appeared to be stage III in nature. Furthermore, the battery of diagnostic laboratory studies have been performed, and a number of abnormalities were noted initially. Renal function is impaired. The patient is profoundly anemic. He was also noted to be hyperkalemic. He appears to be malnourished. The patient's primary care physician, Dr. Caceres, was notified. Patient was informed to follow-up with his primary care physician in terms of management of his pre-existing medical problems. Dr. Caceres has intervened, and the patient received 3 units of packed red blood cells last week in response to his anemia. He remains under the care of Dr. Caceres with regard to his multiple pre-existing medical problems. An x-ray of the right hip, performed on March 17, 2018, revealed chronic degenerative changes, but no obvious bony erosion. Soft tissue swelling of the right hip was noted. Plan: I reviewed and discussed his care plan today. It has been recommended to the patient, and his caregivers, that he be repositioned hourly. Efforts are underway to procure an electrical bed for assistance with repositioning, and a low air-loss mattress for offloading purposes. The patient is to remain on doxycycline 100 mg p.o. twice daily until completion. With respect to the tunneled wound, we are to continue the use of Aquacel silver rope, which will be changed daily. The patient has an appointment with Dr. Morgan Lutz, plastic surgeon, for evaluation and recommendations with regard to the patient's right hip tunneled wound. Elsewhere, collagenase Santyl will be used topically on wounds/ulcerations of the left lower extremity. The patient has once again been advised to collaborate with his primary care physician in terms of his other medical problems and abnormal laboratory results. A noninvasive lower extremity arterial study will be performed of the left lower extremity to assess the patient's arterial status. The patient missed his recent appointment for this purpose, though it will be rescheduled. We are to recruit the assistance of home health nursing care to assure proper management in the home environment. The patient has been advised to optimize his nutritional intake. Nutritional supplements such as Alan have been recommended. Optimization of his glycemic status has also been recommended. The patient is to return in 1 week for reassessment. Overall, considering the patient's multiple pre-existing medical problems, prognosis would be judged to be poor. The patient now has additional pressure ulcerations, located on the posterior scrotum and on his left ischium. The multiple ulcerations of the left lower extremity, and the depth of several of these which seem to extend to tendon and possible of the joint space of the left ankle, portend a poor prognosis. I have had initial discussions with the patient regarding the option of left lower extremity amputation. While extreme, the patient is paraplegic, and does not use his left lower extremity for any purpose related to mobility, repositioning, or transitioning from bed to chair. Under optimal circumstances, it will take many months to heal the wounds/ulcerations of the left lower extremity. An amputation of the left lower extremity would rid the patient of an unused limb, and eliminate many of the wounds which will likely require long-term management. At initial discussion, the patient appeared somewhat conflicted about this option, which will be considered and discussed at future visits. The patient's other participating medical providers will be queried as to their input in this regard. Patient weighs 171 pounds. His height is 5 feet 10 inches tall. His BMI is 24.5, which may be inaccurate due to the patient's lower extremity amputation. He appears to be obese, and optimizing his weight has been recommended. The patient is not a smoker. Influenza vaccine was not administered today.
== END 2018-04-09 23:59 ==
LOC: WC 15:00
PROVIDERS: Family Provider Family Medicine; PCP Family Medicine; Visit Provider Surgery
DX: E11.622 Type 2 diabetes mellitus with other skin ulcer (principal); L89.893 Pressure ulcer of other site, stage 3; L89.213 Pressure ulcer of right hip, stage 3; L89.223 Pressure ulcer of left hip, stage 3; L89.523 Pressure ulcer of left ankle, stage 3; E11.42 Type 2 diabetes mellitus with diabetic polyneuropathy; E78.5 Hyperlipidemia, unspecified; I12.9 Hypertensive chronic kidney disease with stage 1 through stage 4 chronic kidney disease, or unspecified chronic kidney disease; N18.9 Chronic kidney disease, unspecified; E03.9 Hypothyroidism, unspecified; G83.9 Paralytic syndrome, unspecified; Z79.899 Other long term (current) drug therapy; Z79.84 Long term (current) use of oral hypoglycemic drugs; Z89.611 Acquired absence of right leg above knee
CPT/HCPCS: 11042; 11045; 82962; 87070; 87075; 87077; 87186; 87205; 87640; 97602; 99214; G0463

== ENCOUNTER → 2018-04-09 14:30 | Outpatient (CLI) | payer MEDICARE, SELFPAY ==
[2018-03-30 16:08] VITALS: BMI 22.9
[2018-04-09 14:48] VITALS: BP 86/49; PULSE 90; RESP 16; TEMP 36.7; BMI 24.5
[2018-04-09 15:33] VITALS: BP 94/64; PULSE 90
== END ==
PROVIDERS: Family Provider Family Medicine; PCP Family Medicine; Referring Provider Family Medicine; Visit Provider Family Medicine
DX: D50.9 Iron deficiency anemia, unspecified (principal); K90.9 Intestinal malabsorption, unspecified
CPT/HCPCS: 96365; J1756; J7050; A4216

== ENCOUNTER 2018-04-13 11:04 | Outpatient (RCR) | payer MEDICARE, SELFPAY ==
[2018-04-10 00:14] VITALS: BP 112/59; PULSE 102; RESP 16; TEMP 35.9; BMI 22.9
[2018-04-13 11:57] VITALS: BP 115/53; PULSE 122; RESP 18; TEMP 36.5; BMI 22.9
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
== END 2018-05-10 23:59 ==
LOC: WC 11:04
PROVIDERS: Family Provider Family Medicine; PCP Family Medicine; Visit Provider Surgery
DX: E11.622 Type 2 diabetes mellitus with other skin ulcer (principal); E11.51 Type 2 diabetes mellitus with diabetic peripheral angiopathy without gangrene; Z89.611 Acquired absence of right leg above knee; E78.5 Hyperlipidemia, unspecified; L89.893 Pressure ulcer of other site, stage 3; L89.213 Pressure ulcer of right hip, stage 3; L89.223 Pressure ulcer of left hip, stage 3; L89.523 Pressure ulcer of left ankle, stage 3; E11.42 Type 2 diabetes mellitus with diabetic polyneuropathy; I12.9 Hypertensive chronic kidney disease with stage 1 through stage 4 chronic kidney disease, or unspecified chronic kidney disease; N18.9 Chronic kidney disease, unspecified; G82.20 Paraplegia, unspecified; E03.9 Hypothyroidism, unspecified; Z79.899 Other long term (current) drug therapy; Z79.84 Long term (current) use of oral hypoglycemic drugs; B95.62 Methicillin resistant Staphylococcus aureus infection as the cause of diseases classified elsewhere
CPT/HCPCS: 99215; G0463

== ENCOUNTER 2018-04-21 15:27 | Inpatient (IN) | payer MEDICARE, SELFPAY ==
[2018-04-21] VITALS (7 sets, daily range): BP systolic 111–155; BP diastolic 48–98; PULSE 73–106; RESP 15–18; TEMP 36.1–36.8; O2SAT 95–100; BMI 24.5; BMI 21.7
--- NOTE | 2018-04-21 16:30 | ED.RN ---
PT ALSO REPORTS WOUNDS ON LEFT LEG. PT BEING TX AT THE WOUND CENTER. PT HAS UROSTOMY AND OSTOMY WITH DRAINAGE BAGS IN PLACE.
--- NOTE | 2018-04-21 16:38 | RAD_ITS ---
STUDY: X-RAY - RIGHT HIP REASON FOR EXAM: Male, 72 years old. Right hip wound with drainage TECHNIQUE: 2 views of the hip. COMPARISON: Multiple priors. FINDINGS: There has been a previous right hip amputation. There is significant soft tissue edema overlying the right acetabular region. There is air within the soft tissues Stable old deformities of the obturator rings. There are significant degenerative changes left hip seen on one view. There are benign soft tissue calcifications. There are multiple vascular calcifications in the pelvis. There is a penile prosthesis. RAD/Hip 1 view with Pelvis IMPRESSION: Previous right hip amputation, significant soft tissue edema, air in the soft tissues likely infectious/inflammatory. Further evaluation with MRI could be performed to exclude osteomyelitis if clinically warranted Stable deformities of the obturator rings Significant degenerative changes left hip Penile prosthesis Electronically Signed: Marco A Teixeira, at 17:53 EDT Tel , Service support ,
[2018-04-21 16:45] LABS: Absolute Lymphocyte Count 1.56 X10^3/ul (0.83-4.51); Absolute Neutrophil Count 4.6 X10^3/uL (2.0-7.7); Basophil# 0.02 X10^3/uL; Basophil% 0.3 % (0-1); Eosinophil# 0.65 X10^3/uL; Eosinophils% 8.6 % (0-5); Hematocrit 32.3 % (40-54); Hemoglobin 9.7 g/dl (13.0-16.5); Lymphocyte # 1.56 X10^3/ul (4.0); Lymphocyte % 20.7 % (19-41); Mean Corpuscular Hgb 26.6 pg (27.0-32.0); Mean Corpuscular Volume 88.5 fL (80-94); Mean Platelet Vol. 9.5 fl (6.2-12.0); Monocyte# 0.63 X10^3/uL; Monocyte% 8.4 % (0-10); Neutrophil # 4.64 X10^3/uL (2.7-7.7); Neutrophil % 61.5 % (47-70); Platelet Count 331 K/mm3 (150-450); RBC Distribution Width CV 15.9 % (11.6-14.6); RBC Distribution Width SD 50.6 fl (35.1-43.9); Red Blood Count 3.65 M/mm3 (4.6-6.2); White Blood Count 7.5 K/mm3 (4.4-11.0)
[2018-04-21 16:50] LABS: Anion Gap 10 (5-15); BUN 65 mg/dL (7-18); BUN/Creat Ratio 45.5 RATIO (10-20); Calcium,Total 9.2 mg/dL (8.5-10.1); Chloride 111 mmol/L (98-107); Creatinine, Serum 1.43 mg/dL (0.70-1.30); EST Glomerular Filtration Rate 51 mL/min (>60); Est Glom Filt Rate - Afr Amer 62 mL/min (>60); Estimated Creatinine Clearance 46.79 ml/min; Glucose 160 mg/dL (74-106); Potassium 5.2 mmol/L (3.5-5.1); Sodium Level 138 mmol/L (136-145)
[2018-04-21 16:56] LABS: POSITIVE COUNT NO; POSITIVE DIFFERENTIAL NO; POSITIVE MORPHOLOGY NO
[2018-04-21 18:03] LABS: Probe Check PASS; Staph aureus DNA By PCR POSITIVE (Negative)
[2018-04-21 18:05] LABS: M R Staph aureus DNA By PCR POSITIVE (Negative)
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
[2018-04-21 21:49] LABS: Magnesium 1.4 mg/dL (1.6-2.6)
[2018-04-21] MEDS: 0.9% Normal Saline 1,000 ML 100 ML IV (23:26)
[2018-04-22] VITALS (20 sets, daily range): BP systolic 83–138; BP diastolic 47–68; PULSE 73–96; RESP 16–18; TEMP 35.7–36.9; O2SAT 94–100; BMI 21.6; BMI 21.7
[2018-04-22] MEDS: Acetaminophen 325 MG Tablet 650 MG PO ×3 (00:11→18:45)
[2018-04-22] MEDS: Glucerna Shake 120 ML LIQUID PO ×3 (00:42→21:56)
[2018-04-22] MEDS: Heparin Injection (Vial) 5,000 UNIT/ML VIAL 5000 UNIT SC ×2 (00:43→21:41)
[2018-04-22] MEDS: Insulin Lispro 100 UNIT/ML INSULN.PEN SC ×3 (00:43→21:43)
[2018-04-22] MEDS: Pravastatin 40 MG Tablet PO ×2 (00:44→21:41)
[2018-04-22] MEDS: Gabapentin 300 MG Capsule PO ×3 (00:45→21:43)
[2018-04-22] MEDS: Metoprolol Tartrate 25 MG Tablet 12.5 MG PO ×3 (00:45→21:41)
[2018-04-22 01:06] LABS: Bedside Glucose 215 mg/dL (70-110)
--- NOTE | 2018-04-22 01:50 | PCM.RX.CS ---
Consult Pharmacy has been consulted to manage selected antiobiotic: Vancomycin Type of Consult: New start Suspected Infection: Skin/Soft tissue Prior Doses of Antibiotics Received/Current Regimen: Medications Vancomycin HCl 750 mg/ Sodium (Chloride) 265 mls @ 250 mls/hr IV Q24H BITA Discontinued Medications Vancomycin HCl 1,250 mg/ (Sodium Chloride) 275 mls @ 167 mls/hr IV X1 ONE Stop: 04/21/18 20:58 Last Admin: 04/21/18 20:13 Dose: 167 mls/hr Labs: Sodium 138 mmol/L (136-145) 04/21/18 16:15 Potassium 5.2 mmol/L (3.5-5.1) H 04/21/18 16:15 Chloride 111 mmol/L (98-107) H 04/21/18 16:15 Carbon Dioxide 17.0 mmol/L (21.0-32.0) L 04/21/18 16:15 Anion Gap 10 (5-15) 04/21/18 16:15 BUN 65 mg/dL (7-18) H 04/21/18 16:15 Creatinine 1.43 mg/dL (0.70-1.30) H 04/21/18 16:15 Est GFR (MDRD) Af Amer 62 mL/min (>60) 04/21/18 16:15 Est GFR (MDRD) Non-Af 51 mL/min (>60) L 04/21/18 16:15 BUN/Creatinine Ratio 45.5 RATIO (10-20) H 04/21/18 16:15 Glucose 160 mg/dL (74-106) H 04/21/18 16:15 Weight used for dosin kg Estimated Creatinine Clearance: 47 Goal Trough: 10-15 mcg/mL Pharmacy Plan for Drug Dosing: Pharmacy Service will continue to monitor and adjust dosing as required. Follow-Up Labs: Trough Vancomycin Labs to be done on [date and time ordered]: 04/23/18 @1930
--- NOTE | 2018-04-22 05:00 | EKG12_ITS ---
Test Reason : PRE-OP Blood Pressure : / mmHG Vent. Rate : 082 BPM Atrial Rate : 082 BPM P-R Int : 154 ms QRS Dur : 074 ms QT Int : 364 ms P-R-T Axes : 074 002 025 degrees QTc Int : 425 ms Normal sinus rhythm Normal ECG When compared with ECG of 20-MAR-2018 12:12, No significant change was found Confirmed by EROS ALFONSO, PRABHA ([id number]), editor magazine VIKRAM CRANE ([id number]) on 05/01/2018 9:46:57 AM Referred By: Colleen Chan Confirmed By:PRABHA COONEY MD
[2018-04-22 05:55] LABS: International Normalized Ratio 1.3; Prothrombin Time (Protime)PT. 15.5 SECONDS (11.7-14.9)
[2018-04-22 05:56] LABS: Partial Thromboplast Time 41.2 Seconds (24.1-36.2)
[2018-04-22 06:24] LABS: Absolute Lymphocyte Count 1.15 X10^3/ul (0.83-4.51); Absolute Neutrophil Count 4.6 X10^3/uL (2.0-7.7); Basophil# 0.02 X10^3/uL; Basophil% 0.3 % (0-1); Eosinophil# 0.79 X10^3/uL; Eosinophils% 10.8 % (0-5); Hematocrit 28.9 % (40-54); Hemoglobin 8.7 g/dl (13.0-16.5); Lymphocyte # 1.15 X10^3/ul (4.0); Lymphocyte % 15.7 % (19-41); Mean Corp Hgb Conc 30.1 g/gl (32-36); Mean Corpuscular Hgb 26.6 pg (27.0-32.0); Mean Corpuscular Volume 88.4 fL (80-94); Mean Platelet Vol. 9.6 fl (6.2-12.0); Monocyte# 0.67 X10^3/uL; Monocyte% 9.2 % (0-10); Neutrophil # 4.62 X10^3/uL (2.7-7.7); Neutrophil % 63.2 % (47-70); Platelet Count 290 K/mm3 (150-450); RBC Distribution Width SD 49.9 fl (35.1-43.9); Red Blood Count 3.27 M/mm3 (4.6-6.2); White Blood Count 7.3 K/mm3 (4.4-11.0)
[2018-04-22 06:25] LABS: Erythrocyte Sedimentation Rate 121 mm/hr (0-20); POSITIVE COUNT NO; POSITIVE DIFFERENTIAL NO; POSITIVE MORPHOLOGY NO
[2018-04-22] MEDS: Levothyroxine 25 MCG TABLET PO (06:25)
[2018-04-22 06:55] LABS: Bedside Glucose 265 mg/dL (70-110)
[2018-04-22 07:03] LABS: Anion Gap 10 (5-15); BUN 57 mg/dL (7-18); BUN/Creat Ratio 38.3 RATIO (10-20); Calcium,Total 8.5 mg/dL (8.5-10.1); Chloride 114 mmol/L (98-107); Creatinine, Serum 1.49 mg/dL (0.70-1.30); EST Glomerular Filtration Rate 49 mL/min (>60); Est Glom Filt Rate - Afr Amer 59 mL/min (>60); Estimated Creatinine Clearance 42.17 ml/min; Glucose 247 mg/dL (74-106); Potassium 4.9 mmol/L (3.5-5.1); Prealbumin 12.2 mg/dL (20.0-40.0); Sodium Level 141 mmol/L (136-145); Thyroid Stim Hormone (TSH) 1.97 uIU/mL (0.358-3.74)
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
--- NOTE | 2018-04-22 08:00 | MRI_ITS ---
STUDY: MR PELVIS WITHOUT CONTRAST REASON FOR EXAM: Paraplegic with open wounds right lateral hip and posterior buttocks, debridement 5 months ago with gluteal flaps and bone resection. TECHNIQUE: Standardized fat and water weighted pulse sequences were obtained in all 3 orthogonal planes. COMPARISON: Radiographs 04/21/2018. FINDINGS: There is disarticulation of the right hip. There is bone edema of the right superior and posterior acetabulum (T2 axial images 21-27; inversion recovery coronal images 12-16) with corresponding decreased T1 bone marrow signal (T1 axial images 21-27) suggestive of osteomyelitis. There are no other foci of bone edema of the pelvis. There is mild bone edema in the left greater trochanter (T2 axial images 28-30) without corresponding decreased T1 bone marrow signal and therefore likely reactive rather than osteomyelitis. There is chronic deformity of the inferior pubic rami and ischial tuberosities. There is edema in the musculature adjacent to the right hemipelvis with small pockets of fluid (inversion recovery coronal images 12-14), the largest fluid collection measuring 2.6 cm in transverse dimension. Since there is an overlying ulceration and small pockets of gas in the right gluteal soft tissues (T1 axial images 19-23), these are worrisome for small abscesses. There is also edema in the left gluteal musculature (inversion recovery coronal images 7-18) without an adjacent discrete fluid collection. There is fusion of the sacroiliac joints, sparing only the superior aspect (inversion recovery coronal images 10-12). There is artifact from a penile implant. MRI/Pelvis (Routine) IMPRESSION: Bone edema of the right acetabulum suggestive of osteomyelitis. Edema in the muscular structure adjacent to the right hemipelvis with small pockets of fluid with pockets of gas, worrisome for small abscesses. Edema in the left gluteal musculature, likely postoperative with reactive bone edema of the left greater trochanter. Electronically Signed: Will Guzman MD at 11:38 EDT Tel , Service support ,
[2018-04-22 08:14] LABS: Hemoglobin A1c 7.2 % (4.2-6.3)
--- NOTE | 2018-04-22 09:18 | NURSING ---
the urostomy and colostomy appliance were changes. pt uses disposable colostomy appliances at home. pt switched over to a 2 piece Destini flat appliance. pt had a moderate amount of formed brown stool. applied a 1 piece Convex Destini urostomy appliance and hooked to a Lozano back. peristomal skin is intact to both stomas. pt tolerated well. Dr Lutz and Dr Aguilar had been in to assess wounds with this nurse as well. see wound intervention and wound photos.
--- NOTE | 2018-04-22 09:45 | NURSING ---
wound photo: right hip
--- NOTE | 2018-04-22 09:46 | NURSING ---
wound photo: left hip
--- NOTE | 2018-04-22 09:47 | NURSING ---
wound photo: left lateral lower leg/foot
--- NOTE | 2018-04-22 11:07 | CASEMGMT ---
RN CM Note: unable to complete assessment. Pt is in surgery. Radhames PEDROZA CM
[2018-04-22] MEDS: 0.9% NaCl Peripheral Flush Adult/Peds IV (11:12)
[2018-04-22 11:20] LABS: Bedside Glucose 173 mg/dL (70-110)
[2018-04-22] MEDS: Pantoprazole Sodium 40 MG Tablet PO (11:22)
--- NOTE | 2018-04-22 12:17 | PCM.PN.BLA ---
Progress Note DATE OF PREVIOUS WOUND CARE CENTER CONSULTATION - April 13, 2018. Patient is known to me as I recently saw him at the Wound Center on April 13, 2018. He had a superficial ulcer on his right hip disarticulation that was being treated with Silver dressing changes. He was finishing up Doxycycline for a recent MRSA culture. He had a right hip disarticulation and muscle flap reconstruction in the Fall in [place]. I initially addressed the multiple ulcerations on his left lower extremity with osteomyelitis in the ankle for amputation. I was setting him up for a Vascular evaluation on the left because of a noninvasive arterial Doppler study in 09/27 which showed significant ilio-femoral disease making amputation surgery problematic. The evaluation was to determine the need for a stent or angioplasty in the ilio-femoral area that would improve blood flow to the left leg amputation site to maximize healing. After the left leg amputation has healed, would then address the ulceration on his right hip disarticulation with debridement and partial ostectomy for osteomyelitis. Would begin the VAC postop and depending on the healing and the extent of the debridement, if further complex surgery was warranted such as a partial pelvectomy for osteomyelitis and muscle flaps reconstruction, then he would need to be evaluated back at the tertiary center in [place] where the hip disarticulation was done. However he recently noted increasing purulent drainage coming from his right hip ulcerations which have significantly worsened in the last few days. So he was admitted to the hospital last night and started on IV Vancomycin and Zosyn. WBC was 7.3 this morning. Hgb was 8.7. BUN/Creat was 57/1.49. HgbA1c was 7.2. ESR was 121. CRP was 105. Prealbumin was 12.2. MRSA DNA by PCR was positive. MRI Pelvis was done this morning and was suspicious for osteomyelitis in the acetabulum. On exam, there was copious amounts of pus coming from two ulcers, one on the right hip disarticulation area and one more medially on the right ischial area. They have a depth of 4 cm. I anticipate bony involvement. Patient needs urgent operative intervention today with incision and drainage and excision of the MRSA abscesses in the right hip disarticulation and right ischial pressure sores with partial ostectomy for osteomyelitis. Postop will begin wound care with the VAC. His Hgb was 8.7. I will type and cross for PRBC because of the anticipated blood loss from the surgery that would necessitate transfusion. Patient will need a PICC line for termite inspector IV antibiotics. His Prealbumin was 12.2. Encourage nutritional supplementation with protein to help the healing process. While he is recovering from this urgent surgery, may repeat the noninvasive arterial Doppler study on the left to further evaluate his left leg issues. Patient understands that no vascular procedure will be done until the infection right hip has been adequately treated. Patient was informed of the risks and complications of the procedure including alternatives to surgery. These were discussed with the patient personally. Patient voices understanding and wishes to proceed. Code Visit Inpatient E&M: 81755 Subs Hosp L3 - -57 Modifier L02.415, Z89.621, A49.02, L89.314, M86.9, E11.9, I73.9, L97.922, G82.20
--- NOTE | 2018-04-22 12:50 | NURSING ---
Dr. Looney office is currently closed.
--- NOTE | 2018-04-22 14:00 | HIP_PTH ---
PATIENT: LUIS CEDILLO LOC: MS2 U#:[id number] AGE/SX: 72/M ROOM: [facility] RE04/21/[address]: Dr. Mary Islas MD : 1945 BED: 1 DIS: 05/01/2018 SPEC #: [id number] RECD: 04/23/18 07:22 STATUS: ACE REDenzel #: [id number] CLIFFORD: 04/22/18 14:[address]: Luis Lutz DEPT: SURGICAL PATHOLOGY RECD BY: Evie Engel ENTERED: 04/23/18 14:44 SP TYPE: TOTAL HIP OTHR DR: MD Dr. Mau Dent MD Dr. Lisa Malys, DO Dr. Robert Leininger, MD Tissues: A - Hip, NOS B - TISSUE SURGICALLY REMOVED C - Ischium, NOS D - Ischium, NOS Procedures: PAS Fungus (control) Decalcification bone/plaque Special Stain Group I Surgery Specimen Level III AFB Stain (control) HEADER OPERATION: I & D, debridement, excision, pressure sore, partial ostectomy PRE-OP DIAGNOSIS: Infected pressure ulcer, right buttocks TISSUE SUBMITTED: A - Right hip disarticulation bone (acetabulum), B - Right hip disarticulation tissue, C - Right hip ischium bone, D - Right hip ischium tissue MICROSCOPIC DIAGNOSIS A. Right hip bone: Pieces of bone with acute and chronic osteomyelitis. B. Right hip soft tissue: Pieces of skin with underlying tissue with ulceration, acute and chronic inflammation, granulation tissue reaction and abscess formation. Special stains for acid fast bacilli and fungi are negative for organisms; matched controls are appropriate. C. Bone right ischium: Pieces of skin with underlying tissue with ulceration, acute and chronic inflammation and granulation tissue reaction. A piece of bone, negative for acute osteomyelitis. D. Tissue right ischium: Pieces of bone, negative for acute osteomyelitis. SJ:eda 04/29/18 MICROSCOPIC DESCRIPTION Slides are reviewed. GROSS DESCRIPTION A - Received in fixative is one container labeled with the patient's name and designated bone right hip. The specimen consists of multiple irregular fragments of duncan bone that in aggregate measure 2.5 x 2.5 x 0.2 cm. The specimen is submitted in its entirety in one cassette after decalcification. B - Received in fixative is one container labeled with the patient's name and designated right hip disarticulation. The specimen consists of six fragments of duncan tissue ranging in size from 1.5 to 11 cm. The two larger fragments contain ellipses of pink-duncan skin. The larger fragment contains skin with partially healed ulcer measuring 8 cm and an adjacent area of possible dehiscences with ulceration measuring 3.5 cm in greatest dimension. Serial sections do not reveal mass lesions. Sponge Fisherman sections are submitted in four cassettes. C - Received in fixative is one container labeled with the patient's name and designated bone right ischium. The specimen consists of two irregular fragments of skin with attached soft tissue that in aggregate measure 7 x 4 cm and depth of excision measuring 6 cm. One fragment contains a cutaneous ulcer measuring 2 cm in greatest dimension. Serial sections do not reveal mass lesions. An irregular fragment of duncan bone is adherent to one of the larger fragments measuring 2 x 0.8 x 0.2 cm. Sponge Fisherman sections are submitted in two cassettes as follows: 1 - soft tissue, 2 - bone after decalcification. D - Received in fixative is one container labeled with the patient's name and designated tissue right ischium. The specimen consists of multiple irregular fragments of duncan bone that in aggregate measure 2.5 x 2 x 0.2 cm. The specimen is submitted in its entirety in one cassette after decalcification. / AM:eda 04/23/18 TC:2 CPT: 16291 x4, 93634 x3, 21396 x2
--- NOTE | 2018-04-22 14:08 | CASEMGMT ---
Insurance call to [employer], spoke with [employer] for [facility] facilities: Pt has HMO limited Network for transfer availability. [facility], [facility], [facility], [facility]. Radhames IYERN RN ACM
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
--- NOTE | 2018-04-22 16:16 | PCM.OPRPT ---
Report of Operation Date of Procedure: 04/22/18 Pre-Operative Diagnosis: 1. MRSA abscess right hip. 2. 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 5. MRSA. 6. Osteomyelitis. 7. Diabetes mellitus. 8. Peripheral vascular disease. 9. Paraplegia. Post-Operative Diagnosis: Same. Surgery/Procedure Performed:: 1. Incision and drainage right hip disarticulation MRSA abscess. 2. Excision infected MRSA right hip disarticulation pressure sore, Stage IV, with partial ostectomy for osteomyelitis. 3. Excision infected MRSA right ischial pressure sore, Stage IV, with partial ostectomy for osteomyelitis. Description of Surgical Findings:: Patient is known to me as I [facility], [facility]. He had a superficial ulcer on his right hip disarticulation that was being treated with Silver dressing changes. He was finishing up Doxycycline for a recent MRSA culture. He had a right hip disarticulation and muscle flap reconstruction in the Fall in [place]. I initially addressed the multiple ulcerations on his left lower extremity with osteomyelitis in the ankle for amputation. I was setting him up for a Vascular evaluation on the left because of a noninvasive arterial Doppler study in 09/27 which showed significant ilio-femoral disease making amputation surgery problematic. The evaluation was to determine the need for a stent or angioplasty in the ilio-femoral area that would improve blood flow to the left leg amputation site to maximize healing. After the left leg amputation has healed, would then address the ulceration on his right hip disarticulation with debridement and partial ostectomy for osteomyelitis. Would begin the VAC postop and depending on the healing and the extent of the debridement, if further complex surgery was warranted such as a partial pelvectomy for osteomyelitis and muscle flaps reconstruction, then he would need to be evaluated back at the tertiary center in [place] where the hip disarticulation was done. However he recently noted increasing purulent drainage coming from his right hip ulcerations which have significantly worsened in the last few days. So he was admitted to the hospital last night and started on IV Vancomycin and Zosyn. WBC was 7.3 this morning. Hgb was 8.7. BUN/Creat was 57/1.49. HgbA1c was 7.2. ESR was 121. CRP was 105. Prealbumin was 12.2. MRSA DNA by PCR was positive. MRI Pelvis was done this morning and was suspicious for osteomyelitis in the acetabulum. On exam, there was copious amounts of pus coming from two ulcers, one on the right hip disarticulation area and one more medially on the right ischial area. They have a depth of 4 cm. I anticipate bony involvement. Patient needs urgent operative intervention today with incision and drainage and excision of the MRSA abscesses in the right hip disarticulation and right ischial pressure sores with partial ostectomy for osteomyelitis. Postop will begin wound care with the VAC. While he is recovering from this urgent surgery, may repeat the noninvasive arterial Doppler study on the left to further evaluate his left leg issues. Patient understands that no vascular procedure will be done until the infection right hip has been adequately treated. Patient was informed of the risks and complications of the procedure including alternatives to surgery. These were discussed with the patient personally. Patient voices understanding and wishes to proceed. IV Fluids - 1100 ml (700 ml crystalloid and 400 ml PRBC). Urine Output - 100 ml. Size of defect right hip disarticulation/ischial area - 20 x 15 x 7 cm. I used Amanda absorbable hemostat, (I used 2 vials). Reference Number - [id number]. Lot Number - [id number]. Expiration - January 07, 2023. enrollment management manager: None Type of Anesthesia:: General Specimen's removed: 1. Right hip disarticulation pressure sore abscess soft tissue to Pathology and Microbiology. 2. Right hip disarticulation pressure sore abscess bone to Pathology and Microbiology. 3. Right ischial pressure sore abscess soft tissue to Pathology and Microbiology. 4. Right ischial pressure sore abscess bone to Pathology and Microbiology. Drains: None. Estimated Blood Loss (mL): 450 ml. Fluids Replaced: 1200 ml (IVF 1100ml, 700ml crystalloid and 400ml PRBC, and U/O 100 ml). Description of Procedure: Patient was taken to OR in supine position and was placed under general anesthesia. A bump was placed underneath the right hip to elevate the right hip. The right hip disarticulation area and ischial areas were prepped and draped in the usual fashion. SCD's were not placed for DVT prophylaxis. Patient's right leg is amputated and his left leg has multiple ulcerations, so the patient is getting chemoprophylaxis. Perioperative antibiotics were given intravenously. Incision was made in the right hip disarticulation area where pus had been draining. Dissection was carried down into the subcutaneous tissue. Copious amounts of pus were seen scattered around the wound and extended deeper toward the bone. A lot of indurated fat necrosis was present. The ulceration had extended down to the bone involving the right hip acetabulum. A lot of exudate was seen in the wound as well. Fair amount of bleeding was seen that was controlled with electrocautery. The wound was irrigated with saline. The pus and some of the indurated fat necrosis was set aside to be sent to Microbiology for culture. A positive culture may necessitate antibiotic modification. After the incision and drainage of the abscess, I proceeded with excision of the right hip disarticulation pressure sore as it involved the right hip bone acetabulum. The excision involved the indurated fat necrosis and nonviable muscle and abnormal scar tissue extending to the right hip bone acetabulum. A partial ostectomy was done for osteomyelitis. A rasp was used to smooth out the bony edges. The wound was irrigated with saline. Hemostasis was obtained with electrocautery. The wound was temporarily packed while I addressed the ischial ulcer. There was pus coming from this ulcer as well. Incision was made in the right ischial area where pus had been draining. Dissection was carried down into the subcutaneous tissue. Copious amounts of pus were seen scattered around the wound and extended deeper toward the bone. A lot of indurated fat necrosis was present. The ulceration had extended down to the ischial bone. A lot of exudate was seen in the wound as well. Fair amount of bleeding was seen that was controlled with electrocautery. The wound was irrigated with saline. The pus and some of the indurated fat necrosis was set aside to be sent to Microbiology for culture. A positive culture may necessitate antibiotic modification. After the incision and drainage of the abscess, I proceeded with excision of the right ischial pressure sore as it involved the right ischial bone. The excision involved the indurated fat necrosis and nonviable muscle and abnormal scar tissue extending to the right ischial bone. A partial ostectomy was done for osteomyelitis. A rasp was used to smooth out the bony edges. The wound was irrigated with saline. Hemostasis was obtained with electrocautery. A fair amount of bleeding was seen during the excision, about 450 ml. PRBC was typed and crossed preoperatively and Anesthesia started transfusion of a unit of PRBC. After excision of the right ischial pressure sore, there was a deeper tunnel that extended into the right hip disarticulation wound. The intervening skin bridge was excised to open up this additional purulent tunnel which extended to the bone as well. The size of the wounds combined into one was 20 x 15 x 7 cm. Half the soft tissue and half the bone (for both the right hip disarticulation pressure sore and the right ischial pressure sore) were sent to Pathology for analysis to rule out carcinoma and to evaluate for osteomyelitis. Half the soft tissue and half the bone (for both the right hip disarticulation pressure sore and the right ischial pressure sore) were sent to Microbiology for culture. A positive culture may necessitate antibiotic modification. Once again, the wounds were irrigated with saline. Hemostasis was obtained with electrocautery. Some oozing on the bone was controlled with bone wax. I then sprayed Amanda absorbable hemostat into the wounds to minimize seroma formation. I then dressed the wounds with Mepitel nonadherent dressing followed by Kerlix gauze and Betadine followed by dry Kerlix gauze and ABD pads for a compression dressing. Patient tolerated the procedure well and was sent to PACU in satisfactory condition. Patient will be sent upstairs for continued postop care. The VAC will be applied tomorrow. The second unit of PRBC will be transfused postop. Will check a Hgb in the morning. I suspect osteomyelitis in the bone in which case he would be a candidate for HBO treatments. Along with complex wound care with the VAC and the need for assisted IV antibiotics, will have him evaluated for an LTAC at discharge. Grafts/Implants Used: None. - Complications None. - Admit VTE Documentation VTE Present on Admission: No VTE Mechan Device Prophylaxis: None - Patient's right leg is amputated and his left leg has multiple ulcerations, so the patient is getting chemoprophylaxis. VTE Pharm Prophylaxis ordered?: Yes Code Visit Surgery Charges CPT - 69181 ICD-10 - L02.415, L89.214, Z89.621, L89.314, A49.02, M86.9, E11.9, I73.9, G82.20 [id number] L89.214, A49.02, M86.9, Z89.621, E11.9, I73.9, G82.20 [id number] L89.314, A49.02, M86.9, E11.9, I73.9, G82.20
--- NOTE | 2018-04-22 16:20 | OP.PCM_ITS ---
Report of Operation Date of Procedure: 04/22/18 Pre-Operative Diagnosis: 1. MRSA abscess right hip. 2. Right hip disart iculation pressure sore, Stage IV. 3. History of right hip disarticulation. 4. Right ischial pressure sore, Stage IV. 5. MRSA. 6. Osteomyelitis. 7. Diabetes mellitus. 8. Peripheral vascular disease. 9. Paraplegia. Post-Operative Diagnosis: Same. Surgery/Procedure Performed:: 1. Incision and drainage right hip disarticulation MRSA abscess. 2. Excision infected MRSA right hip disarticulation pressure sore, Stage IV, with partial ostectomy for osteomyelitis. 3. Excision infected MRSA right ischial pressure sore, Stage IV, with partial ostectomy for osteomyelitis. Description of Surgical Findings:: Patient is known to me as I [facility] on [facility] 2018. He had a superficial ulcer on his right hip disarticulation that was being treated with Silver dressing changes. He was finishing up Doxycycline for a recent MRSA culture. He had a right hip disarticulation and muscle flap reconstruction in the Fall in [place]. I initially addressed the multiple ulcerations on his left lower extremity with osteomyelitis in the ankle for amputation. I was setting him up for a Vascular evaluation on the left because of a noninvasive arterial Doppler study in 09/27 which showed significant ilio- femoral disease making amputation surgery problematic. The evaluation was to determine the need for a stent or angioplasty in the ilio-femoral area that would improve blood flow to the left leg amputation site to maximize healing. After the left leg amputation has healed, would then address the ulceration on his right hip disarticulation with debridement and partial ostectomy for osteomyelitis. Would begin the VAC postop and depending on the healing and the extent of the debridement, if further complex surgery was warranted such as a partial pelvectomy for osteomyelitis and muscle flaps reconstruction, then he would need to be evaluated back at the tertiary center in [place] where the hip disarticulation was done. However he recently noted increasing purulent drainage coming from his right hip ulcerations which have significantly worsened in the last few days. So he was admitted to the hospital last night and started on IV Vancomycin and Zosyn. WBC was 7.3 this morning. Hgb was 8.7. BUN/Creat was 57/1.49. HgbA1c was 7.2. ESR was 121. CRP was 105. Prealbumin was 12.2. MRSA DNA by PCR was positive. MRI Pelvis was done this morning and was suspicious for osteomyelitis in the acetabulum. On exam, there was copious amounts of pus coming from two ulcers, one on the right hip disarticulation area and one more medially on the right ischial area. They have a depth of 4 cm. I anticipate bony involvement. Patient needs urgent operative intervention today with incision and drainage and excision of the MRSA abscesses in the right hip disarticulation and right ischial pressure sores with partial ostectomy for osteomyelitis. Postop will begin wound care with the VAC. While he is recovering from this urgent surgery, may repeat the noninvasive arterial Doppler study on the left to further evaluate his left leg issues. Patient understands that no vascular procedure will be done until the infection right hip has been adequately treated. Patient was informed of the risks and complications of the procedure including alternatives to surgery. These were discussed with the patient personally. Patient voices understanding and wishes to proceed. IV Fluids - 1100 ml (700 ml crystalloid and 400 ml PRBC). Urine Output - 100 ml. Size of defect right hip disarticulation/ischial area - 20 x 15 x 7 cm. I used Amanda absorbable hemostat, (I used 2 vials). Reference Number - [id number]. Lot Number - [id number]. Expiration - January 07, 2023. risk management professional: None Type of Anesthesia:: General Specimen's removed: 1. Right hip disarticulation pressure sore abscess soft tissue to Pathology and Microbiology. 2. Right hip disarticulation pressure sore abscess bone to Pathology and Microbiology. 3. Right ischial pressure sore abscess soft tissue to Pathology and Microbiology. 4. Right ischial pressure sore abscess bone to Pathology and Microbiology. Drains: None. Estimated Blood Loss (mL): 450 ml. Fluids Replaced: 1200 ml (IVF 1100ml, 700ml crystalloid and 400ml PRBC, and U/O 100 ml). Description of Procedure: Patient was taken to OR in supine position and was placed under general anesthesia. A bump was placed underneath the right hip to elevate the right hip. The right hip disarticulation area and ischial areas were prepped and draped in the usual fashion. SCD's were not placed for DVT prophylaxis. Patient's right leg is amputated and his left leg has multiple ulcerations, so the patient is getting chemoprophylaxis. Perioperative antibiotics were given intravenously. Incision was made in the right hip disarticulation area where pus had been draining. Dissection was carried down into the subcutaneous tissue. Copious amounts of pus were seen scattered around the wound and extended deeper toward the bone. A lot of indurated fat necrosis was present. The ulceration had extended down to the bone involving the right hip acetabulum. A lot of exudate was seen in the wound as well. Fair amount of bleeding was seen that was controlled with electrocautery. The wound was irrigated with saline. The pus and some of the indurated fat necrosis was set aside to be sent to Microbiology for culture. A positive culture may necessitate antibiotic modification. After the incision and drainage of the abscess, I proceeded with excision of the right hip disarticulation pressure sore as it involved the right hip bone acetabulum. The excision involved the indurated fat necrosis and nonviable muscle and abnormal scar tissue extending to the right hip bone acetabulum. A partial ostectomy was done for osteomyelitis. A rasp was used to smooth out the bony edges. The wound was irrigated with saline. Hemostasis was obtained with electrocautery. The wound was temporarily packed while I addressed the ischial ulcer. There was pus coming from this ulcer as well. Incision was made in the right ischial area where pus had been draining. Dissection was carried down into the subcutaneous tissue. Copious amounts of pus were seen scattered around the wound and extended deeper toward the bone. A lot of indurated fat necrosis was present. The ulceration had extended down to the ischial bone. A lot of exudate was seen in the wound as well. Fair amount of bleeding was seen that was controlled with electrocautery. The wound was irrigated with saline. The pus and some of the indurated fat necrosis was set aside to be sent to Microbiology for culture. A positive culture may necessitate antibiotic modification. After the incision and drainage of the abscess, I proceeded with excision of the right ischial pressure sore as it involved the right ischial bone. The excision involved the indurated fat necrosis and nonviable muscle and abnormal scar tissue extending to the right ischial bone. A partial ostectomy was done for osteomyelitis. A rasp was used to smooth out the bony edges. The wound was irrigated with saline. Hemostasis was obtained with electrocautery. A fair amount of bleeding was seen during the excision, about 450 ml. PRBC was typed and crossed preoperatively and Anesthesia started transfusion of a unit of PRBC. After excision of the right ischial pressure sore, there was a deeper tunnel that extended into the right hip disarticulation wound. The intervening skin bridge was excised to open up this additional purulent tunnel which extended to the bone as well. The size of the wounds combined into one was 20 x 15 x 7 cm. Half the soft tissue and half the bone (for both the right hip disarticulation pressure sore and the right ischial pressure sore) were sent to Pathology for analysis to rule out carcinoma and to evaluate for osteomyelitis. Half the soft tissue and half the bone (for both the right hip disarticulation pressure sore and the right ischial pressure sore) were sent to Microbiology for culture. A positive culture may necessitate antibiotic modification. Once again, the wounds were irrigated with saline. Hemostasis was obtained with electrocautery. Some oozing on the bone was controlled with bone wax. I then sprayed Amanda absorbable hemostat into the wounds to minimize seroma formation. I then dressed the wounds with Mepitel nonadherent dressing followed by Kerlix gauze and Betadine followed by dry Kerlix gauze and ABD pads for a compression dressing. Patient tolerated the procedure well and was sent to PACU in satisfactory condition. Patient will be sent upstairs for continued postop care. The VAC will be applied tomorrow. The second unit of PRBC will be transfused postop. Will check a Hgb in the morning. I suspect osteomyelitis in the bone in which case he would be a candidate for HBO treatments. Along with complex wound care with the VAC and the need for termite treater IV antibiotics, will have him evaluated for an LTAC at discharge. Grafts/Implants Used: None. - Complications None. - Admit VTE Documentation VTE Present on Admission: No VTE Mechan Device Prophylaxis: None - Patient's right leg is amputated and his left leg has multiple ulcerations, so the patient is getting chemoprophylaxis. VTE Pharm Prophylaxis ordered?: Yes Code Visit Surgery Charges CPT - 41133 ICD-10 - L02.415, L89.214, Z89.621, L89.314, A49.02, M86.9, E11.9, I73.9, G82.20 [id number] L89.214, A49.02, M86.9, Z89.621, E11.9, I73.9, G82.20 [id number] L89.314, A49.02, M86.9, E11.9, I73.9, G82.20
[2018-04-22 16:46] LABS: Bedside Glucose 160 mg/dL (70-110)
[2018-04-22] MEDS: 0.9% Normal Saline 1,000 ML 100 ML IV (18:38)
[2018-04-23] VITALS (8 sets, daily range): BP systolic 126–147; BP diastolic 62–70; PULSE 68–86; RESP 15–16; TEMP 36.7–37; O2SAT 98–100
[2018-04-23 00:10] LABS: Bedside Glucose 189 mg/dL (70-110)
[2018-04-23] MEDS: Levothyroxine 25 MCG TABLET PO (05:38)
[2018-04-23] MEDS: Gabapentin 300 MG Capsule PO ×2 (05:39→21:49)
[2018-04-23] MEDS: Insulin Lispro 100 UNIT/ML INSULN.PEN SC ×4 (05:43→21:48)
[2018-04-23 05:55] LABS: Bedside Glucose 304 mg/dL (70-110)
[2018-04-23 07:37] LABS: Absolute Lymphocyte Count 0.69 X10^3/ul (0.83-4.51); Absolute Neutrophil Count 4.7 X10^3/uL (2.0-7.7); Basophil# 0.02 X10^3/uL; Basophil% 0.3 % (0-1); Eosinophil# 0.58 X10^3/uL; Hematocrit 33.4 % (40-54); Hemoglobin 10.4 g/dl (13.0-16.5); Lymphocyte # 0.69 X10^3/ul (4.0); Lymphocyte % 10.7 % (19-41); Mean Corp Hgb Conc 31.1 g/gl (32-36); Mean Corpuscular Hgb 27.7 pg (27.0-32.0); Mean Corpuscular Volume 89.1 fL (80-94); Mean Platelet Vol. 9.4 fl (6.2-12.0); Monocyte# 0.48 X10^3/uL; Monocyte% 7.4 % (0-10); Neutrophil # 4.66 X10^3/uL (2.7-7.7); Platelet Count 230 K/mm3 (150-450); RBC Distribution Width CV 15.8 % (11.6-14.6); RBC Distribution Width SD 51.6 fl (35.1-43.9); Red Blood Count 3.75 M/mm3 (4.6-6.2); White Blood Count 6.5 K/mm3 (4.4-11.0)
[2018-04-23 07:38] LABS: POSITIVE COUNT NO; POSITIVE DIFFERENTIAL NO; POSITIVE MORPHOLOGY NO
[2018-04-23 08:08] LABS: Anion Gap 8 (5-15); BUN 44 mg/dL (7-18); BUN/Creat Ratio 32.8 RATIO (10-20); Calcium,Total 7.7 mg/dL (8.5-10.1); Chloride 113 mmol/L (98-107); Creatinine, Serum 1.34 mg/dL (0.70-1.30); EST Glomerular Filtration Rate 55 mL/min (>60); Est Glom Filt Rate - Afr Amer 67 mL/min (>60); Estimated Creatinine Clearance 46.86 ml/min; Glucose 308 mg/dL (74-106); Magnesium 1.4 mg/dL (1.6-2.6); Potassium 4.6 mmol/L (3.5-5.1); Sodium Level 137 mmol/L (136-145)
[2018-04-23] MEDS: Glucerna Shake 120 ML LIQUID PO ×4 (08:59→21:50)
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
[2018-04-23] MEDS: Meloxicam 15 MG Tablet PO (09:00)
[2018-04-23] MEDS: Multivitamins,Ther W-Minerals Tablet 1 TABLET PO (09:00)
[2018-04-23] MEDS: Heparin Injection (Vial) 5,000 UNIT/ML VIAL 5000 UNIT SC ×2 (09:00→21:49)
[2018-04-23] MEDS: Pantoprazole Sodium 40 MG Tablet PO (09:00)
[2018-04-23] MEDS: Metoprolol Tartrate 25 MG Tablet 12.5 MG PO ×2 (09:00→21:49)
[2018-04-23] MEDS: Ascorbic Acid 500 MG Tablet 1000 MG PO (09:01)
--- NOTE | 2018-04-23 10:34 | PN.ID_ITS ---
Patient Problems: Active and Suspected Problems (Last Reviewed 09/24/17 @ 22:20 by Sascha Hadley MD) Abscess of right hip (Acute) Methicillin resistant Staphylococcus aureus infection (Acute) Family history of skin cancer (Acute) Infected pressure ulcer (Acute) Subjective: Feeling ok, pain controlled, no fever, no n/v/d. - Physical Exam General: Alert, Cooperative, No apparent distress Lungs: Clear to auscultation, Normal air movement Cardiovascular: Regular rate, Regular Rhythm Abdomen: Soft, Non Tender, Non-Distended Skin: Ulcer/ Wound - dressing in place Vital Signs Temp Pulse Resp BP Pulse Ox 98.1 F 68 15 134/62 H 100 04/23/18 08:39 04/23/18 09:00 04/23/18 08:39 04/23/18 08:39 04/23/18 08:39 Oxygen Delivery Method Room Air Weight: 68.5 kg Body Mass Index (BMI) 21.6 Finger Stick Blood Glucose 160 Intake and Output for Last 24 Hours 04/21/18 04/22/18 04/23/18 23:59 23:59 23:59 Intake Total 4127 / 4127 626 / 626 Output Total 300 / 300 1050 / 1050 400 / 400 Balance -300 / -300 3077 / 3077 226 / 226 Microbiology Past 72 Hours 04/21/18 16:15 Gram Stain - Final Wound - Hip Wound Culture - Preliminary Staphylococcus aureus Gram positive organism 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 Laboratory Tests Past 24 Hrs 04/22/18 04/23/18 04/23/18 12:50 06:05 07:10 WBC 6.5 RBC 3.75 L Hgb 10.4 L Hct 33.4 L MCV 89.1 MCH 27.7 MCHC 31.1 L RDW 15.8 H RDW Differential 51.6 H Plt Count 230 MPV 9.4 Immature Gran % (Auto) 0.600 Neut % (Auto) 72.0 H Lymph % (Auto) 10.7 L [place] % (Auto) 7.4 Eos % (Auto) 9.0 H Baso % (Auto) 0.3 Absolute Neuts (auto) 4.7 Absolute Lymphs (auto) 0.69 L Total Counted Not Reportable Sodium 137 Potassium 4.6 Chloride 113 H Carbon Dioxide 16.0 L Anion Gap 8 BUN 44 H Creatinine 1.34 H Estim Creat Clear Calc 46.86 Est GFR (MDRD) Af Amer 67 Est GFR (MDRD) Non-Af 55 L BUN/Creatinine Ratio 32.8 H Glucose 308 H Calcium 7.7 L Magnesium 1.4 L Blood Type A POSITIVE Antibody Screen NEGATIVE Crossmatch See Detail POC Glucose 04/23/18 04/22/18 04/22/18 05:42 21:35 16:39 POC Glucose 304 H 189 H 160 H 04/22/18 11:09 POC Glucose 173 H Medical Necessity - Tobacco Use Smoking Status: Never smoker Tobacco Use: Non-smoker Route of nutrition/ use of supplements: [] Nutritional Intake: [] IV Site: [] Lozano Catheter: [] - Assessment/Plan Antibiotics: [] Assessment/Plan: [] Active and Suspected Problems (Last Reviewed 09/24/17 @ 22:20 by Sascha Hadley MD) Abscess of right hip (Acute) Methicillin resistant Staphylococcus aureus infection (Acute) Family history of skin cancer (Acute) Infected pressure ulcer (Acute) R hip osteo with associated abscess - on vanc/zosyn. OR 04/[address] Lutz. 03/16/18 wound cx with mrsa, prevotella, anaerobes. Surg cx with GNR, staph, gram pos. Picc today. Will follow
[2018-04-23 11:45] LABS: Bedside Glucose 342 mg/dL (70-110)
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
--- NOTE | 2018-04-23 13:05 | CASEMGMT ---
Addendum entered by Radha Heath 04/23/18 14:02: SW called [facility] and told them to hold off on referral as we are going to try for LTACH first. ARELI Ward, HEALTH CENTER ASSOCIATE Original Note: Addendum entered by Radha Heath 04/23/18 13:48: SW did put on the referral for [facility] that pt does need a specialized mattress [facility] the [facility]. ARELI Ward, HEALTH CENTER ASSOCIATE Original Note: SW met w/pt in room in regard to discharge plan. Pt is agreeable to jail placement for IV antibiotics and wound care. SW spoke w/pt about where he may want to go. SW provided list to pt of in network facilities. Pt has been to [facility] and to [facility] in the past. Pt would like to go somewhere that has a wound healing RN, pt agreeable to have SW call [facility] to check on whether or not they have a wound healing RN on staff. Pt states also they need to have a special mattress for him wherever he goes, SW explained will speak to whichever facility about this. Pt states also that the wound healing center has been trying to assist pt in getting the specialized mattress but has not been successful, asked if he should speak w/Dr. Caceres about it. SW explained he could do this, can also check with whatever facility he goes to, and see if they can assist in getting pt this prior to his discharge. Pt states understanding. SONIA called [facility], spoke w/Dorota. They have a wound healing RN there several times per week as well as a wound healing physician once per week. SONIA explained may send referral. SONIA spoke w/pt again, let him know [facility] has both a wound healing RN several times per week and a wound care physician one time per week. Pt agreeable to referral being sent, will speak w/his daughter sang to confirm this choice. SONIA will stop in to see pt again tomorrow. SONIA faxed referral to [facility], will follow up tomorrow. ARELI Ward, HEALTH CENTER ASSOCIATE
--- NOTE | 2018-04-23 14:33 | NURSING ---
wound photo: right hip
--- NOTE | 2018-04-23 14:45 | PCM.PN.SRG ---
Patient Problems: Active and Suspected Problems (Last Reviewed 09/24/17 @ 22:20 by Sascha Hadley MD) Abscess of right hip (Acute) Methicillin resistant Staphylococcus aureus infection (Acute) Family history of skin cancer (Acute) Infected pressure ulcer (Acute) Subjective: Postop #1 Patient is resting comfortably. - Physical Exam General: Alert, Oriented x3 HEENT: PERRLA, EOMI Oral: Moist Mucosa Neck: Supple Abdomen: Soft, Non-Distended Skin: Ulcer/ Wound - right hip/ischial wound is stable. No more pus seen. Slightly oozy scattered throughout. No active bleeding seen. Redressed with a saline compression dressing. Will apply the VAC tomorrow. Neurological: Cranial nerves II-XII grossly intact Psych/Mental Status: Normal Affect, Appropriate Vital Signs Temp Pulse Resp BP Pulse Ox 98.0 F 80 15 135/66 H 100 04/23/18 13:37 04/23/18 13:37 04/23/18 13:37 04/23/18 13:37 04/23/18 13:42 Oxygen Delivery Method Room Air Weight: 151 lb 0.266 oz Body Mass Index (BMI) 21.6 Finger Stick Blood Glucose 160 Intake and Output for Last 24 Hours 04/21/18 04/22/18 04/23/18 23:59 23:59 23:59 Intake Total 4127 / 4127 1335 / 1335 Output Total 300 / 300 1050 / 1050 1000 / 1000 Balance -300 / -300 3077 / 3077 335 / 335 Microbiology Past 72 Hours 04/22/18 Unknown Gram Stain - Final Biopsy - Ischium Wound Culture - Preliminary Gram positive organism 04/22/18 Unknown Gram Stain - Final Biopsy - Bone Wound Culture - Preliminary Mixed Gram Positive Organisms 04/22/18 Unknown Gram Stain - Final Biopsy - Tissue Wound Culture - Preliminary Mixed Gram Positive Organisms 04/22/18 Unknown Gram Stain - Final Biopsy - Bone Wound Culture - Preliminary Mixed Gram Positive Organisms 04/21/18 16:15 Gram Stain - Final Wound - Hip Wound Culture - Preliminary Staphylococcus aureus Gram positive organism GNR lactose gis instructor Pathology - pending. Laboratory Tests Past 24 Hrs 04/22/18 04/23/18 04/23/18 12:50 06:05 07:10 WBC 6.5 RBC 3.75 L Hgb 10.4 L Hct 33.4 L MCV 89.1 MCH 27.7 MCHC 31.1 L RDW 15.8 H RDW Differential 51.6 H Plt Count 230 MPV 9.4 Immature Gran % (Auto) 0.600 Neut % (Auto) 72.0 H Lymph % (Auto) 10.7 L [place] % (Auto) 7.4 Eos % (Auto) 9.0 H Baso % (Auto) 0.3 Absolute Neuts (auto) 4.7 Absolute Lymphs (auto) 0.69 L Total Counted Not Reportable Sodium 137 Potassium 4.6 Chloride 113 H Carbon Dioxide 16.0 L Anion Gap 8 BUN 44 H Creatinine 1.34 H Estim Creat Clear Calc 46.86 Est GFR (MDRD) Af Amer 67 Est GFR (MDRD) Non-Af 55 L BUN/Creatinine Ratio 32.8 H Glucose 308 H Calcium 7.7 L Magnesium 1.4 L Blood Type A POSITIVE Antibody Screen NEGATIVE Crossmatch See Detail POC Glucose 04/23/18 04/23/18 04/22/18 11:36 05:42 21:35 POC Glucose 342 H 304 H 189 H 04/22/18 16:39 POC Glucose 160 H Medical Necessity - Tobacco Use Smoking Status: Never smoker Tobacco Use: Non-smoker Assessment/Plan All Active Problems (Last Reviewed 09/24/17 @ 22:20 by Sascha Hadley MD) Abscess of right hip (Acute) Methicillin resistant Staphylococcus aureus infection (Acute) Family history of skin cancer (Acute) Blister of left leg without infection (Acute) Hypotension (Acute) Probable sepsis (Acute) Infected pressure ulcer (Acute) Abdominal pain (Acute) Acute kidney injury (Acute) Septic shock (Acute) Pressure ulcer of sacral region, stage 3 (Acute) Scrotal ulcer (Acute) Complicated UTI (urinary tract infection) (Acute) Constipation (Acute) Pressure ulcer of perianal region (Resolved) Pressure ulcer of buttock (Resolved) UTI (urinary tract infection) (Acute) 1. MRSA abscess right hip. 2. 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 5. MRSA. 6. Osteomyelitis. 7. Diabetes mellitus. 8. Peripheral vascular disease. 9. Paraplegia. 10. s/p incision and drainage right hip disarticulation MRSA abscess and excision infected MRSA right hip disarticulation pressure sore, Stage IV, with partial ostectomy for osteomyelitis and excision infected MRSA right ischial pressure sore, Stage IV, with partial ostectomy for osteomyelitis. 11. Anemia of chronic disease, acute on chronic, stable. Wound is stable with no active bleeding. Does have some scattered oozing spots. Will place the VAC tomorrow. Today redressed the wound with a saline compression dressing. Continue Vancomycin and Zosyn. Cultures show MRSA, Gram negative rods lactose gis instructor, and Gram positive organisms. He will need meterman IV antibiotics. PICC line being placed. Pathology is pending. Prealbumin was 12.2. Encourage nutritional supplementation with protein to help the healing process. Hgb improved from 8.7 to 10.4 Received PRBC perioperatively. Had operative blood loss of 450 ml. Suspect osteomyelitis. Would benefit from HBO. Will evaluate for LTAC.
--- NOTE | 2018-04-23 14:49 | PN.SURG_ITS ---
Patient Problems: Active and Suspected Problems (Last Reviewed 09/24/17 @ 22:20 by Sascha Hadley MD) Abscess of right hip (Acute) Methicillin resistant Staphylococcus aureus infection (Acute) Family history of skin cancer (Acute) Infected pressure ulcer (Acute) Subjective: Postop #1 Patient is resting comfortably. - Physical Exam General: Alert, Oriented x3 HEENT: PERRLA, EOMI Oral: Moist Mucosa Neck: Supple Abdomen: Soft, Non-Distended Skin: Ulcer/ Wound - right hip/ischial wound is stable. No more pus seen. Slightly oozy scattered throughout. No active bleeding seen. Redressed with a saline compression dressing. Will apply the VAC tomorrow. Neurological: Cranial nerves II-XII grossly intact Psych/Mental Status: Normal Affect, Appropriate Vital Signs Temp Pulse Resp BP Pulse Ox 98.0 F 80 15 135/66 H 100 04/23/18 13:37 04/23/18 13:37 04/23/18 13:37 04/23/18 13:37 04/23/18 13:42 Oxygen Delivery Method Room Air Weight: 151 lb 0.266 oz Body Mass Index (BMI) 21.6 Finger Stick Blood Glucose 160 Intake and Output for Last 24 Hours 04/21/18 04/22/18 04/23/18 23:59 23:59 23:59 Intake Total 4127 / 4127 1335 / 1335 Output Total 300 / 300 1050 / 1050 1000 / 1000 Balance -300 / -300 3077 / 3077 335 / 335 Microbiology Past 72 Hours 04/22/18 Unknown Gram Stain - Final Biopsy - Ischium Wound Culture - Preliminary Gram positive organism 04/22/18 Unknown Gram Stain - Final Biopsy - Bone Wound Culture - Preliminary Mixed Gram Positive Organisms 04/22/18 Unknown Gram Stain - Final Biopsy - Tissue Wound Culture - Preliminary Mixed Gram Positive Organisms 04/22/18 Unknown Gram Stain - Final Biopsy - Bone Wound Culture - Preliminary Mixed Gram Positive Organisms 04/21/18 16:15 Gram Stain - Final Wound - Hip Wound Culture - Preliminary Staphylococcus aureus Gram positive organism GNR lactose skin care specialist Pathology - pending. Laboratory Tests Past 24 Hrs 04/22/18 04/23/18 04/23/18 12:50 06:05 07:10 WBC 6.5 RBC 3.75 L Hgb 10.4 L Hct 33.4 L MCV 89.1 MCH 27.7 MCHC 31.1 L RDW 15.8 H RDW Differential 51.6 H Plt Count 230 MPV 9.4 Immature Gran % (Auto) 0.600 Neut % (Auto) 72.0 H Lymph % (Auto) 10.7 L [place] % (Auto) 7.4 Eos % (Auto) 9.0 H Baso % (Auto) 0.3 Absolute Neuts (auto) 4.7 Absolute Lymphs (auto) 0.69 L Total Counted Not Reportable Sodium 137 Potassium 4.6 Chloride 113 H Carbon Dioxide 16.0 L Anion Gap 8 BUN 44 H Creatinine 1.34 H Estim Creat Clear Calc 46.86 Est GFR (MDRD) Af Amer 67 Est GFR (MDRD) Non-Af 55 L BUN/Creatinine Ratio 32.8 H Glucose 308 H Calcium 7.7 L Magnesium 1.4 L Blood Type A POSITIVE Antibody Screen NEGATIVE Crossmatch See Detail POC Glucose 04/23/18 04/23/18 04/22/18 11:36 05:42 21:35 POC Glucose 342 H 304 H 189 H 04/22/18 16:39 POC Glucose 160 H Medical Necessity - Tobacco Use Smoking Status: Never smoker Tobacco Use: Non-smoker Assessment/Plan All Active Problems (Last Reviewed 09/24/17 @ 22:20 by Sascha Hadley MD) Abscess of right hip (Acute) Methicillin resistant Staphylococcus aureus infection (Acute) Family history of skin cancer (Acute) Blister of left leg without infection (Acute) Hypotension (Acute) Probable sepsis (Acute) Infected pressure ulcer (Acute) Abdominal pain (Acute) Acute kidney injury (Acute) Septic shock (Acute) Pressure ulcer of sacral region, stage 3 (Acute) Scrotal ulcer (Acute) Complicated UTI (urinary tract infection) (Acute) Constipation (Acute) Pressure ulcer of perianal region (Resolved) Pressure ulcer of buttock (Resolved) UTI (urinary tract infection) (Acute) 1. MRSA abscess right hip. 2. 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 5. MRSA. 6. Osteomyelitis. 7. Diabetes mellitus. 8. Peripheral vascular disease. 9. Paraplegia. 10. s/p incision and drainage right hip disarticulation MRSA abscess and excision infected MRSA right hip disarticulation pressure sore, Stage IV, with partial ostectomy for osteomyelitis and excision infected MRSA right ischial pressure sore, Stage IV, with partial ostectomy for osteomyelitis. 11. Anemia of chronic disease, acute on chronic, stable. Wound is stable with no active bleeding. Does have some scattered oozing spots. Will place the VAC tomorrow. Today redressed the wound with a saline compression dressing. Continue Vancomycin and Zosyn. Cultures show MRSA, Gram negative rods lactose skin care specialist, and Gram positive organisms. He will need terminal system operator IV antibiotics. PICC line being placed. Pathology is pending. Prealbumin was 12.2. Encourage nutritional supplementation with protein to help the healing process. Hgb improved from 8.7 to 10.4 Received PRBC perioperatively. Had operative blood loss of 450 ml. Suspect osteomyelitis. Would benefit from HBO. Will evaluate for LTAC.
--- NOTE | 2018-04-23 15:36 | CASEMGMT ---
RN CM Note: call from Kamini Schneider @ [facility]. Continues to work on admission. updated that per wound nurse, hyperbaric tx would not be immediate, but will check with Dr. Lutz tomorrow. Radhames IYERN RN ACM
[2018-04-23 16:26] LABS: Bedside Glucose 325 mg/dL (70-110)
[2018-04-23 20:25] LABS: Vancomycin, Trough Level 13.4 ug/mL (5.0-15.0)
--- NOTE | 2018-04-23 20:45 | PCM.RX.CS ---
Consult Pharmacy has been consulted to manage selected antiobiotic: Vancomycin Type of Consult: Follow-up Suspected Infection: Skin/Soft tissue Prior Doses of Antibiotics Received/Current Regimen: On 750mg IV q24h. Labs: Sodium 137 mmol/L (136-145) 04/23/18 07:10 Potassium 4.6 mmol/L (3.5-5.1) 04/23/18 07:10 Chloride 113 mmol/L (98-107) H 04/23/18 07:10 Carbon Dioxide 16.0 mmol/L (21.0-32.0) L 04/23/18 07:10 Anion Gap 8 (5-15) 04/23/18 07:10 BUN 44 mg/dL (7-18) H 04/23/18 07:10 Creatinine 1.34 mg/dL (0.70-1.30) H 04/23/18 07:10 Est GFR (MDRD) Af Amer 67 mL/min (>60) 04/23/18 07:10 Est GFR (MDRD) Non-Af 55 mL/min (>60) L 04/23/18 07:10 BUN/Creatinine Ratio 32.8 RATIO (10-20) H 04/23/18 07:10 Glucose 308 mg/dL (74-106) H 04/23/18 07:10 Vancomycin Trough 13.4 ug/mL (5.0-15.0) 04/23/18 19:40 Microbiology: Microbiology 04/22/18 Unknown Biopsy - Ischium Gram Stain - Final 04/22/18 Unknown Biopsy - Ischium Wound Culture - Preliminary Gram positive organism 04/22/18 Unknown Biopsy - Bone Gram Stain - Final 04/22/18 Unknown Biopsy - Bone Wound Culture - Preliminary Mixed Gram Positive Organisms 04/22/18 Unknown Biopsy - Tissue Gram Stain - Final 04/22/18 Unknown Biopsy - Tissue Wound Culture - Preliminary Mixed Gram Positive Organisms 04/22/18 Unknown Biopsy - Bone Gram Stain - Final 04/22/18 Unknown Biopsy - Bone Wound Culture - Preliminary Mixed Gram Positive Organisms 04/21/18 16:15 Wound - Hip Gram Stain - Final 04/21/18 16:15 Wound - Hip Wound Culture - Preliminary Staphylococcus aureus Gram positive organism GNR lactose compensation advisor Weight used for dosin.5 kg Estimated Creatinine Clearance: ~47ml/min Goal Trough: 10-15 mcg/mL Pharmacy Plan for Drug Dosing: Vancomycin trough of 04.23.18 was 13.4 (goal range 10-15 mcg/ml). Renal function about same, Cr 1.34, CrCl 47 ml/min. Will continue same regimen and get another trough level before 4th day of dosing. Pharmacy Service will continue to monitor and adjust dosing as required. Follow-Up Labs: Trough Vancomycin - on 04.27.18 @1930 before 2000 dose
[2018-04-23] MEDS: Pravastatin 40 MG Tablet PO (21:49)
[2018-04-23 22:00] LABS: Bedside Glucose 375 mg/dL (70-110)
[2018-04-23] MEDS: Temazepam 15 MG Capsule PO (23:16)
[2018-04-24 05:36] LABS: Absolute Lymphocyte Count 1.17 X10^3/ul (0.83-4.51); Absolute Neutrophil Count 4.3 X10^3/uL (2.0-7.7); Basophil# 0.02 X10^3/uL; Basophil% 0.3 % (0-1); Eosinophil# 0.78 X10^3/uL; Eosinophils% 11.2 % (0-5); Hematocrit 31.3 % (40-54); Hemoglobin 9.4 g/dl (13.0-16.5); Lymphocyte # 1.17 X10^3/ul (4.0); Lymphocyte % 16.7 % (19-41); Mean Corpuscular Hgb 26.9 pg (27.0-32.0); Mean Corpuscular Volume 89.7 fL (80-94); Mean Platelet Vol. 9.3 fl (6.2-12.0); Monocyte# 0.64 X10^3/uL; Monocyte% 9.2 % (0-10); Neutrophil % 61.5 % (47-70); Platelet Count 265 K/mm3 (150-450); RBC Distribution Width CV 15.6 % (11.6-14.6); Red Blood Count 3.49 M/mm3 (4.6-6.2)
[2018-04-24 05:37] LABS: POSITIVE COUNT NO; POSITIVE DIFFERENTIAL NO; POSITIVE MORPHOLOGY NO
[2018-04-24 05:43] LABS: Anion Gap 8 (5-15); BUN 41 mg/dL (7-18); BUN/Creat Ratio 31.3 RATIO (10-20); Calcium,Total 7.4 mg/dL (8.5-10.1); Chloride 115 mmol/L (98-107); Creatinine, Serum 1.31 mg/dL (0.70-1.30); EST Glomerular Filtration Rate 57 mL/min (>60); Est Glom Filt Rate - Afr Amer 69 mL/min (>60); Estimated Creatinine Clearance 47.93 ml/min; Glucose 322 mg/dL (74-106); Potassium 4.8 mmol/L (3.5-5.1); Sodium Level 140 mmol/L (136-145)
[2018-04-24] MEDS: Gabapentin 300 MG Capsule PO ×2 (06:09→22:15)
[2018-04-24] MEDS: Levothyroxine 25 MCG TABLET PO (06:09)
[2018-04-24] MEDS: Insulin Lispro 100 UNIT/ML INSULN.PEN SC ×4 (06:16→22:16)
[2018-04-24 06:17] VITALS: BP 138/60; PULSE 86; RESP 18; TEMP 36.4; O2SAT 100
[2018-04-24 06:31] LABS: Bedside Glucose 293 mg/dL (70-110)
[2018-04-24 09:30] VITALS: BP 127/65; PULSE 87; RESP 16; TEMP 36.6; O2SAT 100
[2018-04-24 09:42] VITALS: PULSE 87
[2018-04-24] MEDS: Metoprolol Tartrate 25 MG Tablet 12.5 MG PO ×2 (09:42→22:15)
[2018-04-24] MEDS: Multivitamins,Ther W-Minerals Tablet 1 TABLET PO (09:42)
[2018-04-24] MEDS: Glucerna Shake 120 ML LIQUID PO ×2 (09:42→13:47)
[2018-04-24] MEDS: Ascorbic Acid 500 MG Tablet 1000 MG PO (09:42)
[2018-04-24] MEDS: Meloxicam 15 MG Tablet PO (09:43)
[2018-04-24] MEDS: Pantoprazole Sodium 40 MG Tablet PO (09:43)
[2018-04-24] MEDS: Heparin Injection (Vial) 5,000 UNIT/ML VIAL 5000 UNIT SC ×2 (09:43→22:16)
[2018-04-24] MEDS: 0.9% NaCl Peripheral Flush Adult/Peds IV (09:46)
--- NOTE | 2018-04-24 11:23 | PCM.RX.CS ---
Consult Pharmacy has been consulted to manage selected antiobiotic: Vancomycin Type of Consult: Follow-up Suspected Infection: Osteomyelitis Prior Doses of Antibiotics Received/Current Regimen: Currently on 750mg iv q24h Labs: Sodium 140 mmol/L (136-145) 04/24/18 05:18 Potassium 4.8 mmol/L (3.5-5.1) 04/24/18 05:18 Chloride 115 mmol/L (98-107) H 04/24/18 05:18 Carbon Dioxide 17.0 mmol/L (21.0-32.0) L 04/24/18 05:18 Anion Gap 8 (5-15) 04/24/18 05:18 BUN 41 mg/dL (7-18) H 04/24/18 05:18 Creatinine 1.31 mg/dL (0.70-1.30) H 04/24/18 05:18 Est GFR (MDRD) Af Amer 69 mL/min (>60) 04/24/18 05:18 Est GFR (MDRD) Non-Af 57 mL/min (>60) L 04/24/18 05:18 BUN/Creatinine Ratio 31.3 RATIO (10-20) H 04/24/18 05:18 Glucose 322 mg/dL (74-106) H 04/24/18 05:18 Vancomycin Trough 13.4 ug/mL (5.0-15.0) 04/23/18 19:40 Microbiology: Microbiology 04/22/18 Unknown Biopsy - Ischium Gram Stain - Final 04/22/18 Unknown Biopsy - Ischium Wound Culture - Preliminary Staphylococcus aureus 04/22/18 Unknown Biopsy - Bone Gram Stain - Final 04/22/18 Unknown Biopsy - Bone Wound Culture - Preliminary Staphylococcus aureus Gram Positive Cocci 04/22/18 Unknown Biopsy - Tissue Gram Stain - Final 04/22/18 Unknown Biopsy - Tissue Wound Culture - Preliminary Staphylococcus aureus Gram Positive Cocci 04/22/18 Unknown Biopsy - Bone Gram Stain - Final 04/22/18 Unknown Biopsy - Bone Wound Culture - Preliminary Staphylococcus aureus Gram Positive Cocci 04/21/18 16:15 Wound - Hip Gram Stain - Final 04/21/18 16:15 Wound - Hip Wound Culture - Final Meth. resistant Staph. aureus Enterococcus faecalis Klebsiella pneumoniae sp pneum 04/21/18 16:15 Wound - Hip Anaerobic Culture - Preliminary Checking for anaerobes, further studies to follow. Weight used for dosin.5 kg Estimated Creatinine Clearance: ~48ml/min Goal Trough: 15-20 mcg/mL Pharmacy Plan for Drug Dosing: Discussed patient with Dr. Arnold. Due to concern of osteomyelitis will increase dose to 1gm iv q24h with trough goal range of 15-20 mcg/ml. Trough level on 04.27.18 has been ordered. Pharmacy Service will continue to monitor and adjust dosing as required. Follow-Up Labs: Trough Vancomycin - 04.27.18 @1930 before 2000 dose
[2018-04-24 11:56] LABS: Bedside Glucose 363 mg/dL (70-110)
--- NOTE | 2018-04-24 13:26 | PN.ID_ITS ---
Patient Problems: Active and Suspected Problems (Last Reviewed 09/24/17 @ 22:20 by Sascha Hadley MD) Abscess of right hip (Acute) Methicillin resistant Staphylococcus aureus infection (Acute) Family history of skin cancer (Acute) Infected pressure ulcer (Acute) Subjective: Feeling ok, no fever, no n/v/d. - Physical Exam General: Alert, Cooperative, No apparent distress Lungs: Clear to auscultation, Normal air movement Cardiovascular: Regular rate, Regular Rhythm Abdomen: Soft, Non Tender, Non-Distended Skin: Ulcer/ Wound - reviewed photo Vital Signs Temp Pulse Resp BP Pulse Ox 97.9 F 87 16 127/65 H 100 04/24/18 09:30 04/24/18 09:42 04/24/18 09:30 04/24/18 09:30 04/24/18 09:30 Oxygen Delivery Method Room Air Weight: 68.5 kg Body Mass Index (BMI) 21.6 Finger Stick Blood Glucose 160 Intake and Output for Last 24 Hours 04/22/18 04/23/18 04/24/18 23:59 23:59 23:59 Intake Total 4127 / 4127 1884 / 1884 1792 / 1792 Output Total 1050 / 1050 1300 / 1300 1675 / 1675 Balance 3077 / 3077 584 / 584 117 / 117 Microbiology Past 72 Hours 04/22/18 Unknown Gram Stain - Final Biopsy - Ischium Wound Culture - Preliminary Staphylococcus aureus 04/22/18 Unknown Gram Stain - Final Biopsy - Bone Wound Culture - Preliminary Staphylococcus aureus Gram Positive Cocci 04/22/18 Unknown Gram Stain - Final Biopsy - Tissue Wound Culture - Preliminary Staphylococcus aureus Gram Positive Cocci 04/22/18 Unknown Gram Stain - Final Biopsy - Bone Wound Culture - Preliminary Staphylococcus aureus Gram Positive Cocci 04/21/18 16:15 Gram Stain - Final Wound - Hip Wound Culture - Final Meth. resistant Staph. aureus Enterococcus faecalis Klebsiella pneumoniae sp pneum Anaerobic Culture - Preliminary Checking for anaerobes, further studies to follow. Laboratory Tests Past 24 Hrs 04/23/18 04/24/18 04/24/18 19:40 05:18 05:18 WBC 7.0 RBC 3.49 L Hgb 9.4 L Hct 31.3 L MCV 89.7 MCH 26.9 L MCHC 30.0 L RDW 15.6 H RDW Differential 51.0 H Plt Count 265 MPV 9.3 Immature Gran % (Auto) 1.100 H Neut % (Auto) 61.5 Lymph % (Auto) 16.7 L [place] % (Auto) 9.2 Eos % (Auto) 11.2 H Baso % (Auto) 0.3 Absolute Neuts (auto) 4.3 Absolute Lymphs (auto) 1.17 Total Counted Not Reportable Sodium 140 Potassium 4.8 Chloride 115 H Carbon Dioxide 17.0 L Anion Gap 8 BUN 41 H Creatinine 1.31 H Estim Creat Clear Calc 47.93 Est GFR (MDRD) Af Amer 69 Est GFR (MDRD) Non-Af 57 L BUN/Creatinine Ratio 31.3 H Glucose 322 H Calcium 7.4 L Vancomycin Trough 13.4 POC Glucose 04/24/18 04/24/18 04/23/18 11:45 06:12 21:46 POC Glucose 363 H 293 H 375 H 04/23/18 16:13 POC Glucose 325 H Medical Necessity - Tobacco Use Smoking Status: Never smoker Tobacco Use: Non-smoker Route of nutrition/ use of supplements: [] Nutritional Intake: [] IV Site: [] Lozano Catheter: [] - Assessment/Plan Antibiotics: [] Assessment/Plan: [] Active and Suspected Problems (Last Reviewed 09/24/17 @ 22:20 by Sascha Hadley MD) Abscess of right hip (Acute) Methicillin resistant Staphylococcus aureus infection (Acute) Family history of skin cancer (Acute) Infected pressure ulcer (Acute) R hip osteo with associated abscess - on vanc/zosyn. OR 04/[address] Lutz. 03/16/18 wound cx with mrsa, prevotella, anaerobes. Surg cx with MRSA, enterococcus, klebsiella. Narrow abx to vanc, unasyn for 6 week course, stop date 06/02/18, weekly bmp, cbc, esr, and vanc trough. I can follow him at [facility] in [place] if he goes there. Will follow, d/w primary team.
[2018-04-24] MEDS: Triamcinolone 0.5% Cream 1 APPLIC TOPICAL ×2 (13:48→22:17)
--- NOTE | 2018-04-24 14:21 | CASEMGMT ---
Addendum entered by Rodrick Duran 04/24/18 15:11: Rounds with Dr. Lutz. Pt will remain here over weekend. Aware LTAC referral has been made and insurance approval is needed prior to dc. Per Dr. lutz, Hyperbaric can be started @ LTAC when available and would be daily treatment. This information was called to Kamini Schneider @ [facility]. Radhames HOLDEN Original Note: RN CHERYL Note: Spoke at length with pt re: dc planning of LTAC and second choice of [facility]. Pt had many questions, concerns. Explained care @ LTAC, specialized wound care, availability of Hyperbaric. Explained again re: insurance approval prior to admission and information will be faxed on Friday for insurance approval. Discussed that physician will determine when discharge is appropriate and CM will assist with transfer. -Call to Kamini @ [facility]. Updated that per Dr. Arnold pt will be on 6 week course of Vancomycin IV and Unasyn IV. Updated clinical faxed. Per Kamini, updated clinicals will be needed on Friday, then insurance will make determination. Radhames HOLDEN
[2018-04-24 16:30] VITALS: BP 163/73; PULSE 80; RESP 16; TEMP 36.9; O2SAT 100
--- NOTE | 2018-04-24 16:49 | PCM.PN.SRG ---
Patient Problems: Active and Suspected Problems (Last Reviewed 09/24/17 @ 22:20 by Sascha Hadley MD) Abscess of right hip (Acute) Methicillin resistant Staphylococcus aureus infection (Acute) Family history of skin cancer (Acute) Infected pressure ulcer (Acute) Subjective: Postop #2 Patient is resting comfortably. VAC in place. - Physical Exam General: Alert, Oriented x3 HEENT: PERRLA, EOMI Oral: Moist Mucosa Neck: Supple Abdomen: Soft, Non-Distended Skin: Ulcer/ Wound - right hip disarticulation/ischial wound is stable. VAC in place. Minimal drainage in the canister. Left lower extremity ulcers are stable and dressed with Aquacel Silver. Neurological: Cranial nerves II-XII grossly intact Psych/Mental Status: Normal Affect, Appropriate Vital Signs Temp Pulse Resp BP Pulse Ox 97.9 F 87 16 127/65 H 100 04/24/18 09:30 04/24/18 09:42 04/24/18 09:30 04/24/18 09:30 04/24/18 09:30 Oxygen Delivery Method Room Air Weight: 151 lb 0.266 oz Body Mass Index (BMI) 21.6 Finger Stick Blood Glucose 160 Intake and Output for Last 24 Hours 04/22/18 04/23/18 04/24/18 23:59 23:59 23:59 Intake Total 4127 / 4127 1884 / 1884 1792 / 1792 Output Total 1050 / 1050 1300 / 1300 1675 / 1675 Balance 3077 / 3077 584 / 584 117 / 117 Microbiology Past 72 Hours 04/22/18 Unknown Gram Stain - Final Biopsy - Ischium Wound Culture - Preliminary Staphylococcus aureus 04/22/18 Unknown Gram Stain - Final Biopsy - Bone Wound Culture - Preliminary Staphylococcus aureus Gram Positive Cocci 04/22/18 Unknown Gram Stain - Final Biopsy - Tissue Wound Culture - Preliminary Staphylococcus aureus Gram Positive Cocci 04/22/18 Unknown Gram Stain - Final Biopsy - Bone Wound Culture - Preliminary Staphylococcus aureus Gram Positive Cocci 04/21/18 16:15 Gram Stain - Final Wound - Hip Wound Culture - Final Meth. resistant Staph. aureus Enterococcus faecalis Klebsiella pneumoniae sp pneum Anaerobic Culture - Preliminary Checking for anaerobes, further studies to follow. Pathology - pending. Laboratory Tests Past 24 Hrs 04/23/18 04/24/18 04/24/18 19:40 05:18 05:18 WBC 7.0 RBC 3.49 L Hgb 9.4 L Hct 31.3 L MCV 89.7 MCH 26.9 L MCHC 30.0 L RDW 15.6 H RDW Differential 51.0 H Plt Count 265 MPV 9.3 Immature Gran % (Auto) 1.100 H Neut % (Auto) 61.5 Lymph % (Auto) 16.7 L [place] % (Auto) 9.2 Eos % (Auto) 11.2 H Baso % (Auto) 0.3 Absolute Neuts (auto) 4.3 Absolute Lymphs (auto) 1.17 Total Counted Not Reportable Sodium 140 Potassium 4.8 Chloride 115 H Carbon Dioxide 17.0 L Anion Gap 8 BUN 41 H Creatinine 1.31 H Estim Creat Clear Calc 47.93 Est GFR (MDRD) Af Amer 69 Est GFR (MDRD) Non-Af 57 L BUN/Creatinine Ratio 31.3 H Glucose 322 H Calcium 7.4 L Vancomycin Trough 13.4 POC Glucose 04/24/18 04/24/18 04/23/18 11:45 06:12 21:46 POC Glucose 363 H 293 H 375 H Medical Necessity - Tobacco Use Smoking Status: Never smoker Tobacco Use: Non-smoker Assessment/Plan All Active Problems (Last Reviewed 09/24/17 @ 22:20 by Sascha Hadley MD) Abscess of right hip (Acute) Methicillin resistant Staphylococcus aureus infection (Acute) Family history of skin cancer (Acute) Blister of left leg without infection (Acute) Hypotension (Acute) Probable sepsis (Acute) Infected pressure ulcer (Acute) Abdominal pain (Acute) Acute kidney injury (Acute) Septic shock (Acute) Pressure ulcer of sacral region, stage 3 (Acute) Scrotal ulcer (Acute) Complicated UTI (urinary tract infection) (Acute) Constipation (Acute) Pressure ulcer of perianal region (Resolved) Pressure ulcer of buttock (Resolved) UTI (urinary tract infection) (Acute) 1. MRSA abscess right hip. 2. 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 5. MRSA. 6. Osteomyelitis. 7. Diabetes mellitus. 8. Peripheral vascular disease. 9. Paraplegia. 10. s/p incision and drainage right hip disarticulation MRSA abscess and excision infected MRSA right hip disarticulation pressure sore, Stage IV, with partial ostectomy for osteomyelitis and excision infected MRSA right ischial pressure sore, Stage IV, with partial ostectomy for osteomyelitis. 11. Anemia of chronic disease, acute on chronic, stable. Wound is stable with no active bleeding. VAC placed today without difficulty. Continue Vancomycin. The Zosyn was changed to Unasyn because of the culture showing MRSA, Enterococcus faecalis, and Klebsiella pneumoniae. Pathology is pending. Prealbumin was 12.2. Encourage nutritional supplementation with protein to help the healing process. Hgb is 9.4 which is decreased from 10.4 Received PRBC perioperatively. Had operative blood loss of 450 ml. Suspect osteomyelitis. Would benefit from HBO. Will evaluate for LTAC.
[2018-04-24 17:16] LABS: Bedside Glucose 335 mg/dL (70-110)
--- NOTE | 2018-04-24 18:44 | PCM.PROGNOTE ---
Patient Problems: Active and Suspected Problems (Last Reviewed 09/24/17 @ 22:20 by Sascha Hadley MD) Abscess of right hip (Acute) Methicillin resistant Staphylococcus aureus infection (Acute) Family history of skin cancer (Acute) Infected pressure ulcer (Acute) Subjective: Patient was seen and examined today, he complained of having some skin irritation on the outside of his right ear, I examined the area and it appears to be flaking and slightly reddened, it may be atopic dermatitis. - Physical Exam General: Alert, Oriented x3, Cooperative, No apparent distress, Well developed HEENT: Atraumatic, PERRLA, EOMI, Normocephalic, - - There is mild excoriation of areas on the skin outside the right ear canal Oral: Moist Mucosa Neck: Supple, Trachea Midline, Thyroid Normal Size and Texture Lungs: Clear to auscultation, Normal air movement, No rhonchi, No wheeze, No rales Cardiovascular: Regular rate, Regular Rhythm, Normal S1, Normal S2, No murmurs, No Ectopic Activity, PMI Normal, No rub noted, No Gallop Abdomen: Bowel Sounds Present, Soft, Non Tender, Non-Distended, - - Urostomy and colostomy are present Extremities: No edema, Capillary Refill Less than 3 Seconds Skin: No rashes, No breakdown Neurological: Cranial nerves II-XII grossly intact, - - Patient is paraplegic Psych/Mental Status: Normal Affect, Appropriate, Alert and oriented to time, place, person, mood and affect Vital Signs Temp Pulse Resp BP Pulse Ox 98.4 F 80 16 163/73 H 100 04/24/18 16:30 04/24/18 16:30 04/24/18 16:30 04/24/18 16:30 04/24/18 16:30 Oxygen Delivery Method Room Air Weight: 68.5 kg Body Mass Index (BMI) 21.6 Finger Stick Blood Glucose 160 Intake and Output for Last 24 Hours 04/22/18 04/23/18 04/24/18 23:59 23:59 23:59 Intake Total 4127 / 4127 1884 / 1884 2382 / 2382 Output Total 1050 / 1050 1300 / 1300 2325 / 2325 Balance 3077 / 3077 584 / 584 57 / 57 Microbiology Past 72 Hours 04/22/18 Unknown Gram Stain - Final Biopsy - Ischium Wound Culture - Preliminary Staphylococcus aureus 04/22/18 Unknown Gram Stain - Final Biopsy - Bone Wound Culture - Preliminary Staphylococcus aureus Gram Positive Cocci 04/22/18 Unknown Gram Stain - Final Biopsy - Tissue Wound Culture - Preliminary Staphylococcus aureus Gram Positive Cocci 04/22/18 Unknown Gram Stain - Final Biopsy - Bone Wound Culture - Preliminary Staphylococcus aureus Gram Positive Cocci 04/21/18 16:15 Gram Stain - Final Wound - Hip Wound Culture - Final Meth. resistant Staph. aureus Enterococcus faecalis Klebsiella pneumoniae sp pneum Anaerobic Culture - Preliminary Checking for anaerobes, further studies to follow. Laboratory Tests Past 24 Hrs 04/23/18 04/24/18 04/24/18 19:40 05:18 05:18 WBC 7.0 RBC 3.49 L Hgb 9.4 L Hct 31.3 L MCV 89.7 MCH 26.9 L MCHC 30.0 L RDW 15.6 H RDW Differential 51.0 H Plt Count 265 MPV 9.3 Immature Gran % (Auto) 1.100 H Neut % (Auto) 61.5 Lymph % (Auto) 16.7 L [place] % (Auto) 9.2 Eos % (Auto) 11.2 H Baso % (Auto) 0.3 Absolute Neuts (auto) 4.3 Absolute Lymphs (auto) 1.17 Total Counted Not Reportable Sodium 140 Potassium 4.8 Chloride 115 H Carbon Dioxide 17.0 L Anion Gap 8 BUN 41 H Creatinine 1.31 H Estim Creat Clear Calc 47.93 Est GFR (MDRD) Af Amer 69 Est GFR (MDRD) Non-Af 57 L BUN/Creatinine Ratio 31.3 H Glucose 322 H Calcium 7.4 L Vancomycin Trough 13.4 POC Glucose 04/24/18 04/24/18 04/24/18 17:05 11:45 06:12 POC Glucose 335 H 363 H 293 H 04/23/18 21:46 POC Glucose 375 H Medical Necessity - Tobacco Use Smoking Status: Never smoker Tobacco Use: Non-smoker Assessment/Plan All Active Problems (Last Reviewed 09/24/17 @ 22:20 by Sascha Hadley MD) Abscess of right hip (Acute) Methicillin resistant Staphylococcus aureus infection (Acute) Family history of skin cancer (Acute) Blister of left leg without infection (Acute) Hypotension (Acute) Probable sepsis (Acute) Infected pressure ulcer (Acute) Abdominal pain (Acute) Acute kidney injury (Acute) Septic shock (Acute) Pressure ulcer of sacral region, stage 3 (Acute) Scrotal ulcer (Acute) Complicated UTI (urinary tract infection) (Acute) Constipation (Acute) Pressure ulcer of perianal region (Resolved) Pressure ulcer of buttock (Resolved) UTI (urinary tract infection) (Acute) #1 right hip osteoarthritis with associated [id number] staph aureus, Enterococcus faecalis, Klebsiella pneumoniae-continue treatment per infectious diseases. We are awaiting assessment by an LTAC #2 abscess of the right hip area-with above organisms-continue present antibiotic treatment per ID #3 paraplegia at T4 level-chronic #4 type 2 diabetes-continue monitor blood sugars, patient is on sliding scale insulin #5 hypertension #6 chronic kidney disease stage III secondary to type 2 diabetes #7 hyperlipidemia #8 hypothyroidism #9 pressure injury left lateral foot-stage II, left lateral lower leg-unstageable, left hip-stage II:continue treatment per wound care nurse Code Visit Inpatient E&M: 51003 Subs Hosp L2
[2018-04-24] MEDS: Vancomycin IV 1,000 MG/200 ML BAG 200 MG IV (20:32)
[2018-04-24 20:36] VITALS: BP 153/69; PULSE 80; RESP 18; TEMP 37.2; O2SAT 99
[2018-04-24 22:15] VITALS: BP 153/69; PULSE 80
[2018-04-24 22:16] LABS: Bedside Glucose 422 mg/dL (70-110)
[2018-04-24] MEDS: Temazepam 15 MG Capsule PO (22:16)
[2018-04-24] MEDS: Pravastatin 40 MG Tablet PO (22:16)
[2018-04-25] VITALS (7 sets, daily range): BP systolic 148–174; BP diastolic 66–79; PULSE 80–89; RESP 16–18; TEMP 36.1–36.8; O2SAT 96–100
[2018-04-25] MEDS: Levothyroxine 25 MCG TABLET PO (05:58)
[2018-04-25] MEDS: Insulin Lispro 100 UNIT/ML INSULN.PEN SC ×4 (06:01→21:27)
[2018-04-25 06:38] LABS: Absolute Lymphocyte Count 1.18 X10^3/ul (0.83-4.51); Absolute Neutrophil Count 4.9 X10^3/uL (2.0-7.7); Basophil# 0.02 X10^3/uL; Basophil% 0.3 % (0-1); Eosinophils% 11.7 % (0-5); Hematocrit 32.1 % (40-54); Hemoglobin 9.5 g/dl (13.0-16.5); Lymphocyte # 1.18 X10^3/ul (4.0); Lymphocyte % 15.4 % (19-41); Mean Corp Hgb Conc 29.6 g/gl (32-36); Mean Corpuscular Hgb 26.6 pg (27.0-32.0); Mean Corpuscular Volume 89.9 fL (80-94); Mean Platelet Vol. 9.4 fl (6.2-12.0); Monocyte# 0.57 X10^3/uL; Monocyte% 7.4 % (0-10); Neutrophil # 4.85 X10^3/uL (2.7-7.7); Neutrophil % 63.1 % (47-70); Platelet Count 277 K/mm3 (150-450); RBC Distribution Width CV 15.6 % (11.6-14.6); RBC Distribution Width SD 50.3 fl (35.1-43.9); Red Blood Count 3.57 M/mm3 (4.6-6.2); White Blood Count 7.7 K/mm3 (4.4-11.0)
[2018-04-25 06:39] LABS: POSITIVE COUNT YES; POSITIVE DIFFERENTIAL NO; POSITIVE MORPHOLOGY YES
[2018-04-25 06:48] LABS: Anion Gap 6 (5-15); BUN 38 mg/dL (7-18); BUN/Creat Ratio 29.5 RATIO (10-20); Calcium,Total 7.7 mg/dL (8.5-10.1); Chloride 115 mmol/L (98-107); Creatinine, Serum 1.29 mg/dL (0.70-1.30); EST Glomerular Filtration Rate 58 mL/min (>60); Est Glom Filt Rate - Afr Amer 70 mL/min (>60); Estimated Creatinine Clearance 48.68 ml/min; Glucose 270 mg/dL (74-106); Potassium 4.9 mmol/L (3.5-5.1); Sodium Level 140 mmol/L (136-145)
[2018-04-25 07:20] LABS: Bedside Glucose 195 mg/dL (70-110)
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
--- NOTE | 2018-04-25 08:02 | NURSING ---
Dr. Islas here on the floor on the computer. Dr. Holloway was Verbally informed of the results that were taken of the wound culture in surgery. Vancomycin Resistant Entercoccus F.
[2018-04-25] MEDS: Metoprolol Tartrate 25 MG Tablet 12.5 MG PO ×2 (08:25→21:24)
[2018-04-25] MEDS: Pantoprazole Sodium 40 MG Tablet PO (08:25)
[2018-04-25] MEDS: Multivitamins,Ther W-Minerals Tablet 1 TABLET PO (08:25)
[2018-04-25] MEDS: Ascorbic Acid 500 MG Tablet 1000 MG PO (08:26)
[2018-04-25] MEDS: Meloxicam 15 MG Tablet PO (08:26)
[2018-04-25] MEDS: Heparin Injection (Vial) 5,000 UNIT/ML VIAL 5000 UNIT SC ×2 (08:26→21:20)
[2018-04-25] MEDS: Glucerna Shake 120 ML LIQUID PO ×4 (08:26→21:19)
[2018-04-25] MEDS: Triamcinolone 0.5% Cream 1 APPLIC TOPICAL ×2 (08:27→21:31)
[2018-04-25 12:11] LABS: Bedside Glucose 311 mg/dL (70-110)
[2018-04-25] MEDS: Gabapentin 300 MG Capsule PO ×2 (13:51→21:25)
[2018-04-25] MEDS: Linezolid 600 MG Tablet PO ×2 (13:52→21:29)
[2018-04-25 17:01] LABS: Bedside Glucose 336 mg/dL (70-110)
[2018-04-25] MEDS: 0.9% NaCl Peripheral Flush Adult/Peds IV (21:17)
[2018-04-25] MEDS: Temazepam 15 MG Capsule PO (21:24)
[2018-04-25] MEDS: Pravastatin 40 MG Tablet PO (21:25)
[2018-04-25 21:40] LABS: Bedside Glucose 306 mg/dL (70-110)
[2018-04-26 01:31] LABS: Bedside Glucose 298 mg/dL (70-110)
[2018-04-26 02:01] VITALS: BP 146/75; PULSE 88; RESP 16; TEMP 36.9; O2SAT 98
[2018-04-26] MEDS: Levothyroxine 25 MCG TABLET PO (06:35)
[2018-04-26] MEDS: Insulin Lispro 100 UNIT/ML INSULN.PEN SC ×4 (06:38→22:00)
[2018-04-26 06:51] LABS: Bedside Glucose 240 mg/dL (70-110)
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
[2018-04-26 08:26] VITALS: BP 155/79; PULSE 81; RESP 16; TEMP 36.8; O2SAT 96
[2018-04-26] MEDS: Pantoprazole Sodium 40 MG Tablet PO (08:28)
[2018-04-26 08:29] VITALS: PULSE 81
[2018-04-26] MEDS: Ascorbic Acid 500 MG Tablet 1000 MG PO (08:29)
[2018-04-26] MEDS: Glucerna Shake 120 ML LIQUID PO ×4 (08:29→22:23)
[2018-04-26] MEDS: Multivitamins,Ther W-Minerals Tablet 1 TABLET PO (08:29)
[2018-04-26] MEDS: Heparin Injection (Vial) 5,000 UNIT/ML VIAL 5000 UNIT SC ×2 (08:29→21:57)
[2018-04-26] MEDS: Meloxicam 15 MG Tablet PO (08:29)
[2018-04-26] MEDS: Metoprolol Tartrate 25 MG Tablet 12.5 MG PO (08:29)
[2018-04-26] MEDS: Triamcinolone 0.5% Cream 1 APPLIC TOPICAL ×2 (08:30→22:04)
[2018-04-26] MEDS: Linezolid 600 MG Tablet PO ×2 (08:31→21:59)
[2018-04-26 11:55] LABS: Bedside Glucose 282 mg/dL (70-110)
[2018-04-26 14:40] VITALS: BP 168/75; PULSE 75; RESP 16; TEMP 36.7; O2SAT 95
[2018-04-26] MEDS: Mag Hydrox/Al Hydrox/Simeth 30 ML UDC PO (19:26)
[2018-04-26 21:46] LABS: Bedside Glucose 271 mg/dL (70-110)
[2018-04-26 21:52] VITALS: BP 153/87; PULSE 80; RESP 16; TEMP 36.9; O2SAT 99
[2018-04-26 21:56] VITALS: PULSE 80
[2018-04-26] MEDS: Metoprolol Tartrate 25 MG Tablet PO (21:56)
[2018-04-26] MEDS: Pravastatin 40 MG Tablet PO (21:56)
[2018-04-26] MEDS: Gabapentin 300 MG Capsule PO (21:56)
[2018-04-26] MEDS: Temazepam 15 MG Capsule PO (21:56)
[2018-04-26 22:10] LABS: Bedside Glucose 212 mg/dL (70-110)
[2018-04-27 01:15] LABS: Bedside Glucose 235 mg/dL (70-110)
[2018-04-27 03:49] VITALS: BP 142/61; PULSE 84; RESP 16; TEMP 36.6; O2SAT 99
[2018-04-27 06:24] LABS: Absolute Lymphocyte Count 1.56 X10^3/ul (0.83-4.51); Absolute Neutrophil Count 5.7 X10^3/uL (2.0-7.7); Basophil# 0.03 X10^3/uL; Basophil% 0.3 % (0-1); Eosinophil# 1.18 X10^3/uL; Eosinophils% 12.9 % (0-5); Hematocrit 30.7 % (40-54); Hemoglobin 9.4 g/dl (13.0-16.5); Lymphocyte # 1.56 X10^3/ul (4.0); Lymphocyte % 17.1 % (19-41); Mean Corp Hgb Conc 30.6 g/gl (32-36); Mean Corpuscular Hgb 27.2 pg (27.0-32.0); Mean Platelet Vol. 9.4 fl (6.2-12.0); Monocyte# 0.55 X10^3/uL; Neutrophil # 5.65 X10^3/uL (2.7-7.7); Neutrophil % 62.1 % (47-70); Platelet Count 320 K/mm3 (150-450); RBC Distribution Width CV 15.5 % (11.6-14.6); RBC Distribution Width SD 49.4 fl (35.1-43.9); Red Blood Count 3.45 M/mm3 (4.6-6.2); White Blood Count 9.1 K/mm3 (4.4-11.0)
[2018-04-27 06:29] LABS: POSITIVE COUNT NO; POSITIVE DIFFERENTIAL NO; POSITIVE MORPHOLOGY NO
[2018-04-27 06:35] LABS: Anion Gap 7 (5-15); BUN 44 mg/dL (7-18); BUN/Creat Ratio 35.5 RATIO (10-20); Calcium,Total 7.8 mg/dL (8.5-10.1); Chloride 114 mmol/L (98-107); Creatinine, Serum 1.24 mg/dL (0.70-1.30); EST Glomerular Filtration Rate 61 mL/min (>60); Est Glom Filt Rate - Afr Amer 73 mL/min (>60); Estimated Creatinine Clearance 50.64 ml/min; Glucose 224 mg/dL (74-106); Potassium 5.1 mmol/L (3.5-5.1); Sodium Level 140 mmol/L (136-145)
[2018-04-27] MEDS: Insulin Lispro 100 UNIT/ML INSULN.PEN SC ×4 (06:40→21:25)
[2018-04-27] MEDS: Levothyroxine 25 MCG TABLET PO (06:40)
[2018-04-27 06:50] LABS: Bedside Glucose 200 mg/dL (70-110)
--- NOTE | 2018-04-27 09:42 | CASEMGMT ---
Addendum entered by Rodrick Duran 04/27/18 09:50: Call to Kamini Joseph @ [facility]. Message left re: clinicals were faxed and pt is ready for dc today if Insurance is approved. Radhames PEREIRA RN ACM Original Note: YOVANY LUNA Note: Updated clinical and micro reports faxed to [facility] @ . Royce PEDROZA CM ACM
[2018-04-27 09:45] VITALS: BP 157/81; PULSE 89; RESP 16; TEMP 36.6; O2SAT 99
[2018-04-27] MEDS: Linezolid 600 MG Tablet PO ×2 (09:47→21:23)
[2018-04-27 09:48] VITALS: PULSE 89
[2018-04-27] MEDS: Metoprolol Tartrate 25 MG Tablet PO ×2 (09:48→21:23)
[2018-04-27] MEDS: Multivitamins,Ther W-Minerals Tablet 1 TABLET PO (09:48)
[2018-04-27] MEDS: Meloxicam 15 MG Tablet PO (09:48)
[2018-04-27] MEDS: Pantoprazole Sodium 40 MG Tablet PO (09:48)
[2018-04-27] MEDS: Ascorbic Acid 500 MG Tablet 1000 MG PO (09:48)
[2018-04-27] MEDS: Triamcinolone 0.5% Cream 1 APPLIC TOPICAL ×2 (09:48→21:27)
[2018-04-27] MEDS: Heparin Injection (Vial) 5,000 UNIT/ML VIAL 5000 UNIT SC ×2 (09:48→21:25)
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
--- NOTE | 2018-04-27 10:23 | PCM.PN.ID ---
Patient Problems: Active and Suspected Problems (Last Reviewed 09/24/17 @ 22:20 by Sascha Hadley MD) Infected pressure ulcer (Acute) Subjective: Feeling ok, no fever, no n/v. - Physical Exam General: Alert, Cooperative, No apparent distress Lungs: Clear to auscultation, Normal air movement Cardiovascular: Regular rate, Regular Rhythm Abdomen: Soft, Non Tender, Non-Distended Skin: Ulcer/ Wound Vital Signs Temp Pulse Resp BP Pulse Ox 97.9 F 89 16 157/81 H 99 04/27/18 09:45 04/27/18 09:48 04/27/18 09:45 04/27/18 09:45 04/27/18 09:45 Oxygen Delivery Method Room Air Weight: 68.5 kg Body Mass Index (BMI) 21.6 Finger Stick Blood Glucose 160 Intake and Output for Last 24 Hours 04/25/18 04/26/18 04/27/18 23:59 23:59 23:59 Intake Total 1819 / 1819 2118 / 2118 275 / 275 Output Total 3575 / 3575 3100 / 3100 750 / 750 Balance -1756 / -1756 -982 / -982 -475 / -475 Microbiology Past 72 Hours 04/22/18 Unknown Gram Stain - Final Biopsy - Bone Wound Culture - Final Meth. resistant Staph. aureus Vancomycin Resist. E. faecium Anaerobic Culture - Preliminary Checking for anaerobes, further studies to follow. 04/22/18 Unknown Gram Stain - Final Biopsy - Ischium Wound Culture - Final Meth. resistant Staph. aureus Anaerobic Culture - Final No anaerobic bacteria isolated. 04/22/18 Unknown Gram Stain - Final Biopsy - Bone Wound Culture - Final Meth. resistant Staph. aureus Enterococcus faecalis 04/22/18 Unknown Gram Stain - Final Biopsy - Tissue Wound Culture - Final Meth. resistant Staph. aureus Vancomycin Resist. E. faecium 04/21/18 16:15 Gram Stain - Final Wound - Hip Wound Culture - Final Meth. resistant Staph. aureus Enterococcus faecalis Klebsiella pneumoniae sp pneum Anaerobic Culture - Preliminary Checking for anaerobes, further studies to follow. Laboratory Tests Past 24 Hrs 04/27/18 04/27/18 05:45 05:45 WBC 9.1 RBC 3.45 L Hgb 9.4 L Hct 30.7 L MCV 89.0 MCH 27.2 MCHC 30.6 L RDW 15.5 H RDW Differential 49.4 H Plt Count 320 MPV 9.4 Immature Gran % (Auto) 1.600 H Neut % (Auto) 62.1 Lymph % (Auto) 17.1 L [place] % (Auto) 6.0 Eos % (Auto) 12.9 H Baso % (Auto) 0.3 Absolute Neuts (auto) 5.7 Absolute Lymphs (auto) 1.56 Total Counted Not Reportable Sodium 140 Potassium 5.1 Chloride 114 H Carbon Dioxide 19.0 L Anion Gap 7 BUN 44 H Creatinine 1.24 Estim Creat Clear Calc 50.64 Est GFR (MDRD) Af Amer 73 Est GFR (MDRD) Non-Af 61 BUN/Creatinine Ratio 35.5 H Glucose 224 H Calcium 7.8 L POC Glucose 04/27/18 04/27/18 04/26/18 06:36 01:10 21:45 POC Glucose 200 H 235 H 212 H 04/26/18 04/26/18 16:26 11:36 POC Glucose 271 H 282 H Medical Necessity - Tobacco Use Smoking Status: Never smoker Tobacco Use: Non-smoker Route of nutrition/ use of supplements: [] Nutritional Intake: [] IV Site: [] Lozano Catheter: [] - Assessment/Plan Antibiotics: [] Assessment/Plan: [] Active and Suspected Problems (Last Reviewed 09/24/17 @ 22:20 by Sascha Hadley MD) Abscess of right hip (Acute) Methicillin resistant Staphylococcus aureus infection (Acute) Family history of skin cancer (Acute) Infected pressure ulcer (Acute) R hip osteo with associated abscess - on vanc/zosyn. OR 04/[address] Lutz. 03/16/18 wound cx with mrsa, prevotella, anaerobes. Surg cx with MRSA, enterococcus, VRE, and klebsiella. On linezolid and unasyn for 6 week course, stop date 06/02/18, weekly bmp, cbc, esr. I can follow him at [facility] in [place]. If platelets start to drop, will need to change linezolid to dapto. Will follow, d/w director case
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
--- NOTE | 2018-04-27 11:30 | CASEMGMT ---
Addendum entered by Rodrick Duran 04/27/18 12:33: [facility] needing to know frequency and length of hyperbaric treatment. Call to Dr. Lutz. Hyperbaric order will be daily (M-F if they do not accommodate weekend days) and treatment length is 2 hour. Radhames VERDUGO Original Note: YOVANY LUNA Note: Per nursing, pt states if hyperbaric treatment is not available @ [facility], then he would prefer to stay locally @ SNF. YOVANY LUNA attempted to speak with pt but he is getting personal care. Call to May Schneider @ [facility] to update. She stated they are working on billing for hyperbaric treatments. Radhames HOLDEN
[2018-04-27 11:40] LABS: Bedside Glucose 268 mg/dL (70-110)
[2018-04-27 11:55] LABS: Pathologist Review Reviewed
--- NOTE | 2018-04-27 14:50 | CASEMGMT ---
YOVANY LUNA Note: Call to Kamini Schneider @ [facility]. They are still working on billing for Hyperbaric treatments and availibility. Referral has not been sent to insurance yet. Pt will not be dc'd today. -YOVANY LUNA spoke with Charlene fusing machine feeder nurse and let her know pt has stated if hyperbaric tx are not available @ [facility] he would want to stay @ SNF in this area. YOVANY LUNA and wound nurse feel LTAC level of care would be more appropriate for pt. Will need to speak with pt if [facility] is not able to arrange hyperbaric for pt. Radhames PEREIRA RN ACM
--- NOTE | 2018-04-27 15:58 | NURSING ---
wound photo: right hip
[2018-04-27 16:14] VITALS: BP 165/81; PULSE 73; RESP 16; TEMP 36.5; O2SAT 98
[2018-04-27] MEDS: Glucerna Shake 120 ML LIQUID PO (16:24)
[2018-04-27 16:26] LABS: Bedside Glucose 238 mg/dL (70-110)
[2018-04-27 21:23] VITALS: BP 150/78; PULSE 80; RESP 18; TEMP 36.8; O2SAT 99
[2018-04-27] MEDS: Pravastatin 40 MG Tablet PO (21:23)
[2018-04-27] MEDS: Gabapentin 300 MG Capsule PO (21:27)
[2018-04-27 21:35] LABS: Bedside Glucose 175 mg/dL (70-110)
[2018-04-27] MEDS: Temazepam 15 MG Capsule PO (21:35)
[2018-04-28] VITALS (7 sets, daily range): BP systolic 133–162; BP diastolic 64–78; PULSE 76–84; RESP 16–18; TEMP 36.8–37.2; O2SAT 98–99
[2018-04-28 02:16] LABS: Bedside Glucose 172 mg/dL (70-110)
[2018-04-28] MEDS: Levothyroxine 25 MCG TABLET PO (05:47)
[2018-04-28 06:55] LABS: Bedside Glucose 144 mg/dL (70-110)
[2018-04-28] MEDS: Pantoprazole Sodium 40 MG Tablet PO (08:56)
[2018-04-28] MEDS: Heparin Injection (Vial) 5,000 UNIT/ML VIAL 5000 UNIT SC ×2 (08:56→22:54)
[2018-04-28] MEDS: Meloxicam 15 MG Tablet PO (08:56)
[2018-04-28] MEDS: Linezolid 600 MG Tablet PO ×2 (08:56→22:54)
[2018-04-28] MEDS: Ascorbic Acid 500 MG Tablet 1000 MG PO (08:56)
--- NOTE | 2018-04-28 08:56 | CASEMGMT ---
YOVANY LUNA Note. Kamini Schneider from [facility] called to say they are unable to work out billing for hyperbaric so this will not be available to patient. -RN CHERYL spoke with pt who is agreeable to go to [facility] still. emotional support given re: care needs and extent of wounds. YOVANY LUNA let pt know he would be updated when precert was received. -Call to Kamini Schneider to notify pt is agreeable to transfer to [facility] @ [facility] and to start precert. No further information is needed at this time. -Dr. Islas updated on above. Pt is medically ready for [facility]. Radhames PEDROZA CM BSN
[2018-04-28] MEDS: Multivitamins,Ther W-Minerals Tablet 1 TABLET PO (08:57)
[2018-04-28] MEDS: Metoprolol Tartrate 25 MG Tablet PO ×2 (08:59→22:55)
[2018-04-28] MEDS: Glucerna Shake 120 ML LIQUID PO ×3 (08:59→16:45)
[2018-04-28] MEDS: Triamcinolone 0.5% Cream 1 APPLIC TOPICAL ×2 (09:01→22:59)
--- NOTE | 2018-04-28 10:16 | PN.ID_ITS ---
Patient Problems: Active and Suspected Problems (Last Reviewed 09/24/17 @ 22:20 by Sascha Hadley MD) Infected pressure ulcer (Acute) Subjective: Feeling ok, no fever, no n/v. - Physical Exam General: Alert, Cooperative, No apparent distress Lungs: Clear to auscultation, Normal air movement Cardiovascular: Regular rate, Regular Rhythm Abdomen: Soft, Non Tender, Non-Distended Skin: Ulcer/ Wound Vital Signs Temp Pulse Resp BP Pulse Ox 98.9 F 82 18 147/65 H 99 04/28/18 08:16 04/28/18 08:59 04/28/18 08:16 04/28/18 08:59 04/28/18 08:16 Oxygen Delivery Method Room Air Weight: 68.5 kg Body Mass Index (BMI) 21.6 Finger Stick Blood Glucose 160 Intake and Output for Last 24 Hours 04/26/18 04/27/18 04/28/18 23:59 23:59 23:59 Intake Total 2118 / 2118 1337 / 1337 749 / 749 Output Total 3100 / 3100 2370 / 2370 1370 / 1370 Balance -982 / -982 -1033 / -1033 -621 / -621 Microbiology Past 72 Hours 04/21/18 16:15 Gram Stain - Final Wound - Hip Wound Culture - Final Meth. resistant Staph. aureus Enterococcus faecalis Klebsiella pneumoniae sp pneum Anaerobic Culture - Preliminary Checking for anaerobes, further studies to follow. 04/22/18 Unknown Gram Stain - Final Biopsy - Bone Wound Culture - Final Meth. resistant Staph. aureus Enterococcus faecalis Anaerobic Culture - Final Clostridium group 04/22/18 Unknown Gram Stain - Final Biopsy - Bone Wound Culture - Final Meth. resistant Staph. aureus Vancomycin Resist. E. faecium Anaerobic Culture - Preliminary Checking for anaerobes, further studies to follow. 04/22/18 Unknown Gram Stain - Final Biopsy - Ischium Wound Culture - Final Meth. resistant Staph. aureus Anaerobic Culture - Final No anaerobic bacteria isolated. 04/22/18 Unknown Gram Stain - Final Biopsy - Tissue Wound Culture - Final Meth. resistant Staph. aureus Vancomycin Resist. E. faecium Laboratory Tests Past 24 Hrs 04/25/18 06:10 Diff Path Review Reviewed POC Glucose 04/28/18 04/28/18 04/27/18 06:48 02:08 21:22 POC Glucose 144 H 172 H 175 H 04/27/18 04/27/18 16:10 11:27 POC Glucose 238 H 268 H Medical Necessity - Tobacco Use Smoking Status: Never smoker Tobacco Use: Non-smoker Route of nutrition/ use of supplements: [] Nutritional Intake: [] IV Site: [] Lozano Catheter: [] - Assessment/Plan Antibiotics: [] Assessment/Plan: [] Active and Suspected Problems (Last Reviewed 09/24/17 @ 22:20 by Sascha Hadley MD) Abscess of right hip (Acute) Methicillin resistant Staphylococcus aureus infection (Acute) Family history of skin cancer (Acute) Infected pressure ulcer (Acute) R hip osteo with associated abscess - on vanc/zosyn. OR 04/[address] Lutz. 03/16/18 wound cx with mrsa, prevotella, anaerobes. Surg cx with MRSA, enterococcus, VRE, and klebsiella. On linezolid and unasyn for 6 week course, stop date 06/02/18, weekly bmp, cbc, esr. I can follow him at [facility] in [place]. If platelets start to drop, will need to change linezolid to dapto. Will follow. If he does not go to [facility], I can see him in 2-3 weeks at [facility].
--- NOTE | 2018-04-28 11:10 | NURSING ---
Awaiting to see if patient is approved for the LTAC. will change dressings to the left leg if patient does not go today. wound VAC is not due to be changed until tomorrow.
[2018-04-28 11:36] LABS: Bedside Glucose 253 mg/dL (70-110)
[2018-04-28] MEDS: Insulin Lispro 100 UNIT/ML INSULN.PEN SC ×3 (11:54→22:52)
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
[2018-04-28 16:26] LABS: Bedside Glucose 209 mg/dL (70-110)
[2018-04-28] MEDS: DiphenhydrAMINE 25 MG Capsule PO (16:43)
[2018-04-28] MEDS: hydrALAZINE 20 MG/ML Vial 10 MG IV (20:02)
[2018-04-28] MEDS: Hydrocortisone 2.5% Crm 1 APPLIC TOPICAL (22:55)
[2018-04-28] MEDS: Pravastatin 40 MG Tablet PO (22:55)
[2018-04-28] MEDS: Gabapentin 300 MG Capsule PO (22:55)
[2018-04-28] MEDS: Temazepam 15 MG Capsule PO (23:00)
[2018-04-28 23:21] LABS: Bedside Glucose 257 mg/dL (70-110)
[2018-04-29] MEDS: Gabapentin 300 MG Capsule PO (06:10)
[2018-04-29] MEDS: Levothyroxine 25 MCG TABLET PO (06:10)
[2018-04-29 06:18] VITALS: PULSE 78; RESP 16; TEMP 36.7; O2SAT 97
[2018-04-29 06:29] LABS: Absolute Lymphocyte Count 1.66 X10^3/ul (0.83-4.51); Absolute Neutrophil Count 5.9 X10^3/uL (2.0-7.7); Basophil# 0.05 X10^3/uL; Basophil% 0.5 % (0-1); Eosinophils% 12.7 % (0-5); Hemoglobin 9.4 g/dl (13.0-16.5); Lymphocyte # 1.66 X10^3/ul (4.0); Lymphocyte % 17.6 % (19-41); Mean Corp Hgb Conc 31.3 g/gl (32-36); Mean Corpuscular Hgb 27.6 pg (27.0-32.0); Mean Platelet Vol. 9.2 fl (6.2-12.0); Monocyte# 0.56 X10^3/uL; Monocyte% 5.9 % (0-10); Neutrophil # 5.85 X10^3/uL (2.7-7.7); Neutrophil % 62.1 % (47-70); POSITIVE COUNT NO; POSITIVE DIFFERENTIAL NO; POSITIVE MORPHOLOGY NO; Platelet Count 266 K/mm3 (150-450); RBC Distribution Width CV 16.2 % (11.6-14.6); Red Blood Count 3.41 M/mm3 (4.6-6.2); White Blood Count 9.4 K/mm3 (4.4-11.0)
[2018-04-29 06:30] LABS: Bedside Glucose 145 mg/dL (70-110)
[2018-04-29 06:43] LABS: Anion Gap 8 (5-15); BUN 46 mg/dL (7-18); BUN/Creat Ratio 35.4 RATIO (10-20); Calcium,Total 8.4 mg/dL (8.5-10.1); Chloride 113 mmol/L (98-107); EST Glomerular Filtration Rate 57 mL/min (>60); Est Glom Filt Rate - Afr Amer 69 mL/min (>60); Glucose 144 mg/dL (74-106); Potassium 4.9 mmol/L (3.5-5.1); Sodium Level 140 mmol/L (136-145)
[2018-04-29] MEDS: Glucerna Shake 120 ML LIQUID PO ×3 (08:12→16:44)
[2018-04-29] MEDS: DiphenhydrAMINE 25 MG Capsule PO ×2 (09:34→22:12)
[2018-04-29 09:46] VITALS: BP 157/72; PULSE 75; RESP 18; TEMP 36.4; O2SAT 100
[2018-04-29 09:47] VITALS: PULSE 75
[2018-04-29] MEDS: Metoprolol Tartrate 25 MG Tablet PO ×2 (09:47→22:12)
[2018-04-29] MEDS: Multivitamins,Ther W-Minerals Tablet 1 TABLET PO (09:47)
[2018-04-29] MEDS: Ascorbic Acid 500 MG Tablet 1000 MG PO (09:48)
[2018-04-29] MEDS: Pantoprazole Sodium 40 MG Tablet PO (09:48)
[2018-04-29] MEDS: Meloxicam 15 MG Tablet PO (09:48)
[2018-04-29] MEDS: Linezolid 600 MG Tablet PO ×2 (09:49→22:12)
[2018-04-29] MEDS: Heparin Injection (Vial) 5,000 UNIT/ML VIAL 5000 UNIT SC ×2 (09:49→22:15)
[2018-04-29] MEDS: Triamcinolone 0.5% Cream 1 APPLIC TOPICAL ×2 (10:03→22:15)
[2018-04-29] MEDS: Hydrocortisone 2.5% Crm 1 APPLIC TOPICAL ×2 (10:04→22:01)
--- NOTE | 2018-04-29 10:58 | CASEMGMT ---
RN CHERYL NOTE: VM message received from Saumya Reina @ [employer] asking for return call. Call placed to Saumya. Saumya states she has received the referral for LTAC and has discussed pt's case with her computer security manager. Saumya states she was informed by [facility] that HBO treatments were stopped, so therefore, they are making the recommendations for pt to go to a SNF instead of an LTAC. Clarified with Saumya that Dr Lutz/surgeon, would like HBO treatments to be continued but that he was agreeable to them being on hold until LTAC could get billing issues resolved. Saumya states she has spoken with 3 different SNF's and so far 2 of them have stated they can provide the care pt needs. Saumya states she will need order/documentation from Dr Lutz for the HBO tx's in order for pt to be approved to go to an LTAC. She states that HBO is the deciding factor on if pt would be approved for LTAC or not. Call placed to [facility]. K[facility]i clarified to this RN CHERYL that they are not contracted to provided HBO so therefore they cannot provide these services. Kamini made aware that Saumya from [employer] states that HBO is the deciding factor for pt to approved for an LTAC. Kamini stated she would place call to Luz to discuss this with her. Return call received from Kamini. She states Luz is going to talk with Saumya @ [facility] to discuss pt's case d/t pt's extensive wounds pt has and the care needed. Dr Lutz paged. Awaiting call back. Maryanne PEREIRA RN CM
--- NOTE | 2018-04-29 12:35 | CASEMGMT ---
YOVANY LUNA NOTE: Received call from Dr Lutz. He was made aware [facility] unable to provide HBO services. He was also made aware that insurance approval for LTAC is dependent upon if pt will be needing HBO tx's. He states is still awatiing pathology results to determine if HBO tx is needed. Dr Lutz states that if pathology comes back negative for osteo, then pt would not need HBO tx. Dr Lutz states would be willing to do a [id number] for HBO if it would be denied, but is not willing to do [id number] for LTAC at this time, stating a SNF level of care may be appropriate. Call placed to Kamini @ [facility]. She was also made aware Dr Lutz is not willing to do a [id number] at this time for LTAC, that pathology results are still pending, and that HBO tx's are dependent upon the results. She states insurance has not given official denial yet. She is awaiting call back. To room to talk with pt. He was made aware that Dr Lutz awaiting pathology results to determine if HBO tx's are needed. Pt made aware if HBO is needed/recommended that [facility] is not able to provide this service. Pt states does not have a preference for another LTAC. Pt also made aware that if HBO is not recommended, that he may not be approved to go to an LTAC and may need to go to a SNF. Pt states is agreeable with this as well and states would still be agreeable to going to [facility]. He states he does not want to go to [facility]. Call placed to [facility]. She states they do have HBO chambers and are able to provide this service. She also states they can take [facility]. Maryanne PEREIRA RN CM
[2018-04-29] MEDS: Insulin Lispro 100 UNIT/ML INSULN.PEN SC ×3 (13:08→22:14)
[2018-04-29 13:25] LABS: Bedside Glucose 204 mg/dL (70-110)
--- NOTE | 2018-04-29 14:30 | NURSING ---
Urostomy appliance had been leaking. changed both the urostomy and colostomy appliances. peristomal skin was intact. cleansed with warm water and pat dry. applied a convex 1 piece [place] urostomy appliance and applied a 2 piece flat [place] colostomy appliance. pt tolerated well. still awaiting precert for LTAC or SNF.
--- NOTE | 2018-04-29 14:52 | NURSING ---
wound photo: right hip
--- NOTE | 2018-04-29 14:52 | NURSING ---
wound photo: left lateral lower leg
[2018-04-29 15:31] VITALS: BP 162/72; PULSE 73; RESP 18; TEMP 36.4; O2SAT 100
--- NOTE | 2018-04-29 16:17 | CASEMGMT ---
RN CHERYL NOTE: Call received from [employer]amini [employer] who asked for this RN CHERYL to contact Saumya Lilojude @ [facility] to clarify plan for HBO. Call placed to Saumya and left her a VM message clarifying that there are no current orders for HBO and that surgeon is awaiting pathology results to determine tx plan. Message also stated that d/t [facility] being unable to provide HBO for pt, that orders for HBO will not be sent to [facility]. Maryanne PEREIRA RN CM
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
[2018-04-29 16:51] LABS: Bedside Glucose 202 mg/dL (70-110)
[2018-04-29 21:30] VITALS: BP 150/69; PULSE 92; RESP 16; TEMP 36.9; O2SAT 98
[2018-04-29 22:12] VITALS: PULSE 92
[2018-04-29] MEDS: Temazepam 15 MG Capsule PO (22:13)
[2018-04-29] MEDS: Pravastatin 40 MG Tablet PO (22:13)
[2018-04-29 22:30] LABS: Bedside Glucose 317 mg/dL (70-110)
[2018-04-30] VITALS (8 sets, daily range): BP systolic 99–161; BP diastolic 53–72; PULSE 78–85; RESP 16; TEMP 36.8–37.1; O2SAT 98–100
[2018-04-30] MEDS: Levothyroxine 25 MCG TABLET PO (06:23)
[2018-04-30 06:36] LABS: Bedside Glucose 143 mg/dL (70-110)
[2018-04-30] MEDS: Pantoprazole Sodium 40 MG Tablet PO (08:39)
[2018-04-30] MEDS: Multivitamins,Ther W-Minerals Tablet 1 TABLET PO (08:39)
[2018-04-30] MEDS: Ascorbic Acid 500 MG Tablet 1000 MG PO (08:39)
[2018-04-30] MEDS: Linezolid 600 MG Tablet PO ×2 (08:40→21:44)
[2018-04-30] MEDS: Glucerna Shake 120 ML LIQUID PO ×2 (08:40→16:02)
[2018-04-30] MEDS: Meloxicam 15 MG Tablet PO (08:40)
[2018-04-30] MEDS: Metoprolol Tartrate 25 MG Tablet PO ×2 (08:40→21:44)
--- NOTE | 2018-04-30 09:30 | CASEMGMT ---
Addendum entered by Raven Muller 04/30/18 15:32: Pt also made aware aware of possible discharge tomorrow 05/01. Original Note: Addendum entered by Raven Muller 04/30/18 15:30: Pt made aware insurance has approved LTAC and we are awaiting response from [facility] re: if they can provide HBO services. Original Note: Addendum entered by Raven Muller 04/30/18 15:26: Call placed Kamini @ [facility]. She states insurance has approved LTAC and they are still awaiting on agreement for one-time contract for HBO. She was made aware that Rodrick will be RN CM for pt tomorrow morning until 1100 and then this RN CM will be for the remainder of Friday. She has Rodrick's #. Original Note: Addendum entered by Raven Muller 04/30/18 11:34: Orders for HBO written by Dr Lutz. Faxed to [facility]. Dr Slater made aware pt may be able to go to [facility] today or tomorrow. Original Note: Addendum entered by Raven Muller 04/30/18 11:14: Call received from Kamini [facility]. She states [employer] has approved for them to start working on agreement for one-time contract for HBO. Original Note: Addendum entered by Raven Muller 04/30/18 11:12: Call placed to Saumya Reina @ [facility]. She was made aware pathology results are back and HBO will be ordered. Awaiting orders from Dr Lutz and will fax to Kamini [facility]. Original Note: Addendum entered by Raven Muller 04/30/18 09:58: Call placed to Dr Lutz. He states is aware of pathology results and will be to unit shortly to write orders for HBO tx's. Original Note: RN CM NOTE: Call placed to [facility]. Kamini made aware pathology results have resulted and show Osteo in rt hip bone and informed HBO orders probable. Kamini states her DEWER is going to contact [employer] today to see if they can get agreement for one-tome contract with [facility] to do HBO. She states will return call to this RN CM once they receive an answer. She states if this can be arranged, pt will most likely be able to discharge to them either today or tomorrow. Faxed updated clinicals along with pathology result to [facility] @ [facility] @ [phone]. Confirmation received that fax went through successfully. Maryanne BSN RN CM
--- NOTE | 2018-04-30 10:15 | PCM.PN.ID ---
Patient Problems: Active and Suspected Problems (Last Reviewed 09/24/17 @ 22:20 by Sascha Hadley MD) Infected pressure ulcer (Acute) Subjective: Feeling ok, no fever, no n/v. - Physical Exam General: Alert, Cooperative, No apparent distress Lungs: Clear to auscultation, Normal air movement Cardiovascular: Regular rate, Regular Rhythm Abdomen: Soft, Non Tender, Non-Distended Skin: No rashes, Ulcer/ Wound - reviewed photo Vital Signs Temp Pulse Resp BP Pulse Ox 98.5 F 79 16 139/67 H 100 04/30/18 08:25 04/30/18 08:40 04/30/18 08:25 04/30/18 08:25 04/30/18 09:34 Oxygen Delivery Method Room Air Weight: 68.5 kg Body Mass Index (BMI) 21.6 Finger Stick Blood Glucose 160 Intake and Output for Last 24 Hours 04/28/18 04/29/18 04/30/18 23:59 23:59 23:59 Intake Total 2629 / 2629 957 / 957 1076 / 1076 Output Total 2620 / 2620 2150 / 2150 650 / 650 Balance -1193 / -1193 426 / 426 Microbiology Past 72 Hours 04/22/18 Unknown Gram Stain - Final Biopsy - Tissue Wound Culture - Final Meth. resistant Staph. aureus Vancomycin Resist. E. faecium Anaerobic Culture - Final Anaerobic cocci 04/21/18 16:15 Gram Stain - Final Wound - Hip Wound Culture - Final Meth. resistant Staph. aureus Enterococcus faecalis Klebsiella pneumoniae sp pneum Anaerobic Culture - Final Prevotella melaninogenica Veillonella spp 04/22/18 Unknown Gram Stain - Final Biopsy - Bone Wound Culture - Final Meth. resistant Staph. aureus Enterococcus faecalis Anaerobic Culture - Final Clostridium group 04/22/18 Unknown Gram Stain - Final Biopsy - Bone Wound Culture - Final Meth. resistant Staph. aureus Vancomycin Resist. E. faecium Anaerobic Culture - Preliminary Checking for anaerobes, further studies to follow. 04/22/18 Unknown Gram Stain - Final Biopsy - Ischium Wound Culture - Final Meth. resistant Staph. aureus Anaerobic Culture - Final No anaerobic bacteria isolated. POC Glucose 04/30/18 04/29/18 04/29/18 06:23 22:07 16:35 POC Glucose 143 H 317 H 202 H 04/29/18 11:18 POC Glucose 204 H Medical Necessity - Tobacco Use Smoking Status: Never smoker Tobacco Use: Non-smoker Route of nutrition/ use of supplements: [] Nutritional Intake: [] IV Site: [] Lozano Catheter: [] - Assessment/Plan Antibiotics: [] Assessment/Plan: [] Active and Suspected Problems (Last Reviewed 09/24/17 @ 22:20 by Sascha Hadley MD) Abscess of right hip (Acute) Methicillin resistant Staphylococcus aureus infection (Acute) Family history of skin cancer (Acute) Infected pressure ulcer (Acute) R hip osteo with associated abscess - on vanc/zosyn. OR 04/[address] Lutz. 03/16/18 wound cx with mrsa, prevotella, anaerobes. Surg cx with MRSA, enterococcus, VRE, and klebsiella. On linezolid and unasyn for 6 week course, stop date 06/02/18, weekly bmp, cbc, esr. I can follow him at [facility] in [place]. If platelets start to drop, will need to change linezolid to dapto. Will follow. If he does not go to [facility], I can see him in 2-3 weeks at [facility].
[2018-04-30] MEDS: DiphenhydrAMINE 25 MG Capsule PO ×2 (10:37→19:33)
[2018-04-30] MEDS: Triamcinolone 0.5% Cream 1 APPLIC TOPICAL (10:40)
[2018-04-30] MEDS: Hydrocortisone 2.5% Crm 1 APPLIC TOPICAL (10:41)
[2018-04-30] MEDS: Heparin Injection (Vial) 5,000 UNIT/ML VIAL 5000 UNIT SC ×2 (10:44→21:45)
[2018-04-30 10:56] LABS: Bedside Glucose 212 mg/dL (70-110)
--- NOTE | 2018-04-30 11:17 | RAD_ITS ---
STUDY: X-RAY CHEST REASON FOR EXAM: Male, 72 years old. Chest pain and cough TECHNIQUE: Single AP portable view of the chest. COMPARISON: 09/24/2017 FINDINGS: There are interstitial fibrotic changes of the lungs. There is no demonstrated pleural abnormality. Normal size heart. Normal mediastinum and galdino. Normal visualized pulmonary arteries. Normal visualized aortic arch and descending thoracic aorta. There are diffuse degenerative changes of the visualized thoracic spine. There is degenerative osteoarthritis of the bilateral shoulders. There is no demonstrated abnormality of the visualized soft tissue structures of the upper abdomen. RAD/Chest 1 View (Portable) IMPRESSION: Degenerative changes, as described above. No demonstrated acute cardiopulmonary process. Electronically Signed: Jose Quiles MD at 15:26 EDT , Service support ,
[2018-04-30] MEDS: Insulin Lispro 100 UNIT/ML INSULN.PEN SC ×3 (12:05→21:45)
--- NOTE | 2018-04-30 13:12 | PCM.PN.SRG ---
Patient Problems: Active and Suspected Problems (Last Reviewed 09/24/17 @ 22:20 by Sascha Hadley MD) Infected pressure ulcer (Acute) Subjective: Postop #7 Patient is resting comfortably. VAC in place. - Physical Exam General: Alert, Oriented x3 HEENT: PERRLA, EOMI Oral: Moist Mucosa Neck: Supple Abdomen: Soft, Non-Distended Skin: Ulcer/ Wound - right hip disarticulation/ischial wound is stable. VAC in place. Minimal drainage in the canister. Left lower extremity ulcers are stable and dressed with Aquacel Silver. Neurological: Cranial nerves II-XII grossly intact Psych/Mental Status: Normal Affect, Appropriate Vital Signs Temp Pulse Resp BP Pulse Ox 98.5 F 79 16 139/67 H 100 04/30/18 08:25 04/30/18 08:40 04/30/18 08:25 04/30/18 08:25 04/30/18 08:30 Oxygen Delivery Method Room Air Weight: 151 lb 0.266 oz Body Mass Index (BMI) 21.6 Finger Stick Blood Glucose 160 Intake and Output for Last 24 Hours 04/28/18 04/29/18 04/30/18 23:59 23:59 23:59 Intake Total 2629 / 2629 957 / 957 1641 / 1641 Output Total 2620 / 2620 2150 / 2150 1100 / 1100 Balance -1193 / -1193 541 / 541 Microbiology Past 72 Hours 04/22/18 Unknown Gram Stain - Final Biopsy - Tissue Wound Culture - Final Meth. resistant Staph. aureus Vancomycin Resist. E. faecium Anaerobic Culture - Final Anaerobic cocci 04/21/18 16:15 Gram Stain - Final Wound - Hip Wound Culture - Final Meth. resistant Staph. aureus Enterococcus faecalis Klebsiella pneumoniae sp pneum Anaerobic Culture - Final Prevotella melaninogenica Veillonella spp 04/22/18 Unknown Gram Stain - Final Biopsy - Bone Wound Culture - Final Meth. resistant Staph. aureus Enterococcus faecalis Anaerobic Culture - Final Clostridium group 04/22/18 Unknown Gram Stain - Final Biopsy - Bone Wound Culture - Final Meth. resistant Staph. aureus Vancomycin Resist. E. faecium Anaerobic Culture - Preliminary Checking for anaerobes, further studies to follow. Pathology - Right hip acetabulum - positive for osteomyelitis. Right ischium - negative for osteomyelitis. POC Glucose 04/30/18 04/30/18 04/29/18 10:47 06:23 22:07 POC Glucose 212 H 143 H 317 H 04/29/18 04/29/18 16:35 11:18 POC Glucose 202 H 204 H Medical Necessity - Tobacco Use Smoking Status: Never smoker Tobacco Use: Non-smoker Assessment/Plan All Active Problems (Last Reviewed 09/24/17 @ 22:20 by Sascha Hadley MD) Abscess of right hip (Acute) Methicillin resistant Staphylococcus aureus infection (Acute) Family history of skin cancer (Acute) Blister of left leg without infection (Acute) Hypotension (Acute) Probable sepsis (Acute) Infected pressure ulcer (Acute) Abdominal pain (Acute) Acute kidney injury (Acute) Septic shock (Acute) Pressure ulcer of sacral region, stage 3 (Acute) Scrotal ulcer (Acute) Complicated UTI (urinary tract infection) (Acute) Constipation (Acute) Pressure ulcer of perianal region (Resolved) Pressure ulcer of buttock (Resolved) UTI (urinary tract infection) (Acute) 1. MRSA abscess right hip. 2. 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 5. MRSA. 6. Chronic refractory osteomyelitis. 7. Diabetes mellitus. 8. Peripheral vascular disease. 9. Paraplegia. 10. s/p incision and drainage right hip disarticulation MRSA abscess and excision infected MRSA right hip disarticulation pressure sore, Stage IV, with partial ostectomy for osteomyelitis and excision infected MRSA right ischial pressure sore, Stage IV, with partial ostectomy for osteomyelitis. 11. Anemia of chronic disease, acute on chronic, stable. 12. VRE. Wound is stable. VAC in place. Minimal drainage in the canister. To be changed three times per week at 150 mmHg continuous suction. Continue Zyvox and Unasyn for MRSA, VRE, Enterococcus faecalis, Klebsiella pneumoniae, Anaerobic cocci, Clostridium group, Prevotella melaninogenica, and Veillonella spp. Pathology is positive for osteomyelitis in the right hip acetabulum. The right ischium is negative for osteomyelitis. Prealbumin was 12.2. Encourage nutritional supplementation with protein to help the healing process. Hgb is stable at 9.4. Received PRBC perioperatively. Had operative blood loss of 450 ml. Will start Iron supplementation. LTAC evaluation in process. Anticipate today or tomorrow for discharge. Making final arrangements for HBO at the LTAC. He would benefit from HBO treatments because of his chronic refractory osteomyelitis. His last CXR was in 09/27. Will obtain one today for the HBO. Followup at the [facility] after discharge from the LTAC.
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
[2018-04-30] MEDS: Iron Polysaccharide Complex 150 MG CAPSULE PO (16:02)
[2018-04-30 16:10] LABS: Bedside Glucose 217 mg/dL (70-110)
[2018-04-30] MEDS: Pravastatin 40 MG Tablet PO (21:46)
[2018-04-30 21:55] LABS: Bedside Glucose 166 mg/dL (70-110)
[2018-04-30] MEDS: MELATONIN 3 MG TABLET PO (22:22)
[2018-05-01 06:01] VITALS: BP 116/59; PULSE 79; RESP 16; TEMP 36.6; O2SAT 98
[2018-05-01] MEDS: Levothyroxine 25 MCG TABLET PO (06:05)
[2018-05-01] MEDS: DiphenhydrAMINE 25 MG Capsule PO ×2 (06:11→13:10)
[2018-05-01 07:16] LABS: Bedside Glucose 101 mg/dL (70-110)
[2018-05-01 07:36] VITALS: PULSE 82
[2018-05-01] MEDS: Pantoprazole Sodium 40 MG Tablet PO (08:00)
[2018-05-01 08:01] VITALS: PULSE 82
[2018-05-01] MEDS: Metoprolol Tartrate 25 MG Tablet PO (08:01)
[2018-05-01] MEDS: Multivitamins,Ther W-Minerals Tablet 1 TABLET PO (08:01)
[2018-05-01] MEDS: Ascorbic Acid 500 MG Tablet 1000 MG PO (08:01)
[2018-05-01] MEDS: Meloxicam 15 MG Tablet PO (08:01)
[2018-05-01] MEDS: Glucerna Shake 120 ML LIQUID PO ×2 (08:02→14:19)
[2018-05-01] MEDS: Hydrocortisone 2.5% Crm 1 APPLIC TOPICAL (08:03)
--- NOTE | 2018-05-01 09:03 | PCM.PN.HOSP ---
Patient Problems: Active and Suspected Problems (Last Reviewed 09/24/17 @ 22:20 by Sascha Hadley MD) Infected pressure ulcer (Acute) Vitals/I&O's: Vital Signs Temp Pulse Resp BP Pulse Ox 98 F 82 16 116/59 L 98 05/01/18 06:01 05/01/18 08:01 05/01/18 06:01 05/01/18 06:01 05/01/18 06:01 Oxygen Delivery Method Room Air Weight: 68.5 kg Body Mass Index (BMI) 21.6 Finger Stick Blood Glucose 160 Intake and Output for Last 24 Hours 04/29/18 04/30/18 05/01/18 23:59 23:59 23:59 Intake Total 957 / 957 2232 / 2232 567 / 567 Output Total 2150 / 2150 1500 / 1500 1400 / 1400 Balance -1193 / -1193 732 / 732 -833 / -833 Microbiology Past 72 Hours 04/22/18 Unknown Biopsy - Tissue Gram Stain - Final 04/22/18 Unknown Biopsy - Tissue Wound Culture - Final Meth. resistant Staph. aureus Vancomycin Resist. E. faecium 04/22/18 Unknown Biopsy - Tissue Anaerobic Culture - Final Anaerobic cocci 04/21/18 16:15 Wound - Hip Gram Stain - Final 04/21/18 16:15 Wound - Hip Wound Culture - Final Meth. resistant Staph. aureus Enterococcus faecalis Klebsiella pneumoniae sp pneum 04/21/18 16:15 Wound - Hip Anaerobic Culture - Final Prevotella melaninogenica Veillonella spp 04/22/18 Unknown Biopsy - Bone Gram Stain - Final 04/22/18 Unknown Biopsy - Bone Wound Culture - Final Meth. resistant Staph. aureus Enterococcus faecalis 04/22/18 Unknown Biopsy - Bone Anaerobic Culture - Final Clostridium group Laboratory Results 04/30/18 10:47: POC Glucose 212 H 04/30/18 15:59: POC Glucose 217 H 04/30/18 21:33: POC Glucose 166 H 05/01/18 07:07: POC Glucose 101 Current Medications Acetaminophen (Tylenol) 650 mg PO Q6H PRN PRN PRN Reason: Non-cardiac pain (mod-severe) Last Admin: 04/22/18 18:45 Dose: 650 mg Hydrocodone Bitart/Acetaminophen ([place] 5mg-325mg) 1 - 2 tablet PO Q6H PRN PRN PRN Reason: Moderate-severe pain Al Hydroxide/Mg Hydroxide (Mylanta Ii) 30 ml PO Q6H PRN PRN PRN Reason: Gastric burning Last Admin: 04/26/18 19:26 Dose: 30 ml Ascorbic Acid (Vitamin C) 1,000 mg PO DAILY [facility] Last Admin: 05/01/18 08:01 Dose: 1,000 mg Dextrose (D50w Syringe) 0 gm IV X1 PRN; Protocol PRN Reason: Hypoglycemia Diphenhydramine HCl (Benadryl) 25 mg PO DAILY PRN PRN Reason: ITCHING Last Admin: 05/01/18 06:11 Dose: 25 mg Gabapentin (Neurontin) 300 mg PO QHS [facility] Glucagon () 1 mg IM .X1 PRN PRN Reason: Hypoglycemia Heparin Sodium (Beef Lung) () 50 units IV UD PRN PRN Reason: HEPARIN FLUSH Heparin Sodium (Porcine) (Heparin Na) 5,000 unit SC Q12 [facility] Last Admin: 04/30/18 21:45 Dose: 5,000 unit Hydralazine HCl (Apresoline Iv) 10 mg IV Q4H PRN PRN PRN Reason: SBP > 160 Last Admin: 04/28/18 20:02 Dose: 10 mg Hydrocortisone (Hytone) 1 applic TOPICAL BID [facility]; Protocol Last Admin: 05/01/18 08:03 Dose: 1 applicatio Ampicillin Sodium/Sulbactam (Sodium 3 gm/ Sodium Chloride) 112 mls @ 150 mls/hr IV Q8 [facility] Last Admin: 05/01/18 06:06 Dose: 150 mls/hr Insulin Glargine (Lantus (Bkc)) 17 units SC 1100,2200 [facility] Last Admin: 04/30/18 21:45 Dose: 17 units Insulin Human Lispro (Humalog Kwikpen (Bkc)) 0 unit SC ACHS [facility]; Protocol Last Admin: 05/01/18 07:08 Dose: Not Given Levothyroxine Sodium (Synthroid) 25 mcg PO DAILY@0600 [facility] Last Admin: 05/01/18 06:05 Dose: 25 mcg Linezolid (Zyvox) 600 mg PO BID [facility] Last Admin: 04/30/18 21:44 Dose: 600 mg Magnesium Hydroxide (Milk Of Magnesia) 30 ml PO DAILY PRN PRN PRN Reason: Constipation Melatonin (Melatonin) 3 mg PO QHS [facility] Last Admin: 04/30/18 22:22 Dose: 3 mg Meloxicam (Mobic) 15 mg PO DAILY [facility] Last Admin: 05/01/18 08:01 Dose: 15 mg Metoprolol Tartrate (Lopressor (Beta Roxy)) 25 mg PO BID [facility] Last Admin: 05/01/18 08:01 Dose: 25 mg Multivitamins/Minerals (Multivitamin With Minerals) [facility] Last Admin: 05/01/18 08:01 Dose: 1 tablet Nutritional Formula (Lactose Free) (Glucerna Shake) 120 ml PO TIDCM [facility] Last Admin: 05/01/18 08:02 Dose: 120 ml Ondansetron HCl (Zofran) 4 mg IV Q8H PRN PRN PRN Reason: NAUSEA/VOMITING Pantoprazole Sodium (Protonix) 40 mg PO DAILY [facility] Last Admin: 05/01/18 08:00 Dose: 40 mg Polysaccharide Iron Complex (Ferrex 150) [facility] Last Admin: 04/30/18 16:02 Dose: 150 mg Pravastatin Sodium (Pravachol) 40 mg PO QHS [facility] Last Admin: 04/30/18 21:46 Dose: 40 mg Sodium Chloride () 5 - 15 ml IV UD PRN PRN Reason: SALINE FLUSH Last Admin: 04/25/18 21:17 Dose: 10 ml Sodium Chloride () 10 - 20 ml IV UD PRN PRN Reason: PICC FLUSH Medical Necessity - Tobacco Use Smoking Status: Never smoker Tobacco Use: Non-smoker Assessment/Plan All Active Problems (Last Reviewed 09/24/17 @ 22:20 by Sascha Hadley MD) Abscess of right hip (Acute) Methicillin resistant Staphylococcus aureus infection (Acute) Family history of skin cancer (Acute) Blister of left leg without infection (Acute) Hypotension (Acute) Probable sepsis (Acute) Infected pressure ulcer (Acute) Abdominal pain (Acute) Acute kidney injury (Acute) Septic shock (Acute) Pressure ulcer of sacral region, stage 3 (Acute) Scrotal ulcer (Acute) Complicated UTI (urinary tract infection) (Acute) Constipation (Acute) Pressure ulcer of perianal region (Resolved) Pressure ulcer of buttock (Resolved) UTI (urinary tract infection) (Acute)
[2018-05-01] MEDS: Iron Polysaccharide Complex 150 MG CAPSULE PO (09:42)
[2018-05-01] MEDS: Heparin Injection (Vial) 5,000 UNIT/ML VIAL 5000 UNIT SC (09:43)
--- NOTE | 2018-05-01 10:20 | CASEMGMT ---
Addendum entered by Rodrick Duran 05/01/18 11:01: YOVANY LUNA- call to Janet Schneider to update that ambulance transport will pick patient up @ [facility] @ 3:30 pm. Original Note: YOVANY LUNA Note: Call to Janet @ [facility]. Approval received for discharge to [facility] today. Contract between [facility] and [employer] was completed, per janet Joseph. Pt can transfer today. -Text page to Dr. Condon to notify and request transfer orders and med list be completed. -Update to YOVANY Paez. Nurse to Nurse report # given. -elementary secretary updated. Packet being made and disc is included. Earliest transport set up is @ 3:30 pm today. Radhames PEREIRA RN ACM
--- NOTE | 2018-05-01 10:33 | PCM.TXEXTCAR ---
- Diet 04/22/18 18:20 Diet: Carbohydrate Controlled Is pt able to select menu?: Yes Diet Comments: NPO except sip water w/ medications - Routine Orders/Code Status Routine Lab Work: CBC - within 3 days, BMP - within 3 days - Wound(s) RIGHT HIP Wound Type: Pressure Injury Dressing Change: KCI wound VAC RIGHT HIP (BOTTOM) Wound Type: Surgical Incision Dressing Change: Wet to Dry Dressing ANTERIOR LEFT ANKLE Wound Type: Pressure Injury POSTERIOR LEFT ANKLE Wound Type: Pressure Injury POSTERIOR TIBIAL Wound Type: Pressure Injury POSTERIOR TIBIAL SCAB Wound Type: SCABBED OVER PRESSURE INJURY CRAFT Wound Type: Abrasion POSTERIOR LEFT KNEE Wound Type: Pressure Injury LT HIP Wound Type: Pressure Injury Dressing Change: Adaptic SCROTUM Wound Type: EXCORIATION left lateral lower leg Wound Type: Pressure Injury Dressing Change: AntiMicrobial (Aquacel AG, etc) left lateral foot Wound Type: Pressure Injury Dressing Change: AntiMicrobial (Aquacel AG, etc) bottom scrotum Wound Type: Abrasion - Therapies Physical Therapy: Eval and Treat Occupational Therapy: Eval and Treat - Allergies/Procedures Done in Hospital Allergies/Adverse Reactions: Allergies codeine Adverse Reaction (Verified 04/21/18 15:28) heavy sweats prednisone Adverse Reaction (Verified 04/21/18 15:28) headache, heavy sweats Procedures: None - Type of Care/Length of Stay Estimated LOS: Convalescent Care Less Than 30 days Type of Care Needed: Skilled Rehab Potential: Fair Prognosis: Fair - Additional Orders/Day of Discharge Additional Orders: Patient has a wound VAC to the right hip, continue on continuous application. He would need hyperbaric oxygen. Will defer to recommendations from the hyperbaric team Day of Discharge: 05/01/18 - Dietary and Speech Recommendations Dietitian Recommendations/Changes: Recommend continue carb controlled diet as indicated. Will decrease glucerna shake 120 ml TID instead of 4 times per day d/t elevated glucose and eating well--on medpass. Recommend add Alan 1 pkt PO BID for wound healing -- order from pharmacy. - Follow Up Care Primary Care Physician: Angelina Caceres DO [Primary Care Provider] - Please follow up with your Primary Care Physician in: within 1-2 weeks Please Follow Up With: Morgan Lutz MD When: Follow-up after discharge from LTAC in [facility]
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
--- NOTE | 2018-05-01 10:54 | NURSING ---
Pt has been accepted to the LTAC. wound VAC removed and a wet to dry dressing was applied. wound VAC will be reapplied at the LTAC today. there was a moderate amount of bleeding noted. this was easily controlled after direct pressure was applied. cleansed wound and periwound with NS. pat dry. filled wound with NS moistened kerlix followed by fluffed gauze and ABD pads. secured dressings with Medipore tape. pt tolerated well.
[2018-05-01] MEDS: Insulin Lispro 100 UNIT/ML INSULN.PEN SC (11:09)
[2018-05-01] MEDS: Linezolid 600 MG Tablet PO (11:09)
--- NOTE | 2018-05-01 12:54 | CASEMGMT ---
Addendum entered by Raven Muller 05/01/18 12:57: Confirmation received that fax went through successfully. Original Note: RN CHERYL NOTE: Faxed Medication list, transfer to extended care documentation, and discharge summary to [facility] @ [phone]. Maryanne IYERN YOVANY CM
--- NOTE | 2018-05-01 13:05 | CASEMGMT ---
YOVANY LUNA NOTE: Call placed to Cindy @ [facility]. She was made aware pt tx'ing to LTAC today. Maryanne PEREIRA RN CM
[2018-05-01 13:19] VITALS: BP 158/68; PULSE 77; RESP 13; TEMP 36.9; O2SAT 98
--- NOTE | 2018-05-01 14:14 | PCM.PN.ID ---
Patient Problems: Active and Suspected Problems (Last Reviewed 09/24/17 @ 22:20 by Sascha Hadley MD) Infected pressure ulcer (Acute) Subjective: Some increased rash and itching of hands this AM after dose of unasyn. No fever. Sx improved with benadryl. - Physical Exam General: Alert, Cooperative, No apparent distress Lungs: Clear to auscultation, Normal air movement Cardiovascular: Regular rate, Regular Rhythm Abdomen: Soft, Non Tender, Non-Distended Skin: Ulcer/ Wound - reviewed photo, - - mild redness and pruritis on hands Vital Signs Temp Pulse Resp BP Pulse Ox 98.5 F 77 13 158/68 H 98 05/01/18 13:19 05/01/18 13:19 05/01/18 13:19 05/01/18 13:19 05/01/18 13:19 Oxygen Delivery Method Room Air Weight: 68.5 kg Body Mass Index (BMI) 21.6 Finger Stick Blood Glucose 160 Intake and Output for Last 24 Hours 04/29/18 04/30/18 05/01/18 23:59 23:59 23:59 Intake Total 957 / 957 2232 / 2232 1164 / 1164 Output Total 2150 / 2150 1500 / 1500 1575 / 1575 Balance -1193 / -1193 732 / 732 -411 / -411 Microbiology Past 72 Hours 04/22/18 Unknown Gram Stain - Final Biopsy - Tissue Wound Culture - Final Meth. resistant Staph. aureus Vancomycin Resist. E. faecium Anaerobic Culture - Final Anaerobic cocci 04/21/18 16:15 Gram Stain - Final Wound - Hip Wound Culture - Final Meth. resistant Staph. aureus Enterococcus faecalis Klebsiella pneumoniae sp pneum Anaerobic Culture - Final Prevotella melaninogenica Veillonella spp POC Glucose 05/01/18 04/30/18 04/30/18 07:07 21:33 15:59 POC Glucose 101 166 H 217 H Medical Necessity - Tobacco Use Smoking Status: Never smoker Tobacco Use: Non-smoker Route of nutrition/ use of supplements: [] Nutritional Intake: [] IV Site: [] Lozano Catheter: [] - Assessment/Plan Antibiotics: [] Assessment/Plan: [] Active and Suspected Problems (Last Reviewed 09/24/17 @ 22:20 by Sascha Hadley MD) Abscess of right hip (Acute) Methicillin resistant Staphylococcus aureus infection (Acute) Family history of skin cancer (Acute) Infected pressure ulcer (Acute) R hip osteo with associated abscess - on vanc/zosyn. OR 04/[address] Lutz. 03/16/18 wound cx with mrsa, prevotella, anaerobes. Surg cx with MRSA, enterococcus, VRE, and klebsiella. On linezolid and unasyn for 6 week course, stop date 06/02/18, weekly bmp, cbc, esr. I can follow him at [facility] in [place]. If platelets start to drop, will need to change linezolid to dapto. Some rash with unasyn, if cannot be controlled with benadryl, will need to change unasyn to ceftriaxone 2gm iv daily and flagyl 500mg po tid. Will follow
--- NOTE | 2018-05-01 14:54 | NURSING ---
Report called to Bela PEDROZA receiving nurse.
[2018-05-01] MEDS: 0.9% NaCl Peripheral Flush Adult/Peds IV (15:17)
[2018-05-01 15:30] LABS: Bedside Glucose 243 mg/dL (70-110)
--- NOTE | 2018-05-01 15:46 | NURSING ---
LIVIA CONTACTED ABOUT BED REMOVAL- CONFIRMATION #[id number]
== END 2018-05-01 15:50 | DRG 628 ==
LOC: ED 16:07 → MS2 19:38
PROVIDERS: Anesthesiology; Internal Medicine; Surgery; Admitting Provider Family Medicine; Emergency Provider Emergency Medicine; Family Provider Family Medicine; PCP Family Medicine; Referring Provider Family Medicine; Visit Provider Internal Medicine
PROC: 0QB40ZX Excision of Right Acetabulum, Open Approach, Diagnostic (ICD-10-PCS; principal; 2018-04-22 13:45)
DX: E11.69 Type 2 diabetes mellitus with other specified complication (principal); L89.214 Pressure ulcer of right hip, stage 4; G82.20 Paraplegia, unspecified; M86.8X8 Other osteomyelitis, other site; L02.415 Cutaneous abscess of right lower limb; E78.5 Hyperlipidemia, unspecified; E03.9 Hypothyroidism, unspecified; B95.62 Methicillin resistant Staphylococcus aureus infection as the cause of diseases classified elsewhere; B95.2 Enterococcus as the cause of diseases classified elsewhere; Z16.21 Resistance to vancomycin; L89.222 Pressure ulcer of left hip, stage 2; L89.892 Pressure ulcer of other site, stage 2; L89.890 Pressure ulcer of other site, unstageable; E11.42 Type 2 diabetes mellitus with diabetic polyneuropathy; I12.9 Hypertensive chronic kidney disease with stage 1 through stage 4 chronic kidney disease, or unspecified chronic kidney disease; E11.22 Type 2 diabetes mellitus with diabetic chronic kidney disease; D63.8 Anemia in other chronic diseases classified elsewhere; N18.3 Chronic kidney disease, stage 3 (moderate); Z23 Encounter for immunization; Z93.3 Colostomy status; Z93.6 Other artificial openings of urinary tract status; Z79.84 Long term (current) use of oral hypoglycemic drugs; Z89.621 Acquired absence of right hip joint; V89.2XXS Person injured in unspecified motor-vehicle accident, traffic, sequela
CPT/HCPCS: 36415; 36569; 71045; 72195; 73501; 80048; 80202; 82962; 83036; 83735; 84134; 84443; 85025; 85610; 85652; 85730; 86140; 86850; 86900; 86920; 86922; 87070; 87075; 87076; 87077; 87102; 87186; 87205; 87206; 87640; 88304; 88305; 88311; 88312; 93005; 97110; 97166; 97530; 97802; 99282; J7030; J7040; J7050; P9016; 90686; A4216; J0295; J2405

== ENCOUNTER 2018-07-07 11:12 | Inpatient (IN) | payer MEDICARE, SELFPAY ==
[2018-05-13 15:35] VITALS: BMI 21.6
[2018-07-07 11:14] VITALS: BP 162/82; PULSE 101; PULSE 99; RESP 16; RESP 17; TEMP 36.8; O2SAT 100; O2SAT 97; BMI 25.5
--- NOTE | 2018-07-07 11:53 | CT_ITS ---
STUDY: CT ABDOMEN AND PELVIS WITHOUT CONTRAST REASON FOR EXAM: Male, 72 years old. Abdominal pain and nausea. RADIATION DOSAGE (If Supplied By Facility): CTDIvol = ( 13.03 ) mGy, DLP = ( 1297.96 ) mGycm TECHNIQUE: Transaxial images were obtained from the dome of the diaphragm to the symphysis pubis without oral contrast, and without intravenous contrast. Sagittal and coronal images were reconstructed. Individualized dose optimization techniques were used for this CT. COMPARISON: Comparison is made with prior study dated August 21, 2017. FINDINGS: Minimal degree of linear atelectasis and/or scarring at the lung bases. The visualized portions of the heart are within normal limits. There is decreased attenuation of the liver consistent with steatosis. There are multiple small gallstones. Normal spleen. Normal pancreas. Normal bilateral adrenal glands. Normal right kidney. There is severe cortical atrophy of the left kidney, consistent with chronic medical renal disease. Mild degree of left hydronephrosis. Stable appearance of the left renal cyst. There is a small hiatal hernia. Marked degree of the fluid distention of the stomach. There are dilated loops of the small intestine in the upper mid abdomen with a non-distended colon consistent with a small bowel obstruction. A colostomy is seen in the left lower mid abdomen. The appendix is visualized and appears normal. There is diffuse atherosclerotic calcification of the abdominal aorta, without a demonstrated aneurysm. Normal inferior vena cava. Normal retroperitoneum. Normal urinary bladder. There is evidence of a soft tissue ulceration overlying the left buttock. Increased markings are seen in the subcutaneous tissues. There is also evidence of a 3.5 cm x 3.6 cm soft tissue induration in the right perineal area. Normal abdominal wall. The right hip joint is not seen. There is evidence of a 3.2 cm x 2.9 cm irregular ossification in the region of the right side of the coccyx. CT/Abdomen/Pelvis without Cont IMPRESSION: Small gallstones. Findings suggestive of proximal small bowel obstruction. Postoperative changes seen in the region of the right hip joint with nonvisualization of the femur and the overlying soft tissue induration and ulceration. Electronically Signed: Hayder Cisneros, at 13:05 EDT , Service support ,
[2018-07-07] MEDS: Ondansetron 4 MG/2 ML Vial IV (12:09)
[2018-07-07] MEDS: Morphine 4 MG/ML Syringe IV (12:10)
[2018-07-07] MEDS: 0.9% Normal Saline 1,000 ML 1000 ML IV (12:12)
[2018-07-07 12:17] VITALS: BP 106/50; PULSE 100; RESP 14; TEMP 37.1; O2SAT 100
[2018-07-07 12:19] LABS: Absolute Lymphocyte Count 1.91 X10^3/ul (0.83-4.51); Absolute Neutrophil Count 12.3 X10^3/uL (2.0-7.7); Basophil# 0.02 X10^3/uL; Basophil% 0.1 % (0-1); Eosinophil# 0.07 X10^3/uL; Eosinophils% 0.5 % (0-5); Hematocrit 35.4 % (40-54); Hemoglobin 11.8 g/dl (13.0-16.5); Lymphocyte # 1.91 X10^3/ul (4.0); Lymphocyte % 12.5 % (19-41); Mean Corp Hgb Conc 33.3 g/gl (32-36); Mean Corpuscular Hgb 30.8 pg (27.0-32.0); Mean Corpuscular Volume 92.4 fL (80-94); Mean Platelet Vol. 8.9 fl (6.2-12.0); Monocyte# 0.87 X10^3/uL; Monocyte% 5.7 % (0-10); Neutrophil # 12.33 X10^3/uL (2.7-7.7); Neutrophil % 80.9 % (47-70); POSITIVE COUNT NO; POSITIVE DIFFERENTIAL NO; POSITIVE MORPHOLOGY NO; Platelet Count 217 K/mm3 (150-450); RBC Distribution Width SD 57.8 fl (35.1-43.9); Red Blood Count 3.83 M/mm3 (4.6-6.2); White Blood Count 15.2 K/mm3 (4.4-11.0)
[2018-07-07 12:31] LABS: ALB/GLOB Ratio 0.7 RATIO (0.9-2.4); AST(SGOT) 28 U/L (15-37); Alanine Aminotransfer ALT/SGPT 36 U/L (16-61); Albumin, Serum 2.9 g/dL (3.2-5.0); Alkaline Phosphatase 112 U/L (45-117); Anion Gap 13 (5-15); BUN 71 mg/dL (7-18); BUN/Creat Ratio 47.3 RATIO (10-20); Calcium,Total 9.4 mg/dL (8.5-10.1); Chloride 109 mmol/L (98-107); EST Glomerular Filtration Rate 49 mL/min (>60); Est Glom Filt Rate - Afr Amer 59 mL/min (>60); Estimated Creatinine Clearance 38.99 ml/min; Globulin 4.4 g/dL (2.2-4.2); Glucose 195 mg/dL (74-106); Lipase 281 U/L (73-393); Protein, Total 7.3 g/dL (6.4-8.2); Sodium Level 142 mmol/L (136-145)
[2018-07-07 12:40] LABS: Lactic Acid 1.8 mmol/L (0.4-2.0)
[2018-07-07 13:00] VITALS: BP 113/53; PULSE 109; RESP 19; TEMP 37.2; O2SAT 100
--- NOTE | 2018-07-07 13:17 | RAD_ITS ---
STUDY: X-RAY - ABDOMEN/PELVIS REASON FOR EXAM: Male, 72 years old. Nasogastric tube placement. TECHNIQUE: Single AP view of the abdomen / pelvis. COMPARISON: None. FINDINGS: Normal visualized lung bases. The tip of the nasogastric tube is in the body of the stomach. Gaseous distention of the stomach. Proximal small bowel dilatation. RAD/Abdomen Single View (Portable) IMPRESSION: The tip of the nasogastric tube is in the body of the stomach. Electronically Signed: Hayder Cisneros, at 14:36 EDT , Service support ,
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
[2018-07-07 14:00] VITALS: BP 115/59; PULSE 94; RESP 12; TEMP 37.1; O2SAT 100
--- NOTE | 2018-07-07 14:15 | ED.RN ---
WOUND SUCTION LEAKING AFTER CT SCAN. PER PHONE CALL TO [facility] NURSE, STERILE WET TO DRY DRESSING APPLIED. PT TOLERATED WELL.
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
[2018-07-07 15:38] VITALS: BMI 25.2
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
[2018-07-07] MEDS: 0.9% Normal Saline 1,000 ML 75 ML IV (17:18)
[2018-07-07] MEDS: 0.9% NaCl Peripheral Flush Adult/Peds IV (17:18)
--- NOTE | 2018-07-07 17:25 | CPS ---
NURSING CARE BEING ADMINISTERED. PT UNAVAILABLE. SMI PLACED IN ROOM
[2018-07-07 17:36] LABS: Bedside Glucose 160 mg/dL (70-110)
[2018-07-07 20:12] VITALS: BP 106/46; PULSE 105; RESP 14; TEMP 37.4; O2SAT 100
[2018-07-07] MEDS: Heparin Injection (Vial) 5,000 UNIT/ML VIAL 5000 UNIT SC (20:20)
[2018-07-07 23:30] VITALS: BP 114/52; PULSE 109
[2018-07-07] MEDS: Metoprolol Tartrate 25 MG Tablet PO (23:30)
[2018-07-07] MEDS: MELATONIN 3 MG TABLET PO (23:31)
[2018-07-08] VITALS: BP 113/88; PULSE 86; RESP 14; TEMP 36.8; O2SAT 100
--- NOTE | 2018-07-08 00:33 | NURSING ---
Dayshift: Kelly contacted Dr. Sinclair via cortex for NG order, given ok for NG suction at Low Intermittent with 30 ml of Sterile H2o q4h, orders entered by this nurse.
[2018-07-08 01:31] LABS: Bedside Glucose 158 mg/dL (70-110)
[2018-07-08 05:34] LABS: Absolute Lymphocyte Count 2.09 X10^3/ul (0.83-4.51); Absolute Neutrophil Count 8.5 X10^3/uL (2.0-7.7); Basophil# 0.02 X10^3/uL; Basophil% 0.2 % (0-1); Eosinophil# 0.18 X10^3/uL; Eosinophils% 1.5 % (0-5); Hematocrit 30.2 % (40-54); Hemoglobin 9.6 g/dl (13.0-16.5); Lymphocyte # 2.09 X10^3/ul (4.0); Lymphocyte % 17.6 % (19-41); Mean Corp Hgb Conc 31.8 g/gl (32-36); Mean Corpuscular Hgb 30.3 pg (27.0-32.0); Mean Corpuscular Volume 95.3 fL (80-94); Mean Platelet Vol. 8.9 fl (6.2-12.0); Monocyte# 1.03 X10^3/uL; Monocyte% 8.7 % (0-10); Neutrophil # 8.51 X10^3/uL (2.7-7.7); Neutrophil % 71.8 % (47-70); Platelet Count 196 K/mm3 (150-450); RBC Distribution Width CV 17.1 % (11.6-14.6); RBC Distribution Width SD 57.1 fl (35.1-43.9); Red Blood Count 3.17 M/mm3 (4.6-6.2); White Blood Count 11.9 K/mm3 (4.4-11.0)
[2018-07-08 05:36] LABS: POSITIVE COUNT NO; POSITIVE DIFFERENTIAL NO; POSITIVE MORPHOLOGY NO
[2018-07-08] MEDS: 0.9% NaCl Peripheral Flush Adult/Peds IV ×2 (05:37→19:58)
[2018-07-08] MEDS: Morphine 2 MG/ML Syringe 1 MG IV ×3 (05:45→19:57)
[2018-07-08] MEDS: Heparin Injection (Vial) 5,000 UNIT/ML VIAL 5000 UNIT SC ×3 (05:47→22:29)
[2018-07-08 05:58] LABS: ALB/GLOB Ratio 0.6 RATIO (0.9-2.4); AST(SGOT) 18 U/L (15-37); Alanine Aminotransfer ALT/SGPT 27 U/L (16-61); Albumin, Serum 2.3 g/dL (3.2-5.0); Alkaline Phosphatase 86 U/L (45-117); Anion Gap 11 (5-15); BUN 71 mg/dL (7-18); BUN/Creat Ratio 47.7 RATIO (10-20); Calcium,Total 8.2 mg/dL (8.5-10.1); Chloride 115 mmol/L (98-107); Creatinine, Serum 1.49 mg/dL (0.70-1.30); EST Glomerular Filtration Rate 49 mL/min (>60); Est Glom Filt Rate - Afr Amer 59 mL/min (>60); Estimated Creatinine Clearance 39.25 ml/min; Globulin 3.7 g/dL (2.2-4.2); Glucose 157 mg/dL (74-106); Potassium 3.7 mmol/L (3.5-5.1); Sodium Level 144 mmol/L (136-145)
[2018-07-08] MEDS: 0.9% Normal Saline 1,000 ML 75 ML IV (06:52)
[2018-07-08 07:30] LABS: Bedside Glucose 158 mg/dL (70-110)
[2018-07-08 07:53] VITALS: BP 101/50; PULSE 87; RESP 16; TEMP 36.6; O2SAT 98
--- NOTE | 2018-07-08 08:20 | PCM.PN.HOSP ---
Patient Problems: Active and Suspected Problems (Last Reviewed 07/07/18 @ 14:24 by Carlitos Bowers MD) Small bowel obstruction, partial (Acute) Subjective: Feels better with the NG tube and since yesterday. Abdominal pain has improved, no bowel movement or flatus yet Vitals/I&O's: Vital Signs Temp Pulse Resp BP Pulse Ox 97.9 F 87 16 101/50 L 98 07/08/18 07:53 07/08/18 07:53 07/08/18 07:53 07/08/18 07:53 07/08/18 07:53 Oxygen Delivery Method Room Air Weight: 156 lb 1.396 oz Body Mass Index (BMI) 25.2 Finger Stick Blood Glucose 160 Intake and Output for Last 24 Hours 07/06/18 07/07/18 07/08/18 23:59 23:59 23:59 Intake Total 247 / 247 873 / 873 Output Total 400 / 400 350 / 350 Balance -153 / -153 523 / 523 General: Alert, Oriented x3, Cooperative, No apparent distress HEENT: Atraumatic, PERRLA, EOMI, Normocephalic, - - NG tube in place Oral: Moist Mucosa Neck: Supple, No JVD Lungs: Clear to auscultation, Normal air movement, No rhonchi, No wheeze, No rales, Diminished Cardiovascular: Regular rate, Regular Rhythm, Normal S1, Normal S2, No murmurs Abdomen: Soft, Non Tender, Non-Distended, No Hepato-splenomegaly Extremities: No edema, Capillary Refill Less than 3 Seconds Skin: No rashes, No breakdown Neurological: Neuro grossly intact, Sensory exam intact to light touch and pain, - - 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 Psych/Mental Status: Normal Affect, Appropriate Laboratory Results 07/07/18 12:05: WBC 15.2 H, RBC 3.83 L, Hgb 11.8 L, Hct 35.4 L, MCV 92.4, MCH 30.8, MCHC 33.3, RDW 17.0 H, RDW Differential 57.8 H, Plt Count 217, MPV 8.9, Immature Gran % (Auto) 0.300, Neut % (Auto) 80.9 H, Lymph % (Auto) 12.5 L, [place] % (Auto) 5.7, Eos % (Auto) 0.5, Baso % (Auto) 0.1, Absolute Neuts (auto) 12.3 H, Absolute Lymphs (auto) 1.91, Total Counted Not Reportable 07/07/18 12:05: Sodium 142, Potassium 4.0, Chloride 109 H, Carbon Dioxide 20.0 L, Anion Gap 13, BUN 71 H, Creatinine 1.50 H, Estim Creat Clear Calc 38.99, Est GFR (MDRD) Af Amer 59 L, Est GFR (MDRD) Non-Af 49 L, BUN/Creatinine Ratio 47.3 H, Glucose 195 H, Calcium 9.4, Total Bilirubin 0.30, AST 28, ALT 36, Alkaline Phosphatase 112, Total Protein 7.3, Albumin 2.9 L, Globulin 4.4 H, Albumin/Globulin Ratio 0.7 L, Lipase 281 07/07/18 12:05: Lactic Acid 1.8 07/07/18 17:27: POC Glucose 160 H 07/08/18 01:12: POC Glucose 158 H 07/08/18 05:24: WBC 11.9 H, RBC 3.17 L, Hgb 9.6 L, Hct 30.2 L, MCV 95.3 H, MCH 30.3, MCHC 31.8 L, RDW 17.1 H, RDW Differential 57.1 H, Plt Count 196, MPV 8.9, Immature Gran % (Auto) 0.200, Neut % (Auto) 71.8 H, Lymph % (Auto) 17.6 L, [place] % (Auto) 8.7, Eos % (Auto) 1.5, Baso % (Auto) 0.2, Absolute Neuts (auto) 8.5 H, Absolute Lymphs (auto) 2.09, Total Counted Not Reportable 07/08/18 05:24: Sodium 144, Potassium 3.7, Chloride 115 H, Carbon Dioxide 18.0 L, Anion Gap 11, BUN 71 H, Creatinine 1.49 H, Estim Creat Clear Calc 39.25, Est GFR (MDRD) Af Amer 59 L, Est GFR (MDRD) Non-Af 49 L, BUN/Creatinine Ratio 47.7 H, Glucose 157 H, Calcium 8.2 L, Total Bilirubin 0.20, AST 18, ALT 27, Alkaline Phosphatase 86, Total Protein 6.0 L, Albumin 2.3 L, Globulin 3.7, Albumin/Globulin Ratio 0.6 L 07/08/18 05:55: POC Glucose 158 H Current Medications Acetaminophen (Tylenol) 650 mg PO Q6H PRN PRN PRN Reason: Mild Pain (1-3)/Temp > 100.7 F Alprazolam (Xanax) 0.5 mg NG QHS PRN PRN PRN Reason: SLEEP Carvedilol (Coreg) 25 mg NG BID [facility] Dextrose (D50w Syringe) 0 gm IV X1 PRN; Protocol PRN Reason: Hypoglycemia Glucagon () 1 mg IM .X1 PRN PRN Reason: Hypoglycemia Heparin Sodium (Porcine) (Heparin Na) 5,000 unit SC Q8 [facility] Last Admin: 07/08/18 05:47 Dose: 5,000 unit Sodium Chloride () 1,000 mls @ 75 mls/hr IV .[id number] [facility] Stop: 07/08/18 19:56 Last Admin: 07/08/18 06:52 Dose: 75 mls/hr Insulin Human Lispro (Humalog Kwikpen (Bkc)) 0 unit SQ Q6 BITA; Protocol Last Admin: 07/08/18 05:56 Dose: Not Given Levothyroxine Sodium (Synthroid) 25 mcg NG DAILY@0600 [facility] Last Admin: 07/08/18 07:47 Dose: Not Given Morphine Sulfate () 1 mg IV Q4H PRN PRN PRN Reason: Severe pain (7-10/10) Last Admin: 07/08/18 05:45 Dose: 1 mg Nitroglycerin (Nitrostat) 0.4 mg SUBLINGUAL Q5M PRN PRN Reason: CARDIAC/CHEST PAIN Ondansetron HCl (Zofran) 4 mg IV Q8H PRN PRN PRN Reason: NAUSEA/VOMITING Sodium Chloride () 5 - 15 ml IV UD PRN PRN Reason: SALINE FLUSH Last Admin: 07/08/18 05:37 Dose: 10 ml Medical Necessity - Tobacco Use Smoking Status: Never smoker Tobacco Use: Non-smoker Assessment/Plan All Active Problems (Last Reviewed 07/07/18 @ 14:24 by Carlitos Bowers MD) Small bowel obstruction, partial (Acute) Abscess of right hip (Acute) Methicillin resistant Staphylococcus aureus infection (Acute) Family history of skin cancer (Acute) Blister of left leg without infection (Acute) Hypotension (Acute) Probable sepsis (Acute) Infected pressure ulcer (Acute) Abdominal pain (Acute) Acute kidney injury (Acute) Septic shock (Acute) Pressure ulcer of sacral region, stage 3 (Acute) Scrotal ulcer (Acute) Complicated UTI (urinary tract infection) (Acute) Constipation (Acute) Pressure ulcer of perianal region (Resolved) Pressure ulcer of buttock (Resolved) UTI (urinary tract infection) (Acute) 1. Acute small bowel obstruction status post colostomy and ileostomy/dehydration/leukocytosis -Appreciate general surgery assistance -Continue with NG tube to low intermittent wall suction -Pain meds as needed -Continue with IV fluids and monitor renal function -Cytosis is resolving without any intervention indicating it is reactive 2. 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 DM2/CKD 3/neuropathy -Currently n.p.o., will continue with insulin and Accu-Cheks -Blood glucose appears to be stable today 4. HTN -SBP is stable -Continue with his home medications DVT: Heparin Code Visit Inpatient E&M: 90001 Subs Hosp L2
--- NOTE | 2018-07-08 08:26 | PN_ITS ---
Patient Problems: Active and Suspected Problems (Last Reviewed 07/07/18 @ 14:24 by Carlitos Bowers MD) Small bowel obstruction, partial (Acute) Subjective: Feels better with the NG tube and since yesterday. Abdominal pain has improved, no bowel movement or flatus yet Vitals/I&O's: Vital Signs Temp Pulse Resp BP Pulse Ox 97.9 F 87 16 101/50 L 98 07/08/18 07:53 07/08/18 07:53 07/08/18 07:53 07/08/18 07:53 07/08/18 07:53 Oxygen Delivery Method Room Air Weight: 156 lb 1.396 oz Body Mass Index (BMI) 25.2 Finger Stick Blood Glucose 160 Intake and Output for Last 24 Hours 07/06/18 07/07/18 07/08/18 23:59 23:59 23:59 Intake Total 247 / 247 873 / 873 Output Total 400 / 400 350 / 350 Balance -153 / -153 523 / 523 General: Alert, Oriented x3, Cooperative, No apparent distress HEENT: Atraumatic, PERRLA, EOMI, Normocephalic, - - NG tube in place Oral: Moist Mucosa Neck: Supple, No JVD Lungs: Clear to auscultation, Normal air movement, No rhonchi, No wheeze, No rales, Diminished Cardiovascular: Regular rate, Regular Rhythm, Normal S1, Normal S2, No murmurs Abdomen: Soft, Non Tender, Non-Distended, No Hepato-splenomegaly Extremities: No edema, Capillary Refill Less than 3 Seconds Skin: No rashes, No breakdown Neurological: Neuro grossly intact, Sensory exam intact to light touch and pain, - - 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 Psych/Mental Status: Normal Affect, Appropriate Laboratory Results 07/07/18 12:05: WBC 15.2 H, RBC 3.83 L, Hgb 11.8 L, Hct 35.4 L, MCV 92.4, MCH 30.8, MCHC 33.3, RDW 17.0 H, RDW Differential 57.8 H, Plt Count 217, MPV 8.9, Immature Gran % (Auto) 0.300, Neut % (Auto) 80.9 H, Lymph % (Auto) 12.5 L, [place] % (Auto) 5.7, Eos % (Auto) 0.5, Baso % (Auto) 0.1, Absolute Neuts (auto) 12.3 H, Absolute Lymphs (auto) 1.91, Total Counted Not Reportable 07/07/18 12:05: Sodium 142, Potassium 4.0, Chloride 109 H, Carbon Dioxide 20.0 L , Anion Gap 13, BUN 71 H, Creatinine 1.50 H, Estim Creat Clear Calc 38.99, Est GFR (MDRD) Af Amer 59 L, Est GFR (MDRD) Non-Af 49 L, BUN/Creatinine Ratio 47.3 H , Glucose 195 H, Calcium 9.4, Total Bilirubin 0.30, AST 28, ALT 36, Alkaline Phosphatase 112, Total Protein 7.3, Albumin 2.9 L, Globulin 4.4 H, Albumin/Globulin Ratio 0.7 L, Lipase 281 07/07/18 12:05: Lactic Acid 1.8 07/07/18 17:27: POC Glucose 160 H 07/08/18 01:12: POC Glucose 158 H 07/08/18 05:24: WBC 11.9 H, RBC 3.17 L, Hgb 9.6 L, Hct 30.2 L, MCV 95.3 H, MCH 30.3, MCHC 31.8 L, RDW 17.1 H, RDW Differential 57.1 H, Plt Count 196, MPV 8.9, Immature Gran % (Auto) 0.200, Neut % (Auto) 71.8 H, Lymph % (Auto) 17.6 L, [place] % (Auto) 8.7, Eos % (Auto) 1.5, Baso % (Auto) 0.2, Absolute Neuts (auto) 8.5 H, Absolute Lymphs (auto) 2.09, Total Counted Not Reportable 07/08/18 05:24: Sodium 144, Potassium 3.7, Chloride 115 H, Carbon Dioxide 18.0 L , Anion Gap 11, BUN 71 H, Creatinine 1.49 H, Estim Creat Clear Calc 39.25, Est GFR (MDRD) Af Amer 59 L, Est GFR (MDRD) Non-Af 49 L, BUN/Creatinine Ratio 47.7 H , Glucose 157 H, Calcium 8.2 L, Total Bilirubin 0.20, AST 18, ALT 27, Alkaline Phosphatase 86, Total Protein 6.0 L, Albumin 2.3 L, Globulin 3.7, Albumin/Globulin Ratio 0.6 L 07/08/18 05:55: POC Glucose 158 H Current Medications Acetaminophen (Tylenol) 650 mg PO Q6H PRN PRN PRN Reason: Mild Pain (1-3)/Temp > 100.7 F Alprazolam (Xanax) 0.5 mg NG QHS PRN PRN PRN Reason: SLEEP Carvedilol (Coreg) 25 mg NG BID [facility] Dextrose (D50w Syringe) 0 gm IV X1 PRN; Protocol PRN Reason: Hypoglycemia Glucagon () 1 mg IM .X1 PRN PRN Reason: Hypoglycemia Heparin Sodium (Porcine) (Heparin Na) 5,000 unit SC Q8 [facility] Last Admin: 07/08/18 05:47 Dose: 5,000 unit Sodium Chloride () 1,000 mls @ 75 mls/hr IV .[id number] [facility] Stop: 07/08/18 19:56 Last Admin: 07/08/18 06:52 Dose: 75 mls/hr Insulin Human Lispro (Humalog Kwikpen (Bkc)) 0 unit SQ Q6 BITA; Protocol Last Admin: 07/08/18 05:56 Dose: Not Given Levothyroxine Sodium (Synthroid) 25 mcg NG DAILY@0600 [facility] Last Admin: 07/08/18 07:47 Dose: Not Given Morphine Sulfate () 1 mg IV Q4H PRN PRN PRN Reason: Severe pain (7-10/10) Last Admin: 07/08/18 05:45 Dose: 1 mg Nitroglycerin (Nitrostat) 0.4 mg SUBLINGUAL Q5M PRN PRN Reason: CARDIAC/CHEST PAIN Ondansetron HCl (Zofran) 4 mg IV Q8H PRN PRN PRN Reason: NAUSEA/VOMITING Sodium Chloride () 5 - 15 ml IV UD PRN PRN Reason: SALINE FLUSH Last Admin: 07/08/18 05:37 Dose: 10 ml Medical Necessity - Tobacco Use Smoking Status: Never smoker Tobacco Use: Non-smoker Assessment/Plan All Active Problems (Last Reviewed 07/07/18 @ 14:24 by Carlitos Bowers MD) Small bowel obstruction, partial (Acute) Abscess of right hip (Acute) Methicillin resistant Staphylococcus aureus infection (Acute) Family history of skin cancer (Acute) Blister of left leg without infection (Acute) Hypotension (Acute) Probable sepsis (Acute) Infected pressure ulcer (Acute) Abdominal pain (Acute) Acute kidney injury (Acute) Septic shock (Acute) Pressure ulcer of sacral region, stage 3 (Acute) Scrotal ulcer (Acute) Complicated UTI (urinary tract infection) (Acute) Constipation (Acute) Pressure ulcer of perianal region (Resolved) Pressure ulcer of buttock (Resolved) UTI (urinary tract infection) (Acute) 1. Acute small bowel obstruction status post colostomy and ileostomy/dehydration/leukocytosis -Appreciate general surgery assistance -Continue with NG tube to low intermittent wall suction -Pain meds as needed -Continue with IV fluids and monitor renal function -Cytosis is resolving without any intervention indicating it is reactive 2. 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 DM2/CKD 3/neuropathy -Currently n.p.o., will continue with insulin and Accu-Cheks -Blood glucose appears to be stable today 4. HTN -SBP is stable -Continue with his home medications DVT: Heparin Code Visit Inpatient E&M: 75104 Subs Hosp L2
[2018-07-08 09:29] VITALS: BP 117/66; PULSE 81; RESP 18; TEMP 37.1; O2SAT 100
--- NOTE | 2018-07-08 10:05 | PCM.PN.SRG ---
Patient Problems: Active and Suspected Problems (Last Reviewed 07/07/18 @ 14:24 by Carlitos Bowers MD) Small bowel obstruction, partial (Acute) Subjective: Patient evaluated resting comfortably in bed. He notes soreness in his abdomen. He notes improvement since coming into the hospital. Denies nausea, vomiting. Tolerating ice chips. - Physical Exam General: Alert, Oriented x3, Cooperative Abdomen: Soft, Non-Distended, Hypoactive Bowel Sounds, Tender - LUQ, - - Air within the colostomy bag. Urostomy in place. Vital Signs Temp Pulse Resp BP Pulse Ox 98.7 F 81 18 117/66 100 07/08/18 09:29 07/08/18 09:29 07/08/18 09:29 07/08/18 09:29 07/08/18 09:29 Oxygen Delivery Method Room Air Weight: 156 lb 1.396 oz Body Mass Index (BMI) 25.2 Finger Stick Blood Glucose 160 Intake and Output for Last 24 Hours 07/06/18 07/07/18 07/08/18 23:59 23:59 23:59 Intake Total 247 / 247 873 / 873 Output Total 400 / 400 350 / 350 Balance -153 / -153 523 / 523 Laboratory Tests Past 24 Hrs 07/07/18 07/07/18 07/07/18 12:05 12:05 12:05 WBC 15.2 H RBC 3.83 L Hgb 11.8 L Hct 35.4 L MCV 92.4 MCH 30.8 MCHC 33.3 RDW 17.0 H RDW Differential 57.8 H Plt Count 217 MPV 8.9 Immature Gran % (Auto) 0.300 Neut % (Auto) 80.9 H Lymph % (Auto) 12.5 L [place] % (Auto) 5.7 Eos % (Auto) 0.5 Baso % (Auto) 0.1 Absolute Neuts (auto) 12.3 H Absolute Lymphs (auto) 1.91 Total Counted Not Reportable Sodium 142 Potassium 4.0 Chloride 109 H Carbon Dioxide 20.0 L Anion Gap 13 BUN 71 H Creatinine 1.50 H Estim Creat Clear Calc 38.99 Est GFR (MDRD) Af Amer 59 L Est GFR (MDRD) Non-Af 49 L BUN/Creatinine Ratio 47.3 H Glucose 195 H Lactic Acid 1.8 Calcium 9.4 Total Bilirubin 0.30 AST 28 ALT 36 Alkaline Phosphatase 112 Total Protein 7.3 Albumin 2.9 L Globulin 4.4 H Albumin/Globulin Ratio 0.7 L Lipase 281 07/08/18 07/08/18 05:24 05:24 WBC 11.9 H RBC 3.17 L Hgb 9.6 L Hct 30.2 L MCV 95.3 H MCH 30.3 MCHC 31.8 L RDW 17.1 H RDW Differential 57.1 H Plt Count 196 MPV 8.9 Immature Gran % (Auto) 0.200 Neut % (Auto) 71.8 H Lymph % (Auto) 17.6 L [place] % (Auto) 8.7 Eos % (Auto) 1.5 Baso % (Auto) 0.2 Absolute Neuts (auto) 8.5 H Absolute Lymphs (auto) 2.09 Total Counted Not Reportable Sodium 144 Potassium 3.7 Chloride 115 H Carbon Dioxide 18.0 L Anion Gap 11 BUN 71 H Creatinine 1.49 H Estim Creat Clear Calc 39.25 Est GFR (MDRD) Af Amer 59 L Est GFR (MDRD) Non-Af 49 L BUN/Creatinine Ratio 47.7 H Glucose 157 H Lactic Acid Calcium 8.2 L Total Bilirubin 0.20 AST 18 ALT 27 Alkaline Phosphatase 86 Total Protein 6.0 L Albumin 2.3 L Globulin 3.7 Albumin/Globulin Ratio 0.6 L Lipase POC Glucose 07/08/18 07/08/18 07/07/18 05:55 01:12 17:27 POC Glucose 158 H 158 H 160 H Medical Necessity - Tobacco Use Smoking Status: Never smoker Tobacco Use: Non-smoker Assessment/Plan All Active Problems (Last Reviewed 07/07/18 @ 14:24 by Carlitos Bowers MD) Small bowel obstruction, partial (Acute) Abscess of right hip (Acute) Methicillin resistant Staphylococcus aureus infection (Acute) Family history of skin cancer (Acute) Blister of left leg without infection (Acute) Hypotension (Acute) Probable sepsis (Acute) Infected pressure ulcer (Acute) Abdominal pain (Acute) Acute kidney injury (Acute) Septic shock (Acute) Pressure ulcer of sacral region, stage 3 (Acute) Scrotal ulcer (Acute) Complicated UTI (urinary tract infection) (Acute) Constipation (Acute) Pressure ulcer of perianal region (Resolved) Pressure ulcer of buttock (Resolved) UTI (urinary tract infection) (Acute) I am following this patient in conjunction with Dr. Bowers. Impression: small bowel obstruction. Labs reviewed Continue NG tube May have ice chips. Patient discussed with Dr. Bowers to also have sips of coffee. Continue IV hydration We will continue to monitor this patient Code Visit Inpatient E&M: 71539 Subs Hosp L1
--- NOTE | 2018-07-08 10:20 | NURSING ---
wound photo: right abdomen
--- NOTE | 2018-07-08 10:20 | NURSING ---
wound photo: left lateral lower leg
--- NOTE | 2018-07-08 10:21 | NURSING ---
wound photo: right hip
[2018-07-08 11:56] LABS: Bedside Glucose 121 mg/dL (70-110)
[2018-07-08] MEDS: Dextrose 5%/0.9% NaCl 1,000 ML 100 ML IV (14:17)
--- NOTE | 2018-07-08 14:22 | CASEMGMT ---
YOVANY LUNA called [facility] to confirm if patient is active. 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 Contact information for Kaila at [facility] P: [phone] F:[phone].
[2018-07-08 14:58] VITALS: BP 154/86; PULSE 86; RESP 18; TEMP 37; O2SAT 94
[2018-07-08 17:06] LABS: Bedside Glucose 139 mg/dL (70-110)
[2018-07-08 20:19] VITALS: BP 146/73; PULSE 93; RESP 18; TEMP 36.8; O2SAT 98
[2018-07-08] MEDS: Carvedilol 25 MG Tablet NG (22:28)
[2018-07-08 22:46] LABS: Bedside Glucose 128 mg/dL (70-110)
[2018-07-09] MEDS: Dextrose 5%/0.9% NaCl 1,000 ML 100 ML IV ×2 (00:57→11:20)
[2018-07-09 02:30] VITALS: BP 133/61; PULSE 94; RESP 18; TEMP 36.8; O2SAT 95
[2018-07-09] MEDS: Ondansetron 4 MG/2 ML Vial IV ×2 (04:27→23:41)
[2018-07-09] MEDS: 0.9% NaCl Peripheral Flush Adult/Peds IV ×3 (04:31→23:41)
[2018-07-09 04:40] LABS: Bedside Glucose 160 mg/dL (70-110)
[2018-07-09] MEDS: Morphine 2 MG/ML Syringe 1 MG IV (06:21)
[2018-07-09] MEDS: Levothyroxine 25 MCG TABLET NG (06:32)
[2018-07-09] MEDS: Heparin Injection (Vial) 5,000 UNIT/ML VIAL 5000 UNIT SC ×3 (06:32→22:51)
[2018-07-09 06:36] LABS: Absolute Lymphocyte Count 1.54 X10^3/ul (0.83-4.51); Absolute Neutrophil Count 4.4 X10^3/uL (2.0-7.7); Basophil# 0.01 X10^3/uL; Basophil% 0.1 % (0-1); Eosinophils% 8.5 % (0-5); Hematocrit 28.9 % (40-54); Hemoglobin 9.4 g/dl (13.0-16.5); Lymphocyte # 1.54 X10^3/ul (4.0); Lymphocyte % 21.7 % (19-41); Mean Corp Hgb Conc 32.5 g/gl (32-36); Mean Corpuscular Hgb 31.2 pg (27.0-32.0); Monocyte# 0.59 X10^3/uL; Monocyte% 8.3 % (0-10); Neutrophil # 4.35 X10^3/uL (2.7-7.7); Neutrophil % 61.3 % (47-70); Platelet Count 180 K/mm3 (150-450); RBC Distribution Width CV 16.6 % (11.6-14.6); RBC Distribution Width SD 55.4 fl (35.1-43.9); Red Blood Count 3.01 M/mm3 (4.6-6.2); White Blood Count 7.1 K/mm3 (4.4-11.0)
[2018-07-09 06:44] LABS: POSITIVE COUNT NO; POSITIVE DIFFERENTIAL NO; POSITIVE MORPHOLOGY NO
[2018-07-09 06:56] LABS: Anion Gap 11 (5-15); BUN 56 mg/dL (7-18); BUN/Creat Ratio 48.7 RATIO (10-20); Chloride 120 mmol/L (98-107); Creatinine, Serum 1.15 mg/dL (0.70-1.30); EST Glomerular Filtration Rate 66 mL/min (>60); Est Glom Filt Rate - Afr Amer 80 mL/min (>60); Estimated Creatinine Clearance 50.86 ml/min; Glucose 158 mg/dL (74-106); Potassium 3.5 mmol/L (3.5-5.1); Sodium Level 150 mmol/L (136-145)
[2018-07-09 09:45] VITALS: BP 141/68; PULSE 81; RESP 18; TEMP 36.7; O2SAT 95
[2018-07-09] MEDS: Carvedilol 25 MG Tablet NG (09:49)
--- NOTE | 2018-07-09 10:00 | PCM.PN.HOSP ---
Patient Problems: Active and Suspected Problems (Last Reviewed 07/07/18 @ 14:24 by Carlitos Bowers MD) Small bowel obstruction, partial (Acute) Subjective: Feels a little bit better today. He has not had a bowel movement but he does have flatus. His abdominal pain now but he did have some earlier this morning. He has had 425 mL's from his NG tube out today though some of this is ice chips and a little bit of coffee Vitals/I&O's: Vital Signs Temp Pulse Resp BP Pulse Ox 98.0 F 81 18 141/68 H 95 07/09/18 09:45 07/09/18 09:45 07/09/18 09:45 07/09/18 09:45 07/09/18 09:45 Oxygen Delivery Method Room Air Weight: 213 lb 13.574 oz Body Mass Index (BMI) 25.2 Finger Stick Blood Glucose 160 Intake and Output for Last 24 Hours 07/07/18 07/08/18 07/09/18 23:59 23:59 23:59 Intake Total 247 / 247 2356 / 2356 663 / 663 Output Total 400 / 400 1250 / 1250 1050 / 1050 Balance -153 / -153 1106 / 1106 -387 / -387 General: Alert, Oriented x3, Cooperative, No apparent distress HEENT: Atraumatic, PERRLA, EOMI, Normocephalic, - - NG tube in place Oral: Moist Mucosa Neck: Supple, No JVD Lungs: Clear to auscultation, Normal air movement, No rhonchi, No wheeze, No rales, Diminished Cardiovascular: Regular rate, Regular Rhythm, Normal S1, Normal S2, No murmurs Abdomen: Soft, Non Tender, Non-Distended, No Hepato-splenomegaly, colostomy and urostomy look okay Extremities: No edema, Capillary Refill Less than 3 Seconds Skin: Large buttock wound is healing well Neurological: Neuro grossly intact, Sensory exam intact to light touch and pain, - - 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 difficile DNA Amplification - Final Laboratory Results 07/08/18 11:48: POC Glucose 121 H 07/08/18 16:57: POC Glucose 139 H 07/08/18 22:17: POC Glucose 128 H 07/09/18 04:19: POC Glucose 160 H 07/09/18 05:50: WBC 7.1, RBC 3.01 L, Hgb 9.4 L, Hct 28.9 L, MCV 96.0 H, MCH 31.2, MCHC 32.5, RDW 16.6 H, RDW Differential 55.4 H, Plt Count 180, MPV 9.0, Immature Gran % (Auto) 0.100, Neut % (Auto) 61.3, Lymph % (Auto) 21.7, [place] % (Auto) 8.3, Eos % (Auto) 8.5 H, Baso % (Auto) 0.1, Absolute Neuts (auto) 4.4, Absolute Lymphs (auto) 1.54, Total Counted Not Reportable 07/09/18 05:50: Sodium 150 H, Potassium 3.5, Chloride 120 H, Carbon Dioxide 19.0 L, Anion Gap 11, BUN 56 H, Creatinine 1.15, Estim Creat Clear Calc 50.86, Est GFR (MDRD) Af Amer 80, Est GFR (MDRD) Non-Af 66, BUN/Creatinine Ratio 48.7 H, Glucose 158 H, Calcium 8.0 L Current Medications Acetaminophen (Tylenol) 650 mg PO Q6H PRN PRN PRN Reason: Mild Pain (1-3)/Temp > 100.7 F Alprazolam (Xanax) 0.5 mg NG QHS PRN PRN PRN Reason: SLEEP Carvedilol (Coreg) 25 mg NG BID ON LICENSE OF [facility] Last Admin: 07/09/18 09:49 Dose: 25 mg Dextrose (D50w Syringe) 0 gm IV X1 PRN; Protocol PRN Reason: Hypoglycemia Glucagon () 1 mg IM .X1 PRN PRN Reason: Hypoglycemia Heparin Sodium (Porcine) (Heparin Na) 5,000 unit SC Q8 ON LICENSE OF [facility] Last Admin: 07/09/18 06:32 Dose: 5,000 unit Dextrose/Sodium Chloride (Dextrose 5%/0.9% Nacl) 1,000 mls @ 100 mls/hr IV .Q10H ON LICENSE OF [facility] Last Admin: 07/09/18 00:57 Dose: 100 mls/hr Insulin Human Lispro (Humalog Kwikpen (Bkc)) 0 unit SQ Q6 [facility]; Protocol Last Admin: 07/09/18 07:44 Dose: Not Given Levothyroxine Sodium (Synthroid) 25 mcg NG DAILY@0600 [facility] Last Admin: 07/09/18 06:32 Dose: 25 mcg Morphine Sulfate () 1 mg IV Q4H PRN PRN PRN Reason: Severe pain (7-10/10) Last Admin: 07/09/18 06:21 Dose: 1 mg Nitroglycerin (Nitrostat) 0.4 mg SUBLINGUAL Q5M PRN PRN Reason: CARDIAC/CHEST PAIN Ondansetron HCl (Zofran) 4 mg IV Q8H PRN PRN PRN Reason: NAUSEA/VOMITING Last Admin: 07/09/18 04:27 Dose: 4 mg Sodium Chloride () 5 - 15 ml IV UD PRN PRN Reason: SALINE FLUSH Last Admin: 07/09/18 06:21 Dose: 10 ml Medical Necessity - Tobacco Use Smoking Status: Never smoker Tobacco Use: Non-smoker Assessment/Plan All Active Problems (Last Reviewed 07/07/18 @ 14:24 by Carlitos Bowers MD) Small bowel obstruction, partial (Acute) Abscess of right hip (Acute) Methicillin resistant Staphylococcus aureus infection (Acute) Family history of skin cancer (Acute) Blister of left leg without infection (Acute) Hypotension (Acute) Probable sepsis (Acute) Infected pressure ulcer (Acute) Abdominal pain (Acute) Acute kidney injury (Acute) Septic shock (Acute) Pressure ulcer of sacral region, stage 3 (Acute) Scrotal ulcer (Acute) Complicated UTI (urinary tract infection) (Acute) Constipation (Acute) Pressure ulcer of perianal region (Resolved) Pressure ulcer of buttock (Resolved) UTI (urinary tract infection) (Acute) 1. Acute small bowel obstruction status post colostomy and ileostomy/dehydration/leukocytosis -Appreciate general surgery assistance -Continue with NG tube to low intermittent wall suction -Pain meds as needed -Continue with IV fluids and monitor renal function -Leukocytosis is resolving without any intervention indicating it is reactive 2. 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 DM2/CKD 3/neuropathy -Currently n.p.o., will continue with insulin and Accu-Cheks -Blood glucose appears to be stable today -Renal function is at baseline 4. HTN -SBP is stable -Continue with his home medications DVT: Heparin Code Visit Inpatient E&M: 50223 Subs Hosp L2
[2018-07-09 12:06] LABS: Bedside Glucose 150 mg/dL (70-110)
--- NOTE | 2018-07-09 14:44 | PCM.PN.SRG ---
Patient Problems: Active and Suspected Problems (Last Reviewed 07/07/18 @ 14:24 by Carlitos Bowers MD) Small bowel obstruction, partial (Acute) Subjective: Patient is evaluated sitting comfortably in bed this morning. He notes very minimal amount of epigastric discomfort. He denies nausea, vomiting. He is tolerating sips and chips and coffee. Patient notes air within his colostomy along with liquidy stools. He has had 400 output out of his NG tube. - Physical Exam General: Alert, Oriented x3, Cooperative HEENT: - - NG tube with greenish fluid within the canister Abdomen: Bowel Sounds Present, Soft, Non-Distended, Tender - slight tenderness to the epigastric region, - - Colostomy bag with liquidy brown stool and air within the bag. Vital Signs Temp Pulse Resp BP Pulse Ox 98.0 F 81 18 141/68 H 95 07/09/18 09:45 07/09/18 09:45 07/09/18 09:45 07/09/18 09:45 07/09/18 09:45 Oxygen Delivery Method Room Air Weight: 213 lb 13.574 oz Body Mass Index (BMI) 25.2 Finger Stick Blood Glucose 160 Intake and Output for Last 24 Hours 07/07/18 07/08/18 07/09/18 23:59 23:59 23:59 Intake Total 247 / 247 2356 / 2356 1187 / 1187 Output Total 400 / 400 1250 / 1250 1650 / 1650 Balance -153 / -153 1106 / 1106 -463 / -463 Microbiology Past 72 Hours 07/08/18 09:44 C. difficile DNA Amplification - Final Stool Laboratory Tests Past 24 Hrs 07/09/18 07/09/18 05:50 05:50 WBC 7.1 RBC 3.01 L Hgb 9.4 L Hct 28.9 L MCV 96.0 H MCH 31.2 MCHC 32.5 RDW 16.6 H RDW Differential 55.4 H Plt Count 180 MPV 9.0 Immature Gran % (Auto) 0.100 Neut % (Auto) 61.3 Lymph % (Auto) 21.7 [place] % (Auto) 8.3 Eos % (Auto) 8.5 H Baso % (Auto) 0.1 Absolute Neuts (auto) 4.4 Absolute Lymphs (auto) 1.54 Total Counted Not Reportable Sodium 150 H Potassium 3.5 Chloride 120 H Carbon Dioxide 19.0 L Anion Gap 11 BUN 56 H Creatinine 1.15 Estim Creat Clear Calc 50.86 Est GFR (MDRD) Af Amer 80 Est GFR (MDRD) Non-Af 66 BUN/Creatinine Ratio 48.7 H Glucose 158 H Calcium 8.0 L POC Glucose 07/09/18 07/09/18 07/08/18 11:24 04:19 22:17 POC Glucose 150 H 160 H 128 H 07/08/18 16:57 POC Glucose 139 H Medical Necessity - Tobacco Use Smoking Status: Never smoker Tobacco Use: Non-smoker Assessment/Plan All Active Problems (Last Reviewed 07/07/18 @ 14:24 by Carlitos Bowers MD) Small bowel obstruction, partial (Acute) Abscess of right hip (Acute) Methicillin resistant Staphylococcus aureus infection (Acute) Family history of skin cancer (Acute) Blister of left leg without infection (Acute) Hypotension (Acute) Probable sepsis (Acute) Infected pressure ulcer (Acute) Abdominal pain (Acute) Acute kidney injury (Acute) Septic shock (Acute) Pressure ulcer of sacral region, stage 3 (Acute) Scrotal ulcer (Acute) Complicated UTI (urinary tract infection) (Acute) Constipation (Acute) Pressure ulcer of perianal region (Resolved) Pressure ulcer of buttock (Resolved) UTI (urinary tract infection) (Acute) I am following this patient in conjunction with Dr. Bowers. Impression: small bowel obstruction. Labs reviewed D/C NG tube May have clear liquids. Continue IV hydration We will continue to monitor this patient Code Visit Inpatient E&M: [id number] [facility] L1
[2018-07-09 14:59] VITALS: BP 149/63; PULSE 73; RESP 18; TEMP 36.9; O2SAT 95
[2018-07-09] MEDS: Dext 5%-0.45% NS 1,000 ML 100 ML IV (16:47)
[2018-07-09 17:00] LABS: Bedside Glucose 148 mg/dL (70-110)
[2018-07-09 20:54] VITALS: BP 150/71; PULSE 85; RESP 18; TEMP 36.8; O2SAT 99
[2018-07-09 22:50] VITALS: BP 148/70; PULSE 90
[2018-07-09] MEDS: Carvedilol 25 MG Tablet PO (22:52)
[2018-07-09 23:51] LABS: Bedside Glucose 156 mg/dL (70-110)
[2018-07-10] VITALS (7 sets, daily range): BP systolic 112–151; BP diastolic 50–69; PULSE 63–83; RESP 16–18; TEMP 36.7–37.2; O2SAT 97–99
[2018-07-10] MEDS: Dext 5%-0.45% NS 1,000 ML 100 ML IV ×3 (02:57→22:29)
[2018-07-10 05:57] LABS: Anion Gap 7 (5-15); BUN 40 mg/dL (7-18); BUN/Creat Ratio 38.8 RATIO (10-20); Calcium,Total 7.8 mg/dL (8.5-10.1); Chloride 119 mmol/L (98-107); Creatinine, Serum 1.03 mg/dL (0.70-1.30); EST Glomerular Filtration Rate 75 mL/min (>60); Est Glom Filt Rate - Afr Amer 91 mL/min (>60); Estimated Creatinine Clearance 56.78 ml/min; Glucose 186 mg/dL (74-106); Potassium 3.5 mmol/L (3.5-5.1); Sodium Level 146 mmol/L (136-145)
[2018-07-10] MEDS: Heparin Injection (Vial) 5,000 UNIT/ML VIAL 5000 UNIT SC ×2 (06:45→22:33)
[2018-07-10] MEDS: Levothyroxine 25 MCG TABLET PO (06:47)
[2018-07-10 06:56] LABS: Bedside Glucose 188 mg/dL (70-110)
[2018-07-10] MEDS: Morphine 2 MG/ML Syringe 1 MG IV ×3 (07:18→15:21)
[2018-07-10] MEDS: Ondansetron 4 MG/2 ML Vial IV ×3 (07:19→22:01)
[2018-07-10] MEDS: 0.9% NaCl Peripheral Flush Adult/Peds IV ×5 (07:21→22:01)
[2018-07-10] MEDS: Carvedilol 25 MG Tablet PO (09:19)
--- NOTE | 2018-07-10 11:19 | PCM.PN.HOSP ---
Patient Problems: Active and Suspected Problems (Last Reviewed 07/07/18 @ 14:24 by Carlitos Bowers MD) Small bowel obstruction, partial (Acute) Subjective: He had his NG tube removed by surgery yesterday afternoon and was advanced on his diet. He still has not had any stool output though he says that they have had to burp his ostomy bag a couple of times. He still has some abdominal discomfort and dry heaves when he was given his pain meds but otherwise no other episodes of nausea. Vitals/I&O's: Vital Signs Temp Pulse Resp BP Pulse Ox 98.8 F 80 18 151/69 H 99 07/10/18 09:05 07/10/18 09:09 07/10/18 09:05 07/10/18 09:05 07/10/18 09:05 Oxygen Delivery Method Room Air Weight: 212 lb 4.882 oz Body Mass Index (BMI) 25.2 Finger Stick Blood Glucose 160 Intake and Output for Last 24 Hours 07/08/18 07/09/18 07/10/18 23:59 23:59 23:59 Intake Total 2356 / 2356 2171 / 2171 905 / 905 Output Total 1250 / 1250 1900 / 1900 500 / 500 Balance 1106 / 1106 271 / 271 405 / 405 General: Alert, Oriented x3, Cooperative, No apparent distress HEENT: Atraumatic, PERRLA, EOMI, Normocephalic Oral: Moist Mucosa Neck: Supple, No JVD Lungs: Clear to auscultation, Normal air movement, No rhonchi, No wheeze, No rales, Diminished Cardiovascular: Regular rate, Regular Rhythm, Normal S1, Normal S2, No murmurs Abdomen: Soft, Non Tender, Non-Distended, No Hepato-splenomegaly, colostomy and urostomy look okay Extremities: No edema, Capillary Refill Less than 3 Seconds Skin: Large buttock wound is healing well Neurological: Neuro grossly intact, Sensory exam intact to light touch and pain, - - 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 difficile DNA Amplification - Final Laboratory Results 07/09/18 11:24: POC Glucose 150 H 07/09/18 16:43: POC Glucose 148 H 07/09/18 23:39: POC Glucose 156 H 07/10/18 05:15: Sodium 146 H, Potassium 3.5, Chloride 119 H, Carbon Dioxide 20.0 L, Anion Gap 7, BUN 40 H, Creatinine 1.03, Estim Creat Clear Calc 56.78, Est GFR (MDRD) Af Amer 91, Est GFR (MDRD) Non-Af 75, BUN/Creatinine Ratio 38.8 H, Glucose 186 H, Calcium 7.8 L 07/10/18 06:45: POC Glucose 188 H Current Medications Acetaminophen (Tylenol) 650 mg PO Q6H PRN PRN PRN Reason: Mild Pain (1-3)/Temp > 100.7 F Alprazolam (Xanax) 0.5 mg PO QHS PRN PRN PRN Reason: SLEEP Carvedilol (Coreg) 25 mg PO BID [facility] Last Admin: 07/10/18 09:19 Dose: 25 mg Dextrose (D50w Syringe) 0 gm IV X1 PRN; Protocol PRN Reason: Hypoglycemia Glucagon () 1 mg IM .X1 PRN PRN Reason: Hypoglycemia Heparin Sodium (Porcine) (Heparin Na) 5,000 unit SC Q8 [facility] Last Admin: 07/10/18 06:45 Dose: 5,000 unit Dextrose/Sodium Chloride () 1,000 mls @ 100 mls/hr IV .Q10H [facility] Last Admin: 07/10/18 02:57 Dose: 100 mls/hr Insulin Human Lispro (Humalog Kwikpen (Bkc)) 0 unit SQ Q6 [facility]; Protocol Last Admin: 07/10/18 06:49 Dose: Not Given Levothyroxine Sodium (Synthroid) 25 mcg PO DAILY@0600 [facility] Last Admin: 07/10/18 06:47 Dose: 25 mcg Morphine Sulfate () 1 mg IV Q4H PRN PRN PRN Reason: Severe pain (7-10/10) Last Admin: 07/10/18 07:18 Dose: 1 mg Nitroglycerin (Nitrostat) 0.4 mg SUBLINGUAL Q5M PRN PRN Reason: CARDIAC/CHEST PAIN Ondansetron HCl (Zofran) 4 mg IV Q8H PRN PRN PRN Reason: NAUSEA/VOMITING Last Admin: 07/10/18 07:19 Dose: 4 mg Sodium Chloride () 5 - 15 ml IV UD PRN PRN Reason: SALINE FLUSH Last Admin: 07/10/18 07:21 Dose: 10 ml Medical Necessity - Tobacco Use Smoking Status: Never smoker Tobacco Use: Non-smoker Assessment/Plan All Active Problems (Last Reviewed 07/07/18 @ 14:24 by Carlitos Bowers MD) Small bowel obstruction, partial (Acute) Abscess of right hip (Acute) Methicillin resistant Staphylococcus aureus infection (Acute) Family history of skin cancer (Acute) Blister of left leg without infection (Acute) Hypotension (Acute) Probable sepsis (Acute) Infected pressure ulcer (Acute) Abdominal pain (Acute) Acute kidney injury (Acute) Septic shock (Acute) Pressure ulcer of sacral region, stage 3 (Acute) Scrotal ulcer (Acute) Complicated UTI (urinary tract infection) (Acute) Constipation (Acute) Pressure ulcer of perianal region (Resolved) Pressure ulcer of buttock (Resolved) UTI (urinary tract infection) (Acute) 1. Acute small bowel obstruction status post colostomy and ileostomy/dehydration/leukocytosis -Appreciate general surgery assistance -We will await evaluation of surgery to decide if NG tube is replaced or if he proceed with surgery or we allow the bowel to recover a little bit more and see if he has output, since he has a little bit more increased abdominal pain today -Pain meds as needed -Continue with IV fluids and monitor renal function -Leukocytosis is resolved 2. 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 DM2/CKD 3/neuropathy -Currently n.p.o., will continue with insulin and Accu-Cheks -Blood glucose 186 -Renal function is at baseline 4. HTN -SBP is stable -Continue with his home medications DVT: Heparin Code Visit Inpatient E&M: 34153 Subs Hosp L2
--- NOTE | 2018-07-10 11:28 | PN_ITS ---
Patient Problems: Active and Suspected Problems (Last Reviewed 07/07/18 @ 14:24 by Carlitos Bowers MD) Small bowel obstruction, partial (Acute) Subjective: He had his NG tube removed by surgery yesterday afternoon and was advanced on his diet. He still has not had any stool output though he says that they have had to burp his ostomy bag a couple of times. He still has some abdominal discomfort and dry heaves when he was given his pain meds but otherwise no other episodes of nausea. Vitals/I&O's: Vital Signs Temp Pulse Resp BP Pulse Ox 98.8 F 80 18 151/69 H 99 07/10/18 09:05 07/10/18 09:09 07/10/18 09:05 07/10/18 09:05 07/10/18 09:05 Oxygen Delivery Method Room Air Weight: 212 lb 4.882 oz Body Mass Index (BMI) 25.2 Finger Stick Blood Glucose 160 Intake and Output for Last 24 Hours 07/08/18 07/09/18 07/10/18 23:59 23:59 23:59 Intake Total 2356 / 2356 2171 / 2171 905 / 905 Output Total 1250 / 1250 1900 / 1900 500 / 500 Balance 1106 / 1106 271 / 271 405 / 405 General: Alert, Oriented x3, Cooperative, No apparent distress HEENT: Atraumatic, PERRLA, EOMI, Normocephalic Oral: Moist Mucosa Neck: Supple, No JVD Lungs: Clear to auscultation, Normal air movement, No rhonchi, No wheeze, No rales, Diminished Cardiovascular: Regular rate, Regular Rhythm, Normal S1, Normal S2, No murmurs Abdomen: Soft, Non Tender, Non-Distended, No Hepato-splenomegaly, colostomy and urostomy look okay Extremities: No edema, Capillary Refill Less than 3 Seconds Skin: Large buttock wound is healing well Neurological: Neuro grossly intact, Sensory exam intact to light touch and pain, - - 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 difficile DNA Amplification - Final Laboratory Results 07/09/18 11:24: POC Glucose 150 H 07/09/18 16:43: POC Glucose 148 H 07/09/18 23:39: POC Glucose 156 H 07/10/18 05:15: Sodium 146 H, Potassium 3.5, Chloride 119 H, Carbon Dioxide 20.0 L, Anion Gap 7, BUN 40 H, Creatinine 1.03, Estim Creat Clear Calc 56.78, Est GFR (MDRD) Af Amer 91, Est GFR (MDRD) Non-Af 75, BUN/Creatinine Ratio 38.8 H, Glucose 186 H, Calcium 7.8 L 07/10/18 06:45: POC Glucose 188 H Current Medications Acetaminophen (Tylenol) 650 mg PO Q6H PRN PRN PRN Reason: Mild Pain (1-3)/Temp > 100.7 F Alprazolam (Xanax) 0.5 mg PO QHS PRN PRN PRN Reason: SLEEP Carvedilol (Coreg) 25 mg PO BID [facility] Last Admin: 07/10/18 09:19 Dose: 25 mg Dextrose (D50w Syringe) 0 gm IV X1 PRN; Protocol PRN Reason: Hypoglycemia Glucagon () 1 mg IM .X1 PRN PRN Reason: Hypoglycemia Heparin Sodium (Porcine) (Heparin Na) 5,000 unit SC Q8 [facility] Last Admin: 07/10/18 06:45 Dose: 5,000 unit Dextrose/Sodium Chloride () 1,000 mls @ 100 mls/hr IV .Q10H [facility] Last Admin: 07/10/18 02:57 Dose: 100 mls/hr Insulin Human Lispro (Humalog Kwikpen (Bkc)) 0 unit SQ Q6 [facility]; Protocol Last Admin: 07/10/18 06:49 Dose: Not Given Levothyroxine Sodium (Synthroid) 25 mcg PO DAILY@0600 [facility] Last Admin: 07/10/18 06:47 Dose: 25 mcg Morphine Sulfate () 1 mg IV Q4H PRN PRN PRN Reason: Severe pain (7-10/10) Last Admin: 07/10/18 07:18 Dose: 1 mg Nitroglycerin (Nitrostat) 0.4 mg SUBLINGUAL Q5M PRN PRN Reason: CARDIAC/CHEST PAIN Ondansetron HCl (Zofran) 4 mg IV Q8H PRN PRN PRN Reason: NAUSEA/VOMITING Last Admin: 07/10/18 07:19 Dose: 4 mg Sodium Chloride () 5 - 15 ml IV UD PRN PRN Reason: SALINE FLUSH Last Admin: 07/10/18 07:21 Dose: 10 ml Medical Necessity - Tobacco Use Smoking Status: Never smoker Tobacco Use: Non-smoker Assessment/Plan All Active Problems (Last Reviewed 07/07/18 @ 14:24 by Carlitos Bowers MD) Small bowel obstruction, partial (Acute) Abscess of right hip (Acute) Methicillin resistant Staphylococcus aureus infection (Acute) Family history of skin cancer (Acute) Blister of left leg without infection (Acute) Hypotension (Acute) Probable sepsis (Acute) Infected pressure ulcer (Acute) Abdominal pain (Acute) Acute kidney injury (Acute) Septic shock (Acute) Pressure ulcer of sacral region, stage 3 (Acute) Scrotal ulcer (Acute) Complicated UTI (urinary tract infection) (Acute) Constipation (Acute) Pressure ulcer of perianal region (Resolved) Pressure ulcer of buttock (Resolved) UTI (urinary tract infection) (Acute) 1. Acute small bowel obstruction status post colostomy and ileostomy/dehydration/leukocytosis -Appreciate general surgery assistance -We will await evaluation of surgery to decide if NG tube is replaced or if he proceed with surgery or we allow the bowel to recover a little bit more and see if he has output, since he has a little bit more increased abdominal pain today -Pain meds as needed -Continue with IV fluids and monitor renal function -Leukocytosis is resolved 2. 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 DM2/CKD 3/neuropathy -Currently n.p.o., will continue with insulin and Accu-Cheks -Blood glucose 186 -Renal function is at baseline 4. HTN -SBP is stable -Continue with his home medications DVT: Heparin Code Visit Inpatient E&M: 87283 Subs Hosp L2
[2018-07-10] MEDS: Insulin Lispro 100 UNIT/ML INSULN.PEN SQ ×2 (11:34→16:58)
[2018-07-10 11:41] LABS: Bedside Glucose 193 mg/dL (70-110)
--- NOTE | 2018-07-10 14:14 | RAD_ITS ---
STUDY: X-RAY - ABDOMEN/PELVIS REASON FOR EXAM: Male, 72 years old. Nausea and vomiting TECHNIQUE: 3 AP films COMPARISON: None. FINDINGS: Stomach is air-filled and distended but there is no plain film evidence of small bowel obstruction or ileus. Left upper quadrant ostomy noted. There is no demonstrated free abdominal air. The visualized liver, spleen and kidneys are grossly normal in size and morphology. Normal soft tissue structures. 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
--- NOTE | 2018-07-10 14:52 | NURSING ---
Ostomy appliance was leaking so changed at this time. pt very nauseated and requested NG tube be inserted. Philippe RN aware.
--- NOTE | 2018-07-10 15:30 | RAD_ITS ---
STUDY: X-RAY - ABDOMEN/PELVIS REASON FOR EXAM: Male, 72 years old. Vomiting, NG tube placement TECHNIQUE: Single AP view of the abdomen / pelvis. COMPARISON: None. FINDINGS: Normal visualized lung bases. NG tube has been placed, tip is at the GE junction. There is an unremarkable bowel gas pattern. There is no demonstrated free abdominal air. The visualized liver, spleen and kidneys are grossly normal in size and morphology. Normal soft tissue structures. Normal visualized osseous structures. RAD/Abdomen Single View (Portable) IMPRESSION: NG tube tip at the GE junction Electronically Signed: Jose Quiles MD at 16:50 EDT , Service support ,
--- NOTE | 2018-07-10 16:10 | RAD_ITS ---
STUDY: X-RAY - ABDOMEN/PELVIS REASON FOR EXAM: Male, 72 years old. Vomiting, NG tube placement TECHNIQUE: Single AP view of the abdomen / pelvis. COMPARISON: None. FINDINGS: Normal visualized lung bases. NG tube tip in the body the stomach There is an unremarkable bowel gas pattern. There is no demonstrated free abdominal air. The visualized liver, spleen and kidneys are grossly normal in size and morphology. Normal soft tissue structures. Normal visualized osseous structures. RAD/Abdomen Single View (Portable) IMPRESSION: No acute findings Electronically Signed: Jose Quiles MD at 16:49 EDT , Service support ,
[2018-07-10 17:11] LABS: Bedside Glucose 233 mg/dL (70-110)
--- NOTE | 2018-07-10 17:54 | NURSING ---
170 Dr Lindsey in room assessed pt. ordered to get gastric occult specimen, and turn of suction until we have the results. Specimen was sent. 175 specimen was negative and suction resumed at LIS. pt resting quietly.
--- NOTE | 2018-07-10 18:01 | PCM.PN.SRG ---
Patient Problems: Active and Suspected Problems (Last Reviewed 07/07/18 @ 14:24 by Carlitos Bowers MD) Small bowel obstruction, partial (Acute) Subjective: Patient had a setback today started having retching no active vomiting though. Still complaining of abdominal discomfort. Still having good stool come out of his colostomy bag. Objective: Abdomen is soft no rebound guarding or peritoneal signs are identified - Physical Exam Vital Signs Temp Pulse Resp BP Pulse Ox 98.1 F 63 18 112/50 L 97 07/10/18 16:46 07/10/18 17:25 07/10/18 16:46 07/10/18 17:25 07/10/18 16:46 Oxygen Delivery Method Room Air Weight: 212 lb 4.882 oz Body Mass Index (BMI) 25.2 Finger Stick Blood Glucose 160 Intake and Output for Last 24 Hours 07/08/18 07/09/18 07/10/18 23:59 23:59 23:59 Intake Total 2356 / 2356 2171 / 2171 2875 / 2875 Output Total 1250 / 1250 1900 / 1900 1410 / 1410 Balance 1106 / 1106 271 / 271 1465 / 1465 Microbiology Past 72 Hours 07/10/18 16:55 Gastric Occult Blood - Final Gastric Fluid/Contents 07/08/18 09:44 C. difficile DNA Amplification - Final Stool Laboratory Tests Past 24 Hrs 07/10/18 05:15 Sodium 146 H Potassium 3.5 Chloride 119 H Carbon Dioxide 20.0 L Anion Gap 7 BUN 40 H Creatinine 1.03 Estim Creat Clear Calc 56.78 Est GFR (MDRD) Af Amer 91 Est GFR (MDRD) Non-Af 75 BUN/Creatinine Ratio 38.8 H Glucose 186 H Calcium 7.8 L POC Glucose 07/10/18 07/10/18 07/10/18 16:39 11:33 06:45 POC Glucose 233 H 193 H 188 H 07/09/18 23:39 POC Glucose 156 H Medical Necessity - Tobacco Use Smoking Status: Never smoker Tobacco Use: Non-smoker Assessment/Plan All Active Problems (Last Reviewed 07/07/18 @ 14:24 by Carlitos Bowers MD) Small bowel obstruction, partial (Acute) Abscess of right hip (Acute) Methicillin resistant Staphylococcus aureus infection (Acute) Family history of skin cancer (Acute) Blister of left leg without infection (Acute) Hypotension (Acute) Probable sepsis (Acute) Infected pressure ulcer (Acute) Abdominal pain (Acute) Acute kidney injury (Acute) Septic shock (Acute) Pressure ulcer of sacral region, stage 3 (Acute) Scrotal ulcer (Acute) Complicated UTI (urinary tract infection) (Acute) Constipation (Acute) Pressure ulcer of perianal region (Resolved) Pressure ulcer of buttock (Resolved) UTI (urinary tract infection) (Acute) Abdominal x-ray showed significantly distended stomach and we are going to replace the NG tube. A lot of air is located within his colon itself I think he just needs more time with IV hydration and NG tube decompression.
[2018-07-10] MEDS: Nystatin Powder 15gm Bottle 1 APPLIC TOPICAL (22:35)
[2018-07-11 00:15] LABS: Bedside Glucose 205 mg/dL (70-110)
[2018-07-11] MEDS: 0.9% NaCl Peripheral Flush Adult/Peds IV (00:17)
[2018-07-11] MEDS: Morphine 2 MG/ML Syringe 1 MG IV (00:17)
[2018-07-11] MEDS: Insulin Lispro 100 UNIT/ML INSULN.PEN SQ ×4 (00:21→17:00)
[2018-07-11 02:50] VITALS: BP 117/57; PULSE 79; RESP 16; TEMP 36.6; O2SAT 97
[2018-07-11 06:20] LABS: Bedside Glucose 198 mg/dL (70-110)
[2018-07-11 07:07] LABS: Absolute Lymphocyte Count 1.87 X10^3/ul (0.83-4.51); Absolute Neutrophil Count 3.8 X10^3/uL (2.0-7.7); Basophil# 0.02 X10^3/uL; Basophil% 0.3 % (0-1); Eosinophil# 0.72 X10^3/uL; Eosinophils% 10.1 % (0-5); Hematocrit 27.5 % (40-54); Hemoglobin 8.8 g/dl (13.0-16.5); Lymphocyte # 1.87 X10^3/ul (4.0); Lymphocyte % 26.2 % (19-41); Mean Corpuscular Hgb 30.3 pg (27.0-32.0); Mean Corpuscular Volume 94.8 fL (80-94); Mean Platelet Vol. 9.4 fl (6.2-12.0); Monocyte# 0.74 X10^3/uL; Monocyte% 10.4 % (0-10); Neutrophil # 3.78 X10^3/uL (2.7-7.7); Neutrophil % 52.9 % (47-70); Platelet Count 180 K/mm3 (150-450); RBC Distribution Width CV 15.7 % (11.6-14.6); RBC Distribution Width SD 52.1 fl (35.1-43.9); White Blood Count 7.1 K/mm3 (4.4-11.0)
[2018-07-11 07:08] LABS: POSITIVE COUNT NO; POSITIVE DIFFERENTIAL NO; POSITIVE MORPHOLOGY NO
[2018-07-11 07:55] LABS: Anion Gap 6 (5-15); BUN 29 mg/dL (7-18); BUN/Creat Ratio 29.3 RATIO (10-20); Calcium,Total 7.6 mg/dL (8.5-10.1); Chloride 115 mmol/L (98-107); Creatinine, Serum 0.99 mg/dL (0.70-1.30); EST Glomerular Filtration Rate 78 mL/min (>60); Est Glom Filt Rate - Afr Amer 95 mL/min (>60); Estimated Creatinine Clearance 59.07 ml/min; Glucose 186 mg/dL (74-106); Sodium Level 142 mmol/L (136-145)
[2018-07-11] MEDS: Dext 5%-0.45% NS 1,000 ML 100 ML IV ×2 (08:10→18:04)
--- NOTE | 2018-07-11 08:37 | PCM.PN.HOSP ---
Patient Problems: Active and Suspected Problems (Last Reviewed 07/07/18 @ 14:24 by Carlitos Bowers MD) Small bowel obstruction, partial (Acute) Subjective: Feels better today after having the NG tube placed last evening. Abdominal pain is improving. Continues to have some air and fecal output in his ostomy Vitals/I&O's: Vital Signs Temp Pulse Resp BP Pulse Ox 98 F 79 16 117/57 L 97 07/11/18 02:50 07/11/18 02:50 07/11/18 02:50 07/11/18 02:50 07/11/18 02:50 Oxygen Delivery Method Room Air Weight: 212 lb 4.882 oz Body Mass Index (BMI) 25.2 Finger Stick Blood Glucose 160 Intake and Output for Last 24 Hours 07/09/18 07/10/18 07/11/18 23:59 23:59 23:59 Intake Total 2171 / 2171 2905 / 2905 1322 / 1322 Output Total 1900 / 1900 2110 / 2110 725 / 725 Balance 271 / 271 795 / 795 597 / 597 General: Alert, Oriented x3, Cooperative, No apparent distress, NG tube in place HEENT: Atraumatic, PERRLA, EOMI, Normocephalic Oral: Moist Mucosa Neck: Supple, No JVD Lungs: Clear to auscultation, Normal air movement, No rhonchi, No wheeze, No rales, Diminished Cardiovascular: Regular rate, Regular Rhythm, Normal S1, Normal S2, No murmurs Abdomen: Soft, Non Tender, Non-Distended, No Hepato-splenomegaly, colostomy and urostomy look okay Extremities: No edema, Capillary Refill Less than 3 Seconds Skin: Large buttock wound is healing well Neurological: Neuro grossly intact, Sensory exam intact to light touch and pain, - - 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 difficile DNA Amplification - Final Laboratory Results 07/10/18 11:33: POC Glucose 193 H 07/10/18 16:39: POC Glucose 233 H 07/11/18 00:01: POC Glucose 205 H 07/11/18 06:00: POC Glucose 198 H 07/11/18 06:20: WBC 7.1, RBC 2.90 L, Hgb 8.8 L, Hct 27.5 L, MCV 94.8 H, MCH 30.3, MCHC 32.0, RDW 15.7 H, RDW Differential 52.1 H, Plt Count 180, MPV 9.4, Immature Gran % (Auto) 0.100, Neut % (Auto) 52.9, Lymph % (Auto) 26.2, [place] % (Auto) 10.4 H, Eos % (Auto) 10.1 H, Baso % (Auto) 0.3, Absolute Neuts (auto) 3.8, Absolute Lymphs (auto) 1.87, Total Counted Not Reportable 07/11/18 06:20: Sodium 142, Potassium 3.0 L, Chloride 115 H, Carbon Dioxide 21.0, Anion Gap 6, BUN 29 H, Creatinine 0.99, Estim Creat Clear Calc 59.07, Est GFR (MDRD) Af Amer 95, Est GFR (MDRD) Non-Af 78, BUN/Creatinine Ratio 29.3 H, Glucose 186 H, Calcium 7.6 L Current Medications Acetaminophen (Tylenol) 650 mg PO Q6H PRN PRN PRN Reason: Mild Pain (1-3)/Temp > 100.7 F Alprazolam (Xanax) 0.5 mg PO QHS PRN PRN PRN Reason: SLEEP Carvedilol (Coreg) 25 mg PO BID [facility] Last Admin: 07/10/18 22:30 Dose: Not Given Dextrose (D50w Syringe) 0 gm IV X1 PRN; Protocol PRN Reason: Hypoglycemia Glucagon () 1 mg IM .X1 PRN PRN Reason: Hypoglycemia Heparin Sodium (Porcine) (Heparin Na) 5,000 unit SC BID [facility] Last Admin: 07/10/18 22:33 Dose: 5,000 unit Dextrose/Sodium Chloride () 1,000 mls @ 100 mls/hr IV .Q10H [facility] Last Admin: 07/11/18 08:10 Dose: 100 mls/hr Famotidine 20 mg/ Sodium (Chloride) 10 mls @ 300 mls/hr IV Q24 [facility] Last Admin: 07/10/18 15:22 Dose: 300 mls/hr Insulin Human Lispro (Humalog Kwikpen (Bkc)) 0 unit SQ Q6 [facility]; Protocol Last Admin: 07/11/18 06:07 Dose: 1 units Levothyroxine Sodium (Synthroid) 25 mcg PO DAILY@0600 [facility] Last Admin: 07/11/18 06:32 Dose: Not Given Morphine Sulfate () 1 mg IV Q2H PRN PRN PRN Reason: SEVERE PAIN (6-10/10) Last Admin: 07/11/18 00:17 Dose: 1 mg Nitroglycerin (Nitrostat) 0.4 mg SUBLINGUAL Q5M PRN PRN Reason: CARDIAC/CHEST PAIN Nystatin (Mycostatin Powder) 1 applic TOPICAL BID [facility]; Protocol Last Admin: 07/10/18 22:35 Dose: 1 applicatio Ondansetron HCl (Zofran) 4 mg IV Q6H PRN PRN PRN Reason: NAUSEA/VOMITING Last Admin: 07/10/18 22:01 Dose: 4 mg Sodium Chloride () 5 - 15 ml IV UD PRN PRN Reason: SALINE FLUSH Last Admin: 07/11/18 00:17 Dose: 10 ml Medical Necessity - Tobacco Use Smoking Status: Never smoker Tobacco Use: Non-smoker Assessment/Plan All Active Problems (Last Reviewed 07/07/18 @ 14:24 by Carlitos Bowers MD) Small bowel obstruction, partial (Acute) Abscess of right hip (Acute) Methicillin resistant Staphylococcus aureus infection (Acute) Family history of skin cancer (Acute) Blister of left leg without infection (Acute) Hypotension (Acute) Probable sepsis (Acute) Infected pressure ulcer (Acute) Abdominal pain (Acute) Acute kidney injury (Acute) Septic shock (Acute) Pressure ulcer of sacral region, stage 3 (Acute) Scrotal ulcer (Acute) Complicated UTI (urinary tract infection) (Acute) Constipation (Acute) Pressure ulcer of perianal region (Resolved) Pressure ulcer of buttock (Resolved) UTI (urinary tract infection) (Acute) 1. Acute small bowel obstruction status post colostomy and ileostomy/dehydration/leukocytosis -Appreciate general surgery assistance -Continue with the NG tube for now, continue with IV Pepcid -Pain meds as needed -Continue with IV fluids and monitor renal function -Leukocytosis is resolved 2. 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 DM2/CKD 3/neuropathy -Currently n.p.o., will continue with insulin and Accu-Cheks -Blood glucose 186 -Renal function is at baseline 4. HTN -SBP is stable -Continue with his home medications DVT: Heparin Code Visit Inpatient E&M: 19240 Subs Hosp L2
[2018-07-11 08:42] VITALS: BP 137/62; PULSE 76; RESP 18; TEMP 37.1; O2SAT 96
--- NOTE | 2018-07-11 08:42 | PN_ITS ---
Patient Problems: Active and Suspected Problems (Last Reviewed 07/07/18 @ 14:24 by Carlitos Bowers MD) Small bowel obstruction, partial (Acute) Subjective: Feels better today after having the NG tube placed last evening. Abdominal pain is improving. Continues to have some air and fecal output in his ostomy Vitals/I&O's: Vital Signs Temp Pulse Resp BP Pulse Ox 98 F 79 16 117/57 L 97 07/11/18 02:50 07/11/18 02:50 07/11/18 02:50 07/11/18 02:50 07/11/18 02:50 Oxygen Delivery Method Room Air Weight: 212 lb 4.882 oz Body Mass Index (BMI) 25.2 Finger Stick Blood Glucose 160 Intake and Output for Last 24 Hours 07/09/18 07/10/18 07/11/18 23:59 23:59 23:59 Intake Total 2171 / 2171 2905 / 2905 1322 / 1322 Output Total 1900 / 1900 2110 / 2110 725 / 725 Balance 271 / 271 795 / 795 597 / 597 General: Alert, Oriented x3, Cooperative, No apparent distress, NG tube in place HEENT: Atraumatic, PERRLA, EOMI, Normocephalic Oral: Moist Mucosa Neck: Supple, No JVD Lungs: Clear to auscultation, Normal air movement, No rhonchi, No wheeze, No rales, Diminished Cardiovascular: Regular rate, Regular Rhythm, Normal S1, Normal S2, No murmurs Abdomen: Soft, Non Tender, Non-Distended, No Hepato-splenomegaly, colostomy and urostomy look okay Extremities: No edema, Capillary Refill Less than 3 Seconds Skin: Large buttock wound is healing well Neurological: Neuro grossly intact, Sensory exam intact to light touch and pain, - - 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 difficile DNA Amplification - Final Laboratory Results 07/10/18 11:33: POC Glucose 193 H 07/10/18 16:39: POC Glucose 233 H 07/11/18 00:01: POC Glucose 205 H 07/11/18 06:00: POC Glucose 198 H 07/11/18 06:20: WBC 7.1, RBC 2.90 L, Hgb 8.8 L, Hct 27.5 L, MCV 94.8 H, MCH 30.3, MCHC 32.0, RDW 15.7 H, RDW Differential 52.1 H, Plt Count 180, MPV 9.4, Immature Gran % (Auto) 0.100, Neut % (Auto) 52.9, Lymph % (Auto) 26.2, [place] % (Auto) 10.4 H, Eos % (Auto) 10.1 H, Baso % (Auto) 0.3, Absolute Neuts (auto) 3.8, Absolute Lymphs (auto) 1.87, Total Counted Not Reportable 07/11/18 06:20: Sodium 142, Potassium 3.0 L, Chloride 115 H, Carbon Dioxide 21.0, Anion Gap 6, BUN 29 H, Creatinine 0.99, Estim Creat Clear Calc 59.07, Est GFR (MDRD) Af Amer 95, Est GFR (MDRD) Non-Af 78, BUN/Creatinine Ratio 29.3 H, Glucose 186 H, Calcium 7.6 L Current Medications Acetaminophen (Tylenol) 650 mg PO Q6H PRN PRN PRN Reason: Mild Pain (1-3)/Temp > 100.7 F Alprazolam (Xanax) 0.5 mg PO QHS PRN PRN PRN Reason: SLEEP Carvedilol (Coreg) 25 mg PO BID [facility] Last Admin: 07/10/18 22:30 Dose: Not Given Dextrose (D50w Syringe) 0 gm IV X1 PRN; Protocol PRN Reason: Hypoglycemia Glucagon () 1 mg IM .X1 PRN PRN Reason: Hypoglycemia Heparin Sodium (Porcine) (Heparin Na) 5,000 unit SC BID [facility] Last Admin: 07/10/18 22:33 Dose: 5,000 unit Dextrose/Sodium Chloride () 1,000 mls @ 100 mls/hr IV .Q10H [facility] Last Admin: 07/11/18 08:10 Dose: 100 mls/hr Famotidine 20 mg/ Sodium (Chloride) 10 mls @ 300 mls/hr IV Q24 [facility] Last Admin: 07/10/18 15:22 Dose: 300 mls/hr Insulin Human Lispro (Humalog Kwikpen (Bkc)) 0 unit SQ Q6 [facility]; Protocol Last Admin: 07/11/18 06:07 Dose: 1 units Levothyroxine Sodium (Synthroid) 25 mcg PO DAILY@0600 [facility] Last Admin: 07/11/18 06:32 Dose: Not Given Morphine Sulfate () 1 mg IV Q2H PRN PRN PRN Reason: SEVERE PAIN (6-10/10) Last Admin: 07/11/18 00:17 Dose: 1 mg Nitroglycerin (Nitrostat) 0.4 mg SUBLINGUAL Q5M PRN PRN Reason: CARDIAC/CHEST PAIN Nystatin (Mycostatin Powder) 1 applic TOPICAL BID [facility]; Protocol Last Admin: 07/10/18 22:35 Dose: 1 applicatio Ondansetron HCl (Zofran) 4 mg IV Q6H PRN PRN PRN Reason: NAUSEA/VOMITING Last Admin: 07/10/18 22:01 Dose: 4 mg Sodium Chloride () 5 - 15 ml IV UD PRN PRN Reason: SALINE FLUSH Last Admin: 07/11/18 00:17 Dose: 10 ml Medical Necessity - Tobacco Use Smoking Status: Never smoker Tobacco Use: Non-smoker Assessment/Plan All Active Problems (Last Reviewed 07/07/18 @ 14:24 by Carlitos Bowers MD) Small bowel obstruction, partial (Acute) Abscess of right hip (Acute) Methicillin resistant Staphylococcus aureus infection (Acute) Family history of skin cancer (Acute) Blister of left leg without infection (Acute) Hypotension (Acute) Probable sepsis (Acute) Infected pressure ulcer (Acute) Abdominal pain (Acute) Acute kidney injury (Acute) Septic shock (Acute) Pressure ulcer of sacral region, stage 3 (Acute) Scrotal ulcer (Acute) Complicated UTI (urinary tract infection) (Acute) Constipation (Acute) Pressure ulcer of perianal region (Resolved) Pressure ulcer of buttock (Resolved) UTI (urinary tract infection) (Acute) 1. Acute small bowel obstruction status post colostomy and ileostomy/dehydration/leukocytosis -Appreciate general surgery assistance -Continue with the NG tube for now, continue with IV Pepcid -Pain meds as needed -Continue with IV fluids and monitor renal function -Leukocytosis is resolved 2. 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 DM2/CKD 3/neuropathy -Currently n.p.o., will continue with insulin and Accu-Cheks -Blood glucose 186 -Renal function is at baseline 4. HTN -SBP is stable -Continue with his home medications DVT: Heparin Code Visit Inpatient E&M: 21251 Subs Hosp L2
[2018-07-11 08:47] VITALS: PULSE 80
--- NOTE | 2018-07-11 09:19 | PCM.PN.SRG ---
Patient Problems: Active and Suspected Problems (Last Reviewed 07/07/18 @ 14:24 by Carlitos Bowers MD) Small bowel obstruction, partial (Acute) Subjective: Looks remarkably good this morning. Still complaining of generalized abdominal pain. Objective: Abdomen is entirely soft no rebound no guarding no peritoneal signs - Physical Exam Vital Signs Temp Pulse Resp BP Pulse Ox 98.7 F 76 18 137/62 H 96 07/11/18 08:42 07/11/18 08:42 07/11/18 08:42 07/11/18 08:42 07/11/18 08:42 Oxygen Delivery Method Room Air Weight: 212 lb 4.882 oz Body Mass Index (BMI) 25.2 Finger Stick Blood Glucose 160 Intake and Output for Last 24 Hours 07/09/18 07/10/18 07/11/18 23:59 23:59 23:59 Intake Total 2171 / 2171 2905 / 2905 1322 / 1322 Output Total 1900 / 1900 2110 / 2110 725 / 725 Balance 271 / 271 795 / 795 597 / 597 Microbiology Past 72 Hours 07/10/18 16:55 Gastric Occult Blood - Final Gastric Fluid/Contents 07/08/18 09:44 C. difficile DNA Amplification - Final Stool Laboratory Tests Past 24 Hrs 07/11/18 07/11/18 06:20 06:20 WBC 7.1 RBC 2.90 L Hgb 8.8 L Hct 27.5 L MCV 94.8 H MCH 30.3 MCHC 32.0 RDW 15.7 H RDW Differential 52.1 H Plt Count 180 MPV 9.4 Immature Gran % (Auto) 0.100 Neut % (Auto) 52.9 Lymph % (Auto) 26.2 [place] % (Auto) 10.4 H Eos % (Auto) 10.1 H Baso % (Auto) 0.3 Absolute Neuts (auto) 3.8 Absolute Lymphs (auto) 1.87 Total Counted Not Reportable Sodium 142 Potassium 3.0 L Chloride 115 H Carbon Dioxide 21.0 Anion Gap 6 BUN 29 H Creatinine 0.99 Estim Creat Clear Calc 59.07 Est GFR (MDRD) Af Amer 95 Est GFR (MDRD) Non-Af 78 BUN/Creatinine Ratio 29.3 H Glucose 186 H Calcium 7.6 L POC Glucose 07/11/18 07/11/18 07/10/18 06:00 00:01 16:39 POC Glucose 198 H 205 H 233 H 07/10/18 11:33 POC Glucose 193 H Medical Necessity - Tobacco Use Smoking Status: Never smoker Tobacco Use: Non-smoker Assessment/Plan All Active Problems (Last Reviewed 07/07/18 @ 14:24 by Carlitos Bowers MD) Small bowel obstruction, partial (Acute) Abscess of right hip (Acute) Methicillin resistant Staphylococcus aureus infection (Acute) Family history of skin cancer (Acute) Blister of left leg without infection (Acute) Hypotension (Acute) Probable sepsis (Acute) Infected pressure ulcer (Acute) Abdominal pain (Acute) Acute kidney injury (Acute) Septic shock (Acute) Pressure ulcer of sacral region, stage 3 (Acute) Scrotal ulcer (Acute) Complicated UTI (urinary tract infection) (Acute) Constipation (Acute) Pressure ulcer of perianal region (Resolved) Pressure ulcer of buttock (Resolved) UTI (urinary tract infection) (Acute) Recommend leaving NG tube in for today. Obtain some abdominal films tomorrow to see how things look.
[2018-07-11] MEDS: Nystatin Powder 15gm Bottle 1 APPLIC TOPICAL ×2 (09:32→21:44)
[2018-07-11] MEDS: Carvedilol 25 MG Tablet PO ×2 (09:33→22:00)
[2018-07-11] MEDS: Heparin Injection (Vial) 5,000 UNIT/ML VIAL 5000 UNIT SC ×2 (09:33→21:42)
[2018-07-11] MEDS: Potassium Chloride 10mEq/100mL 10 MEQ/100 ML IV.SOLN. 100 MEQ IV BOLUS ×4 (11:02→15:22)
[2018-07-11 12:36] LABS: Bedside Glucose 195 mg/dL (70-110)
[2018-07-11 15:14] VITALS: PULSE 90
[2018-07-11 15:23] VITALS: BP 148/66; PULSE 71; RESP 18; TEMP 37.1; O2SAT 99
[2018-07-11 17:06] LABS: Bedside Glucose 175 mg/dL (70-110)
[2018-07-11 21:44] VITALS: BP 153/65; PULSE 72; RESP 16; TEMP 36.9; O2SAT 99
[2018-07-12] MEDS: Insulin Lispro 100 UNIT/ML INSULN.PEN SQ ×3 (00:10→13:42)
[2018-07-12 00:21] LABS: Bedside Glucose 168 mg/dL (70-110)
[2018-07-12] MEDS: Dext 5%-0.45% NS 1,000 ML 100 ML IV ×2 (03:39→19:40)
[2018-07-12 03:49] VITALS: BP 155/69; PULSE 74; RESP 18; TEMP 37.1; O2SAT 97
[2018-07-12] MEDS: Levothyroxine 25 MCG TABLET PO (06:12)
[2018-07-12] MEDS: Acetaminophen 325 MG Tablet 650 MG PO (06:29)
[2018-07-12 06:31] LABS: Bedside Glucose 180 mg/dL (70-110)
[2018-07-12 07:44] LABS: Absolute Lymphocyte Count 1.46 X10^3/ul (0.83-4.51); Basophil# 0.02 X10^3/uL; Basophil% 0.3 % (0-1); Eosinophil# 0.94 X10^3/uL; Eosinophils% 15.7 % (0-5); Hematocrit 26.4 % (40-54); Hemoglobin 8.8 g/dl (13.0-16.5); Lymphocyte # 1.46 X10^3/ul (4.0); Lymphocyte % 24.5 % (19-41); Mean Corp Hgb Conc 33.3 g/gl (32-36); Mean Corpuscular Hgb 31.1 pg (27.0-32.0); Mean Corpuscular Volume 93.3 fL (80-94); Monocyte# 0.52 X10^3/uL; Monocyte% 8.7 % (0-10); Neutrophil # 3.02 X10^3/uL (2.7-7.7); Neutrophil % 50.6 % (47-70); Platelet Count 150 K/mm3 (150-450); RBC Distribution Width CV 15.7 % (11.6-14.6); RBC Distribution Width SD 53.6 fl (35.1-43.9); Red Blood Count 2.83 M/mm3 (4.6-6.2)
[2018-07-12 07:49] LABS: POSITIVE COUNT NO; POSITIVE DIFFERENTIAL NO; POSITIVE MORPHOLOGY NO
[2018-07-12 07:58] LABS: Anion Gap 11 (5-15); BUN 21 mg/dL (7-18); BUN/Creat Ratio 24.4 RATIO (10-20); Calcium,Total 7.7 mg/dL (8.5-10.1); Chloride 112 mmol/L (98-107); Creatinine, Serum 0.86 mg/dL (0.70-1.30); EST Glomerular Filtration Rate 92 mL/min (>60); Est Glom Filt Rate - Afr Amer 112 mL/min (>60); Glucose 179 mg/dL (74-106); Magnesium 1.3 mg/dL (1.6-2.6); Phosphorus 1.8 mg/dL (2.5-4.9); Potassium 3.3 mmol/L (3.5-5.1); Sodium Level 143 mmol/L (136-145)
--- NOTE | 2018-07-12 10:14 | RAD_ITS ---
STUDY: X-RAY - ABDOMEN/PELVIS REASON FOR EXAM: Male, 72 years old. Abdominal pain TECHNIQUE: Supine COMPARISON: 07/10/2018 FINDINGS: Enteric tube has been further advanced into the stomach with decompression of the air-filled stomach seen on the prior study. Mildly prominent loops of small bowel diffusely although overall diminished gaseous distention. Left lower quadrant ostomy noted. There is no demonstrated free abdominal air. The visualized liver, spleen and kidneys are grossly normal in size and morphology. Normal soft tissue structures. Right hip disarticulation noted. Chronic changes of the pelvis and left hip stable. RAD/Abdomen Single View (Portable) IMPRESSION: 1. Satisfactory position of enteric tube in stomach, now decompressed. 2. Decreased gaseous distention of small bowel/ileus. Electronically Signed: Truman Perez MD at 13:05 EDT , Service support ,
[2018-07-12] MEDS: Heparin Injection (Vial) 5,000 UNIT/ML VIAL 5000 UNIT SC ×2 (10:51→22:53)
[2018-07-12] MEDS: Carvedilol 25 MG Tablet PO (10:51)
[2018-07-12] MEDS: Nystatin Powder 15gm Bottle 1 APPLIC TOPICAL ×2 (10:51→22:53)
[2018-07-12 10:55] VITALS: BP 149/70; PULSE 73; RESP 18; TEMP 36.8; O2SAT 99
--- NOTE | 2018-07-12 11:17 | PN.SURG_ITS ---
Patient Problems: Active and Suspected Problems (Last Reviewed 07/07/18 @ 14:24 by Carlitos Bowers MD) Small bowel obstruction, partial (Acute) Subjective: Complaint of burning pain in his stomach. States that he has had significant amount of air coming out into his stoma. Objective: Abdomen is nondistended and soft. There is no rebound guarding or peritoneal signs identified - Physical Exam Vital Signs Temp Pulse Resp BP Pulse Ox 98.3 F 73 18 149/70 H 99 07/12/18 10:55 07/12/18 10:55 07/12/18 10:55 07/12/18 10:55 07/12/18 10:55 Oxygen Delivery Method Room Air Weight: 205 lb 4.006 oz Body Mass Index (BMI) 25.2 Finger Stick Blood Glucose 160 Intake and Output for Last 24 Hours 07/10/18 07/11/18 07/12/18 23:59 23:59 23:59 Intake Total 2905 / 2905 3060 / 3060 1268 / 1268 Output Total 2110 / 2110 1675 / 1675 750 / 750 Balance 795 / 795 1385 / 1385 518 / 518 Microbiology Past 72 Hours 07/10/18 16:55 Gastric Occult Blood - Final Gastric Fluid/Contents Laboratory Tests Past 24 Hrs 07/12/18 07/12/18 06:18 06:18 WBC 6.0 RBC 2.83 L Hgb 8.8 L Hct 26.4 L MCV 93.3 MCH 31.1 MCHC 33.3 RDW 15.7 H RDW Differential 53.6 H Plt Count 150 MPV 9.0 Immature Gran % (Auto) 0.200 Neut % (Auto) 50.6 Lymph % (Auto) 24.5 [place] % (Auto) 8.7 Eos % (Auto) 15.7 H Baso % (Auto) 0.3 Absolute Neuts (auto) 3.0 Absolute Lymphs (auto) 1.46 Total Counted Not Reportable Sodium 143 Potassium 3.3 L Chloride 112 H Carbon Dioxide 20.0 L Anion Gap 11 BUN 21 H Creatinine 0.86 Estim Creat Clear Calc 68.00 Est GFR (MDRD) Af Amer 112 Est GFR (MDRD) Non-Af 92 BUN/Creatinine Ratio 24.4 H Glucose 179 H Calcium 7.7 L Phosphorus 1.8 L Magnesium 1.3 L POC Glucose 07/12/18 07/12/18 07/11/18 06:09 00:08 16:56 POC Glucose 180 H 168 H 175 H 07/11/18 12:18 POC Glucose 195 H Medical Necessity - Tobacco Use Smoking Status: Never smoker Tobacco Use: Non-smoker Assessment/Plan All Active Problems (Last Reviewed 07/07/18 @ 14:24 by Carlitos Bowers MD) Small bowel obstruction, partial (Acute) Abscess of right hip (Acute) Methicillin resistant Staphylococcus aureus infection (Acute) Family history of skin cancer (Acute) Blister of left leg without infection (Acute) Hypotension (Acute) Probable sepsis (Acute) Infected pressure ulcer (Acute) Abdominal pain (Acute) Acute kidney injury (Acute) Septic shock (Acute) Pressure ulcer of sacral region, stage 3 (Acute) Scrotal ulcer (Acute) Complicated UTI (urinary tract infection) (Acute) Constipation (Acute) Pressure ulcer of perianal region (Resolved) Pressure ulcer of buttock (Resolved) UTI (urinary tract infection) (Acute) Reviewed the KUB really was not a very good film. Would more likely leave the NG tube and today have discussed with medicine and going to switch him over to Protonix would recommend putting Carafate down his NG tube as well. Would leave NG tube in for today. We will hold off on any obvious scoping at this time.
--- NOTE | 2018-07-12 11:33 | PN_ITS ---
Patient Problems: Active and Suspected Problems (Last Reviewed 07/07/18 @ 14:24 by Carlitos Bowers MD) Small bowel obstruction, partial (Acute) Subjective: He had to have the NG tube reinserted yesterday and feels better today, is continued to have output through his NG and states that his abdominal pain is much better than when he came in. He does describe his abdominal pain is burning. They are continuing up to burp his ostomy bag and he is having some ostomy output though not much Vitals/I&O's: Vital Signs Temp Pulse Resp BP Pulse Ox 98.3 F 73 18 149/70 H 99 07/12/18 10:55 07/12/18 10:55 07/12/18 10:55 07/12/18 10:55 07/12/18 10:55 Oxygen Delivery Method Room Air Weight: 205 lb 4.006 oz Body Mass Index (BMI) 25.2 Finger Stick Blood Glucose 160 Intake and Output for Last 24 Hours 07/10/18 07/11/18 07/12/18 23:59 23:59 23:59 Intake Total 2905 / 2905 3060 / 3060 1298 / 1298 Output Total 2110 / 2110 1675 / 1675 750 / 750 Balance 795 / 795 1385 / 1385 548 / 548 General: Alert, Oriented x3, Cooperative, No apparent distress, NG tube in place HEENT: Atraumatic, PERRLA, EOMI, Normocephalic Oral: Moist Mucosa Neck: Supple, No JVD Lungs: Clear to auscultation, Normal air movement, No rhonchi, No wheeze, No rales, Diminished Cardiovascular: Regular rate, Regular Rhythm, Normal S1, Normal S2, No murmurs Abdomen: Soft, Non Tender, Non-Distended, No Hepato-splenomegaly, colostomy and urostomy look okay Extremities: No edema, Capillary Refill Less than 3 Seconds Skin: Large buttock wound is healing well Neurological: Neuro grossly intact, Sensory exam intact to light touch and pain, - - 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 Psych/Mental Status: Normal Affect, Appropriate Microbiology Past 72 Hours 07/10/18 16:55 Gastric Fluid/Contents Gastric Occult Blood - Final Laboratory Results 07/11/18 12:18: POC Glucose 195 H 07/11/18 16:56: POC Glucose 175 H 07/12/18 00:08: POC Glucose 168 H 07/12/18 06:09: POC Glucose 180 H 07/12/18 06:18: WBC 6.0, RBC 2.83 L, Hgb 8.8 L, Hct 26.4 L, MCV 93.3, MCH 31.1, MCHC 33.3, RDW 15.7 H, RDW Differential 53.6 H, Plt Count 150, MPV 9.0, Immature Gran % (Auto) 0.200, Neut % (Auto) 50.6, Lymph % (Auto) 24.5, [place] % (Auto) 8.7, Eos % (Auto) 15.7 H, Baso % (Auto) 0.3, Absolute Neuts (auto) 3.0, Absolute Lymphs (auto) 1.46, Total Counted Not Reportable 07/12/18 06:18: Sodium 143, Potassium 3.3 L, Chloride 112 H, Carbon Dioxide 20.0 L, Anion Gap 11, BUN 21 H, Creatinine 0.86, Estim Creat Clear Calc 68.00, Est GFR (MDRD) Af Amer 112, Est GFR (MDRD) Non-Af 92, BUN/Creatinine Ratio 24.4 H, Glucose 179 H, Calcium 7.7 L, Phosphorus 1.8 L, Magnesium 1.3 L Current Medications Acetaminophen (Tylenol) 650 mg PO Q6H PRN PRN PRN Reason: Mild Pain (1-3)/Temp > 100.7 F Last Admin: 07/12/18 06:29 Dose: 650 mg Alprazolam (Xanax) 0.5 mg PO QHS PRN PRN PRN Reason: SLEEP Carvedilol (Coreg) 25 mg PO BID [facility] Last Admin: 07/12/18 10:51 Dose: 25 mg Dextrose (D50w Syringe) 0 gm IV X1 PRN; Protocol PRN Reason: Hypoglycemia Glucagon () 1 mg IM .X1 PRN PRN Reason: Hypoglycemia Heparin Sodium (Porcine) (Heparin Na) 5,000 unit SC BID [facility] Last Admin: 07/12/18 10:51 Dose: 5,000 unit Dextrose/Sodium Chloride () 1,000 mls @ 100 mls/hr IV .Q10H [facility] Last Admin: 07/12/18 03:39 Dose: 100 mls/hr Pantoprazole Sodium 40 mg/ (Sodium Chloride) 110 mls @ 330 mls/hr IV Q24 [facility] Insulin Human Lispro (Humalog Kwikpen (Bkc)) 0 unit SQ Q6 [facility]; Protocol Last Admin: 07/12/18 06:12 Dose: 1 units Levothyroxine Sodium (Synthroid) 25 mcg PO DAILY@0600 [facility] Last Admin: 07/12/18 06:12 Dose: 25 mcg Morphine Sulfate () 1 mg IV Q2H PRN PRN PRN Reason: SEVERE PAIN (6-11/19) Last Admin: 07/11/18 00:17 Dose: 1 mg Nitroglycerin (Nitrostat) 0.4 mg SUBLINGUAL Q5M PRN PRN Reason: CARDIAC/CHEST PAIN Nystatin (Mycostatin Powder) 1 applic TOPICAL BID [facility]; Protocol Last Admin: 07/12/18 10:51 Dose: 1 applicatio Ondansetron HCl (Zofran) 4 mg IV Q6H PRN PRN PRN Reason: NAUSEA/VOMITING Last Admin: 07/10/18 22:01 Dose: 4 mg Sodium Chloride () 5 - 15 ml IV UD PRN PRN Reason: SALINE FLUSH Last Admin: 07/11/18 00:17 Dose: 10 ml Medical Necessity - Tobacco Use Smoking Status: Never smoker Tobacco Use: Non-smoker Assessment/Plan All Active Problems (Last Reviewed 07/07/18 @ 14:24 by Carlitos Bowers MD) Small bowel obstruction, partial (Acute) Abscess of right hip (Acute) Methicillin resistant Staphylococcus aureus infection (Acute) Family history of skin cancer (Acute) Blister of left leg without infection (Acute) Hypotension (Acute) Probable sepsis (Acute) Infected pressure ulcer (Acute) Abdominal pain (Acute) Acute kidney injury (Acute) Septic shock (Acute) Pressure ulcer of sacral region, stage 3 (Acute) Scrotal ulcer (Acute) Complicated UTI (urinary tract infection) (Acute) Constipation (Acute) Pressure ulcer of perianal region (Resolved) Pressure ulcer of buttock (Resolved) UTI (urinary tract infection) (Acute) 1. Acute small bowel obstruction status post colostomy and ileostomy/d ehydration/leukocytosis/hypophosphatemia/hypomagnesemia -Appreciate general surgery assistance -Continue with the NG tube for now, continue with IV Protonix -General surgery is obtaining a KUB to evaluate for possible removal of the NG tube and also thinks that there may be a necessity for doing an EGD to evaluate for ulcers -Pain meds as needed -Continue with IV fluids and monitor renal function -Leukocytosis is resolved -We will replace his electrolytes appropriately 2. 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 DM2/CKD 3/neuropathy -Currently n.p.o., will continue with insulin and Accu-Cheks -Blood glucose 186 -Renal function is at baseline 4. HTN -SBP is stable -Continue with his home medications DVT: Heparin Code Visit Inpatient E&M: 15224 Subs Hosp L2
[2018-07-12] MEDS: Magnesium Sulfate 4gm/100mL 4 GM/100 ML IV.SOLN. IV (13:26)
[2018-07-12 13:51] LABS: Bedside Glucose 167 mg/dL (70-110)
[2018-07-12 15:48] VITALS: BP 154/71; PULSE 75; RESP 16; TEMP 36.7; O2SAT 100
[2018-07-12 18:30] LABS: Bedside Glucose 131 mg/dL (70-110)
[2018-07-12 20:14] VITALS: BP 146/70; PULSE 81; RESP 18; TEMP 36.8; O2SAT 98
[2018-07-12] MEDS: Sucralfate 1 GM Tablet NG (22:50)
[2018-07-12] MEDS: ALPRAZolam 0.5 MG Tablet NG (22:51)
[2018-07-12] MEDS: Carvedilol 25 MG Tablet NG (22:51)
[2018-07-12 23:06] LABS: Bedside Glucose 144 mg/dL (70-110)
[2018-07-13 02:15] VITALS: BP 139/61; PULSE 79; RESP 16; TEMP 37.1; O2SAT 98
[2018-07-13] MEDS: Dext 5%-0.45% NS 1,000 ML 100 ML IV ×2 (05:43→17:01)
[2018-07-13] MEDS: Levothyroxine 25 MCG TABLET NG (05:50)
[2018-07-13 06:06] LABS: Bedside Glucose 151 mg/dL (70-110)
[2018-07-13 06:36] LABS: Anion Gap 9 (5-15); BUN 14 mg/dL (7-18); BUN/Creat Ratio 16.9 RATIO (10-20); Calcium,Total 7.7 mg/dL (8.5-10.1); Chloride 114 mmol/L (98-107); Creatinine, Serum 0.83 mg/dL (0.70-1.30); EST Glomerular Filtration Rate 96 mL/min (>60); Est Glom Filt Rate - Afr Amer 116 mL/min (>60); Estimated Creatinine Clearance 70.46 ml/min; Glucose 171 mg/dL (74-106); Magnesium 2.1 mg/dL (1.6-2.6); Phosphorus 3.1 mg/dL (2.5-4.9); Potassium 3.4 mmol/L (3.5-5.1); Sodium Level 142 mmol/L (136-145)
[2018-07-13] MEDS: Sucralfate 1 GM Tablet NG (06:43)
[2018-07-13 06:58] LABS: Absolute Lymphocyte Count 1.52 X10^3/ul (0.83-4.51); Basophil# 0.03 X10^3/uL; Basophil% 0.5 % (0-1); Eosinophil# 0.99 X10^3/uL; Eosinophils% 15.8 % (0-5); Hematocrit 28.4 % (40-54); Hemoglobin 9.2 g/dl (13.0-16.5); Lymphocyte # 1.52 X10^3/ul (4.0); Lymphocyte % 24.3 % (19-41); Mean Corp Hgb Conc 32.4 g/gl (32-36); Mean Corpuscular Hgb 30.4 pg (27.0-32.0); Mean Corpuscular Volume 93.7 fL (80-94); Mean Platelet Vol. 9.3 fl (6.2-12.0); Monocyte# 0.66 X10^3/uL; Monocyte% 10.6 % (0-10); Neutrophil # 3.04 X10^3/uL (2.7-7.7); Neutrophil % 48.6 % (47-70); Platelet Count 168 K/mm3 (150-450); RBC Distribution Width CV 15.3 % (11.6-14.6); RBC Distribution Width SD 50.6 fl (35.1-43.9); Red Blood Count 3.03 M/mm3 (4.6-6.2); White Blood Count 6.3 K/mm3 (4.4-11.0)
[2018-07-13 06:59] LABS: POSITIVE COUNT NO; POSITIVE DIFFERENTIAL NO; POSITIVE MORPHOLOGY NO
[2018-07-13 09:02] VITALS: BP 153/67; PULSE 82; RESP 16; TEMP 36.7; O2SAT 98
[2018-07-13] MEDS: Carvedilol 25 MG Tablet NG ×2 (09:07→21:16)
[2018-07-13] MEDS: Pantoprazole Sodium 40 MG Tablet PO (09:08)
[2018-07-13] MEDS: Heparin Injection (Vial) 5,000 UNIT/ML VIAL 5000 UNIT SC ×2 (09:08→21:16)
[2018-07-13] MEDS: Nystatin Powder 15gm Bottle 1 APPLIC TOPICAL ×2 (09:08→21:15)
--- NOTE | 2018-07-13 09:15 | PCM.PN.SRG ---
Patient Problems: Active and Suspected Problems (Last Reviewed 07/07/18 @ 14:24 by Carlitos Bowers MD) Small bowel obstruction, partial (Acute) Subjective: Patient evaluated resting comfortably in bed. He denies nausea. He notes the burning sensation in the epigastric region has improved, however not completely gone. - Physical Exam General: Alert, Oriented x3, Cooperative HEENT: - - Ng tube intact- with bilious material output into the canister. Abdomen: Soft, Non Tender, Non-Distended, Hypoactive Bowel Sounds, - - Colostomy- with brown liquidy stool. Air noted within the bag. Urostomy intact with light yellowish urine noted. Vital Signs Temp Pulse Resp BP Pulse Ox 98.1 F 82 16 153/67 H 98 07/13/18 09:02 07/13/18 09:02 07/13/18 09:02 07/13/18 09:02 07/13/18 09:02 Oxygen Delivery Method Room Air Weight: 212 lb 4.882 oz Body Mass Index (BMI) 25.2 Finger Stick Blood Glucose 160 Intake and Output for Last 24 Hours 07/11/18 07/12/18 07/13/18 23:59 23:59 23:59 Intake Total 3060 / 3060 2637 / 2637 1518 / 1518 Output Total 1675 / 1675 1525 / 1525 1200 / 1200 Balance 1385 / 1385 1112 / 1112 318 / 318 Microbiology Past 72 Hours 07/10/18 16:55 Gastric Occult Blood - Final Gastric Fluid/Contents Laboratory Tests Past 24 Hrs 07/13/18 07/13/18 05:34 05:34 WBC 6.3 RBC 3.03 L Hgb 9.2 L Hct 28.4 L MCV 93.7 MCH 30.4 MCHC 32.4 RDW 15.3 H RDW Differential 50.6 H Plt Count 168 MPV 9.3 Immature Gran % (Auto) 0.200 Neut % (Auto) 48.6 Lymph % (Auto) 24.3 [place] % (Auto) 10.6 H Eos % (Auto) 15.8 H Baso % (Auto) 0.5 Absolute Neuts (auto) 3.0 Absolute Lymphs (auto) 1.52 Total Counted Not Reportable Sodium 142 Potassium 3.4 L Chloride 114 H Carbon Dioxide 19.0 L Anion Gap 9 BUN 14 Creatinine 0.83 Estim Creat Clear Calc 70.46 Est GFR (MDRD) Af Amer 116 Est GFR (MDRD) Non-Af 96 BUN/Creatinine Ratio 16.9 Glucose 171 H Calcium 7.7 L Phosphorus 3.1 Magnesium 2.1 POC Glucose 07/13/18 07/12/18 07/12/18 05:49 22:56 18:25 POC Glucose 151 H 144 H 131 H 07/12/18 13:33 POC Glucose 167 H Medical Necessity - Tobacco Use Smoking Status: Never smoker Tobacco Use: Non-smoker Assessment/Plan All Active Problems (Last Reviewed 07/07/18 @ 14:24 by Carlitos Bowers MD) Small bowel obstruction, partial (Acute) Abscess of right hip (Acute) Methicillin resistant Staphylococcus aureus infection (Acute) Family history of skin cancer (Acute) Blister of left leg without infection (Acute) Hypotension (Acute) Probable sepsis (Acute) Infected pressure ulcer (Acute) Abdominal pain (Acute) Acute kidney injury (Acute) Septic shock (Acute) Pressure ulcer of sacral region, stage 3 (Acute) Scrotal ulcer (Acute) Complicated UTI (urinary tract infection) (Acute) Constipation (Acute) Pressure ulcer of perianal region (Resolved) Pressure ulcer of buttock (Resolved) UTI (urinary tract infection) (Acute) I am following this patient in conjunction with Dr. Bowers. Impression: small bowel obstruction. Labs reviewed D/C NG tube May have clear liquids. Continue IV hydration We will continue to monitor this patient Will continue to hold off on scopes. If epigastric discomfort continues, Dr. Bowers may decide to perform an upper scope. Code Visit Inpatient E&M: 63993 [facility] Hosp L1
--- NOTE | 2018-07-13 09:45 | PCM.PN.HOSP ---
Patient Problems: Active and Suspected Problems (Last Reviewed 07/07/18 @ 14:24 by Carlitos Bowers MD) Small bowel obstruction, partial (Acute) Subjective: Patient seen and examined. He has no complaints. NG tube is still in place and draining. Small bowel movement noted in colostomy bag. Patient states he is passing gas. He denies any fever or chills and denies abdominal pain now. Review of systems otherwise negative. Labs and vitals reviewed. Vitals/I&O's: Vital Signs Temp Pulse Resp BP Pulse Ox 98.1 F 82 16 153/67 H 98 07/13/18 09:02 07/13/18 09:02 07/13/18 09:02 07/13/18 09:02 07/13/18 09:02 Oxygen Delivery Method Room Air Weight: 212 lb 4.882 oz Body Mass Index (BMI) 25.2 Finger Stick Blood Glucose 160 Intake and Output for Last 24 Hours 07/11/18 07/12/18 07/13/18 23:59 23:59 23:59 Intake Total 3060 / 3060 2637 / 2637 1518 / 1518 Output Total 1675 / 1675 1525 / 1525 1200 / 1200 Balance 1385 / 1385 1112 / 1112 318 / 318 General: Alert, Oriented x3, Cooperative, No apparent distress HEENT: Atraumatic, PERRLA, EOMI, Normocephalic, - - NG tube in place draining bilious fluid Oral: Dry Mucosa Neck: Supple, No JVD, Negative Carotid Bruits Lungs: Clear to auscultation, Normal air movement, No rhonchi, No wheeze, No rales Cardiovascular: Regular rate, Regular Rhythm, Normal S1, Normal S2, No murmurs Abdomen: Bowel Sounds Present, Soft, Non Tender, Hypoactive Bowel Sounds, - - colostomy bag contains scanty stool; ileostomy bag has some mucous in it Skin: No rashes, No breakdown Musculoskeletal: - - right AKA; paraplegic Neurological: Cranial nerves II-XII grossly intact Psych/Mental Status: Normal Affect, Appropriate, Alert and oriented to time, place, person, mood and affect Microbiology Past 72 Hours 07/10/18 16:55 Gastric Fluid/Contents Gastric Occult Blood - Final Laboratory Results 07/12/18 13:33: POC Glucose 167 H 07/12/18 18:25: POC Glucose 131 H 07/12/18 22:56: POC Glucose 144 H 07/13/18 05:34: WBC 6.3, RBC 3.03 L, Hgb 9.2 L, Hct 28.4 L, MCV 93.7, MCH 30.4, MCHC 32.4, RDW 15.3 H, RDW Differential 50.6 H, Plt Count 168, MPV 9.3, Immature Gran % (Auto) 0.200, Neut % (Auto) 48.6, Lymph % (Auto) 24.3, [place] % (Auto) 10.6 H, Eos % (Auto) 15.8 H, Baso % (Auto) 0.5, Absolute Neuts (auto) 3.0, Absolute Lymphs (auto) 1.52, Total Counted Not Reportable 07/13/18 05:34: Sodium 142, Potassium 3.4 L, Chloride 114 H, Carbon Dioxide 19.0 L, Anion Gap 9, BUN 14, Creatinine 0.83, Estim Creat Clear Calc 70.46, Est GFR (MDRD) Af Amer 116, Est GFR (MDRD) Non-Af 96, BUN/Creatinine Ratio 16.9, Glucose 171 H, Calcium 7.7 L, Phosphorus 3.1, Magnesium 2.1 07/13/18 05:49: POC Glucose 151 H Diagnostic Data Abdomen/Pelvis CT 07/07/18 11:53 IMPRESSION: Small gallstones. Findings suggestive of proximal small bowel obstruction. Postoperative changes seen in the region of the right hip joint with nonvisualization of the femur and the overlying soft tissue induration and ulceration. Electronically Signed: Hayder Cisneros, at 13:05 EDT , Service support , KUB X-Ray 07/12/18 10:14 IMPRESSION: 1. Satisfactory position of enteric tube in stomach, now decompressed. 2. Decreased gaseous distention of small bowel/ileus. Electronically Signed: Truman Perez MD at 13:05 EDT , Service support , Current Medications Acetaminophen (Tylenol Liquid) 650 mg NG Q6H PRN PRN PRN Reason: Mild Pain (1-3)/Temp > 100.7 F Alprazolam (Xanax) 0.5 mg NG QHS PRN PRN PRN Reason: SLEEP Last Admin: 07/12/18 22:51 Dose: 0.5 mg Carvedilol (Coreg) 25 mg NG BID [facility] Last Admin: 07/13/18 09:07 Dose: 25 mg Dextrose (D50w Syringe) 0 gm IV X1 PRN; Protocol PRN Reason: Hypoglycemia Glucagon () 1 mg IM .X1 PRN PRN Reason: Hypoglycemia Heparin Sodium (Porcine) (Heparin Na) 5,000 unit SC BID [facility] Last Admin: 07/13/18 09:08 Dose: 5,000 unit Dextrose/Sodium Chloride () 1,000 mls @ 100 mls/hr IV .Q10H [facility] Last Admin: 07/13/18 05:43 Dose: 100 mls/hr Insulin Human Lispro (Humalog Kwikpen (Bkc)) 0 unit SQ Q6 [facility]; Protocol Last Admin: 07/13/18 06:05 Dose: Not Given Levothyroxine Sodium (Synthroid) 25 mcg NG DAILY@0600 [facility] Last Admin: 07/13/18 05:50 Dose: 25 mcg Morphine Sulfate () 1 mg IV Q2H PRN PRN PRN Reason: SEVERE PAIN (6-10/10) Last Admin: 07/11/18 00:17 Dose: 1 mg Nitroglycerin (Nitrostat) 0.4 mg SUBLINGUAL Q5M PRN PRN Reason: CARDIAC/CHEST PAIN Nystatin (Mycostatin Powder) 1 applic TOPICAL BID [facility]; Protocol Last Admin: 07/13/18 09:08 Dose: 1 applicatio Ondansetron HCl (Zofran) 4 mg IV Q6H PRN PRN PRN Reason: NAUSEA/VOMITING Last Admin: 07/10/18 22:01 Dose: 4 mg Pantoprazole Sodium (Protonix) 40 mg PO DAILY [facility] Last Admin: 07/13/18 09:08 Dose: 40 mg Sodium Chloride () 5 - 15 ml IV UD PRN PRN Reason: SALINE FLUSH Last Admin: 07/11/18 00:17 Dose: 10 ml Sucralfate (Carafate) 1 gm PO 1HR_ACHS [facility] Medical Necessity - Tobacco Use Smoking Status: Never smoker Tobacco Use: Non-smoker Assessment/Plan All Active Problems (Last Reviewed 07/07/18 @ 14:24 by Carlitos Bowers MD) Small bowel obstruction, partial (Acute) Abscess of right hip (Acute) Methicillin resistant Staphylococcus aureus infection (Acute) Family history of skin cancer (Acute) Blister of left leg without infection (Acute) Hypotension (Acute) Probable sepsis (Acute) Infected pressure ulcer (Acute) Abdominal pain (Acute) Acute kidney injury (Acute) Septic shock (Acute) Pressure ulcer of sacral region, stage 3 (Acute) Scrotal ulcer (Acute) Complicated UTI (urinary tract infection) (Acute) Constipation (Acute) Pressure ulcer of perianal region (Resolved) Pressure ulcer of buttock (Resolved) UTI (urinary tract infection) (Acute) 1. 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 Has colostomy and ileostomy in place has NG tube in place, which is still draining some bilious fluid having small bowel movement in colostomy bag general surgery on board patient currently on clear sips continue IVF; continue IV protonix may need EGD per general surgery due to concerns for possible ulcers 2. Hypokalemia: potassium is 3.4 today. Will replace and monitor 3. HYpomagnesemia and hypophosphatemia: resolved 4. Right hip osteomyelitis s/o I&D wound care on board wound cultures E fecalis and VRE as well as MRSA 5. TYpe 2 diabetes mellitus: currently on clear sips. ISS. Accuchecks ACHS 6. Hypertension: fairly controlled: On carvedilol 7. Hypothyroidism: on synthroid DVT prophylaxis: heparin Code Visit Inpatient E&M: 26040 Subs Hosp L3
--- NOTE | 2018-07-13 09:56 | PN_ITS ---
Patient Problems: Active and Suspected Problems (Last Reviewed 07/07/18 @ 14:24 by Carlitos Bowers MD) Small bowel obstruction, partial (Acute) Subjective: Patient seen and examined. He has no complaints. NG tube is still in place and draining. Small bowel movement noted in colostomy bag. Patient states he is passing gas. He denies any fever or chills and denies abdominal pain now. Review of systems otherwise negative. Labs and vitals reviewed. Vitals/I&O's: Vital Signs Temp Pulse Resp BP Pulse Ox 98.1 F 82 16 153/67 H 98 07/13/18 09:02 07/13/18 09:02 07/13/18 09:02 07/13/18 09:02 07/13/18 09:02 Oxygen Delivery Method Room Air Weight: 212 lb 4.882 oz Body Mass Index (BMI) 25.2 Finger Stick Blood Glucose 160 Intake and Output for Last 24 Hours 07/11/18 07/12/18 07/13/18 23:59 23:59 23:59 Intake Total 3060 / 3060 2637 / 2637 1518 / 1518 Output Total 1675 / 1675 1525 / 1525 1200 / 1200 Balance 1385 / 1385 1112 / 1112 318 / 318 General: Alert, Oriented x3, Cooperative, No apparent distress HEENT: Atraumatic, PERRLA, EOMI, Normocephalic, - - NG tube in place draining bilious fluid Oral: Dry Mucosa Neck: Supple, No JVD, Negative Carotid Bruits Lungs: Clear to auscultation, Normal air movement, No rhonchi, No wheeze, No rales Cardiovascular: Regular rate, Regular Rhythm, Normal S1, Normal S2, No murmurs Abdomen: Bowel Sounds Present, Soft, Non Tender, Hypoactive Bowel Sounds, - - colostomy bag contains scanty stool; ileostomy bag has some mucous in it Skin: No rashes, No breakdown Musculoskeletal: - - right AKA; paraplegic Neurological: Cranial nerves II-XII grossly intact Psych/Mental Status: Normal Affect, Appropriate, Alert and oriented to time, place, person, mood and affect Microbiology Past 72 Hours 07/10/18 16:55 Gastric Fluid/Contents Gastric Occult Blood - Final Laboratory Results 07/12/18 13:33: POC Glucose 167 H 07/12/18 18:25: POC Glucose 131 H 07/12/18 22:56: POC Glucose 144 H 07/13/18 05:34: WBC 6.3, RBC 3.03 L, Hgb 9.2 L, Hct 28.4 L, MCV 93.7, MCH 30.4, MCHC 32.4, RDW 15.3 H, RDW Differential 50.6 H, Plt Count 168, MPV 9.3, Immature Gran % (Auto) 0.200, Neut % (Auto) 48.6, Lymph % (Auto) 24.3, [place] % (Auto) 10.6 H, Eos % (Auto) 15.8 H, Baso % (Auto) 0.5, Absolute Neuts (auto) 3.0, Absolute Lymphs (auto) 1.52, Total Counted Not Reportable 07/13/18 05:34: Sodium 142, Potassium 3.4 L, Chloride 114 H, Carbon Dioxide 19.0 L, Anion Gap 9, BUN 14, Creatinine 0.83, Estim Creat Clear Calc 70.46, Est GFR (MDRD) Af Amer 116, Est GFR (MDRD) Non-Af 96, BUN/Creatinine Ratio 16.9, Glucose 171 H, Calcium 7.7 L, Phosphorus 3.1, Magnesium 2.1 07/13/18 05:49: POC Glucose 151 H Diagnostic Data Abdomen/Pelvis CT 07/07/18 11:53 IMPRESSION: Small gallstones. Findings suggestive of proximal small bowel obstruction. Postoperative changes seen in the region of the right hip joint with nonvisualization of the femur and the overlying soft tissue induration and ulceration. Electronically Signed: Hayder Cisneros, at 13:05 EDT , Service support , KUB X-Ray 07/12/18 10:14 IMPRESSION: 1. Satisfactory position of enteric tube in stomach, now decompressed. 2. Decreased gaseous distention of small bowel/ileus. Electronically Signed: Truman Perez MD at 13:05 EDT , Service support , Current Medications Acetaminophen (Tylenol Liquid) 650 mg NG Q6H PRN PRN PRN Reason: Mild Pain (1-3)/Temp > 100.7 F Alprazolam (Xanax) 0.5 mg NG QHS PRN PRN PRN Reason: SLEEP Last Admin: 07/12/18 22:51 Dose: 0.5 mg Carvedilol (Coreg) 25 mg NG BID [facility] Last Admin: 07/13/18 09:07 Dose: 25 mg Dextrose (D50w Syringe) 0 gm IV X1 PRN; Protocol PRN Reason: Hypoglycemia Glucagon () 1 mg IM .X1 PRN PRN Reason: Hypoglycemia Heparin Sodium (Porcine) (Heparin Na) 5,000 unit SC BID [facility] Last Admin: 07/13/18 09:08 Dose: 5,000 unit Dextrose/Sodium Chloride () 1,000 mls @ 100 mls/hr IV .Q10H [facility] Last Admin: 07/13/18 05:43 Dose: 100 mls/hr Insulin Human Lispro (Humalog Kwikpen (Bkc)) 0 unit SQ Q6 [facility]; Protocol Last Admin: 07/13/18 06:05 Dose: Not Given Levothyroxine Sodium (Synthroid) 25 mcg NG DAILY@0600 [facility] Last Admin: 07/13/18 05:50 Dose: 25 mcg Morphine Sulfate () 1 mg IV Q2H PRN PRN PRN Reason: SEVERE PAIN (6-10/10) Last Admin: 07/11/18 00:17 Dose: 1 mg Nitroglycerin (Nitrostat) 0.4 mg SUBLINGUAL Q5M PRN PRN Reason: CARDIAC/CHEST PAIN Nystatin (Mycostatin Powder) 1 applic TOPICAL BID [facility]; Protocol Last Admin: 07/13/18 09:08 Dose: 1 applicatio Ondansetron HCl (Zofran) 4 mg IV Q6H PRN PRN PRN Reason: NAUSEA/VOMITING Last Admin: 07/10/18 22:01 Dose: 4 mg Pantoprazole Sodium (Protonix) 40 mg PO DAILY [facility] Last Admin: 07/13/18 09:08 Dose: 40 mg Sodium Chloride () 5 - 15 ml IV UD PRN PRN Reason: SALINE FLUSH Last Admin: 07/11/18 00:17 Dose: 10 ml Sucralfate (Carafate) 1 gm PO 1HR_ACHS [facility] Medical Necessity - Tobacco Use Smoking Status: Never smoker Tobacco Use: Non-smoker Assessment/Plan All Active Problems (Last Reviewed 07/07/18 @ 14:24 by Carlitos Bowers MD) Small bowel obstruction, partial (Acute) Abscess of right hip (Acute) Methicillin resistant Staphylococcus aureus infection (Acute) Family history of skin cancer (Acute) Blister of left leg without infection (Acute) Hypotension (Acute) Probable sepsis (Acute) Infected pressure ulcer (Acute) Abdominal pain (Acute) Acute kidney injury (Acute) Septic shock (Acute) Pressure ulcer of sacral region, stage 3 (Acute) Scrotal ulcer (Acute) Complicated UTI (urinary tract infection) (Acute) Constipation (Acute) Pressure ulcer of perianal region (Resolved) Pressure ulcer of buttock (Resolved) UTI (urinary tract infection) (Acute) 1. 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 Has colostomy and ileostomy in place * has NG tube in place, which is still draining some bilious fluid * having small bowel movement in colostomy bag * general surgery on board * patient currently on clear sips * continue IVF; continue IV protonix * may need EGD per general surgery due to concerns for possible ulcers * 2. Hypokalemia: potassium is 3.4 today. Will replace and monitor 3. HYpomagnesemia and hypophosphatemia: resolved 4. Right hip osteomyelitis s/o I&D * wound care on board * wound cultures E fecalis and VRE as well as MRSA 5. TYpe 2 diabetes mellitus: currently on clear sips. ISS. Accuchecks ACHS 6. Hypertension: fairly controlled: On carvedilol 7. Hypothyroidism: on synthroid DVT prophylaxis: heparin Code Visit Inpatient E&M: 00809 Subs Hosp L3
[2018-07-13] MEDS: Insulin Lispro 100 UNIT/ML INSULN.PEN SQ (12:10)
[2018-07-13] MEDS: Sucralfate 1 GM Tablet PO ×3 (12:10→21:16)
--- NOTE | 2018-07-13 12:34 | NURSING ---
wound photo: left lateral lower leg
--- NOTE | 2018-07-13 12:35 | NURSING ---
wound photo: right hip
[2018-07-13 14:41] LABS: Bedside Glucose 178 mg/dL (70-110)
[2018-07-13 21:09] VITALS: BP 152/64; PULSE 71; RESP 16; TEMP 36.9; O2SAT 100
[2018-07-13 21:41] LABS: Bedside Glucose 147 mg/dL (70-110)
[2018-07-14] MEDS: Dext 5%-0.45% NS 1,000 ML 100 ML IV (03:10)
[2018-07-14 03:36] VITALS: BP 149/60; PULSE 80; RESP 16; TEMP 36.6; O2SAT 99
[2018-07-14] MEDS: Levothyroxine 25 MCG TABLET NG (05:36)
[2018-07-14 05:44] LABS: Absolute Lymphocyte Count 1.37 X10^3/ul (0.83-4.51); Absolute Neutrophil Count 3.6 X10^3/uL (2.0-7.7); Basophil# 0.01 X10^3/uL; Basophil% 0.2 % (0-1); Eosinophil# 0.78 X10^3/uL; Eosinophils% 12.2 % (0-5); Hematocrit 27.1 % (40-54); Hemoglobin 8.9 g/dl (13.0-16.5); Lymphocyte # 1.37 X10^3/ul (4.0); Lymphocyte % 21.5 % (19-41); Mean Corp Hgb Conc 32.8 g/gl (32-36); Mean Corpuscular Hgb 30.5 pg (27.0-32.0); Mean Corpuscular Volume 92.8 fL (80-94); Mean Platelet Vol. 8.9 fl (6.2-12.0); Monocyte# 0.64 X10^3/uL; Neutrophil # 3.55 X10^3/uL (2.7-7.7); Neutrophil % 55.8 % (47-70); Platelet Count 172 K/mm3 (150-450); RBC Distribution Width CV 15.1 % (11.6-14.6); RBC Distribution Width SD 49.9 fl (35.1-43.9); Red Blood Count 2.92 M/mm3 (4.6-6.2); White Blood Count 6.4 K/mm3 (4.4-11.0)
[2018-07-14 05:46] LABS: POSITIVE COUNT NO; POSITIVE DIFFERENTIAL NO; POSITIVE MORPHOLOGY NO
[2018-07-14 06:01] LABS: Anion Gap 10 (5-15); BUN 10 mg/dL (7-18); BUN/Creat Ratio 12.3 RATIO (10-20); Calcium,Total 7.6 mg/dL (8.5-10.1); Chloride 114 mmol/L (98-107); Creatinine, Serum 0.81 mg/dL (0.70-1.30); EST Glomerular Filtration Rate 99 mL/min (>60); Est Glom Filt Rate - Afr Amer 120 mL/min (>60); Glucose 179 mg/dL (74-106); Potassium 3.5 mmol/L (3.5-5.1); Sodium Level 142 mmol/L (136-145)
[2018-07-14] MEDS: Insulin Lispro 100 UNIT/ML INSULN.PEN SC ×2 (06:50→11:08)
[2018-07-14] MEDS: Sucralfate 1 GM Tablet PO ×2 (06:51→11:08)
[2018-07-14 07:01] LABS: Bedside Glucose 175 mg/dL (70-110)
--- NOTE | 2018-07-14 07:55 | PN.SURG_ITS ---
Patient Problems: Active and Suspected Problems (Last Reviewed 07/07/18 @ 14:24 by Carlitos Bowers MD) Small bowel obstruction, partial (Acute) Subjective: Patient evaluated resting comfortably in bed. He notes increased air in his bag and increase in liquidy stool. He denies nausea/vomiting with full liquids. He notes very minimal amount of burning sensation in the epigastric region. - Physical Exam General: Alert, Oriented x3, Cooperative Abdomen: Bowel Sounds Present, Soft, Non Tender, Non-Distended Vital Signs Temp Pulse Resp BP Pulse Ox 98 F 80 16 149/60 H 99 07/14/18 03:36 07/14/18 03:36 07/14/18 03:36 07/14/18 03:36 07/14/18 03:36 Oxygen Delivery Method Room Air Weight: 221 lb 1.978 oz Body Mass Index (BMI) 25.2 Finger Stick Blood Glucose 160 Intake and Output for Last 24 Hours 07/12/18 07/13/18 07/14/18 23:59 23:59 23:59 Intake Total 2637 / 2637 1518 / 1518 1999 / 1999 Output Total 1525 / 1525 1600 / 1600 950 / 950 Balance 1112 / 1112 -82 / -82 1050 / 1050 Laboratory Tests Past 24 Hrs 07/14/18 07/14/18 05:30 05:30 WBC 6.4 RBC 2.92 L Hgb 8.9 L Hct 27.1 L MCV 92.8 MCH 30.5 MCHC 32.8 RDW 15.1 H RDW Differential 49.9 H Plt Count 172 MPV 8.9 Immature Gran % (Auto) 0.300 Neut % (Auto) 55.8 Lymph % (Auto) 21.5 Saunders % (Auto) 10.0 Eos % (Auto) 12.2 H Baso % (Auto) 0.2 Absolute Neuts (auto) 3.6 Absolute Lymphs (auto) 1.37 Total Counted Not Reportable Sodium 142 Potassium 3.5 Chloride 114 H Carbon Dioxide 18.0 L Anion Gap 10 BUN 10 Creatinine 0.81 Estim Creat Clear Calc 72.20 Est GFR (MDRD) Af Amer 120 Est GFR (MDRD) Non-Af 99 BUN/Creatinine Ratio 12.3 Glucose 179 H Calcium 7.6 L POC Glucose 07/14/18 07/13/18 07/13/18 06:48 21:14 12:08 POC Glucose 175 H 147 H 178 H Medical Necessity - Tobacco Use Smoking Status: Never smoker Tobacco Use: Non-smoker Assessment/Plan All Active Problems (Last Reviewed 07/07/18 @ 14:24 by Carlitos Bowers MD) Small bowel obstruction, partial (Acute) Abscess of right hip (Acute) Methicillin resistant Staphylococcus aureus infection (Acute) Family history of skin cancer (Acute) Blister of left leg without infection (Acute) Hypotension (Acute) Probable sepsis (Acute) Infected pressure ulcer (Acute) Abdominal pain (Acute) Acute kidney injury (Acute) Septic shock (Acute) Pressure ulcer of sacral region, stage 3 (Acute) Scrotal ulcer (Acute) Complicated UTI (urinary tract infection) (Acute) Constipation (Acute) Pressure ulcer of perianal region (Resolved) Pressure ulcer of buttock (Resolved) UTI (urinary tract infection) (Acute) I am following this patient in conjunction with Dr. Bowers. Impression: small bowel obstruction. Labs reviewed Regular diet Continue IV hydration Okay for discharge today pending tolerates regular diet Patient will need to be sent home with a 90 day prescription for 40 mg Protonix Follow-up with Dr. Bowers in 1 month for re-evaluation of epigastric discomfort We will continue to monitor this patient Code Visit Inpatient E&M: 40339 [facility] Hosp L1
--- NOTE | 2018-07-14 08:01 | NURSING ---
In to assess stoma. patient had a large amount of flatus in ostomy appliance with 200 cc's liquid brown stool. patient abdominal pain or nausea at this time. pt is hoping to go home later today. pt has been advanced to a regular diet.
[2018-07-14 08:21] VITALS: PULSE 90
[2018-07-14 08:32] VITALS: BP 153/68; PULSE 76; RESP 18; TEMP 36.8; O2SAT 99
[2018-07-14] MEDS: Heparin Injection (Vial) 5,000 UNIT/ML VIAL 5000 UNIT SC (08:36)
[2018-07-14] MEDS: Carvedilol 25 MG Tablet NG (08:37)
[2018-07-14] MEDS: Pantoprazole Sodium 40 MG Tablet PO (08:37)
[2018-07-14] MEDS: Nystatin Powder 15gm Bottle 1 APPLIC TOPICAL (09:59)
[2018-07-14 11:05] LABS: Bedside Glucose 182 mg/dL (70-110)
--- NOTE | 2018-07-14 11:16 | PCM.DC ---
- Discharge Diagnoses Current Active Problems: Current Active and Chronic Problems (Last Reviewed 07/07/18 @ 14:24 by Carlitos Bowers MD) Small bowel obstruction, partial (Acute) You will use the following diet at home:: Cardiac Your food should be the consistency of: Regular Your liquids should be the consistency of: Regular/Thin Discharge Activity: Return to Normal Activity Weight Bearing Status: Weight bearing as tolerated Call your doctor if you observe: Fever of 101 or Higher, Inability to have a bowel movement, - - abdominal pain Allergies/Adverse Reactions: Allergies codeine Adverse Reaction (Verified 07/07/18 11:13) heavy sweats prednisone Adverse Reaction (Verified 07/07/18 11:13) headache, heavy sweats Medications to take at Discharge Multivit-Min/FA/Lycopen/Lutein [Centrum Silver Tablet] 1 tab PO DAILY 03/16/18 Levothyroxine Sodium [Synthroid] 25 mcg PO DAILY 03/20/18 Metformin HCl 1,000 mg PO BID 03/20/18 Ascorbic Acid [Vitamin C] 1,000 mg PO DAILY 04/21/18 Alogliptin Benzoate [Alogliptin] 12.5 mg PO DAILY 07/07/18 Atorvastatin Calcium [Lipitor] 10 mg PO QHS 07/07/18 Carvedilol [Coreg (Beta Roxy)] 25 mg PO BID 07/07/18 Gabapentin [Neurontin] 300 mg PO QHS 07/07/18 Hydrocodone Bitart/Apap 5-325 [[place] 5/325] 2 tablet PO Q4H PRN PRN 07/07/18 Insulin NPH Hum/Reg Insulin Hm [Humulin 70/30 Kwikpen] 50 unit SQ BID 07/07/18 Iron Polysaccharide Complex [Ferrex 150] 150 mg PO BIDCM 07/07/18 Melatonin 3 mg PO QHS 07/07/18 Metoprolol Tartrate [Lopressor (beta roxy)] 25 mg PO BID 07/07/18 Mirtazapine [Remeron] 15 mg PO QHS 07/07/18 Polyethylene Glycol 3350 [Miralax] 17 gm PO DAILY 07/07/18 Zinc Sulfate 220 mg PO DAILY 07/07/18 Pantoprazole Sodium [Protonix] 40 mg PO DAILY #60 tablet 07/14/18 Sucralfate [Carafate] 1 gm PO 1HR_ACHS #90 tablet 07/14/18 The following prescriptions were given: Pantoprazole Sodium [Protonix] 40 mg PO DAILY #60 tablet Sucralfate [Carafate] 1 gm PO 1HR_ACHS #90 tablet Primary Care Physician: Angelina Caceres DO [Primary Care Provider] - Please follow up with your Primary Care Physician in: one week Test Results: Test results from this visit will be discussed in further detail at your follow-up appointment, if applicable. Please Follow Up With: Carlitos Bwoers MD When: 2 weeks Proposed Discharge Date: 07/14/18
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
--- NOTE | 2018-07-14 12:00 | CASEMGMT ---
YOVANY LUNA received update that patient is discharge. YOVANY LUNA updated patient's HHC at [facility] regarding discharge. Discharge instructions and summary faxed to [facility]. YOVANY LUNA updated patient regarding resumption of HHC with [facility]. Patient voiced understanding and requested transport by cot be arranged. YOVANY LUNA updated equal employment opportunity officer regarding request for transport.
[2018-07-14 13:00] VITALS: BP 150/64; PULSE 71; RESP 18; TEMP 36.9; O2SAT 98
--- NOTE | 2018-07-14 13:18 | NURSING ---
Pt switched over to his home VAC prior to being discharged home. pt already has home health at home. VAC due to be changed tomorrow. CHERYL Cramer did let the home health agency know patient is being discharged and VAC will need changed tomorrow.
--- NOTE | 2018-07-14 14:36 | NURSING ---
Message left on pt's phone and daughter's phone to call this nurse, discharge instructions were not given to pt. Therefore nurse called them both and left a message on both phones.
--- NOTE | 2018-07-14 16:00 | NURSING ---
Discharge orders given to Ivone Pt's daughter, including that there are 2 new rxs at [facility] in [facility], see PCP in 1 week and follow up with Dr Bowers in 2 weeks. Verbalized understanding.
--- NOTE | 2018-07-15 13:11 | CASEMGMT ---
YOVANY LUNA Discharge Follow-Up Phone Call. Lace: 15 Strata: 4 Discharge Date: 07/14/18 Adm Dx: SBO Attempted discharge follow-up phone call. No answer. Message left for pt to return call to MS3 YOVANY Cramer, if he has any questions/concerns re: discharge instructions, medications, appts, etc. Phone number provided. Maryanne PEREIRA RN, CM
== END 2018-07-14 13:39 | disposition home or self-care (01) | DRG 388 ==
LOC: ED 11:51 → MS3 14:24
PROVIDERS: Family Medicine; Admitting Provider Internal Medicine; Emergency Provider Emergency Medicine; Family Provider Family Medicine; PCP Family Medicine; Referring Provider Internal Medicine; Visit Provider Student in an Organized Health Care Education/Training Program
DX: K56.51 Intestinal adhesions [bands], with partial obstruction (principal); L89.214 Pressure ulcer of right hip, stage 4; L89.314 Pressure ulcer of right buttock, stage 4; L89.303 Pressure ulcer of unspecified buttock, stage 3; L89.503 Pressure ulcer of unspecified ankle, stage 3; G82.20 Paraplegia, unspecified; E44.0 Moderate protein-calorie malnutrition; L97.322 Non-pressure chronic ulcer of left ankle with fat layer exposed; M86.68 Other chronic osteomyelitis, other site; N17.9 Acute kidney failure, unspecified; Z93.3 Colostomy status; Z93.2 Ileostomy status; E11.42 Type 2 diabetes mellitus with diabetic polyneuropathy; E86.0 Dehydration; Z89.611 Acquired absence of right leg above knee; E66.9 Obesity, unspecified; E03.9 Hypothyroidism, unspecified; E78.5 Hyperlipidemia, unspecified; Z93.6 Other artificial openings of urinary tract status; I12.9 Hypertensive chronic kidney disease with stage 1 through stage 4 chronic kidney disease, or unspecified chronic kidney disease; E11.22 Type 2 diabetes mellitus with diabetic chronic kidney disease; N18.3 Chronic kidney disease, stage 3 (moderate); Z79.4 Long term (current) use of insulin; Z79.899 Other long term (current) drug therapy; D72.829 Elevated white blood cell count, unspecified; S24.102S Unspecified injury at T2-T6 level of thoracic spinal cord, sequela; Z86.14 Personal history of Methicillin resistant Staphylococcus aureus infection; N50.89 Other specified disorders of the male genital organs; Z68.25 Body mass index [BMI] 25.0-25.9, adult; E83.42 Hypomagnesemia; E83.39 Other disorders of phosphorus metabolism; E87.6 Hypokalemia; D63.1 Anemia in chronic kidney disease; E11.51 Type 2 diabetes mellitus with diabetic peripheral angiopathy without gangrene
CPT/HCPCS: 36415; 74018; 74176; 80048; 80053; 82271; 82962; 83605; 83690; 83735; 84100; 85025; 87493; 97166; 97530; 97802; 99285; J7030; J7040; J7050; A4216; J2405; J3490; J7799

== ENCOUNTER 2018-07-26 23:19 | Observation (INO) | payer MEDICARE, SELFPAY ==
[2018-07-26 23:19] VITALS: BMI 25.5
[2018-07-26 23:21] VITALS: BP 128/72; PULSE 156; RESP 24; TEMP 39.6; O2SAT 100; BMI 23.4
[2018-07-26 23:29] VITALS: BP 107/79; PULSE 156; RESP 19; O2SAT 100
[2018-07-26 23:31] VITALS: BP 128/72; PULSE 156; RESP 24; TEMP 39.6; O2SAT 100
--- NOTE | 2018-07-26 23:44 | RAD_ITS ---
STUDY: X-RAY CHEST REASON FOR EXAM: Male, 72 years old. Cough TECHNIQUE: 1 view COMPARISON: None. FINDINGS: The chest is slightly rotated to the left. There is no pneumonia or failure. There are no pleural effusions. Normal visualized thoracic spine. Degenerative changes of the left glenohumeral articulation. An old healed fracture involving the midshaft of the left clavicle There is no demonstrated abnormality of the visualized soft tissue structures of the upper abdomen. RAD/Chest 1 View (Portable) IMPRESSION: No acute findings in the lungs. Degenerative changes of the left glenohumeral articulation. Old healed fracture involving the midshaft of the left clavicle Electronically Signed: Amrit Kolb MD at 0:05 EDT Tel , Service support ,
--- NOTE | 2018-07-26 23:44 | EKG12_ITS ---
Test Reason : Blood Pressure : / mmHG Vent. Rate : 152 BPM Atrial Rate : 152 BPM P-R Int : 114 ms QRS Dur : 066 ms QT Int : 252 ms P-R-T Axes : 083 046 077 degrees QTc Int : 400 ms Sinus tachycardia Otherwise normal ECG Confirmed by EROS ALFONSO, PRABHA ([id number]), multimedia editor JAIDEN KRISHNAMURTHY ([id number]) on 07/27/2018 1:22:24 PM Referred By: Sascha Hadley Confirmed By:PRABHA COONEY MD
[2018-07-26] MEDS: Acetaminophen 500 MG Tablet 1000 MG PO (23:58)
[2018-07-26] MEDS: 0.9% Normal Saline 1,000 ML IV.SOLN. 2500 ML IV (23:59)
[2018-07-27] VITALS (14 sets, daily range): BP systolic 94–142; BP diastolic 45–65; PULSE 98–137; RESP 16–21; TEMP 37–39.2; O2SAT 97–100; BMI 22.4
[2018-07-27 00:11] LABS: Absolute Neutrophil Count 9.5 X10^3/uL (2.0-7.7); Basophil# 0.01 X10^3/uL; Basophil% 0.1 % (0-1); Eosinophil# 0.01 X10^3/uL; Eosinophils% 0.1 % (0-5); Hematocrit 27.7 % (40-54); Hemoglobin 9.4 g/dl (13.0-16.5); Lymphocyte % 3.8 % (19-41); Mean Corp Hgb Conc 33.9 g/gl (32-36); Mean Corpuscular Hgb 30.7 pg (27.0-32.0); Mean Corpuscular Volume 90.5 fL (80-94); Mean Platelet Vol. 9.5 fl (6.2-12.0); Monocyte# 0.54 X10^3/uL; Monocyte% 5.1 % (0-10); Neutrophil # 9.52 X10^3/uL (2.7-7.7); Neutrophil % 90.5 % (47-70); Platelet Count 243 K/mm3 (150-450); RBC Distribution Width CV 14.8 % (11.6-14.6); RBC Distribution Width SD 47.6 fl (35.1-43.9); Red Blood Count 3.06 M/mm3 (4.6-6.2); White Blood Count 10.5 K/mm3 (4.4-11.0)
[2018-07-27 00:13] LABS: Differential Indicated SCAN CRITERIA MET; International Normalized Ratio 1.4; POSITIVE COUNT NO; POSITIVE DIFFERENTIAL YES; POSITIVE MORPHOLOGY NO; Partial Thromboplast Time 38.1 Seconds (24.1-36.2); Prothrombin Time (Protime)PT. 16.8 SECONDS (11.7-14.9)
[2018-07-27 00:20] LABS: ALB/GLOB Ratio 0.5 RATIO (0.9-2.4); AST(SGOT) 30 U/L (15-37); Alanine Aminotransfer ALT/SGPT 34 U/L (16-61); Albumin, Serum 1.9 g/dL (3.2-5.0); Alkaline Phosphatase 110 U/L (45-117); Anion Gap 13 (5-15); BUN 45 mg/dL (7-18); BUN/Creat Ratio 28.8 RATIO (10-20); Calcium,Total 8.2 mg/dL (8.5-10.1); Chloride 101 mmol/L (98-107); Creatinine, Serum 1.56 mg/dL (0.70-1.30); EST Glomerular Filtration Rate 46 mL/min (>60); Est Glom Filt Rate - Afr Amer 56 mL/min (>60); Globulin 3.9 g/dL (2.2-4.2); Glucose 189 mg/dL (74-106); Lactic Acid 1.3 mmol/L (0.4-2.0); Lipase 189 U/L (73-393); Potassium 5.4 mmol/L (3.5-5.1); Protein, Total 5.8 g/dL (6.4-8.2); Sodium Level 128 mmol/L (136-145)
--- NOTE | 2018-07-27 00:30 | ED.RN ---
MULTIPLE ATTEMPTS FOR 2ND IV BY 3 ADDITIONAL NURSES. UNSUCCESSFUL FOR 2ND IV.
[2018-07-27 00:39] LABS: Differential Comment SCANNED
[2018-07-27] MEDS: Vancomycin IV 1,000 MG/200 ML BAG 200 MG IV (00:48)
[2018-07-27 01:57] LABS: Mucous, Urine 0 SEEN /hpf (<or=2+); Red Blood Cells-Urine 0 SEEN /hpf (0-5); Squamous Epithelial Cells - UA 0 SEEN /hpf (0-5)
[2018-07-27 02:04] LABS: Color, Urine Yellow (Yellow); Glucose, Dipstick Normal (Normal); Ketone-Dipstick 15 mg/dl (Negative); Leukocyte Esterase-Dipstick 500 /ul (Negative); Nitrite-Dipstick Negative (Negative); Occult Blood-Urine 50 /ul (Negative); Protein-Dipstick 30 mg/dl (Negative); Urine Bilirubin Dipstick Negative (Negative); Urine Clarity Clear (Clear); Urine Urobilinogen Normal (Normal); Urine pH 6.5 (5.0 - 8.0)
[2018-07-27 02:12] LABS: Bacteria 3+ /hpf (None Seen); White Blood Cells 10-25 SEEN /hpf (0-5)
[2018-07-27] MEDS: Mag Hydrox/Al Hydrox/Simeth 30 ML UDC PO (02:14)
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
[2018-07-27] MEDS: 0.9% Normal Saline 1,000 ML 75 ML IV (05:32)
--- NOTE | 2018-07-27 05:42 | PCM.RX.CS ---
Consult Pharmacy has been consulted to manage selected antiobiotic: Vancomycin Type of Consult: New start Suspected Infection: Sepsis Prior Doses of Antibiotics Received/Current Regimen: Medications Vancomycin HCl () 500 mg in 100 mls @ 100 mls/hr IV Q12H BITA Discontinued Medications Vancomycin HCl (Vancomycin) 1,000 mg in 200 mls @ 200 mls/hr IV X1 ONE Stop: 07/27/18 01:39 Last Admin: 07/27/18 00:48 Dose: 200 mls/hr Labs: Sodium 128 mmol/L (136-145) L 07/26/18 23:40 Potassium 5.4 mmol/L (3.5-5.1) H 07/26/18 23:40 Chloride 101 mmol/L (98-107) 07/26/18 23:40 Carbon Dioxide 14.0 mmol/L (21.0-32.0) L 07/26/18 23:40 Anion Gap 13 (5-15) 07/26/18 23:40 BUN 45 mg/dL (7-18) H 07/26/18 23:40 Creatinine 1.56 mg/dL (0.70-1.30) H 07/26/18 23:40 Est GFR (MDRD) Af Amer 56 mL/min (>60) L 07/26/18 23:40 Est GFR (MDRD) Non-Af 46 mL/min (>60) L 07/26/18 23:40 BUN/Creatinine Ratio 28.8 RATIO (10-20) H 07/26/18 23:40 Glucose 189 mg/dL (74-106) H 07/26/18 23:40 Weight used for dosin.9 kg Estimated Creatinine Clearance: 43 Goal Trough: 15-20 mcg/mL Pharmacy Plan for Drug Dosing: Pharmacy Service will continue to monitor and adjust dosing as required. Follow-Up Labs: Trough Vancomycin Labs to be done on [date and time ordered]: 07/28/18 @1235
[2018-07-27] MEDS: Sucralfate 1 GM Tablet PO ×2 (06:17→10:43)
[2018-07-27] MEDS: Levothyroxine 25 MCG TABLET PO (06:18)
[2018-07-27] MEDS: Insulin Lispro 100 UNIT/ML INSULN.PEN SQ ×2 (06:21→10:43)
[2018-07-27 06:23] LABS: Erythrocyte Sedimentation Rate 65 mm/hr (0-20)
[2018-07-27 06:45] LABS: Bedside Glucose 213 mg/dL (70-110)
[2018-07-27 07:43] LABS: Erythrocyte Sedimentation Rate 30 mm/hr (0-20)
[2018-07-27] MEDS: Pantoprazole Sodium 40 MG Tablet PO (09:04)
[2018-07-27] MEDS: Enoxaparin 40 MG/0.4 ML Syringe SC (09:04)
[2018-07-27 10:51] LABS: Bedside Glucose 222 mg/dL (70-110)
--- NOTE | 2018-07-27 12:06 | NURSING ---
wound photo: right hip
--- NOTE | 2018-07-27 12:07 | NURSING ---
wound photo: sacrum
--- NOTE | 2018-07-27 12:08 | NURSING ---
wound photo: left lateral lower leg:
--- NOTE | 2018-07-27 12:09 | NURSING ---
wound photo: left hip
--- NOTE | 2018-07-27 12:10 | NURSING ---
wound photo:right lower abdomen
[2018-07-27 12:23] LABS: M R Staph aureus DNA By PCR POSITIVE (Negative); Probe Check PASS; Staph aureus DNA By PCR POSITIVE (Negative)
[2018-07-27] MEDS: Vancomycin IV 500 MG/100 ML BAG 100 MG IV (13:22)
[2018-07-27] MEDS: Glucerna Shake 120 ML LIQUID PO (13:22)
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
[2018-07-27] MEDS: Acetaminophen 325 MG Tablet 650 MG PO (13:46)
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
--- NOTE | 2018-07-27 13:56 | CON.PCM_ITS ---
Problem List (1) Sepsis Status: Acute Reason for Consult: sepsis Consulted by: Dr. 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 Wound overall with some improvement. He presented 07/26 with acute onset of fever, chills, shakes. No cough or SOB, no abd pain, no headache. Came to ED, admitted on vanc/zosyn. Full ROS performed and neg except as noted above. 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) Stage III pressure ulcer of buttock (Chronic) Stage III pressure ulcer of ankle (Chronic) Pressure ulcer of left leg, stage 3 (Chronic) Debility (Chronic) Pressure ulcer of right hip, stage 3 (Chronic) Pressure ulcer of left leg, stage 3 (Chronic) Obesity (Chronic) Renal insufficiency (Chronic) Anemia (Chronic) 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) Ulcer of left lower extremity with 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) Malnutrition (Chronic) Vascular disease, peripheral (Chronic) 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) Hypercholesterolemia (Chronic) Paraplegia (Chronic) Hyperlipemia (Chronic) Hypertension (Chronic) History of urostomy (Chronic) Kidney failure (Chronic) 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) Hypothyroidism (Chronic) Diabetes mellitus (Chronic) Allergies/Adverse Reactions: Allergies codeine Adverse Reaction (Verified 07/26/18 23:20) heavy sweats prednisone Adverse Reaction (Verified 07/26/18 23:20) headache, heavy sweats Home Medications: Ambulatory Orders Medication Instructions Recorded Multivit-Min/FA/Lycopen/Lutein 1 tab PO DAILY 03/16/18 [Centrum Silver Tablet] Levothyroxine Sodium [Synthroid] 25 mcg PO DAILY 03/20/18 Metformin HCl 500 mg PO BID 03/20/18 Ascorbic Acid [Vitamin C] 1,000 mg PO DAILY 04/21/18 Alogliptin Benzoate [Alogliptin] 12.5 mg PO DAILY 07/07/18 Atorvastatin Calcium [Lipitor] 10 mg PO QHS 07/07/18 Carvedilol [Coreg (Beta Roxy)] 25 mg PO BID 07/07/18 Gabapentin [Neurontin] 300 mg PO QHS 07/07/18 Hydrocodone Bitart/Apap 5-325 2 tablet PO Q4H PRN PRN 07/07/18 [[place] 5/325] Insulin NPH Hum/Reg Insulin Hm 50 unit SQ BID 07/07/18 [Humulin 70/30 Kwikpen] Iron Polysaccharide Complex 150 mg PO BIDCM 07/07/18 [Ferrex 150] Melatonin 3 mg PO QHS 07/07/18 Metoprolol Tartrate [Lopressor 25 mg PO BID 07/07/18 (beta roxy)] Mirtazapine [Remeron] 15 mg PO QHS 07/07/18 Polyethylene Glycol 3350 [Miralax] 17 gm PO DAILY 07/07/18 Zinc Sulfate 220 mg PO DAILY 07/07/18 Pantoprazole Sodium [Protonix] 40 mg PO DAILY #60 tablet 07/14/18 Sucralfate [Carafate] 1 gm PO 1HR_ACHS #90 tablet 07/14/18 - Social History Tobacco Use: non-smoker Vital Signs Temp Pulse Resp BP Pulse Ox 99.6 F H 98 19 H 111/59 L 97 07/27/18 11:05 07/27/18 09:50 07/27/18 09:50 07/27/18 09:50 07/27/18 09:50 Oxygen Delivery Method Room Air Weight: 70.9 kg Body Mass Index (BMI) 22.4 Finger Stick Blood Glucose 160 Microbiology Past 72 Hours 07/27/18 09:45 Gram Stain - Final Wound - Hip Laboratory Tests Past 24 Hrs 07/26/18 07/26/18 07/26/18 23:40 23:40 23:40 WBC 10.5 RBC 3.06 L Hgb 9.4 L Hct 27.7 L MCV 90.5 MCH 30.7 MCHC 33.9 RDW 14.8 H RDW Differential 47.6 H Plt Count 243 MPV 9.5 Immature Gran % (Auto) 0.400 Neut % (Auto) 90.5 H Lymph % (Auto) 3.8 L [place] % (Auto) 5.1 Eos % (Auto) 0.1 Baso % (Auto) 0.1 Absolute Neuts (auto) 9.5 H Absolute Lymphs (auto) 0.40 L Total Counted Not Reportable Differential Comment SCANNED ESR PT 16.8 H INR 1.4 APTT 38.1 H Sodium 128 L Potassium 5.4 H Chloride 101 Carbon Dioxide 14.0 L Anion Gap 13 BUN 45 H Creatinine 1.56 H Estim Creat Clear Calc 42.90 Est GFR (MDRD) Af Amer 56 L Est GFR (MDRD) Non-Af 46 L BUN/Creatinine Ratio 28.8 H Glucose 189 H Lactic Acid Calcium 8.2 L Total Bilirubin 0.20 AST 30 ALT 34 Alkaline Phosphatase 110 C-React Prot Ext Range Total Protein 5.8 L Albumin 1.9 L Globulin 3.9 Albumin/Globulin Ratio 0.5 L Lipase 189 Urine Color Urine Clarity Urine pH Ur Specific [place] Urine Protein Urine Glucose (UA) Urine Ketones Urine Occult Blood Urine Nitrite Urine Bilirubin Urine Urobilinogen Ur Leukocyte Esterase Urine RBC Urine WBC Ur Squamous Epith Cells Urine Bacteria Urine Mucus S.aureus Protein A PCR MRSA (PCR) 07/26/18 07/26/18 07/26/18 23:40 23:40 23:40 WBC RBC Hgb Hct MCV MCH MCHC RDW RDW Differential Plt Count MPV Immature Gran % (Auto) Neut % (Auto) Lymph % (Auto) [place] % (Auto) Eos % (Auto) Baso % (Auto) Absolute Neuts (auto) Absolute Lymphs (auto) Total Counted Differential Comment ESR 65 H PT INR APTT Sodium Potassium Chloride Carbon Dioxide Anion Gap BUN Creatinine Estim Creat Clear Calc Est GFR (MDRD) Af Amer Est GFR (MDRD) Non-Af BUN/Creatinine Ratio Glucose Lactic Acid 1.3 Calcium Total Bilirubin AST ALT Alkaline Phosphatase C-React Prot Ext Range 190.00 H Total Protein Albumin Globulin Albumin/Globulin Ratio Lipase Urine Color Urine Clarity Urine pH Ur Specific [place] Urine Protein Urine Glucose (UA) Urine Ketones Urine Occult Blood Urine Nitrite Urine Bilirubin Urine Urobilinogen Ur Leukocyte Esterase Urine RBC Urine WBC Ur Squamous Epith Cells Urine Bacteria Urine Mucus S.aureus Protein A PCR MRSA (PCR) 07/27/18 07/27/18 07/27/18 01:55 07:00 09:45 WBC RBC Hgb Hct MCV MCH MCHC RDW RDW Differential Plt Count MPV Immature Gran % (Auto) Neut % (Auto) Lymph % (Auto) [place] % (Auto) Eos % (Auto) Baso % (Auto) Absolute Neuts (auto) Absolute Lymphs (auto) Total Counted Differential Comment ESR 30 H PT INR APTT Sodium Potassium Chloride Carbon Dioxide Anion Gap BUN Creatinine Estim Creat Clear Calc Est GFR (MDRD) Af Amer Est GFR (MDRD) Non-Af BUN/Creatinine Ratio Glucose Lactic Acid Calcium Total Bilirubin AST ALT Alkaline Phosphatase C-React Prot Ext Range Total Protein Albumin Globulin Albumin/Globulin Ratio Lipase Urine Color Yellow Urine Clarity Clear Urine pH 6.5 Ur Specific [place] 1.010 Urine Protein 30 H Urine Glucose (UA) Normal Urine Ketones 15 H Urine Occult Blood 50 H Urine Nitrite Negative Urine Bilirubin Negative Urine Urobilinogen Normal Ur Leukocyte Esterase 500 H Urine RBC 0 SEEN Urine WBC 10-25 SEEN Ur Squamous Epith Cells 0 SEEN Urine Bacteria 3+ Urine Mucus 0 SEEN S.aureus Protein A PCR POSITIVE H MRSA (PCR) POSITIVE H - Other Studies Radiology: [] reviewed Other Studies: [] Route of nutrition/ use of supplements: [] Nutritional Intake: [] IV Site: [] Lozano Catheter: [] - Physical Exam General: Alert, Oriented x3, Cooperative, No apparent distress HEENT: Atraumatic, PERRLA, EOMI Neck: Supple, No Nodes Lungs: Clear to auscultation, Normal air movement Cardiovascular: Regular Rhythm, Tachycardic Abdomen: Soft, Non Tender, Non-Distended, - - urostomy and colostomy Skin: Ulcer/ Wound - reviewed wound photos IV Site: Peripheral, without redness Musculoskeletal: No Tenderness to Palpation of Joints or Extremities Neurological: Cranial nerves II-XII grossly intact - Assessment/Plan Antibiotics: [] Assessment/Plan: [] Active and Suspected Problems (Last Reviewed 07/27/18 @ 07:08 by Sascha Hadley MD) Severe sepsis (Acute) Sepsis (Acute) sepsis - bcx and ucx pending. Surgery to see for I&D of R hip. Cont vanc/zosyn. Will follow, thank you.
--- NOTE | 2018-07-27 14:21 | CASEMGMT ---
YOVANY LUNA NOTE: Call placed to Janell @ [facility] @ . She was notified pt being transferred to [facility]. Maryanne PEREIRA RN CM
== END 2018-07-27 16:17 | disposition short-term general hospital (02) ==
LOC: ED 07-27 03:26 → PCU 07-27 07:29
PROVIDERS: Admitting Provider Hospitalist; Emergency Provider Emergency Medicine; Family Provider Family Medicine; PCP Family Medicine; Referring Provider Hospitalist; Visit Provider Internal Medicine
DX: A41.9 Sepsis, unspecified organism (principal); R65.21 Severe sepsis with septic shock; E11.622 Type 2 diabetes mellitus with other skin ulcer; L89.153 Pressure ulcer of sacral region, stage 3; E03.9 Hypothyroidism, unspecified; E11.22 Type 2 diabetes mellitus with diabetic chronic kidney disease; L89.214 Pressure ulcer of right hip, stage 4; G82.20 Paraplegia, unspecified; E11.42 Type 2 diabetes mellitus with diabetic polyneuropathy; E11.51 Type 2 diabetes mellitus with diabetic peripheral angiopathy without gangrene; I12.9 Hypertensive chronic kidney disease with stage 1 through stage 4 chronic kidney disease, or unspecified chronic kidney disease; N18.3 Chronic kidney disease, stage 3 (moderate); E87.5 Hyperkalemia; E87.1 Hypo-osmolality and hyponatremia; N17.9 Acute kidney failure, unspecified; B95.2 Enterococcus as the cause of diseases classified elsewhere; E78.5 Hyperlipidemia, unspecified; B95.62 Methicillin resistant Staphylococcus aureus infection as the cause of diseases classified elsewhere; E11.69 Type 2 diabetes mellitus with other specified complication; M86.8X8 Other osteomyelitis, other site; Z93.3 Colostomy status; Z16.21 Resistance to vancomycin; Z93.6 Other artificial openings of urinary tract status; Z79.899 Other long term (current) drug therapy; Z79.4 Long term (current) use of insulin; Z89.611 Acquired absence of right leg above knee
CPT/HCPCS: 36415; 71045; 80053; 81001; 82962; 83605; 83690; 85025; 85610; 85652; 85730; 86140; 87040; 87070; 87075; 87077; 87086; 87088; 87186; 87205; 87640; 93005; 96361; 96365; 96366; 96367; 96372; 97802; 99218; 99285; J7030; J7040; J7050; A4216; G0378

== ENCOUNTER 2019-01-27 15:42 | Inpatient (IN) | payer MEDICARE, SELFPAY ==
[2018-07-27 04:04] VITALS: BMI 22.4
[2019-01-27] VITALS (8 sets, daily range): BP systolic 112–128; BP diastolic 58–69; PULSE 98–112; RESP 18–19; TEMP 36.4–37.2; O2SAT 99–100; BMI 25.0; BMI 25.1
--- NOTE | 2019-01-27 15:49 | EKG12_ITS ---
Test Reason : Blood Pressure : / mmHG Vent. Rate : 099 BPM Atrial Rate : 099 BPM P-R Int : 152 ms QRS Dur : 080 ms QT Int : 350 ms P-R-T Axes : 078 065 086 degrees QTc Int : 449 ms Normal sinus rhythm Nonspecific ST and T wave abnormality Abnormal ECG Confirmed by BILLY ALFONSO, MEGHANN ([id number]), purchasing expeditor JAIDEN KRISHNAMURTHY ([id number]) on 02/01/2019 12:49:17 PM Referred By: Shaheen Contreras Confirmed By:VINAY CERVANTES MD
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
[2019-01-27 16:32] LABS: Absolute Lymphocyte Count 1.45 X10^3/uL (0.83-4.51); Absolute Neutrophil Count 5.7 X10^3/uL (2.0-7.7); Basophil# 0.02 X10^3/uL; Basophil% 0.2 % (0-1); Eosinophil# 1.59 X10^3/uL; Eosinophils% 16.2 % (0-5); Hematocrit 23.6 % (40-54); Hemoglobin 7.6 g/dL (13.0-16.5); Lymphocyte # 1.45 X10^3/ul (4.0); Lymphocyte % 14.8 % (19-41); Mean Corp Hgb Conc 32.2 g/dL (32-36); Mean Corpuscular Hgb 28.3 pg (27.0-32.0); Mean Corpuscular Volume 87.7 fL (80-94); Mean Platelet Vol. 9.1 fl (6.2-12.0); Monocyte% 9.2 % (0-10); NRBC Flagged by Analyzer 0 % (0-5); Neutrophil # 5.67 X10^3/uL (2.7-7.7); Platelet Count 301 K/mm3 (150-450); RBC Distribution Width CV 14.7 % (11.6-14.6); RBC Distribution Width SD 47.5 fl (35.1-43.9); Red Blood Count 2.69 M/mm3 (4.6-6.2); White Blood Count 9.8 K/mm3 (4.4-11.0)
[2019-01-27 17:41] LABS: Anion Gap 11 (5-15); BUN 110 mg/dL (7-18); BUN/Creat Ratio 27.8 RATIO (10-20); Chloride 97 mmol/L (98-107); Creatinine, Serum 3.95 mg/dL (0.70-1.30); EST Glomerular Filtration Rate 16 mL/min (>60); Est Glom Filt Rate - Afr Amer 19 mL/min (>60); Estimated Creatinine Clearance 16.68 ml/min; Glucose 157 mg/dL (74-106); Potassium 4.8 mmol/L (3.5-5.1); Sodium Level 129 mmol/L (136-145)
--- NOTE | 2019-01-27 17:41 | ED.RN ---
bun [address] called from the lab. dr rick aware
[2019-01-27 20:01] LABS: Bedside Glucose 104 mg/dL (70-110)
[2019-01-27 20:49] LABS: Magnesium 1.6 mg/dL (1.6-2.6)
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
[2019-01-27] MEDS: 0.9% Normal Saline 1,000 ML 150 ML IV (23:08)
[2019-01-27] MEDS: Sucralfate 1 GM Tablet PO (23:09)
[2019-01-27] MEDS: Sodium Bicarbonate 650 MG Tablet 1300 MG PO (23:09)
[2019-01-27] MEDS: Ascorbic Acid 500 MG Tablet 1000 MG PO (23:10)
[2019-01-27] MEDS: Gabapentin 300 MG Capsule PO (23:11)
[2019-01-27] MEDS: Metoprolol Tartrate 25 MG Tablet PO (23:11)
[2019-01-27] MEDS: Atorvastatin Calcium 10 MG Tablet PO (23:13)
[2019-01-27 23:31] LABS: Bedside Glucose 164 mg/dL (70-110)
[2019-01-28] VITALS (14 sets, daily range): BP systolic 96–105; BP diastolic 47–57; PULSE 100–113; RESP 15–18; TEMP 36.6–37.3; O2SAT 95–98
[2019-01-28 03:21] LABS: Bedside Glucose 185 mg/dL (70-110)
[2019-01-28] MEDS: 0.9% Normal Saline 1,000 ML 150 ML IV (05:30)
[2019-01-28] MEDS: Levothyroxine 25 MCG TABLET PO (05:33)
[2019-01-28] MEDS: Sodium Bicarbonate 650 MG Tablet 1300 MG PO ×3 (05:33→21:47)
[2019-01-28 07:11] LABS: Absolute Lymphocyte Count 1.26 X10^3/uL (0.83-4.51); Basophil# 0.03 X10^3/uL; Basophil% 0.4 % (0-1); Eosinophil# 1.24 X10^3/uL; Eosinophils% 14.7 % (0-5); Hematocrit 24.4 % (40-54); Hemoglobin 7.8 g/dL (13.0-16.5); Lymphocyte # 1.26 X10^3/ul (4.0); Lymphocyte % 14.9 % (19-41); Mean Corpuscular Hgb 28.5 pg (27.0-32.0); Mean Corpuscular Volume 89.1 fL (80-94); Mean Platelet Vol. 8.9 fl (6.2-12.0); Monocyte# 0.81 X10^3/uL; Monocyte% 9.6 % (0-10); NRBC Flagged by Analyzer 0 % (0-5); Neutrophil # 4.97 X10^3/uL (2.7-7.7); Neutrophil % 58.9 % (47-70); Platelet Count 265 K/mm3 (150-450); RBC Distribution Width CV 14.8 % (11.6-14.6); RBC Distribution Width SD 47.6 fl (35.1-43.9); Red Blood Count 2.74 M/mm3 (4.6-6.2); White Blood Count 8.4 K/mm3 (4.4-11.0)
[2019-01-28] MEDS: Sucralfate 1 GM Tablet PO ×4 (07:34→21:46)
[2019-01-28 07:41] LABS: Bedside Glucose 152 mg/dL (70-110)
[2019-01-28 07:54] LABS: AST(SGOT) 16 U/L (15-37); Alanine Aminotransfer ALT/SGPT 38 U/L (16-61); Albumin, Serum 1.6 g/dL (3.2-5.0); Alkaline Phosphatase 81 U/L (45-117); Anion Gap 12 (5-15); BUN 113 mg/dL (7-18); BUN/Creat Ratio 29.8 RATIO (10-20); Bilirubin, Direct 0.07 mg/dL (0.00-0.30); Calcium,Total 8.1 mg/dL (8.5-10.1); Chloride 104 mmol/L (98-107); Creatinine, Serum 3.79 mg/dL (0.70-1.30); EST Glomerular Filtration Rate 17 mL/min (>60); Est Glom Filt Rate - Afr Amer 20 mL/min (>60); Estimated Creatinine Clearance 8.17 ml/min; Globulin 3.7 g/dL (2.2-4.2); Glucose 167 mg/dL (74-106); Potassium 4.5 mmol/L (3.5-5.1); Protein, Total 5.3 g/dL (6.4-8.2); Sodium Level 133 mmol/L (136-145); Thyroid Stim Hormone (TSH) 0.98 uIU/mL (0.358-3.74)
--- NOTE | 2019-01-28 08:11 | US_ITS ---
STUDY: RENAL ULTRASOUND - COMPLETE REASON FOR EXAM: Male, 73 years old. Elevated BUN TECHNIQUE: Ultrasound evaluation of the kidneys was performed with real-time and static kemp-scale imaging. COMPARISON: None. FINDINGS: RIGHT KIDNEY: Normal location of the right kidney, which is normal in size. The right kidney measures 14.0 x 6.4 x 6.7 cm. There are anechoic cysts of the right kidney measuring 1.9 and 1.2 cm, respectively. The renal cortex measures 0.9 cm. There is no right renal mass or cyst. There are no right renal calculi. There is no right hydronephrosis. DISTAL RIGHT URETER: There is non-visualization of the distal right ureter. There is no demonstrated right ureterovesical junction calculus. There is no demonstrated right ureteral jet. LEFT KIDNEY: with severe renal atrophy. The left kidney measures 9.5 x 5.7 x 4.2 cm. There is diffuse thinning of the renal cortex. The renal cortex measures 0.7 cm. Multiple anechoic cysts of the left kidney are identified. There are no left renal calculi. There is no left hydronephrosis. DISTAL LEFT URETER: There is non-visualization of the distal left ureter. There is no demonstrated left ureterovesical junction calculus. There is a visualized left ureteral jet. BLADDER: The urinary bladder is decompressed by Lozano catheter. US/Kidney and Bladder IMPRESSION: 1. No hydronephrosis. 2. Severe left renal cortical atrophy. 3. Bilateral simple renal cysts. Electronically Signed: Truman Perez MD (Brooks) at 16:54 EST , Service support ,
[2019-01-28] MEDS: Ferrous Sulfate 325 MG Tablet PO ×2 (08:12→16:39)
[2019-01-28] MEDS: Pantoprazole Sodium 40 MG Tablet PO (08:12)
[2019-01-28] MEDS: Multivitamins,Ther W-Minerals Tablet 1 TABLET PO (08:12)
[2019-01-28] MEDS: Ascorbic Acid 500 MG Tablet 1000 MG PO ×2 (08:12→21:47)
[2019-01-28] MEDS: Aspirin 81 MG TAB.CHEW PO (08:12)
[2019-01-28] MEDS: Metoprolol Tartrate 25 MG Tablet PO ×2 (08:14→21:46)
[2019-01-28] MEDS: amLODIPine 5 MG Tablet PO (08:15)
[2019-01-28 11:15] LABS: Bedside Glucose 238 mg/dL (70-110)
[2019-01-28] MEDS: Insulin Lispro 100 UNIT/ML INSULN.PEN SC ×2 (11:15→16:39)
--- NOTE | 2019-01-28 11:37 | PN_ITS ---
Patient Problems: Active and Suspected Problems (Last Reviewed 07/27/18 @ 13:58 by Kaleigh Braden PA-C) Solitary kidney (Acute) Acute kidney injury on CKD stage III (Acute) Subjective: Patient seen and examined. He was admitted from his senior living with a complaint of hyperkalemia and acute kidney injury detected by routine labs. Patient has no complaints. Feels well. Patient states he has been eating and drinking well. He denies any nausea vomiting or diarrhea. Review of stems otherwise negative. Prior to admission, patient had been on Kayexalate for about 3 days because this potassium was found to be 5.4 in the senior living. Labs and vitals reviewed. Potassium is down to 4.5 today. Creatinine has trended up from 3.95 to 3.79. Hemoglobin today 7.8 and was 7.6 on admission. Vitals/I&O's: Vital Signs Temp Pulse Resp BP Pulse Ox 98.4 F 102 H 16 105/57 L 97 01/28/19 08:15 01/28/19 11:26 01/28/19 08:15 01/28/19 08:15 01/28/19 08:15 Oxygen Delivery Method Room Air Weight: 174 lb 13.225 oz Body Mass Index (BMI) 25.0 Finger Stick Blood Glucose 160 Intake and Output for Last 24 Hours 01/26/19 01/27/19 01/28/19 23:59 23:59 23:59 Intake Total 500 / 980 2200.0 / 2200.0 Output Total 1450 / 1450 Balance 500 / -20 750.0 / 750.0 General: Alert, Oriented x3, Cooperative, No apparent distress HEENT: Atraumatic, PERRLA, EOMI, Normocephalic Oral: Moist Mucosa Neck: Supple, No JVD, Negative Carotid Bruits Lungs: Clear to auscultation, Normal air movement, No rhonchi, No wheeze, No rales Cardiovascular: Regular rate, Regular Rhythm, Normal S1, Normal S2, No murmurs Abdomen: Bowel Sounds Present, Soft, Non Tender, Non-Distended, No Hepato-splenomegaly, - - colostomy bag in place; suprapubic catheter Skin: - - right hip disarticulated Musculoskeletal: No Tenderness to Palpation of Joints or Extremities Lymphatic: No Cervical, Supraclavicular, or Inguinal Adenopathy Neurological: Cranial nerves II-XII grossly intact Psych/Mental Status: Normal Affect, Appropriate, Alert and oriented to time, place, person, mood and affect Laboratory Results 01/27/19 16:20: WBC 9.8, RBC 2.69 L, Hgb 7.6 L, Hct 23.6 L, MCV 87.7, MCH 28.3, MCHC 32.2, RDW Std Deviation 47.5 H, RDW Coeff of Raji 14.7 H, Plt Count 301, MPV 9.1, Immature Gran % (Auto) 1.600 H, Neut % (Auto) 58.0, Lymph % (Auto) 14.8 L, Graves % (Auto) 9.2, Eos % (Auto) 16.2 H, Baso % (Auto) 0.2, Absolute Neuts (auto) 5.7, Absolute Lymphs (auto) 1.45, Nucleated RBC % 0 01/27/19 16:20: Sodium 129 L, Potassium 4.8, Chloride 97 L, Carbon Dioxide 21.0, Anion Gap 11, BUN 110 H*, Creatinine 3.95 H, Estim Creat Clear Calc 16.68, Est GFR (MDRD) Af Amer 19 L, Est GFR (MDRD) Non-Af 16 L, BUN/Creatinine Ratio 27.8 H , Glucose 157 H, Calcium 8.0 L 01/27/19 16:20: Magnesium 1.6 01/27/19 19:54: POC Glucose 104 01/27/19 23:19: POC Glucose 164 H 01/28/19 03:07: POC Glucose 185 H 01/28/19 06:45: Sodium 133 L, Potassium 4.5, Chloride 104, Carbon Dioxide 17.0 L , Anion Gap 12, BUN 113 H*, Creatinine 3.79 H, Estim Creat Clear Calc 8.17, Est GFR (MDRD) Af Amer 20 L, Est GFR (MDRD) Non-Af 17 L, BUN/Creatinine Ratio 29.8 H , Glucose 167 H, Calcium 8.1 L, Total Bilirubin 0.10 L, Direct Bilirubin 0.07, AST 16, ALT 38, Alkaline Phosphatase 81, Total Protein 5.3 L, Albumin 1.6 L, Globulin 3.7, TSH 0.98 01/28/19 06:45: WBC 8.4, RBC 2.74 L, Hgb 7.8 L, Hct 24.4 L, MCV 89.1, MCH 28.5, MCHC 32.0, RDW Std Deviation 47.6 H, RDW Coeff of Raji 14.8 H, Plt Count 265, MPV 8.9, Immature Gran % (Auto) 1.500 H, Neut % (Auto) 58.9, Lymph % (Auto) 14.9 L, Graves % (Auto) 9.6, Eos % (Auto) 14.7 H, Baso % (Auto) 0.4, Absolute Neuts (auto) 5.0, Absolute Lymphs (auto) 1.26, Nucleated RBC % 0 01/28/19 07:32: POC Glucose 152 H 01/28/19 11:06: POC Glucose 238 H Current Medications Acetaminophen (Tylenol) 650 mg PO Q6H PRN PRN PRN Reason: Pain Score 1-3/Temp > 100.7 F Al Hydroxide/Mg Hydroxide (Mylanta Ii) 30 ml PO Q6H PRN PRN PRN Reason: Gastric Burning Albuterol Sulfate (Ventolin Aerosols) 2.5 mg INHALATION Q2H PRN PRN PRN Reason: SOB/Wheezing Amlodipine Besylate (Norvasc) 5 mg PO DAILY [facility] Last Admin: 01/28/19 08:15 Dose: 5 mg Documented by: Ascorbic Acid (Vitamin C) 1,000 mg PO BID [facility] Last Admin: 01/28/19 08:12 Dose: 1,000 mg Documented by: Aspirin (Aspirin, Baby) 81 mg PO DAILY@0800 [facility] Last Admin: 01/28/19 08:12 Dose: 81 mg Documented by: Atorvastatin Calcium (Lipitor) 10 mg PO QHS [facility] Last Admin: 01/27/19 23:13 Dose: 10 mg Documented by: Colesevelam HCl (Welchol) 625 mg PO BID [facility] Last Admin: 01/28/19 08:13 Dose: 625 mg Documented by: [facility] Admin: 01/28/19 08:12 Dose: 325 mg Documented by: Gabapentin (Neurontin) 300 mg PO QHS [facility] Last Admin: 01/27/19 23:11 Dose: 300 mg Documented by: Glucagon () 1 mg IM .X1 PRN PRN Reason: Hypoglycemia Guaifenesin (Robitussin) 20 ml PO Q4H PRN PRN PRN Reason: COUGH Sodium Chloride () 250 mls @ 15 mls/hr IV .[id number] PRN PRN Reason: Saline Flush Sodium Chloride () 250 mls @ 15 mls/hr IV .[id number] PRN PRN Reason: Additional IVPB Infusion Dextrose (Dextrose 10%-Water) 250 mls @ 999 mls/hr IV .Q16M PRN; Protocol PRN Reason: HYPOGLYCEMIA Insulin Human Lispro (Humalog Kwikpen (Bkc)) 0 unit SC ACHS [facility]; Protocol Last Admin: 01/28/19 11:15 Dose: 4 u Documented by: Levothyroxine Sodium (Synthroid) 25 mcg PO DAILY@0600 [facility] Last Admin: 01/28/19 05:33 Dose: 25 mcg Documented by: Melatonin (Melatonin) 3 mg PO QHS PRN PRN PRN Reason: INSOMNIA Metoprolol Tartrate (Lopressor (Beta Roxy)) 25 mg PO BID [facility] Last Admin: 01/28/19 08:14 Dose: 25 mg Documented by: Morphine Sulfate () 2 mg IV Q3H PRN PRN PRN Reason: Pain Score 6-10/10 Multivitamins/Minerals (Multivitamin With Minerals) 1 tablet PO DAILY@0800 [facility] Last Admin: 01/28/19 08:12 Dose: 1 tablet Documented by: Nitroglycerin (Nitrostat) 0.4 mg SUBLINGUAL Q5M PRN PRN Reason: CARDIAC/CHEST PAIN Ondansetron HCl (Zofran) 4 mg IV Q8H PRN PRN PRN Reason: NAUSEA/VOMITING Oxycodone HCl (Oxyir) 5 mg PO Q4H PRN PRN PRN Reason: Pain Score 4-5/10 Pantoprazole Sodium (Protonix) 40 mg PO DAILY [facility] Last Admin: 01/28/19 08:12 Dose: 40 mg Documented by: Polyethylene Glycol (Miralax) 17 gm PO DAILY PRN PRN PRN Reason: Constipation Senna/Docusate Sodium (Senokot-S, Itzel-Colace) 2 tablet PO BID PRN PRN PRN Reason: Constipation Sodium Bicarbonate (Sodium Bicarbonate) 1,300 mg PO TID [facility] Last Admin: 01/28/19 05:33 Dose: 1,300 mg Documented by: Sodium Chloride () 10 - 40 ml IV UD PRN PRN Reason: SALINE FLUSH Sucralfate (Carafate) 1 gm PO 1HR_ACHS [facility] Last Admin: 01/28/19 11:09 Dose: 1 gm Documented by: STROKE Vital Signs/Narrative: Vital Signs Temp Pulse Resp BP Pulse Ox 01/28/19 11:26 102 H 01/28/19 08:15 98.4 F 105 H 16 105/57 L 97 01/28/19 08:14 105 H 01/28/19 08:00 107 H Medical Necessity - Tobacco Use Smoking Status: Never smoker Assessment/Plan All Active Problems (Last Reviewed 07/27/18 @ 13:58 by Kaleigh Braden PA-C) Solitary kidney (Acute) Acute kidney injury on CKD stage III (Acute) Blister of left leg without infection (Acute) Hypotension (Acute) Probable sepsis (Acute) Infected pressure ulcer (Acute) Abdominal pain (Acute) Acute kidney injury (Acute) Septic shock (Acute) Pressure ulcer of sacral region, stage 3 (Acute) Scrotal ulcer (Acute) Complicated UTI (urinary tract infection) (Acute) Constipation (Acute) Pressure ulcer of perianal region (Resolved) Pressure ulcer of buttock (Resolved) UTI (urinary tract infection) (Acute) 1. Andrew with hyperkalemia * patient does have a solitary right kidney * Cr was 3.95 on admission, with baseline Cr of 0.8 * K was 5.4 in senior living; is now 4.5 * nephrology consulted- await rec's * renal USG pending * monitor intake and output * will check urinalysis * check FeNa, FeUrea * continue hydrating with IVF NS ~ 150cc/hr * 2. Acute on chronic anemia * Hb today is 7.8; was 7.6 on admission * Baseline hemoglobin is around 9.4. * Check stool for occult blood. Check iron panel. * Occult blood is positive, will consult general surgery. * 3. 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 Chronic decubitus ulcers * present on admission. Stage 3 unclers over buttocks and coccyx * has paraplegia * wound care on board * 5. Type 2 diabetes mellitus: On insulin sliding scale. Accu-Cheks AC at be dtime. Home metformin held on account of kidney injury. 6. Hypertension hyperlipidemia: On statin and metoprolol as well as amlodipine. 7. Hypothyroidism: On Synthroid: DVT prophylaxis; cannot use SCDs on account of right hip disarticulation and left knee amputation. Unable to anticoagulate on account of anemia. Code status: Code Visit Inpatient E&M: 53410 Subs Hosp L3
--- NOTE | 2019-01-28 13:25 | CASEMGMT ---
SW confirmed w/pt that his plan is to return to [facility] when ready, he has been there about a week. SW will continue to follow for pt's return to [facility] when ready. [facility]
--- NOTE | 2019-01-28 13:25 | NURSING ---
wound photo: abdomen
--- NOTE | 2019-01-28 13:26 | NURSING ---
wound photo: right ischium/sacrum
--- NOTE | 2019-01-28 13:27 | NURSING ---
wound photo: left ischium/sacrum
[2019-01-28 13:42] LABS: Ferritin 1035 ng/mL (26-388); Iron 57 ug/dL (65-175); Iron Binding Capacity,Total 112 ug/dL (250-450); PERCENT IRON SATURATION 50.9 % (15.0-55.0)
[2019-01-28 14:26] LABS: Mucous, Urine 0 SEEN /hpf (<or=2+)
[2019-01-28 14:30] LABS: Color, Urine Yellow (Yellow); Glucose, Dipstick Normal (Normal); Ketone-Dipstick Negative (Negative); Leukocyte Esterase-Dipstick 500 /ul (Negative); Nitrite-Dipstick Negative (Negative); Occult Blood-Urine 250 /ul (Negative); Protein-Dipstick 100 mg/dl (Negative); Urine Bilirubin Dipstick Negative (Negative); Urine Clarity Sl. Cloudy (Clear); Urine Urobilinogen Normal (Normal)
[2019-01-28 14:39] LABS: Bacteria 2+ /hpf (None Seen); Red Blood Cells-Urine 25-50 SEEN /hpf (0-5); Squamous Epithelial Cells - UA 0-5 SEEN /hpf (0-5); White Blood Cells 50-100 SEEN /hpf (0-5)
[2019-01-28 14:41] LABS: Urine Sodium 37 mmol/L (Not Establ.)
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
[2019-01-28] MEDS: Albuterol 2.5 MG/3 ML VIAL.NEB. INHALATION (16:39)
[2019-01-28] MEDS: 0.9% Saline Lock 10 ML Syringe IV (16:40)
[2019-01-28] MEDS: 0.9% Normal Saline 1,000 ML 100 ML IV (16:40)
[2019-01-28 16:51] LABS: Bedside Glucose 186 mg/dL (70-110)
[2019-01-28] MEDS: Acetaminophen 325 MG Tablet 650 MG PO (21:45)
[2019-01-28] MEDS: Atorvastatin Calcium 10 MG Tablet PO (21:46)
[2019-01-28] MEDS: Gabapentin 300 MG Capsule PO (21:47)
[2019-01-28 22:20] LABS: Bedside Glucose 211 mg/dL (70-110)
[2019-01-29] VITALS (11 sets, daily range): BP systolic 95–113; BP diastolic 52–63; PULSE 97–111; RESP 16–20; TEMP 36.3–36.9; O2SAT 94–98
[2019-01-29] MEDS: 0.9% Normal Saline 1,000 ML 100 ML IV ×2 (02:07→11:30)
[2019-01-29] MEDS: Levothyroxine 25 MCG TABLET PO (06:42)
[2019-01-29] MEDS: Sodium Bicarbonate 650 MG Tablet 1300 MG PO ×3 (06:42→21:14)
[2019-01-29] MEDS: Sucralfate 1 GM Tablet PO ×4 (06:42→21:14)
[2019-01-29 06:51] LABS: Bedside Glucose 130 mg/dL (70-110)
[2019-01-29 06:54] LABS: Absolute Lymphocyte Count 1.65 X10^3/uL (0.83-4.51); Absolute Neutrophil Count 5.5 X10^3/uL (2.0-7.7); Basophil# 0.03 X10^3/uL; Basophil% 0.3 % (0-1); Eosinophil# 1.03 X10^3/uL; Eosinophils% 10.9 % (0-5); Hematocrit 23.5 % (40-54); Hemoglobin 7.3 g/dL (13.0-16.5); Lymphocyte # 1.65 X10^3/ul (4.0); Lymphocyte % 17.4 % (19-41); Mean Corp Hgb Conc 31.1 g/dL (32-36); Mean Corpuscular Hgb 27.9 pg (27.0-32.0); Mean Corpuscular Volume 89.7 fL (80-94); Mean Platelet Vol. 9.3 fl (6.2-12.0); Monocyte# 1.13 X10^3/uL; Monocyte% 11.9 % (0-10); NRBC Flagged by Analyzer 0 % (0-5); Platelet Count 295 K/mm3 (150-450); RBC Distribution Width CV 15.1 % (11.6-14.6); RBC Distribution Width SD 49.1 fl (35.1-43.9); Red Blood Count 2.62 M/mm3 (4.6-6.2); White Blood Count 9.5 K/mm3 (4.4-11.0)
[2019-01-29 07:11] LABS: Anion Gap 12 (5-15); BUN 106 mg/dL (7-18); Calcium,Total 7.6 mg/dL (8.5-10.1); Chloride 104 mmol/L (98-107); Creatinine, Serum 3.79 mg/dL (0.70-1.30); EST Glomerular Filtration Rate 17 mL/min (>60); Est Glom Filt Rate - Afr Amer 20 mL/min (>60); Estimated Creatinine Clearance 17.39 ml/min; Glucose 133 mg/dL (74-106); Potassium 4.5 mmol/L (3.5-5.1); Sodium Level 132 mmol/L (136-145)
[2019-01-29] MEDS: Ascorbic Acid 500 MG Tablet 1000 MG PO ×2 (09:16→21:14)
[2019-01-29] MEDS: Aspirin 81 MG TAB.CHEW PO (09:17)
[2019-01-29] MEDS: Pantoprazole Sodium 40 MG Tablet PO (09:17)
[2019-01-29] MEDS: Ferrous Sulfate 325 MG Tablet PO ×2 (09:17→17:04)
[2019-01-29] MEDS: Multivitamins,Ther W-Minerals Tablet 1 TABLET PO (09:17)
[2019-01-29] MEDS: Albuterol 2.5 MG/3 ML VIAL.NEB. INHALATION (09:59)
--- NOTE | 2019-01-29 10:34 | CASEMGMT ---
SONIA spoke with Hanane at [facility] and told her to start the pre-cert. SONIA faxed all information to Hanane at [facility]. Luann ALLEN MSW
--- NOTE | 2019-01-29 10:51 | PN_ITS ---
Patient Problems: Active and Suspected Problems (Last Reviewed 07/27/18 @ 13:58 by Kaleigh Braden PA-C) Solitary kidney (Acute) Acute kidney injury on CKD stage III (Acute) Subjective: Patient seen and examined. He had no active complaints overnight. He does say he has not had a bowel movement for the past 4 days and this is concerning for him. Review of systems otherwise negative. Labs and vitals reviewed. Creatinine has trended down slightly to 3.79 and sodium is 132 today. Blood pressure has been running a bit on the low side was it being 96/52 this morning. [place]in is down to 7.3 this morning. Vitals/I&O's: Vital Signs Temp Pulse Resp BP Pulse Ox 97.3 F L 108 H 16 96/52 L 98 01/29/19 09:07 01/29/19 09:59 01/29/19 09:59 01/29/19 09:07 01/29/19 09:07 Oxygen Delivery Method Room Air Weight: 174 lb 13.225 oz Body Mass Index (BMI) 25.0 Finger Stick Blood Glucose 160 Intake and Output for Last 24 Hours 01/27/19 01/28/19 01/29/19 23:59 23:59 23:59 Intake Total 500 / 980 3440.0 / 3940.0 1445 / 1445 Output Total 1900 / 1900 200 / 200 Balance 500 / -20 1540.0 / 2040.0 1245 / 1245 General: Alert, Oriented x3, Cooperative, No apparent distress HEENT: Atraumatic, PERRLA, EOMI, Normocephalic Oral: Moist Mucosa Neck: Supple, No JVD, Negative Carotid Bruits Lungs: Clear to auscultation, Normal air movement, No rhonchi, No wheeze, No rales Cardiovascular: Regular rate, Regular Rhythm, Normal S1, Normal S2, No murmurs Abdomen: Bowel Sounds Present, Soft, Non Tender, Non-Distended, No Hepato- splenomegaly, - - colostomy bag in place; suprapubic catheter Skin: - - right hip disarticulated Musculoskeletal: No Tenderness to Palpation of Joints or Extremities Lymphatic: No Cervical, Supraclavicular, or Inguinal Adenopathy Neurological: Cranial nerves II-XII grossly intact Psych/Mental Status: Normal Affect, Appropriate, Alert and oriented to time, place, person, mood and affect Laboratory Results 01/28/19 06:45: Iron 57 L, TIBC 112 L, Iron Saturation 50.9, Ferritin 1035 H 01/28/19 11:06: POC Glucose 238 H 01/28/19 14:00: Urine Creatinine 31.70 01/28/19 14:00: Ur Random Sodium 37 01/28/19 14:00: Urine Color Yellow, Urine Clarity Sl. Cloudy, Urine pH 6.0, Ur Specific [place] 1.010, Urine Protein 100 H, Urine Glucose (UA) Normal, Urine Ketones Negative, Urine Occult Blood 250 H, Urine Nitrite Negative, Urine Bilirubin Negative, Urine Urobilinogen Normal, Ur Leukocyte Esterase 500 H, Urine RBC 25-50 SEEN, Urine WBC 50-100 SEEN, Ur Squamous Epith Cells 0-5 SEEN, Urine Bacteria 2+, Urine Mucus 0 SEEN 01/28/19 16:36: POC Glucose 186 H 01/28/19 21:39: POC Glucose 211 H 01/29/19 06:10: WBC 9.5, RBC 2.62 L, Hgb 7.3 L, Hct 23.5 L, MCV 89.7, MCH 27.9, MCHC 31.1 L, RDW Std Deviation 49.1 H, RDW Coeff of Raji 15.1 H, Plt Count 295, MPV 9.3, Immature Gran % (Auto) 1.500 H, Neut % (Auto) 58.0, Lymph % (Auto) 17.4 L, [place] % (Auto) 11.9 H, Eos % (Auto) 10.9 H, Baso % (Auto) 0.3, Absolute Neuts (auto) 5.5, Absolute Lymphs (auto) 1.65, Nucleated RBC % 0 01/29/19 06:10: Sodium 132 L, Potassium 4.5, Chloride 104, Carbon Dioxide 16.0 L , Anion Gap 12, BUN 106 H*, Creatinine 3.79 H, Estim Creat Clear Calc 17.39, Est GFR (MDRD) Af Amer 20 L, Est GFR (MDRD) Non-Af 17 L, BUN/Creatinine Ratio 28.0 H , Glucose 133 H, Calcium 7.6 L 01/29/19 06:40: POC Glucose 130 H Current Medications Acetaminophen (Tylenol) 650 mg PO Q6H PRN PRN PRN Reason: Pain Score 1-3/Temp > 100.7 F Last Admin: 01/28/19 21:45 Dose: 650 mg Documented by: Al Hydroxide/Mg Hydroxide (Mylanta Ii) 30 ml PO Q6H PRN PRN PRN Reason: Gastric Burning Albuterol Sulfate (Ventolin Aerosols) 2.5 mg INHALATION Q2H PRN PRN PRN Reason: SOB/Wheezing Last Admin: 01/29/19 09:59 Dose: 2.5 mg Documented by: Ascorbic Acid (Vitamin C) 1,000 mg PO BID [facility] Last Admin: 01/29/19 09:16 Dose: 1,000 mg Documented by: Aspirin (Aspirin, Baby) 81 mg PO DAILY@0800 [facility] Last Admin: 01/29/19 09:17 Dose: 81 mg Documented by: Atorvastatin Calcium (Lipitor) 10 mg PO QHS [facility] Last Admin: 01/28/19 21:46 Dose: 10 mg Documented by: Colesevelam HCl (Welchol) 625 mg PO BID [facility] Last Admin: 01/29/19 09:16 Dose: 625 mg Documented by: [facility]ous [facility]) [facility] Last Admin: 01/29/19 09:17 Dose: 325 mg Documented by: Gabapentin (Neurontin) 300 mg PO QHS [facility] Last Admin: 01/28/19 21:47 Dose: 300 mg Documented by: Glucagon () 1 mg IM .X1 PRN PRN Reason: Hypoglycemia Guaifenesin (Robitussin) 20 ml PO Q4H PRN PRN PRN Reason: COUGH Sodium Chloride () 250 mls @ 15 mls/hr IV .[id number] PRN PRN Reason: Saline Flush Sodium Chloride () 250 mls @ 15 mls/hr IV .[id number] PRN PRN Reason: Additional IVPB Infusion Dextrose (Dextrose 10%-Water) 250 mls @ 999 mls/hr IV .Q16M PRN; Protocol PRN Reason: HYPOGLYCEMIA Sodium Chloride () 1,000 mls @ 100 mls/hr IV .Q10H [facility] Last Admin: 01/29/19 02:07 Dose: 100 mls/hr Documented by: Insulin Human Lispro (Humalog Kwikpen (Bkc)) 0 unit SC [facility]; Protocol Last Admin: 12/20/19 06:43 Dose: Not Given Documented by: Levothyroxine Sodium (Synthroid) 25 mcg PO DAILY@0600 [facility] Last Admin: 01/29/19 06:42 Dose: 25 mcg Documented by: Melatonin (Melatonin) 3 mg PO QHS PRN PRN PRN Reason: INSOMNIA Metoprolol Tartrate (Lopressor (Beta Roxy)) 25 mg PO BID [facility] Last Admin: 01/29/19 09:17 Dose: Not Given Documented by: Morphine Sulfate () 2 mg IV Q3H PRN PRN PRN Reason: Pain Score 6-10/10 Multivitamins/Minerals (Multivitamin With Minerals) 1 tablet PO DAILY@0800 [facility] Last Admin: 01/29/19 09:17 Dose: 1 tablet Documented by: Nitroglycerin (Nitrostat) 0.4 mg SUBLINGUAL Q5M PRN PRN Reason: CARDIAC/CHEST PAIN Ondansetron HCl (Zofran) 4 mg IV Q8H PRN PRN PRN Reason: NAUSEA/VOMITING Oxycodone HCl (Oxyir) 5 mg PO Q4H PRN PRN PRN Reason: Pain Score 4-5/10 Pantoprazole Sodium (Protonix) 40 mg PO DAILY [facility] Last Admin: 01/29/19 09:17 Dose: 40 mg Documented by: Polyethylene Glycol (Miralax) 17 gm PO DAILY PRN PRN PRN Reason: Constipation Senna/Docusate Sodium (Senokot-S, Itzel-Colace) 2 tablet PO BID PRN PRN PRN Reason: Constipation Sodium Bicarbonate (Sodium Bicarbonate) 1,300 mg PO TID [facility] Last Admin: 01/29/19 06:42 Dose: 1,300 mg Documented by: Sodium Chloride () 10 - 40 ml IV UD PRN PRN Reason: SALINE FLUSH Last Admin: 01/28/19 16:40 Dose: 10 ml Documented by: Sucralfate (Carafate) 1 gm PO 1HR_ACHS [facility] Last Admin: 01/29/19 06:42 Dose: 1 gm Documented by: STROKE Vital Signs/Narrative: Vital Signs Temp Pulse Resp BP Pulse Ox 01/29/19 09:59 108 H 16 01/29/19 09:07 97.3 F L 107 H 16 96/52 L 98 01/29/19 06:59 105 H Medical Necessity - Tobacco Use Smoking Status: Never smoker Assessment/Plan All Active Problems (Last Reviewed 07/27/18 @ 13:58 by Kaleigh Braden PA-C) Solitary kidney (Acute) Acute kidney injury on CKD stage III (Acute) Blister of left leg without infection (Acute) Hypotension (Acute) Probable sepsis (Acute) Infected pressure ulcer (Acute) Abdominal pain (Acute) Acute kidney injury (Acute) Septic shock (Acute) Pressure ulcer of sacral region, stage 3 (Acute) Scrotal ulcer (Acute) Complicated UTI (urinary tract infection) (Acute) Constipation (Acute) Pressure ulcer of perianal region (Resolved) Pressure ulcer of buttock (Resolved) UTI (urinary tract infection) (Acute) 1. URSZULA with hyperkalemia * patient does have a solitary right kidney * Cr is 3.79 today, with a baseline of 0.8 * hyperkalemia has resolved. * renal USG showed severe left renal cortical atrophy and no hydronephrosis. * Nephrology on board. * Urinalysis showed 2+ urine bacteria with 5200 WBCs. * Patient however has chronic active colonization of his urine likely due to the suprapubic catheter in place. * Will hold off on treatment for now as he is not symptomatic has no leukocytosis. * * 2. Acute on chronic anemia * Hb today is 7.3, was 7.6 on admission * Baseline hemoglobin is around 9.4. * Iron panel indicated of anemia of chronic disease. * Did have an incomplete colonoscopy last year and was recommended that he has a follow-up colonoscopy but that has not been done. * Stool for occult blood ordered but patient has not had any bowel movements for the past 4 days. * Will consult general surgery. * 3. 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 Chronic decubitus ulcers * present on admission. Stage 3 ulcers over buttocks and coccyx * has paraplegia * wound care on board * 5. Type 2 diabetes mellitus: On insulin sliding scale. Accu-Cheks AC at bedtime. Home metformin held on account of kidney injury. 6. Hypertension hyperlipidemia: On statin and metoprolol as well as amlodipine. Amlodipine held on account of low blood pressure. 7. Hypothyroidism: On Synthroid DVT prophylaxis; cannot use SCDs on account of right hip disarticulation and left knee amputation. Unable to anticoagulate on account of anemia. Code Visit Inpatient E&M: 97278 Subs Hosp L3
[2019-01-29] MEDS: Insulin Lispro 100 UNIT/ML INSULN.PEN SC ×2 (11:29→21:14)
[2019-01-29 11:55] LABS: Bedside Glucose 202 mg/dL (70-110)
--- NOTE | 2019-01-29 13:22 | PCM.PN.REN ---
Patient Problems: Active and Suspected Problems (Last Reviewed 07/27/18 @ 13:58 by Kaleigh Braden PA-C) Solitary kidney (Acute) Acute kidney injury on CKD stage III (Acute) Subjective: No new complaints - Physical Exam Vitals/I&O's: Vital Signs Temp Pulse Resp BP Pulse Ox 97.3 F L 108 H 16 96/52 L 98 01/29/19 09:07 01/29/19 09:59 01/29/19 09:59 01/29/19 09:07 01/29/19 09:07 Oxygen Delivery Method Room Air Weight: 79.3 kg Body Mass Index (BMI) 25.0 Finger Stick Blood Glucose 160 Intake and Output for Last 24 Hours 01/27/19 01/28/19 01/29/19 23:59 23:59 23:59 Intake Total 500 / 980 3440.0 / 3940.0 2743.33 / 2743.33 Output Total 1900 / 1900 325 / 325 Balance 500 / -20 1540.0 / 2040.0 2418.33 / 2418.33 General: Alert, Oriented x3, Cooperative HEENT: Atraumatic, PERRLA, EOMI, Normocephalic Neck: Supple, No JVD, Negative Carotid Bruits Lungs: Clear to auscultation, Normal air movement Cardiovascular: Regular rate, No murmurs Abdomen: Bowel Sounds Present, Soft, Non Tender Extremities: No edema, Capillary Refill Less than 3 Seconds Skin: No rashes, No breakdown Musculoskeletal: No Tenderness to Palpation of Joints or Extremities Neurological: Cranial nerves II-XII grossly intact Psych/Mental Status: Normal Affect, Appropriate Laboratory Results 01/28/19 06:45: Iron 57 L, TIBC 112 L, Iron Saturation 50.9, Ferritin 1035 H 01/28/19 14:00: Urine Creatinine 31.70 01/28/19 14:00: Ur Random Sodium 37 01/28/19 14:00: Urine Color Yellow, Urine Clarity Sl. Cloudy, Urine pH 6.0, Ur Specific [place] 1.010, Urine Protein 100 H, Urine Glucose (UA) Normal, Urine Ketones Negative, Urine Occult Blood 250 H, Urine Nitrite Negative, Urine Bilirubin Negative, Urine Urobilinogen Normal, Ur Leukocyte Esterase 500 H, Urine RBC 25-50 SEEN, Urine WBC 50-100 SEEN, Ur Squamous Epith Cells 0-5 SEEN, Urine Bacteria 2+, Urine Mucus 0 SEEN 01/28/19 16:36: POC Glucose 186 H 01/28/19 21:39: POC Glucose 211 H 01/29/19 06:10: WBC 9.5, RBC 2.62 L, Hgb 7.3 L, Hct 23.5 L, MCV 89.7, MCH 27.9, MCHC 31.1 L, RDW Std Deviation 49.1 H, RDW Coeff of Raji 15.1 H, Plt Count 295, MPV 9.3, Immature Gran % (Auto) 1.500 H, Neut % (Auto) 58.0, Lymph % (Auto) 17.4 L, [place] % (Auto) 11.9 H, Eos % (Auto) 10.9 H, Baso % (Auto) 0.3, Absolute Neuts (auto) 5.5, Absolute Lymphs (auto) 1.65, Nucleated RBC % 0 01/29/19 06:10: Sodium 132 L, Potassium 4.5, Chloride 104, Carbon Dioxide 16.0 L, Anion Gap 12, BUN 106 H*, Creatinine 3.79 H, Estim Creat Clear Calc 17.39, Est GFR (MDRD) Af Amer 20 L, Est GFR (MDRD) Non-Af 17 L, BUN/Creatinine Ratio 28.0 H, Glucose 133 H, Calcium 7.6 L 01/29/19 06:40: POC Glucose 130 H 01/29/19 11:28: POC Glucose 202 H Current Medications Acetaminophen (Tylenol) 650 mg PO Q6H PRN PRN PRN Reason: Pain Score 1-3/Temp > 100.7 F Last Admin: 01/28/19 21:45 Dose: 650 mg Documented by: Al Hydroxide/Mg Hydroxide (Mylanta Ii) 30 ml PO Q6H PRN PRN PRN Reason: Gastric Burning Albuterol Sulfate (Ventolin Aerosols) 2.5 mg INHALATION Q2H PRN PRN PRN Reason: SOB/Wheezing Last Admin: 01/29/19 09:59 Dose: 2.5 mg Documented by: Ascorbic Acid (Vitamin C) 1,000 mg PO BID [facility] Last Admin: 01/29/19 09:16 Dose: 1,000 mg Documented by: Aspirin (Aspirin, Baby) 81 mg PO DAILY@0800 [facility] Last Admin: 01/29/19 09:17 Dose: 81 mg Documented by: Atorvastatin Calcium (Lipitor) 10 mg PO QHS [facility] Last Admin: 01/28/19 21:46 Dose: 10 mg Documented by: Colesevelam HCl (Welchol) 625 mg PO BID [facility] Last Admin: 01/29/19 09:16 Dose: 625 mg Documented by: Ferrous Sulfate (Ferrous Sulfate) 325 mg PO BIDCM [facility] Last Admin: 01/29/19 09:17 Dose: 325 mg Documented by: Gabapentin (Neurontin) 300 mg PO QHS [facility] Last Admin: 01/28/19 21:47 Dose: 300 mg Documented by: Glucagon () 1 mg IM .X1 PRN PRN Reason: Hypoglycemia Guaifenesin (Robitussin) 20 ml PO Q4H PRN PRN PRN Reason: COUGH Sodium Chloride () 250 mls @ 15 mls/hr IV .[id number] PRN PRN Reason: Saline Flush Sodium Chloride () 250 mls @ 15 mls/hr IV .[id number] PRN PRN Reason: Additional IVPB Infusion Dextrose (Dextrose 10%-Water) 250 mls @ 999 mls/hr IV .Q16M PRN; Protocol PRN Reason: HYPOGLYCEMIA Sodium Chloride () 1,000 mls @ 100 mls/hr IV .Q10H [facility] Last Admin: 01/29/19 11:30 Dose: 100 mls/hr Documented by: Insulin Human Lispro (Humalog Kwikpen (Bkc)) 0 unit SC [facility]; Protocol Last Admin: 01/29/19 11:29 Dose: 4 u Documented by: Levothyroxine Sodium (Synthroid) 25 mcg PO DAILY@0600 [facility] Last Admin: 01/29/19 06:42 Dose: 25 mcg Documented by: Melatonin (Melatonin) 3 mg PO QHS PRN PRN PRN Reason: INSOMNIA Metoprolol Tartrate (Lopressor (Beta Roxy)) 25 mg PO BID [facility] Last Admin: 01/29/19 09:17 Dose: Not Given Documented by: Morphine Sulfate () 2 mg IV Q3H PRN PRN PRN Reason: Pain Score 6-10/10 Multivitamins/Minerals (Multivitamin With Minerals) 1 tablet PO DAILY@0800 [facility] Last Admin: 01/29/19 09:17 Dose: 1 tablet Documented by: Nitroglycerin (Nitrostat) 0.4 mg SUBLINGUAL Q5M PRN PRN Reason: CARDIAC/CHEST PAIN Ondansetron HCl (Zofran) 4 mg IV Q8H PRN PRN PRN Reason: NAUSEA/VOMITING Oxycodone HCl (Oxyir) 5 mg PO Q4H PRN PRN PRN Reason: Pain Score 4-5/10 Pantoprazole Sodium (Protonix) 40 mg PO DAILY [facility] Last Admin: 01/29/19 09:17 Dose: 40 mg Documented by: Polyethylene Glycol (Miralax) 17 gm PO DAILY PRN PRN PRN Reason: Constipation Senna/Docusate Sodium (Senokot-S, Itzel-Colace) 2 tablet PO BID PRN PRN PRN Reason: Constipation Sodium Bicarbonate (Sodium Bicarbonate) 1,300 mg PO TID [facility] Last Admin: 01/29/19 06:42 Dose: 1,300 mg Documented by: Sodium Chloride () 10 - 40 ml IV UD PRN PRN Reason: SALINE FLUSH Last Admin: 01/28/19 16:40 Dose: 10 ml Documented by: Sucralfate (Carafate) 1 gm PO 1HR_ACHS [facility] Last Admin: 01/29/19 11:30 Dose: 1 gm Documented by: Medical Necessity - Tobacco Use Smoking Status: Never smoker Assessment/Plan All Active Problems (Last Reviewed 07/27/18 @ 13:58 by Kaleigh Braden PA-C) Solitary kidney (Acute) Acute kidney injury on CKD stage III (Acute) Blister of left leg without infection (Acute) Hypotension (Acute) Probable sepsis (Acute) Infected pressure ulcer (Acute) Abdominal pain (Acute) Acute kidney injury (Acute) Septic shock (Acute) Pressure ulcer of sacral region, stage 3 (Acute) Scrotal ulcer (Acute) Complicated UTI (urinary tract infection) (Acute) Constipation (Acute) Pressure ulcer of perianal region (Resolved) Pressure ulcer of buttock (Resolved) UTI (urinary tract infection) (Acute) Acute renal failure. Baseline unknown Hyperkalemia. Potassium levels are acceptable. Renal ultrasound with atrophic left kidney which is not new. Right kidney has been draining okay Urine analysis consistent with UTI Called Wanda sanchez. His baseline creatinine was 1.2 as of January 14. Slowly increased by the end of hospitalization over there. Apparently he had several ulcer at the site of ileal conduit and he ended up having a Lozano catheter placed at that time. Continue fluids for 1 more day. Continue oral bicarbonate.
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
--- NOTE | 2019-01-29 13:56 | RAD_ITS ---
STUDY: X-RAY - ABDOMEN/PELVIS REASON FOR EXAM: Male, 73 years old. non functioning colostomy stoma TECHNIQUE: AP supine and upright views of the abdomen and pelvis. COMPARISON: Prior abdomen of July 12, 2018 FINDINGS: Normal visualized lung bases. Diffuse increase in intestinal bowel gas which appears to be mostly colon with a moderate amount of stool. There is no demonstrated free abdominal air. Negative for gross organomegaly. Normal soft tissue structures. Normal visualized osseous structures. RAD/Abd Decub and/or Erect(Portabl IMPRESSION: Moderate general increase in colonic bowel gas and moderate stool without other acute abdominal or pelvic findings. Electronically Signed: Ximena Jain MD at 17:29 EST , Service support ,
[2019-01-29 17:56] LABS: Bedside Glucose 188 mg/dL (70-110)
--- NOTE | 2019-01-29 18:28 | NURSING ---
catheter flushed at this time w/ 60cc sterile water.
[2019-01-29] MEDS: 0.9% Saline Lock 10 ML Syringe IV (18:31)
[2019-01-29] MEDS: 0.9% Normal Saline 1,000 ML 999 ML IV (18:31)
--- NOTE | 2019-01-29 18:50 | NURSING ---
POSTPARTUM NURSE called out stating patient c/o of SOB following PM hygiene care. Vitals assessed at this time. Patient denies lightheadedness/dizziness. Guided patient through relaxing his breathing and he stated he felt better.
[2019-01-29] MEDS: Bisacodyl 5 MG Tablet 10 MG PO (19:42)
[2019-01-29] MEDS: Acetaminophen 325 MG Tablet 650 MG PO (21:13)
[2019-01-29] MEDS: Gabapentin 300 MG Capsule PO (21:13)
[2019-01-29] MEDS: Atorvastatin Calcium 10 MG Tablet PO (21:14)
[2019-01-29] MEDS: 0.9% Normal Saline 1,000 ML 150 ML IV (22:29)
[2019-01-29 22:31] LABS: Bedside Glucose 200 mg/dL (70-110)
[2019-01-30] VITALS (15 sets, daily range): BP systolic 93–124; BP diastolic 50–57; PULSE 96–106; RESP 18–24; TEMP 35.9–36.4; O2SAT 93–98
[2019-01-30 01:46] LABS: Bedside Glucose 131 mg/dL (70-110)
--- NOTE | 2019-01-30 01:55 | RAD_ITS ---
STUDY: X-RAY CHEST REASON FOR EXAM: Male, 73 years old. SOB TECHNIQUE: Shortness of breath. COMPARISON: 07/26/2018. FINDINGS: There is new interval appearance of a left-sided pleural effusion with some near complete opacification of the left lung field. There is a abrupt obliteration of the left bronchus which may indicate left lower lobe collapse. There is increased density in the right perihilar region with fullness of markings which may indicate perihilar pneumonia versus congestive heart failure. Cardiac size could not be assessed due to left-sided effusion. Normal visualized mediastinum and galdino. Suboptimally visualized aortic arch and descending thoracic aorta. Multiple left-sided fracture of the left shoulder and clavicle. Normal visualized ribs, clavicles, and shoulders. There is no demonstrated abnormality of the visualized soft tissue structures of the upper abdomen. RAD/Chest 1 View (Portable) IMPRESSION: Left-sided pleural effusion with possible left lower lobe collapse. If indicated, follow-up with bronchoscopy or CT chest may further characterize these findings. Asymmetric congestive heart failure versus right perihilar pneumonia. Electronically Signed: Deja Ford MD at 2:18 EST , Service support ,
[2019-01-30] MEDS: Morphine 2 MG/ML Syringe IV (01:57)
[2019-01-30] MEDS: Albuterol 2.5 MG/3 ML VIAL.NEB. INHALATION (02:09)
--- NOTE | 2019-01-30 02:33 | PCM.PN.BLA ---
Progress Note Nurse reported that patient felt short of breath and had crackles. Instructed nurse to tell patient to use incentive spirometer. Chest x-ray ordered. It showed left pleural effusion with significant opacity of left lung. Will give Lasix 40 mg IV x1. Will stop IV fluids. Will consult pulmonology. Of note patient had URSZULA and nephrology is following. STROKE Vital Signs/Narrative: Vital Signs Temp Pulse Resp BP Pulse Ox 01/30/19 01:21 96.6 F L 106 H 20 H 104/56 L 96 01/29/19 23:00 108 H
[2019-01-30] MEDS: Furosemide 40 MG/4 ML Vial IV (02:39)
--- NOTE | 2019-01-30 05:24 | PCM.PN.SRG ---
Patient Problems: Active and Suspected Problems (Last Reviewed 07/27/18 @ 13:58 by Kaleigh Braden PA-C) Solitary kidney (Acute) Acute kidney injury on CKD stage III (Acute) Subjective: Pt notes SOB, being evaluated per Hospitalist. Left effusion/atelectasis AXRs yesterday showed no evidence for bowel obstruction--abundant air within the large bowel No stool per stoma, no abdominal pain, no nausea - Physical Exam Vitals/I&O's: Vital Signs Temp Pulse Resp BP Pulse Ox 97.4 F L 99 20 H 96/51 L 96 01/30/19 03:44 01/30/19 03:44 01/30/19 03:44 01/30/19 03:44 01/30/19 03:44 Oxygen Flow Rate (L/min) 2 Oxygen Delivery Method Nasal Cannula Weight: 174 lb 13.225 oz Body Mass Index (BMI) 25.0 Finger Stick Blood Glucose 160 Intake and Output for Last 24 Hours 01/28/19 01/29/19 01/30/19 23:59 23:59 23:59 Intake Total 3440.0 / 3940.0 4685.00 / 4685.00 Output Total 1900 / 1900 675 / 675 Balance 1540.0 / 2040.0 4010.00 / 4010.00 Abdomen: Soft, Non Tender, Bowel Sounds Not Present Laboratory Results 01/29/19 06:10: WBC 9.5, RBC 2.62 L, Hgb 7.3 L, Hct 23.5 L, MCV 89.7, MCH 27.9, MCHC 31.1 L, RDW Std Deviation 49.1 H, RDW Coeff of Raji 15.1 H, Plt Count 295, MPV 9.3, Immature Gran % (Auto) 1.500 H, Neut % (Auto) 58.0, Lymph % (Auto) 17.4 L, [place] % (Auto) 11.9 H, Eos % (Auto) 10.9 H, Baso % (Auto) 0.3, Absolute Neuts (auto) 5.5, Absolute Lymphs (auto) 1.65, Nucleated RBC % 0 01/29/19 06:10: Sodium 132 L, Potassium 4.5, Chloride 104, Carbon Dioxide 16.0 L, Anion Gap 12, BUN 106 H*, Creatinine 3.79 H, Estim Creat Clear Calc 17.39, Est GFR (MDRD) Af Amer 20 L, Est GFR (MDRD) Non-Af 17 L, BUN/Creatinine Ratio 28.0 H, Glucose 133 H, Calcium 7.6 L 01/29/19 06:40: POC Glucose 130 H 01/29/19 11:28: POC Glucose 202 H 01/29/19 17:03: POC Glucose 188 H 01/29/19 21:12: POC Glucose 200 H 01/30/19 01:40: POC Glucose 131 H Current Medications Acetaminophen (Tylenol) 650 mg PO Q6H PRN PRN PRN Reason: Pain Score 1-3/Temp > 100.7 F Last Admin: 01/29/19 21:13 Dose: 650 mg Documented by: Al Hydroxide/Mg Hydroxide (Mylanta Ii) 30 ml PO Q6H PRN PRN PRN Reason: Gastric Burning Albuterol Sulfate (Ventolin Aerosols) 2.5 mg INHALATION Q2H PRN PRN PRN Reason: SOB/Wheezing Last Admin: 01/30/19 02:09 Dose: 2.5 mg Documented by: Ascorbic Acid (Vitamin C) 1,000 mg PO BID [facility] Last Admin: 01/29/19 21:14 Dose: 1,000 mg Documented by: Aspirin (Aspirin, Baby) 81 mg PO DAILY@0800 [facility] Last Admin: 01/29/19 09:17 Dose: 81 mg Documented by: Atorvastatin Calcium (Lipitor) 10 mg PO QHS [facility] Last Admin: 01/29/19 21:14 Dose: 10 mg Documented by: Colesevelam HCl (Welchol) 625 mg PO BID [facility] Last Admin: 01/29/19 21:13 Dose: 625 mg Documented by: [facility]ous Sulf[facility] ([facility] S[facility]) [facility] Last Admin: 01/29/19 17:04 Dose: 325 mg Documented by: Gabapentin (Neurontin) 300 mg PO QHS [facility] Last Admin: 01/29/19 21:13 Dose: 300 mg Documented by: Glucagon () 1 mg IM .X1 PRN PRN Reason: Hypoglycemia Guaifenesin (Robitussin) 20 ml PO Q4H PRN PRN PRN Reason: COUGH Sodium Chloride () 250 mls @ 15 mls/hr IV .[id number] PRN PRN Reason: Saline Flush Sodium Chloride () 250 mls @ 15 mls/hr IV .[id number] PRN PRN Reason: Additional IVPB Infusion Dextrose (Dextrose 10%-Water) 250 mls @ 999 mls/hr IV .Q16M PRN; Protocol PRN Reason: HYPOGLYCEMIA Insulin Human Lispro (Humalog Kwikpen (Bkc)) 0 unit SC ACHS [facility]; Protocol Last Admin: 01/29/19 21:14 Dose: 4 u Documented by: Levothyroxine Sodium (Synthroid) 25 mcg PO DAILY@0600 [facility] Last Admin: 01/29/19 06:42 Dose: 25 mcg Documented by: Melatonin (Melatonin) 3 mg PO QHS PRN PRN PRN Reason: INSOMNIA Metoprolol Tartrate (Lopressor (Beta Roxy)) 25 mg PO BID [facility] Last Admin: 01/29/19 09:17 Dose: Not Given Documented by: Morphine Sulfate () 2 mg IV Q3H PRN PRN PRN Reason: Pain Score 6-10/10 Last Admin: 01/30/19 01:57 Dose: 2 mg Documented by: Multivitamins/Minerals (Multivitamin With Minerals) 1 tablet PO DAILY@0800 [facility] Last Admin: 01/29/19 09:17 Dose: 1 tablet Documented by: Nitroglycerin (Nitrostat) 0.4 mg SUBLINGUAL Q5M PRN PRN Reason: CARDIAC/CHEST PAIN Ondansetron HCl (Zofran) 4 mg IV Q8H PRN PRN PRN Reason: NAUSEA/VOMITING Oxycodone HCl (Oxyir) 5 mg PO Q4H PRN PRN PRN Reason: Pain Score 4-5/10 Pantoprazole Sodium (Protonix) 40 mg PO DAILY [facility] Last Admin: 01/29/19 09:17 Dose: 40 mg Documented by: Polyethylene Glycol (Miralax) 17 gm PO DAILY PRN PRN PRN Reason: Constipation Senna (Senokot) 2 tablet PO DAILY PRN PRN PRN Reason: CONSTIPATION Senna/Docusate Sodium (Senokot-S, Itzel-Colace) 2 tablet PO BID PRN PRN PRN Reason: Constipation Sodium Bicarbonate (Sodium Bicarbonate) 1,300 mg PO TID [facility] Last Admin: 01/29/19 21:14 Dose: 1,300 mg Documented by: Sodium Chloride () 10 - 40 ml IV UD PRN PRN Reason: SALINE FLUSH Last Admin: 01/29/19 18:31 Dose: 10 ml Documented by: Sucralfate (Carafate) 1 gm PO 1HR_ACHS [facility] Last Admin: 01/29/19 21:14 Dose: 1 gm Documented by: Medical Necessity - Tobacco Use Smoking Status: Never smoker Assessment/Plan All Active Problems (Last Reviewed 07/27/18 @ 13:58 by Kaleigh Braden PA-C) Solitary kidney (Acute) Acute kidney injury on CKD stage III (Acute) Blister of left leg without infection (Acute) Hypotension (Acute) Probable sepsis (Acute) Infected pressure ulcer (Acute) Abdominal pain (Acute) Acute kidney injury (Acute) Septic shock (Acute) Pressure ulcer of sacral region, stage 3 (Acute) Scrotal ulcer (Acute) Complicated UTI (urinary tract infection) (Acute) Constipation (Acute) Pressure ulcer of perianal region (Resolved) Pressure ulcer of buttock (Resolved) UTI (urinary tract infection) (Acute) Ileus No findings to suggest an acute GI bleed or acute surgical abdomen at this time Ongoing pulmonary and renal issues noted
[2019-01-30] MEDS: Sodium Bicarbonate 650 MG Tablet 1300 MG PO ×3 (06:49→21:39)
[2019-01-30] MEDS: 0.9% Saline Lock 10 ML Syringe IV (06:49)
[2019-01-30] MEDS: Sucralfate 1 GM Tablet PO ×4 (06:50→21:39)
[2019-01-30] MEDS: Levothyroxine 25 MCG TABLET PO (06:50)
[2019-01-30 06:58] LABS: Absolute Lymphocyte Count 1.02 X10^3/uL (0.83-4.51); Absolute Neutrophil Count 7.8 X10^3/uL (2.0-7.7); Basophil# 0.02 X10^3/uL; Basophil% 0.2 % (0-1); Eosinophil# 0.26 X10^3/uL; Eosinophils% 2.5 % (0-5); Hematocrit 24.1 % (40-54); Hemoglobin 7.4 g/dL (13.0-16.5); Lymphocyte # 1.02 X10^3/ul (4.0); Lymphocyte % 9.9 % (19-41); Mean Corp Hgb Conc 30.7 g/dL (32-36); Mean Corpuscular Hgb 27.7 pg (27.0-32.0); Mean Corpuscular Volume 90.3 fL (80-94); Mean Platelet Vol. 9.1 fl (6.2-12.0); Monocyte# 0.88 X10^3/uL; Monocyte% 8.6 % (0-10); NRBC Flagged by Analyzer 0 % (0-5); Platelet Count 301 K/mm3 (150-450); RBC Distribution Width CV 15.1 % (11.6-14.6); RBC Distribution Width SD 49.7 fl (35.1-43.9); Red Blood Count 2.67 M/mm3 (4.6-6.2); White Blood Count 10.3 K/mm3 (4.4-11.0)
[2019-01-30 07:01] LABS: Bedside Glucose 147 mg/dL (70-110)
[2019-01-30 07:26] LABS: Anion Gap 13 (5-15); BUN 104 mg/dL (7-18); BUN/Creat Ratio 27.8 RATIO (10-20); Calcium,Total 7.4 mg/dL (8.5-10.1); Chloride 104 mmol/L (98-107); Creatinine, Serum 3.74 mg/dL (0.70-1.30); EST Glomerular Filtration Rate 17 mL/min (>60); Est Glom Filt Rate - Afr Amer 20 mL/min (>60); Estimated Creatinine Clearance 17.62 ml/min; Glucose 148 mg/dL (74-106); Potassium 4.5 mmol/L (3.5-5.1); Sodium Level 132 mmol/L (136-145)
[2019-01-30] MEDS: 0.9% Normal Saline 1,000 ML 150 ML IV (08:01)
[2019-01-30] MEDS: Pantoprazole Sodium 40 MG Tablet PO (08:18)
[2019-01-30] MEDS: Ferrous Sulfate 325 MG Tablet PO ×2 (08:18→18:44)
[2019-01-30] MEDS: Ascorbic Acid 500 MG Tablet 1000 MG PO ×2 (08:18→21:41)
[2019-01-30] MEDS: Acetaminophen 325 MG Tablet 650 MG PO (08:18)
[2019-01-30] MEDS: Multivitamins,Ther W-Minerals Tablet 1 TABLET PO (08:18)
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
--- NOTE | 2019-01-30 08:40 | RAD_ITS ---
STUDY: X-RAY - ABDOMEN/PELVIS REASON FOR EXAM: Male, 73 years old. ABD PAIN AND DISTENSION. LTD EXAM D/T CLIN. COND, LTD ROM, ETC. TECHNIQUE: Multiple abdominal views are obtained. COMPARISON: None. FINDINGS: Normal visualized lung bases. There is mildly dilated large colonic loops of bowel without definitive air-fluid levels. There is no demonstrated free abdominal air. The visualized liver, spleen and kidneys are grossly normal in size and morphology. Normal soft tissue structures. Normal visualized osseous structures. RAD/Abd Inc Decub and/or Erect IMPRESSION: Prominent air within the colonic markings without definitive air fluid levels to suggest underlying ileus versus obstruction, clinically correlate. Electronically Signed: Saw Verdugo DO at 10:31 EST , Service support ,
[2019-01-30 09:18] LABS: BNP,B-Type NATRIURETIC PEPTIDE 241.7 pg/mL (0-100)
[2019-01-30] MEDS: Lactulose 20 GM/30 ML UDC 10 GM PO (09:51)
[2019-01-30] MEDS: Senna/Docusate Sodium 1 Tablet 2 TABLET PO (10:00)
[2019-01-30] MEDS: Polyethylene Glycol 3350 17 GM PACKET PO (11:25)
--- NOTE | 2019-01-30 11:45 | PCM.PN.HOSP ---
Patient Problems: Active and Suspected Problems (Last Reviewed 07/27/18 @ 13:58 by Kaleigh Braden PA-C) Solitary kidney (Acute) Acute kidney injury on CKD stage III (Acute) Subjective: Patient seen and examined. He complains of not feeling very well today. He was short of breath during the night and chest x-ray done showed large left pleural effusion. He also says he is not had a bowel movement yet despite being given laxatives to help with that yesterday. Labs and vitals reviewed. He is now on 3 L of oxygen. Creatinine is only 3.74. Sodium is 132. Hemoglobin today 7.4. He is in positive balance by 7.2 L since admission. Vitals/I&O's: Vital Signs Temp Pulse Resp BP Pulse Ox 97 F L 96 18 103/55 L 98 01/30/19 09:53 01/30/19 11:03 01/30/19 09:53 01/30/19 09:53 01/30/19 09:53 Oxygen Flow Rate (L/min) 3 Oxygen Delivery Method Room Air Weight: 174 lb 13.225 oz Body Mass Index (BMI) 25.0 Finger Stick Blood Glucose 160 Intake and Output for Last 24 Hours 01/28/19 01/29/19 01/30/19 23:59 23:59 23:59 Intake Total 3440.0 / 3940.0 4685.00 / 4685.00 1280 / 1280 Output Total 1900 / 1900 675 / 675 100 / 100 Balance 1540.0 / 2040.0 4010.00 / 4010.00 1180 / 1180 General: Alert, Oriented x3, Cooperative, No apparent distress HEENT: Atraumatic, PERRLA, EOMI, Normocephalic Oral: Moist Mucosa Neck: Supple, No JVD, Negative Carotid Bruits Lungs: C decreased breath sounds in left mid and lower lung [place], no wheezing or crackles. on 3L of oxygen Cardiovascular: Regular rate, Regular Rhythm, Normal S1, Normal S2, No murmurs Abdomen: Bowel Sounds Present, Soft, Non Tender, Non-Distended, No Hepato-splenomegaly, - - colostomy bag in place; suprapubic catheter Skin: - - right hip disarticulated, left AKA Musculoskeletal: No Tenderness to Palpation of Joints or Extremities Lymphatic: No Cervical, Supraclavicular, or Inguinal Adenopathy Neurological: Cranial nerves II-XII grossly intact Psych/Mental Status: Normal Affect, Appropriate, Alert and oriented to time, place, person, mood and affect Laboratory Results 01/29/19 11:28: POC Glucose 202 H 01/29/19 17:03: POC Glucose 188 H 01/29/19 21:12: POC Glucose 200 H 01/30/19 01:40: POC Glucose 131 H 01/30/19 06:37: WBC 10.3, RBC 2.67 L, Hgb 7.4 L, Hct 24.1 L, MCV 90.3, MCH 27.7, MCHC 30.7 L, RDW Std Deviation 49.7 H, RDW Coeff of Raji 15.1 H, Plt Count 301, MPV 9.1, Immature Gran % (Auto) 2.800 H, Neut % (Auto) 76.0 H, Lymph % (Auto) 9.9 L, [place] % (Auto) 8.6, Eos % (Auto) 2.5, Baso % (Auto) 0.2, Absolute Neuts (auto) 7.8 H, Absolute Lymphs (auto) 1.02, Nucleated RBC % 0 01/30/19 06:37: Sodium 132 L, Potassium 4.5, Chloride 104, Carbon Dioxide 15.0 L, Anion Gap 13, BUN 104 H*, Creatinine 3.74 H, Estim Creat Clear Calc 17.62, Est GFR (MDRD) Af Amer 20 L, Est GFR (MDRD) Non-Af 17 L, BUN/Creatinine Ratio 27.8 H, Glucose 148 H, Calcium 7.4 L 01/30/19 06:37: Troponin I < 0.015 01/30/19 06:37: B-Natriuretic Peptide 241.7 H 01/30/19 06:53: POC Glucose 147 H Diagnostic Data Renal Ultrasound 01/28/19 08:11 IMPRESSION: 1. No hydronephrosis. 2. Severe left renal cortical atrophy. 3. Bilateral simple renal cysts. Electronically Signed: Truman Perez MD ([place]) at 16:54 EST , Service support , Chest X-Ray 01/30/19 01:55 IMPRESSION: Left-sided pleural effusion with possible left lower lobe collapse. If indicated, follow-up with bronchoscopy or CT chest may further characterize these findings. Asymmetric congestive heart failure versus right perihilar pneumonia. Electronically Signed: Deja Ford MD at 2:18 EST , Service support , Abdomen X-Ray 01/30/19 08:40 IMPRESSION: Prominent air within the colonic markings without definitive air fluid levels to suggest underlying ileus versus obstruction, clinically correlate. Electronically Signed: Saw Verdugo DO at 10:31 EST , Service support , Current Medications Acetaminophen (Tylenol) 650 mg PO Q6H PRN PRN PRN Reason: Pain Score 1-3/Temp > 100.7 F Last Admin: 01/30/19 08:18 Dose: 650 mg Documented by: Al Hydroxide/Mg Hydroxide (Mylanta Ii) 30 ml PO Q6H PRN PRN PRN Reason: Gastric Burning Albuterol Sulfate (Ventolin Aerosols) 2.5 mg INHALATION Q2H PRN PRN PRN Reason: SOB/Wheezing Last Admin: 01/30/19 02:09 Dose: 2.5 mg Documented by: Ascorbic Acid (Vitamin C) 1,000 mg PO BID [facility] Last Admin: 01/30/19 08:18 Dose: 1,000 mg Documented by: Atorvastatin Calcium (Lipitor) 10 mg PO QHS [facility] Last Admin: 01/29/19 21:14 Dose: 10 mg Documented by: Colesevelam HCl (Welchol) 625 mg PO BID [facility] Last Admin: 01/30/19 08:18 Dose: 625 mg Documented by: [facility]ous [facility]) [facility] Last Admin: 01/30/19 08:18 Dose: 325 mg Documented by: Gabapentin (Neurontin) 300 mg PO QHS [facility] Last Admin: 01/29/19 21:13 Dose: 300 mg Documented by: Glucagon () 1 mg IM .X1 PRN PRN Reason: Hypoglycemia Guaifenesin (Robitussin) 20 ml PO Q4H PRN PRN PRN Reason: COUGH Sodium Chloride () 250 mls @ 15 mls/hr IV .[id number] PRN PRN Reason: Saline Flush Sodium Chloride () 250 mls @ 15 mls/hr IV .[id number] PRN PRN Reason: Additional IVPB Infusion Dextrose (Dextrose 10%-Water) 250 mls @ 999 mls/hr IV .Q16M PRN; Protocol PRN Reason: HYPOGLYCEMIA Insulin Human Lispro (Humalog Kwikpen (Bkc)) 0 unit SC ACHS [facility]; Protocol Last Admin: 01/30/19 11:25 Dose: Not Given Documented by: Levothyroxine Sodium (Synthroid) 25 mcg PO DAILY@0600 [facility] Last Admin: 01/30/19 06:50 Dose: 25 mcg Documented by: Melatonin (Melatonin) 3 mg PO QHS PRN PRN PRN Reason: INSOMNIA Metoprolol Tartrate (Lopressor (Beta Roxy)) 25 mg PO BID [facility] Last Admin: 01/29/19 09:17 Dose: Not Given Documented by: Morphine Sulfate () 2 mg IV Q3H PRN PRN PRN Reason: Pain Score 6-10/10 Last Admin: 01/30/19 01:57 Dose: 2 mg Documented by: Multivitamins/Minerals (Multivitamin With Minerals) 1 tablet PO DAILY@0800 [facility] Last Admin: 01/30/19 08:18 Dose: 1 tablet Documented by: Nitroglycerin (Nitrostat) 0.4 mg SUBLINGUAL Q5M PRN PRN Reason: CARDIAC/CHEST PAIN Ondansetron HCl (Zofran) 4 mg IV Q8H PRN PRN PRN Reason: NAUSEA/VOMITING Oxycodone HCl (Oxyir) 5 mg PO Q4H PRN PRN PRN Reason: Pain Score 4-5/10 Pantoprazole Sodium (Protonix) 40 mg PO DAILY [facility] Last Admin: 01/30/19 08:18 Dose: 40 mg Documented by: Polyethylene Glycol (Miralax) 17 gm PO DAILY PRN PRN PRN Reason: Constipation Last Admin: 01/30/19 11:25 Dose: 17 gm Documented by: Senna (Senokot) 2 tablet PO DAILY PRN PRN PRN Reason: CONSTIPATION Senna/Docusate Sodium (Senokot-S, Itzel-Colace) 2 tablet PO BID PRN PRN PRN Reason: Constipation Last Admin: 01/30/19 10:00 Dose: 2 tablet Documented by: Sodium Bicarbonate (Sodium Bicarbonate) 1,300 mg PO TID [facility] Last Admin: 01/30/19 06:49 Dose: 1,300 mg Documented by: Sodium Chloride () 10 - 40 ml IV UD PRN PRN Reason: SALINE FLUSH Last Admin: 01/30/19 06:49 Dose: 10 ml Documented by: Sucralfate (Carafate) 1 gm PO 1HR_ACHS [facility] Last Admin: 01/30/19 11:25 Dose: 1 gm Documented by: STROKE Vital Signs/Narrative: Vital Signs Temp Pulse Resp BP Pulse Ox 01/30/19 11:03 96 01/30/19 09:53 97 F L 98 18 103/55 L 98 01/30/19 07:55 97.2 F L 101 H 18 93/52 L 96 Medical Necessity - Tobacco Use Smoking Status: Never smoker Assessment/Plan All Active Problems (Last Reviewed 07/27/18 @ 13:58 by Kaleigh Braden PA-C) Solitary kidney (Acute) Acute kidney injury on CKD stage III (Acute) Blister of left leg without infection (Acute) Hypotension (Acute) Probable sepsis (Acute) Infected pressure ulcer (Acute) Abdominal pain (Acute) Acute kidney injury (Acute) Septic shock (Acute) Pressure ulcer of sacral region, stage 3 (Acute) Scrotal ulcer (Acute) Complicated UTI (urinary tract infection) (Acute) Constipation (Acute) Pressure ulcer of perianal region (Resolved) Pressure ulcer of buttock (Resolved) UTI (urinary tract infection) (Acute) 1. URSZULA with hyperkalemia patient does have a solitary right kidney Cr is only 3.74 today, was 3,.79 on admission. Baseline CR is 0.8 in positive balance by ~ 7.2L since admission; Cr has also barely trended down. hyperkalemia has resolved in light of newly developed pleural effusion, and minimal improvement in kidney function, I think patient will benefit from dialysis. Nephrology informed and agree. For dialysis today 2. Acute hypoxic respiratory insufficiency due to left sided pleural effusion Patient became short of breath yesterday requiring initiation of oxygen. Now on 3 L of oxygen. Chest x-ray done showed interval development of left pleural effusion with near complete opacification of the left lung field with abrupt obliteration of the left bronchus which may indicate left lower lobe collapse. Pulmonology consulted. Patient to have dialysis today to see if this will help with left-sided pleural effusion as effusion developed only since he started receiving IV fluids during this admission for URSZULA. Titrate oxygen to maintain saturation above 90%. 3. Left pleural effusion: As under 2. 4. Acute on chronic anemia Hb today is still 7.3, was 7.6 on admission Baseline hemoglobin is around 9.4. Iron panel indicated of anemia of chronic disease. Did have an incomplete colonoscopy last year and was recommended that he has a follow-up colonoscopy but that has not been done. Stool for occult blood ordered but patient has not had any bowel movements for the past 4 days. general surgery consulted: plan for conservative management since there is no overt evidence of bleeding stool for occult blood ordered and is pending 5. Constipation patient hasnt had a bowel movement in several days. is on miralax, senokot and dulcolax, but has still not had a bowel movement will give lactulose today KUB done today:mildly dilated large colonic loops of bowel without definite air fluid levels, with no demonstrated free abdominal air. 6. 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 Chronic decubitus ulcers present on admission. Stage 3 ulcers over buttocks and coccyx has paraplegia wound care on board 8. Type 2 diabetes mellitus: On insulin sliding scale. Accu-Cheks AC at bedtime. Home metformin held on account of kidney injury. 9. Hypertension hyperlipidemia: On statin and metoprolol as well as amlodipine. Amlodipine and metoprolol held on account of low blood pressure. 10. Hypothyroidism: On Synthroid DVT prophylaxis; cannot use SCDs on account of right hip disarticulation and left knee amputation. Unable to anticoagulate on account of anemia. Code status: Full code Patient counseled extensively about different types of CODE STATUS including full code, DNR CCA and DNR CCA. Patient elects to be full code. Total [id number] time 16 minutes. Code Visit Inpatient E&M: 28227 Subs Hosp L3 Procedures: 74469 Advncd Care Plan 30 Min
--- NOTE | 2019-01-30 12:09 | PCM.PN.REN ---
Patient Problems: Active and Suspected Problems (Last Reviewed 07/27/18 @ 13:58 by Kaleigh Braden PA-C) Solitary kidney (Acute) Acute kidney injury on CKD stage III (Acute) Subjective: doing well - Physical Exam Vitals/I&O's: Vital Signs Temp Pulse Resp BP Pulse Ox 97 F L 96 18 103/55 L 98 01/30/19 09:53 01/30/19 11:03 01/30/19 09:53 01/30/19 09:53 01/30/19 09:53 Oxygen Flow Rate (L/min) 3 Oxygen Delivery Method Room Air Weight: 79.3 kg Body Mass Index (BMI) 25.0 Finger Stick Blood Glucose 160 Intake and Output for Last 24 Hours 01/28/19 01/29/19 01/30/19 23:59 23:59 23:59 Intake Total 3440.0 / 3940.0 4685.00 / 4685.00 1460 / 1460 Output Total 1900 / 1900 675 / 675 225 / 225 Balance 1540.0 / 2040.0 4010.00 / 4010.00 1235 / 1235 General: Alert, Oriented x3, Cooperative HEENT: Atraumatic, PERRLA, EOMI, Normocephalic Neck: Supple, No JVD, Negative Carotid Bruits Lungs: Clear to auscultation, Normal air movement Cardiovascular: Regular rate, No murmurs Abdomen: Bowel Sounds Present, Soft, Non Tender Extremities: No edema, Capillary Refill Less than 3 Seconds Skin: No rashes, No breakdown Musculoskeletal: No Tenderness to Palpation of Joints or Extremities Neurological: Cranial nerves II-XII grossly intact Psych/Mental Status: Normal Affect, Appropriate Laboratory Results 01/29/19 17:03: POC Glucose 188 H 01/29/19 21:12: POC Glucose 200 H 01/30/19 01:40: POC Glucose 131 H 01/30/19 06:37: WBC 10.3, RBC 2.67 L, Hgb 7.4 L, Hct 24.1 L, MCV 90.3, MCH 27.7, MCHC 30.7 L, RDW Std Deviation 49.7 H, RDW Coeff of Raji 15.1 H, Plt Count 301, MPV 9.1, Immature Gran % (Auto) 2.800 H, Neut % (Auto) 76.0 H, Lymph % (Auto) 9.9 L, [place] % (Auto) 8.6, Eos % (Auto) 2.5, Baso % (Auto) 0.2, Absolute Neuts (auto) 7.8 H, Absolute Lymphs (auto) 1.02, Nucleated RBC % 0 01/30/19 06:37: Sodium 132 L, Potassium 4.5, Chloride 104, Carbon Dioxide 15.0 L, Anion Gap 13, BUN 104 H*, Creatinine 3.74 H, Estim Creat Clear Calc 17.62, Est GFR (MDRD) Af Amer 20 L, Est GFR (MDRD) Non-Af 17 L, BUN/Creatinine Ratio 27.8 H, Glucose 148 H, Calcium 7.4 L 01/30/19 06:37: Troponin I < 0.015 01/30/19 06:37: B-Natriuretic Peptide 241.7 H 01/30/19 06:53: POC Glucose 147 H Current Medications Acetaminophen (Tylenol) 650 mg PO Q6H PRN PRN PRN Reason: Pain Score 1-3/Temp > 100.7 F Last Admin: 01/30/19 08:18 Dose: 650 mg Documented by: Al Hydroxide/Mg Hydroxide (Mylanta Ii) 30 ml PO Q6H PRN PRN PRN Reason: Gastric Burning Albuterol Sulfate (Ventolin Aerosols) 2.5 mg INHALATION Q2H PRN PRN PRN Reason: SOB/Wheezing Last Admin: 01/30/19 02:09 Dose: 2.5 mg Documented by: Ascorbic Acid (Vitamin C) 1,000 mg PO BID [facility] Last Admin: 01/30/19 08:18 Dose: 1,000 mg Documented by: Atorvastatin Calcium (Lipitor) 10 mg PO QHS [facility] Last Admin: 01/29/19 21:14 Dose: 10 mg Documented by: Colesevelam HCl (Welchol) 625 mg PO BID [facility] Last Admin: 01/30/19 08:18 Dose: 625 mg Documented by: Ferrous Sulf[facility]) [facility] Last Admin: 01/30/19 08:18 Dose: 325 mg Documented by: Gabapentin (Neurontin) 300 mg PO QHS [facility] Last Admin: 01/29/19 21:13 Dose: 300 mg Documented by: Glucagon () 1 mg IM .X1 PRN PRN Reason: Hypoglycemia Guaifenesin (Robitussin) 20 ml PO Q4H PRN PRN PRN Reason: COUGH Sodium Chloride () 250 mls @ 15 mls/hr IV .[id number] PRN PRN Reason: Saline Flush Sodium Chloride () 250 mls @ 15 mls/hr IV .[id number] PRN PRN Reason: Additional IVPB Infusion Dextrose (Dextrose 10%-Water) 250 mls @ 999 mls/hr IV .Q16M PRN; Protocol PRN Reason: HYPOGLYCEMIA Insulin Human Lispro (Humalog Kwikpen (Bkc)) 0 unit SC ACHS [facility]; Protocol Last Admin: 01/30/19 11:25 Dose: Not Given Documented by: Levothyroxine Sodium (Synthroid) 25 mcg PO DAILY@0600 [facility] Last Admin: 01/30/19 06:50 Dose: 25 mcg Documented by: Melatonin (Melatonin) 3 mg PO QHS PRN PRN PRN Reason: INSOMNIA Metoprolol Tartrate (Lopressor (Beta Roxy)) 25 mg PO BID [facility] Last Admin: 01/29/19 09:17 Dose: Not Given Documented by: Morphine Sulfate () 2 mg IV Q3H PRN PRN PRN Reason: Pain Score 6-10/10 Last Admin: 01/30/19 01:57 Dose: 2 mg Documented by: Multivitamins/Minerals (Multivitamin With Minerals) 1 tablet PO DAILY@0800 [facility] Last Admin: 01/30/19 08:18 Dose: 1 tablet Documented by: Nitroglycerin (Nitrostat) 0.4 mg SUBLINGUAL Q5M PRN PRN Reason: CARDIAC/CHEST PAIN Ondansetron HCl (Zofran) 4 mg IV Q8H PRN PRN PRN Reason: NAUSEA/VOMITING Oxycodone HCl (Oxyir) 5 mg PO Q4H PRN PRN PRN Reason: Pain Score 4-5/10 Pantoprazole Sodium (Protonix) 40 mg PO DAILY [facility] Last Admin: 01/30/19 08:18 Dose: 40 mg Documented by: Polyethylene Glycol (Miralax) 17 gm PO DAILY PRN PRN PRN Reason: Constipation Last Admin: 01/30/19 11:25 Dose: 17 gm Documented by: Senna (Senokot) 2 tablet PO DAILY PRN PRN PRN Reason: CONSTIPATION Senna/Docusate Sodium (Senokot-S, Itzel-Colace) 2 tablet PO BID PRN PRN PRN Reason: Constipation Last Admin: 01/30/19 10:00 Dose: 2 tablet Documented by: Sodium Bicarbonate (Sodium Bicarbonate) 1,300 mg PO TID [facility] Last Admin: 01/30/19 06:49 Dose: 1,300 mg Documented by: Sodium Chloride () 10 - 40 ml IV UD PRN PRN Reason: SALINE FLUSH Last Admin: 01/30/19 06:49 Dose: 10 ml Documented by: Sucralfate (Carafate) 1 gm PO 1HR_ACHS [facility] Last Admin: 01/30/19 11:25 Dose: 1 gm Documented by: Medical Necessity - Tobacco Use Smoking Status: Never smoker Assessment/Plan All Active Problems (Last Reviewed 07/27/18 @ 13:58 by Kaleigh Braden PA-C) Solitary kidney (Acute) Acute kidney injury on CKD stage III (Acute) Blister of left leg without infection (Acute) Hypotension (Acute) Probable sepsis (Acute) Infected pressure ulcer (Acute) Abdominal pain (Acute) Acute kidney injury (Acute) Septic shock (Acute) Pressure ulcer of sacral region, stage 3 (Acute) Scrotal ulcer (Acute) Complicated UTI (urinary tract infection) (Acute) Constipation (Acute) Pressure ulcer of perianal region (Resolved) Pressure ulcer of buttock (Resolved) UTI (urinary tract infection) (Acute) Acute renal failure. Baseline unknown Hyperkalemia. Potassium levels are acceptable. BUN and creatinine are significantly higher. From history, it seems like she did have some renal failure and hyperkalemia even at [facility]. . On IV fluids Urine analysis is has white cells and red cells consistent with a catheter sample Reviewed renal ultrasound images. I do not see any hydronephrosis on the right side. Left side appears atrophic with few cysts. Will wait for final report. Stop amlodipine due to low blood pressure. We will follow thank you.
[2019-01-30 12:11] LABS: Bedside Glucose 120 mg/dL (70-110)
[2019-01-30] MEDS: Heparin 10,000 UNITS/10 ML Vial 1000 UNITS IV (14:20)
--- NOTE | 2019-01-30 14:22 | OP.PCM_ITS ---
Problem List (1) Acute kidney injury on CKD stage III Status: Acute Report of Operation Date of Procedure: 01/30/19 Pre-Operative Diagnosis: Acute kidney injury Post-Operative Diagnosis: Same Surgery/Procedure Performed:: Ultrasound-guided right IJ temporary dialysis catheter placement Description of Procedure: After the risks of bleeding, infection, pneumothorax were explained to the p atient and the patient gave informed consent the patient's right neck was prepped and draped in usual sterile fashion. The right IJ was located with ultrasound. The neck was injected with lidocaine and a small incision was made. Next using a needle under ultrasound guidance the right IJ was accessed and there was good drawback on the blood return. Next a guidewire was placed without resistance through this needle and then the needle was removed. Serial dilators were placed and then removed. The dialysis catheter was then placed over the guidewire and the guidewire was removed. Both ports were drawn back and flushed with good blood flow and no resistance. Next the catheter was sutured in place using the 3-0 nylon suture included in the kit. Dressing was applied. Both ports were then flushed with 1.5 cc of heparin. Patient's head was then elevated and pressure was applied. Patient tolerated the procedure well. Chest x-ray will be obtained. Grafts/Implants Used: 16 cm curved temporary dialysis catheter
--- NOTE | 2019-01-30 14:25 | RAD_ITS ---
STUDY: X-RAY CHEST REASON FOR EXAM: Male, 73 years old. TEMP DIALYSIS CATH INSERTION. TECHNIQUE: Single view of the chest was obtained COMPARISON: January 30, 2019 FINDINGS: Complete opacification of the left hemithorax may relate with underlying atelectasis, pleural effusion or consolidation. Right-sided central line in place. Congestive changes in the right lung. Osseous structures remain unchanged. IMPRESSION: Redemonstration of near-complete opacification of the left hemithorax. Differential considerations include large pleural effusion, atelectasis and/or underlying consolidation. Electronically Signed: Ag Soliz, at 16:10 EST Tel , Service support , RAD/CXR for Line Placement
[2019-01-30 16:11] LABS: Bedside Glucose 111 mg/dL (70-110)
[2019-01-30 17:10] LABS: Bedside Glucose 147 mg/dL (70-110)
--- NOTE | 2019-01-30 19:27 | DIALYSIS ---
Hemodialysis x 2.5 hours completed. Pt tolerated first tx well. Fluid balance -3000ml. Bp range 100-90s. Heparin 1000units/ml to close HD CVC ports to fill volume. See tx sheet for treatment details. Pt will receive second tx 01/31/19 per . Report given to YOVANY Reynoso. Pt stable
[2019-01-30 21:21] LABS: Bedside Glucose 133 mg/dL (70-110)
[2019-01-30] MEDS: Gabapentin 300 MG Capsule PO (21:39)
[2019-01-30] MEDS: Atorvastatin Calcium 10 MG Tablet PO (21:40)
[2019-01-31] VITALS (17 sets, daily range): BP systolic 103–120; BP diastolic 50–61; PULSE 96–105; RESP 16–20; TEMP 36.4–36.7; O2SAT 95–99
[2019-01-31] MEDS: Acetaminophen 325 MG Tablet 650 MG PO (00:12)
[2019-01-31] MEDS: MELATONIN 3 MG TABLET PO (02:30)
[2019-01-31] MEDS: Morphine 2 MG/ML Syringe IV (03:58)
--- NOTE | 2019-01-31 04:50 | RAD_ITS ---
STUDY: X-RAY CHEST REASON FOR EXAM: Male, 73 years old. LT PLEURAL EFFUSION TECHNIQUE: Single frontal view of the chest. COMPARISON: January 30, 2019 FINDINGS: There is stable near complete opacification of the left hemithorax. There is a hazy opacity within the right hemithorax. There is obscuration of the left cardiac border secondary to the pleural effusion and consolidation. There is a right-sided central venous catheter in place terminating within the expected region of the superior vena cava. Normal visualized thoracic spine. Normal visualized ribs, clavicles, and shoulders. There is no demonstrated abnormality of the visualized soft tissue structures of the upper abdomen. RAD/Chest 1 View (Portable) IMPRESSION: Stable near complete opacification of the left hemithorax consistent with an underlying effusion and associated consolidation. Right pleural effusion. Electronically Signed: Mimi Romero MD at 10:13 EST Tel , Service support ,
--- NOTE | 2019-01-31 06:04 | NURSING ---
Spoke to Dr. Alarcon this AM. States plan is to placed tunneled dialysis catheter on friday.
[2019-01-31 06:06] LABS: Bedside Glucose 99 mg/dL (70-110)
[2019-01-31] MEDS: Sodium Bicarbonate 650 MG Tablet 1300 MG PO ×3 (06:12→21:05)
[2019-01-31] MEDS: Levothyroxine 25 MCG TABLET PO (06:12)
[2019-01-31] MEDS: Sucralfate 1 GM Tablet PO ×4 (06:12→21:04)
--- NOTE | 2019-01-31 06:34 | PN.SURG_ITS ---
Patient Problems: Active and Suspected Problems (Last Reviewed 07/27/18 @ 13:58 by Kaleigh Braden PA-C) Solitary kidney (Acute) Acute kidney injury on CKD stage III (Acute) Subjective: Patient complaining of epigastric abdominal pain - Physical Exam Vitals/I&O's: Vital Signs Temp Pulse Resp BP Pulse Ox 97.5 F L 104 H 20 H 113/51 L 95 01/31/19 02:00 01/31/19 04:00 01/31/19 02:00 01/31/19 02:00 01/31/19 02:00 Oxygen Flow Rate (L/min) 2 Oxygen Delivery Method Nasal Cannula Weight: 174 lb 13.225 oz Body Mass Index (BMI) 25.0 Finger Stick Blood Glucose 160 Intake and Output for Last 24 Hours 01/29/19 01/30/19 01/31/19 23:59 23:59 23:59 Intake Total 4685.00 / 4685.00 1700 / 1900 440 / 440 Output Total 675 / 675 300 / 350 50 / 50 Balance 4010.00 / 4010.00 1400 / 1550 390 / 390 Abdomen: Bowel Sounds Present, Soft, Non Tender, Passing Flatus - Stool and flatus in his stomal bag Microbiology Past 72 Hours 01/30/19 Unknown Stool Stool Occult Blood (DWAYNE) - Final Occult Blood Positive Laboratory Results 01/30/19 06:37: WBC 10.3, RBC 2.67 L, Hgb 7.4 L, Hct 24.1 L, MCV 90.3, MCH 27.7, MCHC 30.7 L, RDW Std Deviation 49.7 H, RDW Coeff of Raji 15.1 H, Plt Count 301, MPV 9.1, Immature Gran % (Auto) 2.800 H, Neut % (Auto) 76.0 H, Lymph % (Auto) 9.9 L, [place] % (Auto) 8.6, Eos % (Auto) 2.5, Baso % (Auto) 0.2, Absolute Neuts (auto) 7.8 H, Absolute Lymphs (auto) 1.02, Nucleated RBC % 0 01/30/19 06:37: Sodium 132 L, Potassium 4.5, Chloride 104, Carbon Dioxide 15.0 L , Anion Gap 13, BUN 104 H*, Creatinine 3.74 H, Estim Creat Clear Calc 17.62, Est GFR (MDRD) Af Amer 20 L, Est GFR (MDRD) Non-Af 17 L, BUN/Creatinine Ratio 27.8 H , Glucose 148 H, Calcium 7.4 L 01/30/19 06:37: Troponin I < 0.015 01/30/19 06:37: B-Natriuretic Peptide 241.7 H 01/30/19 06:53: POC Glucose 147 H 01/30/19 11:23: POC Glucose 120 H 01/30/19 16:02: POC Glucose 111 H 01/30/19 16:56: POC Glucose 147 H 01/30/19 17:34: Hep Bs Antigen Pending, Hep Bs Antibody Pending 01/30/19 21:14: POC Glucose 133 H 01/31/19 05:59: POC Glucose 99 01/31/19 06:05: WBC Pending, RBC Pending, Hgb Pending, Hct Pending, MCV Pending, MCH Pending, MCHC Pending, RDW Std Deviation Pending, RDW Coeff of Raji Pending, Plt Count Pending, Neut % (Auto) Pending, Absolute Neuts (auto) Pending 01/31/19 06:05: Sodium Pending, Potassium Pending, Chloride Pending, Carbon Dioxide Pending, Anion Gap Pending, BUN Pending, Creatinine Pending, Est GFR (MDRD) Af Amer Pending, Est GFR (MDRD) Non-Af Pending, BUN/Creatinine Ratio Pending, Glucose Pending, Calcium Pending Current Medications Acetaminophen (Tylenol) 650 mg PO Q6H PRN PRN PRN Reason: Pain Score 1-3/Temp > 100.7 F Last Admin: 01/31/19 00:12 Dose: 650 mg Documented by: Al Hydroxide/Mg Hydroxide (Mylanta Ii) 30 ml PO Q6H PRN PRN PRN Reason: Gastric Burning Albuterol Sulfate (Ventolin Aerosols) 2.5 mg INHALATION Q2H PRN PRN PRN Reason: SOB/Wheezing Last Admin: 01/30/19 02:09 Dose: 2.5 mg Documented by: Ascorbic Acid (Vitamin C) 1,000 mg PO BID [facility] Last Admin: 01/30/19 21:41 Dose: 1,000 mg Documented by: Atorvastatin Calcium (Lipitor) 10 mg PO QHS [facility] Last Admin: 01/30/19 21:40 Dose: 10 mg Documented by: Colesevelam HCl (Welchol) 625 mg PO BID [facility] Last Admin: 01/30/19 21:39 Dose: 625 mg Documented by: [facility] Last Admin: 01/30/19 18:44 Dose: 325 mg Documented by: Gabapentin (Neurontin) 300 mg PO QHS [facility] Last Admin: 01/30/19 21:39 Dose: 300 mg Documented by: Glucagon () 1 mg IM .X1 PRN PRN Reason: Hypoglycemia Guaifenesin (Robitussin) 20 ml PO Q4H PRN PRN PRN Reason: COUGH Heparin Sodium (Porcine) () 2,500 units IV UD PRN PRN Reason: Dialysis Cath Heparin Flush Sodium Chloride () 250 mls @ 15 mls/hr IV .[id number] PRN PRN Reason: Saline Flush Sodium Chloride () 250 mls @ 15 mls/hr IV .[id number] PRN PRN Reason: Additional IVPB Infusion Dextrose (Dextrose 10%-Water) 250 mls @ 999 mls/hr IV .Q16M PRN; Protocol PRN Reason: HYPOGLYCEMIA Insulin Human Lispro (Humalog Kwikpen (Bkc)) 0 unit SC [facility]; Protocol Last Admin: 01/31/19 06:13 Dose: Not Given Documented by: Levothyroxine Sodium (Synthroid) 25 mcg PO DAILY@0600 [facility] Last Admin: 01/31/19 06:12 Dose: 25 mcg Documented by: Melatonin (Melatonin) 3 mg PO QHS PRN PRN PRN Reason: INSOMNIA Last Admin: 01/31/19 02:30 Dose: 3 mg Documented by: Metoprolol Tartrate (Lopressor (Beta Roxy)) 25 mg PO BID [facility] Last Admin: 01/29/19 09:17 Dose: Not Given Documented by: Morphine Sulfate () 2 mg IV Q3H PRN PRN PRN Reason: Pain Score 6-10/10 Last Admin: 01/31/19 03:58 Dose: 2 mg Documented by: Multivitamins/Minerals (Multivitamin With Minerals) 1 tablet PO DAILY@0800 [facility] Last Admin: 01/30/19 08:18 Dose: 1 tablet Documented by: Nitroglycerin (Nitrostat) 0.4 mg SUBLINGUAL Q5M PRN PRN Reason: CARDIAC/CHEST PAIN Ondansetron HCl (Zofran) 4 mg IV Q8H PRN PRN PRN Reason: NAUSEA/VOMITING Oxycodone HCl (Oxyir) 5 mg PO Q4H PRN PRN PRN Reason: Pain Score 4-5/10 Pantoprazole Sodium (Protonix) 40 mg PO DAILY [facility] Last Admin: 01/30/19 08:18 Dose: 40 mg Documented by: Polyethylene Glycol (Miralax) 17 gm PO DAILY PRN PRN PRN Reason: Constipation Last Admin: 01/30/19 11:25 Dose: 17 gm Documented by: Senna (Senokot) 2 tablet PO DAILY PRN PRN PRN Reason: CONSTIPATION Senna/Docusate Sodium (Senokot-S, Itzel-Colace) 2 tablet PO BID PRN PRN PRN Reason: Constipation Last Admin: 01/30/19 10:00 Dose: 2 tablet Documented by: Sodium Bicarbonate (Sodium Bicarbonate) 1,300 mg PO TID [facility] Last Admin: 01/31/19 06:12 Dose: 1,300 mg Documented by: Sodium Chloride () 10 - 40 ml IV UD PRN PRN Reason: SALINE FLUSH Last Admin: 01/30/19 06:49 Dose: 10 ml Documented by: Sodium Chloride () 10 ml IV UD PRN PRN Reason: Dialysis Catheter Flush Sucralfate (Carafate) 1 gm PO 1HR_ACHS [facility] Last Admin: 01/31/19 06:12 Dose: 1 gm Documented by: Medical Necessity - Tobacco Use Smoking Status: Never smoker Assessment/Plan All Active Problems (Last Reviewed 07/27/18 @ 13:58 by Kaleigh Braden PA-C) Solitary kidney (Acute) Acute kidney injury on CKD stage III (Acute) Blister of left leg without infection (Acute) Hypotension (Acute) Probable sepsis (Acute) Infected pressure ulcer (Acute) Abdominal pain (Acute) Acute kidney injury (Acute) Septic shock (Acute) Pressure ulcer of sacral region, stage 3 (Acute) Scrotal ulcer (Acute) Complicated UTI (urinary tract infection) (Acute) Constipation (Acute) Pressure ulcer of perianal region (Resolved) Pressure ulcer of buttock (Resolved) UTI (urinary tract infection) (Acute) Right IJ temporary dialysis catheter placed yesterday I will schedule for placement of tunneled dialysis catheters tomorrow. We will attempt a left internal jugular possible right internal jugular. Any dialysis treatment tomorrow will need to be arranged around the operating room schedule. His abdomen on clinical examination is very benign. Will add to his laboratory inspection. This patient would be a very high risk operative candidate. Will follow expectantly at this time. Marco A Alarcon M.D., F.A.C.S.
[2019-01-31 06:37] LABS: Absolute Lymphocyte Count 0.94 X10^3/uL (0.83-4.51); Absolute Neutrophil Count 5.8 X10^3/uL (2.0-7.7); Basophil# 0.04 X10^3/uL; Basophil% 0.5 % (0-1); Eosinophil# 1.13 X10^3/uL; Eosinophils% 12.9 % (0-5); Hemoglobin 7.3 g/dL (13.0-16.5); Lymphocyte # 0.94 X10^3/ul (4.0); Lymphocyte % 10.7 % (19-41); Mean Corp Hgb Conc 31.7 g/dL (32-36); Mean Corpuscular Hgb 28.2 pg (27.0-32.0); Mean Corpuscular Volume 88.8 fL (80-94); Mean Platelet Vol. 9.2 fl (6.2-12.0); Monocyte# 0.75 X10^3/uL; Monocyte% 8.6 % (0-10); NRBC Flagged by Analyzer 0 % (0-5); Neutrophil # 5.77 X10^3/uL (2.7-7.7); Neutrophil % 65.9 % (47-70); Platelet Count 286 K/mm3 (150-450); RBC Distribution Width CV 15.6 % (11.6-14.6); RBC Distribution Width SD 50.2 fl (35.1-43.9); Red Blood Count 2.59 M/mm3 (4.6-6.2); White Blood Count 8.8 K/mm3 (4.4-11.0)
[2019-01-31 07:02] LABS: ALB/GLOB Ratio 0.4 RATIO (0.9-2.4); AST(SGOT) 20 U/L (15-37); Alanine Aminotransfer ALT/SGPT 59 U/L (16-61); Albumin, Serum 1.6 g/dL (3.2-5.0); Alkaline Phosphatase 81 U/L (45-117); Anion Gap 10 (5-15); BUN 63 mg/dL (7-18); Calcium,Total 7.6 mg/dL (8.5-10.1); Chloride 103 mmol/L (98-107); Creatinine, Serum 2.63 mg/dL (0.70-1.30); EST Glomerular Filtration Rate 25 mL/min (>60); Est Glom Filt Rate - Afr Amer 31 mL/min (>60); Estimated Creatinine Clearance 25.06 ml/min; Globulin 3.6 g/dL (2.2-4.2); Glucose 93 mg/dL (74-106); Lipase 66 U/L (73-393); Protein, Total 5.2 g/dL (6.4-8.2); Sodium Level 135 mmol/L (136-145)
--- NOTE | 2019-01-31 07:04 | PN_ITS ---
Patient Problems: Active and Suspected Problems (Last Reviewed 07/27/18 @ 13:58 by Kaleigh Braden PA-C) Solitary kidney (Acute) Acute kidney injury on CKD stage III (Acute) Subjective: The patient was seen and examined at the bedside this morning. Events from the last 24 hours have been reviewed. The patient is currently afebrile, hemodynamically stable and maintaining appropriate oxygen saturations on 2 L/min via nasal cannula. The patient underwent successful temporary hemodialysis line placement yesterday. The patient underwent his first successful hemodialysis session yesterday with 3 L of fluid removed. Repeat plain film chest x-ray from this morning continues to demonstrate near complete opacification of the left hemithorax. Objective: The patient's most recent lab work, culture data and imaging studies have all been personally reviewed. - Physical Exam Vitals/I&O's: Vital Signs Temp Pulse Resp BP Pulse Ox 97.5 F L 104 H 20 H 113/51 L 95 01/31/19 02:00 01/31/19 04:00 01/31/19 02:00 01/31/19 02:00 01/31/19 02:00 Oxygen Flow Rate (L/min) 2 Oxygen Delivery Method Nasal Cannula Weight: 174 lb 13.225 oz Body Mass Index (BMI) 25.0 Finger Stick Blood Glucose 160 Intake and Output for Last 24 Hours 01/29/19 01/30/19 01/31/19 23:59 23:59 23:59 Intake Total 4685.00 / 4685.00 1700 / 1900 440 / 440 Output Total 675 / 675 300 / 350 50 / 50 Balance 4010.00 / 4010.00 1400 / 1550 390 / 390 General: Alert, Cooperative, No apparent distress HEENT: Atraumatic, PERRLA, Normocephalic Oral: Moist Mucosa Neck: Supple, No Nodes, Trachea Midline, - - Temporary hemodialysis catheter in place Lungs: No rhonchi, No wheeze, No rales, Diminished Cardiovascular: Regular rate, Regular Rhythm, Normal S1, Normal S2 Abdomen: Bowel Sounds Present, Soft, Non Tender, - - + Ostomy and suprapubic catheter in place Extremities: No clubbing, No cyanosis, - - Left AKA Skin: - - No significant change from previous Musculoskeletal: No Muscle Wasting Lymphatic: No Cervical, Supraclavicular, or Inguinal Adenopathy Neurological: Neuro grossly intact Psych/Mental Status: Normal Affect, Appropriate Labs (Last 48 Hours) 01/29/19 01/29/19 01/29/19 06:10 11:28 17:03 WBC RBC Hgb Hct MCV MCH MCHC RDW Std Deviation RDW Coeff of Raji Plt Count MPV Immature Gran % (Auto) Neut % (Auto) Lymph % (Auto) [place] % (Auto) Eos % (Auto) Baso % (Auto) Absolute Neuts (auto) Absolute Lymphs (auto) Nucleated RBC % Sodium 132 L Potassium 4.5 Chloride 104 Carbon Dioxide 16.0 L Anion Gap 12 BUN 106 H* Creatinine 3.79 H Estim Creat Clear Calc 17.39 Est GFR (MDRD) Af Amer 20 L Est GFR (MDRD) Non-Af 17 L BUN/Creatinine Ratio 28.0 H Glucose 133 H Lactic Acid Calcium 7.6 L Total Bilirubin AST ALT Alkaline Phosphatase Troponin I B-Natriuretic Peptide Total Protein Albumin Globulin Albumin/Globulin Ratio Lipase Hep Bs Antigen Hep Bs Antibody POC Glucose 202 H 188 H 01/29/19 01/30/19 01/30/19 21:12 01:40 06:37 WBC 10.3 RBC 2.67 L Hgb 7.4 L Hct 24.1 L MCV 90.3 MCH 27.7 MCHC 30.7 L RDW Std Deviation 49.7 H RDW Coeff of Raji 15.1 H Plt Count 301 MPV 9.1 Immature Gran % (Auto) 2.800 H Neut % (Auto) 76.0 H Lymph % (Auto) 9.9 L [place] % (Auto) 8.6 Eos % (Auto) 2.5 Baso % (Auto) 0.2 Absolute Neuts (auto) 7.8 H Absolute Lymphs (auto) 1.02 Nucleated RBC % 0 Sodium Potassium Chloride Carbon Dioxide Anion Gap BUN Creatinine Estim Creat Clear Calc Est GFR (MDRD) Af Amer Est GFR (MDRD) Non-Af BUN/Creatinine Ratio Glucose Lactic Acid Calcium Total Bilirubin AST ALT Alkaline Phosphatase Troponin I B-Natriuretic Peptide Total Protein Albumin Globulin Albumin/Globulin Ratio Lipase Hep Bs Antigen Hep Bs Antibody POC Glucose 200 H 131 H 01/30/19 01/30/19 01/30/19 06:37 06:37 06:37 WBC RBC Hgb Hct MCV MCH MCHC RDW Std Deviation RDW Coeff of Raji Plt Count MPV Immature Gran % (Auto) Neut % (Auto) Lymph % (Auto) [place] % (Auto) Eos % (Auto) Baso % (Auto) Absolute Neuts (auto) Absolute Lymphs (auto) Nucleated RBC % Sodium 132 L Potassium 4.5 Chloride 104 Carbon Dioxide 15.0 L Anion Gap 13 BUN 104 H* Creatinine 3.74 H Estim Creat Clear Calc 17.62 Est GFR (MDRD) Af Amer 20 L Est GFR (MDRD) Non-Af 17 L BUN/Creatinine Ratio 27.8 H Glucose 148 H Lactic Acid Calcium 7.4 L Total Bilirubin AST ALT Alkaline Phosphatase Troponin I < 0.015 B-Natriuretic Peptide 241.7 H Total Protein Albumin Globulin Albumin/Globulin Ratio Lipase Hep Bs Antigen Hep Bs Antibody POC Glucose 01/30/19 01/30/19 01/30/19 06:53 11:23 16:02 WBC RBC Hgb Hct MCV MCH MCHC RDW Std Deviation RDW Coeff of Raji Plt Count MPV Immature Gran % (Auto) Neut % (Auto) Lymph % (Auto) [place] % (Auto) Eos % (Auto) Baso % (Auto) Absolute Neuts (auto) Absolute Lymphs (auto) Nucleated RBC % Sodium Potassium Chloride Carbon Dioxide Anion Gap BUN Creatinine Estim Creat Clear Calc Est GFR (MDRD) Af Amer Est GFR (MDRD) Non-Af BUN/Creatinine Ratio Glucose Lactic Acid Calcium Total Bilirubin AST ALT Alkaline Phosphatase Troponin I B-Natriuretic Peptide Total Protein Albumin Globulin Albumin/Globulin Ratio Lipase Hep Bs Antigen Hep Bs Antibody POC Glucose 147 H 120 H 111 H 01/30/19 01/30/19 01/30/19 16:56 17:34 21:14 WBC RBC Hgb Hct MCV MCH MCHC RDW Std Deviation RDW Coeff of Raji Plt Count MPV Immature Gran % (Auto) Neut % (Auto) Lymph % (Auto) [place] % (Auto) Eos % (Auto) Baso % (Auto) Absolute Neuts (auto) Absolute Lymphs (auto) Nucleated RBC % Sodium Potassium Chloride Carbon Dioxide Anion Gap BUN Creatinine Estim Creat Clear Calc Est GFR (MDRD) Af Amer Est GFR (MDRD) Non-Af BUN/Creatinine Ratio Glucose Lactic Acid Calcium Total Bilirubin AST ALT Alkaline Phosphatase Troponin I B-Natriuretic Peptide Total Protein Albumin Globulin Albumin/Globulin Ratio Lipase Hep Bs Antigen Pending Hep Bs Antibody Pending POC Glucose 147 H 133 H 12/22/19 12/22/19 12/22/19 05:59 06:05 06:05 WBC 8.8 RBC 2.59 L Hgb 7.3 L Hct 23.0 L MCV 88.8 MCH 28.2 MCHC 31.7 L RDW Std Deviation 50.2 H RDW Coeff of Raji 15.6 H Plt Count 286 MPV 9.2 Immature Gran % (Auto) 1.400 H Neut % (Auto) 65.9 Lymph % (Auto) 10.7 L [place] % (Auto) 8.6 Eos % (Auto) 12.9 H Baso % (Auto) 0.5 Absolute Neuts (auto) 5.8 Absolute Lymphs (auto) 0.94 Nucleated RBC % 0 Sodium Cancelled Potassium Cancelled Chloride Cancelled Carbon Dioxide Cancelled Anion Gap Cancelled BUN Cancelled Creatinine Cancelled Estim Creat Clear Calc Cancelled Est GFR (MDRD) Af Amer Cancelled Est GFR (MDRD) Non-Af Cancelled BUN/Creatinine Ratio Cancelled Glucose Cancelled Lactic Acid Calcium Cancelled Total Bilirubin AST ALT Alkaline Phosphatase Troponin I B-Natriuretic Peptide Total Protein Albumin Globulin Albumin/Globulin Ratio Lipase Hep Bs Antigen Hep Bs Antibody POC Glucose 99 01/31/19 01/31/19 06:05 06:55 WBC RBC Hgb Hct MCV MCH MCHC RDW Std Deviation RDW Coeff of Raji Plt Count MPV Immature Gran % (Auto) Neut % (Auto) Lymph % (Auto) [place] % (Auto) Eos % (Auto) Baso % (Auto) Absolute Neuts (auto) Absolute Lymphs (auto) Nucleated RBC % Sodium 135 L Potassium 4.0 Chloride 103 Carbon Dioxide 22.0 Anion Gap 10 BUN 63 H Creatinine 2.63 H Estim Creat Clear Calc 25.06 Est GFR (MDRD) Af Amer 31 L Est GFR (MDRD) Non-Af 25 L BUN/Creatinine Ratio 24.0 H Glucose 93 Lactic Acid Pending Calcium 7.6 L Total Bilirubin 0.20 AST 20 ALT 59 Alkaline Phosphatase 81 Troponin I B-Natriuretic Peptide Total Protein 5.2 L Albumin 1.6 L Globulin 3.6 Albumin/Globulin Ratio 0.4 L Lipase 66 L Hep Bs Antigen Hep Bs Antibody POC Glucose Microbiology 01/30/19 Unknown Stool Stool Occult Blood (DWAYNE) - Final Occult Blood Positive Clinical Impression(s) from Imaging Studies Renal Ultrasound 01/28/19 08:11 IMPRESSION: 1. No hydronephrosis. 2. Severe left renal cortical atrophy. 3. Bilateral simple renal cysts. Electronically Signed: Truman Perez MD ([place]) at 16:54 EST , Service support , Abdomen X-Ray 01/29/19 13:56 IMPRESSION: Moderate general increase in colonic bowel gas and moderate stool without other acute abdominal or pelvic findings. Electronically Signed: Ximena Jain MD at 17:29 EST , Service support , Chest X-Ray 01/30/19 01:55 IMPRESSION: Left-sided pleural effusion with possible left lower lobe collapse. If indicated, follow-up with bronchoscopy or CT chest may further characterize these findings. Asymmetric congestive heart failure versus right perihilar pneumonia. Electronically Signed: Deja Ford MD at 2:18 EST , Service support , Abdomen X-Ray 01/30/19 08:40 IMPRESSION: Prominent air within the colonic markings without definitive air fluid levels to suggest underlying ileus versus obstruction, clinically correlate. Electronically Signed: Saw Verdugo DO at 10:31 EST , Service support , Chest X-Ray 01/30/19 14:25 Current Medications Acetaminophen (Tylenol) 650 mg PO Q6H PRN PRN PRN Reason: Pain Score 1-3/Temp > 100.7 F Last Admin: 01/31/19 00:12 Dose: 650 mg Documented by: Al Hydroxide/Mg Hydroxide (Mylanta Ii) 30 ml PO Q6H PRN PRN PRN Reason: Gastric Burning Albuterol Sulfate (Ventolin Aerosols) 2.5 mg INHALATION Q2H PRN PRN PRN Reason: SOB/Wheezing Last Admin: 01/30/19 02:09 Dose: 2.5 mg Documented by: Ascorbic Acid (Vitamin C) 1,000 mg PO BID [facility] Last Admin: 01/30/19 21:41 Dose: 1,000 mg Documented by: Atorvastatin Calcium (Lipitor) 10 mg PO QHS [facility] Last Admin: 01/30/19 21:40 Dose: 10 mg Documented by: Colesevelam HCl (Welchol) 625 mg PO BID [facility] Last Admin: 01/30/19 21:39 Dose: 625 mg Documented by: [facility] Last Admin: 01/30/19 18:44 Dose: 325 mg Documented by: Gabapentin (Neurontin) 300 mg PO QHS [facility] Last Admin: 01/30/19 21:39 Dose: 300 mg Documented by: Glucagon () 1 mg IM .X1 PRN PRN Reason: Hypoglycemia Guaifenesin (Robitussin) 20 ml PO Q4H PRN PRN PRN Reason: COUGH Heparin Sodium (Porcine) () 2,500 units IV UD PRN PRN Reason: Dialysis Cath Heparin Flush Sodium Chloride () 250 mls @ 15 mls/hr IV .[id number] PRN PRN Reason: Saline Flush Sodium Chloride () 250 mls @ 15 mls/hr IV .[id number] PRN PRN Reason: Additional IVPB Infusion Dextrose (Dextrose 10%-Water) 250 mls @ 999 mls/hr IV .Q16M PRN; Protocol PRN Reason: HYPOGLYCEMIA Cefazolin Sodium 2 gm/ Sodium (Chloride) 110 mls @ 150 mls/hr IV X1 ONE Stop: 02/01/19 21:16 Insulin Human Lispro (Humalog Otilio (Bkc)) 0 unit SC [facility]; Protocol Last Admin: 01/31/19 06:13 Dose: Not Given Documented by: Levothyroxine Sodium (Synthroid) 25 mcg PO DAILY@0600 [facility] Last Admin: 01/31/19 06:12 Dose: 25 mcg Documented by: Melatonin (Melatonin) 3 mg PO QHS PRN PRN PRN Reason: INSOMNIA Last Admin: 01/31/19 02:30 Dose: 3 mg Documented by: Metoprolol Tartrate (Lopressor (Beta Roxy)) 25 mg PO BID [facility] Last Admin: 01/29/19 09:17 Dose: Not Given Documented by: Morphine Sulfate () 2 mg IV Q3H PRN PRN PRN Reason: Pain Score 6-10/10 Last Admin: 01/31/19 03:58 Dose: 2 mg Documented by: Multivitamins/Minerals (Multivitamin With Minerals) 1 tablet PO DAILY@0800 [facility] Last Admin: 01/30/19 08:18 Dose: 1 tablet Documented by: Nitroglycerin (Nitrostat) 0.4 mg SUBLINGUAL Q5M PRN PRN Reason: CARDIAC/CHEST PAIN Ondansetron HCl (Zofran) 4 mg IV Q8H PRN PRN PRN Reason: NAUSEA/VOMITING Oxycodone HCl (Oxyir) 5 mg PO Q4H PRN PRN PRN Reason: Pain Score 4-5/10 Pantoprazole Sodium (Protonix) 40 mg PO DAILY [facility] Last Admin: 01/30/19 08:18 Dose: 40 mg Documented by: Polyethylene Glycol (Miralax) 17 gm PO DAILY PRN PRN PRN Reason: Constipation Last Admin: 01/30/19 11:25 Dose: 17 gm Documented by: Senna (Senokot) 2 tablet PO DAILY PRN PRN PRN Reason: CONSTIPATION Senna/Docusate Sodium (Senokot-S, Itzel-Colace) 2 tablet PO BID PRN PRN PRN Reason: Constipation Last Admin: 01/30/19 10:00 Dose: 2 tablet Documented by: Sodium Bicarbonate (Sodium Bicarbonate) 1,300 mg PO TID [facility] Last Admin: 01/31/19 06:12 Dose: 1,300 mg Documented by: Sodium Chloride () 10 - 40 ml IV UD PRN PRN Reason: SALINE FLUSH Last Admin: 01/30/19 06:49 Dose: 10 ml Documented by: Sodium Chloride () 10 ml IV UD PRN PRN Reason: Dialysis Catheter Flush Sucralfate (Carafate) 1 gm PO 1HR_ACHS [facility] Last Admin: 01/31/19 06:12 Dose: 1 gm Documented by: Medical Necessity - Tobacco Use Smoking Status: Never smoker Assessment/Plan All Active Problems (Last Reviewed 07/27/18 @ 13:58 by Kaleigh Braden PA-C) Solitary kidney (Acute) Acute kidney injury on CKD stage III (Acute) Blister of left leg without infection (Acute) Hypotension (Acute) Probable sepsis (Acute) Infected pressure ulcer (Acute) Abdominal pain (Acute) Acute kidney injury (Acute) Septic shock (Acute) Pressure ulcer of sacral region, stage 3 (Acute) Scrotal ulcer (Acute) Complicated UTI (urinary tract infection) (Acute) Constipation (Acute) Pressure ulcer of perianal region (Resolved) Pressure ulcer of buttock (Resolved) UTI (urinary tract infection) (Acute) RECOMMENDATIONS: 1. Obtain noncontrasted chest CT for further clarification of patient's left hemithorax abnormalities. 2. Continue to wean supplemental oxygen as tolerated. 3. Continue attempts at volume optimization with hemodialysis per nephrology recommendations. IMPRESSIONS: 1. Acute hypoxemic respiratory insufficiency/shortness of breath The patient's plain film chest x-ray revealed findings of near complete opacification of the left hemithorax. Differential diagnosis would include large left-sided pleural effusion with associated compressive atelectasis, underlying consolidation or possible endobronchial obstruction leading to airway collapse. At this time, the patient is volume overloaded. I would recommend that his volume status be optimized further per nephrology recommendations. Given that the patient's chest x-ray has not demonstrated any significant interval changes since the patient underwent dialysis yesterday, will obtain noncontrasted chest CT this morning. Wean supplemental oxygen as tolerated to maintain saturations at or above 90%. Encourage incentive spirometer use. Patient may require bronchoscopic airway evaluation, depending on the results of his work-up and future clinical course. 2. Acute kidney injury Nephrology is currently following to assist with medical management. The patient's renal function has not recovered despite volume resuscitation. In fact, the patient is now volume overloaded and in need of optimization. Therefore, a temporary hemodialysis catheter was placed and the patient was started on hemodialysis. There are tentative plans for tunneled dialysis line placement tomorrow. 3. Anemia of chronic disease Continue to monitor H&H daily with plans to transfuse if hemoglobin drops below 7 g/dL. 4. History of osteomyelitis/chronic decubitus ulcers/diabetes mellitus/hypertension/hyperlipidemia/hypothyroidism Complicates care, management, recovery and prognosis. Continue home medications as indicated. This note was generated with [employer] software. It may contain incorrect words, spelling, and punctuation that were not noted in checking the note before signing. Code Visit Inpatient E&M: 5[address] [facility] L[facility]
--- NOTE | 2019-01-31 07:16 | CT_ITS ---
STUDY: CT CHEST WITHOUT CONTRAST REASON FOR EXAM: Male, 73 years old. Left-sided pleural effusion. Renal failure. RADIATION DOSAGE (If Supplied By Facility): CTDIvol = ( 19.75 ) mGy, DLP = ( 740.28 ) mGycm TECHNIQUE: Transaxial imaging was performed without the administration of intravenous contrast material. Individualized dose optimization techniques were used for this CT. COMPARISON: July 07, 2018 FINDINGS: There are moderate bilateral pleural effusions present, left greater than right. There is collapse of the left lower lobe associated with extensive consolidation. There is dependent consolidation within the left upper lobe as well. There is dependent consolidation is visualized within the right lower lobe as well. There is a pericardial effusion present measuring up to 13 mm. There are coronary artery calcifications. Normal mediastinum. Normal hilar regions. Normal unenhanced pulmonary arteries. There is atherosclerotic calcification of the aortic arch and descending thoracic aorta. There is a right-sided central venous catheter in place terminating within the superior vena cava. There are multi-level degenerative changes of the thoracic spine. There is subcutaneous edema. There is no demonstrated abnormality of the visualized upper abdomen. CT/Chest without Contrast IMPRESSION: Bilateral pleural effusions, left greater than right. Extensive consolidation throughout the left lung associated with collapse of the left lower lobe. Right lower lobe consolidation. Pericardial effusion. Subcutaneous edema. Electronically Signed: Mimi Romero MD at 9:14 EST Tel , Service support ,
[2019-01-31 07:29] LABS: Lactic Acid 0.4 mmol/L (0.4-1.9)
[2019-01-31] MEDS: oxyCODONE 5 MG Tablet PO ×2 (08:33→17:10)
[2019-01-31] MEDS: Albuterol 2.5 MG/3 ML VIAL.NEB. INHALATION (09:05)
[2019-01-31 09:29] LABS: Hepatitis B Surface Antibody Non-Reactive; Hepatitis B Surface Antigen Non-Reactive (Nonreactive)
[2019-01-31] MEDS: Ascorbic Acid 500 MG Tablet 1000 MG PO ×2 (09:59→21:05)
[2019-01-31] MEDS: Pantoprazole Sodium 40 MG Tablet PO (10:00)
[2019-01-31] MEDS: Ferrous Sulfate 325 MG Tablet PO ×2 (10:00→17:10)
[2019-01-31] MEDS: Multivitamins,Ther W-Minerals Tablet 1 TABLET PO (10:00)
--- NOTE | 2019-01-31 10:20 | PN_ITS ---
Patient Problems: Active and Suspected Problems (Last Reviewed 07/27/18 @ 13:58 by Kaleigh Braden PA-C) Solitary kidney (Acute) Acute kidney injury on CKD stage III (Acute) Reason for Visit: Follow-up on URSZULA Subjective: Patient was seen and examined. Had hemodialysis done yesterday. Still complains of feeling unwell and short of breath. Dialysis is planned for today Patient will receive tunneled hemodialysis catheter tomorrow Objective: Physical exam: General: Alert, Oriented x3, Cooperative, No apparent distress HEENT: Atraumatic, PERRLA, EOMI, Normocephalic Oral: Moist Mucosa Neck: Supple, No JVD, Negative Carotid Bruits Lungs: C decreased breath sounds in left mid and lower lung [place], no wheezing or crackles. on 3L of oxygen Cardiovascular: Regular rate, Regular Rhythm, Normal S1, Normal S2, No murmurs Abdomen: Bowel Sounds Present, Soft, Non Tender, Non-Distended, No Hepato- splenomegaly, - - colostomy bag in place; suprapubic catheter Skin: - - right hip disarticulated, left AKA Musculoskeletal: No Tenderness to Palpation of Joints or Extremities Lymphatic: No Cervical, Supraclavicular, or Inguinal Adenopathy Neurological: Cranial nerves II-XII grossly intact Psych/Mental Status: Normal Affect, Appropriate, Alert and oriented to time, place, person, mood and affect Vitals/I&O's: Vital Signs Temp Pulse Resp BP Pulse Ox 98.1 F 105 H 20 H 120/56 L 95 01/31/19 08:08 01/31/19 09:07 01/31/19 09:07 01/31/19 08:08 01/31/19 08:09 Oxygen Flow Rate (L/min) 2 Oxygen Delivery Method Nasal Cannula Weight: 79.3 kg Body Mass Index (BMI) 25.0 Finger Stick Blood Glucose 160 Intake and Output for Last 24 Hours 01/29/19 01/30/19 01/31/19 23:59 23:59 23:59 Intake Total 4685.00 / 4685.00 1700 / 1900 440 / 440 Output Total 675 / 675 300 / 350 50 / 50 Balance 4010.00 / 4010.00 1400 / 1550 390 / 390 Microbiology Past 72 Hours 01/30/19 Unknown Stool Stool Occult Blood (DWAYNE) - Final Occult Blood Positive Laboratory Results 01/30/19 11:23: POC Glucose 120 H 01/30/19 16:02: POC Glucose 111 H 01/30/19 16:56: POC Glucose 147 H 01/30/19 17:34: Hep Bs Antigen Non-Reactive, Hep Bs Antibody Non-Reactive 01/30/19 21:14: POC Glucose 133 H 01/31/19 05:59: POC Glucose 99 01/31/19 06:05: WBC 8.8, RBC 2.59 L, Hgb 7.3 L, Hct 23.0 L, MCV 88.8, MCH 28.2, MCHC 31.7 L, RDW Std Deviation 50.2 H, RDW Coeff of Raji 15.6 H, Plt Count 286, MPV 9.2, Immature Gran % (Auto) 1.400 H, Neut % (Auto) 65.9, Lymph % (Auto) 10.7 L, [place] % (Auto) 8.6, Eos % (Auto) 12.9 H, Baso % (Auto) 0.5, Absolute Neuts (auto) 5.8, Absolute Lymphs (auto) 0.94, Nucleated RBC % 0 01/31/19 06:05: Sodium Cancelled, Potassium Cancelled, Chloride Cancelled, Carbon Dioxide Cancelled, Anion Gap Cancelled, BUN Cancelled, Creatinine Cancelled, Estim Creat Clear Calc Cancelled, Est GFR (MDRD) Af Amer Cancelled, Est GFR (MDRD) Non-Af Cancelled, BUN/Creatinine Ratio Cancelled, Glucose Cancelled, Calcium Cancelled 01/31/19 06:05: Sodium 135 L, Potassium 4.0, Chloride 103, Carbon Dioxide 22.0, Anion Gap 10, BUN 63 H, Creatinine 2.63 H, Estim Creat Clear Calc 25.06, Est GFR (MDRD) Af Amer 31 L, Est GFR (MDRD) Non-Af 25 L, BUN/Creatinine Ratio 24.0 H, Glucose 93, Calcium 7.6 L, Total Bilirubin 0.20, AST 20, ALT 59, Alkaline Phosphatase 81, Total Protein 5.2 L, Albumin 1.6 L, Globulin 3.6, Albumin/Globulin Ratio 0.4 L, Lipase 66 L 01/31/19 06:55: Lactic Acid 0.4 Current Medications Acetaminophen (Tylenol) 650 mg PO Q6H PRN PRN PRN Reason: Pain Score 1-3/Temp > 100.7 F Last Admin: 01/31/19 00:12 Dose: 650 mg Documented by: Al Hydroxide/Mg Hydroxide (Mylanta Ii) 30 ml PO Q6H PRN PRN PRN Reason: Gastric Burning Albuterol Sulfate (Ventolin Aerosols) 2.5 mg INHALATION Q2H PRN PRN PRN Reason: SOB/Wheezing Last Admin: 01/31/19 09:05 Dose: 2.5 mg Documented by: Ascorbic Acid (Vitamin C) 1,000 mg PO BID [facility] Last Admin: 01/31/19 09:59 Dose: 1,000 mg Documented by: Atorvastatin Calcium (Lipitor) 10 mg PO QHS [facility] Last Admin: 01/30/19 21:40 Dose: 10 mg Documented by: Colesevelam HCl (Welchol) 625 mg PO BID [facility] Last Admin: 01/31/19 10:00 Dose: 625 mg Documented by: [facility]ous S[facility]) [facility] Last Admin: 01/31/19 10:00 Dose: 325 mg Documented by: Gabapentin (Neurontin) 300 mg PO QHS [facility] Last Admin: 01/30/19 21:39 Dose: 300 mg Documented by: Glucagon () 1 mg IM .X1 PRN PRN Reason: Hypoglycemia Guaifenesin (Robitussin) 20 ml PO Q4H PRN PRN PRN Reason: COUGH Heparin Sodium (Porcine) () 2,500 units IV UD PRN PRN Reason: Dialysis Cath Heparin Flush Sodium Chloride () 250 mls @ 15 mls/hr IV .[id number] PRN PRN Reason: Saline Flush Sodium Chloride () 250 mls @ 15 mls/hr IV .[id number] PRN PRN Reason: Additional IVPB Infusion Dextrose (Dextrose 10%-Water) 250 mls @ 999 mls/hr IV .Q16M PRN; Protocol PRN Reason: HYPOGLYCEMIA Cefazolin Sodium 2 gm/ Sodium (Chloride) 110 mls @ 150 mls/hr IV X1 ONE Stop: 02/01/19 21:16 Insulin Human Lispro (Humalog Kwikpen (Bkc)) 0 unit SC [facility]; Protocol Last Admin: 01/31/19 06:13 Dose: Not Given Documented by: Levothyroxine Sodium (Synthroid) 25 mcg PO DAILY@0600 [facility] Last Admin: 01/31/19 06:12 Dose: 25 mcg Documented by: Melatonin (Melatonin) 3 mg PO QHS PRN PRN PRN Reason: INSOMNIA Last Admin: 01/31/19 02:30 Dose: 3 mg Documented by: Metoprolol Tartrate (Lopressor (Beta Roxy)) 25 mg PO BID [facility] Last Admin: 01/29/19 09:17 Dose: Not Given Documented by: Morphine Sulfate () 2 mg IV Q3H PRN PRN PRN Reason: Pain Score 6-10/10 Last Admin: 01/31/19 03:58 Dose: 2 mg Documented by: Multivitamins/Minerals (Multivitamin With Minerals) 1 tablet PO DAILY@0800 [facility] Last Admin: 01/31/19 10:00 Dose: 1 tablet Documented by: Nitroglycerin (Nitrostat) 0.4 mg SUBLINGUAL Q5M PRN PRN Reason: CARDIAC/CHEST PAIN Ondansetron HCl (Zofran) 4 mg IV Q8H PRN PRN PRN Reason: NAUSEA/VOMITING Oxycodone HCl (Oxyir) 5 mg PO Q4H PRN PRN PRN Reason: Pain Score 4-5/10 Last Admin: 01/31/19 08:33 Dose: 5 mg Documented by: Pantoprazole Sodium (Protonix) 40 mg PO DAILY [facility] Last Admin: 01/31/19 10:00 Dose: 40 mg Documented by: Polyethylene Glycol (Miralax) 17 gm PO DAILY PRN PRN PRN Reason: Constipation Last Admin: 01/30/19 11:25 Dose: 17 gm Documented by: Senna (Senokot) 2 tablet PO DAILY PRN PRN PRN Reason: CONSTIPATION Senna/Docusate Sodium (Senokot-S, Itzel-Colace) 2 tablet PO BID PRN PRN PRN Reason: Constipation Last Admin: 01/30/19 10:00 Dose: 2 tablet Documented by: Sodium Bicarbonate (Sodium Bicarbonate) 1,300 mg PO TID [facility] Last Admin: 01/31/19 06:12 Dose: 1,300 mg Documented by: Sodium Chloride () 10 - 40 ml IV UD PRN PRN Reason: SALINE FLUSH Last Admin: 01/30/19 06:49 Dose: 10 ml Documented by: Sodium Chloride () 10 ml IV UD PRN PRN Reason: Dialysis Catheter Flush Sucralfate (Carafate) 1 gm PO 1HR_ACHS [facility] Last Admin: 01/31/19 10:00 Dose: 1 gm Documented by: STROKE Vital Signs/Narrative: Vital Signs Temp Pulse Resp BP Pulse Ox 01/31/19 09:07 105 H 20 H 01/31/19 08:09 95 01/31/19 08:08 98.1 F 100 20 H 120/56 L 95 01/31/19 07:06 95 01/31/19 06:53 99 Medical Necessity - Tobacco Use Smoking Status: Never smoker Assessment/Plan All Active Problems (Last Reviewed 07/27/18 @ 13:58 by Kaleigh Braden PA-C) Solitary kidney (Acute) Acute kidney injury on CKD stage III (Acute) Blister of left leg without infection (Acute) Hypotension (Acute) Probable sepsis (Acute) Infected pressure ulcer (Acute) Abdominal pain (Acute) Acute kidney injury (Acute) Septic shock (Acute) Pressure ulcer of sacral region, stage 3 (Acute) Scrotal ulcer (Acute) Complicated UTI (urinary tract infection) (Acute) Constipation (Acute) Pressure ulcer of perianal region (Resolved) Pressure ulcer of buttock (Resolved) UTI (urinary tract infection) (Acute) 1. URSZULA with hyperkalemia, patient is oliguric, Cr is 2.63, baseline Cr 0.8 Received dialysis by temporary catheter yesterday Discussed with nephrology, dialysis today Trend labs in a.m. 2. Acute hypoxic respiratory insufficiency due to left sided pleural effusion CAT scan of the chest shows bilateral pleural effusion, left greater than right, extensive consolidation throughout the left lung associated with collapse of the left lower lung, right lower lobe consolidation, pericardial effusion, subcutaneous edema Patient is on 2 L of oxygen We will continue to monitor and wean off for SPO2 while patient undergoes fluid removal from dialysis Patient's pulmonary status will need to be reassessed after fluids are taken off from dialysis 3. Acute on chronic anemia, Hb stable at 7.3, will monitor 4. Constipation, on multiple bowel regimen 5. 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 Type 2 diabetes mellitus, BS is stable, On insulin sliding scale. Will continue to monitor 7. Hypertension, relatively hypotensive, off amlodipine and metoprolol, will continue to monitor 8. Hyperlipidemia, continue on statin. 9. Hypothyroidism, contineu on Synthroid 10. DVT prophylaxis -unable to use SCDs or chemoprophylaxis on account of anemia. Code status: Full code Code Visit Inpatient E&M: 58876 Subs Hosp L2
[2019-01-31 11:55] LABS: Bedside Glucose 116 mg/dL (70-110)
--- NOTE | 2019-01-31 12:01 | PN.RENAL_ITS ---
Patient Problems: Active and Suspected Problems (Last Reviewed 07/27/18 @ 13:58 by Kaleigh Braden PA-C) Solitary kidney (Acute) Acute kidney injury on CKD stage III (Acute) Subjective: S/P hemodialysis yesterday still SOB - Physical Exam Vitals/I&O's: Vital Signs Temp Pulse Resp BP Pulse Ox 97.7 F L 104 H 20 H 118/51 L 99 01/31/19 11:39 01/31/19 11:39 01/31/19 11:39 01/31/19 11:39 01/31/19 11:39 Oxygen Flow Rate (L/min) 1 Oxygen Delivery Method Nasal Cannula Weight: 79.3 kg Body Mass Index (BMI) 25.0 Finger Stick Blood Glucose 160 Intake and Output for Last 24 Hours 01/29/19 01/30/19 01/31/19 23:59 23:59 23:59 Intake Total 4685.00 / 4685.00 1700 / 1900 680 / 680 Output Total 675 / 675 300 / 350 200 / 200 Balance 4010.00 / 4010.00 1400 / 1550 480 / 480 General: Alert, Oriented x3, Cooperative HEENT: Atraumatic, PERRLA, EOMI, Normocephalic Neck: Supple, No JVD, Negative Carotid Bruits Lungs: Clear to auscultation, Normal air movement Cardiovascular: Regular rate, No murmurs Abdomen: Bowel Sounds Present, Soft, Non Tender Extremities: No edema, Capillary Refill Less than 3 Seconds Skin: No rashes, No breakdown Musculoskeletal: No Tenderness to Palpation of Joints or Extremities Neurological: Cranial nerves II-XII grossly intact Psych/Mental Status: Normal Affect, Appropriate Microbiology Past 72 Hours 01/30/19 Unknown Stool Stool Occult Blood (DWAYNE) - Final Occult Blood Positive Laboratory Results 01/30/19 11:23: POC Glucose 120 H 01/30/19 16:02: POC Glucose 111 H 01/30/19 16:56: POC Glucose 147 H 01/30/19 17:34: Hep Bs Antigen Non-Reactive, Hep Bs Antibody Non-Reactive 01/30/19 21:14: POC Glucose 133 H 01/31/19 05:59: POC Glucose 99 01/31/19 06:05: WBC 8.8, RBC 2.59 L, Hgb 7.3 L, Hct 23.0 L, MCV 88.8, MCH 28.2, MCHC 31.7 L, RDW Std Deviation 50.2 H, RDW Coeff of Raji 15.6 H, Plt Count 286, MPV 9.2, Immature Gran % (Auto) 1.400 H, Neut % (Auto) 65.9, Lymph % (Auto) 10.7 L, [place] % (Auto) 8.6, Eos % (Auto) 12.9 H, Baso % (Auto) 0.5, Absolute Neuts (auto) 5.8, Absolute Lymphs (auto) 0.94, Nucleated RBC % 0 01/31/19 06:05: Sodium Cancelled, Potassium Cancelled, Chloride Cancelled, Carbon Dioxide Cancelled, Anion Gap Cancelled, BUN Cancelled, Creatinine Cancelled, Estim Creat Clear Calc Cancelled, Est GFR (MDRD) Af Amer Cancelled, Est GFR (MDRD) Non-Af Cancelled, BUN/Creatinine Ratio Cancelled, Glucose Cancelled, Calcium Cancelled 01/31/19 06:05: Sodium 135 L, Potassium 4.0, Chloride 103, Carbon Dioxide 22.0, Anion Gap 10, BUN 63 H, Creatinine 2.63 H, Estim Creat Clear Calc 25.06, Est GFR (MDRD) Af Amer 31 L, Est GFR (MDRD) Non-Af 25 L, BUN/Creatinine Ratio 24.0 H, Glucose 93, Calcium 7.6 L, Total Bilirubin 0.20, AST 20, ALT 59, Alkaline Phosphatase 81, Total Protein 5.2 L, Albumin 1.6 L, Globulin 3.6, Albumin/Globulin Ratio 0.4 L, Lipase 66 L 01/31/19 06:55: Lactic Acid 0.4 01/31/19 11:16: POC Glucose 116 H Current Medications Acetaminophen (Tylenol) 650 mg PO Q6H PRN PRN PRN Reason: Pain Score 1-3/Temp > 100.7 F Last Admin: 01/31/19 00:12 Dose: 650 mg Documented by: Al Hydroxide/Mg Hydroxide (Mylanta Ii) 30 ml PO Q6H PRN PRN PRN Reason: Gastric Burning Albuterol Sulfate (Ventolin Aerosols) 2.5 mg INHALATION Q2H PRN PRN PRN Reason: SOB/Wheezing Last Admin: 01/31/19 09:05 Dose: 2.5 mg Documented by: Ascorbic Acid (Vitamin C) 1,000 mg PO BID [facility] Last Admin: 01/31/19 09:59 Dose: 1,000 mg Documented by: Atorvastatin Calcium (Lipitor) 10 mg PO QHS [facility] Last Admin: 01/30/19 21:40 Dose: 10 mg Documented by: Colesevelam HCl (Welchol) 625 mg PO BID [facility] Last Admin: 01/31/19 10:00 Dose: 625 mg Documented by: [facility]ous Sulf[facility] ([facility] S[facility]) [facility] Last Admin: 01/31/19 10:00 Dose: 325 mg Documented by: Gabapentin (Neurontin) 300 mg PO QHS [facility] Last Admin: 01/30/19 21:39 Dose: 300 mg Documented by: Glucagon () 1 mg IM .X1 PRN PRN Reason: Hypoglycemia Guaifenesin (Robitussin) 20 ml PO Q4H PRN PRN PRN Reason: COUGH Heparin Sodium (Porcine) () 2,500 units IV UD PRN PRN Reason: Dialysis Cath Heparin Flush Sodium Chloride () 250 mls @ 15 mls/hr IV .[id number] PRN PRN Reason: Saline Flush Sodium Chloride () 250 mls @ 15 mls/hr IV .[id number] PRN PRN Reason: Additional IVPB Infusion Dextrose (Dextrose 10%-Water) 250 mls @ 999 mls/hr IV .Q16M PRN; Protocol PRN Reason: HYPOGLYCEMIA Cefazolin Sodium 2 gm/ Sodium (Chloride) 110 mls @ 150 mls/hr IV X1 ONE Stop: 02/01/19 21:16 Insulin Human Lispro (Humalog Kwikpen (Bkc)) 0 unit SC [facility]; Protocol Last Admin: 01/31/19 11:40 Dose: Not Given Documented by: Levothyroxine Sodium (Synthroid) 25 mcg PO DAILY@0600 [facility] Last Admin: 01/31/19 06:12 Dose: 25 mcg Documented by: Melatonin (Melatonin) 3 mg PO QHS PRN PRN PRN Reason: INSOMNIA Last Admin: 01/31/19 02:30 Dose: 3 mg Documented by: Metoprolol Tartrate (Lopressor (Beta Roxy)) 25 mg PO BID [facility] Last Admin: 01/29/19 09:17 Dose: Not Given Documented by: Morphine Sulfate () 2 mg IV Q3H PRN PRN PRN Reason: Pain Score 6-10/10 Last Admin: 01/31/19 03:58 Dose: 2 mg Documented by: Multivitamins/Minerals (Multivitamin With Minerals) 1 tablet PO DAILY@0800 [facility] Last Admin: 01/31/19 10:00 Dose: 1 tablet Documented by: Nitroglycerin (Nitrostat) 0.4 mg SUBLINGUAL Q5M PRN PRN Reason: CARDIAC/CHEST PAIN Ondansetron HCl (Zofran) 4 mg IV Q8H PRN PRN PRN Reason: NAUSEA/VOMITING Oxycodone HCl (Oxyir) 5 mg PO Q4H PRN PRN PRN Reason: Pain Score 4-5/10 Last Admin: 01/31/19 08:33 Dose: 5 mg Documented by: Pantoprazole Sodium (Protonix) 40 mg PO DAILY [facility] Last Admin: 01/31/19 10:00 Dose: 40 mg Documented by: Polyethylene Glycol (Miralax) 17 gm PO DAILY PRN PRN PRN Reason: Constipation Last Admin: 01/30/19 11:25 Dose: 17 gm Documented by: Senna (Senokot) 2 tablet PO DAILY PRN PRN PRN Reason: CONSTIPATION Senna/Docusate Sodium (Senokot-S, Itzel-Colace) 2 tablet PO BID PRN PRN PRN Reason: Constipation Last Admin: 01/30/19 10:00 Dose: 2 tablet Documented by: Sodium Bicarbonate (Sodium Bicarbonate) 1,300 mg PO TID [facility] Last Admin: 01/31/19 06:12 Dose: 1,300 mg Documented by: Sodium Chloride () 10 - 40 ml IV UD PRN PRN Reason: SALINE FLUSH Last Admin: 01/30/19 06:49 Dose: 10 ml Documented by: Sodium Chloride () 10 ml IV UD PRN PRN Reason: Dialysis Catheter Flush Sucralfate (Carafate) 1 gm PO 1HR_ACHS [facility] Last Admin: 01/31/19 10:00 Dose: 1 gm Documented by: Medical Necessity - Tobacco Use Smoking Status: Never smoker Assessment/Plan All Active Problems (Last Reviewed 07/27/18 @ 13:58 by Kaleigh Braden PA-C) Solitary kidney (Acute) Acute kidney injury on CKD stage III (Acute) Blister of left leg without infection (Acute) Hypotension (Acute) Probable sepsis (Acute) Infected pressure ulcer (Acute) Abdominal pain (Acute) Acute kidney injury (Acute) Septic shock (Acute) Pressure ulcer of sacral region, stage 3 (Acute) Scrotal ulcer (Acute) Complicated UTI (urinary tract infection) (Acute) Constipation (Acute) Pressure ulcer of perianal region (Resolved) Pressure ulcer of buttock (Resolved) UTI (urinary tract infection) (Acute) Acute renal failure. Baseline unknown now ?deemed URSZULA ATN no recovery has rt IJ temporary DC change to TDC-HD again today FO IUF 3 L today Hyperkalemia use 3 K bath need epo and outpatient set up for HD Reviewed renal ultrasound images. I do not see any hydronephrosis on the right side. Left side appears atrophic with few cysts. Continue to hold amlodipine due to low blood pressure. We will follow thank you.
--- NOTE | 2019-01-31 16:30 | DIALYSIS ---
HD x 2.5 hours complete. Tolerated tx fairly well. UF of 2700ml. Ran on 3k bath. Used Right IJ catheter. Catheter closed with heparin per fill volume. Report was given to YOVANY Reynoso.
[2019-01-31] MEDS: Lactulose 20 GM/30 ML UDC PO (17:09)
[2019-01-31 17:30] LABS: Bedside Glucose 125 mg/dL (70-110)
[2019-01-31] MEDS: Gabapentin 300 MG Capsule PO (21:04)
[2019-01-31] MEDS: Atorvastatin Calcium 10 MG Tablet PO (21:04)
[2019-01-31 22:10] LABS: Bedside Glucose 140 mg/dL (70-110)
[2019-02-01] VITALS (20 sets, daily range): BP systolic 81–139; BP diastolic 46–63; PULSE 100–108; RESP 16–20; TEMP 36.3–36.8; O2SAT 88–99; BMI 25.0
[2019-02-01 05:46] LABS: Bedside Glucose 117 mg/dL (70-110)
--- NOTE | 2019-02-01 05:55 | EKG12_ITS ---
Test Reason : AM EKG Blood Pressure : / mmHG Vent. Rate : 109 BPM Atrial Rate : 109 BPM P-R Int : 148 ms QRS Dur : 080 ms QT Int : 300 ms P-R-T Axes : 085 064 094 degrees QTc Int : 404 ms Sinus tachycardia with occasional Premature ventricular complexes Nonspecific T wave abnormality Abnormal ECG No previous ECGs available Confirmed by BILLY ALFONSO, MEGHANN ([id number]), editorial clerk JAIDEN KRISHNAMURTHY ([id number]) on 02/05/2019 11:16:02 AM Referred By: Shaheen Contreras Confirmed By:VINAY CERVANTES MD
[2019-02-01 06:41] LABS: Absolute Lymphocyte Count 0.83 X10^3/uL (0.83-4.51); Absolute Neutrophil Count 5.4 X10^3/uL (2.0-7.7); Basophil# 0.04 X10^3/uL; Basophil% 0.5 % (0-1); Eosinophil# 0.96 X10^3/uL; Eosinophils% 11.9 % (0-5); Hematocrit 24.9 % (40-54); Hemoglobin 7.6 g/dL (13.0-16.5); Lymphocyte # 0.83 X10^3/ul (4.0); Lymphocyte % 10.3 % (19-41); Mean Corp Hgb Conc 30.5 g/dL (32-36); Mean Corpuscular Hgb 27.7 pg (27.0-32.0); Mean Corpuscular Volume 90.9 fL (80-94); Mean Platelet Vol. 8.9 fl (6.2-12.0); Monocyte% 9.9 % (0-10); NRBC Flagged by Analyzer 0 % (0-5); Neutrophil # 5.37 X10^3/uL (2.7-7.7); Neutrophil % 66.5 % (47-70); Platelet Count 278 K/mm3 (150-450); RBC Distribution Width CV 15.4 % (11.6-14.6); RBC Distribution Width SD 50.9 fl (35.1-43.9); Red Blood Count 2.74 M/mm3 (4.6-6.2); White Blood Count 8.1 K/mm3 (4.4-11.0)
[2019-02-01 06:46] LABS: Bedside Glucose 138 mg/dL (70-110)
[2019-02-01 06:47] LABS: International Normalized Ratio 1.4; Prothrombin Time (Protime)PT. 16.5 SECONDS (11.7-14.9)
[2019-02-01 06:48] LABS: Partial Thromboplast Time 45.5 Seconds (24.1-36.2)
[2019-02-01 06:55] LABS: Albumin, Serum 1.7 g/dL (3.2-5.0); BUN 37 mg/dL (7-18); Calcium,Total 7.8 mg/dL (8.5-10.1); Chloride 101 mmol/L (98-107); Creatinine, Serum 2.06 mg/dL (0.70-1.30); EST Glomerular Filtration Rate 34 mL/min (>60); Est Glom Filt Rate - Afr Amer 41 mL/min (>60); Estimated Creatinine Clearance 31.99 ml/min; Glucose 116 mg/dL (74-106); Phosphorus 3.4 mg/dL (2.5-4.9); Potassium 3.8 mmol/L (3.5-5.1); Sodium Level 136 mmol/L (136-145); Thyroid Stim Hormone (TSH) 1.46 uIU/mL (0.358-3.74)
[2019-02-01 07:30] LABS: Hemoglobin A1c 6.1 % (4.2-6.3)
--- NOTE | 2019-02-01 09:42 | PCM.PN.PUL ---
Patient Problems: Active and Suspected Problems (Last Reviewed 07/27/18 @ 13:58 by Kaleigh Braden PA-C) Solitary kidney (Acute) Acute kidney injury on CKD stage III (Acute) Subjective: The patient was seen and examined at the bedside this morning. Events from the last 24 hours have been reviewed. The patient is currently afebrile, hemodynamically stable and maintaining appropriate oxygen saturations on 1 L/min via nasal cannula. CT chest completed yesterday did reveal extensive bilateral pleural effusions, left greater than right. Objective: The patient's most recent lab work, culture data and imaging studies have all been personally reviewed. - Physical Exam Vitals/I&O's: Vital Signs Temp Pulse Resp BP Pulse Ox 97.9 F 107 H 16 126/58 H 97 02/01/19 09:00 02/01/19 09:00 02/01/19 09:00 02/01/19 09:00 02/01/19 09:00 Oxygen Flow Rate (L/min) 1 Oxygen Delivery Method Nasal Cannula Weight: 174 lb 13.225 oz Body Mass Index (BMI) 25.0 Finger Stick Blood Glucose 160 Intake and Output for Last 24 Hours 01/30/19 01/31/19 02/01/19 23:59 23:59 23:59 Intake Total 1700 / 1900 1040 / 1040 Output Total 300 / 350 550 / 550 100 / 100 Balance 1400 / 1550 490 / 490 -100 / -100 General: Alert, No apparent distress HEENT: Atraumatic, PERRLA, Normocephalic Oral: No Gingival or Mucosal Lesions/ Ulcerations Neck: Supple, No Nodes, Trachea Midline Lungs: No rhonchi, No wheeze, No rales, Diminished Cardiovascular: Regular rate, Regular Rhythm, Normal S1, Normal S2 Abdomen: Bowel Sounds Present, Soft, Non Tender, Obese, - - + Ostomy and suprapubic catheter site intact Extremities: No clubbing, No cyanosis, - - Left AKA Skin: - - No significant change from previous Musculoskeletal: No Muscle Wasting Lymphatic: No Cervical, Supraclavicular, or Inguinal Adenopathy Neurological: Neuro grossly intact Psych/Mental Status: Normal Affect, Appropriate Labs (Last 48 Hours) 01/30/19 01/30/19 01/30/19 11:23 16:02 16:56 WBC RBC Hgb Hct MCV MCH MCHC RDW Std Deviation RDW Coeff of Raji Plt Count MPV Immature Gran % (Auto) Neut % (Auto) Lymph % (Auto) Cameron % (Auto) Eos % (Auto) Baso % (Auto) Absolute Neuts (auto) Absolute Lymphs (auto) Nucleated RBC % PT INR APTT Sodium Potassium Chloride Carbon Dioxide Anion Gap BUN Creatinine Estim Creat Clear Calc Est GFR (MDRD) Af Amer Est GFR (MDRD) Non-Af BUN/Creatinine Ratio Glucose Hemoglobin A1c Lactic Acid Calcium Phosphorus Total Bilirubin AST ALT Alkaline Phosphatase Total Protein Albumin Globulin Albumin/Globulin Ratio Lipase TSH Hep Bs Antigen Hep Bs Antibody POC Glucose 120 H 111 H 147 H 01/30/19 01/30/19 01/31/19 17:34 21:14 05:59 WBC RBC Hgb Hct MCV MCH MCHC RDW Std Deviation RDW Coeff of Raji Plt Count MPV Immature Gran % (Auto) Neut % (Auto) Lymph % (Auto) Cameron % (Auto) Eos % (Auto) Baso % (Auto) Absolute Neuts (auto) Absolute Lymphs (auto) Nucleated RBC % PT INR APTT Sodium Potassium Chloride Carbon Dioxide Anion Gap BUN Creatinine Estim Creat Clear Calc Est GFR (MDRD) Af Amer Est GFR (MDRD) Non-Af BUN/Creatinine Ratio Glucose Hemoglobin A1c Lactic Acid Calcium Phosphorus Total Bilirubin AST ALT Alkaline Phosphatase Total Protein Albumin Globulin Albumin/Globulin Ratio Lipase TSH Hep Bs Antigen Non-Reactive Hep Bs Antibody Non-Reactive POC Glucose 133 H 99 01/31/19 01/31/19 01/31/19 06:05 06:05 06:05 WBC 8.8 RBC 2.59 L Hgb 7.3 L Hct 23.0 L MCV 88.8 MCH 28.2 MCHC 31.7 L RDW Std Deviation 50.2 H RDW Coeff of Raji 15.6 H Plt Count 286 MPV 9.2 Immature Gran % (Auto) 1.400 H Neut % (Auto) 65.9 Lymph % (Auto) 10.7 L Cameron % (Auto) 8.6 Eos % (Auto) 12.9 H Baso % (Auto) 0.5 Absolute Neuts (auto) 5.8 Absolute Lymphs (auto) 0.94 Nucleated RBC % 0 PT INR APTT Sodium Cancelled 135 L Potassium Cancelled 4.0 Chloride Cancelled 103 Carbon Dioxide Cancelled 22.0 Anion Gap Cancelled 10 BUN Cancelled 63 H Creatinine Cancelled 2.63 H Estim Creat Clear Calc Cancelled 25.06 Est GFR (MDRD) Af Amer Cancelled 31 L Est GFR (MDRD) Non-Af Cancelled 25 L BUN/Creatinine Ratio Cancelled 24.0 H Glucose Cancelled 93 Hemoglobin A1c Lactic Acid Calcium Cancelled 7.6 L Phosphorus Total Bilirubin 0.20 AST 20 ALT 59 Alkaline Phosphatase 81 Total Protein 5.2 L Albumin 1.6 L Globulin 3.6 Albumin/Globulin Ratio 0.4 L Lipase 66 L TSH Hep Bs Antigen Hep Bs Antibody POC Glucose 01/31/19 01/31/19 01/31/19 06:55 11:16 17:18 WBC RBC Hgb Hct MCV MCH MCHC RDW Std Deviation RDW Coeff of Raji Plt Count MPV Immature Gran % (Auto) Neut % (Auto) Lymph % (Auto) Cameron % (Auto) Eos % (Auto) Baso % (Auto) Absolute Neuts (auto) Absolute Lymphs (auto) Nucleated RBC % PT INR APTT Sodium Potassium Chloride Carbon Dioxide Anion Gap BUN Creatinine Estim Creat Clear Calc Est GFR (MDRD) Af Amer Est GFR (MDRD) Non-Af BUN/Creatinine Ratio Glucose Hemoglobin A1c Lactic Acid 0.4 Calcium Phosphorus Total Bilirubin AST ALT Alkaline Phosphatase Total Protein Albumin Globulin Albumin/Globulin Ratio Lipase TSH Hep Bs Antigen Hep Bs Antibody POC Glucose 116 H 125 H 01/31/19 02/01/19 02/01/19 21:06 05:28 05:28 WBC RBC Hgb Hct MCV MCH MCHC RDW Std Deviation RDW Coeff of Raji Plt Count MPV Immature Gran % (Auto) Neut % (Auto) Lymph % (Auto) Cameron % (Auto) Eos % (Auto) Baso % (Auto) Absolute Neuts (auto) Absolute Lymphs (auto) Nucleated RBC % PT 16.5 H INR 1.4 APTT 45.5 H Sodium 136 Potassium 3.8 Chloride 101 Carbon Dioxide 26.0 Anion Gap BUN 37 H Creatinine 2.06 H Estim Creat Clear Calc 31.99 Est GFR (MDRD) Af Amer 41 L Est GFR (MDRD) Non-Af 34 L BUN/Creatinine Ratio 18.0 Glucose 116 H Hemoglobin A1c Lactic Acid Calcium 7.8 L Phosphorus 3.4 Total Bilirubin AST ALT Alkaline Phosphatase Total Protein Albumin 1.7 L Globulin Albumin/Globulin Ratio Lipase TSH 1.46 Hep Bs Antigen Hep Bs Antibody POC Glucose 140 H 02/01/19 02/01/19 02/01/19 05:32 06:05 06:05 WBC 8.1 RBC 2.74 L Hgb 7.6 L Hct 24.9 L MCV 90.9 MCH 27.7 MCHC 30.5 L RDW Std Deviation 50.9 H RDW Coeff of Raji 15.4 H Plt Count 278 MPV 8.9 Immature Gran % (Auto) 0.900 Neut % (Auto) 66.5 Lymph % (Auto) 10.3 L Cameron % (Auto) 9.9 Eos % (Auto) 11.9 H Baso % (Auto) 0.5 Absolute Neuts (auto) 5.4 Absolute Lymphs (auto) 0.83 Nucleated RBC % 0 PT INR APTT Sodium Potassium Chloride Carbon Dioxide Anion Gap BUN Creatinine Estim Creat Clear Calc Est GFR (MDRD) Af Amer Est GFR (MDRD) Non-Af BUN/Creatinine Ratio Glucose Hemoglobin A1c 6.1 Lactic Acid Calcium Phosphorus Total Bilirubin AST ALT Alkaline Phosphatase Total Protein Albumin Globulin Albumin/Globulin Ratio Lipase TSH Hep Bs Antigen Hep Bs Antibody POC Glucose 117 H 02/01/19 06:37 WBC RBC Hgb Hct MCV MCH MCHC RDW Std Deviation RDW Coeff of Raji Plt Count MPV Immature Gran % (Auto) Neut % (Auto) Lymph % (Auto) Cameron % (Auto) Eos % (Auto) Baso % (Auto) Absolute Neuts (auto) Absolute Lymphs (auto) Nucleated RBC % PT INR APTT Sodium Potassium Chloride Carbon Dioxide Anion Gap BUN Creatinine Estim Creat Clear Calc Est GFR (MDRD) Af Amer Est GFR (MDRD) Non-Af BUN/Creatinine Ratio Glucose Hemoglobin A1c Lactic Acid Calcium Phosphorus Total Bilirubin AST ALT Alkaline Phosphatase Total Protein Albumin Globulin Albumin/Globulin Ratio Lipase TSH Hep Bs Antigen Hep Bs Antibody POC Glucose 138 H Microbiology 01/30/19 Unknown Stool Stool Occult Blood (DWAYNE) - Final Occult Blood Positive Clinical Impression(s) from Imaging Studies Renal Ultrasound 01/28/19 08:11 IMPRESSION: 1. No hydronephrosis. 2. Severe left renal cortical atrophy. 3. Bilateral simple renal cysts. Electronically Signed: Truman Perez MD ([place]) at 16:54 EST , Service support , Abdomen X-Ray 01/29/19 13:56 IMPRESSION: Moderate general increase in colonic bowel gas and moderate stool without other acute abdominal or pelvic findings. Electronically Signed: Ximena Jain MD at 17:29 EST , Service support , Chest X-Ray 01/30/19 01:55 IMPRESSION: Left-sided pleural effusion with possible left lower lobe collapse. If indicated, follow-up with bronchoscopy or CT chest may further characterize these findings. Asymmetric congestive heart failure versus right perihilar pneumonia. Electronically Signed: Deja Ford MD at 2:18 EST , Service support , Abdomen X-Ray 01/30/19 08:40 IMPRESSION: Prominent air within the colonic markings without definitive air fluid levels to suggest underlying ileus versus obstruction, clinically correlate. Electronically Signed: Saw Verdugo DO at 10:31 EST , Service support , Chest X-Ray 01/30/19 14:25 Chest X-Ray 01/31/19 04:50 IMPRESSION: Stable near complete opacification of the left hemithorax consistent with an underlying effusion and associated consolidation. Right pleural effusion. Electronically Signed: Mimi Romero MD at 10:13 EST Tel , Service support , Chest CT 01/31/19 07:16 IMPRESSION: Bilateral pleural effusions, left greater than right. Extensive consolidation throughout the left lung associated with collapse of the left lower lobe. Right lower lobe consolidation. Pericardial effusion. Subcutaneous edema. Electronically Signed: Mimi Romero MD at 9:14 EST Tel , Service support , Current Medications Acetaminophen (Tylenol) 650 mg PO Q6H PRN PRN PRN Reason: Pain Score 1-3/Temp > 100.7 F Last Admin: 01/31/19 00:12 Dose: 650 mg Documented by: Al Hydroxide/Mg Hydroxide (Mylanta Ii) 30 ml PO Q6H PRN PRN PRN Reason: Gastric Burning Albuterol Sulfate (Ventolin Aerosols) 2.5 mg INHALATION Q2H PRN PRN PRN Reason: SOB/Wheezing Last Admin: 01/31/19 09:05 Dose: 2.5 mg Documented by: Ascorbic Acid (Vitamin C) 1,000 mg PO BID [facility] Last Admin: 01/31/19 21:05 Dose: 1,000 mg Documented by: Atorvastatin Calcium (Lipitor) 10 mg PO QHS [facility] Last Admin: 01/31/19 21:04 Dose: 10 mg Documented by: Colesevelam HCl (Welchol) 625 mg PO BID [facility] Last Admin: 01/31/19 21:04 Dose: 625 mg Documented by: [facility]ous [facility] ([facility] S[facility]) [facility] Last Admin: 01/31/19 17:10 Dose: 325 mg Documented by: Gabapentin (Neurontin) 300 mg PO QHS [facility] Last Admin: 01/31/19 21:04 Dose: 300 mg Documented by: Glucagon () 1 mg IM .X1 PRN PRN Reason: Hypoglycemia Guaifenesin (Robitussin) 20 ml PO Q4H PRN PRN PRN Reason: COUGH Heparin Sodium (Porcine) () 2,500 units IV UD PRN PRN Reason: Dialysis Cath Heparin Flush Sodium Chloride () 250 mls @ 15 mls/hr IV .[id number] PRN PRN Reason: Saline Flush Sodium Chloride () 250 mls @ 15 mls/hr IV .[id number] PRN PRN Reason: Additional IVPB Infusion Dextrose (Dextrose 10%-Water) 250 mls @ 999 mls/hr IV .Q16M PRN; Protocol PRN Reason: HYPOGLYCEMIA Cefazolin Sodium 2 gm/ Sodium (Chloride) 110 mls @ 150 mls/hr IV X1 ONE Stop: 02/01/19 21:16 Insulin Human Lispro (Humalog Kwikpen (Bkc)) 0 unit SC [facility]; Protocol Last Admin: 02/01/19 06:44 Dose: Not Given Documented by: Levothyroxine Sodium (Synthroid) 25 mcg PO DAILY@0600 [facility] Last Admin: 02/01/19 06:43 Dose: Not Given Documented by: Melatonin (Melatonin) 3 mg PO QHS PRN PRN PRN Reason: INSOMNIA Last Admin: 01/31/19 02:30 Dose: 3 mg Documented by: Metoprolol Tartrate (Lopressor (Beta Roxy)) 25 mg PO BID [facility] Last Admin: 01/29/19 09:17 Dose: Not Given Documented by: Morphine Sulfate () 2 mg IV Q3H PRN PRN PRN Reason: Pain Score 6-10/10 Last Admin: 01/31/19 03:58 Dose: 2 mg Documented by: Multivitamins/Minerals (Multivitamin With Minerals) 1 tablet PO DAILY@0800 [facility] Last Admin: 01/31/19 10:00 Dose: 1 tablet Documented by: Nitroglycerin (Nitrostat) 0.4 mg SUBLINGUAL Q5M PRN PRN Reason: CARDIAC/CHEST PAIN Ondansetron HCl (Zofran) 4 mg IV Q8H PRN PRN PRN Reason: NAUSEA/VOMITING Oxycodone HCl (Oxyir) 5 mg PO Q4H PRN PRN PRN Reason: Pain Score 4-5/10 Last Admin: 01/31/19 17:10 Dose: 5 mg Documented by: Pantoprazole Sodium (Protonix) 40 mg PO DAILY [facility] Last Admin: 01/31/19 10:00 Dose: 40 mg Documented by: Polyethylene Glycol (Miralax) 17 gm PO DAILY PRN PRN PRN Reason: Constipation Last Admin: 01/30/19 11:25 Dose: 17 gm Documented by: Senna (Senokot) 2 tablet PO BID PRN PRN PRN Reason: CONSTIPATION Senna/Docusate Sodium (Senokot-S, Itzel-Colace) 2 tablet PO BID PRN PRN PRN Reason: Constipation Last Admin: 01/30/19 10:00 Dose: 2 tablet Documented by: Sodium Bicarbonate (Sodium Bicarbonate) 1,300 mg PO TID [facility] Last Admin: 02/01/19 06:43 Dose: Not Given Documented by: Sodium Chloride () 10 - 40 ml IV UD PRN PRN Reason: SALINE FLUSH Last Admin: 01/30/19 06:49 Dose: 10 ml Documented by: Sodium Chloride () 10 ml IV UD PRN PRN Reason: Dialysis Catheter Flush Sucralfate (Carafate) 1 gm PO 1HR_ACHS [facility] Last Admin: 02/01/19 06:44 Dose: Not Given Documented by: Medical Necessity - Tobacco Use Smoking Status: Never smoker Assessment/Plan All Active Problems (Last Reviewed 07/27/18 @ 13:58 by Kaleigh Braden PA-C) Solitary kidney (Acute) Acute kidney injury on CKD stage III (Acute) Blister of left leg without infection (Acute) Hypotension (Acute) Probable sepsis (Acute) Infected pressure ulcer (Acute) Abdominal pain (Acute) Acute kidney injury (Acute) Septic shock (Acute) Pressure ulcer of sacral region, stage 3 (Acute) Scrotal ulcer (Acute) Complicated UTI (urinary tract infection) (Acute) Constipation (Acute) Pressure ulcer of perianal region (Resolved) Pressure ulcer of buttock (Resolved) UTI (urinary tract infection) (Acute) RECOMMENDATIONS: 1. Ongoing volume optimization with dialysis per nephrology recommendations. 2. Wean supplemental oxygen to maintain saturations at or above 90%. 3. Encourage incentive spirometer use. IMPRESSIONS: 1. Acute hypoxemic respiratory insufficiency/shortness of breath The patient's plain film chest x-ray revealed findings of near complete opacification of the left hemithorax. A follow-up chest CT completed on January 31 revealed significant bilateral pleural effusions, left greater than right with associated compressive atelectasis. The patient is in need of further volume optimization with hemodialysis per nephrology recommendations. Wean supplemental oxygen as tolerated to maintain saturations at or above 90%. Encourage incentive spirometer use. 2. Acute kidney injury Nephrology is currently following to assist with medical management. The patient's renal function has not recovered despite volume resuscitation. In fact, the patient is now volume overloaded and in need of optimization. Therefore, a temporary hemodialysis catheter was placed and the patient was started on hemodialysis. There are tentative plans for tunneled dialysis line to be placed. 3. Anemia of chronic disease Continue to monitor H&H daily with plans to transfuse if hemoglobin drops below 7 g/dL. 4. History of osteomyelitis/chronic decubitus ulcers/diabetes mellitus/hypertension/hyperlipidemia/hypothyroidism Complicates care, management, recovery and prognosis. Continue home medications as indicated. This note was generated with [employer] software. It may contain incorrect words, spelling, and punctuation that were not noted in checking the note before signing. Code Visit Inpatient E&M: 78403 Subs Hosp L2
--- NOTE | 2019-02-01 11:06 | CASEMGMT ---
YOVANY LUNA NOTE: Pt will need new dialysis @ discharge. Pt unable to tolerate sitting up in chair for length of dialysis. To room to discuss options for dialysis @ discharge. Pt made aware of options of going to a SNF that does on-site dialysis or going to [facility]ACH. Pt has been to [facility] and states wishes to return there. Call placed to Lilliam @ [facility] and referral made. Referral packet faxed at this time. [facility] ([facility]) Contact/Intake: Lilliam: [phone] Maryanne PEREIRA RN CM
--- NOTE | 2019-02-01 11:30 | PCM.PN.REN ---
Patient Problems: Active and Suspected Problems (Last Reviewed 07/27/18 @ 13:58 by Kaleigh Braden PA-C) Solitary kidney (Acute) Acute kidney injury on CKD stage III (Acute) Subjective: No new complaints - Physical Exam Vitals/I&O's: Vital Signs Temp Pulse Resp BP Pulse Ox 97.9 F 107 H 16 126/58 H 97 02/01/19 09:00 02/01/19 09:00 02/01/19 09:00 02/01/19 09:00 02/01/19 09:00 Oxygen Flow Rate (L/min) 1 Oxygen Delivery Method Nasal Cannula Weight: 79.3 kg Body Mass Index (BMI) 25.0 Finger Stick Blood Glucose 160 Intake and Output for Last 24 Hours 01/30/19 01/31/19 02/01/19 23:59 23:59 23:59 Intake Total 1700 / 1900 1040 / 1040 Output Total 300 / 350 550 / 550 250 / 250 Balance 1400 / 1550 490 / 490 -250 / -250 General: Alert, Oriented x3, Cooperative HEENT: Atraumatic, PERRLA, EOMI, Normocephalic Neck: Supple, No JVD, Negative Carotid Bruits Lungs: Clear to auscultation, Normal air movement Cardiovascular: Regular rate, No murmurs Abdomen: Bowel Sounds Present, Soft, Non Tender Extremities: No edema, Capillary Refill Less than 3 Seconds Skin: No rashes, No breakdown Musculoskeletal: No Tenderness to Palpation of Joints or Extremities Neurological: Cranial nerves II-XII grossly intact Psych/Mental Status: Normal Affect, Appropriate Microbiology Past 72 Hours 01/30/19 Unknown Stool Stool Occult Blood (DWAYNE) - Final Occult Blood Positive Laboratory Results 01/31/19 11:16: POC Glucose 116 H 01/31/19 17:18: POC Glucose 125 H 01/31/19 21:06: POC Glucose 140 H 02/01/19 05:28: Sodium 136, Potassium 3.8, Chloride 101, Carbon Dioxide 26.0, BUN 37 H, Creatinine 2.06 H, Estim Creat Clear Calc 31.99, Est GFR (MDRD) Af Amer 41 L, Est GFR (MDRD) Non-Af 34 L, BUN/Creatinine Ratio 18.0, Glucose 116 H, Calcium 7.8 L, Phosphorus 3.4, Albumin 1.7 L, TSH 1.46 02/01/19 05:28: PT 16.5 H, INR 1.4, APTT 45.5 H 02/01/19 05:32: POC Glucose 117 H 02/01/19 06:05: WBC 8.1, RBC 2.74 L, Hgb 7.6 L, Hct 24.9 L, MCV 90.9, MCH 27.7, MCHC 30.5 L, RDW Std Deviation 50.9 H, RDW Coeff of Raji 15.4 H, Plt Count 278, MPV 8.9, Immature Gran % (Auto) 0.900, Neut % (Auto) 66.5, Lymph % (Auto) 10.3 L, Waller % (Auto) 9.9, Eos % (Auto) 11.9 H, Baso % (Auto) 0.5, Absolute Neuts (auto) 5.4, Absolute Lymphs (auto) 0.83, Nucleated RBC % 0 02/01/19 06:05: Hemoglobin A1c 6.1 02/01/19 06:37: POC Glucose 138 H Current Medications Acetaminophen (Tylenol) 650 mg PO Q6H PRN PRN PRN Reason: Pain Score 1-3/Temp > 100.7 F Last Admin: 01/31/19 00:12 Dose: 650 mg Documented by: Al Hydroxide/Mg Hydroxide (Mylanta Ii) 30 ml PO Q6H PRN PRN PRN Reason: Gastric Burning Albuterol Sulfate (Ventolin Aerosols) 2.5 mg INHALATION Q2H PRN PRN PRN Reason: SOB/Wheezing Last Admin: 01/31/19 09:05 Dose: 2.5 mg Documented by: Ascorbic Acid (Vitamin C) 1,000 mg PO BID [facility] Last Admin: 01/31/19 21:05 Dose: 1,000 mg Documented by: Atorvastatin Calcium (Lipitor) 10 mg PO QHS [facility] Last Admin: 01/31/19 21:04 Dose: 10 mg Documented by: Colesevelam HCl (Welchol) 625 mg PO BID [facility] Last Admin: 01/31/19 21:04 Dose: 625 mg Documented by: Ferrous Sulf[facility] ([facility]ous Sulfate) [facility] Last Admin: 01/31/19 17:10 Dose: 325 mg Documented by: Gabapentin (Neurontin) 300 mg PO QHS [facility] Last Admin: 01/31/19 21:04 Dose: 300 mg Documented by: Glucagon () 1 mg IM .X1 PRN PRN Reason: Hypoglycemia Guaifenesin (Robitussin) 20 ml PO Q4H PRN PRN PRN Reason: COUGH Heparin Sodium (Porcine) () 2,500 units IV UD PRN PRN Reason: Dialysis Cath Heparin Flush Sodium Chloride () 250 mls @ 15 mls/hr IV .[id number] PRN PRN Reason: Saline Flush Sodium Chloride () 250 mls @ 15 mls/hr IV .[id number] PRN PRN Reason: Additional IVPB Infusion Dextrose (Dextrose 10%-Water) 250 mls @ 999 mls/hr IV .Q16M PRN; Protocol PRN Reason: HYPOGLYCEMIA Cefazolin Sodium 2 gm/ Sodium (Chloride) 110 mls @ 150 mls/hr IV X1 ONE Stop: 02/01/19 21:16 Insulin Human Lispro (Humalog Kwikpen (Bkc)) 0 unit SC [facility]; Protocol Last Admin: 02/01/19 11:25 Dose: Not Given Documented by: Levothyroxine Sodium (Synthroid) 25 mcg PO DAILY@0600 [facility] Last Admin: 02/01/19 06:43 Dose: Not Given Documented by: Melatonin (Melatonin) 3 mg PO QHS PRN PRN PRN Reason: INSOMNIA Last Admin: 01/31/19 02:30 Dose: 3 mg Documented by: Metoprolol Tartrate (Lopressor (Beta Roxy)) 25 mg PO BID [facility] Last Admin: 01/29/19 09:17 Dose: Not Given Documented by: Morphine Sulfate () 2 mg IV Q3H PRN PRN PRN Reason: Pain Score 6-10/10 Last Admin: 01/31/19 03:58 Dose: 2 mg Documented by: Multivitamins/Minerals (Multivitamin With Minerals) 1 tablet PO DAILY@0800 [facility] Last Admin: 01/31/19 10:00 Dose: 1 tablet Documented by: Nitroglycerin (Nitrostat) 0.4 mg SUBLINGUAL Q5M PRN PRN Reason: CARDIAC/CHEST PAIN Ondansetron HCl (Zofran) 4 mg IV Q8H PRN PRN PRN Reason: NAUSEA/VOMITING Oxycodone HCl (Oxyir) 5 mg PO Q4H PRN PRN PRN Reason: Pain Score 4-5/10 Last Admin: 01/31/19 17:10 Dose: 5 mg Documented by: Pantoprazole Sodium (Protonix) 40 mg PO DAILY [facility] Last Admin: 01/31/19 10:00 Dose: 40 mg Documented by: Polyethylene Glycol (Miralax) 17 gm PO DAILY PRN PRN PRN Reason: Constipation Last Admin: 01/30/19 11:25 Dose: 17 gm Documented by: Senna (Senokot) 2 tablet PO BID PRN PRN PRN Reason: CONSTIPATION Senna/Docusate Sodium (Senokot-S, Itzel-Colace) 2 tablet PO BID PRN PRN PRN Reason: Constipation Last Admin: 01/30/19 10:00 Dose: 2 tablet Documented by: Sodium Bicarbonate (Sodium Bicarbonate) 1,300 mg PO TID [facility] Last Admin: 02/01/19 06:43 Dose: Not Given Documented by: Sodium Chloride () 10 - 40 ml IV UD PRN PRN Reason: SALINE FLUSH Last Admin: 01/30/19 06:49 Dose: 10 ml Documented by: Sodium Chloride () 10 ml IV UD PRN PRN Reason: Dialysis Catheter Flush Sucralfate (Carafate) 1 gm PO 1HR_ACHS [facility] Last Admin: 02/01/19 06:44 Dose: Not Given Documented by: Medical Necessity - Tobacco Use Smoking Status: Never smoker Assessment/Plan All Active Problems (Last Reviewed 07/27/18 @ 13:58 by Kaleigh Braden PA-C) Solitary kidney (Acute) Acute kidney injury on CKD stage III (Acute) Blister of left leg without infection (Acute) Hypotension (Acute) Probable sepsis (Acute) Infected pressure ulcer (Acute) Abdominal pain (Acute) Acute kidney injury (Acute) Septic shock (Acute) Pressure ulcer of sacral region, stage 3 (Acute) Scrotal ulcer (Acute) Complicated UTI (urinary tract infection) (Acute) Constipation (Acute) Pressure ulcer of perianal region (Resolved) Pressure ulcer of buttock (Resolved) UTI (urinary tract infection) (Acute) Acute renal failure. Hyperkalemia. Potassium levels are acceptable. Renal ultrasound with atrophic left kidney which is not new. Right kidney has been draining okay Urine analysis consistent with UTI His baseline creatinine was 1.2 as of January 14. Slowly increased by the end of hospitalization over there. Apparently he had several ulcer at the site of ileal conduit and he ended up having a suprapubic catheter placed at that time URSZULA is likely ATN. had HD over the weekend due to fluid overload. continue HD for now. Tunneled line today. would start working on dialysis unit placement as well. dc oral bicarbonate.
[2019-02-01 12:35] LABS: Bedside Glucose 111 mg/dL (70-110)
[2019-02-01 12:41] LABS: Bedside Glucose 100 mg/dL (70-110)
[2019-02-01] MEDS: Cefazolin 2 GM in 0.9% Normal Saline 100 ML IV (12:58)
--- NOTE | 2019-02-01 13:51 | OP.PCM_ITS ---
Problem List (1) Anemia Status: Chronic Qualifiers: Anemia type: iron deficiency Iron deficiency anemia type: unspecified iron deficiency Qualified Code(s): D50.9 - Iron deficiency anemia, unspecified Report of Operation Date of Procedure: 02/01/19 Pre-Operative Diagnosis: Acute and chronic renal insufficiency in need of dialysis access Post-Operative Diagnosis: Same Surgery/Procedure Performed:: Left internal jugular pre-curved 23 cm palindrome catheter placement Description of Surgical Findings:: Timeout and informed consent was obtained. 73-year-old gent was examined placement table. Monitored anesthesia care. Ancef 2 g given intravenously. The left neck and chest were sterilely prepped and draped. Ultrasound was used to identify the left internal jugular vein. Under ultrasound guidance 1% lidocaine mixed 50-50 with 0.5% Marcaine was instilled as a local anesthetic. A total cc was used. Local was instilled under ultrasound guidance. Micropuncture needle inserted micropuncture wire inserted 6 Chinese short sheath inserted wire was confirmed positioning using fluoroscopy. Using an 035 J-wire upstaged. Local instilled down upon the chest wall. The 23 cm catheter was tunneled from the chest to the neck. Serial dilatation was performed this was somewhat difficult. That the angulation of the vein wanted to had more toward the axillary vein rather than centrally. With some manipulation I was able to get it to go centrally. Then carefully with close control placed the sheath dilator. I then for further assistance with the catheter over the wire through the sheath. The catheter was positioned within the SVC. The wire was removed. The catheter appeared to have somewhat of a curling loop to it but this did not appear to obstruct flow. Upon palpation the catheter palpates to be in normal position. I did try to several times to adjust and get it to lie in a slightly smoother position but that was not feasible and so as the catheter was flushing I decided to leave it in its current position which was nice and smooth and curvilinear. I secured skin with 3-0 nylon. The neck site was closed with interrupted 5-0 Vicryl and several simple sutures of 5-0 Vicryl he obtain hemostasis. Telfa OpSite dressing applied. Silver was applied to the exit site. The catheter aspirated easily and then it was flushed with 2 cc of heparinized saline per channel. Sponge and instrument and needle counts reported surgical correct. Blood loss was 500 cc. Tolerated procedure well was taken to recovery area in satisfactory condition. Start potable chest x-ray is pending. Specimens none. Drains none. Blood loss 100 cc Marco A Alarcon M.D., F.A.C.S. Type of Anesthesia:: Local MAC Anesthesiologist: Chikis Sharif
[2019-02-01] MEDS: Bupivacaine Mpf 0.5% 30 ML VIAL (13:53)
[2019-02-01] MEDS: Heparin 10,000 UNITS/10 ML Vial 10000 UNITS (13:53)
--- NOTE | 2019-02-01 14:12 | CASEMGMT ---
Addendum entered by Raven Muller 02/01/19 16:20: CXR confirming Tunneled dialysis catheter in correct placement faxed to [facility] at this time. Original Note: YOVANY LUNA NOTE: Call recevied from Lilliam from [facility]. She states they are able to accept pt and will start pre-cert. Maryanne PEREIRA RN CM
--- NOTE | 2019-02-01 14:16 | PN_ITS ---
Patient Problems: Active and Suspected Problems (Last Reviewed 07/27/18 @ 13:58 by Kaleigh Braden PA-C) Solitary kidney (Acute) Acute kidney injury on CKD stage III (Acute) Reason for Visit: Follow-up on URSZULA Subjective: Patient was seen and examined. He had a tunneled dialysis catheter done today. Objective: Physical exam: General: Alert, Oriented x3, Cooperative, No apparent distress HEENT: Atraumatic, PERRLA, EOMI, Normocephalic Oral: Moist Mucosa Neck: Supple, No JVD, Negative Carotid Bruits Lungs: C decreased breath sounds in left mid and lower lung cavanaugh, no wheezing or crackles. on 3L of oxygen Cardiovascular: Regular rate, Regular Rhythm, Normal S1, Normal S2, No murmurs Abdomen: Bowel Sounds Present, Soft, Non Tender, Non-Distended, No Hepato- splenomegaly, - - colostomy bag in place; suprapubic catheter Skin: - - right hip disarticulated, left AKA Musculoskeletal: No Tenderness to Palpation of Joints or Extremities Lymphatic: No Cervical, Supraclavicular, or Inguinal Adenopathy Neurological: Cranial nerves II-XII grossly intact Psych/Mental Status: Normal Affect, Appropriate, Alert and oriented to time, place, person, mood and affect Vitals/I&O's: Vital Signs Temp Pulse Resp BP Pulse Ox 97.9 F 107 H 16 126/58 H 97 02/01/19 09:00 02/01/19 09:00 02/01/19 09:00 02/01/19 09:00 02/01/19 09:00 Oxygen Flow Rate (L/min) 1 Oxygen Delivery Method Nasal Cannula Weight: 79.3 kg Body Mass Index (BMI) 25.0 Finger Stick Blood Glucose 160 Intake and Output for Last 24 Hours 01/30/19 01/31/19 02/01/19 23:59 23:59 23:59 Intake Total 1700 / 1900 1040 / 1040 Output Total 300 / 350 550 / 550 250 / 250 Balance 1400 / 1550 490 / 490 -250 / -250 Microbiology Past 72 Hours 01/30/19 Unknown Stool Stool Occult Blood (DWAYNE) - Final Occult Blood Positive Laboratory Results 01/31/19 17:18: POC Glucose 125 H 01/31/19 21:06: POC Glucose 140 H 02/01/19 05:28: Sodium 136, Potassium 3.8, Chloride 101, Carbon Dioxide 26.0, BUN 37 H, Creatinine 2.06 H, Estim Creat Clear Calc 31.99, Est GFR (MDRD) Af Amer 41 L, Est GFR (MDRD) Non-Af 34 L, BUN/Creatinine Ratio 18.0, Glucose 116 H, Calcium 7.8 L, Phosphorus 3.4, Albumin 1.7 L, TSH 1.46 02/01/19 05:28: PT 16.5 H, INR 1.4, APTT 45.5 H 02/01/19 05:32: POC Glucose 117 H 02/01/19 06:05: WBC 8.1, RBC 2.74 L, Hgb 7.6 L, Hct 24.9 L, MCV 90.9, MCH 27.7, MCHC 30.5 L, RDW Std Deviation 50.9 H, RDW Coeff of Raji 15.4 H, Plt Count 278, MPV 8.9, Immature Gran % (Auto) 0.900, Neut % (Auto) 66.5, Lymph % (Auto) 10.3 L , [place] % (Auto) 9.9, Eos % (Auto) 11.9 H, Baso % (Auto) 0.5, Absolute Neuts (auto) 5.4, Absolute Lymphs (auto) 0.83, Nucleated RBC % 0 02/01/19 06:05: Hemoglobin A1c 6.1 02/01/19 06:37: POC Glucose 138 H 02/01/19 11:19: POC Glucose 111 H 02/01/19 12:32: POC Glucose 100 Current Medications Acetaminophen (Tylenol) 650 mg PO Q6H PRN PRN PRN Reason: Pain Score 1-3/Temp > 100.7 F Last Admin: 01/31/19 00:12 Dose: 650 mg Documented by: Al Hydroxide/Mg Hydroxide (Mylanta Ii) 30 ml PO Q6H PRN PRN PRN Reason: Gastric Burning Albuterol Sulfate (Ventolin Aerosols) 2.5 mg INHALATION Q2H PRN PRN PRN Reason: SOB/Wheezing Last Admin: 01/31/19 09:05 Dose: 2.5 mg Documented by: Ascorbic Acid (Vitamin C) 1,000 mg PO BID BITA Last Admin: 01/31/19 21:05 Dose: 1,000 mg Documented by: Atorvastatin Calcium (Lipitor) 10 mg PO QHS REPLACED BY [facility] Last Admin: 01/31/19 21:04 Dose: 10 mg Documented by: Colesevelam HCl (Welchol) 625 mg PO BID REPLACED BY [facility] Last Admin: 01/31/19 21:04 Dose: 625 mg Documented by: Ferrous Sulf[facility] ([facility]ous Sulfate) [facility] Last Admin: 01/31/19 17:10 Dose: 325 mg Documented by: Gabapentin (Neurontin) 300 mg PO QHS REPLACED BY [facility] Last Admin: 01/31/19 21:04 Dose: 300 mg Documented by: Glucagon () 1 mg IM .X1 PRN PRN Reason: Hypoglycemia Guaifenesin (Robitussin) 20 ml PO Q4H PRN PRN PRN Reason: COUGH Heparin Sodium (Porcine) () 2,500 units IV UD PRN PRN Reason: Dialysis Cath Heparin Flush Sodium Chloride () 250 mls @ 15 mls/hr IV .[id number] PRN PRN Reason: Saline Flush Sodium Chloride () 250 mls @ 15 mls/hr IV .[id number] PRN PRN Reason: Additional IVPB Infusion Dextrose (Dextrose 10%-Water) 250 mls @ 999 mls/hr IV .Q16M PRN; Protocol PRN Reason: HYPOGLYCEMIA Cefazolin Sodium 2 gm/ Sodium (Chloride) 110 mls @ 150 mls/hr IV X1 ONE Stop: 02/01/19 21:16 Last Admin: 02/01/19 12:58 Dose: 150 mls/hr Documented by: Sodium Chloride () 1,000 mls @ 100 mls/hr IV .Q10H REPLACED BY [facility] Insulin Human Lispro (Humalog Kwikpen (Bkc)) 0 unit SC [facility]; Protocol Last Admin: 02/01/19 11:25 Dose: Not Given Documented by: Levothyroxine Sodium (Synthroid) 25 mcg PO DAILY@0600 REPLACED BY [facility] Last Admin: 02/01/19 06:43 Dose: Not Given Documented by: Melatonin (Melatonin) 3 mg PO QHS PRN PRN PRN Reason: INSOMNIA Last Admin: 01/31/19 02:30 Dose: 3 mg Documented by: Metoprolol Tartrate (Lopressor (Beta Roxy)) 25 mg PO BID REPLACED BY [facility] Last Admin: 01/29/19 09:17 Dose: Not Given Documented by: Morphine Sulfate () 2 mg IV Q3H PRN PRN PRN Reason: Pain Score 6-10/10 Last Admin: 01/31/19 03:58 Dose: 2 mg Documented by: Multivitamins/Minerals (Multivitamin With Minerals) 1 tablet PO DAILY@0800 REPLACED BY [facility] Last Admin: 01/31/19 10:00 Dose: 1 tablet Documented by: Nitroglycerin (Nitrostat) 0.4 mg SUBLINGUAL Q5M PRN PRN Reason: CARDIAC/CHEST PAIN Ondansetron HCl (Zofran) 4 mg IV Q8H PRN PRN PRN Reason: NAUSEA/VOMITING Oxycodone HCl (Oxyir) 5 mg PO Q4H PRN PRN PRN Reason: Pain Score 4-5/10 Last Admin: 01/31/19 17:10 Dose: 5 mg Documented by: Pantoprazole Sodium (Protonix) 40 mg PO DAILY REPLACED BY [facility] Last Admin: 01/31/19 10:00 Dose: 40 mg Documented by: Polyethylene Glycol (Miralax) 17 gm PO DAILY PRN PRN PRN Reason: Constipation Last Admin: 01/30/19 11:25 Dose: 17 gm Documented by: Senna (Senokot) 2 tablet PO BID PRN PRN PRN Reason: CONSTIPATION Senna/Docusate Sodium (Senokot-S, Itzel-Colace) 2 tablet PO BID PRN PRN PRN Reason: Constipation Last Admin: 01/30/19 10:00 Dose: 2 tablet Documented by: Sodium Chloride () 10 - 40 ml IV UD PRN PRN Reason: SALINE FLUSH Last Admin: 01/30/19 06:49 Dose: 10 ml Documented by: Sodium Chloride () 10 ml IV UD PRN PRN Reason: Dialysis Catheter Flush Sucralfate (Carafate) 1 gm PO 1HR_ACHS REPLACED BY [facility] Last Admin: 02/01/19 14:04 Dose: Not Given Documented by: Medical Necessity - Tobacco Use Smoking Status: Never smoker Assessment/Plan All Active Problems (Last Reviewed 07/27/18 @ 13:58 by Kaleigh Braden PA-C) Solitary kidney (Acute) Acute kidney injury on CKD stage III (Acute) Blister of left leg without infection (Acute) Hypotension (Acute) Probable sepsis (Acute) Infected pressure ulcer (Acute) Abdominal pain (Acute) Acute kidney injury (Acute) Septic shock (Acute) Pressure ulcer of sacral region, stage 3 (Acute) Scrotal ulcer (Acute) Complicated UTI (urinary tract infection) (Acute) Constipation (Acute) Pressure ulcer of perianal region (Resolved) Pressure ulcer of buttock (Resolved) UTI (urinary tract infection) (Acute) 1. URSZULA with hyperkalemia, patient is oliguric, Cr is 2.06, baseline Cr 0.8 Status post dialysis by temporary catheter today Outpatient dialysis planned, labs in a.m. 2. Acute hypoxic respiratory insufficiency due to left sided pleural effusion CAT scan of the chest shows bilateral pleural effusion, left greater than right, extensive consolidation throughout the left lung associated with collapse of the left lower lung, right lower lobe consolidation, pericardial effusion, subcutaneous edema Patient is on 2 L of oxygen We will continue to monitor and wean off for SPO2 while patient undergoes fluid removal from dialysis Patient's pulmonary status will need to be reassessed after fluids are taken off from dialysis 3. Acute on chronic anemia, Hb stable at 7.3, will transfuse when hemoglobin is less than 7 4. Constipation, on multiple bowel regimen 5. 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 Type 2 diabetes mellitus, BS is stable, On insulin sliding scale. Will continue to monitor 7. Hypertension, relatively hypotensive, off amlodipine and metoprolol, will continue to monitor 8. Hyperlipidemia, continue on statin. 9. Hypothyroidism, continue on Synthroid 10. DVT prophylaxis -unable to use SCDs or chemoprophylaxis on account of anemia. Code status: Full code Code Visit Inpatient E&M: 41968 Subs Hosp L2
--- NOTE | 2019-02-01 14:57 | RAD_ITS ---
STUDY: X-RAY CHEST REASON FOR EXAM: Male, 73 years old. Catheter placement TECHNIQUE: Frontal view of the chest COMPARISON: 01/31/2019 FINDINGS: There has been interval placement of a left-sided dual-lumen catheter with the tip in the superior vena cava. There is no pneumothorax. The remainder of the examination is unchanged. RAD/CXR for Line Placement IMPRESSION: Satisfactory position of the left-sided dual-lumen catheter. Electronically Signed: Andre Renee, at 16:10 EST Tel , Service support ,
[2019-02-01] MEDS: 0.45% Normal Saline 1,000 ML 100 ML IV (15:21)
[2019-02-01 16:06] LABS: Bedside Glucose 82 mg/dL (70-110)
[2019-02-01 16:35] LABS: Bedside Glucose 131 mg/dL (70-110)
--- NOTE | 2019-02-01 18:40 | DIALYSIS ---
Tx ended 1.5 hours early d/t continuous drop in bp and pt continuing to have c/o chest pressure and difficulty breathing. C slope on CRITline throughout tx. BV -20.2. Dr. Llamas notified and tx ordered to be ended. Fluid balance +100ml. Heparin 1000units/ml close HD CVC ports to fill volume. Report given to YOVANY Luo. Pt stable at this time.
[2019-02-01] MEDS: Albuterol 2.5 MG/3 ML VIAL.NEB. INHALATION (19:00)
[2019-02-01] MEDS: Gabapentin 300 MG Capsule PO (21:53)
[2019-02-01] MEDS: Sucralfate 1 GM Tablet PO (21:53)
[2019-02-01] MEDS: Ascorbic Acid 500 MG Tablet 1000 MG PO (21:53)
[2019-02-01] MEDS: Atorvastatin Calcium 10 MG Tablet PO (21:53)
[2019-02-01 22:10] LABS: Bedside Glucose 156 mg/dL (70-110)
[2019-02-02] VITALS (11 sets, daily range): BP systolic 95–117; BP diastolic 51–59; PULSE 102–111; RESP 16–18; TEMP 36.6–37.7; O2SAT 93–97
[2019-02-02] MEDS: Sucralfate 1 GM Tablet PO ×3 (06:36→21:38)
[2019-02-02] MEDS: Levothyroxine 25 MCG TABLET PO (06:36)
[2019-02-02 06:50] LABS: Bedside Glucose 117 mg/dL (70-110)
[2019-02-02 06:52] LABS: Albumin, Serum 1.5 g/dL (3.2-5.0); BUN 28 mg/dL (7-18); BUN/Creat Ratio 12.9 RATIO (10-20); Calcium,Total 7.6 mg/dL (8.5-10.1); Chloride 100 mmol/L (98-107); Creatinine, Serum 2.17 mg/dL (0.70-1.30); EST Glomerular Filtration Rate 32 mL/min (>60); Est Glom Filt Rate - Afr Amer 38 mL/min (>60); Estimated Creatinine Clearance 30.37 ml/min; Glucose 127 mg/dL (74-106); Phosphorus 3.6 mg/dL (2.5-4.9); Potassium 4.5 mmol/L (3.5-5.1); Sodium Level 136 mmol/L (136-145)
--- NOTE | 2019-02-02 07:11 | PN.SURG_ITS ---
Patient Problems: Active and Suspected Problems (Last Reviewed 07/27/18 @ 13:58 by Kaleigh Braden PA-C) Solitary kidney (Acute) Acute kidney injury on CKD stage III (Acute) Subjective: Patient evaluated resting comfortably in bed. He denies pain at the catheter site. Catheter was used for dialysis. - Physical Exam Vitals/I&O's: Vital Signs Temp Pulse Resp BP Pulse Ox 97.8 F 103 H 18 115/51 L 97 02/02/19 03:45 02/02/19 03:45 02/02/19 03:45 02/02/19 03:45 02/02/19 03:45 Oxygen Flow Rate (L/min) 2 Oxygen Delivery Method Nasal Cannula Weight: 174 lb 13.225 oz Body Mass Index (BMI) 25.0 Finger Stick Blood Glucose 160 Intake and Output for Last 24 Hours 01/31/19 02/01/19 02/02/19 23:59 23:59 23:59 Intake Total 1040 / 1040 436.67 / 436.67 480 / 480 Output Total 550 / 550 400 / 400 Balance 490 / 490 36.67 / 36.67 480 / 480 General: Alert, Oriented x3, Cooperative Neck: - - Left chest tunneled dialysis catheter intact. No active bleeding. No erythema noted. Microbiology Past 72 Hours 01/30/19 Unknown Stool Stool Occult Blood (DWAYNE) - Final Occult Blood Positive Laboratory Results 02/01/19 06:05: Hemoglobin A1c 6.1 02/01/19 11:19: POC Glucose 111 H 02/01/19 12:32: POC Glucose 100 02/01/19 16:01: POC Glucose 82 02/01/19 16:30: POC Glucose 131 H 02/01/19 21:52: POC Glucose 156 H 02/02/19 05:40: Sodium 136, Potassium 4.5, Chloride 100, Carbon Dioxide 27.0, BUN 28 H, Creatinine 2.17 H, Estim Creat Clear Calc 30.37, Est GFR (MDRD) Af Amer 38 L, Est GFR (MDRD) Non-Af 32 L, BUN/Creatinine Ratio 12.9, Glucose 127 H, Calcium 7.6 L, Phosphorus 3.6, Albumin 1.5 L 02/02/19 06:35: POC Glucose 117 H Current Medications Acetaminophen (Tylenol) 650 mg PO Q6H PRN PRN PRN Reason: Pain Score 1-3/Temp > 100.7 F Last Admin: 01/31/19 00:12 Dose: 650 mg Documented by: Al Hydroxide/Mg Hydroxide (Mylanta Ii) 30 ml PO Q6H PRN PRN PRN Reason: Gastric Burning Albuterol Sulfate (Ventolin Aerosols) 2.5 mg INHALATION Q2H PRN PRN PRN Reason: SOB/Wheezing Last Admin: 02/01/19 19:00 Dose: 2.5 mg Documented by: Ascorbic Acid (Vitamin C) 1,000 mg PO BID [facility] Last Admin: 02/01/19 21:53 Dose: 1,000 mg Documented by: Atorvastatin Calcium (Lipitor) 10 mg PO QHS [facility] Last Admin: 02/01/19 21:53 Dose: 10 mg Documented by: Colesevelam HCl (Welchol) 625 mg PO BID [facility] Last Admin: 02/01/19 21:53 Dose: 625 mg Documented by: Ferrous Sulfate (F[facility]ous Sulfate) [facility] Last Admin: 02/01/19 18:18 Dose: Not Given Documented by: Gabapentin (Neurontin) 300 mg PO QHS [facility] Last Admin: 02/01/19 21:53 Dose: 300 mg Documented by: Glucagon () 1 mg IM .X1 PRN PRN Reason: Hypoglycemia Guaifenesin (Robitussin) 20 ml PO Q4H PRN PRN PRN Reason: COUGH Heparin Sodium (Porcine) () 2,500 units IV UD PRN PRN Reason: Dialysis Cath Heparin Flush Sodium Chloride () 250 mls @ 15 mls/hr IV .[id number] PRN PRN Reason: Saline Flush Sodium Chloride () 250 mls @ 15 mls/hr IV .[id number] PRN PRN Reason: Additional IVPB Infusion Dextrose (Dextrose 10%-Water) 250 mls @ 999 mls/hr IV .Q16M PRN; Protocol PRN Reason: HYPOGLYCEMIA Insulin Human Lispro (Humalog Kwmacarenapen (Bkc)) 0 unit SC ACHS [facility]; Protocol Last Admin: 02/02/19 06:37 Dose: Not Given Documented by: Levothyroxine Sodium (Synthroid) 25 mcg PO DAILY@0600 [facility] Last Admin: 02/02/19 06:36 Dose: 25 mcg Documented by: Melatonin (Melatonin) 3 mg PO QHS PRN PRN PRN Reason: INSOMNIA Last Admin: 01/31/19 02:30 Dose: 3 mg Documented by: Metoprolol Tartrate (Lopressor (Beta Roxy)) 25 mg PO BID [facility] Last Admin: 01/29/19 09:17 Dose: Not Given Documented by: Morphine Sulfate () 2 mg IV Q3H PRN PRN PRN Reason: Pain Score 6-10/10 Last Admin: 01/31/19 03:58 Dose: 2 mg Documented by: Multivitamins/Minerals (Multivitamin With Minerals) 1 tablet PO DAILY@0800 [facility] Last Admin: 02/01/19 08:00 Dose: Not Given Documented by: Nitroglycerin (Nitrostat) 0.4 mg SUBLINGUAL Q5M PRN PRN Reason: CARDIAC/CHEST PAIN Ondansetron HCl (Zofran) 4 mg IV Q8H PRN PRN PRN Reason: NAUSEA/VOMITING Oxycodone HCl (Oxyir) 5 mg PO Q4H PRN PRN PRN Reason: Pain Score 4-5/10 Last Admin: 01/31/19 17:10 Dose: 5 mg Documented by: Pantoprazole Sodium (Protonix) 40 mg PO DAILY [facility] Last Admin: 02/01/19 10:00 Dose: Not Given Documented by: Polyethylene Glycol (Miralax) 17 gm PO DAILY PRN PRN PRN Reason: Constipation Last Admin: 01/30/19 11:25 Dose: 17 gm Documented by: Senna (Senokot) 2 tablet PO BID PRN PRN PRN Reason: CONSTIPATION Senna/Docusate Sodium (Senokot-S, Itzel-Colace) 2 tablet PO BID PRN PRN PRN Reason: Constipation Last Admin: 01/30/19 10:00 Dose: 2 tablet Documented by: Sodium Chloride () 10 - 40 ml IV UD PRN PRN Reason: SALINE FLUSH Last Admin: 01/30/19 06:49 Dose: 10 ml Documented by: Sodium Chloride () 10 ml IV UD PRN PRN Reason: Dialysis Catheter Flush Sucralfate (Carafate) 1 gm PO 1HR_ACHS [facility] Last Admin: 02/02/19 06:36 Dose: 1 gm Documented by: Medical Necessity - Tobacco Use Smoking Status: Never smoker Assessment/Plan All Active Problems (Last Reviewed 07/27/18 @ 13:58 by Kaleigh Braden PA-C) Solitary kidney (Acute) Acute kidney injury on CKD stage III (Acute) Blister of left leg without infection (Acute) Hypotension (Acute) Probable sepsis (Acute) Infected pressure ulcer (Acute) Abdominal pain (Acute) Acute kidney injury (Acute) Septic shock (Acute) Pressure ulcer of sacral region, stage 3 (Acute) Scrotal ulcer (Acute) Complicated UTI (urinary tract infection) (Acute) Constipation (Acute) Pressure ulcer of perianal region (Resolved) Pressure ulcer of buttock (Resolved) UTI (urinary tract infection) (Acute) I am following this patient in conjunction with Dr. Alarcon s/p left chest tunneled dialysis catheter Catheter healing well We will sign off at this time Please re-consult if needed Code Visit Inpatient E&M: 33951 Subs Hosp L1 - No charge
--- NOTE | 2019-02-02 08:07 | US_ITS ---
PROCEDURE: ULTRASOUND GUIDED THORACENTESIS. CLINICAL INDICATION: Bilateral pleural effusion. PROCEDURE: The risks, benefits, and alternatives to the procedure were explained to the patient. The specific risks of bleeding, infection, and pneumothorax requiring chest tube insertion were discussed and accepted. Written informed consent was obtained. Ultrasonographic evaluation of the left lower posterior pleural space was carried out. An adequate pocket was identified. The patient was placed in the sitting, upright position. The overlying skin was prepped and draped in sterile fashion. 1% lidocaine was administered subcutaneously for local anesthesia. Under ultrasound guidance, a 6 [place] thoracentesis needle/catheter system was advanced into the left posterior lower pleural fluid collection. Approximately 1450 mL of clear pleural fluid was drained. The catheter was removed, and a sterile dressing was applied. The patient tolerated the procedure well. A chest x-ray was ordered. US/Thoracentesis W US IMPRESSION: Successful sonographic guided thoracentesis on the left with 1450 cc of pleural effusion removed. Electronically Signed: Sivakumar Peoples MD at 12:25 EST Tel [phone], Service support ,
--- NOTE | 2019-02-02 08:09 | PCM.PN.PUL ---
Patient Problems: Active and Suspected Problems (Last Reviewed 07/27/18 @ 13:58 by Kaleigh Braden PA-C) Solitary kidney (Acute) Acute kidney injury on CKD stage III (Acute) Subjective: The patient was seen and examined at the bedside this morning. Events from the last 24 hours have been reviewed. The patient is currently afebrile, hemodynamically stable and maintaining appropriate oxygen saturations on 2 L/min via nasal cannula. The patient underwent successful tunneled dialysis catheter placement yesterday. Postprocedure plain film chest x-ray revealed continued opacification of the left hemithorax. The patient was unable to tolerate a full dialysis session yesterday due to hypotension and complaints of chest pressure and shortness of breath. Objective: The patient's most recent lab work, culture data and imaging studies have all been personally reviewed. - Physical Exam Vitals/I&O's: Vital Signs Temp Pulse Resp BP Pulse Ox 97.8 F 106 H 18 115/51 L 97 02/02/19 03:45 02/02/19 07:00 02/02/19 03:45 02/02/19 03:45 02/02/19 03:45 Oxygen Flow Rate (L/min) 2 Oxygen Delivery Method Nasal Cannula Weight: 174 lb 13.225 oz Body Mass Index (BMI) 25.0 Finger Stick Blood Glucose 160 Intake and Output for Last 24 Hours 01/31/19 02/01/19 02/02/19 23:59 23:59 23:59 Intake Total 1040 / 1040 436.67 / 436.67 480 / 480 Output Total 550 / 550 400 / 400 Balance 490 / 490 36.67 / 36.67 480 / 480 General: Alert, Cooperative, No apparent distress HEENT: Atraumatic, PERRLA, Normocephalic Oral: No Gingival or Mucosal Lesions/ Ulcerations Neck: Supple, No Nodes, Trachea Midline Lungs: No rhonchi, No wheeze, No rales, Diminished Cardiovascular: Regular rate, Regular Rhythm, Normal S1, Normal S2 Abdomen: Bowel Sounds Present, Soft, Non Tender, Obese, - - + Ostomy and suprapubic catheter Extremities: No clubbing, No cyanosis, - - Left AKA Skin: - - No significant change from previous Musculoskeletal: No Muscle Wasting Lymphatic: No Cervical, Supraclavicular, or Inguinal Adenopathy Neurological: Neuro grossly intact Psych/Mental Status: Normal Affect Labs (Last 48 Hours) 01/30/19 01/31/19 01/31/19 17:34 11:16 17:18 WBC RBC Hgb Hct MCV MCH MCHC RDW Std Deviation RDW Coeff of Raji Plt Count MPV Immature Gran % (Auto) Neut % (Auto) Lymph % (Auto) [place] % (Auto) Eos % (Auto) Baso % (Auto) Absolute Neuts (auto) Absolute Lymphs (auto) Nucleated RBC % PT INR APTT Sodium Potassium Chloride Carbon Dioxide BUN Creatinine Estim Creat Clear Calc Est GFR (MDRD) Af Amer Est GFR (MDRD) Non-Af BUN/Creatinine Ratio Glucose Hemoglobin A1c Calcium Phosphorus Albumin TSH Hep Bs Antigen Non-Reactive Hep Bs Antibody Non-Reactive POC Glucose 116 H 125 H 01/31/19 02/01/19 02/01/19 21:06 05:28 05:28 WBC RBC Hgb Hct MCV MCH MCHC RDW Std Deviation RDW Coeff of Raji Plt Count MPV Immature Gran % (Auto) Neut % (Auto) Lymph % (Auto) [place] % (Auto) Eos % (Auto) Baso % (Auto) Absolute Neuts (auto) Absolute Lymphs (auto) Nucleated RBC % PT 16.5 H INR 1.4 APTT 45.5 H Sodium 136 Potassium 3.8 Chloride 101 Carbon Dioxide 26.0 BUN 37 H Creatinine 2.06 H Estim Creat Clear Calc 31.99 Est GFR (MDRD) Af Amer 41 L Est GFR (MDRD) Non-Af 34 L BUN/Creatinine Ratio 18.0 Glucose 116 H Hemoglobin A1c Calcium 7.8 L Phosphorus 3.4 Albumin 1.7 L TSH 1.46 Hep Bs Antigen Hep Bs Antibody POC Glucose 140 H 02/01/19 02/01/19 02/01/19 05:32 06:05 06:05 WBC 8.1 RBC 2.74 L Hgb 7.6 L Hct 24.9 L MCV 90.9 MCH 27.7 MCHC 30.5 L RDW Std Deviation 50.9 H RDW Coeff of Raji 15.4 H Plt Count 278 MPV 8.9 Immature Gran % (Auto) 0.900 Neut % (Auto) 66.5 Lymph % (Auto) 10.3 L [place] % (Auto) 9.9 Eos % (Auto) 11.9 H Baso % (Auto) 0.5 Absolute Neuts (auto) 5.4 Absolute Lymphs (auto) 0.83 Nucleated RBC % 0 PT INR APTT Sodium Potassium Chloride Carbon Dioxide BUN Creatinine Estim Creat Clear Calc Est GFR (MDRD) Af Amer Est GFR (MDRD) Non-Af BUN/Creatinine Ratio Glucose Hemoglobin A1c 6.1 Calcium Phosphorus Albumin TSH Hep Bs Antigen Hep Bs Antibody POC Glucose 117 H 02/01/19 02/01/19 02/01/19 06:37 11:19 12:32 WBC RBC Hgb Hct MCV MCH MCHC RDW Std Deviation RDW Coeff of Raji Plt Count MPV Immature Gran % (Auto) Neut % (Auto) Lymph % (Auto) [place] % (Auto) Eos % (Auto) Baso % (Auto) Absolute Neuts (auto) Absolute Lymphs (auto) Nucleated RBC % PT INR APTT Sodium Potassium Chloride Carbon Dioxide BUN Creatinine Estim Creat Clear Calc Est GFR (MDRD) Af Amer Est GFR (MDRD) Non-Af BUN/Creatinine Ratio Glucose Hemoglobin A1c Calcium Phosphorus Albumin TSH Hep Bs Antigen Hep Bs Antibody POC Glucose 138 H 111 H 100 02/01/19 02/01/19 02/01/19 16:01 16:30 21:52 WBC RBC Hgb Hct MCV MCH MCHC RDW Std Deviation RDW Coeff of Raji Plt Count MPV Immature Gran % (Auto) Neut % (Auto) Lymph % (Auto) [place] % (Auto) Eos % (Auto) Baso % (Auto) Absolute Neuts (auto) Absolute Lymphs (auto) Nucleated RBC % PT INR APTT Sodium Potassium Chloride Carbon Dioxide BUN Creatinine Estim Creat Clear Calc Est GFR (MDRD) Af Amer Est GFR (MDRD) Non-Af BUN/Creatinine Ratio Glucose Hemoglobin A1c Calcium Phosphorus Albumin TSH Hep Bs Antigen Hep Bs Antibody POC Glucose 82 131 H 156 H 02/02/19 02/02/19 05:40 06:35 WBC RBC Hgb Hct MCV MCH MCHC RDW Std Deviation RDW Coeff of Raji Plt Count MPV Immature Gran % (Auto) Neut % (Auto) Lymph % (Auto) [place] % (Auto) Eos % (Auto) Baso % (Auto) Absolute Neuts (auto) Absolute Lymphs (auto) Nucleated RBC % PT INR APTT Sodium 136 Potassium 4.5 Chloride 100 Carbon Dioxide 27.0 BUN 28 H Creatinine 2.17 H Estim Creat Clear Calc 30.37 Est GFR (MDRD) Af Amer 38 L Est GFR (MDRD) Non-Af 32 L BUN/Creatinine Ratio 12.9 Glucose 127 H Hemoglobin A1c Calcium 7.6 L Phosphorus 3.6 Albumin 1.5 L TSH Hep Bs Antigen Hep Bs Antibody POC Glucose 117 H Clinical Impression(s) from Imaging Studies Renal Ultrasound 01/28/19 08:11 IMPRESSION: 1. No hydronephrosis. 2. Severe left renal cortical atrophy. 3. Bilateral simple renal cysts. Electronically Signed: Truman Perez MD ([place]) at 16:54 EST , Service support , Abdomen X-Ray 01/29/19 13:56 IMPRESSION: Moderate general increase in colonic bowel gas and moderate stool without other acute abdominal or pelvic findings. Electronically Signed: Ximena Jain MD at 17:29 EST , Service support , Chest X-Ray 01/30/19 01:55 IMPRESSION: Left-sided pleural effusion with possible left lower lobe collapse. If indicated, follow-up with bronchoscopy or CT chest may further characterize these findings. Asymmetric congestive heart failure versus right perihilar pneumonia. Electronically Signed: Deja Ford MD at 2:18 EST , Service support , Abdomen X-Ray 01/30/19 08:40 IMPRESSION: Prominent air within the colonic markings without definitive air fluid levels to suggest underlying ileus versus obstruction, clinically correlate. Electronically Signed: Saw Verdugo DO at 10:31 EST , Service support , Chest X-Ray 01/30/19 14:25 Chest X-Ray 01/31/19 04:50 IMPRESSION: Stable near complete opacification of the left hemithorax consistent with an underlying effusion and associated consolidation. Right pleural effusion. Electronically Signed: Mimi Romero MD at 10:13 EST Tel , Service support , Chest CT 01/31/19 07:16 IMPRESSION: Bilateral pleural effusions, left greater than right. Extensive consolidation throughout the left lung associated with collapse of the left lower lobe. Right lower lobe consolidation. Pericardial effusion. Subcutaneous edema. Electronically Signed: Mimi Romero MD at 9:14 EST Tel , Service support , Chest X-Ray 02/01/19 14:57 IMPRESSION: Satisfactory position of the left-sided dual-lumen catheter. Electronically Signed: Andre Renee, at 16:10 EST Tel , Service support , Current Medications Acetaminophen (Tylenol) 650 mg PO Q6H PRN PRN PRN Reason: Pain Score 1-3/Temp > 100.7 F Last Admin: 01/31/19 00:12 Dose: 650 mg Documented by: Al Hydroxide/Mg Hydroxide (Mylanta Ii) 30 ml PO Q6H PRN PRN PRN Reason: Gastric Burning Albuterol Sulfate (Ventolin Aerosols) 2.5 mg INHALATION Q2H PRN PRN PRN Reason: SOB/Wheezing Last Admin: 02/01/19 19:00 Dose: 2.5 mg Documented by: Ascorbic Acid (Vitamin C) 1,000 mg PO BID [facility] Last Admin: 02/01/19 21:53 Dose: 1,000 mg Documented by: Atorvastatin Calcium (Lipitor) 10 mg PO QHS [facility] Last Admin: 02/01/19 21:53 Dose: 10 mg Documented by: Colesevelam HCl (Welchol) 625 mg PO BID [facility] Last Admin: 02/01/19 21:53 Dose: 625 mg Documented by: [facility]ous [facility]ous Sulfate) [facility] Last Admin: 02/01/19 18:18 Dose: Not Given Documented by: Gabapentin (Neurontin) 300 mg PO QHS [facility] Last Admin: 02/01/19 21:53 Dose: 300 mg Documented by: Glucagon () 1 mg IM .X1 PRN PRN Reason: Hypoglycemia Guaifenesin (Robitussin) 20 ml PO Q4H PRN PRN PRN Reason: COUGH Heparin Sodium (Porcine) () 2,500 units IV UD PRN PRN Reason: Dialysis Cath Heparin Flush Sodium Chloride () 250 mls @ 15 mls/hr IV .[id number] PRN PRN Reason: Saline Flush Sodium Chloride () 250 mls @ 15 mls/hr IV .[id number] PRN PRN Reason: Additional IVPB Infusion Dextrose (Dextrose 10%-Water) 250 mls @ 999 mls/hr IV .Q16M PRN; Protocol PRN Reason: HYPOGLYCEMIA Insulin Human Lispro (Humalog Kwmacarenapen (Bkc)) 0 unit SC ACHS [facility]; Protocol Last Admin: 02/02/19 06:37 Dose: Not Given Documented by: Levothyroxine Sodium (Synthroid) 25 mcg PO DAILY@0600 [facility] Last Admin: 02/02/19 06:36 Dose: 25 mcg Documented by: Melatonin (Melatonin) 3 mg PO QHS PRN PRN PRN Reason: INSOMNIA Last Admin: 01/31/19 02:30 Dose: 3 mg Documented by: Metoprolol Tartrate (Lopressor (Beta Roxy)) 25 mg PO BID [facility] Last Admin: 01/29/19 09:17 Dose: Not Given Documented by: Morphine Sulfate () 2 mg IV Q3H PRN PRN PRN Reason: Pain Score 6-10/10 Last Admin: 01/31/19 03:58 Dose: 2 mg Documented by: Multivitamins/Minerals (Multivitamin With Minerals) 1 tablet PO DAILY@0800 [facility] Last Admin: 02/01/19 08:00 Dose: Not Given Documented by: Nitroglycerin (Nitrostat) 0.4 mg SUBLINGUAL Q5M PRN PRN Reason: CARDIAC/CHEST PAIN Ondansetron HCl (Zofran) 4 mg IV Q8H PRN PRN PRN Reason: NAUSEA/VOMITING Oxycodone HCl (Oxyir) 5 mg PO Q4H PRN PRN PRN Reason: Pain Score 4-5/10 Last Admin: 01/31/19 17:10 Dose: 5 mg Documented by: Pantoprazole Sodium (Protonix) 40 mg PO DAILY [facility] Last Admin: 02/01/19 10:00 Dose: Not Given Documented by: Polyethylene Glycol (Miralax) 17 gm PO DAILY PRN PRN PRN Reason: Constipation Last Admin: 01/30/19 11:25 Dose: 17 gm Documented by: Senna (Senokot) 2 tablet PO BID PRN PRN PRN Reason: CONSTIPATION Senna/Docusate Sodium (Senokot-S, Itzel-Colace) 2 tablet PO BID PRN PRN PRN Reason: Constipation Last Admin: 01/30/19 10:00 Dose: 2 tablet Documented by: Sodium Chloride () 10 - 40 ml IV UD PRN PRN Reason: SALINE FLUSH Last Admin: 01/30/19 06:49 Dose: 10 ml Documented by: Sodium Chloride () 10 ml IV UD PRN PRN Reason: Dialysis Catheter Flush Sucralfate (Carafate) 1 gm PO 1HR_ACHS BITA Last Admin: 02/02/19 06:36 Dose: 1 gm Documented by: Medical Necessity - Tobacco Use Smoking Status: Never smoker Assessment/Plan All Active Problems (Last Reviewed 07/27/18 @ 13:58 by Kaleigh Braden PA-C) Solitary kidney (Acute) Acute kidney injury on CKD stage III (Acute) Blister of left leg without infection (Acute) Hypotension (Acute) Probable sepsis (Acute) Infected pressure ulcer (Acute) Abdominal pain (Acute) Acute kidney injury (Acute) Septic shock (Acute) Pressure ulcer of sacral region, stage 3 (Acute) Scrotal ulcer (Acute) Complicated UTI (urinary tract infection) (Acute) Constipation (Acute) Pressure ulcer of perianal region (Resolved) Pressure ulcer of buttock (Resolved) UTI (urinary tract infection) (Acute) RECOMMENDATIONS: 1. Ongoing volume optimization with dialysis per nephrology recommendations. 2. Given that the patient did not tolerate full dialysis yesterday, will obtain ultrasound-guided thoracentesis of left pleural space. 3. Send pleural fluid studies for LDH, total protein, cell count, culture, glucose and cytology. Orders have been placed. 4. Wean supplemental oxygen to maintain saturations at or above 90%. 5. Encourage incentive spirometer use. IMPRESSIONS: 1. Acute hypoxemic respiratory insufficiency/shortness of breath The patient's plain film chest x-ray revealed findings of near complete opacification of the left hemithorax. A follow-up chest CT completed on January 31 revealed significant bilateral pleural effusions, left greater than right with associated compressive atelectasis. The patient is in need of further volume optimization with hemodialysis per nephrology recommendations. Wean supplemental oxygen as tolerated to maintain saturations at or above 90%. Encourage incentive spirometer use. Given that the patient did not tolerate his full dialysis session yesterday, will obtain ultrasound-guided thoracentesis of left hemithorax. Pleural fluid study orders have been placed. 2. Acute kidney injury Nephrology is currently following to assist with medical management. The patient's renal function has not recovered despite volume resuscitation. In fact, the patient is now volume overloaded and in need of optimization. Continue hemodialysis support per nephrology recommendations. 3. Anemia of chronic disease Continue to monitor H&H daily with plans to transfuse if hemoglobin drops below 7 g/dL. 4. History of osteomyelitis/chronic decubitus ulcers/diabetes mellitus/hypertension/hyperlipidemia/hypothyroidism Complicates care, management, recovery and prognosis. Continue home medications as indicated. This note was generated with [employer] dictation software. It may contain incorrect words, spelling, and punctuation that were not noted in checking the note before signing. Code Visit Inpatient E&M: 80531 Subs Hosp L2
[2019-02-02] MEDS: Ferrous Sulfate 325 MG Tablet PO (08:24)
[2019-02-02] MEDS: Ascorbic Acid 500 MG Tablet 1000 MG PO ×2 (08:24)
[2019-02-02] MEDS: Multivitamins,Ther W-Minerals Tablet 1 TABLET PO (08:24)
[2019-02-02] MEDS: Pantoprazole Sodium 40 MG Tablet PO (08:24)
[2019-02-02 09:02] LABS: ALB/GLOB Ratio 0.4 RATIO (0.9-2.4); Globulin 3.6 g/dL (2.2-4.2); LDH 152 U/L (87-241); Protein, Total 5.1 g/dL (6.4-8.2)
[2019-02-02 09:04] LABS: International Normalized Ratio 1.4; Prothrombin Time (Protime)PT. 16.7 SECONDS (11.7-14.9)
--- NOTE | 2019-02-02 10:16 | CASEMGMT ---
RN CM Note: Call to Lilliam admissions liason for [facility] in [place]. Message left updating RN CM contact information and requesting call back re insurance precert progress. Radhames IYERN RN ACM
--- NOTE | 2019-02-02 10:41 | PCM.PN.BLA ---
Progress Note patient is in IR now. chart reviewed. planned thoracocentesis today for left sided effusion. had 3 dialysis treatments in a row, did not tolerate much fluid removal yesterday, kept dropping BP. no plans for HD today. STROKE Vital Signs/Narrative: Vital Signs Temp Pulse Resp BP Pulse Ox 02/02/19 09:45 98.0 F 108 H 18 110/54 L 95 02/02/19 07:07 96 02/02/19 07:00 106 H
--- NOTE | 2019-02-02 11:55 | RAD_ITS ---
STUDY: X-RAY CHEST REASON FOR EXAM: Male, 73 years old. POST THORACENTESIS TECHNIQUE: Inspiration and expiration views of the chest COMPARISON: 02/01/2019 FINDINGS: Significant reduction of the left pleural effusion with residual mild to moderate left pleural effusion. There is mild to moderate right pleural effusion, increased since prior. Stable bilateral atelectasis versus infiltrate in the mid to lower lung. Stable cardiomegaly. Stable left central line. No evidence of mediastinal shift or pneumothorax. RAD/Chest Insp/Exp 2 View IMPRESSION: No evidence of mediastinal shift or pneumothorax. Significant reduction of the left pleural effusion with residual mild to moderate left pleural effusion. There is mild to moderate right pleural effusion, increased since prior. Electronically Signed: Sivakumar Peoples MD at 12:08 EST Tel [phone], Service support ,
[2019-02-02] MEDS: Insulin Lispro 100 UNIT/ML INSULN.PEN SC ×2 (12:20→16:00)
[2019-02-02 12:31] LABS: Bedside Glucose 221 mg/dL (70-110)
--- NOTE | 2019-02-02 13:26 | NURSING ---
Colostomy appliance changed. peristomal skin is intact. cleansed with soap and water, pat dry, and applied a new flat 2 piece Destini appliance. pt tolerated well.
--- NOTE | 2019-02-02 15:45 | RAD_ITS ---
STUDY: X-RAY CHEST REASON FOR EXAM: Male, 73 years old. 4 HOURS POST THORA TECHNIQUE: Inspiration and expiration views COMPARISON: 02/02/2019 at 1149. FINDINGS: Stable residual mild to moderate left pleural effusion. There is mild to moderate right pleural effusion, stable since prior. Stable bilateral atelectasis versus infiltrate in the mid to lower lung. Stable cardiomegaly. Stable left central line. No evidence of mediastinal shift or pneumothorax. RAD/Chest Insp/Exp 2 View IMPRESSION: No evidence of mediastinal shift or pneumothorax. Electronically Signed: Sivakumar Peoples MD at 16:17 EST Tel [phone], Service support ,
[2019-02-02 16:16] LABS: Bedside Glucose 174 mg/dL (70-110)
--- NOTE | 2019-02-02 16:21 | PCM.PN.HOSP ---
Patient Problems: Active and Suspected Problems (Last Reviewed 07/27/18 @ 13:58 by Kaleigh Braden PA-C) Solitary kidney (Acute) Acute kidney injury on CKD stage III (Acute) Reason for Visit: Follow-up on URSZULA/Pleural effusion Subjective: Patient seen and examined. He feels improved after thoracocentesis today. Denies fever or chills. Objective: Physical exam: General: Alert, Oriented x3, Cooperative, No apparent distress, Confused, on 1L oxygen HEENT: Atraumatic, PERRLA, EOMI, Normocephalic Oral: Moist Mucosa Neck: Supple, No JVD, Negative Carotid Bruits Lungs: - - Markedly decreased breath sounds in the right upper, mid and lower lung [place]. Cardiovascular: Regular rate, Regular Rhythm, Normal S1, Normal S2, No murmurs Abdomen: - - Abdomen moderately distended, with positive fluid thrill. She had moderate tenderness of the right upper quadrant area in the area of the liver. Extremities: No clubbing, No cyanosis, No edema, Capillary Refill Less than 3 Seconds Skin: No rashes, No breakdown Musculoskeletal: No Tenderness to Palpation of Joints or Extremities Lymphatic: No Cervical, Supraclavicular, or Inguinal Adenopathy Neurological: Cranial nerves II-XII grossly intact Psych/Mental Status: Normal Affect, Appropriate, Alert and oriented to time, place, person, mood and affect Vitals/I&O's: Vital Signs Temp Pulse Resp BP Pulse Ox 99.8 F H 108 H 16 117/59 L 96 02/02/19 16:03 02/02/19 16:03 02/02/19 16:03 02/02/19 16:03 02/02/19 16:03 Oxygen Flow Rate (L/min) [4] 2 Oxygen Flow Rate (L/min) [3] 2 Oxygen Flow Rate (L/min) [2] 2 Oxygen Flow Rate (L/min) [1 ( 2 Initial Baseline)] Oxygen Flow Rate (L/min) 2 Oxygen Delivery Method [4] Nasal Cannula Oxygen Delivery Method [3] Nasal Cannula Oxygen Delivery Method [2] Nasal Cannula Oxygen Delivery Method [1 ( Nasal Cannula Initial Baseline)] Oxygen Delivery Method Room Air Weight: 79.3 kg Body Mass Index (BMI) 25.0 Finger Stick Blood Glucose 160 Intake and Output for Last 24 Hours 01/31/19 02/01/1902/02/19 23:59 23:59 23:59 Intake Total 1040 / 1040 436.67 / 436.67 780 / 780 Output Total 550 / 550 400 / 400 150 / 150 Balance 490 / 490 36.67 / 36.67 630 / 630 Microbiology Past 72 Hours 01/30/19 Unknown Stool Stool Occult Blood (DWAYNE) - Final Occult Blood Positive Laboratory Results 02/01/19 16:30: POC Glucose 131 H 02/01/19 21:52: POC Glucose 156 H 02/02/19 05:40: Sodium 136, Potassium 4.5, Chloride 100, Carbon Dioxide 27.0, BUN 28 H, Creatinine 2.17 H, Estim Creat Clear Calc 30.37, Est GFR (MDRD) Af Amer 38 L, Est GFR (MDRD) Non-Af 32 L, BUN/Creatinine Ratio 12.9, Glucose 127 H, Calcium 7.6 L, Phosphorus 3.6, Albumin 1.5 L 02/02/19 05:40: Lactate Dehydrogenase 152, Total Protein 5.1 L, Globulin 3.6, Albumin/Globulin Ratio 0.4 L 02/02/19 05:40: PT 16.7 H, INR 1.4 02/02/19 06:35: POC Glucose 117 H 02/02/19 12:18: POC Glucose 221 H 02/02/19 16:00: POC Glucose 174 H Current Medications Acetaminophen (Tylenol) 650 mg PO Q6H PRN PRN PRN Reason: Pain Score 1-3/Temp > 100.7 F Last Admin: 01/31/19 00:12 Dose: 650 mg Documented by: Al Hydroxide/Mg Hydroxide (Mylanta Ii) 30 ml PO Q6H PRN PRN PRN Reason: Gastric Burning Albuterol Sulfate (Ventolin Aerosols) 2.5 mg INHALATION Q2H PRN PRN PRN Reason: SOB/Wheezing Last Admin: 02/01/19 19:00 Dose: 2.5 mg Documented by: Ascorbic Acid (Vitamin C) 1,000 mg PO BID [facility] Last Admin: 02/02/19 08:24 Dose: 1,000 mg Documented by: Atorvastatin Calcium (Lipitor) 10 mg PO QHS [facility] Last Admin: 02/01/19 21:53 Dose: 10 mg Documented by: Colesevelam HCl (Welchol) 625 mg PO BID [facility] Last Admin: 02/02/19 08:24 Dose: 625 mg Documented by: Ferrous Sulfate ([facility]ous Sulfate) [facility] Last Admin: 02/02/19 16:00 Dose: Not Given Documented by: Gabapentin (Neurontin) 300 mg PO QHS [facility] Last Admin: 02/01/19 21:53 Dose: 300 mg Documented by: Glucagon () 1 mg IM .X1 PRN PRN Reason: Hypoglycemia Guaifenesin (Robitussin) 20 ml PO Q4H PRN PRN PRN Reason: COUGH Heparin Sodium (Porcine) () 2,500 units IV UD PRN PRN Reason: Dialysis Cath Heparin Flush Sodium Chloride () 250 mls @ 15 mls/hr IV .[id number] PRN PRN Reason: Saline Flush Sodium Chloride () 250 mls @ 15 mls/hr IV .[id number] PRN PRN Reason: Additional IVPB Infusion Dextrose (Dextrose 10%-Water) 250 mls @ 999 mls/hr IV .Q16M PRN; Protocol PRN Reason: HYPOGLYCEMIA Insulin Human Lispro (Humalog Kwikpen (Bkc)) 0 unit SC [facility]; Protocol Last Admin: 02/02/19 16:00 Dose: 2 u Documented by: Levothyroxine Sodium (Synthroid) 25 mcg PO DAILY@0600 [facility] Last Admin: 02/02/19 06:36 Dose: 25 mcg Documented by: Melatonin (Melatonin) 3 mg PO QHS PRN PRN PRN Reason: INSOMNIA Last Admin: 01/31/19 02:30 Dose: 3 mg Documented by: Metoprolol Tartrate (Lopressor (Beta Roxy)) 25 mg PO BID [facility] Last Admin: 01/29/19 09:17 Dose: Not Given Documented by: Morphine Sulfate () 2 mg IV Q3H PRN PRN PRN Reason: Pain Score 6-10/10 Last Admin: 01/31/19 03:58 Dose: 2 mg Documented by: Multivitamins/Minerals (Multivitamin With Minerals) 1 tablet PO DAILY@0800 [facility] Last Admin: 02/02/19 08:24 Dose: 1 tablet Documented by: Nitroglycerin (Nitrostat) 0.4 mg SUBLINGUAL Q5M PRN PRN Reason: CARDIAC/CHEST PAIN Ondansetron HCl (Zofran) 4 mg IV Q8H PRN PRN PRN Reason: NAUSEA/VOMITING Oxycodone HCl (Oxyir) 5 mg PO Q4H PRN PRN PRN Reason: Pain Score 4-5/10 Last Admin: 01/31/19 17:10 Dose: 5 mg Documented by: Pantoprazole Sodium (Protonix) 40 mg PO DAILY [facility] Last Admin: 02/02/19 08:24 Dose: 40 mg Documented by: Polyethylene Glycol (Miralax) 17 gm PO DAILY PRN PRN PRN Reason: Constipation Last Admin: 01/30/19 11:25 Dose: 17 gm Documented by: Senna (Senokot) 2 tablet PO BID PRN PRN PRN Reason: CONSTIPATION Senna/Docusate Sodium (Senokot-S, Itzel-Colace) 2 tablet PO BID PRN PRN PRN Reason: Constipation Last Admin: 01/30/19 10:00 Dose: 2 tablet Documented by: Sodium Chloride () 10 - 40 ml IV UD PRN PRN Reason: SALINE FLUSH Last Admin: 01/30/19 06:49 Dose: 10 ml Documented by: Sodium Chloride () 10 ml IV UD PRN PRN Reason: Dialysis Catheter Flush Sucralfate (Carafate) 1 gm PO 1HR_ACHS [facility] Last Admin: 02/02/19 16:00 Dose: Not Given Documented by: STROKE Vital Signs/Narrative: Vital Signs Temp Pulse Resp BP Pulse Ox 02/02/19 16:03 99.8 F H 108 H 16 117/59 L 96 02/02/19 15:00 106 H Medical Necessity - Tobacco Use Smoking Status: Never smoker Assessment/Plan All Active Problems (Last Reviewed 07/27/18 @ 13:58 by Kaleigh Braden PA-C) Solitary kidney (Acute) Acute kidney injury on CKD stage III (Acute) Blister of left leg without infection (Acute) Hypotension (Acute) Probable sepsis (Acute) Infected pressure ulcer (Acute) Abdominal pain (Acute) Acute kidney injury (Acute) Septic shock (Acute) Pressure ulcer of sacral region, stage 3 (Acute) Scrotal ulcer (Acute) Complicated UTI (urinary tract infection) (Acute) Constipation (Acute) Pressure ulcer of perianal region (Resolved) Pressure ulcer of buttock (Resolved) UTI (urinary tract infection) (Acute) 1. URSZULA with hyperkalemia, patient is oliguric, Cr is 2.17, baseline Cr 0.8 Status post dialysis by temporary catheter, nephrology following Outpatient dialysis planned, labs in a.m. 2. Acute hypoxic respiratory insufficiency due to left sided pleural effusion s/p thoracocentesis CAT scan of the chest shows bilateral pleural effusion, left greater than right, extensive consolidation throughout the left lung associated with collapse of the left lower lung, right lower lobe consolidation, pericardial effusion, subcutaneous edema Patient is on 2 L of oxygen We will continue to monitor and wean off for SPO2 while patient undergoes fluid removal from dialysis Patient's pulmonary status will need to be reassessed after fluids are taken off from dialysis 3. Acute on chronic anemia, Hb stable Will transfuse when hemoglobin is less than 7 4. Constipation, on multiple bowel regimen 5. 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 Type 2 diabetes mellitus, BS is stable, On insulin sliding scale. Will continue to monitor 7. Hypertension, relatively hypotensive, off amlodipine and metoprolol, will continue to monitor 8. Hyperlipidemia, continue on statin. 9. Hypothyroidism, continue on Synthroid 10. DVT prophylaxis -unable to use SCDs or chemoprophylaxis on account of anemia. Code status: Full code Code Visit Inpatient E&M: 82382 Subs Hosp L2
[2019-02-02] MEDS: Atorvastatin Calcium 10 MG Tablet PO (21:38)
[2019-02-02] MEDS: Gabapentin 300 MG Capsule PO (21:38)
--- NOTE | 2019-02-02 22:00 | NURSING ---
Pt placed on 2L oxygen via nasal cannula at this time d/t oxygen saturations in the mid 80s on room air. Pt denies shortness of breath. Will continue to monitor.
[2019-02-03] VITALS (18 sets, daily range): BP systolic 98–140; BP diastolic 49–64; PULSE 69–109; RESP 11–18; TEMP 36.3–36.8; O2SAT 93–99
[2019-02-03] MEDS: Acetaminophen 325 MG Tablet 650 MG PO (00:58)
[2019-02-03 01:16] LABS: Bedside Glucose 125 mg/dL (70-110)
--- NOTE | 2019-02-03 04:57 | PN_ITS ---
Patient Problems: Active and Suspected Problems (Last Reviewed 07/27/18 @ 13:58 by Kaleigh Braden PA-C) Solitary kidney (Acute) Acute kidney injury on CKD stage III (Acute) Subjective: The patient was seen and examined at the bedside this morning. Events from the last 24 hours have been reviewed. The patient is currently afebrile, hemodynamically stable and maintaining appropriate oxygen saturations on 2 L/min via nasal cannula. The patient did undergo successful ultrasound-guided thoracentesis yesterday in radiology. However, despite orders that indicated the pleural fluid was to be sent for analysis, no pleural fluid was sent to the lab from radiology for analysis. The patient is currently documented to be overall net +9.5 L for the hospital admission. Objective: The patient's most recent lab work, culture data and imaging studies have all been personally reviewed. - Physical Exam Vitals/I&O's: Vital Signs Temp Pulse Resp BP Pulse Ox 97.5 F L 92 14 99/49 L 97 02/03/19 03:40 02/03/19 03:40 02/03/19 03:40 02/03/19 03:40 02/03/19 03:40 Oxygen Flow Rate (L/min) [4] 2 Oxygen Flow Rate (L/min) [3] 2 Oxygen Flow Rate (L/min) [2] 2 Oxygen Flow Rate (L/min) [1 ( 2 Initial Baseline)] Oxygen Flow Rate (L/min) 2 Oxygen Delivery Method [4] Nasal Cannula Oxygen Delivery Method [3] Nasal Cannula Oxygen Delivery Method [2] Nasal Cannula Oxygen Delivery Method [1 ( Nasal Cannula Initial Baseline)] Oxygen Delivery Method Nasal Cannula Weight: 174 lb 13.225 oz Body Mass Index (BMI) 25.0 Finger Stick Blood Glucose 160 Intake and Output for Last 24 Hours 02/01/19 02/02/19 02/03/19 23:59 23:59 23:59 Intake Total 436.67 / 436.67 1570 / 1570 Output Total 400 / 400 170 / 170 Balance 36.67 / 36.67 1400 / 1400 General: Alert, No apparent distress HEENT: Atraumatic, PERRLA, Normocephalic Oral: No Gingival or Mucosal Lesions/ Ulcerations Neck: Supple, No Nodes, Trachea Midline Lungs: No rhonchi, No wheeze, No rales, Diminished Cardiovascular: Regular rate, Regular Rhythm, Normal S1, Normal S2 Abdomen: Bowel Sounds Present, Soft, Non Tender, Obese, - - + Ostomy and suprapubic catheter in place Extremities: No clubbing, No cyanosis, - - Left AKA Skin: - - No significant change from previous Musculoskeletal: No Muscle Wasting Lymphatic: No Cervical, Supraclavicular, or Inguinal Adenopathy Neurological: Neuro grossly intact Psych/Mental Status: Normal Affect, Appropriate Labs (Last 48 Hours) 02/01/19 02/01/19 02/01/19 05:28 05:28 05:32 WBC RBC Hgb Hct MCV MCH MCHC RDW Std Deviation RDW Coeff of Raji Plt Count MPV Immature Gran % (Auto) Neut % (Auto) Lymph % (Auto) [place] % (Auto) Eos % (Auto) Baso % (Auto) Absolute Neuts (auto) Absolute Lymphs (auto) Nucleated RBC % PT 16.5 H INR 1.4 APTT 45.5 H Sodium 136 Potassium 3.8 Chloride 101 Carbon Dioxide 26.0 BUN 37 H Creatinine 2.06 H Estim Creat Clear Calc 31.99 Est GFR (MDRD) Af Amer 41 L Est GFR (MDRD) Non-Af 34 L BUN/Creatinine Ratio 18.0 Glucose 116 H Hemoglobin A1c Calcium 7.8 L Phosphorus 3.4 Lactate Dehydrogenase Total Protein Albumin 1.7 L Globulin Albumin/Globulin Ratio TSH 1.46 POC Glucose 117 H 02/01/19 02/01/19 02/01/19 06:05 06:05 06:37 WBC 8.1 RBC 2.74 L Hgb 7.6 L Hct 24.9 L MCV 90.9 MCH 27.7 MCHC 30.5 L RDW Std Deviation 50.9 H RDW Coeff of Raji 15.4 H Plt Count 278 MPV 8.9 Immature Gran % (Auto) 0.900 Neut % (Auto) 66.5 Lymph % (Auto) 10.3 L [place] % (Auto) 9.9 Eos % (Auto) 11.9 H Baso % (Auto) 0.5 Absolute Neuts (auto) 5.4 Absolute Lymphs (auto) 0.83 Nucleated RBC % 0 PT INR APTT Sodium Potassium Chloride Carbon Dioxide BUN Creatinine Estim Creat Clear Calc Est GFR (MDRD) Af Amer Est GFR (MDRD) Non-Af BUN/Creatinine Ratio Glucose Hemoglobin A1c 6.1 Calcium Phosphorus Lactate Dehydrogenase Total Protein Albumin Globulin Albumin/Globulin Ratio TSH POC Glucose 138 H 02/01/19 02/01/19 02/01/19 11:19 12:32 16:01 WBC RBC Hgb Hct MCV MCH MCHC RDW Std Deviation RDW Coeff of Raji Plt Count MPV Immature Gran % (Auto) Neut % (Auto) Lymph % (Auto) [place] % (Auto) Eos % (Auto) Baso % (Auto) Absolute Neuts (auto) Absolute Lymphs (auto) Nucleated RBC % PT INR APTT Sodium Potassium Chloride Carbon Dioxide BUN Creatinine Estim Creat Clear Calc Est GFR (MDRD) Af Amer Est GFR (MDRD) Non-Af BUN/Creatinine Ratio Glucose Hemoglobin A1c Calcium Phosphorus Lactate Dehydrogenase Total Protein Albumin Globulin Albumin/Globulin Ratio [facility] POC Glucose 111 H 100 82 02/01/19 02/01/19 02/02/19 16:30 21:52 05:40 WBC RBC Hgb Hct MCV MCH MCHC RDW Std Deviation RDW Coeff of Raji Plt Count MPV Immature Gran % (Auto) Neut % (Auto) Lymph % (Auto) [place] % (Auto) Eos % (Auto) Baso % (Auto) Absolute Neuts (auto) Absolute Lymphs (auto) Nucleated RBC % PT INR APTT Sodium 136 Potassium 4.5 Chloride 100 Carbon Dioxide 27.0 BUN 28 H Creatinine 2.17 H Estim Creat Clear Calc 30.37 Est GFR (MDRD) Af Amer 38 L Est GFR (MDRD) Non-Af 32 L BUN/Creatinine Ratio 12.9 Glucose 127 H Hemoglobin A1c Calcium 7.6 L Phosphorus 3.6 Lactate Dehydrogenase Total Protein Albumin 1.5 L Globulin Albumin/Globulin Ratio TSH POC Glucose 131 H 156 H 02/02/19 02/02/19 02/02/19 05:40 05:40 06:35 WBC RBC Hgb Hct MCV MCH MCHC RDW Std Deviation RDW Coeff of Raji Plt Count MPV Immature Gran % (Auto) Neut % (Auto) Lymph % (Auto) [place] % (Auto) Eos % (Auto) Baso % (Auto) Absolute Neuts (auto) Absolute Lymphs (auto) Nucleated RBC % PT 16.7 H INR 1.4 APTT Sodium Potassium Chloride Carbon Dioxide BUN Creatinine Estim Creat Clear Calc Est GFR (MDRD) Af Amer Est GFR (MDRD) Non-Af BUN/Creatinine Ratio Glucose Hemoglobin A1c Calcium Phosphorus Lactate Dehydrogenase 152 Total Protein 5.1 L Albumin Globulin 3.6 Albumin/Globulin Ratio 0.4 L TSH POC Glucose 117 H 02/02/19 02/02/19 02/02/19 12:18 16:00 21:35 WBC RBC Hgb Hct MCV MCH MCHC RDW Std Deviation RDW Coeff of Raji Plt Count MPV Immature Gran % (Auto) Neut % (Auto) Lymph % (Auto) [place] % (Auto) Eos % (Auto) Baso % (Auto) Absolute Neuts (auto) Absolute Lymphs (auto) Nucleated RBC % PT INR APTT Sodium Potassium Chloride Carbon Dioxide BUN Creatinine Estim Creat Clear Calc Est GFR (MDRD) Af Amer Est GFR (MDRD) Non-Af BUN/Creatinine Ratio Glucose Hemoglobin A1c Calcium Phosphorus Lactate Dehydrogenase Total Protein Albumin Globulin Albumin/Globulin Ratio TSH POC Glucose 221 H 174 H 125 H Clinical Impression(s) from Imaging Studies Renal Ultrasound 01/28/19 08:11 IMPRESSION: 1. No hydronephrosis. 2. Severe left renal cortical atrophy. 3. Bilateral simple renal cysts. Electronically Signed: Truman Perez MD ([place]) at 16:54 EST , Service support , Abdomen X-Ray 01/29/19 13:56 IMPRESSION: Moderate general increase in colonic bowel gas and moderate stool without other acute abdominal or pelvic findings. Electronically Signed: Ximena Jain MD at 17:29 EST , Service support , Chest X-Ray 01/30/19 01:55 IMPRESSION: Left-sided pleural effusion with possible left lower lobe collapse. If indicated, follow-up with bronchoscopy or CT chest may further characterize these findings. Asymmetric congestive heart failure versus right perihilar pneumonia. Electronically Signed: Deja Ford MD at 2:18 EST , Service support , Abdomen X-Ray 01/30/19 08:40 IMPRESSION: Prominent air within the colonic markings without definitive air fluid levels to suggest underlying ileus versus obstruction, clinically correlate. Electronically Signed: Saw Verdugo DO at 10:31 EST , Service support , Chest X-Ray 01/30/19 14:25 Chest X-Ray 01/31/19 04:50 IMPRESSION: Stable near complete opacification of the left hemithorax consistent with an underlying effusion and associated consolidation. Right pleural effusion. Electronically Signed: Mimi Romero MD at 10:13 EST Tel , Service support , Chest CT 01/31/19 07:16 IMPRESSION: Bilateral pleural effusions, left greater than right. Extensive consolidation throughout the left lung associated with collapse of the left lower lobe. Right lower lobe consolidation. Pericardial effusion. Subcutaneous edema. Electronically Signed: Mimi Romero MD at 9:14 EST Tel , Service support , Chest X-Ray 02/01/19 14:57 IMPRESSION: Satisfactory position of the left-sided dual-lumen catheter. Electronically Signed: Andre Renee, at 16:10 EST Tel , Service support , Chest X-Ray 02/02/19 11:55 IMPRESSION: No evidence of mediastinal shift or pneumothorax. Significant reduction of the left pleural effusion with residual mild to moderate left pleural effusion. There is mild to moderate right pleural effusion, increased since prior. Electronically Signed: Sivakumar Peoples MD at 12:08 EST Tel [phone], Service support , Chest X-Ray 02/02/19 15:45 IMPRESSION: No evidence of mediastinal shift or pneumothorax. Electronically Signed: Sivakumar Peoples MD at 16:17 EST Tel [phone], Service support , Current Medications Acetaminophen (Tylenol) 650 mg PO Q6H PRN PRN PRN Reason: Pain Score 1-3/Temp > 100.7 F Last Admin: 02/03/19 00:58 Dose: 650 mg Documented by: Al Hydroxide/Mg Hydroxide (Mylanta Ii) 30 ml PO Q6H PRN PRN PRN Reason: Gastric Burning Albuterol Sulfate (Ventolin Aerosols) 2.5 mg INHALATION Q2H PRN PRN PRN Reason: SOB/Wheezing Last Admin: 02/01/19 19:00 Dose: 2.5 mg Documented by: Ascorbic Acid (Vitamin C) 1,000 mg PO BID [facility] Last Admin: 02/02/19 08:24 Dose: 1,000 mg Documented by: Atorvastatin Calcium (Lipitor) 10 mg PO QHS [facility] Last Admin: 02/02/19 21:38 Dose: 10 mg Documented by: Colesevelam HCl (Welchol) 625 mg PO BID [facility] Last Admin: 02/02/19 21:38 Dose: 625 mg Documented by: [facility]ous [facility]) [facility] Last Admin: 02/02/19 16:00 Dose: Not Given Documented by: Gabapentin (Neurontin) 300 mg PO QHS [facility] Last Admin: 02/02/19 21:38 Dose: 300 mg Documented by: Glucagon () 1 mg IM .X1 PRN PRN Reason: Hypoglycemia Guaifenesin (Robitussin) 20 ml PO Q4H PRN PRN PRN Reason: COUGH Heparin Sodium (Porcine) () 2,500 units IV UD PRN PRN Reason: Dialysis Cath Heparin Flush Sodium Chloride () 250 mls @ 15 mls/hr IV .[id number] PRN PRN Reason: Saline Flush Sodium Chloride () 250 mls @ 15 mls/hr IV .[id number] PRN PRN Reason: Additional IVPB Infusion Dextrose (Dextrose 10%-Water) 250 mls @ 999 mls/hr IV .Q16M PRN; Protocol PRN Reason: HYPOGLYCEMIA Insulin Human Lispro (Humalog Kwikpen (Bkc)) 0 unit SC [facility]; Protocol Last Admin: 02/02/19 21:37 Dose: Not Given Documented by: Levothyroxine Sodium (Synthroid) 25 mcg PO DAILY@0600 [facility] Last Admin: 02/02/19 06:36 Dose: 25 mcg Documented by: Melatonin (Melatonin) 3 mg PO QHS PRN PRN PRN Reason: INSOMNIA Last Admin: 01/31/19 02:30 Dose: 3 mg Documented by: Metoprolol Tartrate (Lopressor (Beta Roxy)) 25 mg PO BID [facility] Last Admin: 01/29/19 09:17 Dose: Not Given Documented by: Morphine Sulfate () 2 mg IV Q3H PRN PRN PRN Reason: Pain Score 6-10/10 Last Admin: 01/31/19 03:58 Dose: 2 mg Documented by: Multivitamins/Minerals (Multivitamin With Minerals) 1 tablet PO DAILY@0800 [facility] Last Admin: 02/02/19 08:24 Dose: 1 tablet Documented by: Nitroglycerin (Nitrostat) 0.4 mg SUBLINGUAL Q5M PRN PRN Reason: CARDIAC/CHEST PAIN Ondansetron HCl (Zofran) 4 mg IV Q8H PRN PRN PRN Reason: NAUSEA/VOMITING Oxycodone HCl (Oxyir) 5 mg PO Q4H PRN PRN PRN Reason: Pain Score 4-5/10 Last Admin: 01/31/19 17:10 Dose: 5 mg Documented by: Pantoprazole Sodium (Protonix) 40 mg PO DAILY [facility] Last Admin: 02/02/19 08:24 Dose: 40 mg Documented by: Polyethylene Glycol (Miralax) 17 gm PO DAILY PRN PRN PRN Reason: Constipation Last Admin: 01/30/19 11:25 Dose: 17 gm Documented by: Senna (Senokot) 2 tablet PO BID PRN PRN PRN Reason: CONSTIPATION Senna/Docusate Sodium (Senokot-S, Itzel-Colace) 2 tablet PO BID PRN PRN PRN Reason: Constipation Last Admin: 01/30/19 10:00 Dose: 2 tablet Documented by: Sodium Chloride () 10 - 40 ml IV UD PRN PRN Reason: SALINE FLUSH Last Admin: 01/30/19 06:49 Dose: 10 ml Documented by: Sodium Chloride () 10 ml IV UD PRN PRN Reason: Dialysis Catheter Flush Sucralfate (Carafate) 1 gm PO 1HR_ACHS [facility] Last Admin: 02/02/19 21:38 Dose: 1 gm Documented by: Medical Necessity - Tobacco Use Smoking Status: Never smoker Assessment/Plan All Active Problems (Last Reviewed 07/27/18 @ 13:58 by Kaleigh Braden PA-C) Solitary kidney (Acute) Acute kidney injury on CKD stage III (Acute) Blister of left leg without infection (Acute) Hypotension (Acute) Probable sepsis (Acute) Infected pressure ulcer (Acute) Abdominal pain (Acute) Acute kidney injury (Acute) Septic shock (Acute) Pressure ulcer of sacral region, stage 3 (Acute) Scrotal ulcer (Acute) Complicated UTI (urinary tract infection) (Acute) Constipation (Acute) Pressure ulcer of perianal region (Resolved) Pressure ulcer of buttock (Resolved) UTI (urinary tract infection) (Acute) RECOMMENDATIONS: 1. Ongoing volume optimization with dialysis per nephrology recommendations. 2. Wean supplemental oxygen to maintain saturations at or above 90%. 3. Encourage incentive spirometer use. 4. [facility] [place] IMPRESSIONS: 1. Acute hypoxemic respiratory insufficiency/shortness of breath The patient's plain film chest x-ray revealed findings of near complete o pacification of the left hemithorax. A follow-up chest CT completed on January 31 revealed significant bilateral pleural effusions, left greater than right with associated compressive atelectasis. The patient is in need of further volume optimization with hemodialysis per nephrology recommendations. Wean supplemental oxygen as tolerated to maintain saturations at or above 90%. Encourage incentive spirometer use. The patient did undergo ultrasound-guided thoracentesis of the left pleural effusion on February 02. However, radiology did not forward the pleural fluid to the lab for analysis. 2. Acute kidney injury Nephrology is currently following to assist with medical management. The patient's renal function has not recovered despite volume resuscitation. In fact, the patient is now volume overloaded and in need of optimization. Continue hemodialysis support per nephrology recommendations. 3. Anemia of chronic disease Continue to monitor H&H daily with plans to transfuse if hemoglobin drops below 7 g/dL. 4. History of osteomyelitis/chronic decubitus ulcers/diabetes mellitus/hypertension/hyperlipidemia/hypothyroidism Complicates care, management, recovery and prognosis. Continue home medications as indicated. This note was generated with [employer] software. It may contain incorrect words, spelling, and punctuation that were not noted in checking the note before signing. Code Visit Inpatient E&M: 60620 Subs Hosp L2
[2019-02-03] MEDS: Levothyroxine 25 MCG TABLET PO (05:51)
[2019-02-03] MEDS: Sucralfate 1 GM Tablet PO ×4 (05:55→21:19)
[2019-02-03 06:43] LABS: Absolute Lymphocyte Count 1.01 X10^3/uL (0.83-4.51); Absolute Neutrophil Count 7.2 X10^3/uL (2.0-7.7); Basophil# 0.02 X10^3/uL; Basophil% 0.2 % (0-1); Eosinophil# 0.55 X10^3/uL; Eosinophils% 5.8 % (0-5); Hematocrit 22.5 % (40-54); Hemoglobin 6.6 g/dL (13.0-16.5); Lymphocyte # 1.01 X10^3/ul (4.0); Lymphocyte % 10.6 % (19-41); Mean Corp Hgb Conc 29.3 g/dL (32-36); Mean Corpuscular Hgb 27.7 pg (27.0-32.0); Mean Corpuscular Volume 94.5 fL (80-94); Mean Platelet Vol. 9.2 fl (6.2-12.0); Monocyte# 0.73 X10^3/uL; Monocyte% 7.7 % (0-10); NRBC Flagged by Analyzer 0 % (0-5); Neutrophil # 7.15 X10^3/uL (2.7-7.7); Platelet Count 237 K/mm3 (150-450); RBC Distribution Width CV 15.5 % (11.6-14.6); RBC Distribution Width SD 53.6 fl (35.1-43.9); Red Blood Count 2.38 M/mm3 (4.6-6.2); White Blood Count 9.5 K/mm3 (4.4-11.0)
[2019-02-03 06:56] LABS: Bedside Glucose 121 mg/dL (70-110)
[2019-02-03 07:04] LABS: Albumin, Serum 1.4 g/dL (3.2-5.0); BUN 32 mg/dL (7-18); BUN/Creat Ratio 11.3 RATIO (10-20); Calcium,Total 7.6 mg/dL (8.5-10.1); Chloride 99 mmol/L (98-107); Creatinine, Serum 2.82 mg/dL (0.70-1.30); EST Glomerular Filtration Rate 23 mL/min (>60); Est Glom Filt Rate - Afr Amer 28 mL/min (>60); Estimated Creatinine Clearance 23.37 ml/min; Glucose 118 mg/dL (74-106); Phosphorus 3.4 mg/dL (2.5-4.9); Sodium Level 133 mmol/L (136-145)
[2019-02-03] MEDS: Ferrous Sulfate 325 MG Tablet PO ×2 (08:59→16:28)
[2019-02-03] MEDS: Multivitamins,Ther W-Minerals Tablet 1 TABLET PO (08:59)
[2019-02-03] MEDS: Pantoprazole Sodium 40 MG Tablet PO (10:28)
[2019-02-03] MEDS: Ascorbic Acid 500 MG Tablet 1000 MG PO ×2 (10:28→21:19)
[2019-02-03 11:50] LABS: Bedside Glucose 164 mg/dL (70-110)
[2019-02-03] MEDS: Insulin Lispro 100 UNIT/ML INSULN.PEN SC (12:49)
--- NOTE | 2019-02-03 13:53 | PCM.PROGNOTE ---
Subjective: The pt is a 73 YO Male admitted to the hospital with ARF. He has a solitary kidney. He is being followed by nephrology. Hydration did not reverse the ARF and he had a temporary dialysis catheter placed by Dr. Alarcon on 02/01/19 and was started on HD. He also had acute hypoxic respiratory insufficiency secondary to bilateral pleural effusions, left greater than right. He underwent thoracentesis on 02/02/19 T-max over the preceding 24 hours was 99.8. Current temp is 98.3. Vital signs are stable. Telemetry shows normal sinus rhythm with no ectopy He is maintaining an oxygen saturation of 93% on his 2 L nasal cannula. All lab was personally reviewed. The white blood cell count today is 9.5 with 75% neutrophils. Eosinophils are 15.8, down from 12.9 on 01/31/2019. Hemoglobin is 6.6, down from 7.6 at admission. Stool is Hemoccult positive. Sodium is down at 133 today. BUN is 32 with a creatinine of 2.82, up from 2.17 on 02/02/2019. Calcium corrected for hypoalbuminemia is within normal limits. Phosphorus is normal at 3.4. Hemoglobin A1c was 6.1. Hepatitis B surface antigen and surface antibody are nonreactive. Blood sugar record was reviewed. There is a rare blood sugar greater than 200. No hypoglycemia. Medication list was reviewed. He is c/o being very fatigued today. Denies nausea, CP, abd pain. - Physical Exam Vitals/I&O's: Vital Signs Temp Pulse Resp BP Pulse Ox 98.3 F 90 16 117/57 L 93 02/03/19 12:51 02/03/19 13:00 02/03/19 12:51 02/03/19 12:51 02/03/19 12:51 Oxygen Flow Rate (L/min) [4] 2 Oxygen Flow Rate (L/min) [3] 2 Oxygen Flow Rate (L/min) [2] 2 Oxygen Flow Rate (L/min) [1 ( 2 Initial Baseline)] Oxygen Flow Rate (L/min) 2 Oxygen Delivery Method [4] Nasal Cannula Oxygen Delivery Method [3] Nasal Cannula Oxygen Delivery Method [2] Nasal Cannula Oxygen Delivery Method [1 ( Nasal Cannula Initial Baseline)] Oxygen Delivery Method Nasal Cannula Weight: 174 lb 13.225 oz Body Mass Index (BMI) 25.0 Finger Stick Blood Glucose 160 Intake and Output for Last 24 Hours 02/01/19 02/02/19 02/03/19 23:59 23:59 23:59 Intake Total 436.67 / 436.67 1570 / 1570 710 / 710 Output Total 400 / 400 170 / 170 350 / 350 Balance 36.67 / 36.67 1400 / 1400 360 / 360 General: Alert, Oriented x3, Cooperative, No apparent distress, - - lying in bed. HEENT: PERRLA, EOMI, Normocephalic Oral: Moist Mucosa, No Gingival or Mucosal Lesions/ Ulcerations Neck: Supple, No Nodes, Trachea Midline Lungs: No rhonchi, No wheeze, No rales, Diminished, - - Not tachypneic, no conversational dyspnea, no accessory muscle use Cardiovascular: Regular rate, Regular Rhythm, Normal S1, Normal S2, No rub noted, No Gallop Abdomen: Bowel Sounds Present, Non Tender, Distended, - - No guarding with palpation. Urostomy and colostomy present. Extremities: No clubbing, No cyanosis, - - Has had previous left AKA Skin: - - he has itzel-stomal wounds on the abd and multiple decubitus ulces on the buttocks and over the ischial areas with a lot of scarring and deformity. Please see the photos taken by tucker Adorno Neurological: Cranial nerves II-XII grossly intact, Neuro grossly intact Psych/Mental Status: Appropriate, Flat Affect Laboratory Results 02/02/19 16:00: POC Glucose 174 H 02/02/19 21:35: POC Glucose 125 H 02/03/19 06:23: WBC 9.5, RBC 2.38 L, Hgb 6.6 L, Hct 22.5 L, MCV 94.5 H, MCH 27.7, MCHC 29.3 L, RDW Std Deviation 53.6 H, RDW Coeff of Raji 15.5 H, Plt Count 237, MPV 9.2, Immature Gran % (Auto) 0.700, Neut % (Auto) 75.0 H, Lymph % (Auto) 10.6 L, Weld % (Auto) 7.7, Eos % (Auto) 5.8 H, Baso % (Auto) 0.2, Absolute Neuts (auto) 7.2, Absolute Lymphs (auto) 1.01, Nucleated RBC % 0 02/03/19 06:23: Sodium 133 L, Potassium 4.0, Chloride 99, Carbon Dioxide 26.0, BUN 32 H, Creatinine 2.82 H, Estim Creat Clear Calc 23.37, Est GFR (MDRD) Af Amer 28 L, Est GFR (MDRD) Non-Af 23 L, BUN/Creatinine Ratio 11.3, Glucose 118 H, Calcium 7.6 L, Phosphorus 3.4, Albumin 1.4 L 02/03/19 06:47: POC Glucose 121 H 02/03/19 11:47: POC Glucose 164 H Current Medications Acetaminophen (Tylenol) 650 mg PO Q6H PRN PRN PRN Reason: Pain Score 1-3/Temp > 100.7 F Last Admin: 02/03/19 00:58 Dose: 650 mg Documented by: Al Hydroxide/Mg Hydroxide (Mylanta Ii) 30 ml PO Q6H PRN PRN PRN Reason: Gastric Burning Albuterol Sulfate (Ventolin Aerosols) 2.5 mg INHALATION Q2H PRN PRN PRN Reason: SOB/Wheezing Last Admin: 02/01/19 19:00 Dose: 2.5 mg Documented by: Ascorbic Acid (Vitamin C) 1,000 mg PO BID [facility] Last Admin: 02/03/19 10:28 Dose: 1,000 mg Documented by: Atorvastatin Calcium (Lipitor) 10 mg PO QHS [facility] Last Admin: 02/02/19 21:38 Dose: 10 mg Documented by: Colesevelam HCl (Welchol) 625 mg PO BID [facility] Last Admin: 02/03/19 10:27 Dose: 625 mg Documented by: [facility]) [facility] Last Admin: 02/03/19 08:59 Dose: 325 mg Documented by: Gabapentin (Neurontin) 300 mg PO QHS [facility] Last Admin: 02/02/19 21:38 Dose: 300 mg Documented by: Glucagon () 1 mg IM .X1 PRN PRN Reason: Hypoglycemia Guaifenesin (Robitussin) 20 ml PO Q4H PRN PRN PRN Reason: COUGH Heparin Sodium (Porcine) () 2,500 units IV UD PRN PRN Reason: Dialysis Cath Heparin Flush Sodium Chloride () 250 mls @ 15 mls/hr IV .[id number] PRN PRN Reason: Saline Flush Sodium Chloride () 250 mls @ 15 mls/hr IV .[id number] PRN PRN Reason: Additional IVPB Infusion Dextrose (Dextrose 10%-Water) 250 mls @ 999 mls/hr IV .Q16M PRN; Protocol PRN Reason: HYPOGLYCEMIA Insulin Human Lispro (Humalog Kwikpen (Bkc)) 0 unit SC ACHS [facility]; Protocol Last Admin: 02/03/19 12:49 Dose: 2 u Documented by: Levothyroxine Sodium (Synthroid) 25 mcg PO DAILY@0600 [facility] Last Admin: 02/03/19 05:51 Dose: 25 mcg Documented by: Melatonin (Melatonin) 3 mg PO QHS PRN PRN PRN Reason: INSOMNIA Last Admin: 01/31/19 02:30 Dose: 3 mg Documented by: Metoprolol Tartrate (Lopressor (Beta Roxy)) 25 mg PO BID [facility] Last Admin: 01/29/19 09:17 Dose: Not Given Documented by: Morphine Sulfate () 2 mg IV Q3H PRN PRN PRN Reason: Pain Score 6-10/10 Last Admin: 01/31/19 03:58 Dose: 2 mg Documented by: Multivitamins/Minerals (Multivitamin With Minerals) 1 tablet PO DAILY@0800 [facility] Last Admin: 02/03/19 08:59 Dose: 1 tablet Documented by: Nitroglycerin (Nitrostat) 0.4 mg SUBLINGUAL Q5M PRN PRN Reason: CARDIAC/CHEST PAIN Ondansetron HCl (Zofran) 4 mg IV Q8H PRN PRN PRN Reason: NAUSEA/VOMITING Oxycodone HCl (Oxyir) 5 mg PO Q4H PRN PRN PRN Reason: Pain Score 4-5/10 Last Admin: 01/31/19 17:10 Dose: 5 mg Documented by: Pantoprazole Sodium (Protonix) 40 mg PO DAILY [facility] Last Admin: 02/03/19 10:28 Dose: 40 mg Documented by: Polyethylene Glycol (Miralax) 17 gm PO DAILY PRN PRN PRN Reason: Constipation Last Admin: 01/30/19 11:25 Dose: 17 gm Documented by: Senna (Senokot) 2 tablet PO BID PRN PRN PRN Reason: CONSTIPATION Senna/Docusate Sodium (Senokot-S, Itzel-Colace) 2 tablet PO BID PRN PRN PRN Reason: Constipation Last Admin: 01/30/19 10:00 Dose: 2 tablet Documented by: Sodium Chloride () 10 - 40 ml IV UD PRN PRN Reason: SALINE FLUSH Last Admin: 01/30/19 06:49 Dose: 10 ml Documented by: Sodium Chloride () 10 ml IV UD PRN PRN Reason: Dialysis Catheter Flush Sucralfate (Carafate) 1 gm PO 1HR_ACHS [facility] Last Admin: 02/03/19 10:29 Dose: 1 gm Documented by: Medical Necessity - Tobacco Use Smoking Status: Never smoker Assessment/Plan All Active Problems (Last Reviewed 07/27/18 @ 13:58 by Kaleigh Braden PA-C) Solitary kidney (Acute) Acute kidney injury on CKD stage III (Acute) Blister of left leg without infection (Acute) Hypotension (Acute) Probable sepsis (Acute) Infected pressure ulcer (Acute) Abdominal pain (Acute) Acute kidney injury (Acute) Septic shock (Acute) Pressure ulcer of sacral region, stage 3 (Acute) Scrotal ulcer (Acute) Complicated UTI (urinary tract infection) (Acute) Constipation (Acute) Pressure ulcer of perianal region (Resolved) Pressure ulcer of buttock (Resolved) UTI (urinary tract infection) (Acute) Impressions 1. ARF on CRF - on HD 2. Acute hypoxic respiratory insufficiency due to left-sided pleural effusion-status post thoracentesis and possible oppressive atelectasis versus pneumonia. Continue oxygen supplementation 3. Acute on chronic anemia-hemoglobin stable, will continue to monitor 4. Constipation-continue bowel regimen 5. Diabetes mellitus type 2-continue Accu-Cheks and sliding scale insulin coverage 6. Hypertension-antihypertensives on hold due to low blood pressures-continue to monitor 7. Hyperlipidemia-continue statin Code Visit Inpatient E&M: 57429 Subs Hosp L2
[2019-02-03 16:36] LABS: Bedside Glucose 143 mg/dL (70-110)
[2019-02-03] MEDS: Gabapentin 300 MG Capsule PO (21:19)
[2019-02-03] MEDS: Atorvastatin Calcium 10 MG Tablet PO (21:19)
[2019-02-03] MEDS: 0.9% Saline Lock 10 ML Syringe IV (21:49)
[2019-02-03 21:56] LABS: Bedside Glucose 206 mg/dL (70-110)
[2019-02-04] VITALS (14 sets, daily range): BP systolic 90–125; BP diastolic 38–56; PULSE 93–104; RESP 16–20; TEMP 36.4–37; O2SAT 93–97
[2019-02-04] MEDS: Mag Hydrox/Al Hydrox/Simeth 30 ML UDC PO (03:24)
[2019-02-04] MEDS: Ondansetron 4 MG/2 ML Vial IV ×2 (04:46→21:59)
[2019-02-04] MEDS: 0.9% Saline Lock 10 ML Syringe IV ×2 (04:46→21:59)
[2019-02-04 05:23] LABS: Hematocrit 25.1 % (40-54); Hemoglobin 7.8 g/dL (13.0-16.5); Mean Corp Hgb Conc 31.1 g/dL (32-36); Mean Corpuscular Hgb 28.3 pg (27.0-32.0); Mean Corpuscular Volume 90.9 fL (80-94); Mean Platelet Vol. 8.9 fl (6.2-12.0); Platelet Count 248 K/mm3 (150-450); RBC Distribution Width CV 15.5 % (11.6-14.6); RBC Distribution Width SD 51.1 fl (35.1-43.9); Red Blood Count 2.76 M/mm3 (4.6-6.2); White Blood Count 11.8 K/mm3 (4.4-11.0)
[2019-02-04 05:48] LABS: Anion Gap 8 (5-15); BUN 38 mg/dL (7-18); BUN/Creat Ratio 11.3 RATIO (10-20); Calcium,Total 7.6 mg/dL (8.5-10.1); Chloride 97 mmol/L (98-107); Creatinine, Serum 3.35 mg/dL (0.70-1.30); EST Glomerular Filtration Rate 19 mL/min (>60); Est Glom Filt Rate - Afr Amer 23 mL/min (>60); Estimated Creatinine Clearance 19.67 ml/min; Glucose 139 mg/dL (74-106); Phosphorus 4.2 mg/dL (2.5-4.9); Potassium 4.5 mmol/L (3.5-5.1); Sodium Level 132 mmol/L (136-145)
[2019-02-04] MEDS: Levothyroxine 25 MCG TABLET PO (06:34)
[2019-02-04] MEDS: Sucralfate 1 GM Tablet PO ×4 (06:35→21:57)
[2019-02-04 06:50] LABS: Bedside Glucose 120 mg/dL (70-110)
--- NOTE | 2019-02-04 09:50 | PN_ITS ---
Patient Problems: Active and Suspected Problems (Last Reviewed 07/27/18 @ 13:58 by Kaleigh Braden PA-C) Solitary kidney (Acute) Acute kidney injury on CKD stage III (Acute) Subjective: Patient did okay overnight. Patient was reporting worsening respiratory status this morning, but is currently on hemodialysis. Patient is still requiring minimal supplemental oxygen to maintain saturations. Patient reportedly is tolerating dialysis and there is some plans for volume removal. - Physical Exam Vitals/I&O's: Vital Signs Temp Pulse Resp BP Pulse Ox 37.0 C 96 18 90/38 L 96 02/04/19 09:18 02/04/19 09:18 02/04/19 09:18 02/04/19 09:18 02/04/19 09:18 Oxygen Flow Rate (L/min) [4] 2 Oxygen Flow Rate (L/min) [3] 2 Oxygen Flow Rate (L/min) [2] 2 Oxygen Flow Rate (L/min) [1 ( 2 Initial Baseline)] Oxygen Flow Rate (L/min) 2 Oxygen Delivery Method [4] Nasal Cannula Oxygen Delivery Method [3] Nasal Cannula Oxygen Delivery Method [2] Nasal Cannula Oxygen Delivery Method [1 ( Nasal Cannula Initial Baseline)] Oxygen Delivery Method Nasal Cannula Weight: 79.3 kg Body Mass Index (BMI) 25.0 Finger Stick Blood Glucose 160 Intake and Output for Last 24 Hours 02/02/19 02/03/19 02/04/19 23:59 23:59 23:59 Intake Total 1570 / 1570 950 / 1190 360 / 360 Output Total 170 / 170 450 / 450 50 / 50 Balance 1400 / 1400 500 / 740 310 / 310 General: Alert, Oriented x3, Cooperative, - - Mild distress. No conversational dyspnea. HEENT: Atraumatic, PERRLA, EOMI, Normocephalic, - - Pale conjunctive a. Oral: Moist Mucosa, No Gingival or Mucosal Lesions/ Ulcerations Neck: Supple, No JVD, No Nodes, Trachea Midline Lungs: No rhonchi, No wheeze, No rales, Diminished, - - Symmetric expansion. Cardiovascular: Regular rate, Regular Rhythm, Normal S1, Normal S2, - - Difficult to assess murmurs, rubs and gallops on hemodialysis Abdomen: Bowel Sounds Present, Soft, Non Tender, - - Ostomy and suprapubic catheter noted Extremities: No clubbing, No cyanosis, Edema, - - Left AKA Skin: No rashes, No breakdown Musculoskeletal: No Tenderness to Palpation of Joints or Extremities Lymphatic: No Cervical, Supraclavicular, or Inguinal Adenopathy Neurological: Cranial nerves II-XII grossly intact, Neuro grossly intact, Motor Exam 5/5 strength throughout Psych/Mental Status: Anxious, Flat Affect Laboratory Results 02/03/19 11:47: POC Glucose 164 H 02/03/19 16:26: POC Glucose 143 H 02/03/19 16:50: Blood Type A POSITIVE, Antibody Screen NEGATIVE, Crossmatch See Detail 02/03/19 21:15: POC Glucose 206 H 02/04/19 05:00: WBC 11.8 H, RBC 2.76 L, Hgb 7.8 L, Hct 25.1 L, MCV 90.9, MCH 28.3, MCHC 31.1 L, RDW Std Deviation 51.1 H, RDW Coeff of Raji 15.5 H, Plt Count 248, MPV 8.9 02/04/19 05:00: Sodium 132 L, Potassium 4.5, Chloride 97 L, Carbon Dioxide 27.0, Anion Gap 8, BUN 38 H, Creatinine 3.35 H, Estim Creat Clear Calc 19.67, Est GFR (MDRD) Af Amer 23 L, Est GFR (MDRD) Non-Af 19 L, BUN/Creatinine Ratio 11.3, Glucose 139 H, Calcium 7.6 L, Phosphorus 4.2 02/04/19 06:37: POC Glucose 120 H Current Medications Acetaminophen (Tylenol) 650 mg PO Q6H PRN PRN PRN Reason: Pain Score 1-3/Temp > 100.7 F Last Admin: 02/03/19 00:58 Dose: 650 mg Documented by: Al Hydroxide/Mg Hydroxide (Mylanta Ii) 30 ml PO Q6H PRN PRN PRN Reason: Gastric Burning Last Admin: 02/04/19 03:24 Dose: 30 ml Documented by: Albuterol Sulfate (Ventolin Aerosols) 2.5 mg INHALATION Q2H PRN PRN PRN Reason: SOB/Wheezing Last Admin: 02/01/19 19:00 Dose: 2.5 mg Documented by: Ascorbic Acid (Vitamin C) 1,000 mg PO BID [facility] Last Admin: 02/03/19 21:19 Dose: 1,000 mg Documented by: Atorvastatin Calcium (Lipitor) 10 mg PO QHS [facility] Last Admin: 02/03/19 21:19 Dose: 10 mg Documented by: Colesevelam HCl (Welchol) 625 mg PO BID [facility] Last Admin: 02/03/19 21:19 Dose: 625 mg Documented by: [facility] Last Admin: 02/03/19 16:28 Dose: 325 mg Documented by: Gabapentin (Neurontin) 300 mg PO QHS [facility] Last Admin: 02/03/19 21:19 Dose: 300 mg Documented by: Glucagon () 1 mg IM .X1 PRN PRN Reason: Hypoglycemia Guaifenesin (Robitussin) 20 ml PO Q4H PRN PRN PRN Reason: COUGH Heparin Sodium (Porcine) () 2,500 units IV UD PRN PRN Reason: Dialysis Cath Heparin Flush Sodium Chloride () 250 mls @ 15 mls/hr IV .[id number] PRN PRN Reason: Saline Flush Sodium Chloride () 250 mls @ 15 mls/hr IV .[id number] PRN PRN Reason: Additional IVPB Infusion Dextrose (Dextrose 10%-Water) 250 mls @ 999 mls/hr IV .Q16M PRN; Protocol PRN Reason: HYPOGLYCEMIA Insulin Human Lispro (Humalog Reidpen (Bkc)) 0 unit SC [facility]; Protocol Last Admin: 02/04/19 06:38 Dose: Not Given Documented by: Levothyroxine Sodium (Synthroid) 25 mcg PO DAILY@0600 [facility] Last Admin: 02/04/19 06:34 Dose: 25 mcg Documented by: Melatonin (Melatonin) 3 mg PO QHS PRN PRN PRN Reason: INSOMNIA Last Admin: 01/31/19 02:30 Dose: 3 mg Documented by: Metoprolol Tartrate (Lopressor (Beta Roxy)) 25 mg PO BID [facility] Last Admin: 01/29/19 09:17 Dose: Not Given Documented by: Morphine Sulfate () 2 mg IV Q3H PRN PRN PRN Reason: Pain Score 6-10/10 Last Admin: 01/31/19 03:58 Dose: 2 mg Documented by: Multivitamins/Minerals (Multivitamin With Minerals) 1 tablet PO DAILY@0800 [facility] Last Admin: 02/03/19 08:59 Dose: 1 tablet Documented by: Nitroglycerin (Nitrostat) 0.4 mg SUBLINGUAL Q5M PRN PRN Reason: CARDIAC/CHEST PAIN Ondansetron HCl (Zofran) 4 mg IV Q8H PRN PRN PRN Reason: NAUSEA/VOMITING Last Admin: 02/04/19 04:46 Dose: 4 mg Documented by: Oxycodone HCl (Oxyir) 5 mg PO Q4H PRN PRN PRN Reason: Pain Score 4-5/10 Last Admin: 01/31/19 17:10 Dose: 5 mg Documented by: Pantoprazole Sodium (Protonix) 40 mg PO DAILY [facility] Last Admin: 02/03/19 10:28 Dose: 40 mg Documented by: Polyethylene Glycol (Miralax) 17 gm PO DAILY PRN PRN PRN Reason: Constipation Last Admin: 01/30/19 11:25 Dose: 17 gm Documented by: Senna (Senokot) 2 tablet PO BID PRN PRN PRN Reason: CONSTIPATION Senna/Docusate Sodium (Senokot-S, Itzel-Colace) 2 tablet PO BID PRN PRN PRN Reason: Constipation Last Admin: 01/30/19 10:00 Dose: 2 tablet Documented by: Sodium Chloride () 10 - 40 ml IV UD PRN PRN Reason: SALINE FLUSH Last Admin: 02/04/19 04:46 Dose: 10 ml Documented by: Sodium Chloride () 10 ml IV UD PRN PRN Reason: Dialysis Catheter Flush Sucralfate (Carafate) 1 gm PO 1HR_ACHS [facility] Last Admin: 02/04/19 06:35 Dose: 1 gm Documented by: Medical Necessity - Tobacco Use Smoking Status: Never smoker Assessment/Plan All Active Problems (Last Reviewed 07/27/18 @ 13:58 by Kaleigh Braden PA-C) Solitary kidney (Acute) Acute kidney injury on CKD stage III (Acute) Blister of left leg without infection (Acute) Hypotension (Acute) Probable sepsis (Acute) Infected pressure ulcer (Acute) Abdominal pain (Acute) Acute kidney injury (Acute) Septic shock (Acute) Pressure ulcer of sacral region, stage 3 (Acute) Scrotal ulcer (Acute) Complicated UTI (urinary tract infection) (Acute) Constipation (Acute) Pressure ulcer of perianal region (Resolved) Pressure ulcer of buttock (Resolved) UTI (urinary tract infection) (Acute) RECOMMENDATIONS: 1. Ongoing volume optimization with dialysis per nephrology recommendations. 2. Wean supplemental oxygen to maintain saturations at or above 90%. 3. Encourage incentive spirometer use. 4. [facility] [place]. IMPRESSIONS: 1. Acute hypoxemic respiratory insufficiency/shortness of breath Patient is still requiring some supplemental oxygen to maintain appropriate saturations. Patient did have a thoracentesis completed, but laboratory work-up does not appear to be available. Wean oxygen as tolerated. Patient would benefit from volume removal from a pulmonary perspective. If a ri ght-sided thoracentesis were completed, would encourage laboratory work-up to confirm suspected transudate etiology. 2. Acute kidney injury Nephrology is currently following to assist with medical management. The patient's renal function has not recovered despite volume resuscitation. Patient appears to be tolerating dialysis at this time. There are plans for volume removal. 3. Anemia of chronic disease Continue to monitor H&H daily with plans to transfuse if hemoglobin drops below 7 g/dL. 4. History of osteomyelitis/chronic decubitus ulcers/diabetes mellitus/hypertension/hyperlipidemia/hypothyroidism Complicates care, management, recovery and prognosis. Continue home medications as indicated. Code Visit Inpatient E&M: 75826 Subs Hosp L2
--- NOTE | 2019-02-04 10:21 | CASEMGMT ---
Lilliam from [facility] here to speak with pt at this time. Updated clinicals faxed to [facility] and given to Lilliam from [facility] at this time. Pt is still awaiting precert to [facility]. SStiain PEDROZA CM
--- NOTE | 2019-02-04 11:40 | PCM.PN.HOSP ---
Patient Problems: Active and Suspected Problems (Last Reviewed 07/27/18 @ 13:58 by Kaleigh Braden PA-C) Solitary kidney (Acute) Acute kidney injury on CKD stage III (Acute) Reason for Visit: Follow-up on URSZULA, Pleural effusion Subjective: Patient was seen and examined. He complains of feeling tired. Had dialysis today. No other acute events overnight. Objective: Physical exam: General: Alert, Oriented x3, Cooperative, No apparent distress,on 1L oxygen HEENT: Atraumatic, PERRLA, EOMI, Normocephalic Oral: Moist Mucosa Neck: Supple, No JVD, Negative Carotid Bruits Lungs: - - Markedly decreased breath sounds in the right upper, mid and lower lung cavanaugh. Cardiovascular: Regular rate, Regular Rhythm, Normal S1, Normal S2, No murmurs Abdomen: - - Abdomen moderately distended, with positive fluid thrill. She had moderate tenderness of the right upper quadrant area in the area of the liver. Extremities: No clubbing, No cyanosis, No edema, Capillary Refill Less than 3 Seconds Skin: No rashes, No breakdown Musculoskeletal: No Tenderness to Palpation of Joints or Extremities Lymphatic: No Cervical, Supraclavicular, or Inguinal Adenopathy Neurological: Cranial nerves II-XII grossly intact Psych/Mental Status: Normal Affect, Appropriate, Alert and oriented to time, place, person, mood and affect Vitals/I&O's: Vital Signs Temp Pulse Resp BP Pulse Ox 98.6 F 96 18 90/38 L 96 02/04/19 09:18 02/04/19 09:18 02/04/19 09:18 02/04/19 09:18 02/04/19 09:18 Oxygen Flow Rate (L/min) [4] 2 Oxygen Flow Rate (L/min) [3] 2 Oxygen Flow Rate (L/min) [2] 2 Oxygen Flow Rate (L/min) [1 ( 2 Initial Baseline)] Oxygen Flow Rate (L/min) 2 Oxygen Delivery Method [4] Nasal Cannula Oxygen Delivery Method [3] Nasal Cannula Oxygen Delivery Method [2] Nasal Cannula Oxygen Delivery Method [1 ( Nasal Cannula Initial Baseline)] Oxygen Delivery Method Nasal Cannula Weight: 79.3 kg Body Mass Index (BMI) 25.0 Finger Stick Blood Glucose 160 Intake and Output for Last 24 Hours 02/02/19 02/03/19 02/04/19 23:59 23:59 23:59 Intake Total 1570 / 1570 950 / 1190 360 / 360 Output Total 170 / 170 450 / 450 50 / 50 Balance 1400 / 1400 500 / 740 310 / 310 Laboratory Results 02/03/19 11:47: POC Glucose 164 H 02/03/19 16:26: POC Glucose 143 H 02/03/19 16:50: Blood Type A POSITIVE, Antibody Screen NEGATIVE, Crossmatch See Detail 02/03/19 21:15: POC Glucose 206 H 02/04/19 05:00: WBC 11.8 H, RBC 2.76 L, Hgb 7.8 L, Hct 25.1 L, MCV 90.9, MCH 28.3, MCHC 31.1 L, RDW Std Deviation 51.1 H, RDW Coeff of Raji 15.5 H, Plt Count 248, MPV 8.9 02/04/19 05:00: Sodium 132 L, Potassium 4.5, Chloride 97 L, Carbon Dioxide 27.0, Anion Gap 8, BUN 38 H, Creatinine 3.35 H, Estim Creat Clear Calc 19.67, Est GFR (MDRD) Af Amer 23 L, Est GFR (MDRD) Non-Af 19 L, BUN/Creatinine Ratio 11.3, Glucose 139 H, Calcium 7.6 L, Phosphorus 4.2 02/04/19 06:37: POC Glucose 120 H Current Medications Acetaminophen (Tylenol) 650 mg PO Q6H PRN PRN PRN Reason: Pain Score 1-3/Temp > 100.7 F Last Admin: 02/03/19 00:58 Dose: 650 mg Documented by: Al Hydroxide/Mg Hydroxide (Mylanta Ii) 30 ml PO Q6H PRN PRN PRN Reason: Gastric Burning Last Admin: 02/04/19 03:24 Dose: 30 ml Documented by: Albuterol Sulfate (Ventolin Aerosols) 2.5 mg INHALATION Q2H PRN PRN PRN Reason: SOB/Wheezing Last Admin: 02/01/19 19:00 Dose: 2.5 mg Documented by: Ascorbic Acid (Vitamin C) 1,000 mg PO BID [facility] Last Admin: 02/03/19 21:19 Dose: 1,000 mg Documented by: Atorvastatin Calcium (Lipitor) 10 mg PO QHS [facility] Last Admin: 02/03/19 21:19 Dose: 10 mg Documented by: Colesevelam HCl (Welchol) 625 mg PO BID [facility] Last Admin: 02/03/19 21:19 Dose: 625 mg Documented by: [facility]ous S[facility] ([facility]) [facility] Last Admin: 02/03/19 16:28 Dose: 325 mg Documented by: Gabapentin (Neurontin) 300 mg PO QHS [facility] Last Admin: 02/03/19 21:19 Dose: 300 mg Documented by: Glucagon () 1 mg IM .X1 PRN PRN Reason: Hypoglycemia Guaifenesin (Robitussin) 20 ml PO Q4H PRN PRN PRN Reason: COUGH Heparin Sodium (Porcine) () 2,500 units IV UD PRN PRN Reason: Dialysis Cath Heparin Flush Sodium Chloride () 250 mls @ 15 mls/hr IV .[id number] PRN PRN Reason: Saline Flush Sodium Chloride () 250 mls @ 15 mls/hr IV .[id number] PRN PRN Reason: Additional IVPB Infusion Dextrose (Dextrose 10%-Water) 250 mls @ 999 mls/hr IV .Q16M PRN; Protocol PRN Reason: HYPOGLYCEMIA Insulin Human Lispro (Humalog Kwikpen (Bkc)) 0 unit SC [facility]; Protocol Last Admin: 02/04/19 06:38 Dose: Not Given Documented by: Levothyroxine Sodium (Synthroid) 25 mcg PO DAILY@0600 [facility] Last Admin: 02/04/19 06:34 Dose: 25 mcg Documented by: Melatonin (Melatonin) 3 mg PO QHS PRN PRN PRN Reason: INSOMNIA Last Admin: 01/31/19 02:30 Dose: 3 mg Documented by: Metoprolol Tartrate (Lopressor (Beta Roxy)) 25 mg PO BID [facility] Last Admin: 01/29/19 09:17 Dose: Not Given Documented by: Morphine Sulfate () 2 mg IV Q3H PRN PRN PRN Reason: Pain Score 6-10/10 Last Admin: 01/31/19 03:58 Dose: 2 mg Documented by: Multivitamins/Minerals (Multivitamin With Minerals) 1 tablet PO DAILY@0800 [facility] Last Admin: 02/03/19 08:59 Dose: 1 tablet Documented by: Nitroglycerin (Nitrostat) 0.4 mg SUBLINGUAL Q5M PRN PRN Reason: CARDIAC/CHEST PAIN Ondansetron HCl (Zofran) 4 mg IV Q8H PRN PRN PRN Reason: NAUSEA/VOMITING Last Admin: 02/04/19 04:46 Dose: 4 mg Documented by: Oxycodone HCl (Oxyir) 5 mg PO Q4H PRN PRN PRN Reason: Pain Score 4-5/10 Last Admin: 01/31/19 17:10 Dose: 5 mg Documented by: Pantoprazole Sodium (Protonix) 40 mg PO DAILY [facility] Last Admin: 02/03/19 10:28 Dose: 40 mg Documented by: Polyethylene Glycol (Miralax) 17 gm PO DAILY PRN PRN PRN Reason: Constipation Last Admin: 01/30/19 11:25 Dose: 17 gm Documented by: Senna (Senokot) 2 tablet PO BID PRN PRN PRN Reason: CONSTIPATION Senna/Docusate Sodium (Senokot-S, Itzel-Colace) 2 tablet PO BID PRN PRN PRN Reason: Constipation Last Admin: 01/30/19 10:00 Dose: 2 tablet Documented by: Sodium Chloride () 10 - 40 ml IV UD PRN PRN Reason: SALINE FLUSH Last Admin: 02/04/19 04:46 Dose: 10 ml Documented by: Sodium Chloride () 10 ml IV UD PRN PRN Reason: Dialysis Catheter Flush Sucralfate (Carafate) 1 gm PO 1HR_ACHS [facility] Last Admin: 02/04/19 06:35 Dose: 1 gm Documented by: STROKE Vital Signs/Narrative: Vital Signs Temp Pulse Resp BP Pulse Ox 02/04/19 09:18 98.6 F 96 18 90/38 L 96 Medical Necessity - Tobacco Use Smoking Status: Never smoker Assessment/Plan All Active Problems (Last Reviewed 07/27/18 @ 13:58 by Kaleigh Braden PA-C) Solitary kidney (Acute) Acute kidney injury on CKD stage III (Acute) Blister of left leg without infection (Acute) Hypotension (Acute) Probable sepsis (Acute) Infected pressure ulcer (Acute) Abdominal pain (Acute) Acute kidney injury (Acute) Septic shock (Acute) Pressure ulcer of sacral region, stage 3 (Acute) Scrotal ulcer (Acute) Complicated UTI (urinary tract infection) (Acute) Constipation (Acute) Pressure ulcer of perianal region (Resolved) Pressure ulcer of buttock (Resolved) UTI (urinary tract infection) (Acute) 1. URSZULA with hyperkalemia, new to dialysis Cr is 3.35, baseline Cr 0.8, Status post dialysis by temporary catheter, nephrology following dialysis today 2. Acute hypoxic respiratory insufficiency due to left sided pleural effusion s/p thoracocentesis CAT scan of the chest shows bilateral pleural effusion, left greater than right, extensive consolidation throughout the left lung associated with collapse of the left lower lung, right lower lobe consolidation, pericardial effusion, subcutaneous edema Patient is on 2 L of oxygen We will continue to monitor and wean off for SPO2 while patient undergoes fluid removal from dialysis 3. Acute on chronic anemia, Hb stable Will transfuse when hemoglobin is less than 7 4. Constipation, on multiple bowel regimen 5. 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 Type 2 diabetes mellitus, BS is stable, On insulin sliding scale. Will continue to monitor 7. Hypertension, relatively hypotensive, off amlodipine and metoprolol, will continue to monitor 8. Hyperlipidemia, continue on statin. 9. Hypothyroidism, continue on Synthroid 10. DVT prophylaxis -unable to use SCDs or chemoprophylaxis on account of anemia. 11. Code status: Full code 12. Disposition: LTAC vs SNF, discharge planning ongoing Code Visit Inpatient E&M: 54939 Subs Hosp L2
[2019-02-04] MEDS: Ferrous Sulfate 325 MG Tablet PO ×2 (12:41→17:43)
--- NOTE | 2019-02-04 12:41 | DIALYSIS ---
HD X 3.5 HOURS ON 2K BATH. [id number] TOLERATED WELL. REPORT TO [facility] PEDROZA POST TREAtment
[2019-02-04] MEDS: Multivitamins,Ther W-Minerals Tablet 1 TABLET PO (12:42)
[2019-02-04] MEDS: Pantoprazole Sodium 40 MG Tablet PO (12:42)
[2019-02-04] MEDS: Ascorbic Acid 500 MG Tablet 1000 MG PO ×2 (12:42→21:57)
[2019-02-04 12:56] LABS: Bedside Glucose 124 mg/dL (70-110)
--- NOTE | 2019-02-04 15:31 | CASEMGMT ---
SONIA called Hanane at [facility] and let her know patient is going to [facility]. Luann ALLEN MSW
--- NOTE | 2019-02-04 15:43 | CASEMGMT ---
Call from Lilliam at [facility] stating that precert was obtained for pt to go to LTACH at this time. Dr. Rodriguezil aware and she states that pt can be discharged tomorrow to LTACH. Zenia PEDROZA CM
--- NOTE | 2019-02-04 15:44 | PN.RENAL_ITS ---
Patient Problems: Active and Suspected Problems (Last Reviewed 07/27/18 @ 13:58 by Kaleigh Braden PA-C) Solitary kidney (Acute) Acute kidney injury on CKD stage III (Acute) Subjective: Pt was dialyzed earlier today with 2.6 L UF No nausea No vomiting Breathing improved after HD session today - Physical Exam Vitals/I&O's: Vital Signs Temp Pulse Resp BP Pulse Ox 97.6 F L 96 18 113/51 L 97 02/04/19 12:40 02/04/19 14:59 02/04/19 12:40 02/04/19 12:40 02/04/19 12:40 Oxygen Flow Rate (L/min) [4] 2 Oxygen Flow Rate (L/min) [3] 2 Oxygen Flow Rate (L/min) [2] 2 Oxygen Flow Rate (L/min) [1 ( 2 Initial Baseline)] Oxygen Flow Rate (L/min) 2 Oxygen Delivery Method [4] Nasal Cannula Oxygen Delivery Method [3] Nasal Cannula Oxygen Delivery Method [2] Nasal Cannula Oxygen Delivery Method [1 ( Nasal Cannula Initial Baseline)] Oxygen Delivery Method Nasal Cannula Weight: 79.3 kg Body Mass Index (BMI) 25.0 Finger Stick Blood Glucose 160 Intake and Output for Last 24 Hours 02/02/19 02/03/19 02/04/19 23:59 23:59 23:59 Intake Total 1570 / 1570 950 / 1190 480 / 480 Output Total 170 / 170 450 / 450 2750 / 2750 Balance 1400 / 1400 500 / 740 -2270 / -2270 General: Alert, Oriented x3 HEENT: Atraumatic Oral: Moist Mucosa Neck: Supple, No JVD Lungs: Clear to auscultation, No rhonchi, No wheeze Cardiovascular: Regular rate, Regular Rhythm, Normal S1, Normal S2 Abdomen: Bowel Sounds Present, Soft, Non Tender, Non-Distended Extremities: - - B/L AKA Musculoskeletal: No Tenderness to Palpation of Joints or Extremities Lymphatic: No Cervical, Supraclavicular, or Inguinal Adenopathy Neurological: Cranial nerves II-XII grossly intact, Neuro grossly intact Psych/Mental Status: Normal Affect Laboratory Results 02/03/19 16:26: POC Glucose 143 H 02/03/19 16:50: Blood Type A POSITIVE, Antibody Screen NEGATIVE, Crossmatch See Detail 02/03/19 21:15: POC Glucose 206 H 02/04/19 05:00: WBC 11.8 H, RBC 2.76 L, Hgb 7.8 L, Hct 25.1 L, MCV 90.9, MCH 28.3, MCHC 31.1 L, RDW Std Deviation 51.1 H, RDW Coeff of Raji 15.5 H, Plt Count 248, MPV 8.9 02/04/19 05:00: Sodium 132 L, Potassium 4.5, Chloride 97 L, Carbon Dioxide 27.0, Anion Gap 8, BUN 38 H, Creatinine 3.35 H, Estim Creat Clear Calc 19.67, Est GFR (MDRD) Af Amer 23 L, Est GFR (MDRD) Non-Af 19 L, BUN/Creatinine Ratio 11.3, Glucose 139 H, Calcium 7.6 L, Phosphorus 4.2 02/04/19 06:37: POC Glucose 120 H 02/04/19 12:28: POC Glucose 124 H Current Medications Acetaminophen (Tylenol) 650 mg PO Q6H PRN PRN PRN Reason: Pain Score 1-3/Temp > 100.7 F Last Admin: 02/03/19 00:58 Dose: 650 mg Documented by: Al Hydroxide/Mg Hydroxide (Mylanta Ii) 30 ml PO Q6H PRN PRN PRN Reason: Gastric Burning Last Admin: 02/04/19 03:24 Dose: 30 ml Documented by: Albuterol Sulfate (Ventolin Aerosols) 2.5 mg INHALATION Q2H PRN PRN PRN Reason: SOB/Wheezing Last Admin: 02/01/19 19:00 Dose: 2.5 mg Documented by: Ascorbic Acid (Vitamin C) 1,000 mg PO BID [facility] Last Admin: 02/04/19 12:42 Dose: 1,000 mg Documented by: Atorvastatin Calcium (Lipitor) 10 mg PO QHS [facility] Last Admin: 02/03/19 21:19 Dose: 10 mg Documented by: Colesevelam HCl (Welchol) 625 mg PO BID [facility] Last Admin: 02/04/19 12:42 Dose: 625 mg Documented by: [facility]) [facility] Last Admin: 02/04/19 12:41 Dose: 325 mg Documented by: Gabapentin (Neurontin) 300 mg PO QHS [facility] Last Admin: 02/03/19 21:19 Dose: 300 mg Documented by: Glucagon () 1 mg IM .X1 PRN PRN Reason: Hypoglycemia Guaifenesin (Robitussin) 20 ml PO Q4H PRN PRN PRN Reason: COUGH Heparin Sodium (Porcine) () 2,500 units IV UD PRN PRN Reason: Dialysis Cath Heparin Flush Sodium Chloride () 250 mls @ 15 mls/hr IV .[id number] PRN PRN Reason: Saline Flush Sodium Chloride () 250 mls @ 15 mls/hr IV .[id number] PRN PRN Reason: Additional IVPB Infusion Dextrose (Dextrose 10%-Water) 250 mls @ 999 mls/hr IV .Q16M PRN; Protocol PRN Reason: HYPOGLYCEMIA Insulin Human Lispro (Humalog Kwikpen (Bkc)) 0 unit SC [facility]; Protocol Last Admin: 02/04/19 12:42 Dose: Not Given Documented by: Levothyroxine Sodium (Synthroid) 25 mcg PO DAILY@0600 [facility] Last Admin: 02/04/19 06:34 Dose: 25 mcg Documented by: Melatonin (Melatonin) 3 mg PO QHS PRN PRN PRN Reason: INSOMNIA Last Admin: 01/31/19 02:30 Dose: 3 mg Documented by: Metoprolol Tartrate (Lopressor (Beta Roxy)) 25 mg PO BID [facility] Last Admin: 01/29/19 09:17 Dose: Not Given Documented by: Morphine Sulfate () 2 mg IV Q3H PRN PRN PRN Reason: Pain Score 6-10/10 Last Admin: 01/31/19 03:58 Dose: 2 mg Documented by: Multivitamins/Minerals (Multivitamin With Minerals) 1 tablet PO DAILY@0800 [facility] Last Admin: 02/04/19 12:42 Dose: 1 tablet Documented by: Nitroglycerin (Nitrostat) 0.4 mg SUBLINGUAL Q5M PRN PRN Reason: CARDIAC/CHEST PAIN Ondansetron HCl (Zofran) 4 mg IV Q8H PRN PRN PRN Reason: NAUSEA/VOMITING Last Admin: 02/04/19 04:46 Dose: 4 mg Documented by: Oxycodone HCl (Oxyir) 5 mg PO Q4H PRN PRN PRN Reason: Pain Score 4-5/10 Last Admin: 01/31/19 17:10 Dose: 5 mg Documented by: Pantoprazole Sodium (Protonix) 40 mg PO DAILY [facility] Last Admin: 02/04/19 12:42 Dose: 40 mg Documented by: Polyethylene Glycol (Miralax) 17 gm PO DAILY PRN PRN PRN Reason: Constipation Last Admin: 01/30/19 11:25 Dose: 17 gm Documented by: Senna (Senokot) 2 tablet PO BID PRN PRN PRN Reason: CONSTIPATION Senna/Docusate Sodium (Senokot-S, Itzel-Colace) 2 tablet PO BID PRN PRN PRN Reason: Constipation Last Admin: 01/30/19 10:00 Dose: 2 tablet Documented by: Sodium Chloride () 10 - 40 ml IV UD PRN PRN Reason: SALINE FLUSH Last Admin: 02/04/19 04:46 Dose: 10 ml Documented by: Sodium Chloride () 10 ml IV UD PRN PRN Reason: Dialysis Catheter Flush Sodium Hypochlorite (Dakins Solution 0.25% (1/2 Strength)) 1 applic TOPICAL DAILY [facility]; Protocol Sucralfate (Carafate) 1 gm PO 1HR_ACHS [facility] Last Admin: 02/04/19 12:42 Dose: 1 gm Documented by: Medical Necessity - Tobacco Use Smoking Status: Never smoker Assessment/Plan All Active Problems (Last Reviewed 07/27/18 @ 13:58 by Kaleigh Braden PA-C) Solitary kidney (Acute) Acute kidney injury on CKD stage III (Acute) Blister of left leg without infection (Acute) Hypotension (Acute) Probable sepsis (Acute) Infected pressure ulcer (Acute) Abdominal pain (Acute) Acute kidney injury (Acute) Septic shock (Acute) Pressure ulcer of sacral region, stage 3 (Acute) Scrotal ulcer (Acute) Complicated UTI (urinary tract infection) (Acute) Constipation (Acute) Pressure ulcer of perianal region (Resolved) Pressure ulcer of buttock (Resolved) UTI (urinary tract infection) (Acute) Acute renal failure. URSZULA is likely ATN. Now HD dependent TC was placed this am. Pt had HD session today with 2.6 L UF which he tolerated well Continue to monitor for kidney function recovery Hyperkalemia: resolved with HD
[2019-02-04 17:51] LABS: Bedside Glucose 152 mg/dL (70-110)
[2019-02-04] MEDS: oxyCODONE 5 MG Tablet PO (18:51)
[2019-02-04] MEDS: Gabapentin 300 MG Capsule PO (21:57)
[2019-02-04] MEDS: Atorvastatin Calcium 10 MG Tablet PO (21:57)
[2019-02-04 22:10] LABS: Bedside Glucose 216 mg/dL (70-110)
[2019-02-05] VITALS (13 sets, daily range): BP systolic 99–126; BP diastolic 52–61; PULSE 94–152; RESP 18–22; TEMP 35.8–36.5; O2SAT 96–100
[2019-02-05 03:06] LABS: Bedside Glucose 124 mg/dL (70-110)
[2019-02-05] MEDS: Sucralfate 1 GM Tablet PO ×3 (06:09→15:34)
[2019-02-05] MEDS: Levothyroxine 25 MCG TABLET PO (06:10)
[2019-02-05] MEDS: Ondansetron 4 MG/2 ML Vial IV (06:11)
[2019-02-05] MEDS: 0.9% Saline Lock 10 ML Syringe IV ×3 (06:11→15:27)
[2019-02-05 06:35] LABS: Bedside Glucose 201 mg/dL (70-110)
[2019-02-05] MEDS: Multivitamins,Ther W-Minerals Tablet 1 TABLET PO (08:18)
[2019-02-05] MEDS: Ferrous Sulfate 325 MG Tablet PO (08:18)
[2019-02-05] MEDS: Pantoprazole Sodium 40 MG Tablet PO (08:19)
[2019-02-05] MEDS: Ascorbic Acid 500 MG Tablet 1000 MG PO (08:21)
--- NOTE | 2019-02-05 08:32 | TREXTCAR_ITS ---
- Diet 02/01/19 17:02 Diet: Carbohydrate Controlled Is pt able to select menu?: Yes Diet Comments: low K - Routine Orders/Code Status O2 Liters per Minute: 2 O2 Frequency: Continuous Keep PO Greater than or Equal to (%): 90 Routine Lab Work: CBC - within 3 days, BMP - within 3 days Code Status: Full Code - Wound(s) BILATERAL HIPS Wound Type: Pressure Injury abdomen #1 (most proximal) Wound Type: ulcered area Dressing Change: AntiMicrobial (Aquacel AG, etc) abdomen #2 (just below stoma) Wound Type: ulcered area Dressing Change: AntiMicrobial (Aquacel AG, etc) abdomen #3 (most distal) Wound Type: ulcered area Dressing Change: AntiMicrobial (Aquacel AG, etc) left ischium Wound Type: Pressure Injury Dressing Change: AntiMicrobial (Aquacel AG, etc) sacrum Wound Type: Pressure Injury Dressing Change: AntiMicrobial (Aquacel AG, etc) right ischium Wound Type: Pressure Injury Dressing Change: Wet to Dry Dressing 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 - Therapies Weight Bearing: Non weight bearing - Allergies/Procedures Done in Hospital Allergies/Adverse Reactions: Allergies codeine Adverse Reaction (Verified 01/27/19 16:27) heavy sweats prednisone Adverse Reaction (Verified 01/27/19 16:27) headache, heavy sweats Procedures: None - Type of Care/Length of Stay Estimated LOS: Convalescent Care Less Than 30 days Type of Care Needed: Skilled Rehab Potential: Fair Prognosis: Fair - Additional Orders/Day of Discharge Day of Discharge: 02/05/19 - Dietary and Speech Recommendations Dietitian Recommendations/Changes: Suggest diet change to Carbohydrate- Controlled; low sodium/K+ with 1500 ml fluid restriction as needed. Rec Alan 1 packet BID to promote wound healing-- order through pharmacy. - Follow Up Care Primary Care Physician: Angelina Caceres DO [Primary Care Provider] - Please follow up with your Primary Care Physician in: within 1-2 weeks of discharge Please Follow Up With: Nephrology When: per dialysis schedule
--- NOTE | 2019-02-05 08:34 | PN_ITS ---
Patient Problems: Active and Suspected Problems (Last Reviewed 07/27/18 @ 13:58 by Kaleigh Braden PA-C) Solitary kidney (Acute) Acute kidney injury on CKD stage III (Acute) Subjective: Patient reports subjective improvement in dyspnea following hemodialysis yesterday. Patient did have 2.6 L removed. Patient has remained hemod ynamically stable on 2 L overnight. - Physical Exam Vitals/I&O's: Vital Signs Temp Pulse Resp BP Pulse Ox 36.4 C L 94 18 116/58 L 96 02/05/19 05:40 02/05/19 07:00 02/05/19 05:40 02/05/19 05:40 02/05/19 05:40 Oxygen Flow Rate (L/min) [4] 2 Oxygen Flow Rate (L/min) [3] 2 Oxygen Flow Rate (L/min) [2] 2 Oxygen Flow Rate (L/min) [1 ( 2 Initial Baseline)] Oxygen Flow Rate (L/min) 2 Oxygen Delivery Method [4] Nasal Cannula Oxygen Delivery Method [3] Nasal Cannula Oxygen Delivery Method [2] Nasal Cannula Oxygen Delivery Method [1 ( Nasal Cannula Initial Baseline)] Oxygen Delivery Method Nasal Cannula Weight: 89.8 kg Body Mass Index (BMI) 25.0 Finger Stick Blood Glucose 160 Intake and Output for Last 24 Hours 02/03/19 02/04/19 02/05/19 23:59 23:59 23:59 Intake Total 950 / 1190 840 / 840 120 / 120 Output Total 450 / 450 2775 / 2775 75 / 75 Balance 500 / 740 -1935 / -1935 45 / 45 General: Alert, Oriented x3, Cooperative, No apparent distress, - - Appears older than stated age. No conversational dyspnea. HEENT: Atraumatic, PERRLA, EOMI, Normocephalic, - - No scleral icterus or injection noted. Nasal cannula was found misplaced. Oral: Moist Mucosa, No Gingival or Mucosal Lesions/ Ulcerations Neck: Supple, No Nodes, Trachea Midline, JVD, Right Lungs: No rhonchi, No wheeze, No rales, Diminished, - - Fair effort. Symmetric expansion. Cardiovascular: Regular rate, Regular Rhythm, Normal S1, Normal S2, No murmurs, No rub noted, No Gallop Abdomen: Bowel Sounds Present, Soft, Non Tender, Non-Distended Extremities: No cyanosis, Capillary Refill Less than 3 Seconds, Edema Skin: No rashes, No breakdown Musculoskeletal: No Tenderness to Palpation of Joints or Extremities Lymphatic: No Cervical, Supraclavicular, or Inguinal Adenopathy Neurological: - - Unchanged from previous examinations Psych/Mental Status: Appropriate, Flat Affect Laboratory Results 02/04/19 12:28: POC Glucose 124 H 02/04/19 17:27: POC Glucose 152 H 02/04/19 21:50: POC Glucose 216 H 02/05/19 03:02: POC Glucose 124 H 02/05/19 06:30: POC Glucose 201 H Current Medications Acetaminophen (Tylenol) 650 mg PO Q6H PRN PRN PRN Reason: Pain Score 1-3/Temp > 100.7 F Last Admin: 02/03/19 00:58 Dose: 650 mg Documented by: Al Hydroxide/Mg Hydroxide (Mylanta Ii) 30 ml PO Q6H PRN PRN PRN Reason: Gastric Burning Last Admin: 02/04/19 03:24 Dose: 30 ml Documented by: Albuterol Sulfate (Ventolin Aerosols) 2.5 mg INHALATION Q2H PRN PRN PRN Reason: SOB/Wheezing Last Admin: 02/01/19 19:00 Dose: 2.5 mg Documented by: Ascorbic Acid (Vitamin C) 1,000 mg PO BID [facility] Last Admin: 02/05/19 08:21 Dose: 1,000 mg Documented by: Atorvastatin Calcium (Lipitor) 10 mg PO QHS [facility] Last Admin: 02/04/19 21:57 Dose: 10 mg Documented by: Colesevelam HCl (Welchol) 625 mg PO BID [facility] Last Admin: 02/05/19 08:19 Dose: 625 mg Documented by: Ferrous Sulfate ([facility]ous Sulfate) [facility] Last Admin: 02/05/19 08:18 Dose: 325 mg Documented by: Gabapentin (Neurontin) 300 mg PO QHS [facility] Last Admin: 02/04/19 21:57 Dose: 300 mg Documented by: Glucagon () 1 mg IM .X1 PRN PRN Reason: Hypoglycemia Guaifenesin (Robitussin) 20 ml PO Q4H PRN PRN PRN Reason: COUGH Heparin Sodium (Porcine) () 2,500 units IV UD PRN PRN Reason: Dialysis Cath Heparin Flush Sodium Chloride () 250 mls @ 15 mls/hr IV .[id number] PRN PRN Reason: Saline Flush Sodium Chloride () 250 mls @ 15 mls/hr IV .[id number] PRN PRN Reason: Additional IVPB Infusion Dextrose (Dextrose 10%-Water) 250 mls @ 999 mls/hr IV .Q16M PRN; Protocol PRN Reason: HYPOGLYCEMIA Insulin Human Lispro (Humalog Kwikpen (Bkc)) 0 unit SC ACHS [facility]; Protocol Last Admin: 02/05/19 06:31 Dose: Not Given Documented by: Levothyroxine Sodium (Synthroid) 25 mcg PO DAILY@0600 [facility] Last Admin: 02/05/19 06:10 Dose: 25 mcg Documented by: Melatonin (Melatonin) 3 mg PO QHS PRN PRN PRN Reason: INSOMNIA Last Admin: 01/31/19 02:30 Dose: 3 mg Documented by: Metoprolol Tartrate (Lopressor (Beta Roxy)) 25 mg PO BID [facility] Last Admin: 01/29/19 09:17 Dose: Not Given Documented by: Morphine Sulfate () 2 mg IV Q3H PRN PRN PRN Reason: Pain Score 6-10/10 Last Admin: 01/31/19 03:58 Dose: 2 mg Documented by: Multivitamins/Minerals (Multivitamin With Minerals) 1 tablet PO DAILY@0800 [facility] Last Admin: 02/05/19 08:18 Dose: 1 tablet Documented by: Nitroglycerin (Nitrostat) 0.4 mg SUBLINGUAL Q5M PRN PRN Reason: CARDIAC/CHEST PAIN Ondansetron HCl (Zofran) 4 mg IV Q8H PRN PRN PRN Reason: NAUSEA/VOMITING Last Admin: 02/05/19 06:11 Dose: 4 mg Documented by: Oxycodone HCl (Oxyir) 5 mg PO Q4H PRN PRN PRN Reason: Pain Score 4-5/10 Last Admin: 02/04/19 18:51 Dose: 5 mg Documented by: Pantoprazole Sodium (Protonix) 40 mg PO DAILY [facility] Last Admin: 02/05/19 08:19 Dose: 40 mg Documented by: Polyethylene Glycol (Miralax) 17 gm PO DAILY PRN PRN PRN Reason: Constipation Last Admin: 01/30/19 11:25 Dose: 17 gm Documented by: Senna (Senokot) 2 tablet PO BID PRN PRN PRN Reason: CONSTIPATION Senna/Docusate Sodium (Senokot-S, Itzel-Colace) 2 tablet PO BID PRN PRN PRN Reason: Constipation Last Admin: 01/30/19 10:00 Dose: 2 tablet Documented by: Sodium Chloride () 10 - 40 ml IV UD PRN PRN Reason: SALINE FLUSH Last Admin: 02/05/19 06:11 Dose: 10 ml Documented by: Sodium Chloride () 10 ml IV UD PRN PRN Reason: Dialysis Catheter Flush Sodium Hypochlorite (Dakins Solution 0.25% (1/2 Strength)) 1 applic TOPICAL DAILY [facility]; Protocol Sucralfate (Carafate) 1 gm PO 1HR_ACHS [facility] Last Admin: 02/05/19 06:09 Dose: 1 gm Documented by: Medical Necessity - Tobacco Use Smoking Status: Never smoker Assessment/Plan All Active Problems (Last Reviewed 07/27/18 @ 13:58 by Kaleigh Braden PA-C) Solitary kidney (Acute) Acute kidney injury on CKD stage III (Acute) Blister of left leg without infection (Acute) Hypotension (Acute) Probable sepsis (Acute) Infected pressure ulcer (Acute) Abdominal pain (Acute) Acute kidney injury (Acute) Septic shock (Acute) Pressure ulcer of sacral region, stage 3 (Acute) Scrotal ulcer (Acute) Complicated UTI (urinary tract infection) (Acute) Constipation (Acute) Pressure ulcer of perianal region (Resolved) Pressure ulcer of buttock (Resolved) UTI (urinary tract infection) (Acute) RECOMMENDATIONS: 1. Ongoing volume optimization with dialysis per nephrology recommendations. 2. Wean supplemental oxygen to maintain saturations at or above 90%. 3. Encourage incentive spirometer use. 4. Okay to transfer to [facility] from my perspective IMPRESSIONS: 1. Acute hypoxemic respiratory insufficiency/shortness of breath Patient is still requiring some supplemental oxygen to maintain appropriate saturations. Patient did have a thoracentesis completed, but laboratory work-up does not appear to be available. Wean oxygen as tolerated. Patient would benefit from volume removal from a pulmonary perspective. If a right-sided thoracentesis were completed, would encourage laboratory work-up to confirm suspected transudate etiology. This has not been clinically significant previously and may resolve with volume removal with hemodialysis. 2. Acute kidney injury Nephrology is currently following to assist with medical management. The patient's renal function has not recovered despite volume resuscitation. Patient appears to be tolerating dialysis at this time. There are plans for volume removal. 3. Anemia of chronic disease Continue to monitor H&H daily with plans to transfuse if hemoglobin drops below 7 g/dL. 4. History of osteomyelitis/chronic decubitus ulcers/diabetes mellitus/hypertension/hyperlipidemia/hypothyroidism Complicates care, management, recovery and prognosis. Continue home medications as indicated. Code Visit Inpatient E&M: 74653 Subs Hosp L2
--- NOTE | 2019-02-05 08:45 | DS.PCM_ITS ---
Discharge Date and Diagnosis Date of Admission: 01/27/19 Date of Discharge: 02/05/19 - Primary Discharge Diagnosis Active and Suspected Problems (Last Reviewed 07/27/18 @ 13:58 by Kaleigh Braden PA-C) Acute kidney injury on CKD stage III (Acute), new to dialysis Acute hypoxic respiratory insufficiency Left-sided pleural effusion Acute on chronic anemia - Secondary Discharge Diagnosis Chronic Problems (Last Reviewed 07/27/18 @ 13:58 by Kaleigh Braden PA-C) Small bowel obstruction, partial (Chronic) Pressure ulcer of right hip, stage 4 (Chronic) Abscess of right hip (Chronic) Methicillin resistant Staphylococcus aureus infection (Chronic) Family history of skin cancer (Chronic) Right ischial pressure sore, 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) Stage III pressure ulcer of buttock (Chronic) Stage III pressure ulcer of ankle (Chronic) Pressure ulcer of left leg, stage 3 (Chronic) Debility (Chronic) Pressure ulcer of right hip, stage 3 (Chronic) Pressure ulcer of left leg, stage 3 (Chronic) Obesity (Chronic) Renal insufficiency (Chronic) Anemia (Chronic) 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) Ulcer of left lower extremity with 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) Malnutrition (Chronic) Vascular disease, peripheral (Chronic) 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) Hypercholesterolemia (Chronic) Paraplegia (Chronic) Hyperlipemia (Chronic) Hypertension (Chronic) History of urostomy (Chronic) Kidney failure (Chronic) 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) Hypothyroidism (Chronic) Diabetes mellitus (Chronic) Hospital Course and Treatment Imaging Results: Clinical Impression(s) from Imaging Studies Renal Ultrasound 01/28/19 08:11 IMPRESSION: 1. No hydronephrosis. 2. Severe left renal cortical atrophy. 3. Bilateral simple renal cysts. Electronically Signed: Truman Perez MD ([place]) at 16:54 EST , Service support , Abdomen X-Ray 01/29/19 13:56 IMPRESSION: Moderate general increase in colonic bowel gas and moderate stool without other acute abdominal or pelvic findings. Electronically Signed: Ximena Jain MD at 17:29 EST , Service support , Chest X-Ray 01/30/19 01:55 IMPRESSION: Left-sided pleural effusion with possible left lower lobe collapse. If indicated, follow-up with bronchoscopy or CT chest may further characterize these findings. Asymmetric congestive heart failure versus right perihilar pneumonia. Electronically Signed: Deja Ford MD at 2:18 EST , Service support , Abdomen X-Ray 01/30/19 08:40 IMPRESSION: Prominent air within the colonic markings without definitive air fluid levels to suggest underlying ileus versus obstruction, clinically correlate. Electronically Signed: Saw Verdugo DO at 10:31 EST , Service support , Chest X-Ray 01/30/19 14:25 Chest X-Ray 01/31/19 04:50 IMPRESSION: Stable near complete opacification of the left hemithorax consistent with an underlying effusion and associated consolidation. Right pleural effusion. Electronically Signed: Mimi Romero MD at 10:13 EST Tel , Service support , Chest CT 01/31/19 07:16 IMPRESSION: Bilateral pleural effusions, left greater than right. Extensive consolidation throughout the left lung associated with collapse of the left lower lobe. Right lower lobe consolidation. Pericardial effusion. Subcutaneous edema. Electronically Signed: Mimi Romero MD at 9:14 EST Tel , Service support , Chest X-Ray 02/01/19 14:57 IMPRESSION: Satisfactory position of the left-sided dual-lumen catheter. Electronically Signed: Andre Renee at 16:10 EST Tel , Service support , Thoracentesis Ultrasound 02/02/19 08:07 IMPRESSION: Successful sonographic guided thoracentesis on the left with 1450 cc of pleural effusion removed. Electronically Signed: Sivakumar Peoples MD at 12:25 EST Tel [phone], Service support , ADDENDUM: 02/05/19 1601 IMPRESSION: Successful sonographic guided thoracentesis on the left with 1450 cc of pleural effusion removed. Electronically Signed: Sivakumar Peoples MD at 12:25 EST Tel [phone], Service support , Chest X-Ray 02/02/19 11:55 IMPRESSION: No evidence of mediastinal shift or pneumothorax. Significant reduction of the left pleural effusion with residual mild to moderate left pleural effusion. There is mild to moderate right pleural effusion, increased since prior. Electronically Signed: Sivakumar Peoples MD at 12:08 EST Tel [phone], Service support , Chest X-Ray 02/02/19 15:45 IMPRESSION: No evidence of mediastinal shift or pneumothorax. 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 Patient has been hyperkalemic in a care home and was on Kayexalate. His baseline creatinine is 0.8-1.2. He was admitted with a creatinine of 3.95. He was also found to be anemic. He has history of a solitary right kidney. He was followed by nephrology. His kidney function got worse, he had hemodialysis catheter placed, he was started on hemodialysis. Patient had 3 sessions of dialysis in a row. He had a tunneled catheter placed on 02/04/19. Patient was also found to have left-sided pleural effusion. He was on 2 L of oxygen. Fluid removal was encouraged by dialysis. Patient underwent an ultrasound guided thoracocentesis on 02/02/19, 1450 mls were removed. Patient felt improved. Dialysis was continued. He was transfused 1 unit of packed RBC on 02/03/19. Hemoglobin at discharge was 7.8. Patient was accepted to [facility]. Subjective: On the day of discharge, patient had dialysis. Denied any new complaints. Objective: Physical exam: General: Alert, Oriented x3, Cooperative, No apparent distress, on 2L oxygen HEENT: Atraumatic, PERRLA, EOMI, Normocephalic Oral: Moist Mucosa Neck: Supple, No JVD, Negative Carotid Bruits Lungs: - - Markedly decreased breath sounds in the right upper, mid and lower lung [place]. Cardiovascular: Regular rate, Regular Rhythm, Normal S1, Normal S2, No murmurs Abdomen: - - Abdomen moderately distended, with positive fluid thrill. She had moderate tenderness of the right upper quadrant area in the area of the liver. Extremities: No clubbing, No cyanosis, No edema, Capillary Refill Less than 3 Seconds Skin: No rashes, No breakdown Musculoskeletal: No Tenderness to Palpation of Joints or Extremities Lymphatic: No Cervical, Supraclavicular, or Inguinal Adenopathy Neurological: Cranial nerves II-XII grossly intact Psych/Mental Status: Normal Affect, Appropriate, Alert and oriented to time, place, person, mood and affect - Physical Exam Vitals/I&O's: Vital Signs Temp Pulse Resp BP Pulse Ox 97.6 F L 94 18 116/58 L 96 02/05/19 05:40 02/05/19 07:00 02/05/19 05:40 02/05/19 05:40 02/05/19 05:40 Oxygen Flow Rate (L/min) [4] 2 Oxygen Flow Rate (L/min) [3] 2 Oxygen Flow Rate (L/min) [2] 2 Oxygen Flow Rate (L/min) [1 ( 2 Initial Baseline)] Oxygen Flow Rate (L/min) 2 Oxygen Delivery Method [4] Nasal Cannula Oxygen Delivery Method [3] Nasal Cannula Oxygen Delivery Method [2] Nasal Cannula Oxygen Delivery Method [1 ( Nasal Cannula Initial Baseline)] Oxygen Delivery Method Nasal Cannula Weight: 89.8 kg Body Mass Index (BMI) 25.0 Finger Stick Blood Glucose 160 Intake and Output for Last 24 Hours 02/03/19 02/04/19 02/05/19 23:59 23:59 23:59 Intake Total 950 / 1190 840 / 840 120 / 120 Output Total 450 / 450 2775 / 2775 75 / 75 Balance 500 / 740 -1935 / -1935 45 / 45 Laboratory Results 02/04/19 12:28: POC Glucose 124 H 02/04/19 17:27: POC Glucose 152 H 02/04/19 21:50: POC Glucose 216 H 02/05/19 03:02: POC Glucose 124 H 02/05/19 06:30: POC Glucose 201 H Current Medications Acetaminophen (Tylenol) 650 mg PO Q6H PRN PRN PRN Reason: Pain Score 1-3/Temp > 100.7 F Last Admin: 02/03/19 00:58 Dose: 650 mg Documented by: Al Hydroxide/Mg Hydroxide (Mylanta Ii) 30 ml PO Q6H PRN PRN PRN Reason: Gastric Burning Last Admin: 02/04/19 03:24 Dose: 30 ml Documented by: Albuterol Sulfate (Ventolin Aerosols) 2.5 mg INHALATION Q2H PRN PRN PRN Reason: SOB/Wheezing Last Admin: 02/01/19 19:00 Dose: 2.5 mg Documented by: Ascorbic Acid (Vitamin C) 1,000 mg PO BID [facility] Last Admin: 02/05/19 08:21 Dose: 1,000 mg Documented by: Atorvastatin Calcium (Lipitor) 10 mg PO QHS [facility] Last Admin: 02/04/19 21:57 Dose: 10 mg Documented by: Colesevelam HCl (Welchol) 625 mg PO BID [facility] Last Admin: 02/05/19 08:19 Dose: 625 mg Documented by: [facility]ous S[facility] ([facility]) [facility] Last Admin: 02/05/19 08:18 Dose: 325 mg Documented by: Gabapentin (Neurontin) 300 mg PO QHS [facility] Last Admin: 02/04/19 21:57 Dose: 300 mg Documented by: Glucagon () 1 mg IM .X1 PRN PRN Reason: Hypoglycemia Guaifenesin (Robitussin) 20 ml PO Q4H PRN PRN PRN Reason: COUGH Heparin Sodium (Porcine) () 2,500 units IV UD PRN PRN Reason: Dialysis Cath Heparin Flush Sodium Chloride () 250 mls @ 15 mls/hr IV .[id number] PRN PRN Reason: Saline Flush Sodium Chloride () 250 mls @ 15 mls/hr IV .[id number] PRN PRN Reason: Additional IVPB Infusion Dextrose (Dextrose 10%-Water) 250 mls @ 999 mls/hr IV .Q16M PRN; Protocol PRN Reason: HYPOGLYCEMIA Insulin Human Lispro (Humalog Kwikpen (Bkc)) 0 unit SC [facility]; Protocol Last Admin: 02/05/19 06:31 Dose: Not Given Documented by: Levothyroxine Sodium (Synthroid) 25 mcg PO DAILY@0600 [facility] Last Admin: 02/05/19 06:10 Dose: 25 mcg Documented by: Melatonin (Melatonin) 3 mg PO QHS PRN PRN PRN Reason: INSOMNIA Last Admin: 01/31/19 02:30 Dose: 3 mg Documented by: Metoprolol Tartrate (Lopressor (Beta Roxy)) 25 mg PO BID [facility] Last Admin: 01/29/19 09:17 Dose: Not Given Documented by: Morphine Sulfate () 2 mg IV Q3H PRN PRN PRN Reason: Pain Score 6-10/10 Last Admin: 01/31/19 03:58 Dose: 2 mg Documented by: Multivitamins/Minerals (Multivitamin With Minerals) 1 tablet PO DAILY@0800 [facility] Last Admin: 02/05/19 08:18 Dose: 1 tablet Documented by: Nitroglycerin (Nitrostat) 0.4 mg SUBLINGUAL Q5M PRN PRN Reason: CARDIAC/CHEST PAIN Ondansetron HCl (Zofran) 4 mg IV Q8H PRN PRN PRN Reason: NAUSEA/VOMITING Last Admin: 02/05/19 06:11 Dose: 4 mg Documented by: Oxycodone HCl (Oxyir) 5 mg PO Q4H PRN PRN PRN Reason: Pain Score 4-5/10 Last Admin: 02/04/19 18:51 Dose: 5 mg Documented by: Pantoprazole Sodium (Protonix) 40 mg PO DAILY [facility] Last Admin: 02/05/19 08:19 Dose: 40 mg Documented by: Polyethylene Glycol (Miralax) 17 gm PO DAILY PRN PRN PRN Reason: Constipation Last Admin: 01/30/19 11:25 Dose: 17 gm Documented by: Senna (Senokot) 2 tablet PO BID PRN PRN PRN Reason: CONSTIPATION Senna/Docusate Sodium (Senokot-S, Itzel-Colace) 2 tablet PO BID PRN PRN PRN Reason: Constipation Last Admin: 01/30/19 10:00 Dose: 2 tablet Documented by: Sodium Chloride () 10 - 40 ml IV UD PRN PRN Reason: SALINE FLUSH Last Admin: 02/05/19 06:11 Dose: 10 ml Documented by: Sodium Chloride () 10 ml IV UD PRN PRN Reason: Dialysis Catheter Flush Sodium Hypochlorite (Dakins Solution 0.25% (1/2 Strength)) 1 applic TOPICAL DAILY [facility]; Protocol Sucralfate (Carafate) 1 gm PO 1HR_ACHS [facility] Last Admin: 02/05/19 06:09 Dose: 1 gm Documented by: Discharge Diet: Renal Diet Discharge Activity: Return to Normal Activity Home Medications: Medications to take at Discharge Multivit-Min/FA/Lycopen/Lutein [Centrum Silver Tablet] 1 tab PO DAILY 03/16/18 Levothyroxine Sodium [Synthroid] 25 mcg PO DAILY 03/20/18 Ascorbic Acid [Vitamin C] 1,000 mg PO BID 04/21/18 Atorvastatin Calcium [Lipitor] 10 mg PO QHS 07/07/18 Gabapentin [Neurontin] 300 mg PO QHS 07/07/18 Polyethylene Glycol 3350 [Miralax] 17 gm PO DAILY 07/07/18 Pantoprazole Sodium [Protonix] 40 mg PO DAILY #60 tablet 07/14/18 Colesevelam HCl 625 mg PO BID 01/27/19 Ferrous Sulfate [Ferosul] 325 mg PO TID 01/27/19 Senna [Senokot] 2 tab PO DAILY 01/27/19 Sucralfate [Carafate] 1 gm PO ACHS 01/27/19 Acetaminophen [Tylenol Tablet] 650 mg PO Q6H PRN PRN tab 02/05/19 Albuterol Aerosols [Ventolin Aerosols] 2.5 mg INHALATION Q2H PRN PRN vial.neb. 02/05/19 Guaifenesin [Robitussin] 20 ml PO Q4H PRN PRN udc 02/05/19 Heparin 1000 units/ml 2,500 units IV UD PRN vial 02/05/19 Insulin Lispro [Humalog KwikPen] See Protocol SUBCUT ACHS insuln.pen 02/05/19 Mag Hydrox/Al Hydrox/Simeth [Mylanta II] 30 ml PO Q6H PRN PRN udc 02/05/19 Melatonin 3 mg PO QHS PRN PRN tab 02/05/19 Metoprolol Tartrate [Lopressor (beta roxy)] 12.5 mg PO BID tab 02/05/19 Nitroglycerin (INPATIENT USE) [Nitrostat] 0.4 mg SUBLINGUAL Q5M PRN tab.subl 02/05/19 Oxycodone [Oxyir] 5 mg PO Q4H PRN PRN 5 Days #20 tab 02/05/19 Senna/Docusate Sodium [Senokot-S] 2 tab PO BID PRN PRN tab 02/05/19 Sodium Hypochlorite [Dakins Solution 0.25% (1/2 Strength)] 1 applic TOPICAL DAILY bottle 02/05/19 Primary Care Physician: Angelina Caceres DO [Primary Care Provider] - Please follow up with your Primary Care Physician in: within 1-2 weeks of discharge Please Follow Up With: Nephrology When: per dialysis schedule Disposition: Alf Acute Care Minutes spent on discharge:: 50 Patient Condition:: Fair Medical Necessity - Tobacco Use Smoking Status: Never smoker Tobacco Use: Non-smoker Meaningful Use Info Meaningful Use Diagnoses (Choose all that apply): None applicable Code Visit Inpatient E&M: 80349 Disch Hosp
--- NOTE | 2019-02-05 09:49 | PHA.DC.MR ---
Pharmacy Service has performed discharge medication reconciliation for this patient. Home Medications Multivit-Min/FA/Lycopen/Lutein [Centrum Silver Tablet] 1 tab PO DAILY 03/16/18 Levothyroxine Sodium [Synthroid] 25 mcg PO DAILY 03/20/18 Ascorbic Acid [Vitamin C] 1,000 mg PO BID 04/21/18 Atorvastatin Calcium [Lipitor] 10 mg PO QHS 07/07/18 Gabapentin [Neurontin] 300 mg PO QHS 07/07/18 Metoprolol Tartrate [Lopressor (beta jose)] 25 mg PO BID 07/07/18 Polyethylene Glycol 3350 [Miralax] 17 gm PO DAILY 07/07/18 Pantoprazole Sodium [Protonix] 40 mg PO DAILY #60 tablet 07/14/18 Colesevelam HCl 625 mg PO BID 01/27/19 Ferrous Sulfate [Ferosul] 325 mg PO TID 01/27/19 Senna [Senokot] 2 tab PO DAILY 01/27/19 Sucralfate [Carafate] 1 gm PO ACHS 01/27/19 Acetaminophen [Tylenol Tablet] 650 mg PO Q6H PRN PRN tab 02/05/19 Albuterol Aerosols [Ventolin Aerosols] 2.5 mg INHALATION Q2H PRN PRN vial.neb. 02/05/19 Guaifenesin [Robitussin] 20 ml PO Q4H PRN PRN udc 02/05/19 Heparin 1000 units/ml 2,500 units IV UD PRN vial 02/05/19 Insulin Lispro [Humalog KwikPen] See Protocol SUBCUT ACHS insuln.pen 02/05/19 Mag Hydrox/Al Hydrox/Simeth [Mylanta II] 30 ml PO Q6H PRN PRN udc 02/05/19 Melatonin 3 mg PO QHS PRN PRN tab 02/05/19 Nitroglycerin (INPATIENT USE) [Nitrostat] 0.4 mg SUBLINGUAL Q5M PRN tab.subl 02/05/19 Oxycodone [Oxyir] 5 mg PO Q4H PRN PRN 5 Days #20 tab 02/05/19 Senna/Docusate Sodium [Senokot-S] 2 tab PO BID PRN PRN tab 02/05/19 Sodium Hypochlorite [Dakins Solution 0.25% (1/2 Strength)] 1 applic TOPICAL DAILY bottle 02/05/19 The patient's discharge medication list was reviewed for discrepancies and discrepancies were resolved.
[2019-02-05] MEDS: DAKIN'S SOL HALF STRENGTH (=0.25%) 1 APPLIC TOPICAL (10:55)
--- NOTE | 2019-02-05 10:55 | NURSING ---
report called to LTTIM RN
[2019-02-05] MEDS: Insulin Lispro 100 UNIT/ML INSULN.PEN SC (10:59)
[2019-02-05 11:06] LABS: Bedside Glucose 185 mg/dL (70-110)
[2019-02-05] MEDS: Albuterol 2.5 MG/3 ML VIAL.NEB. INHALATION (11:08)
--- NOTE | 2019-02-05 11:13 | NURSING ---
Maxim RN at [facility] is nurse who received report
--- NOTE | 2019-02-05 14:06 | EKGRS_ITS ---
Test Reason : CP Blood Pressure : / mmHG Vent. Rate : 104 BPM Atrial Rate : 104 BPM P-R Int : 168 ms QRS Dur : 080 ms QT Int : 304 ms P-R-T Axes : 084 055 103 degrees QTc Int : 399 ms Sinus tachycardia Low voltage QRS Nonspecific T wave abnormality Abnormal ECG When compared with ECG of 01-FEB-2019 05:31, MANUAL COMPARISON REQUIRED, DATA IS UNCONFIRMED Confirmed by ANA PAULA REYES ([id number]), editorial cartoonist JAIDEN KRISHNAMURTHY ([id number]) on 02/09/2019 3:12:24 PM Referred By: Shaheen Contreras Confirmed By:ANA PAULA REYES
--- NOTE | 2019-02-05 14:25 | EKG12_ITS ---
Test Reason : Blood Pressure : / mmHG Vent. Rate : 134 BPM Atrial Rate : 125 BPM P-R Int : 000 ms QRS Dur : 076 ms QT Int : 268 ms P-R-T Axes : 000 085 -36 degrees QTc Int : 400 ms Atrial fibrillation Low voltage QRS Abnormal ECG Confirmed by LYLA ALFONSO, JONNA ([id number]), image editor JAIDEN KRISHNAMURTHY ([id number]) on 02/12/2019 3:36:15 PM Referred By: Shaheen Contreras Confirmed By:JONNA ARITA MD
[2019-02-05] MEDS: Metoprolol Tartrate 5 MG/5 ML Vial 2.5 MG IV ×2 (14:49→15:26)
--- NOTE | 2019-02-05 15:33 | CHAPLAIN ---
patient has been found sleeping on attempts to visit with him
--- NOTE | 2019-02-05 16:08 | NURSING ---
Called updated report to Maxim at [facility] at this time. [phone].
== END 2019-02-05 16:07 | DRG 673 ==
LOC: ED 18:09 → PCU 18:47
PROVIDERS: Anesthesiology; Internal Medicine; Internal Medicine Critical Care Medicine; Internal Medicine Nephrology; Student in an Organized Health Care Education/Training Program; Surgery; Admitting Provider Internal Medicine; Emergency Provider Emergency Medicine; Family Provider Family Medicine; PCP Family Medicine; Referring Provider Internal Medicine; Visit Provider Internal Medicine
PROC: 0JH63XZ Insertion of Tunneled Vascular Access Device into Chest Subcutaneous Tissue and Fascia, Percutaneous Approach (ICD-10-PCS; principal; 2019-02-01 12:25)
DX: N17.9 Acute kidney failure, unspecified (principal); L89.323 Pressure ulcer of left buttock, stage 3; L89.313 Pressure ulcer of right buttock, stage 3; L89.153 Pressure ulcer of sacral region, stage 3; G82.20 Paraplegia, unspecified; E87.1 Hypo-osmolality and hyponatremia; J90 Pleural effusion, not elsewhere classified; E03.9 Hypothyroidism, unspecified; E11.42 Type 2 diabetes mellitus with diabetic polyneuropathy; N28.9 Disorder of kidney and ureter, unspecified; N18.3 Chronic kidney disease, stage 3 (moderate); E78.5 Hyperlipidemia, unspecified; Z89.612 Acquired absence of left leg above knee; Z93.3 Colostomy status; I12.9 Hypertensive chronic kidney disease with stage 1 through stage 4 chronic kidney disease, or unspecified chronic kidney disease; D63.8 Anemia in other chronic diseases classified elsewhere; E87.70 Fluid overload, unspecified; R09.02 Hypoxemia; R06.89 Other abnormalities of breathing; V89.2XXS Person injured in unspecified motor-vehicle accident, traffic, sequela; Z93.6 Other artificial openings of urinary tract status; Z79.84 Long term (current) use of oral hypoglycemic drugs; Z89.621 Acquired absence of right hip joint
CPT/HCPCS: 32555; 36415; 71045; 71046; 71250; 74019; 76770; 77001; 80048; 80053; 80069; 80076; 81001; 82274; 82570; 82728; 82962; 83036; 83540; 83550; 83605; 83615; 83690; 83735; 83880; 84100; 84156; 84300; 84443; 84484; 85025; 85027; 85610; 85730; 86706; 86850; 86900; 86901; 86920; 86922; 87340; 90937; 93005; 94640; 97163; 97166; 97530; 97535; 97802; 99285; J7030; J7120; P9016; A4216; C1752; G0257; J1940; J2405